=== PATIENT | female | born 1960 | race Caucasian/White ===

== ENCOUNTER 2017-04-07 21:57 | Observation (INO) | payer OTHER ==
[2017-04-07] MEDS ORDERED: Albuterol/Ipratropium 3.0-0.5 MG/3 ML Neb Soln NEB ONE (22:00)
[2017-04-07] MEDS ORDERED: methylPREDNISolone Sodium Succinate 125 MG/2 ML SDV IVPUSH ONE (22:01)
--- NOTE | 2017-04-07 22:03 | EDM.PDOC ---
ED HPI GENERAL MEDICAL PROBLEM - General Stated Complaint: CHEST PAIN/TROUBLE BREATHING Time Seen by Provider: 04/07/17 22:02 Source of Information: Reports: Patient - History of Present Illness INITIAL COMMENTS - FREE TEXT/NARRATIVE: HISTORY AND PHYSICAL: History of present illness: []Patient with history of colon cancer with metastasis presents with chest pain and shortness breath rates pain 5 out of 10 no radiation arm neck or jaw no association of diaphoresis there is a reproducible component over the left chest. She also has secondary complaint of throat swelling and tongue swelling No fever nausea vomiting chills sweats Review of systems: As per history of present illness and below otherwise all systems reviewed and negative. Past medical history: As per history of present illness and as reviewed below otherwise noncontributory. Surgical history: As per history of present illness and as reviewed below otherwise noncontributory. Social history: No reported history of drug or alcohol abuse. Family history: As per history of present illness and as reviewed below otherwise noncontributory. Physical exam: HEENT: Atraumatic, normocephalic, pupils reactive, negative for conjunctival pallor or scleral icterus, mucous membranes moist, throat clear, neck supple, nontender, trachea midline. No 12 tongue swelling lip swelling or oral pharyngeal edema no stridor Lungs: Clear to auscultation, breath sounds equal bilaterally, chest nontender. Heart: S1S2, regular, negative for clicks, rubs, or JVD. Abdomen: Soft, nondistended, nontender. Negative for masses or hepatosplenomegaly. Negative for costovertebral tenderness. Pelvis: Stable nontender. Genitourinary: Deferred. Rectal: Deferred. Extremities: Atraumatic, negative for cords or calf pain. Neurovascular unremarkable. Neuro: Awake, alert, oriented. Cranial nerves II through XII unremarkable. Cerebellum unremarkable. Motor and sensory unremarkable throughout. Exam nonfocal. Diagnostics: []Lab as below EKG Chest [address] chest angiogram no PE Therapeutics: []Solu-Medrol 125 mg IV DuoNeb Dilaudid 1 mg IV Patient admitted observation telemetry recommend consult with Dr. Winters cardiology Impression: Atypical chest pain []Chest tightness Shortness of breath Colon cancer with metastasis Last chemotherapy 1 week prior Definitive disposition and diagnosis as appropriate pending reevaluation and review of above. chest/abdomen Pain Score (Numeric/FACES): 7 - Related Data Allergies Allergy/AdvReac Type Severity Reaction Status Date / Time hydrocodone Allergy Unknown Hives Verified 04/07/17 22:35 ibuprofen Allergy Unknown Hives Verified 04/07/17 22:35 morphine Allergy Unknown Seizure Verified 04/07/17 22:35 nitroglycerin Allergy Unknown Difficulty Verified 04/07/17 22:35 Breathing caffeine Allergy Vomiting Verified 04/07/17 22:35 diphenhydramine HCl Allergy Excitabilit Verified 04/07/17 22:35 [From Benadryl] y Home Meds: Home Meds Diltiazem HCl [Diltiazem ER] 360 mg PO BEDTIME 05/09/14 [History] Hydrochlorothiazide 12.5 mg PO DAILY 05/09/14 [History] Insulin Glarg,Human.Rec.Analog [Lantus] 28 units SUBCUT BEDTIME 05/09/14 [ History] Pantoprazole [Protonix] 40 mg PO BIDAC 05/09/14 [History] atorvaSTATin Calcium [Atorvastatin Calcium] 20 mg PO BEDTIME 05/09/14 [History] metFORMIN [Glucophage] 1,000 mg PO BIDMEALS 05/09/14 [History] Insulin Aspart [NovoLOG] 14 units SQ TIDAC 12/02/14 [History] Dexamethasone 8 mg PO ASDIRECTED 10/27/15 [History] HYDROmorphone [Dilaudid] 2 mg PO Q6H PRN 10/27/15 [History] Loratadine 10 mg PO DAILY 10/27/15 [History] Ondansetron 4 mg PO Q6H PRN 10/27/15 [History] Prochlorperazine [Compazine] 10 mg PO QID PRN 10/27/15 [History] Valsartan 160 mg PO DAILY 10/27/15 [History] LORazepam [Ativan] 1 mg PO QID 12/26/15 [History] Estrogens, Conjugated [Premarin Vaginal Crm] 1 applic VAG ASDIRECTED 04/07/17 [ History] Past Medical History Cardiovascular History: Reports: High Cholesterol, Hypertension Gastrointestinal History: Reports: GERD Other Gastrointestinal History: hernia, colon CA 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: Psychiatric History: Reports: Anxiety, Depression Endocrine/Metabolic History: Reports: Diabetes, Type II Oncologic (Cancer) History: Reports: Colon - Past Surgical History GI Surgical History: Reports: Cholecystectomy, Colon, Hernia Repair/Other Social & Family History - Family History Family Medical History: Noncontributory - Tobacco Use Smoking Status *Q: Never Smoker Second Hand Smoke Exposure: Yes - Alcohol Use Days Per Week of Alcohol Use: 0 - Recreational Drug Use Recreational Drug Use: No ED ROS GENERAL - Review of Systems Review Of Systems: ROS reveals no pertinent complaints other than HPI. ED EXAM, GENERAL - Physical Exam Exam: See Below Course - Vital Signs Last Recorded V/S: Last Vital Signs Temp 36.3 C 04/07/17 22:03 Pulse 91 04/08/17 00:14 Resp 24 H 04/08/17 00:14 BP 188/109 H 04/08/17 00:14 Pulse Ox 99 04/08/17 00:14 - Orders/Labs/Meds Orders: Active Orders 24 hr Category Date Time Status EKG Documentation Completion [RC] STAT Care 04/07/17 22:01 Active RT Aerosol Therapy [RC] ASDIRECTED Care 04/07/17 22:01 Active CTA Chest W WO Contrast [Ang Chest] [CT] Stat Exams 04/07/17 23:33 Taken Chest 1V Frontal [CR] Stat Exams 04/07/17 22:01 Taken UA W/MICROSCOPIC [URIN] Stat Lab 04/08/17 01:00 Received Labs: Laboratory Tests 04/07/17 04/07/17 04/07/17 Range/Units 22:25 22:25 22:25 WBC 3.80 L (4.0-11.0) K/uL RBC 4.04 L (4.30-5.90) M/uL Hgb 12.5 (12.0-16.0) g/dL Hct 35.8 L (36.0-46.0) % MCV 88.6 (80.0-98.0) fL MCH 30.9 (27.0-32.0) pg MCHC 34.9 (31.0-37.0) g/dL RDW Std Deviation 57.1 (28.0-62.0) fl RDW Coeff of Ej 18 H (11.0-15.0) % Plt Count 135 L (150-400) K/uL MPV 9.80 (7.40-12.00) fL Neut % (Auto) 18.6 L (48.0-80.0) % Lymph % (Auto) 77.1 H (16.0-40.0) % [place] % (Auto) 3.2 (0.0-15.0) % Eos % (Auto) 1.1 (0.0-7.0) % Baso % (Auto) 0.0 (0.0-1.5) % Neut # (Auto) 0.7 L (1.4-5.7) K/uL Lymph # (Auto) 2.9 H (0.6-2.4) K/uL [place] # (Auto) 0.1 (0.0-0.8) K/uL Eos # (Auto) 0.0 (0.0-0.7) K/uL Baso # (Auto) 0.0 (0.0-0.1) K/uL Nucleated RBC % 0.0 /100WBC Nucleated RBCs # 0 K/uL D-Dimer, Quantitative (0.0-0.52) mg/LFEU Sodium 136 (136-146) mmol/L Potassium 3.3 L (3.5-5.1) mmol/L Chloride 103 (98-110) mmol/L Carbon Dioxide 18 L (21-31) mmol/L BUN 16 (6.0-23.0) mg/dL Creatinine 0.9 (0.6-1.5) mg/dL Est Cr Clr Drug Dosing TNP Estimated GFR (MDRD) > 60.0 ml/min Glucose 274 H (60-110) mg/dL Calcium 8.7 L (8.8-10.8) mg/dL Total Bilirubin 1.3 (0.1-1.5) mg/dL AST 34 (5-40) IU/L ALT 82 H (8-54) IU/L Alkaline Phosphatase 153 H (40-150) Troponin I < 0.10 (0.0-0.29) NG/ML Total Protein 6.7 (6.0-8.0) g/dL Albumin 3.8 (3.5-5.0) g/dL Globulin 2.9 (2.0-3.5) g/dL Albumin/Globulin Ratio 1.3 (1.3-2.8) // Range/Units 22:25 WBC (4.0-11.0) K/uL RBC (4.30-5.90) M/uL Hgb (12.0-16.0) g/dL Hct (36.0-46.0) % MCV (80.0-98.0) fL MCH (27.0-32.0) pg MCHC (31.0-37.0) g/dL RDW Std Deviation (28.0-62.0) fl RDW Coeff of Ej (11.0-15.0) % Plt Count (150-400) K/uL MPV (7.40-12.00) fL Neut % (Auto) (48.0-80.0) % Lymph % (Auto) (16.0-40.0) % [place] % (Auto) (0.0-15.0) % Eos % (Auto) (0.0-7.0) % Baso % (Auto) (0.0-1.5) % Neut # (Auto) (1.4-5.7) K/uL Lymph # (Auto) (0.6-2.4) K/uL [place] # (Auto) (0.0-0.8) K/uL Eos # (Auto) (0.0-0.7) K/uL Baso # (Auto) (0.0-0.1) K/uL Nucleated RBC % /100WBC Nucleated RBCs # K/uL D-Dimer, Quantitative 1.34 H (0.0-0.52) mg/LFEU Sodium (136-146) mmol/L Potassium (3.5-5.1) mmol/L Chloride (98-110) mmol/L Carbon Dioxide (21-31) mmol/L BUN (6.0-23.0) mg/dL Creatinine (0.6-1.5) mg/dL Est Cr Clr Drug Dosing Estimated GFR (MDRD) ml/min Glucose (60-110) mg/dL Calcium (8.8-10.8) mg/dL Total Bilirubin (0.1-1.5) mg/dL AST (5-40) IU/L ALT (8-54) IU/L Alkaline Phosphatase (40-150) Troponin I (0.0-0.29) NG/ML Total Protein (6.0-8.0) g/dL Albumin (3.5-5.0) g/dL Globulin (2.0-3.5) g/dL Albumin/Globulin Ratio (1.3-2.8) Meds: Medications Discontinued Medications Generic Name Dose Route Start Last Admin Trade Name Marshall PRN Reason Stop Dose Admin Albuterol/Ipratropium 3 ml 04/07/17 22:00 04/07/17 22:06 Duoneb 3.0-0.5 Mg/3 Ml NEB 04/07/17 22:01 3 ml ONETIME ONE Administration Hydromorphone HCl 1 mg 04/07/17 23:42 04/07/17 23:48 Dilaudid IVPUSH 04/07/17 23:43 1 mg ONETIME ONE Administration Iopamidol 50 ml 04/08/17 00:15 04/08/17 00:16 Isovue-370 (76%) IV 04/08/17 00:16 50 ml ONETIME ONE Administration Methylprednisolone Sodium Succinate 125 mg 04/07/17 22:01 04/07/17 22:39 Solu-Medrol IVPUSH 04/07/17 22:02 125 mg ONETIME ONE Administration Morphine Sulfate 2 mg 04/07/17 23:41 04/08/17 00:11 Morphine IV 04/07/17 23:42 Not Given ONETIME ONE Departure - Departure Time of Disposition: 01:14 Disposition: Refer to Observation Condition: Fair Clinical Impression: Atypical chest pain - Discharge Information - My Orders Last 24 Hours: My Active Orders 04/07/17 22:01 EKG Documentation Completion [RC] STAT RT Aerosol Therapy [RC] ASDIRECTED Chest 1V Frontal [CR] Stat 04/07/17 23:33 CTA Chest W WO Contrast [Ang Chest] [CT] Stat 04/08/17 01:00 UA W/MICROSCOPIC [URIN] Stat - Assessment/Plan Last 24 Hours: My Active Orders 04/07/17 22:01 EKG Documentation Completion [RC] STAT RT Aerosol Therapy [RC] ASDIRECTED Chest 1V Frontal [CR] Stat 04/07/17 23:33 CTA Chest W WO Contrast [Ang Chest] [CT] Stat 04/08/17 01:00 UA W/MICROSCOPIC [URIN] Stat
[2017-04-07 23:04] LABS: CHLORIDE,CL 103 mmol/L (98-110); SODIUM,NA 136 mmol/L (136-146)
[2017-04-07] MEDS ORDERED: Morphine 10 MG/ML Syringe IV ONE (23:41)
[2017-04-07] MEDS ORDERED: HYDROmorphone 2 MG/ML Syringe IVPUSH ONE (23:42)
[2017-04-08] MEDS ORDERED: Iopamidol 755 MG/ML 50 ML Bottle IV ONE (00:15)
[2017-04-08] MEDS ORDERED: Potassium Chloride 20 MEQ Tab.ER PO ONE (03:12)
[2017-04-08] MEDS ORDERED: Acetaminophen/oxyCODONE 325-5 MG Tab PO PRN (03:14)
[2017-04-08] MEDS ORDERED: Ondansetron 4 MG Tab.DIS PO PRN (03:14)
[2017-04-08] MEDS ORDERED: LORazepam 1 MG Tab PO PRN (03:14)
[2017-04-08] MEDS: Insulin Glargine,Human Rec. Analog 100 Units/ML 3 ML Pen SUBCUT SCH ×2 (03:26→20:24)
[2017-04-08] MEDS: atorvaSTATin 20 MG Tab PO SCH ×2 (03:26→20:23)
[2017-04-08] MEDS: Diltiazem 180 MG Cap.CD PO SCH ×2 (03:26→20:23)
[2017-04-08] MEDS: Pantoprazole 40 MG Tab.CR PO SCH ×2 (06:40→16:26)
[2017-04-08] MEDS: Insulin Aspart 100 Units/ML 3 ML Pen SUBCUT SCH ×3 (07:00→17:15)
[2017-04-08] MEDS: Loratadine 10 MG Tab PO SCH (08:11)
[2017-04-08] MEDS: Hydrochlorothiazide 25 MG Tab PO SCH (08:11)
[2017-04-08] MEDS ORDERED: Benzocaine/Cetylpyridinium/Menthol Lozenge MUCMEM PRN (08:37)
--- NOTE | 2017-04-08 08:45 | PCM.HP ---
H&P History of Present Illness - General Date of Service: 04/08/17 - History of Present Illness Initial Comments - Free Text/Narative: 57 yo female with metastatic colon cancer admitted for atypical chest pain. She c/o of sorethroat, diffuse pain in chest and abdomen and diarhea. She denies fever, chills, n/v, pain on swallowing, headache, cough, dysuria, frequency or urgency. She is doing her third round of chemo one week ago. She had similar symptoms during chemotherapy but has not experienced sore throat. Her initial troponin is negatvie. No acute EKG changes. Her chest angio negative. Her Dimer was 1.34, UA 30-40 wbc. In the ED, she received solumedrol. Throat Pain Score (Numeric/FACES): 5 chest/abdomen Pain Score (Numeric/FACES): 2 - Related Data Allergies/Adverse Reactions: Allergies Allergy/AdvReac Type Severity Reaction Status Date / Time hydrocodone Allergy Unknown Hives Verified 04/07/17 22:35 ibuprofen Allergy Unknown Hives Verified 04/07/17 22:35 morphine Allergy Unknown Seizure Verified 04/07/17 22:35 nitroglycerin Allergy Unknown Difficulty Verified 04/07/17 22:35 Breathing caffeine Allergy Vomiting Verified 04/07/17 22:35 diphenhydramine HCl Allergy Excitabilit Verified 04/07/17 22:35 [From Benadryl] y Home Medications: Home Meds Diltiazem HCl [Diltiazem ER] 360 mg PO BEDTIME 05/09/14 [History] Hydrochlorothiazide 12.5 mg PO DAILY 05/09/14 [History] Insulin Glarg,Human.Rec.Analog [Lantus] 50 units SUBCUT BEDTIME 05/09/14 [ History] Pantoprazole [Protonix] 40 mg PO BIDAC 05/09/14 [History] atorvaSTATin Calcium [Atorvastatin Calcium] 20 mg PO BEDTIME 05/09/14 [History] metFORMIN [Glucophage] 1,000 mg PO BIDMEALS 05/09/14 [History] Insulin Aspart [NovoLOG] 14 units SQ TIDAC 12/02/14 [History] Dexamethasone 8 mg PO ASDIRECTED 10/27/15 [History] HYDROmorphone [Dilaudid] 2 mg PO Q6H PRN 10/27/15 [History] Loratadine 10 mg PO DAILY 10/27/15 [History] Prochlorperazine [Compazine] 10 mg PO QID PRN 10/27/15 [History] Valsartan 160 mg PO DAILY 10/27/15 [History] LORazepam [Ativan] 1 mg PO QID PRN 12/26/15 [History] Estrogens, Conjugated [Premarin Vaginal Crm] 1 applic VAG ASDIRECTED 04/07/17 [ History] Ondansetron [Zofran ODT] 4 mg PO Q4H PRN 04/08/17 [History] oxyCODONE HCl/Acetaminophen [oxyCODONE-Acetaminophen 5-325] 1 tab PO Q4H PRN 03/20 [History] Past Medical History Cardiovascular History: Reports: High Cholesterol, Hypertension Respiratory History: Reports: None Gastrointestinal History: Reports: GERD Other Gastrointestinal History: hernia, colon [place] Genitourinary History: Reports: None 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 History: Reports: None Neurological History: Reports: None Psychiatric History: Reports: Anxiety, Depression Endocrine/Metabolic History: Reports: Diabetes, Type II Hematologic History: Reports: None Immunologic History: Reports: None Oncologic (Cancer) History: Reports: Colon Dermatologic History: Reports: None - Infectious Disease History Infectious Disease History: Reports: None - Past Surgical History HEENT Surgical History: Reports: Adenoidectomy, Tonsillectomy GI Surgical History: Reports: Cholecystectomy, Colon, Hernia Repair/Other Female Surgical History: Reports: Hysterectomy, Salpingo-Oophorectomy Endocrine Surgical History: Reports: None Musculoskeletal Surgical History: Reports: None Dermatological Surgical History: Reports: None Social & Family History - Family History Family Medical History: Noncontributory GI: Reports: None - Tobacco Use Smoking Status *Q: Never Smoker Second Hand Smoke Exposure: Yes - Caffeine Use Caffeine Use: Reports: None - Alcohol Use Days Per Week of Alcohol Use: 0 - Recreational Drug Use Recreational Drug Use: No H&P Review of Systems - Review of Systems: Review Of Systems: See Below General: Reports: No Symptoms HEENT: Reports: No Symptoms Pulmonary: Reports: No Symptoms. Denies: Shortness of Breath, Cough Cardiovascular: Reports: Chest Pain. Denies: Palpitations Gastrointestinal: Reports: Abdominal Pain, Diarrhea Genitourinary: Reports: No Symptoms Musculoskeletal: Reports: No Symptoms Skin: Reports: No Symptoms Psychiatric: Reports: No Symptoms Neurological: Reports: No Symptoms Exam - Exam Exam: See Below - Vital Signs Vital Signs: Last Vital Signs Temp 97.7 F 04/08/17 07:48 Pulse 98 04/08/17 07:48 Resp 16 04/08/17 07:48 BP 143/86 H 04/08/17 08:10 Pulse Ox 96 04/08/17 07:48 Weight: 72.575 kg - Exam General: Alert, Oriented HEENT: Conjunctiva Clear, EOMI, Other (Throat: no erythema, No exudates. No tonsils visualized.) Neck: Supple, Trachea Midline Lungs: Clear to Auscultation, Normal Respiratory Effort Cardiovascular: Regular Rate, Regular Rhythm Abdomen: Normal Bowel Sounds, Soft. No: Distention, Rigidity, Tenderness Back Exam: Normal Inspection Extremities: Normal Inspection Neurological: Cranial Nerves Intact Neuro Extensive - Mental Status: Alert, Oriented x3 - Patient Data Lab Results Last 24 hrs: Laboratory Results - last 24 hr 04/08/17 04/08/17 04/08/17 Range/Units 02:20 04:00 06:30 POC Glucose 400 H 372 H (60-110) mg/dL Troponin I < 0.10 (0.0-0.29) NG/ML Result Diagrams: 04/08/17 10:45 04/07/17 22:25 *Q Meaningful Use (ADM) - VTE *Q VTE Criteria *Q: - Stroke *Q Stroke Criteria *Q: - AMI *Q AMI Criteria *Q: Problem List Initiated/Reviewed/Updated: Yes Orders Last 24hrs: Active Orders 24 hr Category Date Time Status Blood Glucose Check, Bedside [] [facility] Care 04/08/17 03:13 Active Communication Order [RC] DAILY Care 04/08/17 03:13 Active Telemetry Monitoring [Cardiac Monitoring] [RC] Q8H Care 04/08/17 01:17 Active [place] [employer] Diet [DIET] Diet 04/08/17 Breakfast Active TROPONIN I [CHEM] Q6H Lab 04/08/17 10:25 Ordered Acetaminophen/oxyCODONE [Percocet 325-5 MG] Med 04/08/17 03:14 Active 1 tab PO Q4H PRN Benzocaine/Cetylpyrd/Menthol [Cepacol Sore Throat] Med 04/08/17 08:37 Ordered 1 lozenge MUCMEM Q2HR PRN Diltiazem [Cardizem CD] Med 04/08/17 03:04 Active 360 mg PO BEDTIME Hydrochlorothiazide Med 04/08/17 09:00 Active 12.5 mg PO DAILY Insulin Aspart [NovoLOG] Med 04/08/17 07:30 Active 14 unit SUBCUT TIDAC Insulin Glarg,Human.Rec.Analog [LantUS Solostar] Med 04/08/17 03:15 Active 50 units SUBCUT BEDTIME LORazepam [Ativan] Med 04/08/17 03:14 Active 1 mg PO QID PRN Loratadine [Claritin] Med 04/08/17 09:00 Active 10 mg PO DAILY Ondansetron [Zofran ODT] Med 04/08/17 03:14 Active 4 mg PO Q4H PRN Pantoprazole [ProTONIX] Med 04/08/17 07:30 Active 40 mg PO BIDAC Potassium Chloride Med 04/08/17 09:00 Ordered 40 meq PO DAILY Valsartan [Diovan] Med 04/08/17 09:00 Active 160 mg PO DAILY atorvaSTATin [Lipitor] Med 04/08/17 03:02 Active 20 mg PO BEDTIME Medication Orders Atorvastatin Calcium (Lipitor) 20 mg PO BEDTIME [facility] Last Admin: 04/08/17 03:26 Dose: 20 mg Benzocaine/Menthol (Cepacol Sore Throat) 1 lozenge MUCMEM Q2HR PRN PRN Reason: Shortness of Breath Diltiazem HCl (Cardizem Cd) 360 mg PO BEDTIME [facility] Last Admin: 04/08/17 03:26 Dose: 360 mg Hydrochlorothiazide (Hydrochlorothiazide) 12.5 mg PO DAILY [facility] Last Admin: 04/08/17 08:11 Dose: 12.5 mg Insulin Aspart (Novolog) 14 unit SUBCUT TIDAC [facility] Last Admin: 04/08/17 07:00 Dose: 14 units Insulin Glargine (Lantus Solostar) 50 units SUBCUT BEDTIME [facility] Last Admin: 04/08/17 03:26 Dose: 50 units Loratadine (Claritin) 10 mg PO DAILY [facility] Last Admin: 04/08/17 08:11 Dose: 10 mg Lorazepam (Ativan) 1 mg PO QID PRN PRN Reason: Anxiety Ondansetron HCl (Zofran Odt) 4 mg PO Q4H PRN PRN Reason: Nausea/Vomiting Oxycodone/Acetaminophen (Percocet 325-5 Mg) 1 tab PO Q4H PRN PRN Reason: Pain (moderate 4-6) Last Admin: 04/08/17 06:09 Dose: 1 tab Pantoprazole Sodium (Protonix) 40 mg PO BIDAC MARIA T Last Admin: 04/08/17 06:40 Dose: 40 mg Potassium Chloride (Potassium Chloride) 40 meq PO DAILY MARIA T Valsartan (Diovan) 160 mg PO DAILY [facility] Last Admin: 04/08/17 08:10 Dose: 160 mg Assessment/Plan Comment:: 57 yo female admitted for r/o ACS trend troponin monitor on telemetry UA suggestive UTI start levaquin urine culture pending Diarrhea start IVF NS monitor electrolytes
[2017-04-08] MEDS ORDERED: Potassium Chloride 10% 20 MEQ/15 ML Soln 30 ML UD Cup PO SCH (09:00)
[2017-04-08] MEDS ORDERED: Alum Hydrox/Mag Hydrox/Simeth 15 ML, Metoclopramide 5 MG, Lidocaine 2% 5 ML PO ONE ×6 (09:56→10:15)
[2017-04-08] MEDS: Levofloxacin 500 MG Tab PO SCH (10:07)
[2017-04-08] MEDS: HYDROmorphone 2 MG Tab PO PRN ×3 (10:07→23:34)
[2017-04-08] MEDS: Sodium Chloride 0.9% 1,000 ML IV SCH ×2 (10:11→18:09)
[2017-04-08 11:56] LABS: CHLORIDE,CL 104 mmol/L (98-110); SODIUM,NA 134 mmol/L (136-146)
--- NOTE | 2017-04-08 15:17 | CR ---
EXAM DATE: 04/08/17 PATIENT'S AGE: 57 Patient: JOCELYNN SANTIAGO Facility: [place], [place] Site . Site : 1960 Study: XRay Chest [id number]/5/[id number] 10:46:20 PM Ordering Physician: Doctor Esparza Final Report: INDICATION: Shortness of breath TECHNIQUE: Chest 1 view. COMPARISON: FINDINGS: Cardiovascular and mediastinum: Heart size and vasculature are normal in caliber and appearance. Left-sided subclavian line tip terminates in the distal SVC. Mediastinum is within normal limits. Lungs and pleural space: Lungs are clear. No sign of infiltrate or mass. No sign of pleural effusion. No pneumothorax. Bones and soft tissues: No significant findings. IMPRESSION: Unremarkable chest. Dictated by Boyd Fernando MD @ 04/07/2017 10:52:18 PM Dictated by: Boyd Fernando MD @ 04/07/2017 22:52:21 (Electronic Signature) Report Signed by Proxy. [facility]
--- NOTE | 2017-04-08 16:15 | CT ---
EXAM DATE: 04/08/17 PATIENT'S AGE: 57 Patient: JOCELYNN SANTIAGO Facility: [place], [place] Site . Site : 1960 Study: CT Chest Angio [id number] 12:20:21 AM Ordering Physician: Sury Malik Final Report: INDICATION: Elevated D-dimer TECHNIQUE: CT chest pulmonary angiogram acquired with i.v. 50 mL Isovue 370. Coronal and sagittal reformats were obtained. COMPARISON: 03/10/2008 FINDINGS: Cardiovascular structures: The pulmonary arteries are unremarkable in appearance with no evidence of acute pulmonary embolism. Thickening of the right and left ventricular myocardium is noted. No sign of aneurysm or dissection in the thoracic aorta. Severe coronary artery atherosclerotic calcifications are noted. Mediastinum and diane: Calcified right cardiophrenic lymph node, right hilar, subcarinal and precarinal lymph nodes are present from prior granulomatous infection. Left Port-A-Cath present. Lungs: Unremarkable. Pleura and pericardium: No pleural effusions are seen. No significant pericardial effusion is present. Chest wall and axilla: No mass or adenopathy seen. Bones: No significant findings. Upper abdomen: Innumerable calcified granulomas are seen within the visualized liver and spleen. IMPRESSION: 1. No CT evidence of pulmonary embolism seen. 2. Thickening of the right and left ventricular myocardium is noted. Severe coronary artery atherosclerotic calcifications are noted. Cardiology consultation recommended. Dictated by Jarret Quinteros MD @ 04/08/2017 12:29:18 AM Dictated by: Jarret Quinteros MD @ 04/08/2017 00:30:52 (Electronic Signature) Report Signed by Proxy. [facility]
[2017-04-09] MEDS: Sodium Chloride 0.9% 1,000 ML IV SCH (02:14)
[2017-04-09] MEDS: Pantoprazole 40 MG Tab.CR PO SCH (07:17)
[2017-04-09] MEDS: Insulin Aspart 100 Units/ML 3 ML Pen SUBCUT SCH (07:49)
[2017-04-09] MEDS: Loratadine 10 MG Tab PO SCH (08:29)
[2017-04-09] MEDS: Hydrochlorothiazide 25 MG Tab PO SCH (08:29)
[2017-04-09 08:30] VITALS: BP 129/66
[2017-04-09 08:53] LABS: CHLORIDE,CL 107 mmol/L (98-110); SODIUM,NA 135 mmol/L (136-146)
[2017-04-09] MEDS: Levofloxacin 500 MG Tab PO SCH (10:01)
--- NOTE | 2017-04-10 23:54 | PCM.DCSUM1 ---
Discharge Summary - Hospital Course Free Text/Narrative:: 57-year-old female with history of admitted for rule out ACS. Her initial symptoms were chest pain, shortness of breath, tongue swelling, diffuse abdominal pain and diarrhea. In emergency room she was given Solu-Medrol. D- dimer was 1.34, chest x-ray is negative chest CT was negative for PE. EKG did not reveal any ST or T wave changes. Her UA was positive for UTI. Rapid strep screen was negative. She was hydrated with IVF. She was started on PO Levaquin. Her potassium was 3.3 and was replaced. Her white count improved from 2.4-5.4 also could be from Solu-Medrol she received from the emergency room. Troponin x3 negative She did not have any diarrhea since admission and she improved. She is discharged in stable condition. Discharged with Levaquin for 6 days to resume home medications. follow up with her PCP and oncology. - Discharge Data Discharge Date: 04/09/17 Discharge Disposition: Home, Self-Care 01 Condition: Good - Patient Instructions Diet: Heart Healthy Diet, Diabetic Diet Activity: As Tolerated Driving: Do Not Drive Showering/Bathing: May Shower Notify Provider of: Fever, Increased Pain, Swelling and Redness, Drainage, Nausea and/or Vomiting - Discharge Plan Prescriptions/Med Rec: Levofloxacin [Levaquin] 500 mg PO Q24H #6 tablet Home Medications: Home Meds Diltiazem HCl [Diltiazem 24Hr ER] 360 mg PO BEDTIME 05/09/14 [History] Hydrochlorothiazide 12.5 mg PO DAILY 05/09/14 [History] Insulin Glarg,Human.Rec.Analog [Lantus] 50 units SUBCUT BEDTIME 05/09/14 [ History] Pantoprazole [ProTONIX] 40 mg PO BIDAC 05/09/14 [History] atorvaSTATin Calcium [Atorvastatin Calcium] 20 mg PO BEDTIME 05/09/14 [History] metFORMIN [Glucophage] 1,000 mg PO BIDMEALS 05/09/14 [History] Insulin Aspart [NovoLOG] 14 units SQ TIDAC 12/02/14 [History] Dexamethasone 8 mg PO ASDIRECTED 10/27/15 [History] HYDROmorphone [Dilaudid] 2 mg PO Q6H PRN 10/27/15 [History] Loratadine 10 mg PO DAILY 10/27/15 [History] Prochlorperazine [Compazine] 10 mg PO QID PRN 10/27/15 [History] Valsartan 160 mg PO DAILY 10/27/15 [History] LORazepam [Ativan] 1 mg PO QID PRN 12/26/15 [History] Estrogens, Conjugated [Premarin Vaginal Crm] 1 applic VAG ASDIRECTED 04/07/17 [ History] Ondansetron [Zofran ODT] 4 mg PO Q4H PRN 04/08/17 [History] oxyCODONE HCl/Acetaminophen [oxyCODONE-Acetaminophen 5-325] 1 tab PO Q4H PRN 03/20 [History] Diltiazem [Cardizem CD] 360 mg PO BEDTIME cap.cd 04/09/17 [Rx] Insulin Aspart [NovoLOG] 14 unit SUBCUT TIDAC pen 04/09/17 [Rx] Insulin Glarg,Human.Rec.Analog [LantUS Solostar] 50 units SUBCUT BEDTIME pen [Rx] Levofloxacin [Levaquin] 500 mg PO Q24H #6 tablet 04/09/17 [Rx] Patient Handouts: Urinary Tract Infection, Adult, [id number], Nonspecific Chest Pain, [id number], Levofloxacin tablets Referrals: [facility] [Outside] - 04/22/17 - General Info Date of Service: 04/09/17 Functional Status: Reports: pain controlled, tolerating diet - Review of Systems General: Reports: No Symptoms, Fever, Weakness HEENT: Reports: no symptoms Pulmonary: Reports: no symptoms Cardiovascular: Reports: No Symptoms Gastrointestinal: Reports: No symptoms Genitourinary: Reports: no symptoms Musculoskeletal: Reports: no symptoms Skin: Reports: no symptoms Neurological: Reports: No Symptoms Psychiatric: Reports: no symptoms - Patient Data Vitals - Most Recent: Last Vital Signs Temp 97.0 F 04/09/17 08:00 Pulse 51 L 04/09/17 08:00 Resp 18 04/09/17 08:00 BP 129/66 04/09/17 08:29 Pulse Ox 97 04/09/17 04:32 Weight - Most Recent: 72.575 kg [place] Results - Last 24 hrs: Microbiology 04/08/17 10:50 Quick Strep Confirmation Culture - Final Throat NO GROUP A STREP ISOLATED Group A Streptococcus Rapid Screen - Final NEGATIVE STREP A SCREEN Med Orders - Current: Current Medications Discontinued Medications Albuterol/Ipratropium (Duoneb 3.0-0.5 Mg/3 Ml) 3 ml NEB ONETIME ONE Stop: 04/07/17 22:01 Last Admin: 04/07/17 22:06 Dose: 3 ml Atorvastatin Calcium (Lipitor) 20 mg PO BEDTIME [facility] Last Admin: 04/08/17 20:23 Dose: 20 mg Benzocaine/Menthol (Cepacol Sore Throat) 1 lozenge MUCMEM Q2HR PRN PRN Reason: Shortness of Breath Last Admin: 04/08/17 08:59 Dose: 1 lozenge Al Hydroxide/Mg Hydroxide 15 ml/ Metoclopramide HCl 5 mg/Lidocaine HCl 5 ml 0 ml PO ONETIME ONE Stop: 04/08/17 10:16 Last Admin: 04/08/17 10:41 Dose: 25 each Diltiazem HCl (Cardizem Cd) 360 mg PO BEDTIME [facility] Last Admin: 04/08/17 20:23 Dose: 360 mg Hydrochlorothiazide (Hydrochlorothiazide) 12.5 mg PO DAILY [facility] Last Admin: 04/09/17 08:29 Dose: 12.5 mg Hydromorphone HCl (Dilaudid) 1 mg IVPUSH ONETIME ONE Stop: 04/07/17 23:43 Last Admin: 04/07/17 23:48 Dose: 1 mg Hydromorphone HCl (Dilaudid) 2 mg PO Q6H PRN PRN Reason: moderate pain Last Admin: 04/08/17 23:34 Dose: 2 mg Sodium Chloride (Normal Saline) 1,000 mls @ 125 mls/hr IV ASDIRECTED [facility] Last Admin: 04/09/17 02:14 Dose: 125 mls/hr Insulin Aspart (Novolog) 14 unit SUBCUT TIDAC [facility] Last Admin: 04/09/17 07:49 Dose: Not Given Insulin Glargine (Lantus Solostar) 50 units SUBCUT BEDTIME [facility] Last Admin: 04/08/17 20:24 Dose: 50 units Iopamidol (Isovue-370 (76%)) 50 ml IV ONETIME ONE Stop: 04/08/17 00:16 Last Admin: 04/08/17 00:16 Dose: 50 ml Levofloxacin (Levaquin) 500 mg PO Q24H [facility] Last Admin: 04/09/17 10:01 Dose: 500 mg Loratadine (Claritin) 10 mg PO DAILY [facility] Last Admin: 04/09/17 08:29 Dose: 10 mg Lorazepam (Ativan) 1 mg PO QID PRN PRN Reason: Anxiety Methylprednisolone Sodium Succinate (Solu-Medrol) 125 mg IVPUSH ONETIME ONE Stop: 04/07/17 22:02 Last Admin: 04/07/17 22:39 Dose: 125 mg Morphine Sulfate (Morphine) 2 mg IV ONETIME ONE Stop: 04/07/17 23:42 Last Admin: 04/08/17 00:11 Dose: Not Given Ondansetron HCl (Zofran Odt) 4 mg PO Q4H PRN PRN Reason: Nausea/Vomiting Oxycodone/Acetaminophen (Percocet 325-5 Mg) 1 tab PO Q4H PRN PRN Reason: Pain (moderate 4-6) Last Admin: 04/08/17 06:09 Dose: 1 tab Pantoprazole Sodium (Protonix) 40 mg PO BIDAC [facility] Last Admin: 04/09/17 07:17 Dose: 40 mg Potassium Chloride (Klor-Con M20) 40 meq PO ONETIME ONE Stop: 04/08/17 03:13 Last Admin: 04/08/17 03:26 Dose: 40 meq Potassium Chloride (Potassium Chloride) 40 meq PO DAILY [facility] Valsartan (Diovan) 160 mg PO DAILY [facility] Last Admin: 04/09/17 08:29 Dose: 160 mg - Exam General: Reports: alert HEENT: Reports: Pupils equal, EOMI, Mucous membr. moist/pink Neck: Reports: supple, trachea midline Lungs: Reports: Clear to auscultation, Normal respiratory effort Cardiovascular: Reports: Regular Rate, Regular Rhythm Abdomen: Reports: bowel sounds present, soft, no tenderness, no distension Extremities: Reports: no edema Skin: Reports: warm, dry, intact Neurological: Reports: no new focal deficit Psy/Mental Status: Reports: alert, normal affect, normal mood *Q Meaningful Use (DIS) - VTE *Q VTE Criteria *Q: - Stroke *Q Stroke Criteria *Q: - AMI *Q AMI Criteria *Q:
== END 2017-04-09 11:55 | disposition home or self-care (01) ==
LOC: MW.ED 21:57 → MW.MS 04-08 01:15
PROVIDERS: ADMIT Internal Medicine; ATTEND Internal Medicine
DX: R07.89 Other chest pain (principal); N39.0 Urinary tract infection, site not specified; E78.00 Pure hypercholesterolemia, unspecified; I10 Essential (primary) hypertension; C18.9 Malignant neoplasm of colon, unspecified; F41.9 Anxiety disorder, unspecified; F32.9 Major depressive disorder, single episode, unspecified; E11.9 Type 2 diabetes mellitus without complications; Z88.5 Allergy status to narcotic agent; Z88.6 Allergy status to analgesic agent; Z88.8 Allergy status to other drugs, medicaments and biological substances; Z91.018 Allergy to other foods; Z79.4 Long term (current) use of insulin; Z79.84 Long term (current) use of oral hypoglycemic drugs; Z79.899 Other long term (current) drug therapy; Z90.49 Acquired absence of other specified parts of digestive tract; Z90.710 Acquired absence of both cervix and uterus; Z90.79 Acquired absence of other genital organ(s); Z90.89 Acquired absence of other organs; Z98.890 Other specified postprocedural states
CPT/HCPCS: 36415; 71010; 71275; 80048; 80053; 81001; 82962; 84484; 85025; 85379; 87081; 87880; 93005; 94664; 96361; 96374; 96375; 99285; A9270; G0378; J1170; J1815; J2930; J7040; Q9967; 99283

== ENCOUNTER 2017-05-02 19:43 | Inpatient (IN) | payer OTHER ==
[2017-05-02] MEDS ORDERED: Sodium Chloride 0.9% 10 ML Syringe FLUSH PRN (20:02)
[2017-05-02] MEDS ORDERED: Ondansetron 4 MG/2 ML SDV IVPUSH ONE (20:02)
[2017-05-02] MEDS ORDERED: Sodium Chloride 0.9% 2.5 ML Syringe FLUSH PRN (20:02)
--- NOTE | 2017-05-02 20:08 | EDM.PDOC ---
ED HPI GENERAL MEDICAL PROBLEM - General Chief Complaint: Respiratory Problem Stated Complaint: CHEST PAIN/TROUBLE BREATHING/STOMACH PAIN Time Seen by Provider: 05/02/17 19:46 - History of Present Illness INITIAL COMMENTS - FREE TEXT/NARRATIVE: HISTORY AND PHYSICAL: History of present illness: The patient is a 57-year-old female with a history of diabetes hypertension hypercholesterolemia and metastatic colon cancer for which she has both had surgery and is currently on chemotherapy through [facility]; the patient presents today with onset of chest and abdomen pain shortness of breath nausea and vomiting that all started today. The patient had similar presenting symptoms and was admitted here the beginning of April and had a cardiac rule out as well as a chest CT which was negative and she was diagnosed with UTI and sent home on antibiotics. At that time she also had some tongue swelling and some dysphasia which was not further evaluated and the patient states it improved. The patient also says that today that discomfort his back again and she is able to swallow liquids and food but she feels like there is phlegm there and it feels like it's swollen. She has no oral swelling or tongue swelling. She has no rashes. The patient says that she gets chemotherapy every other week on days through Wednesday which she administers to herself at home--- she says that the hospital accesses her port she connects the chemotherapy and then she flushes the port and does the D access her self. The patient says that she just finished this round of chemotherapy yesterday. She's not had any fevers. She has no discrete chest pain just "discomfort and shortness of breath". She is very vague on her symptoms and says she has been having normal bowel movements but earlier this month it was loose and diarrhea. Her bowel movements are black and bloody. She is trying to eat and drink and she has no head neck or back pain. She has no runny nose or sore throat and actually no fever at home. Patient overall is very vague with her symptoms of the throat discomfort/ododysphasia, chest and abdominal discomfort. The patient was treated completely for her UTI after her last admission is currently on no antibiotics. Review of systems: As per history of present illness and below otherwise all systems reviewed and negative. Past medical history: As per history of present illness and as reviewed below otherwise noncontributory. Surgical history: As per history of present illness and as reviewed below otherwise noncontributory. Social history: No reported history of drug or alcohol abuse. Family history: As per history of present illness and as reviewed below otherwise noncontributory. Physical exam: Gen.: Well-developed well-nourished female who is nontoxic and speaking clearly and easily in the ED without breathlessness. She moves easily in the ED. HEENT: Atraumatic, normocephalic, pupils reactive, negative for conjunctival pallor or scleral icterus, mucous membranes moist, throat clear, neck supple, nontender, trachea midline. Patient has an overall pale appearance. There is no lip tongue or posterior oropharyngeal erythema and no evidence of any thrush and there is no facial swelling Lungs: Clear to auscultation, breath sounds equal bilaterally, chest nontender. There is no work or breathing or sensory muscle use no stridor or wheezing. Port is identified in the left upper chest wall without erythema or tenderness or swelling Heart: S1S2, regular, negative for clicks, rubs, or JVD. Abdomen: Soft, nondistended, nontender. Patient has a well-healed midline abdominal scar without hernia and has no tympany on percussion. Bowel sounds are slightly hypoactive. She has no discrete tenderness in any location and is soft without rebound or guarding. Cannot really elicit much tenderness on palpation. Negative for masses or hepatosplenomegaly. Negative for costovertebral tenderness. Pelvis: Stable nontender. Genitourinary: Deferred. Rectal: Deferred. Extremities: Atraumatic, negative for cords or calf pain. Neurovascular unremarkable. No pedal edema or leg asymmetry Neuro: Awake, alert, oriented. Cranial nerves II through XII unremarkable. Cerebellum unremarkable. Motor and sensory unremarkable throughout. Exam nonfocal. Diagnostics: EKG CBC CMP BNP INR lactic acid amylase and lipase troponin UA urine culture CT scan of the abdomen and pelvis Chest x-ray blood cultures Patient had a CTA of her chest performed on April 07 which was negative for PE and I reviewed those results Therapeutics: IV O2 monitor gentle IV fluids Zofran Zosyn Please note that the patient would not allow us to access the port to get a blood culture. 0004: As the patient will prefer to stay here rather than be transferred the patient's case was discussed with Dr. Baldwin who accepts her for UTI dehydration. Patient is good with this care plan. She's currently looking much improved with her coloring and feels better. Impression: UTI with dehydration, rule out early sepsis, history of colon cancer on chemotherapy stable Definitive disposition and diagnosis as appropriate pending reevaluation and review of above. chest Pain Score (Numeric/FACES): 9 - Related Data Allergies Allergy/AdvReac Type Severity Reaction Status Date / Time hydrocodone Allergy Unknown Hives Verified 04/07/17 22:35 ibuprofen Allergy Unknown Hives Verified 04/07/17 22:35 morphine Allergy Unknown Seizure Verified 04/07/17 22:35 nitroglycerin Allergy Unknown Difficulty Verified 04/07/17 22:35 Breathing caffeine Allergy Vomiting Verified 04/07/17 22:35 diphenhydramine HCl Allergy Excitabilit Verified 04/07/17 22:35 [From Benadryl] y Home Meds: Home Meds Diltiazem HCl [Diltiazem 24Hr ER] 360 mg PO BEDTIME 05/09/14 [History] Hydrochlorothiazide 12.5 mg PO DAILY 05/09/14 [History] Insulin Glarg,Human.Rec.Analog [Lantus] 50 units SUBCUT BEDTIME 05/09/14 [ History] Pantoprazole [ProTONIX] 40 mg PO BIDAC 05/09/14 [History] atorvaSTATin Calcium [Atorvastatin Calcium] 20 mg PO BEDTIME 05/09/14 [History] metFORMIN [Glucophage] 1,000 mg PO BIDMEALS 05/09/14 [History] Insulin Aspart [NovoLOG] 14 units SQ TIDAC 12/02/14 [History] Dexamethasone 8 mg PO ASDIRECTED 10/27/15 [History] HYDROmorphone [Dilaudid] 2 mg PO Q6H PRN 10/27/15 [History] Loratadine 10 mg PO DAILY 10/27/15 [History] Prochlorperazine [Compazine] 10 mg PO QID PRN 10/27/15 [History] Valsartan 160 mg PO DAILY 10/27/15 [History] LORazepam [Ativan] 1 mg PO QID PRN 12/26/15 [History] Estrogens, Conjugated [Premarin Vaginal Crm] 1 applic VAG ASDIRECTED 04/07/17 [ History] Ondansetron [Zofran ODT] 4 mg PO Q4H PRN 04/08/17 [History] oxyCODONE HCl/Acetaminophen [oxyCODONE-Acetaminophen 5-325] 1 tab PO Q4H PRN 03/20 [History] Diltiazem [Cardizem CD] 360 mg PO BEDTIME cap.cd 04/09/17 [Rx] Insulin Aspart [NovoLOG] 14 unit SUBCUT TIDAC pen 04/09/17 [Rx] Insulin Glarg,Human.Rec.Analog [LantUS Solostar] 50 units SUBCUT BEDTIME pen [Rx] Levofloxacin [Levaquin] 500 mg PO Q24H #6 tablet 04/09/17 [Rx] Past Medical History Cardiovascular History: Reports: High Cholesterol, Hypertension Respiratory History: Reports: None Gastrointestinal History: Reports: GERD Other Gastrointestinal History: hernia, colon CA Genitourinary History: Reports: None [employer] History: Reports: Musculoskeletal History: Reports: None Neurological History: Reports: None Psychiatric History: Reports: Anxiety, Depression Endocrine/Metabolic History: Reports: Diabetes, Type II Hematologic History: Reports: None Immunologic History: Reports: None Oncologic (Cancer) History: Reports: Colon Dermatologic History: Reports: None - Infectious Disease History Infectious Disease History: Reports: None - Past Surgical History HEENT Surgical History: Reports: Adenoidectomy, Tonsillectomy GI Surgical History: Reports: Cholecystectomy, Colon, Hernia Repair/Other Female Surgical History: Reports: Hysterectomy, Salpingo-Oophorectomy Endocrine Surgical History: Reports: None Musculoskeletal Surgical History: Reports: None Dermatological Surgical History: Reports: None Social & Family History - Family History Family Medical History: Noncontributory GI: Reports: None - Tobacco Use Smoking Status *Q: Never Smoker Second Hand Smoke Exposure: Yes - Caffeine Use Caffeine Use: Reports: None - Alcohol Use Days Per Week of Alcohol Use: 0 - Recreational Drug Use Recreational Drug Use: No ED ROS GENERAL - Review of Systems Review Of Systems: ROS reveals no pertinent complaints other than HPI. ED EXAM, GENERAL - Physical Exam Exam: See Below (See dictation) Course - Vital Signs Last Recorded V/S: Last Vital Signs Temp 36.6 C 05/02/17 20:00 Pulse 82 05/02/17 20:00 Resp 18 05/02/17 20:00 BP 142/78 H 05/02/17 20:00 Pulse Ox 99 05/02/17 20:00 - Orders/Labs/Meds Orders: Active Orders 24 hr Category Date Time Status Patient Status [ADT] Stat ADT 05/03/17 00:06 Ordered Cardiac Monitoring [RC] . DIRECTED Care 05/02/17 20:00 Active EKG Documentation Completion [RC] STAT Care 05/02/17 20:00 Active Oxygen Therapy, ED [RC] ASDIRECTED Care 05/02/17 20:00 Active Pulse Oximetry [RC] ASDIRECTED Care 05/02/17 20:00 Active Abdomen Pelvis w Cont [CT] Stat Exams 05/02/17 20:01 Taken Chest 2V [CR] Stat Exams 05/02/17 20:08 Taken CULTURE BLOOD [BC] Stat Lab 05/02/17 20:39 Received CULTURE BLOOD [BC] Stat Lab 05/02/17 20:46 Received CULTURE URINE [RM] Stat Lab 05/02/17 21:40 Received Sodium Chloride 0.9% [Normal Saline] 500 ml Med 05/02/17 20:15 Active IV STAT Sodium Chloride 0.9% [Saline Flush] Med 05/02/17 20:02 Active 10 ml FLUSH ASDIRECTED PRN Sodium Chloride 0.9% [Saline Flush] Med 05/02/17 20:02 Active 2.5 ml FLUSH ASDIRECTED PRN Blood Culture x2 Reflex Set [OM.PC] Stat Oth 05/02/17 20:27 Ordered Saline Lock Insert [OM.PC] Stat Oth 05/02/17 20:00 Ordered Medication Orders Sodium Chloride (Normal Saline) 500 mls @ 999 mls/hr IV STAT [facility] Last Admin: 05/02/17 20:18 Dose: 999 mls/hr Sodium Chloride (Saline Flush) 10 ml FLUSH ASDIRECTED PRN PRN Reason: Keep Vein Open Sodium Chloride (Saline Flush) 2.5 ml FLUSH ASDIRECTED PRN PRN Reason: Keep Vein Open Labs: Laboratory Tests 05/02/17 05/02/17 05/02/17 Range/Units 20:20 20:20 20:20 WBC 23.05 H (4.0-11.0) K/uL RBC 3.24 L (4.30-5.90) M/uL Hgb 10.4 L (12.0-16.0) g/dL Hct 30.5 L (36.0-46.0) % MCV 94.1 (80.0-98.0) fL MCH 32.1 H (27.0-32.0) pg MCHC 34.1 (31.0-37.0) g/dL RDW Std Deviation 63.6 H (28.0-62.0) fl RDW Coeff of Ej 19 H (11.0-15.0) % Plt Count 170 (150-400) K/uL MPV 10.50 (7.40-12.00) fL Add Manual Diff YES Neutrophils % (Manual) 90 H (48.0-80.0) % Band Neutrophils % 3 % Lymphocytes % (Manual) 5 L (16.0-40.0) % Monocytes % (Manual) 2 (0.0-15.0) % Nucleated RBC % 0.0 /100WBC Absolute Seg Neuts 20.7 Band Neutrophils # 0.7 Lymphocytes # (Manual) 1.2 Monocytes # (Manual) 0.5 Nucleated RBCs # 0 K/uL INR 0.98 (0.86-1.11) Lactate (0.20-2.00) mmol/L Sodium (136-146) mmol/L Potassium (3.5-5.1) mmol/L Chloride (98-110) mmol/L Carbon Dioxide (21-31) mmol/L BUN (6.0-23.0) mg/dL Creatinine (0.6-1.5) mg/dL Est Cr Clr Drug Dosing mL/min Estimated GFR (MDRD) ml/min Glucose (60-110) mg/dL Calcium (8.8-10.8) mg/dL Total Bilirubin (0.1-1.5) mg/dL AST (5-40) IU/L ALT (8-54) IU/L Alkaline Phosphatase (40-150) Troponin I (0.0-0.29) NG/ML B-Natriuretic Peptide 17 (<100) PG/ML Total Protein (6.0-8.0) g/dL Albumin (3.5-5.0) g/dL Globulin (2.0-3.5) g/dL Albumin/Globulin Ratio (1.3-2.8) Amylase (10-90) U/L Lipase (7-80) U/L Urine Color Urine Appearance Urine pH (5.0-8.0) Ur Specific [place] (1.001-1.035) Urine Protein (NEGATIVE) mg/dL Urine Glucose (UA) (NEGATIVE) mg/dL Urine Ketones (NEGATIVE) mg/dL Urine Occult Blood (NEGATIVE) Urine Nitrite (NEGATIVE) Urine Bilirubin (NEGATIVE) Urine Urobilinogen (<2.0) EU/dL Ur Leukocyte Esterase (NEGATIVE) Urine RBC (0-2/HPF) Urine WBC (0-5/HPF) Ur Epithelial Cells (NONE-FEW) Urine Bacteria (NEGATIVE) 05/02/17 05/02/17 05/02/17 Range/Units 20:20 20:20 20:20 WBC (4.0-11.0) K/uL RBC (4.30-5.90) M/uL Hgb (12.0-16.0) g/dL Hct (36.0-46.0) % MCV (80.0-98.0) fL MCH (27.0-32.0) pg MCHC (31.0-37.0) g/dL RDW Std Deviation (28.0-62.0) fl RDW Coeff of Ej (11.0-15.0) % Plt Count (150-400) K/uL MPV (7.40-12.00) fL Add Manual Diff Neutrophils % (Manual) (48.0-80.0) % Band Neutrophils % % Lymphocytes % (Manual) (16.0-40.0) % Monocytes % (Manual) (0.0-15.0) % Nucleated RBC % /100WBC Absolute Seg Neuts Band Neutrophils # Lymphocytes # (Manual) Monocytes # (Manual) Nucleated RBCs # K/uL INR (0.86-1.11) Lactate 5.1 H (0.20-2.00) mmol/L Sodium 135 L (136-146) mmol/L Potassium 4.7 (3.5-5.1) mmol/L Chloride 103 (98-110) mmol/L Carbon Dioxide 18 L (21-31) mmol/L BUN 38 H (6.0-23.0) mg/dL Creatinine 1.1 (0.6-1.5) mg/dL Est Cr Clr Drug Dosing 45.17 mL/min Estimated GFR (MDRD) 51.4 ml/min Glucose 376 H (60-110) mg/dL Calcium 9.4 (8.8-10.8) mg/dL Total Bilirubin 1.2 (0.1-1.5) mg/dL AST 36 (5-40) IU/L ALT 58 H (8-54) IU/L Alkaline Phosphatase 199 H (40-150) Troponin I < 0.10 (0.0-0.29) NG/ML B-Natriuretic Peptide (<100) PG/ML Total Protein 6.9 (6.0-8.0) g/dL Albumin 3.9 (3.5-5.0) g/dL Globulin 3.0 (2.0-3.5) g/dL Albumin/Globulin Ratio 1.3 (1.3-2.8) Amylase 57 (10-90) U/L Lipase 16 (7-80) U/L Urine Color Urine Appearance Urine pH (5.0-8.0) Ur Specific [place] (1.001-1.035) Urine Protein (NEGATIVE) mg/dL Urine Glucose (UA) (NEGATIVE) mg/dL Urine Ketones (NEGATIVE) mg/dL Urine Occult Blood (NEGATIVE) Urine Nitrite (NEGATIVE) Urine Bilirubin (NEGATIVE) Urine Urobilinogen (<2.0) EU/dL Ur Leukocyte Esterase (NEGATIVE) Urine RBC (0-2/HPF) Urine WBC (0-5/HPF) Ur Epithelial Cells (NONE-FEW) Urine Bacteria (NEGATIVE) 05/02/17 Range/Units 21:43 WBC (4.0-11.0) K/uL RBC (4.30-5.90) M/uL Hgb (12.0-16.0) g/dL Hct (36.0-46.0) % MCV (80.0-98.0) fL MCH (27.0-32.0) pg MCHC (31.0-37.0) g/dL RDW Std Deviation (28.0-62.0) fl RDW Coeff of Ej (11.0-15.0) % Plt Count (150-400) K/uL MPV (7.40-12.00) fL Add Manual Diff Neutrophils % (Manual) (48.0-80.0) % Band Neutrophils % % Lymphocytes % (Manual) (16.0-40.0) % Monocytes % (Manual) (0.0-15.0) % Nucleated RBC % /100WBC Absolute Seg Neuts Band Neutrophils # Lymphocytes # (Manual) Monocytes # (Manual) Nucleated RBCs # K/uL INR (0.86-1.11) Lactate (0.20-2.00) mmol/L Sodium (136-146) mmol/L Potassium (3.5-5.1) mmol/L Chloride (98-110) mmol/L Carbon Dioxide (21-31) mmol/L BUN (6.0-23.0) mg/dL Creatinine (0.6-1.5) mg/dL Est Cr Clr Drug Dosing mL/min Estimated GFR (MDRD) ml/min Glucose (60-110) mg/dL Calcium (8.8-10.8) mg/dL Total Bilirubin (0.1-1.5) mg/dL AST (5-40) IU/L ALT (8-54) IU/L Alkaline Phosphatase (40-150) Troponin I (0.0-0.29) NG/ML B-Natriuretic Peptide (<100) PG/ML Total Protein (6.0-8.0) g/dL Albumin (3.5-5.0) g/dL Globulin (2.0-3.5) g/dL Albumin/Globulin Ratio (1.3-2.8) Amylase (10-90) U/L Lipase (7-80) U/L Urine Color YELLOW Urine Appearance CLEAR Urine pH 7.0 (5.0-8.0) Ur Specific [place] 1.015 (1.001-1.035) Urine Protein TRACE (NEGATIVE) mg/dL Urine Glucose (UA) >=1000 (NEGATIVE) mg/dL Urine Ketones NEGATIVE (NEGATIVE) mg/dL Urine Occult Blood NEGATIVE (NEGATIVE) Urine Nitrite NEGATIVE (NEGATIVE) Urine Bilirubin NEGATIVE (NEGATIVE) Urine Urobilinogen 0.2 (<2.0) EU/dL Ur Leukocyte Esterase TRACE (NEGATIVE) Urine RBC 0-2 (0-2/HPF) Urine WBC 4-12 (0-5/HPF) Ur Epithelial Cells RARE (NONE-FEW) Urine Bacteria FEW (NEGATIVE) Meds: Medications Generic Name Dose Route Start Last Admin Trade Name Freq PRN Reason Stop Dose Admin Sodium Chloride 500 mls @ 999 mls/hr 05/02/17 20:15 05/02/17 20:18 Normal Saline IV 999 mls/hr STAT MARIA T Administration Sodium Chloride 10 ml 05/02/17 20:02 Saline Flush FLUSH ASDIRECTED PRN Keep Vein Open Sodium Chloride 2.5 ml 05/02/17 20:02 Saline Flush FLUSH ASDIRECTED PRN Keep Vein Open Discontinued Medications Generic Name Dose Route Start Last Admin Trade Name Freq PRN Reason Stop Dose Admin Piperacillin Sod/Tazobactam 50 mls @ 100 mls/hr 05/02/17 20:39 05/02/17 20:44 Sod 3.375 gm/ Sodium Chloride IV 05/02/17 21:08 100 mls/hr ONETIME ONE Administration Iopamidol 100 ml 05/02/17 20:47 05/02/17 22:25 Isovue Multipack-370 (76%) IVPUSH 05/02/17 20:48 75 ml ONETIME STA Administration Ondansetron HCl 4 mg 05/02/17 20:02 05/02/17 20:18 Zofran IVPUSH 05/02/17 20:03 4 mg ONETIME ONE Administration Departure - Departure Time of Disposition: 00:10 Disposition: Admitted As Inpatient 67 Condition: Good Clinical Impression: UTI, Urinary tract infectious disease, Dehydration Colon cancer Qualifiers: Colon location: unspecified part of colon Qualified Code(s): C18.9 - Malignant neoplasm of colon, unspecified - Discharge Information Forms: ED Department Discharge - My Orders Last 24 Hours: My Active Orders 05/02/17 20:00 Cardiac Monitoring [RC] . DIRECTED EKG Documentation Completion [RC] STAT Oxygen Therapy, ED [RC] ASDIRECTED Pulse Oximetry [RC] ASDIRECTED Saline Lock Insert [OM.PC] Stat 05/02/17 20:01 Abdomen Pelvis w Cont [CT] Stat 05/02/17 20:02 Sodium Chloride 0.9% [Saline Flush] 10 ml FLUSH ASDIRECTED PRN Sodium Chloride 0.9% [Saline Flush] 2.5 ml FLUSH ASDIRECTED PRN 05/02/17 20:08 Chest 2V [CR] Stat 05/02/17 20:15 Sodium Chloride 0.9% [Normal Saline] 500 ml IV STAT 05/02/17 20:27 Blood Culture x2 Reflex Set [OM.PC] Stat 05/02/17 20:39 CULTURE BLOOD [BC] Stat 05/02/17 20:46 CULTURE BLOOD [BC] Stat 05/02/17 21:40 CULTURE URINE [RM] Stat 05/03/17 00:06 Patient Status [ADT] Stat - Assessment/Plan Last 24 Hours: My Active Orders 05/02/17 20:00 Cardiac Monitoring [RC] . DIRECTED EKG Documentation Completion [RC] STAT Oxygen Therapy, ED [RC] ASDIRECTED Pulse Oximetry [RC] ASDIRECTED Saline Lock Insert [OM.PC] Stat 05/02/17 20:01 Abdomen Pelvis w Cont [CT] Stat 05/02/17 20:02 Sodium Chloride 0.9% [Saline Flush] 10 ml FLUSH ASDIRECTED PRN Sodium Chloride 0.9% [Saline Flush] 2.5 ml FLUSH ASDIRECTED PRN 05/02/17 20:08 Chest 2V [CR] Stat 05/02/17 20:15 Sodium Chloride 0.9% [Normal Saline] 500 ml IV STAT 05/02/17 20:27 Blood Culture x2 Reflex Set [OM.PC] Stat 05/02/17 20:39 CULTURE BLOOD [BC] Stat 05/02/17 20:46 CULTURE BLOOD [BC] Stat 05/02/17 21:40 CULTURE URINE [RM] Stat 05/03/17 00:06 Patient Status [ADT] Stat
[2017-05-02] MEDS ORDERED: Sodium Chloride 0.9% 500 ML IV SCH (20:15)
[2017-05-02] MEDS ORDERED: Piperacillin/Tazobactam 3.375 GM in Sodium Chloride 0.9% 50 ML IV ONE (20:39)
[2017-05-02] MEDS ORDERED: Iopamidol 755 MG/ML 500 ML Multipack Bottle IVPUSH STA (20:47)
[2017-05-03] MEDS: HYDROmorphone 1 MG/ML Syringe IVPUSH PRN ×3 (01:44→08:31)
[2017-05-03] MEDS: Promethazine 25 MG/ML SDV IM PRN (01:49)
[2017-05-03] MEDS: Sodium Chloride 0.9% 1,000 ML IV SCH ×3 (01:52→21:27)
[2017-05-03] MEDS: Piperacillin/Tazobactam 3.375 GM in Sodium Chloride 0.9% 50 ML IV SCH ×4 (02:36→21:29)
[2017-05-03 04:08] LABS: CHLORIDE,CL 107 mmol/L (98-110); SODIUM,NA 138 mmol/L (136-146)
[2017-05-03] MEDS: Diphenhydramine/Lidocaine/Nystatin Suspension 237 ML Bottle PO SCH ×4 (07:30→18:14)
[2017-05-03] MEDS: Insulin Aspart 100 Units/ML 3 ML Pen SUBCUT SCH ×3 (08:26→17:15)
--- NOTE | 2017-05-03 09:14 | PCM.HP ---
H&P History of Present Illness - General Date of Service: 05/03/17 Admit Problem/Dx: Admission Diagnosis/Problem Admission Diagnosis/Problem Urinary tract infection Source of Information: Patient History Limitations: Reports: No Limitations - History of Present Illness Initial Comments - Free Text/Narative: 57-year-old female with history of diabetes, hypertension, hypercholesterolemia and current diagnosis of metastatic colon cancer for which she is currently undergoing chemotherapy that was admitted with a urinary tract infection. Patient presented to the emergency room with chest/abdominal pain, shortness of breath, nausea, vomiting and was found to have a urinary tract infection. she presented with similar symptoms at the beginning of April of this year and again was found to have a urinary tract infection. She was admitted at that time and started on antibiotics and discharged on antibiotics which she completed. A chest CT was also done at that time which was negative. During that admission she also had a cardiac workup which was negative. The patient's most recent round of chemotherapy finished this past Wednesday. She administers her chemotherapy treatments at home on her own and does so every other week, through Wednesday. She was last seen by her oncologist last and was told that everything was fine. She is scheduled followup with her oncologist on May 13 for a chest/abdomen/pelvis CT. In addition to the patient's urinary tract infection, she also endorses a poor appetite, sore throat with swallowing and diffuse abdominal pain. She is voiding appropriately and denies any burning or itching with urination, diarrhea or blood in the stool or urine. Patient has been afebrile denies any rhinorrhea, numbness/ tingling/weakness in the upper and lower extremities bilaterally. ER course: Initial white blood cell count was 23,000, lactate 5.1, BUN 38, creatinine 1.1, random glucose 235, ALT of 199, ALT of 58. Initial troponin was negative. Lipase and amylase were unremarkable. UA showed few bacteria, white blood cell count of 4-12 and negative nitrates. Chest x-ray showed no acute processes but did show left deviation of the trachea secondary to enlargement of the right thyroid lobe which was seen on a prior CT exam. CT abdomen/pelvis showed new hypodense liver lesions and recommendation was made for outpatient liver MRI for further followup given the patient's primary metastatic colon cancer. Patient is also given IV fluids, Zofran and started on Zosyn while in the emergency room. Throat Pain Score (Numeric/FACES): 6 Abdomen Pain Score (Numeric/FACES): 6 chest Pain Score (Numeric/FACES): 6 - Related Data Allergies/Adverse Reactions: Allergies Allergy/AdvReac Type Severity Reaction Status Date / Time hydrocodone Allergy Unknown Hives Verified 04/07/17 22:35 ibuprofen Allergy Unknown Hives Verified 04/07/17 22:35 morphine Allergy Unknown Seizure Verified 04/07/17 22:35 nitroglycerin Allergy Unknown Difficulty Verified 04/07/17 22:35 Breathing caffeine Allergy Vomiting Verified 04/07/17 22:35 diphenhydramine HCl Allergy Excitabilit Verified 04/07/17 22:35 [From Benadryl] y Home Medications: Home Meds Diltiazem HCl [Diltiazem 24Hr ER] 360 mg PO BEDTIME 05/09/14 [History] Hydrochlorothiazide 12.5 mg PO DAILY 05/09/14 [History] atorvaSTATin Calcium [Atorvastatin Calcium] 20 mg PO BEDTIME 05/09/14 [History] metFORMIN [Glucophage] 1,000 mg PO BIDMEALS 05/09/14 [History] HYDROmorphone [Dilaudid] 2 mg PO Q6H PRN 10/27/15 [History] Loratadine 10 mg PO DAILY 10/27/15 [History] Prochlorperazine [Compazine] 10 mg PO QID PRN 10/27/15 [History] Valsartan 160 mg PO DAILY 10/27/15 [History] LORazepam [Ativan] 1 mg PO QID PRN 12/26/15 [History] Estrogens, Conjugated [Premarin Vaginal Crm] 1 applic VAG ASDIRECTED 04/07/17 [ History] Ondansetron [Zofran ODT] 4 mg PO Q4H PRN 04/08/17 [History] oxyCODONE HCl/Acetaminophen [oxyCODONE-Acetaminophen 5-325] 1 tab PO Q4H PRN 03/20 [History] Insulin Aspart [NovoLOG] 14 unit SUBCUT TIDAC pen 04/09/17 [Rx] Insulin Glarg,Human.Rec.Analog [LantUS Solostar] 50 units SUBCUT BEDTIME pen [Rx] Diphenhyd/Lidocaine/Nystatin [Magic Mouthwash] 30 ml PO QID 05/03/17 [History] Loperamide [Imodium] 2 mg PO ASDIRECTED 05/03/17 [History] Past Medical History Cardiovascular History: Reports: High Cholesterol, Hypertension Respiratory History: Reports: None Gastrointestinal History: Reports: GERD Other Gastrointestinal History: hernia, colon CA Genitourinary History: Reports: None CLINICAL ABSTRACTOR History: Reports: Musculoskeletal History: Reports: None Neurological History: Reports: None Psychiatric History: Reports: Anxiety, Depression Endocrine/Metabolic History: Reports: Diabetes, Type II Hematologic History: Reports: None Immunologic History: Reports: None Oncologic (Cancer) History: Reports: Colon, Liver, Metastatic Dermatologic History: Reports: None - Infectious Disease History Infectious Disease History: Reports: None - Past Surgical History HEENT Surgical History: Reports: Adenoidectomy, Tonsillectomy GI Surgical History: Reports: Cholecystectomy, Colon, Hernia Repair/Other Female Surgical History: Reports: Hysterectomy, Salpingo-Oophorectomy Endocrine Surgical History: Reports: None Musculoskeletal Surgical History: Reports: None Oncologic Surgical History: Reports: Other (See Below) Other Oncologic Surgeries/Procedures: presently on chemo treatment Dermatological Surgical History: Reports: None Social & Family History - Family History Family Medical History: Noncontributory GI: Reports: None - Tobacco Use Smoking Status *Q: Never Smoker Second Hand Smoke Exposure: No - Caffeine Use Caffeine Use: Reports: None - Alcohol Use Days Per Week of Alcohol Use: 0 - Recreational Drug Use Recreational Drug Use: No H&P Review of Systems - Review of Systems: Review Of Systems: See Below General: Reports: Weakness, Fatigue, Decreased Appetite HEENT: Reports: Sore Throat Pulmonary: Reports: Shortness of Breath Cardiovascular: Reports: Chest Pain Gastrointestinal: Reports: Abdominal Pain (Diffuse), Decreased Appetite, Difficulty Swallowing Genitourinary: Reports: No Symptoms Musculoskeletal: Reports: No Symptoms Skin: Reports: No Symptoms Psychiatric: Reports: No Symptoms Neurological: Reports: No Symptoms Hematologic/Lymphatic: Reports: No Symptoms Immunologic: Reports: No Symptoms Exam - Exam Exam: See Below - Vital Signs Vital Signs: Last Vital Signs Temp 97.5 F 05/03/17 08:00 Pulse 71 05/03/17 08:00 Resp 16 05/03/17 08:00 BP 163/79 H 05/03/17 08:00 Pulse Ox 99 07/31/17 08:00 Weight: 156 lb 15.506 oz - Exam Quality Assessment: DVT Prophylaxis (Sequential compression devices, Lovenox 40 mg daily) General: Alert, Oriented, Cooperative HEENT: Hearing Intact, Nares Patent, Other (Thrush evident on the palate and posterior oropharynx) Neck: Supple, Trachea Midline, 2 Lungs: Clear to Auscultation, Normal Respiratory Effort Cardiovascular: Regular Rate, Regular Rhythm GI/Abdominal Exam: Normal Bowel Sounds, Soft, No Organomegaly, No Distention, No Mass, Tender (Mild tenderness with palpation diffusely) Extremities: Normal Inspection, Normal Range of Motion, Non-Tender, No Pedal Edema, Normal Capillary Refill Peripheral Pulses: 2+: Radial (L), Radial (R), Posterior Tibial (L), Posterior Tibial (R) Skin: Warm, Dry, Intact Neuro Extensive - Mental Status: Alert, Oriented x3, Normal Mood/Affect, Normal Cognition Psychiatric: Alert, Normal Affect, Normal Mood - Patient Data Lab Results Last 24 hrs: Laboratory Results - last 24 hr 05/03/17 05/03/17 05/03/17 Range/Units 01:07 03:47 03:47 WBC 18.48 H (4.0-11.0) K/uL RBC 3.01 L (4.30-5.90) M/uL Hgb 9.6 L (12.0-16.0) g/dL Hct 28.7 L (36.0-46.0) % MCV 95.3 (80.0-98.0) fL MCH 31.9 (27.0-32.0) pg MCHC 33.4 (31.0-37.0) g/dL RDW Std Deviation 66.0 H (28.0-62.0) fl RDW Coeff of Ej 19 H (11.0-15.0) % Plt Count 119 L (150-400) K/uL MPV 11.20 (7.40-12.00) fL Add Manual Diff YES Neutrophils % (Manual) 78 (48.0-80.0) % Band Neutrophils % 6 % Lymphocytes % (Manual) 11 L (16.0-40.0) % Monocytes % (Manual) 2 (0.0-15.0) % Eosinophils % (Manual) 1 (0.0-7.0) % Metamyelocytes % 2 % Nucleated RBC % 0.0 /100WBC Absolute Seg Neuts 14.4 Band Neutrophils # 1.1 Lymphocytes # (Manual) 2.0 Monocytes # (Manual) 0.4 Eosinophils # (Manual) 0.2 Absolute Metamyelocyte 0.4 Nucleated RBCs # 0 K/uL Lactate (0.20-2.00) mmol/L Sodium 138 (136-146) mmol/L Potassium 4.4 (3.5-5.1) mmol/L Chloride 107 (98-110) mmol/L Carbon Dioxide 20 L (21-31) mmol/L BUN 28 H (6.0-23.0) mg/dL Creatinine 0.8 (0.6-1.5) mg/dL Est Cr Clr Drug Dosing 62.10 mL/min Estimated GFR (MDRD) > 60.0 ml/min Glucose 235 H (60-110) mg/dL POC Glucose 254 H (60-110) mg/dL Calcium 8.2 L (8.8-10.8) mg/dL 05/03/17 05/03/17 Range/Units 03:47 07:46 WBC (4.0-11.0) K/uL RBC (4.30-5.90) M/uL Hgb (12.0-16.0) g/dL Hct (36.0-46.0) % MCV (80.0-98.0) fL MCH (27.0-32.0) pg MCHC (31.0-37.0) g/dL RDW Std Deviation (28.0-62.0) fl RDW Coeff of Ej (11.0-15.0) % Plt Count (150-400) K/uL MPV (7.40-12.00) fL Add Manual Diff Neutrophils % (Manual) (48.0-80.0) % Band Neutrophils % % Lymphocytes % (Manual) (16.0-40.0) % Monocytes % (Manual) (0.0-15.0) % Eosinophils % (Manual) (0.0-7.0) % Metamyelocytes % % Nucleated RBC % /100WBC Absolute Seg Neuts Band Neutrophils # Lymphocytes # (Manual) Monocytes # (Manual) Eosinophils # (Manual) Absolute Metamyelocyte Nucleated RBCs # K/uL Lactate 3.5 H (0.20-2.00) mmol/L Sodium (136-146) mmol/L Potassium (3.5-5.1) mmol/L Chloride (98-110) mmol/L Carbon Dioxide (21-31) mmol/L BUN (6.0-23.0) mg/dL Creatinine (0.6-1.5) mg/dL Est Cr Clr Drug Dosing mL/min Estimated GFR (MDRD) ml/min Glucose (60-110) mg/dL POC Glucose 172 H (60-110) mg/dL Calcium (8.8-10.8) mg/dL Result Diagrams: 05/03/17 03:47 05/03/17 03:47 *Q Meaningful Use (ADM) - VTE *Q VTE Criteria *Q: - Stroke *Q Stroke Criteria *Q: - AMI *Q AMI Criteria *Q: - Problem List (1) Oral thrush SNOMED Code(s): 73263631 ICD Code: B37.0 - CANDIDAL STOMATITIS Status: Acute Current Visit: Yes (2) Colon cancer SNOMED Code(s): 719092870 ICD Code: C18.9 - MALIGNANT NEOPLASM OF COLON, UNSPECIFIED Status: Acute Current Visit: Yes Qualifiers: Colon location: unspecified part of colon Qualified Code(s): C18.9 - Malignant neoplasm of colon, unspecified (3) Dehydration SNOMED Code(s): 93051757 ICD Code: E86.0 - DEHYDRATION Status: Acute Current Visit: Yes (4) UTI, Urinary tract infectious disease SNOMED Code(s): 49628668 ICD Code: N39.0 - URINARY TRACT INFECTION, SITE NOT SPECIFIED Status: Acute Current Visit: Yes Onset Date: 12/02/14 Problem List Initiated/Reviewed/Updated: Yes Orders Last 24hrs: Active Orders 24 hr Category Date Time Status Accu Check [Blood Glucose Check, Bedside] [RC] TIDAC Care 05/03/17 01:22 Active Citizen Of [place] [employer] Diet [DIET] Diet 05/03/17 Breakfast Active LACTIC ACID,WHOLE BLOOD [BG] Q6H Lab 05/03/17 09:06 Received LACTIC ACID,WHOLE BLOOD [BG] Q6H Lab 05/03/17 15:37 Ordered LACTIC ACID,WHOLE BLOOD [BG] Q6H Lab 05/03/17 21:37 Ordered Acetaminophen/oxyCODONE [Percocet 325-5 MG] Med 05/03/17 01:22 Active 1 tab PO Q4H PRN Diphenhyd/Lidocaine/Nystatin [Magic Mouthwash] Med 05/03/17 06:00 Active 30 ml PO QID HYDROmorphone [Dilaudid] Med 05/03/17 01:22 Active 1 mg IVPUSH Q2H PRN Insulin Aspart [NovoLOG] Med 05/03/17 07:30 Active 14 unit SUBCUT TIDAC Insulin Glarg,Human.Rec.Analog [LantUS Solostar] Med 05/03/17 21:00 Active 50 units SUBCUT BEDTIME LORazepam [Ativan] Med 05/03/17 01:22 Active 1 mg PO Q6H PRN Ondansetron [Zofran] Med 05/03/17 01:22 Active 4 mg IVPUSH Q4H PRN Piperacillin/Tazobactam [Piperacil-Tazobact] 3.375 gm Med 05/03/17 03:00 Active Sodium Chloride 0.9% [Normal Saline] 50 ml IV Q6H Promethazine [Phenergan] Med 05/03/17 01:22 Active 25 mg IM Q6H PRN Sodium Chloride 0.9% [Normal Saline] 1,000 ml Med 05/03/17 01:30 Active IV ASDIRECTED atorvaSTATin [Lipitor] Med 05/03/17 21:00 Active 40 mg PO BEDTIME Medication Orders Atorvastatin Calcium (Lipitor) 40 mg PO BEDTIME MARIA T Diphenhydramine/Nystatin/Lidocaine (Magic Mouthwash) 30 ml PO QID MARIA T Last Admin: 05/03/17 07:40 Dose: Hydromorphone HCl (Dilaudid) 1 mg IVPUSH Q2H PRN PRN Reason: Pain Last Admin: 05/03/17 08:31 Dose: 1 mg Admin: 05/03/17 03:46 Dose: 1 mg Admin: 05/03/17 01:44 Dose: 1 mg Sodium Chloride (Normal Saline) 500 mls @ 999 mls/hr IV STAT MARIA T Last Admin: 05/02/17 20:18 Dose: 999 mls/hr Piperacillin Sod/Tazobactam (Sod 3.375 gm/ Sodium Chloride) 50 mls @ 100 mls/ hr IV Q6H MARIA T Last Admin: 05/03/17 08:30 Dose: 100 mls/hr Infusion: 05/03/17 03:06 Dose: 100 mls/hr Admin: 05/03/17 02:36 Dose: 100 mls/hr Sodium Chloride (Normal Saline) 1,000 mls @ 125 mls/hr IV ASDIRECTED [facility] Last Admin: 05/03/17 01:52 Dose: 125 mls/hr Insulin Aspart (Novolog) 14 unit SUBCUT TIDAC [facility] Last Admin: 05/03/17 08:26 Dose: Not Given Insulin Glargine (Lantus Solostar) 50 units SUBCUT BEDTIME [facility] Lorazepam (Ativan) 1 mg PO Q6H PRN PRN Reason: Anxiety Ondansetron HCl (Zofran) 4 mg IVPUSH Q4H PRN PRN Reason: Nausea/Vomiting Oxycodone/Acetaminophen (Percocet 325-5 Mg) 1 tab PO Q4H PRN PRN Reason: Pain Promethazine HCl (Phenergan) 25 mg IM Q6H PRN PRN Reason: Nausea/Vomiting Last Admin: 05/03/17 01:49 Dose: 25 mg Sodium Chloride (Saline Flush) 10 ml FLUSH ASDIRECTED PRN PRN Reason: Keep Vein Open Sodium Chloride (Saline Flush) 2.5 ml FLUSH ASDIRECTED PRN PRN Reason: Keep Vein Open Assessment/Plan Comment:: #1. Urinary tract infection: -UA showed a few bacteria, white blood cell count 4-12 and negative nitrates. -Continue Zosyn 3.375 g IV every 6 hours. -Urine cultures pending. -White blood cell count has improved to 18,500 #2. Oral thrush secondary to chemotherapy treatment: -Continue Magic mouthwash which has nystatin. -Chest discomfort could be secondary to esophageal candidiasis. Patient started on Diflucan 100 mg daily. Repeat troponin ordered. Initial troponin was negative. -Pain being controlled with oral Dilaudid 2 mg every 6 hours when necessary and Blaine one tab by mouth every 4 hours when necessary. Both of these are home medications for the patient. #3. Lactic acidosis: -Initial lactate was 5.1. Repeat is 3.8. Patient received a 1 L bolus and her lactate will continue to be checked every 6 hours until within normal limits. -Continue IV fluids at 125 cc/hour. -Blood and urine cultures are pending. #4. Metastatic colon cancer colon -CT abdomen/pelvis showed new hypodense liver lesions. Given the patient's current metastatic colon cancer, recommendation is made for outpatient liver MRI. ALP elevated at 199 and ALT elevated at 58. -Patient does have a abdomen/pelvis/chest CT scheduled for May [address] Hyde in [place]. Patient is slightly hypertensive but we are holding her antihypertensives at this time given that she was considered septic at the time of admission. She continues to be hypertensive tomorrow we will consider restarting her antihypertensives. Discharge: 2-4 days pending improvement.
[2017-05-03] MEDS ORDERED: Sodium Chloride 0.9% 1,000 ML IV ONE (10:25)
[2017-05-03] MEDS ORDERED: Enoxaparin 40 MG/0.4 ML Syringe SUBCUT SCH (10:45)
[2017-05-03] MEDS: Fluconazole 100 MG Tab PO SCH (10:50)
[2017-05-03] MEDS: HYDROmorphone 2 MG Tab PO PRN ×2 (12:04→21:49)
--- NOTE | 2017-05-03 14:35 | CR ---
EXAM DATE: 05/03/17 PATIENT'S AGE: 57 Patient: JOCELYNN SANTIAGO Facility: [place], [place] Site . Site : 1960 Study: XRay Chest [id number]/30/2017 10:24:36 PM Ordering Physician: Regan Lemon Final Report: INDICATION: Shortness of breath and chest pain TECHNIQUE: Chest radiograph 2 views COMPARISON: 04/07/2017, CT 04/08/2017 FINDINGS: Cardiovascular and mediastinum: The heart silhouette is normal in size and morphology. The mediastinum is normal in appearance. Left Port-A-Cath noted without interval change. Mild leftward deviation of the trachea is noted at the thoracic inlet without change. Lungs and pleural spaces: On the lateral exam, there is an oval nodule in the retrosternal clear space and measures 2.6 cm in diameter. This corresponds to the calcified granuloma seen on prior CT examination. No sign of pleural effusion seen. No pneumothorax is identified. Bones and soft tissues: No significant findings. IMPRESSION: 1. No acute cardiopulmonary disease is seen. 2. Mild leftward deviation of the trachea is noted at the thoracic inlet without change. This may be due to mild enlargement of the right thyroid lobe seen on prior CT. Dictated by Jarret Quinteros MD @ 05/02/2017 10:31:55 PM Dictated by: Jarret Quinteros MD @ 05/02/2017 22:32:18 (Electronic Signature) Report Signed by Proxy. MIRTA
--- NOTE | 2017-05-03 14:36 | CT ---
EXAM DATE: 05/03/17 PATIENT'S AGE: 57 Patient: JOCELYNN SANTIAGO Facility: [place], [place] Site . Site : 1960 Study: CT Abdomen/Pelvis [id number]/30/2017 10:35:23 PM Ordering Physician: Regan Lemon Final Report: INDICATION: Abdominal pain TECHNIQUE: CT abdomen and pelvis acquired with i.v. contrast. Coronal and sagittal reformats were obtained. COMPARISON: 04/08/2017, 03/10/2008 FINDINGS: Lower chest: Moderate coronary artery atherosclerotic calcifications are noted. Liver: Innumerable small calcified granulomas are seen within the liver. There is a hypodense lesion measuring 1.3 cm present within the inferior right lobe of the liver (segment 6). A hypodense lesion is seen in the liver dome measuring 1.2 cm on image 25. A 3rd smaller hypodense lesion is seen in the right anterior lobe of the liver on image 31. These were not visualized on prior examination. Spleen: Innumerable small calcified granulomas are seen within the spleen. Pancreas: Unremarkable. Gallbladder and bile ducts: The patient is status post cholecystectomy. Kidneys: Small cortical renal cysts are present bilaterally. No kidney or ureteral stones and no hydronephrosis seen. Adrenal glands: Unremarkable. GI tract: Unremarkable. The appendix is normal in appearance and size. Vascular: Unremarkable. Lymph nodes: Unremarkable. Miscellaneous: Unremarkable. No pneumoperitoneum is seen. No significant ascites is noted. Pelvic Organs: Unremarkable. The patient is status post hysterectomy. Bones: Unremarkable for age. IMPRESSION: 1. Several new hypodense liver lesions are noted. Assessment outpatient liver MRI is recommended, especially if the patient has a history of prior primary malignancy or chronic liver disease. Dictated by Jarret Quinteros MD @ 05/02/2017 11:03:00 PM Dictated by: Jarret Quinteros MD @ 05/02/2017 23:03:21 (Electronic Signature) Report Signed by Proxy. MIRTA
[2017-05-03] MEDS: atorvaSTATin 40 MG Tab PO SCH (21:29)
[2017-05-03] MEDS: Insulin Glargine,Human Rec. Analog 100 Units/ML 3 ML Pen SUBCUT SCH (21:48)
[2017-05-04] MEDS: Diphenhydramine/Lidocaine/Nystatin Suspension 237 ML Bottle PO SCH ×4 (00:30→18:02)
[2017-05-04] MEDS: Acetaminophen/oxyCODONE 325-5 MG Tab PO PRN (01:00)
[2017-05-04] MEDS: Piperacillin/Tazobactam 3.375 GM in Sodium Chloride 0.9% 50 ML IV SCH ×4 (03:11→21:04)
[2017-05-04 05:37] LABS: CHLORIDE,CL 105 mmol/L (98-110); SODIUM,NA 135 mmol/L (136-146)
[2017-05-04] MEDS: Sodium Chloride 0.9% 1,000 ML IV SCH (06:27)
[2017-05-04] MEDS: Insulin Aspart 100 Units/ML 3 ML Pen SUBCUT SCH ×3 (08:26→17:17)
[2017-05-04] MEDS: Fluconazole 100 MG Tab PO SCH (09:05)
[2017-05-04] MEDS: HYDROmorphone 2 MG Tab PO PRN ×2 (09:20→19:25)
[2017-05-04] MEDS ORDERED: Pantoprazole 40 MG in Sodium Chloride 0.9% 10 ML IVPUSH SCH (09:45)
[2017-05-04] MEDS: Pantoprazole 40 MG in Sodium Chloride 0.9% 10 ML IV SCH (09:53)
[2017-05-04] MEDS ORDERED: Loperamide 2 MG Cap PO PRN (10:30)
[2017-05-04] MEDS: Hydrochlorothiazide 12.5 MG Cap PO SCH (17:08)
--- NOTE | 2017-05-04 20:08 | PCM.PN ---
- General Info Date of Service: 05/04/17 Admission Dx/Problem (Free Text): Patient is still complaining of esophageal tenderness and pain secondary to most likely esophageal candidiasis. Patient is also complaining of fatigue and weakness but does not complaining of any febrile issues at the present moment. Patient is taking appropriate by mouth without any difficulty at the present moment no nausea or vomiting. Patient is not complaining of any constipation however she is reporting 2 episodes of diarrhea non-bloody non-melanosis in nature. Patient denies any headaches or shortness of breath. - Patient Data Vitals - Most Recent: Last Vital Signs Temp 35.6 C 05/04/17 16:00 Pulse 75 05/04/17 16:00 Resp 16 05/04/17 16:00 BP 155/94 H 05/04/17 16:00 Pulse Ox 100 05/04/17 16:00 Weight - Most Recent: 71.2 kg I&O - Last 24 Hours: Intake & Output 05/04/17 05/04/17 05/04/17 06:59 14:59 22:59 Intake Total 1580 460 420 Output Total 2850 1600 Balance -1270 460 -1180 Lab Results Last 24 Hours: Laboratory Results - last 24 hr 05/03/17 05/03/17 05/04/17 Range/Units 21:12 21:14 04:49 WBC 7.08 (4.0-11.0) K/uL RBC 2.68 L (4.30-5.90) M/uL Hgb 8.6 L (12.0-16.0) g/dL Hct 25.6 L (36.0-46.0) % MCV 95.5 (80.0-98.0) fL MCH 32.1 H (27.0-32.0) pg MCHC 33.6 (31.0-37.0) g/dL RDW Std Deviation 62.2 H (28.0-62.0) fl RDW Coeff of Ej 18 H (11.0-15.0) % Plt Count 72 L (150-400) K/uL MPV 10.20 (7.40-12.00) fL Add Manual Diff YES Neutrophils % (Manual) 40 L (48.0-80.0) % Band Neutrophils % 5 % Lymphocytes % (Manual) 49 H (16.0-40.0) % Monocytes % (Manual) 5 (0.0-15.0) % Eosinophils % (Manual) 1 (0.0-7.0) % Nucleated RBC % 0.0 /100WBC Absolute Seg Neuts 2.8 Band Neutrophils # 0.4 Lymphocytes # (Manual) 3.5 Monocytes # (Manual) 0.4 Eosinophils # (Manual) 0.1 Nucleated RBCs # 0 K/uL Lactate 1.8 (0.20-2.00) mmol/L Sodium (136-146) mmol/L Potassium (3.5-5.1) mmol/L Chloride (98-110) mmol/L Carbon Dioxide (21-31) mmol/L BUN (6.0-23.0) mg/dL Creatinine (0.6-1.5) mg/dL Est Cr Clr Drug Dosing mL/min Estimated GFR (MDRD) ml/min Glucose (60-110) mg/dL POC Glucose 140 H (60-110) mg/dL Calcium (8.8-10.8) mg/dL 05/04/17 05/04/17 05/04/17 Range/Units 04:49 06:10 06:39 WBC (4.0-11.0) K/uL RBC (4.30-5.90) M/uL Hgb (12.0-16.0) g/dL Hct (36.0-46.0) % MCV (80.0-98.0) fL MCH (27.0-32.0) pg MCHC (31.0-37.0) g/dL RDW Std Deviation (28.0-62.0) fl RDW Coeff of Ej (11.0-15.0) % Plt Count (150-400) K/uL MPV (7.40-12.00) fL Add Manual Diff Neutrophils % (Manual) (48.0-80.0) % Band Neutrophils % % Lymphocytes % (Manual) (16.0-40.0) % Monocytes % (Manual) (0.0-15.0) % Eosinophils % (Manual) (0.0-7.0) % Nucleated RBC % /100WBC Absolute Seg Neuts Band Neutrophils # Lymphocytes # (Manual) Monocytes # (Manual) Eosinophils # (Manual) Nucleated RBCs # K/uL Lactate (0.20-2.00) mmol/L Sodium 135 L (136-146) mmol/L Potassium 3.6 (3.5-5.1) mmol/L Chloride 105 (98-110) mmol/L Carbon Dioxide 23 (21-31) mmol/L BUN 14 (6.0-23.0) mg/dL Creatinine 0.6 (0.6-1.5) mg/dL Est Cr Clr Drug Dosing 82.80 mL/min Estimated GFR (MDRD) > 60.0 ml/min Glucose 95 (60-110) mg/dL POC Glucose 72 67 (60-110) mg/dL Calcium 7.6 L (8.8-10.8) mg/dL 05/04/17 05/04/17 Range/Units 07:15 11:38 WBC (4.0-11.0) K/uL RBC (4.30-5.90) M/uL Hgb (12.0-16.0) g/dL Hct (36.0-46.0) % MCV (80.0-98.0) fL MCH (27.0-32.0) pg MCHC (31.0-37.0) g/dL RDW Std Deviation (28.0-62.0) fl RDW Coeff of Ej (11.0-15.0) % Plt Count (150-400) K/uL MPV (7.40-12.00) fL Add Manual Diff Neutrophils % (Manual) (48.0-80.0) % Band Neutrophils % % Lymphocytes % (Manual) (16.0-40.0) % Monocytes % (Manual) (0.0-15.0) % Eosinophils % (Manual) (0.0-7.0) % Nucleated RBC % /100WBC Absolute Seg Neuts Band Neutrophils # Lymphocytes # (Manual) Monocytes # (Manual) Eosinophils # (Manual) Nucleated RBCs # K/uL Lactate (0.20-2.00) mmol/L Sodium (136-146) mmol/L Potassium (3.5-5.1) mmol/L Chloride (98-110) mmol/L Carbon Dioxide (21-31) mmol/L BUN (6.0-23.0) mg/dL Creatinine (0.6-1.5) mg/dL Est Cr Clr Drug Dosing mL/min Estimated GFR (MDRD) ml/min Glucose (60-110) mg/dL POC Glucose 114 H 98 (60-110) mg/dL Calcium (8.8-10.8) mg/dL Med Orders - Current: Current Medications Atorvastatin Calcium (Lipitor) 40 mg PO BEDTIME [facility] Last Admin: 05/03/17 21:29 Dose: 40 mg Diphenhydramine/Nystatin/Lidocaine (Magic Mouthwash) 30 ml PO QID [facility] Last Admin: 05/04/17 18:02 Dose: 30 ml Fluconazole (Diflucan) 100 mg PO DAILY [facility] Last Admin: 05/04/17 09:05 Dose: 100 mg Hydrochlorothiazide (Hydrochlorothiazide) 12.5 mg PO DAILY [facility] Last Admin: 05/04/17 17:08 Dose: 12.5 mg Hydromorphone HCl (Dilaudid) 2 mg PO Q6H PRN PRN Reason: Pain Last Admin: 05/04/17 19:25 Dose: 2 mg Sodium Chloride (Normal Saline) 500 mls @ 999 mls/hr IV STAT [facility] Last Admin: 05/02/17 20:18 Dose: 999 mls/hr Piperacillin Sod/Tazobactam (Sod 3.375 gm/ Sodium Chloride) 50 mls @ 100 mls/ hr IV Q6H [facility] Last Admin: 05/04/17 15:24 Dose: 100 mls/hr Pantoprazole Sodium 40 mg/ (Sodium Chloride) 10 mls @ 300 mls/hr IV Q24H [facility] Last Admin: 05/04/17 09:53 Dose: 300 mls/hr Insulin Aspart (Novolog) 14 unit SUBCUT TIDAC [facility] Last Admin: 05/04/17 17:17 Dose: Not Given Insulin Glargine (Lantus Solostar) 50 units SUBCUT BEDTIME [facility] Last Admin: 05/03/17 21:48 Dose: 50 units Loperamide HCl (Imodium) 2 mg PO ASDIRECTED PRN PRN Reason: Diarrhea Last Admin: 05/04/17 10:53 Dose: 2 mg Lorazepam (Ativan) 1 mg PO Q6H PRN PRN Reason: Anxiety Ondansetron HCl (Zofran) 4 mg IVPUSH Q4H PRN PRN Reason: Nausea/Vomiting Oxycodone/Acetaminophen (Percocet 325-5 Mg) 1 tab PO Q4H PRN PRN Reason: Pain Last Admin: 05/04/17 01:00 Dose: 1 tab Promethazine HCl (Phenergan) 25 mg IM Q6H PRN PRN Reason: Nausea/Vomiting Last Admin: 05/03/17 01:49 Dose: 25 mg Sodium Chloride (Saline Flush) 10 ml FLUSH ASDIRECTED PRN PRN Reason: Keep Vein Open Sodium Chloride (Saline Flush) 2.5 ml FLUSH ASDIRECTED PRN PRN Reason: Keep Vein Open Discontinued Medications Enoxaparin Sodium (Lovenox) 40 mg SUBCUT Q24H [facility] Last Admin: 05/03/17 10:51 Dose: 40 mg Hydromorphone HCl (Dilaudid) 1 mg IVPUSH Q2H PRN PRN Reason: Pain Last Admin: 05/03/17 08:31 Dose: 1 mg Piperacillin Sod/Tazobactam (Sod 3.375 gm/ Sodium Chloride) 50 mls @ 100 mls/ hr IV ONETIME ONE Stop: 05/02/17 21:08 Last Admin: 05/02/17 20:44 Dose: 100 mls/hr Sodium Chloride (Normal Saline) 1,000 mls @ 125 mls/hr IV ASDIRECTED [facility] Last Admin: 05/04/17 06:27 Dose: 125 mls/hr Sodium Chloride (Normal Saline) 1,000 mls @ 999 mls/hr IV .Bolus ONE Stop: 05/03/17 11:25 Last Admin: 05/03/17 10:26 Dose: 999 mls/hr Iopamidol (Isovue Multipack-370 (76%)) 100 ml IVPUSH ONETIME STA Stop: 05/02/17 20:48 Last Admin: 05/02/17 22:25 Dose: 75 ml Ondansetron HCl (Zofran) 4 mg IVPUSH ONETIME ONE Stop: 05/02/17 20:03 Last Admin: 05/02/17 20:18 Dose: 4 mg - Exam General: Alert, Oriented, Cooperative HEENT: Pupils Reactive Neck: Supple Lungs: Clear to Auscultation, Normal Respiratory Effort Cardiovascular: Regular Rate, Regular Rhythm GI/Abdominal Exam: Normal Bowel Sounds, Soft Extremities: Normal Inspection Skin: Warm - Problem List Review Problem List Initiated/Reviewed/Updated: Yes - My Orders Last 24 Hours: My Active Orders 05/04/17 16:30 Hydrochlorothiazide 12.5 mg PO DAILY - Assessment Assessment:: 1. Urinary analysis does show few bacteria and mild WBC; with her immunocompromise state due to chemotherapy patient likely does have a underlying UTI. Plan: We'll continue the patient on Zosyn 3.375 g IV every 6 hours cultures presently are pending. Although the UA doesn't necessarily point towards a full- blown UTI infection because of the patient's immunocompromise state we feel that it is important that she is treated for UTI as she does have an elevated lactate acid level along with an elevated WBC count. 2. Oral thrush secondary to immunocompromised state due to chemotherapy Plan: Continue nystatin mouthwash 3. Esophageal discomfort/midsternal discomfort likely secondary to esophageal candidiasis due to chemotherapy Plan: Continue the patient on Diflucan 100 mg #4. Lactic acidosis now resolving #5. Acute anemia and thrombocytopenia likely secondary to multifactorial including sepsis as well as recent chemotherapy Plan: We will get a CBC in the morning if the patient's hemoglobin is below 8 then we will plan to transfuse the patient. Continue to watch her thrombocytopenia we have discontinued the Lovenox although we do not believe that Lovenox has caused her thrombocytopenia however due to her dropping platelet count anticoagulation at this point in time should be stopped. #6. Metastatic colon cancer Plan: Outpatient MRI of liver warranted.
[2017-05-04] MEDS ORDERED: Diltiazem 180 MG Cap.CD PO SCH (21:00)
[2017-05-04] MEDS: atorvaSTATin 40 MG Tab PO SCH (21:01)
[2017-05-04] MEDS: Diltiazem 180 MG Cap.CD PO SCH (21:01)
[2017-05-04] MEDS: Insulin Glargine,Human Rec. Analog 100 Units/ML 3 ML Pen SUBCUT SCH (21:24)
[2017-05-05] MEDS: HYDROmorphone 2 MG Tab PO PRN ×2 (00:46→20:35)
[2017-05-05] MEDS: Diphenhydramine/Lidocaine/Nystatin Suspension 237 ML Bottle PO SCH ×4 (00:48→17:09)
[2017-05-05] MEDS: Ondansetron 4 MG/2 ML SDV IVPUSH PRN ×3 (00:51→12:54)
[2017-05-05] MEDS: Piperacillin/Tazobactam 3.375 GM in Sodium Chloride 0.9% 50 ML IV SCH ×2 (02:50→08:42)
[2017-05-05 06:27] LABS: CHLORIDE,CL 99 mmol/L (98-110); SODIUM,NA 134 mmol/L (136-146)
[2017-05-05] MEDS: Insulin Aspart 100 Units/ML 3 ML Pen SUBCUT SCH ×3 (06:41→16:40)
[2017-05-05] MEDS: Fluconazole 100 MG Tab PO SCH (08:41)
[2017-05-05] MEDS: Hydrochlorothiazide 12.5 MG Cap PO SCH (08:41)
[2017-05-05] MEDS: Pantoprazole 40 MG in Sodium Chloride 0.9% 10 ML IV SCH (09:43)
--- NOTE | 2017-05-05 11:46 | PCM.PN ---
- General Info Date of Service: 05/05/17 Admission Dx/Problem (Free Text): Mrs. Borden did fairly well overnight. She was complaining this morning nausea after breakfast. However after reassessing her during rounds she no longer was nauseous. She has not had any episodes of vomiting. She is not having any shortness of breath any esophageal/sternal pain. She is however still complaining of lower abdominal pain. She still is a little fatigued which is likely secondary to her anemia. No headaches no visual disturbances no dizziness nor any other systemic findings including febrile issues. - Review of Systems General: Reports: No Symptoms, Weakness, Fatigue HEENT: Reports: No Symptoms Pulmonary: Reports: No Symptoms Cardiovascular: Reports: No Symptoms Gastrointestinal: Reports: Abdominal Pain Genitourinary: Reports: No Symptoms Musculoskeletal: Reports: No Symptoms Skin: Reports: No Symptoms Neurological: Reports: No Symptoms Psychiatric: Reports: No Symptoms - Patient Data Vitals - Most Recent: Last Vital Signs Temp 35.7 C 05/05/17 08:00 Pulse 76 05/05/17 08:00 Resp 22 H 05/05/17 08:00 BP 131/79 05/05/17 08:00 Pulse Ox 99 05/05/17 08:00 Weight - Most Recent: 71.2 kg I&O - Last 24 Hours: Intake & Output 05/04/17 05/05/17 05/05/17 22:59 06:59 14:59 Intake Total 470 50 Output Total 1600 Balance -1130 50 Lab Results Last 24 Hours: Laboratory Results - last 24 hr 05/04/17 05/04/17 05/04/17 Range/Units 11:38 16:28 21:13 WBC (4.0-11.0) K/uL RBC (4.30-5.90) M/uL Hgb (12.0-16.0) g/dL Hct (36.0-46.0) % MCV (80.0-98.0) fL MCH (27.0-32.0) pg MCHC (31.0-37.0) g/dL RDW Std Deviation (28.0-62.0) fl RDW Coeff of Ej (11.0-15.0) % Plt Count (150-400) K/uL MPV (7.40-12.00) fL Add Manual Diff Neutrophils % (Manual) (48.0-80.0) % Band Neutrophils % % Lymphocytes % (Manual) (16.0-40.0) % Monocytes % (Manual) (0.0-15.0) % Nucleated RBC % /100WBC Absolute Seg Neuts Band Neutrophils # Lymphocytes # (Manual) Monocytes # (Manual) Nucleated RBCs # K/uL Sodium (136-146) mmol/L Potassium (3.5-5.1) mmol/L Chloride (98-110) mmol/L Carbon Dioxide (21-31) mmol/L BUN (6.0-23.0) mg/dL Creatinine (0.6-1.5) mg/dL Est Cr Clr Drug Dosing mL/min Estimated GFR (MDRD) ml/min Glucose (60-110) mg/dL POC Glucose 98 113 H 104 (60-110) mg/dL Calcium (8.8-10.8) mg/dL 05/05/17 05/05/17 05/05/17 Range/Units 05:42 05:42 06:08 WBC 3.88 L (4.0-11.0) K/uL RBC 2.93 L (4.30-5.90) M/uL Hgb 9.3 L (12.0-16.0) g/dL Hct 27.1 L (36.0-46.0) % MCV 92.5 (80.0-98.0) fL MCH 31.7 (27.0-32.0) pg MCHC 34.3 (31.0-37.0) g/dL RDW Std Deviation 59.2 (28.0-62.0) fl RDW Coeff of Ej 17 H (11.0-15.0) % Plt Count 58 L (150-400) K/uL MPV 9.60 (7.40-12.00) fL Add Manual Diff YES Neutrophils % (Manual) 26 L (48.0-80.0) % Band Neutrophils % 7 % Lymphocytes % (Manual) 66 H (16.0-40.0) % Monocytes % (Manual) 1 (0.0-15.0) % Nucleated RBC % 0.0 /100WBC Absolute Seg Neuts 1.0 Band Neutrophils # 0.3 Lymphocytes # (Manual) 2.6 Monocytes # (Manual) 0 Nucleated RBCs # 0 K/uL Sodium 134 L (136-146) mmol/L Potassium 4.4 (3.5-5.1) mmol/L Chloride 99 (98-110) mmol/L Carbon Dioxide 25 (21-31) mmol/L BUN 13 (6.0-23.0) mg/dL Creatinine 0.7 (0.6-1.5) mg/dL Est Cr Clr Drug Dosing 70.98 mL/min Estimated GFR (MDRD) > 60.0 ml/min Glucose 105 (60-110) mg/dL POC Glucose 106 (60-110) mg/dL Calcium 8.2 L (8.8-10.8) mg/dL Med Orders - Current: Current Medications Atorvastatin Calcium (Lipitor) 40 mg PO BEDTIME [facility] Last Admin: 05/04/17 21:01 Dose: 40 mg Diltiazem HCl (Cardizem Cd) 360 mg PO BEDTIME [facility] Last Admin: 05/04/17 21:01 Dose: 360 mg Diphenhydramine/Nystatin/Lidocaine (Magic Mouthwash) 30 ml PO QID [facility] Last Admin: 05/05/17 06:17 Dose: 30 ml Fluconazole (Diflucan) 100 mg PO DAILY [facility] Last Admin: 05/05/17 08:41 Dose: 100 mg Hydrochlorothiazide (Hydrochlorothiazide) 12.5 mg PO DAILY [facility] Last Admin: 05/05/17 08:41 Dose: 12.5 mg Hydromorphone HCl (Dilaudid) 2 mg PO Q6H PRN PRN Reason: Pain Last Admin: 05/05/17 00:46 Dose: 2 mg Sodium Chloride (Normal Saline) 500 mls @ 999 mls/hr IV STAT [facility] Last Admin: 05/02/17 20:18 Dose: 999 mls/hr Piperacillin Sod/Tazobactam (Sod 3.375 gm/ Sodium Chloride) 50 mls @ 100 mls/ hr IV Q6H [facility] Last Admin: 05/05/17 08:42 Dose: 100 mls/hr Pantoprazole Sodium 40 mg/ (Sodium Chloride) 10 mls @ 300 mls/hr IV Q24H [facility] Last Admin: 05/05/17 09:43 Dose: 300 mls/hr Insulin Aspart (Novolog) 14 unit SUBCUT TIDAC [facility] Last Admin: 05/05/17 06:41 Dose: Not Given Insulin Glargine (Lantus Solostar) 50 units SUBCUT BEDTIME [facility] Last Admin: 05/04/17 21:24 Dose: Not Given Loperamide HCl (Imodium) 2 mg PO ASDIRECTED PRN PRN Reason: Diarrhea Last Admin: 05/04/17 10:53 Dose: 2 mg Lorazepam (Ativan) 1 mg PO Q6H PRN PRN Reason: Anxiety Ondansetron HCl (Zofran) 4 mg IVPUSH Q4H PRN PRN Reason: Nausea/Vomiting Last Admin: 05/05/17 08:12 Dose: 4 mg Oxycodone/Acetaminophen (Percocet 325-5 Mg) 1 tab PO Q4H PRN PRN Reason: Pain Last Admin: 05/04/17 01:00 Dose: 1 tab Promethazine HCl (Phenergan) 25 mg IM Q6H PRN PRN Reason: Nausea/Vomiting Last Admin: 05/03/17 01:49 Dose: 25 mg Sodium Chloride (Saline Flush) 10 ml FLUSH ASDIRECTED PRN PRN Reason: Keep Vein Open Sodium Chloride (Saline Flush) 2.5 ml FLUSH ASDIRECTED PRN PRN Reason: Keep Vein Open Discontinued Medications Diltiazem HCl (Cardizem Cd) 50 mg PO BEDTIME [facility] Enoxaparin Sodium (Lovenox) 40 mg SUBCUT Q24H [facility] Last Admin: 05/03/17 10:51 Dose: 40 mg Hydromorphone HCl (Dilaudid) 1 mg IVPUSH Q2H PRN PRN Reason: Pain Last Admin: 05/03/17 08:31 Dose: 1 mg Piperacillin Sod/Tazobactam (Sod 3.375 gm/ Sodium Chloride) 50 mls @ 100 mls/ hr IV ONETIME ONE Stop: 05/02/17 21:08 Last Admin: 05/02/17 20:44 Dose: 100 mls/hr Sodium Chloride (Normal Saline) 1,000 mls @ 125 mls/hr IV ASDIRECTED [facility] Last Admin: 05/04/17 06:27 Dose: 125 mls/hr Sodium Chloride (Normal Saline) 1,000 mls @ 999 mls/hr IV .Bolus ONE Stop: 05/03/17 11:25 Last Admin: 05/03/17 10:26 Dose: 999 mls/hr Iopamidol (Isovue Multipack-370 (76%)) 100 ml IVPUSH ONETIME STA Stop: 05/02/17 20:48 Last Admin: 05/02/17 22:25 Dose: 75 ml Ondansetron HCl (Zofran) 4 mg IVPUSH ONETIME ONE Stop: 05/02/17 20:03 Last Admin: 05/02/17 20:18 Dose: 4 mg - Exam General: Alert, Oriented, Cooperative HEENT: Pupils Equal Neck: Supple, Trachea Midline Lungs: Clear to Auscultation, Normal Respiratory Effort Cardiovascular: Regular Rate, Regular Rhythm GI/Abdominal Exam: Other (right lower quadrant abdominal tenderness on palpation , no rebound tenderness. Patient does have appropriate bowel sounds all 4 quadrants no other tenderness noted. No hepatomegaly no splenomegaly appreciated.) Extremities: Normal Inspection, Normal Range of Motion, No Pedal Edema Skin: Warm, Dry Psy/Mental Status: Alert, Normal Affect - Problem List Review Problem List Initiated/Reviewed/Updated: Yes - My Orders Last 24 Hours: My Active Orders 05/04/17 16:30 Hydrochlorothiazide 12.5 mg PO DAILY 05/04/17 20:23 Communication Order [RC] DAILY 05/04/17 21:00 Diltiazem [Cardizem CD] 360 mg PO BEDTIME - Assessment Assessment:: 1. Urinary analysis does show few bacteria and mild WBC; with her immunocompromise state due to chemotherapy patient likely does have a underlying UTI. Plan: urine culture came back growing no organisms. However pacer on her immunocompromise state and her initial presentation we still do believe that the source of the infection is her UTI. But due to the patient's thrombocytopenia which Zosyn is known to cause we are going to switch her over to Rocephin. Rocephin does have a common reaction of thrombocytosis already also has a severe possible uncommon reaction of thrombocytopenia. As such we will just continue to monitor the platelet count to ensure that the patient does not have a further drop in her platelet count. If that is the case tomorrow then we will change her antibiotics and also consider other causes of thrombocytopenia. 2. Oral thrush secondary to immunocompromised state due to chemotherapy Plan: Continue nystatin mouthwash 3. Esophageal discomfort/midsternal discomfort likely secondary to esophageal candidiasis due to chemotherapy Plan: Continue the patient on Diflucan 100 mg #4. Lactic acidosis now resolving #5. Acute anemia and thrombocytopenia likely secondary to multifactorial including sepsis as well as recent chemotherapy Plan: due to anemia is now improving with the patient's hemoglobin coming up we will continue to watch the CBC to ensure that patient does not have a further compromise of her hemoglobin level. However her thrombocytopenia is continually dropping crit and platelet counts just below 55,000. At this point in time we are attributing her thrombocytopenia to her initial sepsis picture along with Zosyn which is commonly known to cause thrombocytopenia. We are switching the patient over to Rocephin which is less likely to cause thrombocytopenia however she does continue to have a low platelet count for further drop in her platelet count will switch her antibiotics and possibly IV Levaquin and also consider other causes of thrombocytopenia. #6. Acute abdominal pain right lower quadrant Plan: The acute lower abdominal pain is likely due to her metastatic disease however we will get a lipase and amylase just to ensure that were not missing a pancreatitis. A recent CT that was done did not show any pancreatic or other intra-abdominal related issues. #6. Metastatic colon cancer Plan: Outpatient MRI of liver warranted.
[2017-05-05] MEDS: cefTRIAXone 1 GM in Premix Bag 1 BAG IV SCH (12:51)
[2017-05-05] MEDS: LORazepam 1 MG Tab PO PRN (19:19)
[2017-05-05] MEDS: atorvaSTATin 40 MG Tab PO SCH (20:34)
[2017-05-05] MEDS: Diltiazem 180 MG Cap.CD PO SCH (20:34)
[2017-05-05] MEDS: Insulin Glargine,Human Rec. Analog 100 Units/ML 3 ML Pen SUBCUT SCH (21:52)
[2017-05-05] MEDS ORDERED: Insulin Glargine,Human Rec. Analog 100 Units/ML 3 ML Pen SUBCUT ONE (21:54)
[2017-05-06] MEDS: Diphenhydramine/Lidocaine/Nystatin Suspension 237 ML Bottle PO SCH ×4 (00:24→17:30)
[2017-05-06 06:08] LABS: CHLORIDE,CL 98 mmol/L (98-110); SODIUM,NA 131 mmol/L (136-146)
[2017-05-06] MEDS: Hydrochlorothiazide 12.5 MG Cap PO SCH (08:15)
[2017-05-06] MEDS: Insulin Aspart 100 Units/ML 3 ML Pen SUBCUT SCH ×3 (08:15→17:30)
[2017-05-06] MEDS: Fluconazole 100 MG Tab PO SCH (08:16)
[2017-05-06] MEDS: Ondansetron 4 MG/2 ML SDV IVPUSH PRN ×3 (09:29→20:13)
[2017-05-06] MEDS: Pantoprazole 40 MG in Sodium Chloride 0.9% 10 ML IV SCH (10:52)
[2017-05-06] MEDS ORDERED: Potassium Bicarbonate 25 MEQ Tab.EFF PO SCH (11:00)
[2017-05-06] MEDS: cefTRIAXone 1 GM in Premix Bag 1 BAG IV SCH (12:01)
[2017-05-06] MEDS ORDERED: Magnesium Sulfate/Water 2 GM in Premix Bag 1 BAG IV ONE (12:16)
[2017-05-06] MEDS: Promethazine 25 MG/ML SDV IM PRN (15:29)
--- NOTE | 2017-05-06 18:46 | PCM.PN ---
- General Info Date of Service: 05/06/17 Admission Dx/Problem (Free Text): Subjective: Leanne overall had a pretty decent night. She still is complaining of nausea but has not had any episodes of vomiting. She does have not have any headaches any diarrhea or constipation. Still complaining of mild abdominal pain but overall she is feeling better than previously. No febrile episodes. She still has a low thrombocytopenia count, anemia is improving but still slightly low, as well as an low potassium level. Functional Status: Reports: Pain Controlled - Patient Data Vitals - Most Recent: Last Vital Signs Temp 36.2 C 05/06/17 16:00 Pulse 78 05/06/17 16:00 Resp 16 05/06/17 16:00 BP 129/76 05/06/17 16:00 Pulse Ox 98 05/06/17 16:00 Weight - Most Recent: 71.2 kg I&O - Last 24 Hours: Intake & Output 05/06/17 05/06/17 05/06/17 06:59 14:59 22:59 Intake Total 250 418 Output Total 850 550 Balance -600 -132 Lab Results Last 24 Hours: Laboratory Results - last 24 hr 05/05/17 05/05/17 05/05/17 Range/Units 16:32 19:18 21:35 WBC (4.0-11.0) K/uL RBC (4.30-5.90) M/uL Hgb (12.0-16.0) g/dL Hct (36.0-46.0) % MCV (80.0-98.0) fL MCH (27.0-32.0) pg MCHC (31.0-37.0) g/dL RDW Std Deviation (28.0-62.0) fl RDW Coeff of Ej (11.0-15.0) % Plt Count (150-400) K/uL Add Manual Diff Neutrophils % (Manual) (48.0-80.0) % Band Neutrophils % % Lymphocytes % (Manual) (16.0-40.0) % Nucleated RBC % /100WBC Absolute Seg Neuts Band Neutrophils # Lymphocytes # (Manual) Nucleated RBCs # K/uL Sodium (136-146) mmol/L Potassium (3.5-5.1) mmol/L Chloride (98-110) mmol/L Carbon Dioxide (21-31) mmol/L BUN (6.0-23.0) mg/dL Creatinine (0.6-1.5) mg/dL Est Cr Clr Drug Dosing mL/min Estimated GFR (MDRD) ml/min Glucose (60-110) mg/dL POC Glucose 139 H 202 H 193 H (60-110) mg/dL Calcium (8.8-10.8) mg/dL Phosphorus (2.4-4.7) mg/dL Magnesium (1.5-2.3) mEq/L 05/06/17 05/06/17 05/06/17 Range/Units 05:36 05:36 05:36 WBC 4.02 (4.0-11.0) K/uL RBC 2.82 L (4.30-5.90) M/uL Hgb 9.0 L (12.0-16.0) g/dL Hct 25.6 L (36.0-46.0) % MCV 90.8 (80.0-98.0) fL MCH 31.9 (27.0-32.0) pg MCHC 35.2 (31.0-37.0) g/dL RDW Std Deviation 57.3 (28.0-62.0) fl RDW Coeff of Ej 17 H (11.0-15.0) % Plt Count 50 L (150-400) K/uL Add Manual Diff YES Neutrophils % (Manual) 10 L (48.0-80.0) % Band Neutrophils % 4 % Lymphocytes % (Manual) 86 H (16.0-40.0) % Nucleated RBC % 0.0 /100WBC Absolute Seg Neuts 0.4 Band Neutrophils # 0.2 Lymphocytes # (Manual) 3.5 Nucleated RBCs # 0 K/uL Sodium 131 L (136-146) mmol/L Potassium 3.1 L (3.5-5.1) mmol/L Chloride 98 (98-110) mmol/L Carbon Dioxide 21 (21-31) mmol/L BUN 14 (6.0-23.0) mg/dL Creatinine 0.8 (0.6-1.5) mg/dL Est Cr Clr Drug Dosing 62.10 mL/min Estimated GFR (MDRD) > 60.0 ml/min Glucose 147 H (60-110) mg/dL POC Glucose (60-110) mg/dL Calcium 8.2 L (8.8-10.8) mg/dL Phosphorus 3.8 (2.4-4.7) mg/dL Magnesium 1.4 L (1.5-2.3) mEq/L 05/06/17 05/06/17 05/06/17 Range/Units 06:30 11:05 16:16 WBC (4.0-11.0) K/uL RBC (4.30-5.90) M/uL Hgb (12.0-16.0) g/dL Hct (36.0-46.0) % MCV (80.0-98.0) fL MCH (27.0-32.0) pg MCHC (31.0-37.0) g/dL RDW Std Deviation (28.0-62.0) fl RDW Coeff of Ej (11.0-15.0) % Plt Count (150-400) K/uL Add Manual Diff Neutrophils % (Manual) (48.0-80.0) % Band Neutrophils % % Lymphocytes % (Manual) (16.0-40.0) % Nucleated RBC % /100WBC Absolute Seg Neuts Band Neutrophils # Lymphocytes # (Manual) Nucleated RBCs # K/uL Sodium (136-146) mmol/L Potassium (3.5-5.1) mmol/L Chloride (98-110) mmol/L Carbon Dioxide (21-31) mmol/L BUN (6.0-23.0) mg/dL Creatinine (0.6-1.5) mg/dL Est Cr Clr Drug Dosing mL/min Estimated GFR (MDRD) ml/min Glucose (60-110) mg/dL POC Glucose 156 H 204 H 170 H (60-110) mg/dL Calcium (8.8-10.8) mg/dL Phosphorus (2.4-4.7) mg/dL Magnesium (1.5-2.3) mEq/L Med Orders - Current: Current Medications Atorvastatin Calcium (Lipitor) 40 mg PO BEDTIME [facility] Last Admin: 05/05/17 20:34 Dose: 40 mg Diltiazem HCl (Cardizem Cd) 360 mg PO BEDTIME MARIA T Last Admin: 05/05/17 20:34 Dose: 360 mg Diphenhydramine/Nystatin/Lidocaine (Magic Mouthwash) 30 ml PO QID [facility] Last Admin: 05/06/17 17:30 Dose: 30 ml Fluconazole (Diflucan) 100 mg PO DAILY [facility] Last Admin: 05/06/17 08:16 Dose: 100 mg Hydrochlorothiazide (Hydrochlorothiazide) 12.5 mg PO DAILY [facility] Last Admin: 05/06/17 08:15 Dose: 12.5 mg Hydromorphone HCl (Dilaudid) 2 mg PO Q6H PRN PRN Reason: Pain Last Admin: 05/05/17 20:35 Dose: 2 mg Sodium Chloride (Normal Saline) 500 mls @ 999 mls/hr IV STAT [facility] Last Admin: 05/02/17 20:18 Dose: 999 mls/hr Pantoprazole Sodium 40 mg/ (Sodium Chloride) 10 mls @ 300 mls/hr IV Q24H [facility] Last Admin: 05/06/17 10:52 Dose: 300 mls/hr Ceftriaxone Sodium/Dextrose 1 (gm/ Premix) 50 mls @ 100 mls/hr IV Q24H [facility] Last Admin: 05/06/17 12:01 Dose: 100 mls/hr Insulin Aspart (Novolog) 14 unit SUBCUT TIDAC [facility] Last Admin: 05/06/17 17:30 Dose: 7 units Insulin Glargine (Lantus Solostar) 50 units SUBCUT BEDTIME [facility] Last Admin: 05/05/17 21:52 Dose: Not Given Loperamide HCl (Imodium) 2 mg PO ASDIRECTED PRN PRN Reason: Diarrhea Last Admin: 05/04/17 10:53 Dose: 2 mg Lorazepam (Ativan) 1 mg PO Q6H PRN PRN Reason: Anxiety Last Admin: 05/05/17 19:19 Dose: 1 mg Ondansetron HCl (Zofran) 4 mg IVPUSH Q4H PRN PRN Reason: Nausea/Vomiting Last Admin: 05/06/17 14:30 Dose: 4 mg Oxycodone/Acetaminophen (Percocet 325-5 Mg) 1 tab PO Q4H PRN PRN Reason: Pain Last Admin: 05/04/17 01:00 Dose: 1 tab Potassium Bicarbonate (Klor-Con Ef) 25 meq PO DAILY [facility] Last Admin: 05/06/17 12:00 Dose: 25 meq Promethazine HCl (Phenergan) 25 mg IM Q6H PRN PRN Reason: Nausea/Vomiting Last Admin: 05/06/17 15:29 Dose: 25 mg Sodium Chloride (Saline Flush) 10 ml FLUSH ASDIRECTED PRN PRN Reason: Keep Vein Open Sodium Chloride (Saline Flush) 2.5 ml FLUSH ASDIRECTED PRN PRN Reason: Keep Vein Open Discontinued Medications Diltiazem HCl (Cardizem Cd) 50 mg PO BEDTIME MARIA T Enoxaparin Sodium (Lovenox) 40 mg SUBCUT Q24H MARIA T Last Admin: 05/03/17 10:51 Dose: 40 mg Hydromorphone HCl (Dilaudid) 1 mg IVPUSH Q2H PRN PRN Reason: Pain Last Admin: 05/03/17 08:31 Dose: 1 mg Piperacillin Sod/Tazobactam (Sod 3.375 gm/ Sodium Chloride) 50 mls @ 100 mls/ hr IV ONETIME ONE Stop: 05/02/17 21:08 Last Admin: 05/02/17 20:44 Dose: 100 mls/hr Piperacillin Sod/Tazobactam (Sod 3.375 gm/ Sodium Chloride) 50 mls @ 100 mls/ hr IV Q6H [facility] Last Admin: 05/05/17 08:42 Dose: 100 mls/hr Sodium Chloride (Normal Saline) 1,000 mls @ 125 mls/hr IV ASDIRECTED [facility] Last Admin: 05/04/17 06:27 Dose: 125 mls/hr Sodium Chloride (Normal Saline) 1,000 mls @ 999 mls/hr IV .Bolus ONE Stop: 05/03/17 11:25 Last Admin: 05/03/17 10:26 Dose: 999 mls/hr Magnesium Sulfate 2 gm/ Premix 50 mls @ 25 mls/hr IV ONETIME ONE Stop: 05/06/17 14:15 Last Admin: 05/06/17 13:42 Dose: 25 mls/hr Insulin Glargine (Lantus Solostar) 10 units SUBCUT ONETIME ONE Stop: 05/06/17 21:55 Insulin Glargine (Lantus Solostar) 10 units SUBCUT ONETIME ONE Stop: 05/05/17 21:55 Last Admin: 05/05/17 22:00 Dose: 10 units Iopamidol (Isovue Multipack-370 (76%)) 100 ml IVPUSH ONETIME STA Stop: 05/02/17 20:48 Last Admin: 05/02/17 22:25 Dose: 75 ml Ondansetron HCl (Zofran) 4 mg IVPUSH ONETIME ONE Stop: 05/02/17 20:03 Last Admin: 05/02/17 20:18 Dose: 4 mg - Exam General: Alert, Oriented HEENT: Pupils Equal, Pupils Reactive Neck: Supple Lungs: Clear to Auscultation, Normal Respiratory Effort Cardiovascular: Regular Rate, Regular Rhythm GI/Abdominal Exam: Normal Bowel Sounds, Soft Extremities: Normal Inspection Skin: Warm, Dry - Problem List Review Problem List Initiated/Reviewed/Updated: Yes - My Orders Last 24 Hours: My Active Orders 05/06/17 11:00 Potassium Bicarbonate [Klor-Con EF] 25 meq PO DAILY 05/07/17 05:01 MAGNESIUM [CHEM] Routine - Assessment Assessment:: 1. Urinary analysis does show few bacteria and mild WBC; with her immunocompromise state due to chemotherapy patient likely does have a underlying UTI. Plan: urine culture came back growing no organisms. However, based on her immunocompromise state and her initial presentation we still do believe that the source of the infection is her UTI. But due to the patient's thrombocytopenia which Zosyn is known to cause we are going to switch her over to Rocephin. We have decided to still keep the patient on Rocephin as even though her thrombocytopenia is getting slightly worse we do believe this is just residual from the Zosyn. 2. Oral thrush secondary to immunocompromised state due to chemotherapy Plan: Continue nystatin mouthwash 3. Esophageal discomfort/midsternal discomfort likely secondary to esophageal candidiasis due to chemotherapy Plan: Continue the patient on Diflucan 100 mg #4. Lactic acidosis now resolving #5. Acute anemia and thrombocytopenia likely secondary to multifactorial including sepsis as well as recent chemotherapy Plan: due to anemia is now improving with the patient's hemoglobin coming up we will continue to watch the CBC to ensure that patient does not have a further compromise of her hemoglobin level. However her thrombocytopenia is continually dropping crit and platelet counts just below 55,000. At this point in time we are attributing her thrombocytopenia to her initial sepsis picture along with Zosyn which is commonly known to cause thrombocytopenia. We are switching the patient over to Rocephin which is less likely to cause thrombocytopenia however she does continue to have a low platelet count for further drop in her platelet count will switch her antibiotics and possibly IV Levaquin and also consider other causes of thrombocytopenia. #6. Acute abdominal pain right lower quadrant Plan: The acute lower abdominal pain is likely due to her metastatic disease however we will get a lipase and amylase just to ensure that were not missing a pancreatitis. A recent CT that was done did not show any pancreatic or other intra-abdominal related issues. #6. Metastatic colon cancer Plan: Outpatient MRI of liver warranted. - Plan Plan:: #1. Urinary tract infection: -UA showed a few bacteria, white blood cell count 4-12 and negative nitrates. -Continue Zosyn 3.375 g IV every 6 hours. -Urine cultures pending. -White blood cell count has improved to 18,500 #2. Oral thrush secondary to chemotherapy treatment: -Continue Magic mouthwash which has nystatin. -Chest discomfort could be secondary to esophageal candidiasis. Patient started on Diflucan 100 mg daily. Repeat troponin ordered. Initial troponin was negative. -Pain being controlled with oral Dilaudid 2 mg every 6 hours when necessary and [place] one tab by mouth every 4 hours when necessary. Both of these are home medications for the patient. #3. Lactic acidosis: -Initial lactate was 5.1. Repeat is 3.8. Patient received a 1 L bolus and her lactate will continue to be checked every 6 hours until within normal limits. -Continue IV fluids at 125 cc/hour. -Blood and urine cultures are pending. #4. Metastatic colon cancer colon -CT abdomen/pelvis showed new hypodense liver lesions. Given the patient's current metastatic colon cancer, recommendation is made for outpatient liver MRI. ALP elevated at 199 and ALT elevated at 58. -Patient does have a abdomen/pelvis/chest CT scheduled for May [address] Hyde in [place]. Patient is slightly hypertensive but we are holding her antihypertensives at this time given that she was considered septic at the time of admission. She continues to be hypertensive tomorrow we will consider restarting her antihypertensives. Discharge: 2-4 days pending improvement.
[2017-05-06] MEDS: Acetaminophen/oxyCODONE 325-5 MG Tab PO PRN (20:07)
[2017-05-06] MEDS: LORazepam 1 MG Tab PO PRN (20:08)
[2017-05-06] MEDS: atorvaSTATin 40 MG Tab PO SCH (20:11)
[2017-05-06] MEDS: Diltiazem 180 MG Cap.CD PO SCH (20:11)
[2017-05-06] MEDS ORDERED: Insulin Glargine,Human Rec. Analog 100 Units/ML 3 ML Pen SUBCUT ONE ×2 (21:00→21:54)
[2017-05-06] MEDS: Insulin Glargine,Human Rec. Analog 100 Units/ML 3 ML Pen SUBCUT SCH (21:49)
[2017-05-07] MEDS: Diphenhydramine/Lidocaine/Nystatin Suspension 237 ML Bottle PO SCH ×3 (00:03→12:59)
[2017-05-07] MEDS: Acetaminophen/oxyCODONE 325-5 MG Tab PO PRN (04:22)
[2017-05-07] MEDS: Ondansetron 4 MG/2 ML SDV IVPUSH PRN (04:22)
[2017-05-07] MEDS: LORazepam 1 MG Tab PO PRN (04:22)
[2017-05-07 05:54] LABS: CHLORIDE,CL 101 mmol/L (98-110); SODIUM,NA 134 mmol/L (136-146)
[2017-05-07] MEDS: Insulin Aspart 100 Units/ML 3 ML Pen SUBCUT SCH ×2 (07:25→11:52)
[2017-05-07] MEDS: Fluconazole 100 MG Tab PO SCH (08:19)
[2017-05-07] MEDS: Hydrochlorothiazide 12.5 MG Cap PO SCH (08:20)
[2017-05-07] MEDS ORDERED: Potassium Chloride 20 MEQ Tab.ER PO SCH ×2 (09:00)
[2017-05-07] MEDS: Pantoprazole 40 MG in Sodium Chloride 0.9% 10 ML IV SCH (10:56)
[2017-05-07 11:52] VITALS: BP 135/79
[2017-05-07] MEDS: cefTRIAXone 1 GM in Premix Bag 1 BAG IV SCH (12:59)
--- NOTE | 2017-05-10 23:06 | PCM.DCSUM1 ---
<Chandra Metzger Z - Last Filed: 05/10/17 22:47> Discharge Summary - Hospital Course Free Text/Narrative:: Discharge summary: Date of admission: 05/03/2017 Date of discharge: 05/07/2017 Admitting diagnoses: #1 urinary tract infection #2 oral thrush secondary to chemotherapy due to metastatic carcinoma #3 elevated lactate acid secondary to sepsis #4. Immunocompromised patient with pancytopenia aside from leukocytosis secondary to infection #5. Metastatic colon cancer Discharge diagnoses: #1 urinary tract infection causing sepsis now resolving #2. Oral thrush secondary to chemotherapy due to metastatic carcinoma #3 candidiasis esophagitis secondary to chemotherapy and immunocompromisation #4 anemia and thrombocytopenia secondary to multifactorial including chemotherapy, sepsis, antibiotic in particular Zosyn use for sepsis treatment #5 metastatic colon cancer with possible immune metastases requiring outpatient evaluation Consultations: None Procedures: None Hospitalization course: Patient was admitted on 05/03/2017 to the general floor secondary to elevated lactate acid level of about 5 and a urinary analysis showing possible UTI. Patient had elevated WBC of about 15 along with tachycardia and tachypnea. Patient was hemodynamically unstable patient was determined to be immunocompromised secondary to her metastatic carcinoma diagnosis and chemotherapy patient was admitted and started on IV Zosyn and was monitored. Patient was also noted to have thrush and was started on nystatin inpatient. By date of admission patient was also complaining of upper chest pain which she localized to the sternal and esophageal area it was determined that likely the patient had esophagitis candidiasis secondary to chemotherapy and immunocompromisation and patient was then started on Diflucan 100 mg. The course of the next 2 days the patient's leukocytosis began to improve and the patient's sternal/esophageal chest pain began to resolve. However during this time patient started to develop nausea which typically does not happen to the patient. Also was noted that the patient started to develop thrombocytopenia along with anemia. After speaking with the patient's field sales executive Dr. Hyde in [place]. It was determined that the likelihood of the patient's anemia and thrombocytopenia was multifactorial with chemotherapy but primarily related to his sepsis and slightly related to antibiotic usage of Zosyn which is known to cause pancytopenia. The patient was then switched from Zosyn to Rocephin. Patient's anemia did stabilize her not requiring blood transfusions. Her thrombocytopenia got as low as 50,000. However because of this and does residually stay in the system for 24 hours to 48 hours extremely worried in regards to worsening of her thrombocytopenia and by the day of discharge the patient's thrombus ED had significantly improved. The patient was no longer nauseous. An stable enough to go home on oral Diflucan and nystatin cefdinir for antibiotic coverage of his sepsis and continuation of the rest of her home medications. The patient is to follow-up with her primary care physician and Dr. Hyde her field sales executive in 1 week's time. Disposition on discharge: Home Condition on discharge: Patient was afebrile non-tachycardic not tachypneic with stable blood pressures, patient was able to tolerate by mouth without any vomiting, patient did not have any diarrhea or constipation issues. And was ambulating appropriately. Follow-up instructions: Patient is to follow-up with her primary care physician, as well as her field sales executive Dr. Hyde. Medications on discharge: Patient was continued on her Diflucan 100 mg per presumed candidiasis esophagitis, nystatin for thrush, cefdinir for her infection, and continuation of the rest of her home medications. Discharge instructions: Patient was told that if she had any fevers, chills, excessive nausea and vomiting, worsening Her symptoms she is to either see her primary care physician immediately or come to the ER. - Discharge Data Discharge Date: 05/07/17 Discharge Disposition: Home, Self-Care 01 Condition: Good - Discharge Diagnosis/Problem(s) (1) Thrombocytopenia SNOMED Code(s): 655336164 ICD Code: D69.6 - THROMBOCYTOPENIA, UNSPECIFIED Status: Acute Priority: High (2) Colon cancer SNOMED Code(s): 216316945 ICD Code: C18.9 - MALIGNANT NEOPLASM OF COLON, UNSPECIFIED Status: Acute Priority: High QualifierTitle: Colon location: unspecified part of colon Qualified Code( s): C18.9 - Malignant neoplasm of colon, unspecified (3) Oral thrush SNOMED Code(s): 00501961 ICD Code: B37.0 - CANDIDAL STOMATITIS Status: Acute Priority: High (4) UTI, Urinary tract infectious disease SNOMED Code(s): 40653523 ICD Code: N39.0 - URINARY TRACT INFECTION, SITE NOT SPECIFIED Status: Acute Priority: High Onset Date: 12/02/14 - Patient Instructions Diet: Usual Diet as Tolerated Activity: As Tolerated Driving: Do Not Drive Showering/Bathing: May Shower Notify Provider of: Fever, Increased Pain, Swelling and Redness, Nausea and/or Vomiting - Discharge Plan Prescriptions/Med Rec: Ondansetron [Zofran ODT] 4 mg PO Q4H PRN #14 tab.dis PRN Reason: Nausea/Vomiting Home Medications: Home Meds Diltiazem HCl [Diltiazem 24Hr ER] 360 mg PO BEDTIME 05/09/14 [History] Hydrochlorothiazide 12.5 mg PO DAILY 05/09/14 [History] atorvaSTATin Calcium [Atorvastatin Calcium] 20 mg PO BEDTIME 05/09/14 [History] metFORMIN [Glucophage] 1,000 mg PO BIDMEALS 05/09/14 [History] HYDROmorphone [Dilaudid] 1 - 2 tab PO Q4H PRN 10/27/15 [History] Loratadine 10 mg PO DAILY 10/27/15 [History] Valsartan 160 mg PO DAILY 10/27/15 [History] LORazepam [Ativan] 1 mg PO QID PRN 12/26/15 [History] Insulin Aspart [NovoLOG] 14 unit SUBCUT TIDAC pen 04/09/17 [Rx] Ondansetron [Zofran ODT] 4 mg PO Q4H PRN #14 tab.dis 05/07/17 [Rx] Insulin Glarg,Human.Rec.Analog [LantUS Solostar] 28 units SUBCUT BEDTIME [History] Pantoprazole [ProTONIX] 40 mg PO BID 08/06/17 [History] Phenylephrine HCl/[place] Butter [Preparation H Suppository] 1 supp RC QID PRN # 30 supp.rect 08/09/17 [Rx] Polyethylene Glycol 3350 [MiraLAX] 17 gm PO DAILY PRN #30 packet 08/09/17 [Rx] Patient Handouts: Cefdinir capsules, Ondansetron oral dissolving tablet, Urinary Tract Infection, Adult, [id number], Dehydration, Elderly, Fluconazole tablets, Pantoprazole tablets, Potassium phosphate; Sodium Phosphate oral tablet Referrals: [facility] [Outside] Iesha Dangelo NP [Ordering Only Provider] - 05/11/17 9:30 am - Discharge Summary/Plan Comment DC Time >30 min.: No - Patient Data Vitals - Most Recent: Last Vital Signs Temp 36.0 C 05/07/17 11:52 Pulse 80 05/07/17 11:52 Resp 20 05/07/17 11:52 BP 135/79 05/07/17 11:52 Pulse Ox 98 05/07/17 11:52 Weight - Most Recent: 71.2 kg Med Orders - Current: Current Medications Discontinued Medications Atorvastatin Calcium (Lipitor) 40 mg PO BEDTIME [facility] Last Admin: 05/06/17 20:11 Dose: 40 mg Diltiazem HCl (Cardizem Cd) 50 mg PO BEDTIME [facility] Diltiazem HCl (Cardizem Cd) 360 mg PO BEDTIME [facility] Last Admin: 05/06/17 20:11 Dose: 360 mg Diphenhydramine/Nystatin/Lidocaine (Magic Mouthwash) 30 ml PO QID [facility] Last Admin: 05/07/17 12:59 Dose: Not Given Enoxaparin Sodium (Lovenox) 40 mg SUBCUT Q24H [facility] Last Admin: 05/03/17 10:51 Dose: 40 mg Fluconazole (Diflucan) 100 mg PO DAILY [facility] Last Admin: 05/07/17 08:19 Dose: 100 mg Hydrochlorothiazide (Hydrochlorothiazide) 12.5 mg PO DAILY [facility] Last Admin: 05/07/17 08:20 Dose: 12.5 mg Hydromorphone HCl (Dilaudid) 1 mg IVPUSH Q2H PRN PRN Reason: Pain Last Admin: 05/03/17 08:31 Dose: 1 mg Hydromorphone HCl (Dilaudid) 2 mg PO Q6H PRN PRN Reason: Pain Last Admin: 05/05/17 20:35 Dose: 2 mg Sodium Chloride (Normal Saline) 500 mls @ 999 mls/hr IV STAT [facility] Last Admin: 05/02/17 20:18 Dose: 999 mls/hr Piperacillin Sod/Tazobactam (Sod 3.375 gm/ Sodium Chloride) 50 mls @ 100 mls/ hr IV ONETIME ONE Stop: 05/02/17 21:08 Last Admin: 05/02/17 20:44 Dose: 100 mls/hr Piperacillin Sod/Tazobactam (Sod 3.375 gm/ Sodium Chloride) 50 mls @ 100 mls/ hr IV Q6H [facility] Last Admin: 05/05/17 08:42 Dose: 100 mls/hr Sodium Chloride (Normal Saline) 1,000 mls @ 125 mls/hr IV ASDIRECTED [facility] Last Admin: 05/04/17 06:27 Dose: 125 mls/hr Sodium Chloride (Normal Saline) 1,000 mls @ 999 mls/hr IV .Bolus ONE Stop: 05/03/17 11:25 Last Admin: 05/03/17 10:26 Dose: 999 mls/hr Pantoprazole Sodium 40 mg/ (Sodium Chloride) 10 mls @ 300 mls/hr IV Q24H [facility] Last Admin: 05/07/17 10:56 Dose: 300 mls/hr Ceftriaxone Sodium/Dextrose 1 (gm/ Premix) 50 mls @ 100 mls/hr IV Q24H [facility] Last Admin: 05/07/17 12:59 Dose: Not Given Magnesium Sulfate 2 gm/ Premix 50 mls @ 25 mls/hr IV ONETIME ONE Stop: 05/06/17 14:15 Last Admin: 05/06/17 13:42 Dose: 25 mls/hr Insulin Aspart (Novolog) 14 unit SUBCUT TIDAC [facility] Last Admin: 05/07/17 11:52 Dose: Not Given Insulin Glargine (Lantus Solostar) 50 units SUBCUT BEDTIME [facility] Last Admin: 05/06/17 21:49 Dose: Not Given Insulin Glargine (Lantus Solostar) 10 units SUBCUT ONETIME ONE Stop: 05/06/17 21:55 Insulin Glargine (Lantus Solostar) 10 units SUBCUT ONETIME ONE Stop: 05/05/17 21:55 Last Admin: 05/05/17 22:00 Dose: 10 units Insulin Glargine (Lantus Solostar) 10 units SUBCUT ONETIME ONE Stop: 05/06/17 21:01 Last Admin: 05/06/17 21:45 Dose: 10 units Iopamidol (Isovue Multipack-370 (76%)) 100 ml IVPUSH ONETIME STA Stop: 05/02/17 20:48 Last Admin: 05/02/17 22:25 Dose: 75 ml Loperamide HCl (Imodium) 2 mg PO ASDIRECTED PRN PRN Reason: Diarrhea Last Admin: 05/04/17 10:53 Dose: 2 mg Lorazepam (Ativan) 1 mg PO Q6H PRN PRN Reason: Anxiety Last Admin: 05/07/17 04:22 Dose: 1 mg Ondansetron HCl (Zofran) 4 mg IVPUSH ONETIME ONE Stop: 05/02/17 20:03 Last Admin: 05/02/17 20:18 Dose: 4 mg Ondansetron HCl (Zofran) 4 mg IVPUSH Q4H PRN PRN Reason: Nausea/Vomiting Last Admin: 05/07/17 04:22 Dose: 4 mg Oxycodone/Acetaminophen (Percocet 325-5 Mg) 1 tab PO Q4H PRN PRN Reason: Pain Last Admin: 05/07/17 04:22 Dose: 1 tab Potassium Bicarbonate (Klor-Con Ef) 25 meq PO DAILY [facility] Last Admin: 05/06/17 12:00 Dose: 25 meq Potassium Chloride (Klor-Con M20) 20 meq PO DAILY [facility] Potassium Chloride (Klor-Con M20) 40 meq PO DAILY [facility] Last Admin: 05/07/17 08:20 Dose: 40 meq Promethazine HCl (Phenergan) 25 mg IM Q6H PRN PRN Reason: Nausea/Vomiting Last Admin: 05/06/17 15:29 Dose: 25 mg Sodium Chloride (Saline Flush) 10 ml FLUSH ASDIRECTED PRN PRN Reason: Keep Vein Open Sodium Chloride (Saline Flush) 2.5 ml FLUSH ASDIRECTED PRN PRN Reason: Keep Vein Open <Tyson Silverio - Last Filed: 05/12/17 07:59> - Patient Data Vitals - Most Recent: Last Vital Signs Temp 36.0 C 05/07/17 11:52 Pulse 80 05/07/17 11:52 Resp 20 05/07/17 11:52 BP 135/79 05/07/17 11:52 Pulse Ox 98 05/07/17 11:52 Med Orders - Current: Current Medications Discontinued Medications Atorvastatin Calcium (Lipitor) 40 mg PO BEDTIME [facility] Last Admin: 05/06/17 20:11 Dose: 40 mg Diltiazem HCl (Cardizem Cd) 50 mg PO BEDTIME [facility] Diltiazem HCl (Cardizem Cd) 360 mg PO BEDTIME [facility] Last Admin: 05/06/17 20:11 Dose: 360 mg Diphenhydramine/Nystatin/Lidocaine (Magic Mouthwash) 30 ml PO QID [facility] Last Admin: 05/07/17 12:59 Dose: Not Given Enoxaparin Sodium (Lovenox) 40 mg SUBCUT Q24H [facility] Last Admin: 05/03/17 10:51 Dose: 40 mg Fluconazole (Diflucan) 100 mg PO DAILY [facility] Last Admin: 05/07/17 08:19 Dose: 100 mg Hydrochlorothiazide (Hydrochlorothiazide) 12.5 mg PO DAILY [facility] Last Admin: 05/07/17 08:20 Dose: 12.5 mg Hydromorphone HCl (Dilaudid) 1 mg IVPUSH Q2H PRN PRN Reason: Pain Last Admin: 05/03/17 08:31 Dose: 1 mg Hydromorphone HCl (Dilaudid) 2 mg PO Q6H PRN PRN Reason: Pain Last Admin: 05/05/17 20:35 Dose: 2 mg Sodium Chloride (Normal Saline) 500 mls @ 999 mls/hr IV STAT [facility] Last Admin: 05/02/17 20:18 Dose: 999 mls/hr Piperacillin Sod/Tazobactam (Sod 3.375 gm/ Sodium Chloride) 50 mls @ 100 mls/ hr IV ONETIME ONE Stop: 05/02/17 21:08 Last Admin: 05/02/17 20:44 Dose: 100 mls/hr Piperacillin Sod/Tazobactam (Sod 3.375 gm/ Sodium Chloride) 50 mls @ 100 mls/ hr IV Q6H [facility] Last Admin: 05/05/17 08:42 Dose: 100 mls/hr Sodium Chloride (Normal Saline) 1,000 mls @ 125 mls/hr IV ASDIRECTED [facility] Last Admin: 05/04/17 06:27 Dose: 125 mls/hr Sodium Chloride (Normal Saline) 1,000 mls @ 999 mls/hr IV .Bolus ONE Stop: 05/03/17 11:25 Last Admin: 05/03/17 10:26 Dose: 999 mls/hr Pantoprazole Sodium 40 mg/ (Sodium Chloride) 10 mls @ 300 mls/hr IV Q24H [facility] Last Admin: 05/07/17 10:56 Dose: 300 mls/hr Ceftriaxone Sodium/Dextrose 1 (gm/ Premix) 50 mls @ 100 mls/hr IV Q24H [facility] Last Admin: 05/07/17 12:59 Dose: Not Given Magnesium Sulfate 2 gm/ Premix 50 mls @ 25 mls/hr IV ONETIME ONE Stop: 05/06/17 14:15 Last Admin: 05/06/17 13:42 Dose: 25 mls/hr Insulin Aspart (Novolog) 14 unit SUBCUT TIDAC [facility] Last Admin: 05/07/17 11:52 Dose: Not Given Insulin Glargine (Lantus Solostar) 50 units SUBCUT BEDTIME [facility] Last Admin: 05/06/17 21:49 Dose: Not Given Insulin Glargine (Lantus Solostar) 10 units SUBCUT ONETIME ONE Stop: 05/06/17 21:55 Insulin Glargine (Lantus Solostar) 10 units SUBCUT ONETIME ONE Stop: 05/05/17 21:55 Last Admin: 05/05/17 22:00 Dose: 10 units Insulin Glargine (Lantus Solostar) 10 units SUBCUT ONETIME ONE Stop: 05/06/17 21:01 Last Admin: 05/06/17 21:45 Dose: 10 units Iopamidol (Isovue Multipack-370 (76%)) 100 ml IVPUSH ONETIME STA Stop: 05/02/17 20:48 Last Admin: 05/02/17 22:25 Dose: 75 ml Loperamide HCl (Imodium) 2 mg PO ASDIRECTED PRN PRN Reason: Diarrhea Last Admin: 05/04/17 10:53 Dose: 2 mg Lorazepam (Ativan) 1 mg PO Q6H PRN PRN Reason: Anxiety Last Admin: 05/07/17 04:22 Dose: 1 mg Ondansetron HCl (Zofran) 4 mg IVPUSH ONETIME ONE Stop: 05/02/17 20:03 Last Admin: 05/02/17 20:18 Dose: 4 mg Ondansetron HCl (Zofran) 4 mg IVPUSH Q4H PRN PRN Reason: Nausea/Vomiting Last Admin: 05/07/17 04:22 Dose: 4 mg Oxycodone/Acetaminophen (Percocet 325-5 Mg) 1 tab PO Q4H PRN PRN Reason: Pain Last Admin: 05/07/17 04:22 Dose: 1 tab Potassium Bicarbonate (Klor-Con Ef) 25 meq PO DAILY [facility] Last Admin: 05/06/17 12:00 Dose: 25 meq Potassium Chloride (Klor-Con M20) 20 meq PO DAILY [facility] Potassium Chloride (Klor-Con M20) 40 meq PO DAILY [facility] Last Admin: 05/07/17 08:20 Dose: 40 meq Promethazine HCl (Phenergan) 25 mg IM Q6H PRN PRN Reason: Nausea/Vomiting Last Admin: 05/06/17 15:29 Dose: 25 mg Sodium Chloride (Saline Flush) 10 ml FLUSH ASDIRECTED PRN PRN Reason: Keep Vein Open Sodium Chloride (Saline Flush) 2.5 ml FLUSH ASDIRECTED PRN PRN Reason: Keep Vein Open - Free Text/Narrative Note: Dr. Aurelia Silverio MD notes: Dr. Brendon Baldwin admitted this patient and Dr. Metzger , out of habit of the last 3 days, directed it to me to be countersigned. It will be sent to Dr. Baldwin who is familiar with this patient. <Brendon Baldwin J - Last Filed: 10/06/17 20:13> - Patient Data Vitals - Most Recent: Last Vital Signs Temp 36.0 C 05/07/17 11:52 Pulse 80 05/07/17 11:52 Resp 20 05/07/17 11:52 BP 135/79 05/07/17 11:52 Pulse Ox 98 05/07/17 11:52 Med Orders - Current: Current Medications Discontinued Medications Atorvastatin Calcium (Lipitor) 40 mg PO BEDTIME [facility] Last Admin: 05/06/17 20:11 Dose: 40 mg Diltiazem HCl (Cardizem Cd) 50 mg PO BEDTIME [facility] Diltiazem HCl (Cardizem Cd) 360 mg PO BEDTIME [facility] Last Admin: 05/06/17 20:11 Dose: 360 mg Diphenhydramine/Nystatin/Lidocaine (Magic Mouthwash) 30 ml PO QID [facility] Last Admin: 05/07/17 12:59 Dose: Not Given Enoxaparin Sodium (Lovenox) 40 mg SUBCUT Q24H [facility] Last Admin: 05/03/17 10:51 Dose: 40 mg Fluconazole (Diflucan) 100 mg PO DAILY [facility] Last Admin: 05/07/17 08:19 Dose: 100 mg Hydrochlorothiazide (Hydrochlorothiazide) 12.5 mg PO DAILY [facility] Last Admin: 05/07/17 08:20 Dose: 12.5 mg Hydromorphone HCl (Dilaudid) 1 mg IVPUSH Q2H PRN PRN Reason: Pain Last Admin: 05/03/17 08:31 Dose: 1 mg Hydromorphone HCl (Dilaudid) 2 mg PO Q6H PRN PRN Reason: Pain Last Admin: 05/05/17 20:35 Dose: 2 mg Sodium Chloride (Normal Saline) 500 mls @ 999 mls/hr IV STAT [facility] Last Admin: 05/02/17 20:18 Dose: 999 mls/hr Piperacillin Sod/Tazobactam (Sod 3.375 gm/ Sodium Chloride) 50 mls @ 100 mls/ hr IV ONETIME ONE Stop: 05/02/17 21:08 Last Admin: 05/02/17 20:44 Dose: 100 mls/hr Piperacillin Sod/Tazobactam (Sod 3.375 gm/ Sodium Chloride) 50 mls @ 100 mls/ hr IV Q6H [facility] Last Admin: 05/05/17 08:42 Dose: 100 mls/hr Sodium Chloride (Normal Saline) 1,000 mls @ 125 mls/hr IV ASDIRECTED [facility] Last Admin: 05/04/17 06:27 Dose: 125 mls/hr Sodium Chloride (Normal Saline) 1,000 mls @ 999 mls/hr IV .Bolus ONE Stop: 05/03/17 11:25 Last Admin: 05/03/17 10:26 Dose: 999 mls/hr Pantoprazole Sodium 40 mg/ (Sodium Chloride) 10 mls @ 300 mls/hr IV Q24H [facility] Last Admin: 05/07/17 10:56 Dose: 300 mls/hr Ceftriaxone Sodium/Dextrose 1 (gm/ Premix) 50 mls @ 100 mls/hr IV Q24H [facility] Last Admin: 05/07/17 12:59 Dose: Not Given Magnesium Sulfate 2 gm/ Premix 50 mls @ 25 mls/hr IV ONETIME ONE Stop: 05/06/17 14:15 Last Admin: 05/06/17 13:42 Dose: 25 mls/hr Insulin Aspart (Novolog) 14 unit SUBCUT TIDAC [facility] Last Admin: 05/07/17 11:52 Dose: Not Given Insulin Glargine (Lantus Solostar) 50 units SUBCUT BEDTIME [facility] Last Admin: 05/06/17 21:49 Dose: Not Given Insulin Glargine (Lantus Solostar) 10 units SUBCUT ONETIME ONE Stop: 05/06/17 21:55 Insulin Glargine (Lantus Solostar) 10 units SUBCUT ONETIME ONE Stop: 05/05/17 21:55 Last Admin: 05/05/17 22:00 Dose: 10 units Insulin Glargine (Lantus Solostar) 10 units SUBCUT ONETIME ONE Stop: 05/06/17 21:01 Last Admin: 05/06/17 21:45 Dose: 10 units Iopamidol (Isovue Multipack-370 (76%)) 100 ml IVPUSH ONETIME STA Stop: 05/02/17 20:48 Last Admin: 05/02/17 22:25 Dose: 75 ml Loperamide HCl (Imodium) 2 mg PO ASDIRECTED PRN PRN Reason: Diarrhea Last Admin: 05/04/17 10:53 Dose: 2 mg Lorazepam (Ativan) 1 mg PO Q6H PRN PRN Reason: Anxiety Last Admin: 05/07/17 04:22 Dose: 1 mg Ondansetron HCl (Zofran) 4 mg IVPUSH ONETIME ONE Stop: 05/02/17 20:03 Last Admin: 05/02/17 20:18 Dose: 4 mg Ondansetron HCl (Zofran) 4 mg IVPUSH Q4H PRN PRN Reason: Nausea/Vomiting Last Admin: 05/07/17 04:22 Dose: 4 mg Oxycodone/Acetaminophen (Percocet 325-5 Mg) 1 tab PO Q4H PRN PRN Reason: Pain Last Admin: 05/07/17 04:22 Dose: 1 tab Potassium Bicarbonate (Klor-Con Ef) 25 meq PO DAILY [facility] Last Admin: 05/06/17 12:00 Dose: 25 meq Potassium Chloride (Klor-Con M20) 20 meq PO DAILY [facility] Potassium Chloride (Klor-Con M20) 40 meq PO DAILY [facility] Last Admin: 05/07/17 08:20 Dose: 40 meq Promethazine HCl (Phenergan) 25 mg IM Q6H PRN PRN Reason: Nausea/Vomiting Last Admin: 05/06/17 15:29 Dose: 25 mg Sodium Chloride (Saline Flush) 10 ml FLUSH ASDIRECTED PRN PRN Reason: Keep Vein Open Sodium Chloride (Saline Flush) 2.5 ml FLUSH ASDIRECTED PRN PRN Reason: Keep Vein Open *Q Meaningful Use (DIS) - VTE *Q VTE Criteria *Q: - Stroke *Q Stroke Criteria *Q: - AMI *Q AMI Criteria *Q: - Free Text/Narrative Note: Patient was signed out to Dr. Silverio the night prior to discharge.
== END 2017-05-07 12:30 | disposition home or self-care (01) | DRG 872 ==
LOC: MW.ED 19:43 → MW.ICU 05-03 00:06 → MW.MS 05-03 16:05
PROVIDERS: ADMIT Internal Medicine; ATTEND Internal Medicine
DX: A41.9 Sepsis, unspecified organism (principal); N39.0 Urinary tract infection, site not specified; C18.9 Malignant neoplasm of colon, unspecified; B37.0 Candidal stomatitis; E87.2 Acidosis; E11.9 Type 2 diabetes mellitus without complications; I10 Essential (primary) hypertension; E78.00 Pure hypercholesterolemia, unspecified; F41.8 Other specified anxiety disorders; E86.0 Dehydration; D64.9 Anemia, unspecified; D69.6 Thrombocytopenia, unspecified; R10.31 Right lower quadrant pain; Z79.899 Other long term (current) drug therapy; Z88.8 Allergy status to other drugs, medicaments and biological substances
CPT/HCPCS: 36415; 71020; 71020-26; 74177; 74177-26; 80048; 80053; 81001; 82150; 82962; 83605; 83690; 83735; 83880; 84100; 84484; 85025; 85610; 87040; 87086; 93005; 96365; 96375; 99283; 99285-25; A9270-GY; C9113; J0696; J1170; J1650; J1815-GY; J2405; J2543; J2550; J3475; J7040; J7050; Q9967

== ENCOUNTER 2017-07-24 19:23 | Emergency (ER) | payer SELFPAY ==
--- NOTE | 2017-07-24 20:12 | EDM.PDOC ---
ED HPI GENERAL MEDICAL PROBLEM - General Chief Complaint: Lower Extremity Injury/Pain Stated Complaint: PT HURT LT FOOT Time Seen by Provider: 07/24/17 19:45 Source of Information: Reports: Patient History Limitations: Reports: No Limitations - History of Present Illness INITIAL COMMENTS - FREE TEXT/NARRATIVE: History of present illness: [57 show female comes in complaining of pain to left foot. Patient indicates that she has a sore between her fourth and fifth toe and that now it is inflamed she thinks is infected and she has redness and swelling going up her leg.] Review of systems: As per history of present illness and below otherwise all systems reviewed and negative. Past medical history: As per history of present illness and as reviewed below otherwise noncontributory. Surgical history: As per history of present illness and as reviewed below otherwise noncontributory. Social history: No reported history of drug or alcohol abuse. Family history: As per history of present illness and as reviewed below otherwise noncontributory. Physical exam: HEENT: Atraumatic, normocephalic, pupils reactive, negative for conjunctival pallor or scleral icterus, mucous membranes moist, throat clear, neck supple, nontender, trachea midline. Lungs: Clear to auscultation, breath sounds equal bilaterally, chest nontender. Heart: S1S2, regular, negative for clicks, rubs, or JVD. Abdomen: Soft, nondistended, nontender. Negative for masses or hepatosplenomegaly. Negative for costovertebral tenderness. Pelvis: Stable nontender. Genitourinary: Deferred. Rectal: Deferred. Extremities: Small blister noted between fourth and fifth toe with some small amount of erythema at the site of the blister as well as on the dorsal aspect of the foot with a mild amount of radiation to the ankle. Otherwise neurovascular is noted to be unremarkable. Neuro: Awake, alert, oriented. Cranial nerves II through XII unremarkable. Cerebellum unremarkable. Motor and sensory unremarkable throughout. Exam nonfocal. Diagnostics: [] Therapeutics: [] Impression: [#1 cellulitis to left foot] Plan: [Antibiotics] Definitive disposition and diagnosis as appropriate pending reevaluation and review of above. Left Feet Pain Score (Numeric/FACES): 7 - Related Data Allergies Allergy/AdvReac Type Severity Reaction Status Date / Time hydrocodone Allergy Unknown Hives Verified 07/24/17 19:37 ibuprofen Allergy Unknown Hives Verified 07/24/17 19:37 morphine Allergy Unknown Seizure Verified 07/24/17 19:37 nitroglycerin Allergy Unknown Difficulty Verified 07/24/17 19:37 Breathing caffeine Allergy Vomiting Verified 07/24/17 19:37 diphenhydramine HCl Allergy Excitabilit Verified 07/24/17 19:37 [From Benadryl] y Home Meds: Home Meds Diltiazem HCl [Diltiazem 24Hr ER] 360 mg PO BEDTIME 05/09/14 [History] Hydrochlorothiazide 12.5 mg PO DAILY 05/09/14 [History] atorvaSTATin Calcium [Atorvastatin Calcium] 20 mg PO BEDTIME 05/09/14 [History] metFORMIN [Glucophage] 1,000 mg PO BIDMEALS 05/09/14 [History] HYDROmorphone [Dilaudid] 2 mg PO Q6H PRN 10/27/15 [History] Loratadine 10 mg PO DAILY 10/27/15 [History] Prochlorperazine [Compazine] 10 mg PO QID PRN 10/27/15 [History] Valsartan 160 mg PO DAILY 10/27/15 [History] LORazepam [Ativan] 1 mg PO QID PRN 12/26/15 [History] Estrogens, Conjugated [Premarin Vaginal Crm] 1 applic VAG ASDIRECTED 04/07/17 [ History] oxyCODONE HCl/Acetaminophen [oxyCODONE-Acetaminophen 5-325] 1 tab PO Q4H PRN 03/20 [History] Insulin Aspart [NovoLOG] 14 unit SUBCUT TIDAC pen 04/09/17 [Rx] Insulin Glarg,Human.Rec.Analog [LantUS Solostar] 50 units SUBCUT BEDTIME pen [Rx] Diphenhyd/Lidocaine/Nystatin [Magic Mouthwash] 30 ml PO QID 05/03/17 [History] Loperamide [Imodium] 2 mg PO ASDIRECTED 05/03/17 [History] Cefdinir [Omnicef] 300 mg PO BID #14 cap 05/07/17 [Rx] Diphenhyd/Lidocaine/Nystatin [Magic Mouthwash] 30 ml PO QID #1 bottle 05/07/17 [ Rx] Fluconazole [Diflucan] 100 mg PO DAILY #14 tablet 05/07/17 [Rx] Ondansetron [Zofran ODT] 4 mg PO Q4H PRN #14 tab.dis 05/07/17 [Rx] Pantoprazole [ProTONIX] 40 mg PO BEDTIME #30 tab.cr 05/07/17 [Rx] Potassium Chloride [Klor-Con M20] 40 meq PO DAILY #14 tab.er 05/07/17 [Rx] Past Medical History Cardiovascular History: Reports: High Cholesterol, Hypertension Respiratory History: Reports: None Gastrointestinal History: Reports: GERD Other Gastrointestinal History: hernia, colon CA Genitourinary History: Reports: None 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: Musculoskeletal History: Reports: None Neurological History: Reports: None Psychiatric History: Reports: Anxiety, Depression Endocrine/Metabolic History: Reports: Diabetes, Type II Hematologic History: Reports: None Immunologic History: Reports: None Oncologic (Cancer) History: Reports: Colon, Liver, Metastatic Dermatologic History: Reports: None - Infectious Disease History Infectious Disease History: Reports: None - Past Surgical History HEENT Surgical History: Reports: Adenoidectomy, Tonsillectomy GI Surgical History: Reports: Cholecystectomy, Colon, Hernia Repair/Other Female Surgical History: Reports: Hysterectomy, Salpingo-Oophorectomy Endocrine Surgical History: Reports: None Musculoskeletal Surgical History: Reports: None Oncologic Surgical History: Reports: Other (See Below) Other Oncologic Surgeries/Procedures: presently on chemo treatment Dermatological Surgical History: Reports: None Social & Family History - Family History Family Medical History: Noncontributory GI: Reports: None - Tobacco Use Smoking Status *Q: Never Smoker Second Hand Smoke Exposure: No - Caffeine Use Caffeine Use: Reports: None - Alcohol Use Days Per Week of Alcohol Use: 0 - Recreational Drug Use Recreational Drug Use: No Review of Systems - Review of Systems Review Of Systems: See Below (See history of present illness) ED EXAM, GENERAL - Physical Exam Exam: See Below (See history of present illness) Course - Vital Signs Last Recorded V/S: Last Vital Signs Temp 36.5 C 07/24/17 19:41 Pulse 103 H 07/24/17 19:41 Resp 20 07/24/17 19:41 BP 177/95 H 07/24/17 19:41 Pulse Ox 98 07/24/17 19:41 - Orders/Labs/Meds Labs: Laboratory Tests 07/24/17 Range/Units 19:48 POC Glucose 237 H (60-110) mg/dL Departure - Departure Time of Disposition: 20:10 Disposition: Home, Self-Care 01 Condition: Good Clinical Impression: Cellulitis of left foot - Discharge Information Referrals: PCP,None [Primary Care Provider] - Additional Instructions: The following information is given to patients seen in the emergency department who are being discharged to home. This information is to outline your options for follow-up care. We provide all patients seen in our emergency department with a follow-up referral. The need for follow-up, as well as the timing and circumstances, are variable depending upon the specifics of your emergency department visit. If you don't have a primary care physician on staff, we will provide you with a referral. We always advise you to contact your personal physician following an emergency department visit to inform them of the circumstance of the visit and for follow-up with them and/or the need for any referrals to a consulting specialist. The emergency department will also refer you to a specialist when appropriate. This referral assures that you have the opportunity for follow-up care with a specialist. All of these measure are taken in an effort to provide you with optimal care, which includes your follow-up. Under all circumstances we always encourage you to contact your private physician who remains a resource for coordinating your care. When calling for follow-up care, please make the office aware that this follow-up is from your recent emergency room visit. If for any reason you are refused follow-up, please contact the [facility] Emergency Department at and asked to speak to the emergency department charge nurse. Take medication as directed Follow-up with PCP in 2-3 days Return to ED as needed as discussed
[2017-07-25 04:28] VITALS: BP 160/87
== END 2017-07-24 20:26 | disposition home or self-care (01) ==
LOC: MW.ED 19:23
DX: S90.822A Blister (nonthermal), left foot, initial encounter (principal); L03.116 Cellulitis of left lower limb; E78.00 Pure hypercholesterolemia, unspecified; E11.9 Type 2 diabetes mellitus without complications; I10 Essential (primary) hypertension; Z88.8 Allergy status to other drugs, medicaments and biological substances; Z88.6 Allergy status to analgesic agent; Z79.899 Other long term (current) drug therapy; Z79.84 Long term (current) use of oral hypoglycemic drugs; Z88.5 Allergy status to narcotic agent
CPT/HCPCS: 82962; 99282; 99283

== ENCOUNTER 2017-08-02 02:29 | Emergency (ER) | payer OTHER ==
[2017-08-02] MEDS ORDERED: HYDROmorphone 2 MG Tab PO STA (03:49)
--- NOTE | 2017-08-02 03:56 | EDM.PDOC ---
ED HPI GENERAL MEDICAL PROBLEM - General Chief Complaint: Lower Extremity Injury/Pain Stated Complaint: RIGHT KNEE PAIN Time Seen by Provider: 08/02/17 03:45 Source of Information: Reports: Patient, Family, RN - History of Present Illness INITIAL COMMENTS - FREE TEXT/NARRATIVE: ground level fall about 10 hours ago and suffering right knee, ankle, foot pain no other injury felt her knee twist ROS no head injury no LOC no other complaint PMHistory: currently receiving chemotherapy for metastatic colon cancer; scheduled for this week. Right Leg Pain Score (Numeric/FACES): 10 - Related Data Allergies Allergy/AdvReac Type Severity Reaction Status Date / Time hydrocodone Allergy Unknown Hives Verified 08/02/17 02:43 ibuprofen Allergy Unknown Hives Verified 08/02/17 02:43 morphine Allergy Unknown Seizure Verified 08/02/17 02:43 nitroglycerin Allergy Unknown Difficulty Verified 08/02/17 02:43 Breathing caffeine Allergy Vomiting Verified 08/02/17 02:43 diphenhydramine HCl Allergy Excitabilit Verified 08/02/17 02:43 [From Benadryl] y Home Meds: Home Meds Diltiazem HCl [Diltiazem 24Hr ER] 360 mg PO BEDTIME 05/09/14 [History] Hydrochlorothiazide 12.5 mg PO DAILY 05/09/14 [History] atorvaSTATin Calcium [Atorvastatin Calcium] 40 mg PO BEDTIME 05/09/14 [History] metFORMIN [Glucophage] 1,000 mg PO BIDMEALS 05/09/14 [History] HYDROmorphone [Dilaudid] 2 mg PO Q6H PRN 10/27/15 [History] Loratadine 10 mg PO DAILY 10/27/15 [History] Prochlorperazine [Compazine] 10 mg PO QID PRN 10/27/15 [History] Valsartan 160 mg PO DAILY 10/27/15 [History] LORazepam [Ativan] 1 mg PO QID PRN 12/26/15 [History] Estrogens, Conjugated [Premarin Vaginal Crm] 1 applic VAG ASDIRECTED 04/07/17 [ History] oxyCODONE HCl/Acetaminophen [oxyCODONE-Acetaminophen 5-325] 1 tab PO Q4H PRN 03/20 [History] Insulin Aspart [NovoLOG] 14 unit SUBCUT TIDAC pen 04/09/17 [Rx] Insulin Glarg,Human.Rec.Analog [LantUS Solostar] 50 units SUBCUT BEDTIME pen [Rx] Loperamide [Imodium] 2 mg PO ASDIRECTED 05/03/17 [History] Diphenhyd/Lidocaine/Nystatin [Magic Mouthwash] 30 ml PO QID #1 bottle 05/07/17 [ Rx] Ondansetron [Zofran ODT] 4 mg PO Q4H PRN #14 tab.dis 05/07/17 [Rx] Pantoprazole [ProTONIX] 40 mg PO BEDTIME #30 tab.cr 05/07/17 [Rx] Sulfamethoxazole/Trimethoprim [Bactrim Ds Tablet] 1 each PO BID #20 tablet 07/24 [Rx] Dexamethasone 8 mg PO DAILY 08/02/17 [History] Past Medical History Cardiovascular History: Reports: High Cholesterol, Hypertension Respiratory History: Reports: None Gastrointestinal History: Reports: GERD Other Gastrointestinal History: hernia, colon CA Genitourinary History: Reports: None 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: , Other (See Below) Other OB/BYN History: x2 Musculoskeletal History: Reports: None Neurological History: Reports: None Psychiatric History: Reports: Anxiety, Depression Endocrine/Metabolic History: Reports: Diabetes, Type II Hematologic History: Reports: None Immunologic History: Reports: None Oncologic (Cancer) History: Reports: Colon, Liver, Metastatic Dermatologic History: Reports: None - Infectious Disease History Infectious Disease History: Reports: Measles - Past Surgical History HEENT Surgical History: Reports: Adenoidectomy, Tonsillectomy GI Surgical History: Reports: Cholecystectomy, Colon, Hernia Repair/Other Other GI Surgeries/Procedures: colectomy x2 Female Surgical History: Reports: Hysterectomy, Salpingo-Oophorectomy Endocrine Surgical History: Reports: None Musculoskeletal Surgical History: Reports: None Oncologic Surgical History: Reports: Other (See Below) Other Oncologic Surgeries/Procedures: presently on chemo treatment Dermatological Surgical History: Reports: None Social & Family History - Family History Family Medical History: Noncontributory GI: Reports: None - Tobacco Use Smoking Status *Q: Never Smoker Second Hand Smoke Exposure: Yes - Caffeine Use Caffeine Use: Reports: None - Alcohol Use Days Per Week of Alcohol Use: 0 - Recreational Drug Use Recreational Drug Use: No Review of Systems - Review of Systems Review Of Systems: See Below (as per HPI) ED EXAM, GENERAL - Physical Exam Exam: See Below Free Text/Narrative:: alert right knee with diffuse swelling and tenderness pain with movement; no definite effusion; no deformity mild tenderness and swelling dorsum proximal foot normal distal motor, tendon and vascular function RLE Course - Vital Signs Last Recorded V/S: Last Vital Signs Temp 97.7 F 08/02/17 02:50 Pulse 103 H 08/02/17 02:50 Resp 12 08/02/17 02:50 BP 131/77 08/02/17 02:50 Pulse Ox 98 08/02/17 02:50 - Orders/Labs/Meds Orders: Active Orders 24 hr Category Date Time Status Communication Order [RC] PER UNIT ROUTINE Care 08/02/17 03:50 Ordered Ankle Min 3V Rt [CR] Stat Exams 08/02/17 02:44 Taken Foot 2V Rt [CR] Stat Exams 08/02/17 02:44 Taken Knee 3V Rt [CR] Stat Exams 08/02/17 02:44 Taken Meds: Medications Discontinued Medications Generic Name Dose Route Start Last Admin Trade Name Freq PRN Reason Stop Dose Admin Hydromorphone HCl 2 mg 08/02/17 03:49 Dilaudid PO 08/02/17 03:50 NOW STA Departure - Departure Time of Disposition: 03:54 Disposition: Home, Self-Care 01 Condition: Fair Clinical Impression: Knee injury - Discharge Information Referrals: Iesha Dangelo, OIL TRUCK DRIVER [Primary Care Provider] - Additional Instructions: dilaudid may be habit forming, sedating and constipating. Do not combine it with your oxycodone or with tylenol use crutches and knee immobilizer as needed until follow up with your provider within a week you may bear a little weight if tolerated. - My Orders Last 24 Hours: My Active Orders 08/02/17 02:44 Ankle Min 3V Rt [CR] Stat Foot 2V Rt [CR] Stat Knee 3V Rt [CR] Stat 08/02/17 03:50 Communication Order [RC] PER UNIT ROUTINE - Assessment/Plan Last 24 Hours: My Active Orders 08/02/17 02:44 Ankle Min 3V Rt [CR] Stat Foot 2V Rt [CR] Stat Knee 3V Rt [CR] Stat 08/02/17 03:50 Communication Order [RC] PER UNIT ROUTINE
[2017-08-02 04:06] VITALS: BP 125/82
--- NOTE | 2017-08-02 15:43 | CR ---
EXAM DATE: 08/02/17 PATIENT'S AGE: 57 Patient: JOCELYNN SANTIAGO Facility: [place], [place] Site . Site : 1960 Study: XRay Knee Right [id number]/30/2017 3:25:45 AM Ordering Physician: Doctor Esparza Final Report: INDICATION: Fall TECHNIQUE: Two views right knee COMPARISON: None FINDINGS: Bones: Alignment is normal. No fractures or bone lesions. Joint spaces: Marginal lateral tibial osteophytes. Soft tissues: Unremarkable. IMPRESSION: No evidence of acute trauma. Dictated by Boyd Fernando MD @ 08/02/2017 3:27:39 AM Dictated by: Boyd Fernando MD @ 08/02/2017 03:27:45 (Electronic Signature) Report Signed by Proxy. MIRTA
--- NOTE | 2017-08-02 15:44 | CR ---
EXAM DATE: 08/02/17 PATIENT'S AGE: 57 Patient: JOCELYNN SANTIAGO Facility: [place], [place] Site . Site : 1960 Study: XRay Extremity Right [id number]/30/2017 3:26:54 AM Ordering Physician: Doctor Esparza Final Report: INDICATION: INJURY TECHNIQUE: Right foot 3 views COMPARISON: None. FINDINGS: Bones: Alignment is normal. No fractures or bone lesions. Joint spaces: Unremarkable. Soft tissues: Unremarkable. IMPRESSION: Unremarkable right foot. Dictated by: Boyd Fernando MD @ 08/02/2017 03:31:11 (Electronic Signature) Report Signed by Proxy. MIRTA
--- NOTE | 2017-08-02 15:45 | CR ---
EXAM DATE: 08/02/17 PATIENT'S AGE: 57 Patient: JOCELYNN SANTIAGO Facility: [place], [place] Site . Site : 1960 Study: XRay Extremity Right [id number]/30/2017 3:27:35 AM Ordering Physician: Doctor Esparza Final Report: INDICATION: INJURY TECHNIQUE: Right ankle 3 views. COMPARISON: None. FINDINGS: Bones: Alignment is normal. No fractures or bone lesions. Joint spaces: Unremarkable. Soft tissues: Unremarkable. IMPRESSION: Unremarkable right ankle. Dictated by: Boyd Fernando MD @ 08/02/2017 03:31:46 (Electronic Signature) Report Signed by Proxy. MIRTA
== END 2017-08-02 04:25 | disposition home or self-care (01) ==
LOC: MW.ED 02:29
DX: S89.91XA Unspecified injury of right lower leg, initial encounter (principal); I10 Essential (primary) hypertension; E78.00 Pure hypercholesterolemia, unspecified; K21.9 Gastro-esophageal reflux disease without esophagitis; E11.9 Type 2 diabetes mellitus without complications; F32.9 Major depressive disorder, single episode, unspecified; Z79.4 Long term (current) use of insulin; Z79.899 Other long term (current) drug therapy; Z88.5 Allergy status to narcotic agent; Z88.6 Allergy status to analgesic agent; Z88.8 Allergy status to other drugs, medicaments and biological substances; X50.1XXA Overexertion from prolonged static or awkward postures, initial encounter; W18.30XA Fall on same level, unspecified, initial encounter
CPT/HCPCS: 73562; 73610; 73620; 99283; A9270; 99281

== ENCOUNTER 2017-08-06 13:04 | Observation (INO) | payer OTHER ==
[2017-08-06] MEDS ORDERED: Sodium Chloride 0.9% 1,000 ML IV ONE (13:33)
[2017-08-06] MEDS ORDERED: HYDROmorphone 1 MG/ML Syringe IV ONE (13:33)
[2017-08-06 14:02] LABS: CHLORIDE,CL 100 mmol/L (98-110); SODIUM,NA 135 mmol/L (136-146)
--- NOTE | 2017-08-06 14:16 | CR ---
EXAMINATION: Abdomen HISTORY: Pain COMPARISON: 05/02/2017 TECHNIQUE: AP and upright views FINDINGS: There is no free air under the diaphragm. Multiple hepatic and splenic granulomata are note d. Cholecystectomy clips are present. Partially visualized joint catheter tip in good position. There is a nonobstructive bowel gas pattern is stool within the colon and rectum. No abnormal calcificatio ns project over the kidneys. The visualized osseous structures appear normal. IMPRESSION: 1. No acute findings noted within the abdomen.
--- NOTE | 2017-08-06 14:47 | EDM.PDOC ---
ED HPI GENERAL MEDICAL PROBLEM - General Chief Complaint: Gastrointestinal Problem Stated Complaint: PAIN RT LEG Time Seen by Provider: 08/06/17 13:20 Source of Information: Reports: Patient History Limitations: Reports: No Limitations - History of Present Illness INITIAL COMMENTS - FREE TEXT/NARRATIVE: HISTORY AND PHYSICAL: History of present illness: [Patient comes to the emergency room from the [facility] where she regularly receives medical care. Patient states that she has not had a bowel movement for 6 days and she feels full. Was evaluated at the [facility] this morning. staff there were concerned about hypoactive bowel sounds and question if she had an impaction or obstruction and encouraged her to report to the ER for evaluation. Patient has been undergoing chemotherapy for her third bout of colon cancer which was diagnosed in December 2016. Is now stage 4 with metastases to abdomen, and possibly to her rectum. history of 2 prior colectomies. She has been taking Dilaudid regularly for chronic knee pain and colon cancer. Up until 2 days ago she had been taking 1-2 tablets every 4 hours throughout the day. She stopped Dilaudid 2 days ago. Has tried a suppository and enema without any results. Her oncologist is in [place] at [facility]. History of Insulin dependent diabetes and HTN., ] Review of systems: As per history of present illness and below otherwise all systems reviewed and negative. Past medical history: As per history of present illness and as reviewed below otherwise noncontributory. Surgical history: As per history of present illness and as reviewed below otherwise noncontributory. Social history: No reported history of drug or alcohol abuse. Family history: As per history of present illness and as reviewed below otherwise noncontributory. Physical exam: Gen. well-developed well-nourished elderly appearing female in no acute distress. Vital signs are stable and reviewed by this examiner. HEENT: Atraumatic, normocephalic. Oral mucous membranes are pink and moist. Lungs: Clear to auscultation, breath sounds equal bilaterally. Heart: S1S2, regular, negative for clicks. Abdomen: Bowel sounds are present throughout but are particularly quiet over her right lower quadrant. Her abdomen is soft and nondistended. She is tender with palpation over the suprapubic area. No significant tenderness guarding or rebound over right or left lower abdomen. No CVA tenderness. Pelvis: Stable nontender. Genitourinary: Deferred. Rectal: Hemorrhoids are appreciated to her external rectum. Large amount of hard stool is present in the rectum upon digital rectal exam. Stool for occult blood is negative. Extremities: Atraumatic, negative for cords or calf pain. She is wearing a brace over her right knee. No swelling or cyanosis to her feet. Neurovascular unremarkable. Neuro: Awake, alert, oriented. Motor and sensory unremarkable throughout. Exam nonfocal. Diagnostics: [CBC, CMP, UA, urine culture, abdominal x-ray, blood cultures] Therapeutics: [1 liter NS, 1mg Dilaudid IV] Impression: [hyperglycemia constipation insulin dependent diabetes] Plan: [Case is discussed with Dr. Linares, resident for Dr. Brendon Baldwin who agrees to accept patient for observation. Patient is in agreement w/ plan. ] Definitive disposition and diagnosis as appropriate pending reevaluation and review of above. Bilateral Lower Abdomen Pain Score (Numeric/FACES): 10 Sacral Pain Score (Numeric/FACES): 7 - Related Data Allergies Allergy/AdvReac Type Severity Reaction Status Date / Time hydrocodone Allergy Unknown Hives Verified 08/06/17 13:24 ibuprofen Allergy Unknown Hives Verified 08/06/17 13:24 morphine Allergy Unknown Seizure Verified 08/06/17 13:24 nitroglycerin Allergy Unknown Difficulty Verified 08/06/17 13:24 Breathing caffeine Allergy Vomiting Verified 08/06/17 13:24 diphenhydramine HCl Allergy Excitabilit Verified 08/06/17 13:24 [From Benadryl] y Home Meds: Home Meds Diltiazem HCl [Diltiazem 24Hr ER] 360 mg PO BEDTIME 05/09/14 [History] Hydrochlorothiazide 12.5 mg PO DAILY 05/09/14 [History] atorvaSTATin Calcium [Atorvastatin Calcium] 20 mg PO BEDTIME 05/09/14 [History] metFORMIN [Glucophage] 1,000 mg PO BIDMEALS 05/09/14 [History] HYDROmorphone [Dilaudid] 1 - 2 tab PO Q4H PRN 10/27/15 [History] Loratadine 10 mg PO DAILY 10/27/15 [History] Valsartan 160 mg PO DAILY 10/27/15 [History] LORazepam [Ativan] 1 mg PO QID PRN 12/26/15 [History] Insulin Aspart [NovoLOG] 14 unit SUBCUT TIDAC pen 04/09/17 [Rx] Ondansetron [Zofran ODT] 4 mg PO Q4H PRN #14 tab.dis 05/07/17 [Rx] Insulin Glarg,Human.Rec.Analog [LantUS Solostar] 28 units SUBCUT BEDTIME [History] Pantoprazole [ProTONIX] 40 mg PO BID 08/06/17 [History] Past Medical History HEENT History: Reports: Impaired Vision Cardiovascular History: Reports: High Cholesterol, Hypertension Respiratory History: Reports: None Gastrointestinal History: Reports: GERD Other Gastrointestinal History: hernia, colon CA Genitourinary History: Reports: None 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: , Other (See Below) Other OB/BYN History: x2 Musculoskeletal History: Reports: None Neurological History: Reports: None Psychiatric History: Reports: Anxiety, Depression Endocrine/Metabolic History: Reports: Diabetes, Type II Hematologic History: Reports: None Immunologic History: Reports: None Oncologic (Cancer) History: Reports: Colon, Liver, Metastatic Dermatologic History: Reports: None - Infectious Disease History Infectious Disease History: Reports: Measles - Past Surgical History HEENT Surgical History: Reports: Adenoidectomy, Tonsillectomy GI Surgical History: Reports: Cholecystectomy, Colon, Hernia Repair/Other Other GI Surgeries/Procedures: colectomy x2 Female Surgical History: Reports: Hysterectomy, Salpingo-Oophorectomy Endocrine Surgical History: Reports: None Musculoskeletal Surgical History: Reports: None, Other (See Below) Other Musculoskeletal Surgeries/Procedures:: rigth knee pain Oncologic Surgical History: Reports: Other (See Below) Other Oncologic Surgeries/Procedures: presently on chemo treatment Dermatological Surgical History: Reports: None Social & Family History - Family History Family Medical History: Noncontributory GI: Reports: None - Tobacco Use Smoking Status *Q: Never Smoker Second Hand Smoke Exposure: Yes - Caffeine Use Caffeine Use: Reports: None - Alcohol Use Days Per Week of Alcohol Use: 0 - Recreational Drug Use Recreational Drug Use: No ED ROS GENERAL - Review of Systems Review Of Systems: ROS reveals no pertinent complaints other than HPI. ED EXAM, GI/ABD - Physical Exam Exam: See Below Course - Vital Signs Last Recorded V/S: Last Vital Signs Temp 98.4 F 08/06/17 16:00 Pulse 79 08/06/17 17:00 Resp 18 08/06/17 16:00 BP 162/93 H 08/06/17 17:00 Pulse Ox 100 08/06/17 18:10 - Orders/Labs/Meds Orders: Active Orders 24 hr Category Date Time Status Fecal Occult Blood Collection [RC] ONETIME Care 08/06/17 15:16 Active CULTURE BLOOD [BC] Stat Lab 08/06/17 14:54 Received CULTURE BLOOD [BC] Stat Lab 08/06/17 15:09 Received CULTURE URINE [RM] Stat Lab 08/06/17 15:49 Received Blood Culture x2 Reflex Set [OM.PC] Stat Oth 08/06/17 14:44 Ordered Medication Orders Atorvastatin Calcium (Lipitor) 20 mg PO BEDTIME MARIA T Diltiazem HCl (Cardizem Cd) 360 mg PO BEDTIME MARIA T Enoxaparin Sodium (Lovenox) 40 mg SUBCUT Q24H MARIA T Hydrochlorothiazide (Hydrochlorothiazide) 12.5 mg PO DAILY MARIA T Hydromorphone HCl (Dilaudid) 2 mg PO Q8H PRN PRN Reason: Pain Sodium Chloride (Normal Saline) 1,000 mls @ 125 mls/hr IV ASDIRECTED MARIA T Insulin Aspart (Novolog) 0 unit SUBCUT TIDAC MARIA T PRN Reason: Protocol Loratadine (Claritin) 10 mg PO DAILY MARIA T Lorazepam (Ativan) 1 mg PO QID PRN PRN Reason: Anxiety Metformin HCl (Glucophage) 1,000 mg PO BIDMEALS MARIA T Ondansetron HCl (Zofran) 4 mg IVPUSH Q4H PRN PRN Reason: Nausea Pantoprazole Sodium (Protonix) 40 mg PO BIDAC MARIA T Polyethylene Glycol (Miralax) 17 gm PO DAILY PRN PRN Reason: Constipation Senna/Docusate Sodium (Senokot-S) 1 each PO BID PRN PRN Reason: Constipation Valsartan (Diovan) 160 mg PO DAILY MARIA T Labs: Laboratory Tests 08/06/17 08/06/17 08/06/17 Range/Units 13:30 13:30 14:59 WBC 31.75 H (4.0-11.0) K/uL RBC 4.09 L (4.30-5.90) M/uL Hgb 13.4 (12.0-16.0) g/dL Hct 39.1 (36.0-46.0) % MCV 95.6 (80.0-98.0) fL MCH 32.8 H (27.0-32.0) pg MCHC 34.3 (31.0-37.0) g/dL RDW Std Deviation 59.0 (28.0-62.0) fl RDW Coeff of Ej 17 H (11.0-15.0) % Plt Count 206 (150-400) K/uL MPV 9.40 (7.40-12.00) fL Add Manual Diff YES Neutrophils % (Manual) 94 H (48.0-80.0) % Lymphocytes % (Manual) 5 L (16.0-40.0) % Monocytes % (Manual) 1 (0.0-15.0) % Nucleated RBC % 0.0 /100WBC Absolute Seg Neuts 29.8 H (1.4-5.7) Lymphocytes # (Manual) 1.6 (0.6-2.4) Monocytes # (Manual) 0.3 (0.0-0.8) Nucleated RBCs # 0 K/uL Sodium 135 L (136-146) mmol/L Potassium 4.1 (3.5-5.1) mmol/L Chloride 100 (98-110) mmol/L Carbon Dioxide 19 L (21-31) mmol/L BUN 24 H (6.0-23.0) mg/dL Creatinine 0.9 (0.6-1.5) mg/dL Est Cr Clr Drug Dosing 55.20 mL/min Estimated GFR (MDRD) > 60.0 ml/min Glucose 363 H (60-110) mg/dL Calcium 9.8 (8.8-10.8) mg/dL Total Bilirubin 0.8 (0.1-1.5) mg/dL AST 40 (5-40) IU/L ALT 45 (8-54) IU/L Alkaline Phosphatase 214 H (40-150) Total Protein 8.0 (6.0-8.0) g/dL Albumin 4.6 (3.5-5.0) g/dL Globulin 3.4 (2.0-3.5) g/dL Albumin/Globulin Ratio 1.4 (1.3-2.8) Urine Color YELLOW Urine Appearance CLEAR Urine pH 6.0 (5.0-8.0) Ur Specific [place] 1.015 (1.001-1.035) Urine Protein NEGATIVE (NEGATIVE) mg/dL Urine Glucose (UA) >=1000 (NEGATIVE) mg/dL Urine Ketones NEGATIVE (NEGATIVE) mg/dL Urine Occult Blood NEGATIVE (NEGATIVE) Urine Nitrite NEGATIVE (NEGATIVE) Urine Bilirubin NEGATIVE (NEGATIVE) Urine Urobilinogen 0.2 (<2.0) EU/dL Ur Leukocyte Esterase NEGATIVE (NEGATIVE) Urine RBC 0-1 (0-2/HPF) Urine WBC 0-1 (0-5/HPF) Ur Epithelial Cells RARE (NONE-FEW) Urine Bacteria RARE (NEGATIVE) Meds: Medications Generic Name Dose Route Start Last Admin Trade Name Freq PRN Reason Stop Dose Admin Atorvastatin Calcium 20 mg 08/06/17 21:00 Lipitor PO BEDTIME MARIA T Diltiazem HCl 360 mg 08/06/17 21:00 Cardizem Cd PO BEDTIME [facility] Enoxaparin Sodium 40 mg 08/06/17 17:15 Lovenox SUBCUT Q24H [facility] Hydrochlorothiazide 12.5 mg 08/07/17 09:00 Hydrochlorothiazide PO DAILY [facility] Hydromorphone HCl 2 mg 08/06/17 17:24 Dilaudid PO Q8H PRN Pain Sodium Chloride 1,000 mls @ 125 mls/hr 08/06/17 17:15 Normal Saline IV ASDIRECTED [facility] Insulin Aspart 0 unit 08/06/17 17:30 Novolog SUBCUT TIDAC [facility] Protocol Loratadine 10 mg 08/07/17 09:00 Claritin PO DAILY [facility] Lorazepam 1 mg 08/06/17 17:18 Ativan PO QID PRN Anxiety Metformin HCl 1,000 mg 08/07/17 08:00 Glucophage PO BIDMEALS [facility] Ondansetron HCl 4 mg 08/06/17 17:13 Zofran IVPUSH Q4H PRN Nausea Pantoprazole Sodium 40 mg 08/06/17 17:30 Protonix PO BIDAC MARIA T Polyethylene Glycol 17 gm 08/06/17 17:13 Miralax PO DAILY PRN Constipation Senna/Docusate Sodium 1 each 08/06/17 17:13 Senokot-S PO BID PRN Constipation Valsartan 160 mg 08/07/17 09:00 Diovan PO DAILY [facility] Discontinued Medications Generic Name Dose Route Start Last Admin Trade Name Marshall PRN Reason Stop Dose Admin Hydromorphone HCl 1 mg 08/06/17 13:33 08/06/17 14:36 Dilaudid IV 08/06/17 13:34 1 mg ONETIME ONE Administration Sodium Chloride 1,000 mls @ 500 mls/hr 08/06/17 13:33 08/06/17 14:05 Normal Saline IV 08/06/17 15:32 500 mls/hr STAT ONE Administration Departure - Departure Time of Disposition: 16:14 Disposition: Refer to Observation Condition: Good Clinical Impression: Hyperglycemia, Constipation, Diabetes - Discharge Information - My Orders Last 24 Hours: My Active Orders 08/06/17 14:44 Blood Culture x2 Reflex Set [OM.PC] Stat 08/06/17 14:54 CULTURE BLOOD [BC] Stat 08/06/17 15:09 CULTURE BLOOD [BC] Stat 08/06/17 15:16 Fecal Occult Blood Collection [RC] ONETIME 08/06/17 15:49 CULTURE URINE [RM] Stat - Assessment/Plan Last 24 Hours: My Active Orders 08/06/17 14:44 Blood Culture x2 Reflex Set [OM.PC] Stat 08/06/17 14:54 CULTURE BLOOD [BC] Stat 08/06/17 15:09 CULTURE BLOOD [BC] Stat 08/06/17 15:16 Fecal Occult Blood Collection [RC] ONETIME 08/06/17 15:49 CULTURE URINE [RM] Stat
[2017-08-06] MEDS ORDERED: Ondansetron 4 MG/2 ML SDV IVPUSH PRN (17:13)
[2017-08-06] MEDS ORDERED: Docusate Sodium/Sennosides Tab PO PRN (17:13)
[2017-08-06] MEDS: Insulin Aspart 100 Units/ML 3 ML Pen SUBCUT SCH (18:23)
[2017-08-06] MEDS: Enoxaparin 40 MG/0.4 ML Syringe SUBCUT SCH (18:24)
[2017-08-06] MEDS: Pantoprazole 40 MG Tab.CR PO SCH (18:24)
[2017-08-06] MEDS: Sodium Chloride 0.9% 1,000 ML IV SCH (18:26)
--- NOTE | 2017-08-06 18:28 | PCM.HP ---
H&P History of Present Illness - General Date of Service: 08/06/17 Admit Problem/Dx: Admission Diagnosis/Problem Admission Diagnosis/Problem Hyperglycemia, constipation Source of Information: Patient History Limitations: Reports: No Limitations - History of Present Illness Initial Comments - Free Text/Narative: 57-year-old female with hypertension, hypercholesterolemia, atrial fibrillation and colon cancer requiring chemotherapy that is being admitted with hyperglycemia, and abdominal pain secondary to constipation. Patient finished her most recent round of chemotherapy on Wednesday and notes that usually following chemotherapy she has diarrhea but has had constipation for the past 5 days. Patient believes this is secondary to the opioids that she is currently taking which is Dilaudid. Typically the patient takes Dilaudid 2 mg daily which is prescribed by Dr. Hyde, oncologist, in [place], [place]. She states that with this round of chemotherapy, she had increased pain and started taking 2, 2 mg Dilaudid tabs every 4 hours. Patient has drank prune juice and has tried enemas 2 and also Dulcolax which has not helped relieve her constipation. She believes that if she were able to have a bowel movement, that her abdominal pain would improve. Patient also notes that with this increased constipation, that she has decreased bladder function and has incontinence when standing. This is not typical for her. Patient also notes some rectal bleeding but does note that she has a history of hemorrhoids and again, believes that the constipation is aggravating her hemorrhoids and leading to the bloody stools. She does have an elevated white blood cell count per the CBC done in the ER, but the patient notes that she recently finished Neulasta on Wednesday and that this is increasing her white count. Patient has been afebrile and currently denies any chest pain, palpitations, shortness of breath, wheezing, cough, headache, dizziness, numbness/tingling/weakness in the upper and lower cervical bilaterally. Patient's appetite has been unchanged. ER course: Abdominal x-ray shows a nonobstructive bowel gas pattern with stool within the colon and the rectum. Rectal exam done by the ER physician is positive for hard stool in the rectum. CBC shows a white blood cell count of 32,000 with her hemoglobin, hematocrit and platelets all within normal limits. Her BUN is slightly elevated at 24 but her creatinine is within normal limits. ALP is elevated at 214. Patient has had a cholecystectomy. UA is unremarkable. Patient was given a one-time dose of IV Dilaudid secondary to abdominal pain in the ER and also given a normal saline bolus. Hemoccult is pending. Patient's glucose was 363. Patient notes that her sugars usually go up after chemotherapy. She typically takes NovoLog and Lantus at home. Bilateral Lower Abdomen Pain Score (Numeric/FACES): 10 Sacral Pain Score (Numeric/FACES): 7 - Related Data Allergies/Adverse Reactions: Allergies Allergy/AdvReac Type Severity Reaction Status Date / Time hydrocodone Allergy Unknown Hives Verified 08/06/17 13:24 ibuprofen Allergy Unknown Hives Verified 08/06/17 13:24 morphine Allergy Unknown Seizure Verified 08/06/17 13:24 nitroglycerin Allergy Unknown Difficulty Verified 08/06/17 13:24 Breathing caffeine Allergy Vomiting Verified 08/06/17 13:24 diphenhydramine HCl Allergy Excitabilit Verified 08/06/17 13:24 [From [facility]] y Home Medications: Home Meds Diltiazem HCl [Diltiazem 24Hr ER] 360 mg PO BEDTIME 05/09/14 [History] Hydrochlorothiazide 12.5 mg PO DAILY 05/09/14 [History] atorvaSTATin Calcium [Atorvastatin Calcium] 20 mg PO BEDTIME 05/09/14 [History] metFORMIN [Glucophage] 1,000 mg PO BIDMEALS 05/09/14 [History] HYDROmorphone [Dilaudid] 1 - 2 tab PO Q4H PRN 10/27/15 [History] Loratadine 10 mg PO DAILY 10/27/15 [History] Valsartan 160 mg PO DAILY 10/27/15 [History] LORazepam [Ativan] 1 mg PO QID PRN 12/26/15 [History] Insulin Aspart [NovoLOG] 14 unit SUBCUT TIDAC pen 04/09/17 [Rx] Ondansetron [Zofran ODT] 4 mg PO Q4H PRN #14 tab.dis 05/07/17 [Rx] Insulin Glarg,Human.Rec.Analog [LantUS Solostar] 28 units SUBCUT BEDTIME [History] Pantoprazole [ProTONIX] 40 mg PO BID 08/06/17 [History] Past Medical History HEENT History: Reports: Impaired Vision Cardiovascular History: Reports: High Cholesterol, Hypertension Respiratory History: Reports: None Gastrointestinal History: Reports: GERD Other Gastrointestinal History: hernia, colon CA Genitourinary History: Reports: None [employer] History: Reports: , Other (See Below) Other OB/BYN History: x2 Musculoskeletal History: Reports: None Neurological History: Reports: None Psychiatric History: Reports: Anxiety, Depression Endocrine/Metabolic History: Reports: Diabetes, Type II Hematologic History: Reports: None Immunologic History: Reports: None Oncologic (Cancer) History: Reports: Colon, Liver, Metastatic Dermatologic History: Reports: None - Infectious Disease History Infectious Disease History: Reports: Measles - Past Surgical History HEENT Surgical History: Reports: Adenoidectomy, Tonsillectomy GI Surgical History: Reports: Cholecystectomy, Colon, Hernia Repair/Other Other GI Surgeries/Procedures: colectomy x2 Female Surgical History: Reports: Hysterectomy, Salpingo-Oophorectomy Endocrine Surgical History: Reports: None Musculoskeletal Surgical History: Reports: None, Other (See Below) Other Musculoskeletal Surgeries/Procedures:: rigth knee pain Oncologic Surgical History: Reports: Other (See Below) Other Oncologic Surgeries/Procedures: presently on chemo treatment Dermatological Surgical History: Reports: None Social & Family History - Family History Family Medical History: Noncontributory GI: Reports: None - Tobacco Use Smoking Status *Q: Never Smoker Second Hand Smoke Exposure: Yes - Caffeine Use Caffeine Use: Reports: None - Alcohol Use Days Per Week of Alcohol Use: 0 - Recreational Drug Use Recreational Drug Use: No H&P Review of Systems - Review of Systems: Review Of Systems: See Below General: Reports: Weakness, Fatigue HEENT: Reports: No Symptoms Pulmonary: Reports: No Symptoms Cardiovascular: Reports: No Symptoms Gastrointestinal: Reports: Abdominal Pain (Lower abdomen), Constipation Genitourinary: Reports: Incontinence Musculoskeletal: Reports: No Symptoms Skin: Reports: Other (Notes some pain in the sacral area.) Psychiatric: Reports: No Symptoms Neurological: Reports: No Symptoms Hematologic/Lymphatic: Reports: No Symptoms Immunologic: Reports: No Symptoms Exam - Exam Exam: See Below - Vital Signs Vital Signs: Last Vital Signs Temp 98.4 F 08/06/17 16:00 Pulse 79 08/06/17 17:00 Resp 18 08/06/17 16:00 BP 162/93 H 08/06/17 17:00 Pulse Ox 100 08/06/17 18:10 Weight: 153 lb 14.122 oz - Exam General: Alert, Oriented, Cooperative HEENT: Conjunctiva Clear, Hearing Intact, Mucosa Moist & [place], Nares Patent, Normal Nasal Septum Neck: Supple, Trachea Midline, 2 Lungs: Clear to Auscultation, Normal Respiratory Effort Cardiovascular: Regular Rate, Regular Rhythm GI/Abdominal Exam: Normal Bowel Sounds, Soft, No Organomegaly, No Distention, No Abnormal Bruit, No Mass, Tender (Mild tenderness with palpation in the lower part of the abdomen bilaterally.) Extremities: Normal Inspection, Normal Range of Motion, Non-Tender, No Pedal Edema, Normal Capillary Refill Peripheral Pulses: 2+: Radial (L), Radial (R), Posterior Tibial (L), Posterior Tibial (R) Skin: Warm, Dry, Intact Neuro Extensive - Mental Status: Alert, Oriented x3, Normal Mood/Affect, Normal Cognition Psychiatric: Alert, Normal Affect, Normal Mood - Patient Data Lab Results Last 24 hrs: Laboratory Results - last 24 hr 08/06/17 Range/Units 17:27 POC Glucose 223 H (60-110) mg/dL Result Diagrams: 08/06/17 13:30 08/06/17 13:30 *Q Meaningful Use (ADM) - VTE *Q VTE Criteria *Q: - Stroke *Q Stroke Criteria *Q: - AMI *Q AMI Criteria *Q: - Problem List (1) Constipation SNOMED Code(s): 12241143 ICD Code: K59.00 - CONSTIPATION, UNSPECIFIED Status: Acute Current Visit : Yes (2) Hyperglycemia SNOMED Code(s): 97002853 ICD Code: R73.9 - HYPERGLYCEMIA, UNSPECIFIED Status: Acute Current Visit : Yes (3) Abdominal pain SNOMED Code(s): 00656974 ICD Code: R10.9 - UNSPECIFIED ABDOMINAL PAIN Status: Acute Current Visit : No Onset Date: 12/02/14 Problem List Initiated/Reviewed/Updated: Yes Orders Last 24hrs: Active Orders 24 hr Category Date Time Status Antiembolic Devices [RC] PER UNIT ROUTINE Care 08/06/17 17:15 Active Blood Glucose Check, Bedside [RC] QIDACANDBED Care 08/06/17 17:13 Active Cardiac Monitoring [RC] . DIRECTED Care 08/06/17 17:20 Active Height and Weight [RC] DAILY Care 08/06/17 17:13 Active Intake and Output [RC] Q4H Care 08/06/17 17:14 Active Notify Provider Vital Signs [RC] ASDIRECTED Care 08/06/17 17:14 Active Oxygen Therapy [RC] PRN Care 08/06/17 16:47 Active Oxygen Therapy [RC] PRN Care 08/06/17 17:13 Inactive Pulse Oximetry [RC] PRN Care 08/06/17 17:14 Active Telemetry Monitoring [Cardiac Monitoring] [RC] . Care 08/06/17 17:23 Active DIRECTED Up With Assistance [RC] ASDIRECTED Care 08/06/17 17:13 Active VTE/DVT Education [RC] PER UNIT ROUTINE Care 08/06/17 16:47 Active VTE/DVT Education [RC] PER UNIT ROUTINE Care 08/06/17 17:13 Inactive Vital Signs [RC] Q4H Care 08/06/17 16:47 Active Vital Signs [RC] Q4H Care 08/06/17 17:13 Inactive [employer] Diet [DIET] Diet 08/06/17 Breakfast Active BASIC METABOLIC PANEL,BMP [CHEM] AM Lab 08/07/17 05:11 Ordered BASIC METABOLIC PANEL,BMP [CHEM] AM Lab 08/08/17 05:11 Ordered BASIC METABOLIC PANEL,BMP [CHEM] AM Lab 08/09/17 05:11 Ordered CBC WITH AUTO DIFF [HEME] AM Lab 08/07/17 05:11 Ordered CBC WITH AUTO DIFF [HEME] AM Lab 08/08/17 05:11 Ordered CBC WITH AUTO DIFF [HEME] AM Lab 08/09/17 05:11 Ordered MAGNESIUM [CHEM] AM Lab 08/07/17 05:11 Ordered PHOSPHORUS [CHEM] AM Lab 08/07/17 05:11 Ordered Diltiazem [Cardizem CD] Med 08/06/17 21:00 Active 360 mg PO BEDTIME Docusate Sodium/Sennosides [Senokot-S] Med 08/06/17 17:13 Active 1 each PO BID PRN Enoxaparin [Lovenox] Med 08/06/17 17:15 Active 40 mg SUBCUT Q24H HYDROmorphone [Dilaudid] Med 08/06/17 17:24 Active 2 mg PO Q8H PRN Hydrochlorothiazide Med 08/07/17 09:00 Active 12.5 mg PO DAILY Insulin Aspart [NovoLOG] Med 08/06/17 17:30 Active See Protocol SUBCUT TIDAC LORazepam [Ativan] Med 08/06/17 17:18 Active 1 mg PO QID PRN Loratadine [Claritin] Med 08/07/17 09:00 Active 10 mg PO DAILY Ondansetron [Zofran] Med 08/06/17 17:13 Active 4 mg IVPUSH Q4H PRN Pantoprazole [ProTONIX] Med 08/06/17 17:30 Active 40 mg PO BIDAC Polyethylene Glycol 3350 [MiraLAX] Med 08/06/17 17:13 Active 17 gm PO DAILY PRN Sodium Chloride 0.9% [Normal Saline] 1,000 ml Med 08/06/17 17:15 Active IV ASDIRECTED Valsartan [Diovan] Med 08/07/17 09:00 Active 160 mg PO DAILY atorvaSTATin [Lipitor] Med 08/06/17 21:00 Active 20 mg PO BEDTIME metFORMIN [Glucophage] Med 08/07/17 08:00 Active 1,000 mg PO BIDMEALS Sequential Compression Device [OM.PC] Per Unit Routine Oth 08/06/17 17:14 Ordered Resuscitation Status Routine Resus Stat 08/06/17 16:46 Ordered Medication Orders Atorvastatin Calcium (Lipitor) 20 mg PO BEDTIME MARIA T Diltiazem HCl (Cardizem Cd) 360 mg PO BEDTIME MARIA T Enoxaparin Sodium (Lovenox) 40 mg SUBCUT Q24H MARIA T Hydrochlorothiazide (Hydrochlorothiazide) 12.5 mg PO DAILY MARIA T Hydromorphone HCl (Dilaudid) 2 mg PO Q8H PRN PRN Reason: Pain Sodium Chloride (Normal Saline) 1,000 mls @ 125 mls/hr IV ASDIRECTED MARIA T Insulin Aspart (Novolog) 0 unit SUBCUT TIDAC MARIA T PRN Reason: Protocol Loratadine (Claritin) 10 mg PO DAILY MARIA T Lorazepam (Ativan) 1 mg PO QID PRN PRN Reason: Anxiety Metformin HCl (Glucophage) 1,000 mg PO BIDMEALS MARIA T Ondansetron HCl (Zofran) 4 mg IVPUSH Q4H PRN PRN Reason: Nausea Pantoprazole Sodium (Protonix) 40 mg PO BIDAC MARIA T Polyethylene Glycol (Miralax) 17 gm PO DAILY PRN PRN Reason: Constipation Senna/Docusate Sodium (Senokot-S) 1 each PO BID PRN PRN Reason: Constipation Valsartan (Diovan) 160 mg PO DAILY [facility] Assessment/Plan Comment:: 57 year old female with colon cancer undergoing chemotherapy that is being admitted with abdominal pain secondary to constipation. Patient also has hyperglycemia following chemotherapy treatment. #1. Abdominal pain secondary to constipation. Most likely opioid induced: -Patient will be started on MiraLAX and docusate-Senna S daily. -Abdominal x-ray shows nonobstructive bowel pattern. -Patient does have an elevated white blood cell count but this is most likely secondary to recently finishing Neulasta #2. Hyperglycemia, type 2 diabetes: -Patient will be placed on NovoLog sliding scale. -Patient will resume her home medication of metformin. -Diabetic diet. -Frequent blood sugar checks. All home medications will be restarted for her hypercholesterolemia, hypertension and atrial fibrillation. DVT prophylaxis: SCDs, Lovenox. Disposition: 2-4 days pending improvement.
[2017-08-06] MEDS: Polyethylene Glycol 3350 Powder 17 GM Packet PO PRN (18:32)
[2017-08-06] MEDS ORDERED: Cocoa Butter/Phenylephrine Rectal Supp RECTAL ONE (19:28)
[2017-08-06] MEDS: Diltiazem 180 MG Cap.CD PO SCH (20:54)
[2017-08-06] MEDS: atorvaSTATin 20 MG Tab PO SCH (20:54)
[2017-08-06] MEDS: HYDROmorphone 2 MG Tab PO PRN (21:03)
[2017-08-07] MEDS: Sodium Chloride 0.9% 1,000 ML IV SCH ×3 (02:48→20:11)
[2017-08-07] MEDS: LORazepam 1 MG Tab PO PRN (02:57)
[2017-08-07] MEDS: HYDROmorphone 2 MG Tab PO PRN ×2 (06:35→14:37)
[2017-08-07] MEDS: Pantoprazole 40 MG Tab.CR PO SCH ×2 (06:35→17:22)
[2017-08-07] MEDS: Insulin Aspart 100 Units/ML 3 ML Pen SUBCUT SCH ×3 (06:42→18:17)
[2017-08-07 06:51] LABS: CHLORIDE,CL 106 mmol/L (98-110); SODIUM,NA 134 mmol/L (136-146)
[2017-08-07] MEDS: Loratadine 10 MG Tab PO SCH (08:46)
[2017-08-07] MEDS: Hydrochlorothiazide 12.5 MG Cap PO SCH (08:47)
[2017-08-07] MEDS: metFORMIN 500 MG Tab PO SCH ×3 (08:47→17:23)
[2017-08-07] MEDS ORDERED: Bisacodyl 10 MG Supp RECTAL PRN (09:01)
[2017-08-07] MEDS ORDERED: Docusate Sodium 100 MG Cap PO PRN (09:01)
--- NOTE | 2017-08-07 09:21 | PCM.PN ---
- Review of Systems Systems Review Comment:: reports swollen rectal pain, had small bowel movement yesterday, - Patient Data Vitals - Most Recent: Last Vital Signs Temp 36.1 C 08/07/17 08:00 Pulse 71 08/07/17 08:00 Resp 14 08/07/17 08:00 BP 155/70 H 08/07/17 08:46 Pulse Ox 97 08/07/17 08:00 Weight - Most Recent: 69.8 kg I&O - Last 24 Hours: Intake & Output 08/06/17 08/07/17 08/07/17 22:59 06:59 14:59 Intake Total 50 1290 Output Total 150 550 Balance -100 740 Lab Results Last 24 Hours: Laboratory Results - last 24 hr 08/06/17 08/07/17 08/07/17 Range/Units 17:27 06:05 06:05 WBC 15.20 H (4.0-11.0) K/uL RBC 3.27 L (4.30-5.90) M/uL Hgb 10.5 L (12.0-16.0) g/dL Hct 31.4 L (36.0-46.0) % MCV 96.0 (80.0-98.0) fL MCH 32.1 H (27.0-32.0) pg MCHC 33.4 (31.0-37.0) g/dL RDW Std Deviation 59.2 (28.0-62.0) fl RDW Coeff of Ej 17 H (11.0-15.0) % Plt Count 164 (150-400) K/uL MPV 9.50 (7.40-12.00) fL Add Manual Diff YES Neutrophils % (Manual) 75 (48.0-80.0) % Band Neutrophils % 2 % Lymphocytes % (Manual) 23 (16.0-40.0) % Nucleated RBC % 1.8 /100WBC Absolute Seg Neuts 11.4 H (1.4-5.7) Band Neutrophils # 0.3 Lymphocytes # (Manual) 3.5 H (0.6-2.4) Nucleated RBCs # 0 K/uL Sodium 134 L (136-146) mmol/L Potassium 3.9 (3.5-5.1) mmol/L Chloride 106 (98-110) mmol/L Carbon Dioxide 20 L (21-31) mmol/L BUN 16 (6.0-23.0) mg/dL Creatinine 0.7 (0.6-1.5) mg/dL Est Cr Clr Drug Dosing 70.98 mL/min Estimated GFR (MDRD) > 60.0 ml/min Glucose 278 H (60-110) mg/dL POC Glucose 223 H (60-110) mg/dL Calcium 8.0 L (8.8-10.8) mg/dL Phosphorus 2.7 (2.4-4.7) mg/dL Magnesium 1.4 L (1.5-2.3) mEq/L 08/07/17 Range/Units 06:10 WBC (4.0-11.0) K/uL RBC (4.30-5.90) M/uL Hgb (12.0-16.0) g/dL Hct (36.0-46.0) % MCV (80.0-98.0) fL MCH (27.0-32.0) pg MCHC (31.0-37.0) g/dL RDW Std Deviation (28.0-62.0) fl RDW Coeff of Ej (11.0-15.0) % Plt Count (150-400) K/uL MPV (7.40-12.00) fL Add Manual Diff Neutrophils % (Manual) (48.0-80.0) % Band Neutrophils % % Lymphocytes % (Manual) (16.0-40.0) % Nucleated RBC % /100WBC Absolute Seg Neuts (1.4-5.7) Band Neutrophils # Lymphocytes # (Manual) (0.6-2.4) Nucleated RBCs # K/uL Sodium (136-146) mmol/L Potassium (3.5-5.1) mmol/L Chloride (98-110) mmol/L Carbon Dioxide (21-31) mmol/L BUN (6.0-23.0) mg/dL Creatinine (0.6-1.5) mg/dL Est Cr Clr Drug Dosing mL/min Estimated GFR (MDRD) ml/min Glucose (60-110) mg/dL POC Glucose 231 H (60-110) mg/dL Calcium (8.8-10.8) mg/dL Phosphorus (2.4-4.7) mg/dL Magnesium (1.5-2.3) mEq/L Med Orders - Current: Current Medications Atorvastatin Calcium (Lipitor) 20 mg PO BEDTIME [facility] Last Admin: 08/06/17 20:54 Dose: 20 mg Bisacodyl (Dulcolax) 10 mg RECTAL DAILY PRN PRN Reason: Constipation [place] Butter/Phenylephrine (Preparation H Supp) 1 each RECTAL DAILY PRN PRN Reason: rectal pain Diltiazem HCl (Cardizem Cd) 360 mg PO BEDTIME [facility] Last Admin: 08/06/17 20:54 Dose: 360 mg Docusate Sodium (Colace) 100 mg PO DAILY PRN PRN Reason: Constipation Enoxaparin Sodium (Lovenox) 40 mg SUBCUT Q24H [facility] Last Admin: 08/06/17 18:24 Dose: 40 mg Hydrochlorothiazide (Hydrochlorothiazide) 12.5 mg PO DAILY [facility] Last Admin: 08/07/17 08:47 Dose: 12.5 mg Hydromorphone HCl (Dilaudid) 2 mg PO Q8H PRN PRN Reason: Pain Last Admin: 08/07/17 06:35 Dose: 2 mg Sodium Chloride (Normal Saline) 1,000 mls @ 125 mls/hr IV ASDIRECTED [facility] Last Admin: 08/07/17 02:48 Dose: 125 mls/hr Insulin Aspart (Novolog) 0 unit SUBCUT TIDAC [facility] PRN Reason: Protocol Last Admin: 08/07/17 06:42 Dose: 4 units Loratadine (Claritin) 10 mg PO DAILY [facility] Last Admin: 08/07/17 08:46 Dose: 10 mg Lorazepam (Ativan) 1 mg PO QID PRN PRN Reason: Anxiety Last Admin: 08/07/17 02:57 Dose: 1 mg Metformin HCl (Glucophage) 1,000 mg PO BIDMEALS [facility] Last Admin: 08/07/17 08:55 Dose: Not Given Ondansetron HCl (Zofran) 4 mg IVPUSH Q4H PRN PRN Reason: Nausea Pantoprazole Sodium (Protonix) 40 mg PO BIDAC [facility] Last Admin: 08/07/17 06:35 Dose: 40 mg Polyethylene Glycol (Miralax) 17 gm PO DAILY PRN PRN Reason: Constipation Last Admin: 08/06/17 18:32 Dose: 17 gm Senna/Docusate Sodium (Senokot-S) 1 each PO BID PRN PRN Reason: Constipation Valsartan (Diovan) 160 mg PO DAILY MARIA T Last Admin: 08/07/17 08:46 Dose: 160 mg Discontinued Medications [place] Butter/Phenylephrine (Preparation H Supp) 1 each RECTAL ONETIME ONE Stop: 08/06/17 19:29 Last Admin: 08/06/17 20:53 Dose: 1 each Hydromorphone HCl (Dilaudid) 1 mg IV ONETIME ONE Stop: 08/06/17 13:34 Last Admin: 08/06/17 14:36 Dose: 1 mg Sodium Chloride (Normal Saline) 1,000 mls @ 500 mls/hr IV STAT ONE Stop: 08/06/17 15:32 Last Admin: 08/06/17 14:05 Dose: 500 mls/hr - Exam General: Alert, Oriented Lungs: Clear to Auscultation, Normal Respiratory Effort Cardiovascular: Regular Rate, Regular Rhythm GI/Abdominal Exam: Other (hemarroids) Extremities: No Pedal Edema Skin: Warm, Dry, Intact Neurological: No New Focal Deficit - Problem List Review Problem List Initiated/Reviewed/Updated: Yes - My Orders Last 24 Hours: My Active Orders 08/07/17 09:01 Bisacodyl [Dulcolax] 10 mg RECTAL DAILY PRN [place] Butter/Phenylephrine [Preparation H Supp] 1 each RECTAL DAILY PRN Docusate Sodium [Colace] 100 mg PO DAILY PRN - Plan Plan:: 57 year old female with colon cancer undergoing chemotherapy that is being admitted with abdominal pain secondary to constipation. abdominal pain is improved however pain for hemorrhoids is severe. patient is on hemorrhoid suppository and stool softeners. will try to decrease dilaudid use due to constipating side effects.
[2017-08-07] MEDS: Acetaminophen 325 MG Tab PO PRN ×2 (09:39→18:18)
[2017-08-07] MEDS ORDERED: Magnesium Sulfate/Water 2 GM in Premix Bag 1 BAG IV ONE (10:50)
[2017-08-07] MEDS: Cocoa Butter/Phenylephrine Rectal Supp RECTAL PRN (11:42)
[2017-08-07] MEDS: Enoxaparin 40 MG/0.4 ML Syringe SUBCUT SCH (17:22)
[2017-08-07] MEDS: Polyethylene Glycol 3350 Powder 17 GM Packet PO PRN (18:18)
[2017-08-07] MEDS: atorvaSTATin 20 MG Tab PO SCH (22:04)
[2017-08-07] MEDS: Diltiazem 180 MG Cap.CD PO SCH (22:04)
[2017-08-08] MEDS: LORazepam 1 MG Tab PO PRN (00:03)
[2017-08-08] MEDS: HYDROmorphone 2 MG Tab PO PRN ×2 (02:56→10:37)
[2017-08-08] MEDS: Sodium Chloride 0.9% 1,000 ML IV SCH ×3 (02:57→18:29)
[2017-08-08 06:13] LABS: CHLORIDE,CL 104 mmol/L (98-110); SODIUM,NA 133 mmol/L (136-146)
[2017-08-08] MEDS: Pantoprazole 40 MG Tab.CR PO SCH ×2 (06:38→17:28)
[2017-08-08] MEDS: Acetaminophen 325 MG Tab PO PRN ×2 (06:40→17:16)
[2017-08-08] MEDS: Insulin Aspart 100 Units/ML 3 ML Pen SUBCUT SCH ×3 (07:34→17:33)
[2017-08-08] MEDS: Loratadine 10 MG Tab PO SCH (09:20)
[2017-08-08] MEDS: metFORMIN 500 MG Tab PO SCH ×2 (09:20→17:28)
[2017-08-08] MEDS: Hydrochlorothiazide 12.5 MG Cap PO SCH (09:20)
--- NOTE | 2017-08-08 11:23 | PCM.PN ---
- General Info Date of Service: 08/08/17 Subjective Update: 57-year-old female with a history of colon cancer receiving chemotherapy that's currently on our service secondary to abdominal pain believed to be secondary to constipation as a result of opioid therapy. Patient's last bowel movement was on 06 August. She also complains of rectal pain. Denies any fevers, chills nausea or vomiting. Denies any new symptoms. - Review of Systems General: Reports: Other (History of present illness) - Patient Data Vitals - Most Recent: Last Vital Signs Temp 36.1 C 08/08/17 10:00 Pulse 82 08/08/17 10:00 Resp 16 08/08/17 10:00 BP 122/61 08/08/17 10:00 Pulse Ox 98 08/08/17 10:00 Weight - Most Recent: 71.1 kg I&O - Last 24 Hours: Intake & Output 08/07/17 08/08/17 08/08/17 23:59 06:59 14:59 Intake Total Output Total Balance Lab Results Last 24 Hours: Laboratory Results - last 24 hr 08/07/17 08/07/17 08/08/17 Range/Units 11:26 17:20 05:32 WBC 6.75 (4.0-11.0) K/uL RBC 3.38 L (4.30-5.90) M/uL Hgb 10.7 L (12.0-16.0) g/dL Hct 32.0 L (36.0-46.0) % MCV 94.7 (80.0-98.0) fL MCH 31.7 (27.0-32.0) pg MCHC 33.4 (31.0-37.0) g/dL RDW Std Deviation 56.6 (28.0-62.0) fl RDW Coeff of Ej 16 H (11.0-15.0) % Plt Count 101 L (150-400) K/uL MPV 9.40 (7.40-12.00) fL Add Manual Diff YES Neutrophils % (Manual) 65 (48.0-80.0) % Band Neutrophils % 1 % Lymphocytes % (Manual) 31 (16.0-40.0) % Monocytes % (Manual) 3 (0.0-15.0) % Nucleated RBC % 0.0 /100WBC Absolute Seg Neuts 4.4 (1.4-5.7) Band Neutrophils # 0.1 Lymphocytes # (Manual) 2.1 (0.6-2.4) Monocytes # (Manual) 0.2 (0.0-0.8) Nucleated RBCs # 0 K/uL Sodium (136-146) mmol/L Potassium (3.5-5.1) mmol/L Chloride (98-110) mmol/L Carbon Dioxide (21-31) mmol/L BUN (6.0-23.0) mg/dL Creatinine (0.6-1.5) mg/dL Est Cr Clr Drug Dosing mL/min Estimated GFR (MDRD) ml/min Glucose (60-110) mg/dL POC Glucose 214 H 187 H (60-110) mg/dL Calcium (8.8-10.8) mg/dL 08/08/17 08/08/17 Range/Units 05:32 07:20 WBC (4.0-11.0) K/uL RBC (4.30-5.90) M/uL Hgb (12.0-16.0) g/dL Hct (36.0-46.0) % MCV (80.0-98.0) fL MCH (27.0-32.0) pg MCHC (31.0-37.0) g/dL RDW Std Deviation (28.0-62.0) fl RDW Coeff of Ej (11.0-15.0) % Plt Count (150-400) K/uL MPV (7.40-12.00) fL Add Manual Diff Neutrophils % (Manual) (48.0-80.0) % Band Neutrophils % % Lymphocytes % (Manual) (16.0-40.0) % Monocytes % (Manual) (0.0-15.0) % Nucleated RBC % /100WBC Absolute Seg Neuts (1.4-5.7) Band Neutrophils # Lymphocytes # (Manual) (0.6-2.4) Monocytes # (Manual) (0.0-0.8) Nucleated RBCs # K/uL Sodium 133 L (136-146) mmol/L Potassium 3.8 (3.5-5.1) mmol/L Chloride 104 (98-110) mmol/L Carbon Dioxide 21 (21-31) mmol/L BUN 7 (6.0-23.0) mg/dL Creatinine 0.7 (0.6-1.5) mg/dL Est Cr Clr Drug Dosing 70.98 mL/min Estimated GFR (MDRD) > 60.0 ml/min Glucose 252 H (60-110) mg/dL POC Glucose 213 H (60-110) mg/dL Calcium 8.0 L (8.8-10.8) mg/dL Med Orders - Current: Current Medications Acetaminophen (Tylenol) 325 mg PO Q4H PRN PRN Reason: Pain Last Admin: 08/08/17 06:40 Dose: 325 mg Atorvastatin Calcium (Lipitor) 20 mg PO BEDTIME [facility] Last Admin: 08/07/17 22:04 Dose: 20 mg Bisacodyl (Dulcolax) 10 mg RECTAL DAILY PRN PRN Reason: Constipation Last Admin: 08/08/17 09:18 Dose: 10 mg [place] Butter/Phenylephrine (Preparation H Supp) 1 each RECTAL DAILY PRN PRN Reason: rectal pain Last Admin: 08/07/17 11:42 Dose: 1 each Diltiazem HCl (Cardizem Cd) 360 mg PO BEDTIME [facility] Last Admin: 08/07/17 22:04 Dose: 360 mg Docusate Sodium (Colace) 100 mg PO DAILY PRN PRN Reason: Constipation Last Admin: 08/08/17 06:43 Dose: 100 mg Enoxaparin Sodium (Lovenox) 40 mg SUBCUT Q24H [facility] Last Admin: 08/07/17 17:22 Dose: 40 mg Hydrochlorothiazide (Hydrochlorothiazide) 12.5 mg PO DAILY [facility] Last Admin: 08/08/17 09:20 Dose: 12.5 mg Hydromorphone HCl (Dilaudid) 2 mg PO Q8H PRN PRN Reason: Pain Last Admin: 08/08/17 10:37 Dose: 2 mg Sodium Chloride (Normal Saline) 1,000 mls @ 125 mls/hr IV ASDIRECTED [facility] Last Admin: 08/08/17 10:39 Dose: 125 mls/hr Insulin Aspart (Novolog) 0 unit SUBCUT TIDAC [facility] PRN Reason: Protocol Last Admin: 08/08/17 07:34 Dose: 4 units Loratadine (Claritin) 10 mg PO DAILY [facility] Last Admin: 08/08/17 09:20 Dose: 10 mg Lorazepam (Ativan) 1 mg PO QID PRN PRN Reason: Anxiety Last Admin: 08/08/17 00:03 Dose: 1 mg Metformin HCl (Glucophage) 1,000 mg PO BIDMEALS [facility] Last Admin: 08/08/17 09:20 Dose: 1,000 mg Ondansetron HCl (Zofran) 4 mg IVPUSH Q4H PRN PRN Reason: Nausea Pantoprazole Sodium (Protonix) 40 mg PO BIDAC [facility] Last Admin: 08/08/17 06:38 Dose: 40 mg Polyethylene Glycol (Miralax) 17 gm PO DAILY PRN PRN Reason: Constipation Last Admin: 08/07/17 18:18 Dose: 17 gm Senna/Docusate Sodium (Senokot-S) 1 each PO BID PRN PRN Reason: Constipation Last Admin: 08/07/17 09:39 Dose: 1 each Valsartan (Diovan) 160 mg PO DAILY [facility] Last Admin: 08/08/17 09:20 Dose: 160 mg Discontinued Medications [place] Butter/Phenylephrine (Preparation H Supp) 1 each RECTAL ONETIME ONE Stop: 08/06/17 19:29 Last Admin: 08/06/17 20:53 Dose: 1 each Hydromorphone HCl (Dilaudid) 1 mg IV ONETIME ONE Stop: 08/06/17 13:34 Last Admin: 08/06/17 14:36 Dose: 1 mg Sodium Chloride (Normal Saline) 1,000 mls @ 500 mls/hr IV STAT ONE Stop: 08/06/17 15:32 Last Admin: 08/06/17 14:05 Dose: 500 mls/hr Magnesium Sulfate 2 gm/ Premix 50 mls @ 50 mls/hr IV ONETIME ONE Stop: 08/07/17 11:49 Last Admin: 08/07/17 11:12 Dose: 50 mls/hr - Exam General: Alert, Oriented, Cooperative Lungs: Clear to Auscultation Cardiovascular: Regular Rate, Irregular Rhythm GI/Abdominal Exam: Normal Bowel Sounds, Non-Tender Extremities: Normal Inspection, Non-Tender, Normal Capillary Refill Skin: Warm, Intact - Problem List Review Problem List Initiated/Reviewed/Updated: Yes - Assessment Assessment:: Assessment #1. Abdominal pain secondary to constipation #2. History of colon cancer 3. History of hypertension, A. fib, hyperlipidemia #4. Mild hyponatremia Plan #1. Magnesium citrate 1 bottle #2. Mineral enema #3. Consider repeat abdominal x-rays these don't help her have a bowel movement.
[2017-08-08] MEDS ORDERED: Magnesium Citrate Solution 296 ML Bottle PO ONE (11:24)
[2017-08-08] MEDS: Enoxaparin 40 MG/0.4 ML Syringe SUBCUT SCH (17:26)
[2017-08-08] MEDS: Cocoa Butter/Phenylephrine Rectal Supp RECTAL PRN (18:25)
[2017-08-08] MEDS: Diltiazem 180 MG Cap.CD PO SCH (20:40)
[2017-08-08] MEDS: atorvaSTATin 20 MG Tab PO SCH (20:40)
[2017-08-09] MEDS: HYDROmorphone 2 MG Tab PO PRN ×2 (01:34→11:10)
[2017-08-09] MEDS: LORazepam 1 MG Tab PO PRN (01:35)
[2017-08-09] MEDS: Sodium Chloride 0.9% 1,000 ML IV SCH (02:56)
[2017-08-09 06:08] LABS: CHLORIDE,CL 105 mmol/L (98-110); SODIUM,NA 135 mmol/L (136-146)
[2017-08-09] MEDS: Pantoprazole 40 MG Tab.CR PO SCH (06:36)
[2017-08-09] MEDS: Insulin Aspart 100 Units/ML 3 ML Pen SUBCUT SCH (07:16)
[2017-08-09] MEDS: Loratadine 10 MG Tab PO SCH (08:21)
[2017-08-09] MEDS: Acetaminophen 325 MG Tab PO PRN (08:21)
[2017-08-09] MEDS: metFORMIN 500 MG Tab PO SCH (08:22)
[2017-08-09] MEDS: Hydrochlorothiazide 12.5 MG Cap PO SCH (08:22)
[2017-08-09 08:31] VITALS: BP 148/83
--- NOTE | 2017-08-11 10:36 | PCM.DCSUM1 ---
<Meliton Linares - Last Filed: 08/11/17 10:28> Discharge Summary - Hospital Course Free Text/Narrative:: Admission diagnosis: #1. Abdominal pain secondary to constipation #2. Hyperglycemia #3. Hemorrhoids Discharge diagnosis: #1. Abdominal pain secondary to constipation, improved #2. Hyperglycemia, improved #3. Hemorrhoids 57 year old female with colon cancer that was admitted with abdominal pain secondary to constipation as well as hyperglycemia and hemorrhoids. Patient's white count was elevated on admission at 32,000 but returned within normal limits at the time of discharge. Prior to admission the patient had just finished a course of Neulasta secondary to her colon cancer and this was the suspected reason that her white count was elevated. Patient was afebrile during admission. Abdominal x-ray showed a nonobstructive bowel gas pattern with no acute findings. Urinalysis was unremarkable. Urine culture was negative. Blood culture 4 days was negative. Patient was given multiple medications to help with her constipation and by the time of discharge had had 6 bowel movements. Her abdominal pain improved slightly but she continued to have abdominal pain which is baseline for her. Her hyperglycemia also improved when she was placed on NovoLog sliding scale. She was continued on metformin. She notes that her hyperglycemia likely was secondary to recently finishing chemotherapy which is common for her. Patient is also given Preparation H suppositories for her hemorrhoids. At the time of discharge, the patient was tolerating oral intake and ambulating with assistance and voiding appropriately. - Discharge Data Discharge Date: 08/09/17 Discharge Disposition: Home, Self-Care 01 Condition: Stable - Discharge Diagnosis/Problem(s) (1) Constipation SNOMED Code(s): 00612692 ICD Code: K59.00 - CONSTIPATION, UNSPECIFIED Status: Acute (2) Hyperglycemia SNOMED Code(s): 66777169 ICD Code: R73.9 - HYPERGLYCEMIA, UNSPECIFIED Status: Acute (3) Abdominal pain SNOMED Code(s): 54843851 ICD Code: R10.9 - UNSPECIFIED ABDOMINAL PAIN Status: Acute Onset Date: (4) Hemorrhoids SNOMED Code(s): 85913416 ICD Code: K64.9 - UNSPECIFIED HEMORRHOIDS Status: Acute - Patient Instructions Diet: Diabetic Diet Diet, Other: High fiber diet and lots of fluids to help prevent constipation Activity: As Tolerated Driving: Do Not Drive Showering/Bathing: May Shower Notify Provider of: Fever, Increased Pain, Nausea and/or Vomiting - Discharge Plan Prescriptions/Med Rec: Docusate Sodium [Colace] 100 mg PO DAILY #30 cap Phenylephrine HCl/[place] Butter [Preparation H Suppository] 1 supp RC QID PRN # 30 supp.rect PRN Reason: Hemorrhoids Polyethylene Glycol 3350 [MiraLAX] 17 gm PO DAILY PRN #30 packet PRN Reason: Constipation Home Medications: Home Meds Diltiazem HCl [Diltiazem 24Hr ER] 360 mg PO BEDTIME 05/09/14 [History] Hydrochlorothiazide 12.5 mg PO DAILY 05/09/14 [History] atorvaSTATin Calcium [Atorvastatin Calcium] 20 mg PO BEDTIME 05/09/14 [History] metFORMIN [Glucophage] 1,000 mg PO BIDMEALS 05/09/14 [History] HYDROmorphone [Dilaudid] 1 - 2 tab PO Q4H PRN 10/27/15 [History] Loratadine 10 mg PO DAILY 10/27/15 [History] Valsartan 160 mg PO DAILY 10/27/15 [History] LORazepam [Ativan] 1 mg PO QID PRN 12/26/15 [History] Insulin Aspart [NovoLOG] 14 unit SUBCUT TIDAC pen 04/09/17 [Rx] Ondansetron [Zofran ODT] 4 mg PO Q4H PRN #14 tab.dis 05/07/17 [Rx] Insulin Glarg,Human.Rec.Analog [LantUS Solostar] 28 units SUBCUT BEDTIME [History] Pantoprazole [ProTONIX] 40 mg PO BID 08/06/17 [History] Docusate Sodium [Colace] 100 mg PO DAILY #30 cap 08/09/17 [Rx] Phenylephrine HCl/[place] Butter [Preparation H Suppository] 1 supp RC QID PRN # 30 supp.rect 08/09/17 [Rx] Polyethylene Glycol 3350 [MiraLAX] 17 gm PO DAILY PRN #30 packet 08/09/17 [Rx] Patient Handouts: Constipation, Adult, [id number], Hemorrhoids, [id number] , Hyperglycemia, [id number], Phenylephrine rectal suppository, Docusate capsules, Polyethylene Glycol powder [facility] - Discharge Summary/Plan Comment DC Time >30 min.: No Discharge Summary/Plan Comment: Admission diagnosis: #1. Abdominal pain secondary to constipation #2. Hyperglycemia #3. Hemorrhoids Discharge diagnosis: #1. Abdominal pain secondary to constipation, improved #2. Hyperglycemia, improved #3. Hemorrhoids 57 year old female with colon cancer that was admitted with abdominal pain secondary to constipation as well as hyperglycemia and hemorrhoids. Patient's white count was elevated on admission at 32,000 but returned within normal limits at the time of discharge. Prior to admission the patient had just finished a course of Neulasta secondary to her colon cancer and this was the suspected reason that her white count was elevated. Patient was afebrile during admission. Abdominal x-ray showed a nonobstructive bowel gas pattern with no acute findings. Urinalysis was unremarkable. Urine culture was negative. Blood culture 4 days was negative. Patient was given multiple medications to help with her constipation and by the time of discharge had had 6 bowel movements. Her abdominal pain improved slightly but she continued to have abdominal pain which is baseline for her. Her hyperglycemia also improved when she was placed on NovoLog sliding scale. She was continued on metformin. She notes that her hyperglycemia likely was secondary to recently finishing chemotherapy which is common for her. Patient is also given Preparation H suppositories for her hemorrhoids. At the time of discharge, the patient was tolerating oral intake and ambulating with assistance and voiding appropriately. Discharge plan: #1. Prescriptions given for MiraLAX, docusate and Preparation H suppositories. #2. Patient will follow-up with the [facility] as soon as possible following discharge. #3. Prescription given for a bedside commode secondary to the patient's decreased mobility and need for sitz bath secondary to her hemorrhoids. #4. Encouraged high-fiber diet, lots of fluids and reduction in the frequency of taking Dilaudid in order to prevent opioid-induced constipation. - Patient Data Vitals - Most Recent: Last Vital Signs Temp 98.1 F 08/09/17 09:00 Pulse 83 08/09/17 09:00 Resp 18 08/09/17 09:00 BP 148/83 H 08/09/17 09:00 Pulse Ox 99 08/09/17 09:00 Weight - Most Recent: 72.1 kg Med Orders - Current: Current Medications Discontinued Medications Acetaminophen (Tylenol) 325 mg PO Q4H PRN PRN Reason: Pain Last Admin: 08/09/17 08:21 Dose: 325 mg Atorvastatin Calcium (Lipitor) 20 mg PO BEDTIME [facility] Last Admin: 08/08/17 20:40 Dose: 20 mg Bisacodyl (Dulcolax) 10 mg RECTAL DAILY PRN PRN Reason: Constipation Last Admin: 08/08/17 09:18 Dose: 10 mg [place] Butter/Phenylephrine (Preparation H Supp) 1 each RECTAL ONETIME ONE Stop: 08/06/17 19:29 Last Admin: 08/06/17 20:53 Dose: 1 each [place] Butter/Phenylephrine (Preparation H Supp) 1 each RECTAL DAILY PRN PRN Reason: rectal pain Last Admin: 08/08/17 18:25 Dose: 1 each Diltiazem HCl (Cardizem Cd) 360 mg PO BEDTIME [facility] Last Admin: 08/08/17 20:40 Dose: 360 mg Docusate Sodium (Colace) 100 mg PO DAILY PRN PRN Reason: Constipation Last Admin: 08/08/17 06:43 Dose: 100 mg Enoxaparin Sodium (Lovenox) 40 mg SUBCUT Q24H [facility] Last Admin: 08/08/17 17:26 Dose: 40 mg Hydrochlorothiazide (Hydrochlorothiazide) 12.5 mg PO DAILY [facility] Last Admin: 08/09/17 08:22 Dose: 12.5 mg Hydromorphone HCl (Dilaudid) 1 mg IV ONETIME ONE Stop: 08/06/17 13:34 Last Admin: 08/06/17 14:36 Dose: 1 mg Hydromorphone HCl (Dilaudid) 2 mg PO Q8H PRN PRN Reason: Pain Last Admin: 08/09/17 11:10 Dose: 2 mg Sodium Chloride (Normal Saline) 1,000 mls @ 500 mls/hr IV STAT ONE Stop: 08/06/17 15:32 Last Admin: 08/06/17 14:05 Dose: 500 mls/hr Sodium Chloride (Normal Saline) 1,000 mls @ 125 mls/hr IV ASDIRECTED [facility] Last Admin: 08/09/17 02:56 Dose: 125 mls/hr Magnesium Sulfate 2 gm/ Premix 50 mls @ 50 mls/hr IV ONETIME ONE Stop: 08/07/17 11:49 Last Admin: 08/07/17 11:12 Dose: 50 mls/hr Insulin Aspart (Novolog) 0 unit SUBCUT TIDAC [facility] PRN Reason: Protocol Last Admin: 08/09/17 07:16 Dose: 2 units Loratadine (Claritin) 10 mg PO DAILY [facility] Last Admin: 08/09/17 08:21 Dose: 10 mg Lorazepam (Ativan) 1 mg PO QID PRN PRN Reason: Anxiety Last Admin: 08/09/17 01:35 Dose: 1 mg Magnesium Citrate (Citrate Of Magnesia) 0 ml PO ONETIME ONE Stop: 08/08/17 11:25 Last Admin: 08/08/17 12:21 Dose: 296 ml Metformin HCl (Glucophage) 1,000 mg PO BIDMEALS [facility] Last Admin: 08/09/17 08:22 Dose: 1,000 mg Ondansetron HCl (Zofran) 4 mg IVPUSH Q4H PRN PRN Reason: Nausea Pantoprazole Sodium (Protonix) 40 mg PO BIDAC [facility] Last Admin: 08/09/17 06:36 Dose: 40 mg Polyethylene Glycol (Miralax) 17 gm PO DAILY PRN PRN Reason: Constipation Last Admin: 08/07/17 18:18 Dose: 17 gm Senna/Docusate Sodium (Senokot-S) 1 each PO BID PRN PRN Reason: Constipation Last Admin: 08/07/17 09:39 Dose: 1 each Valsartan (Diovan) 160 mg PO DAILY [facility] Last Admin: 08/09/17 08:31 Dose: 160 mg *Q Meaningful Use (DIS) - VTE *Q VTE Criteria *Q: - Stroke *Q Stroke Criteria *Q: - AMI *Q AMI Criteria *Q: <Brendon Baldwin - Last Filed: 08/19/17 19:57> - Patient Data Vitals - Most Recent: Last Vital Signs Temp 36.7 C 08/09/17 09:00 Pulse 83 08/09/17 09:00 Resp 18 08/09/17 09:00 BP 148/83 H 08/09/17 09:00 Pulse Ox 99 08/09/17 09:00 Med Orders - Current: Current Medications Discontinued Medications Acetaminophen (Tylenol) 325 mg PO Q4H PRN PRN Reason: Pain Last Admin: 08/09/17 08:21 Dose: 325 mg Atorvastatin Calcium (Lipitor) 20 mg PO BEDTIME [facility] Last Admin: 08/08/17 20:40 Dose: 20 mg Bisacodyl (Dulcolax) 10 mg RECTAL DAILY PRN PRN Reason: Constipation Last Admin: 08/08/17 09:18 Dose: 10 mg [place] Butter/Phenylephrine (Preparation H Supp) 1 each RECTAL ONETIME ONE Stop: 08/06/17 19:29 Last Admin: 08/06/17 20:53 Dose: 1 each [place] Butter/Phenylephrine (Preparation H Supp) 1 each RECTAL DAILY PRN PRN Reason: rectal pain Last Admin: 08/08/17 18:25 Dose: 1 each Diltiazem HCl (Cardizem Cd) 360 mg PO BEDTIME [facility] Last Admin: 08/08/17 20:40 Dose: 360 mg Docusate Sodium (Colace) 100 mg PO DAILY PRN PRN Reason: Constipation Last Admin: 08/08/17 06:43 Dose: 100 mg Enoxaparin Sodium (Lovenox) 40 mg SUBCUT Q24H [facility] Last Admin: 08/08/17 17:26 Dose: 40 mg Hydrochlorothiazide (Hydrochlorothiazide) 12.5 mg PO DAILY [facility] Last Admin: 08/09/17 08:22 Dose: 12.5 mg Hydromorphone HCl (Dilaudid) 1 mg IV ONETIME ONE Stop: 08/06/17 13:34 Last Admin: 08/06/17 14:36 Dose: 1 mg Hydromorphone HCl (Dilaudid) 2 mg PO Q8H PRN PRN Reason: Pain Last Admin: 08/09/17 11:10 Dose: 2 mg Sodium Chloride (Normal Saline) 1,000 mls @ 500 mls/hr IV STAT ONE Stop: 08/06/17 15:32 Last Admin: 08/06/17 14:05 Dose: 500 mls/hr Sodium Chloride (Normal Saline) 1,000 mls @ 125 mls/hr IV ASDIRECTED [facility] Last Admin: 08/09/17 02:56 Dose: 125 mls/hr Magnesium Sulfate 2 gm/ Premix 50 mls @ 50 mls/hr IV ONETIME ONE Stop: 08/07/17 11:49 Last Admin: 08/07/17 11:12 Dose: 50 mls/hr Insulin Aspart (Novolog) 0 unit SUBCUT TIDAC [facility] PRN Reason: Protocol Last Admin: 08/09/17 07:16 Dose: 2 units Loratadine (Claritin) 10 mg PO DAILY [facility] Last Admin: 08/09/17 08:21 Dose: 10 mg Lorazepam (Ativan) 1 mg PO QID PRN PRN Reason: Anxiety Last Admin: 08/09/17 01:35 Dose: 1 mg Magnesium Citrate (Citrate Of Magnesia) 0 ml PO ONETIME ONE Stop: 08/08/17 11:25 Last Admin: 08/08/17 12:21 Dose: 296 ml Metformin HCl (Glucophage) 1,000 mg PO BIDMEALS [facility] Last Admin: 08/09/17 08:22 Dose: 1,000 mg Ondansetron HCl (Zofran) 4 mg IVPUSH Q4H PRN PRN Reason: Nausea Pantoprazole Sodium (Protonix) 40 mg PO BIDAC [facility] Last Admin: 08/09/17 06:36 Dose: 40 mg Polyethylene Glycol (Miralax) 17 gm PO DAILY PRN PRN Reason: Constipation Last Admin: 08/07/17 18:18 Dose: 17 gm Senna/Docusate Sodium (Senokot-S) 1 each PO BID PRN PRN Reason: Constipation Last Admin: 08/07/17 09:39 Dose: 1 each Valsartan (Diovan) 160 mg PO DAILY [facility] Last Admin: 08/09/17 08:31 Dose: 160 mg *Q Meaningful Use (DIS) - VTE *Q VTE Criteria *Q: - Stroke *Q Stroke Criteria *Q: - AMI *Q AMI Criteria *Q: - Free Text/Narrative Note: I have examined the patient. I have discussed findings and treatment plan with resident. I agree with the assessment and plan outlined in the following resident's note.
== END 2017-08-09 11:40 | disposition home or self-care (01) ==
LOC: MW.ED 13:04 → MW.MS 16:14
PROVIDERS: ADMIT Internal Medicine; ATTEND Internal Medicine
DX: K59.00 Constipation, unspecified (principal); K64.9 Unspecified hemorrhoids; E11.65 Type 2 diabetes mellitus with hyperglycemia; E87.1 Hypo-osmolality and hyponatremia; E78.00 Pure hypercholesterolemia, unspecified; I10 Essential (primary) hypertension; K21.9 Gastro-esophageal reflux disease without esophagitis; F41.9 Anxiety disorder, unspecified; F32.9 Major depressive disorder, single episode, unspecified; Z85.038 Personal history of other malignant neoplasm of large intestine; Z92.21 Personal history of antineoplastic chemotherapy; Z79.4 Long term (current) use of insulin; Z79.899 Other long term (current) drug therapy; Z88.5 Allergy status to narcotic agent; Z88.6 Allergy status to analgesic agent; Z88.8 Allergy status to other drugs, medicaments and biological substances; Z90.49 Acquired absence of other specified parts of digestive tract; Z90.710 Acquired absence of both cervix and uterus; Z90.79 Acquired absence of other genital organ(s); Z90.89 Acquired absence of other organs; Z98.890 Other specified postprocedural states
CPT/HCPCS: 36415; 74020; 80048; 80053; 81001; 82962; 83735; 84100; 85025; 87040; 87086; 96361; 96365; 96372; 96375; 99285; A9270; G0378; J1170; J1650; J1815; J3475; J7040; 96374; 99283

== ENCOUNTER 2017-08-27 14:00 | Emergency (ER) | payer OTHER ==
[2017-08-27 14:18] VITALS: BP 151/78
[2017-08-27] MEDS ORDERED: Sodium Chloride 0.9% 2.5 ML Syringe FLUSH PRN (15:17)
[2017-08-27] MEDS ORDERED: Sodium Chloride 0.9% 10 ML Syringe FLUSH PRN (15:17)
--- NOTE | 2017-08-27 15:25 | EDM.PDOC ---
ED HPI GENERAL MEDICAL PROBLEM - General Chief Complaint: ENT Problem Stated Complaint: SORE THROAT Time Seen by Provider: 08/27/17 15:21 Source of Information: Reports: Patient, Old Records History Limitations: Reports: No Limitations - History of Present Illness INITIAL COMMENTS - FREE TEXT/NARRATIVE: HISTORY AND PHYSICAL: []57-year-old female presenting with some sore mist throat that has been going on for a few days History of Present Illness: []Patient has history of hypertension hypercholesterolemia atrial fibrillation and colon cancer that is requiring chemotherapy she is stating her last chemotherapy was 2 days ago and since then she's had this sore throat. Last hospitalization was 08/06/17 for hyperglycemia and abdominal pain secondary to constipation Review of Systems: As per history of present illness and below otherwise all systems reviewed and negative. Past medical history: As per history of present illness and as reviewed below otherwise noncontributory. Surgical history: As per history of present illness and as reviewed below otherwise noncontributory. Social history: No reported history of drug or alcohol abuse. Family history: As per history of present illness and as reviewed below otherwise noncontributory. Physical exam: Alert and oriented female who is "breathy" with speaking, very anxious. HEENT: Atraumatic, normocehpalic, pupils reactive, negative for conjunctival pallor or scleral icterus, mucous membranes moist, throat clear, neck supple, nontender, trachea midline. Alopecia, tympanic membranes without erythema, no cervical adenopathy, throat is clear Lungs: Clear to auscultation, breath sounds equal bilaterally, chest non tender. Heart: S1S2, regular, negative for clicks, rubs, or JVD. Abdomen: Soft, nondistended, nontender. Negative for masses or hepatossplenmegaly. Negative for costovertebral tenderness. Pelvis: Stable nontender. Genitourinary: Deferred. Rectal: Deferred Extremities: Atraumatic, negative for cords or calf pain. Neurovascular unremarkable. Neuro: Awake, alert, oriented. Cranial nerves II through XII unremarkable. Cerebellum unremarkable. Motor and sensory unremarkable throughout. Exam nonfocal. Patient continues to complain that her throat hurts. Dilaudid 0.5mg im, chest x-ray clear elevated white count likely due to the chemotherapy she had 2 days ago Diagnostics: [CBC CMP EKG chest x-ray bedside glucose] Therapeutics: [Normal saline 1 L] Prednisolone syrup Tylenol 3 syrup Impression: [Pharyngitis] Plan: []Discharge to home Follow up with your PCP Wednesday Definitive disposition and diagnosis as appropriate pending reevaluation and review of above. Onset: Gradual Duration: Day(s): (2) Location: Reports: Neck Severity: Mild Throat Pain Score (Numeric/FACES): 9 - Related Data Allergies Allergy/AdvReac Type Severity Reaction Status Date / Time hydrocodone Allergy Unknown Hives Verified 08/27/17 14:20 ibuprofen Allergy Unknown Hives Verified 08/27/17 14:20 morphine Allergy Unknown Seizure Verified 08/27/17 14:20 nitroglycerin Allergy Unknown Difficulty Verified 08/27/17 14:20 Breathing caffeine Allergy Vomiting Verified 08/27/17 14:20 diphenhydramine HCl Allergy Excitabilit Verified 08/27/17 14:20 [From Benadryl] y Home Meds: Home Meds Diltiazem HCl [Diltiazem 24Hr ER] 360 mg PO BEDTIME 05/09/14 [History] Hydrochlorothiazide 12.5 mg PO DAILY 05/09/14 [History] atorvaSTATin Calcium [Atorvastatin Calcium] 20 mg PO BEDTIME 05/09/14 [History] metFORMIN [Glucophage] 1,000 mg PO BIDMEALS 05/09/14 [History] HYDROmorphone [Dilaudid] 1 - 2 tab PO Q4H PRN 10/27/15 [History] Loratadine 10 mg PO DAILY 10/27/15 [History] Valsartan 160 mg PO DAILY 10/27/15 [History] LORazepam [Ativan] 1 mg PO QID PRN 12/26/15 [History] Insulin Aspart [NovoLOG] 14 unit SUBCUT TIDAC pen 04/09/17 [Rx] Ondansetron [Zofran ODT] 4 mg PO Q4H PRN #14 tab.dis 05/07/17 [Rx] Insulin Glarg,Human.Rec.Analog [LantUS Solostar] 28 units SUBCUT BEDTIME [History] Pantoprazole [ProTONIX] 40 mg PO BID 08/06/17 [History] Phenylephrine HCl/[place] Butter [Preparation H Suppository] 1 supp RC QID PRN # 30 supp.rect 08/09/17 [Rx] Polyethylene Glycol 3350 [MiraLAX] 17 gm PO DAILY PRN #30 packet 08/09/17 [Rx] Past Medical History HEENT History: Reports: Impaired Vision Cardiovascular History: Reports: High Cholesterol, Hypertension Respiratory History: Reports: None Gastrointestinal History: Reports: GERD Other Gastrointestinal History: hernia, colon CA Genitourinary History: Reports: None 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: , Other (See Below) Other OB/BYN History: x2 Musculoskeletal History: Reports: None Neurological History: Reports: None Psychiatric History: Reports: Anxiety, Depression Endocrine/Metabolic History: Reports: Diabetes, Type II Hematologic History: Reports: None Immunologic History: Reports: None Oncologic (Cancer) History: Reports: Colon, Liver, Metastatic Dermatologic History: Reports: None - Infectious Disease History Infectious Disease History: Reports: Measles - Past Surgical History HEENT Surgical History: Reports: Adenoidectomy, Tonsillectomy GI Surgical History: Reports: Cholecystectomy, Colon, Hernia Repair/Other Other GI Surgeries/Procedures: colectomy x2 Female Surgical History: Reports: Hysterectomy, Salpingo-Oophorectomy Endocrine Surgical History: Reports: None Musculoskeletal Surgical History: Reports: None, Other (See Below) Other Musculoskeletal Surgeries/Procedures:: rigth knee pain Oncologic Surgical History: Reports: Other (See Below) Other Oncologic Surgeries/Procedures: presently on chemo treatment Dermatological Surgical History: Reports: None Social & Family History - Family History Family Medical History: Noncontributory GI: Reports: None - Tobacco Use Smoking Status *Q: Never Smoker Second Hand Smoke Exposure: No - Caffeine Use Caffeine Use: Reports: None - Alcohol Use Days Per Week of Alcohol Use: 0 - Recreational Drug Use Recreational Drug Use: No ED ROS ENT - Review of Systems Review Of Systems: ROS reveals no pertinent complaints other than HPI. ED EXAM, ENT - Physical Exam Exam: See Below Course - Vital Signs Last Recorded V/S: Last Vital Signs Temp 36.4 C 08/27/17 14:17 Pulse 77 08/27/17 14:17 Resp 20 08/27/17 14:17 BP 151/78 H 08/27/17 14:17 Pulse Ox 97 08/27/17 14:17 - Orders/Labs/Meds Orders: Active Orders 24 hr Category Date Time Status Blood Glucose Check, Bedside [RC] ONETIME Care 08/27/17 15:24 Active EKG Documentation Completion [RC] STAT Care 08/27/17 15:17 Active Oxygen Therapy, ED [RC] ASDIRECTED Care 08/27/17 15:17 Active Chest 1V Frontal [CR] Stat Exams 08/27/17 15:18 Taken CULTURE STREP A CONFIRMATION [] Stat Lab 08/27/17 17:10 Results STREP SCRN A RAPID W CULT CONF [] Stat Lab 08/27/17 17:10 Results Sodium Chloride 0.9% [Saline Flush] Med 08/27/17 15:17 Active 10 ml FLUSH ASDIRECTED PRN Sodium Chloride 0.9% [Saline Flush] Med 08/27/17 15:17 Active 2.5 ml FLUSH ASDIRECTED PRN Saline Lock Insert [OM.PC] Stat Oth 08/27/17 15:17 Ordered Medication Orders Sodium Chloride (Saline Flush) 10 ml FLUSH ASDIRECTED PRN PRN Reason: Keep Vein Open Last Admin: 08/27/17 16:14 Dose: 10 ml Sodium Chloride (Saline Flush) 2.5 ml FLUSH ASDIRECTED PRN PRN Reason: Keep Vein Open Last Admin: 08/27/17 16:15 Dose: 2.5 ml Labs: Laboratory Tests 08/27/17 08/27/17 08/27/17 Range/Units 15:27 15:30 15:30 WBC 32.07 H (4.0-11.0) K/uL RBC 3.75 L (4.30-5.90) M/uL Hgb 12.0 (12.0-16.0) g/dL Hct 35.9 L (36.0-46.0) % MCV 95.7 (80.0-98.0) fL MCH 32.0 (27.0-32.0) pg MCHC 33.4 (31.0-37.0) g/dL RDW Std Deviation 59.4 (28.0-62.0) fl RDW Coeff of Ej 17 H (11.0-15.0) % Plt Count 108 L (150-400) K/uL MPV 9.80 (7.40-12.00) fL Add Manual Diff YES Neutrophils % (Manual) 84 H (48.0-80.0) % Band Neutrophils % 7 % Lymphocytes % (Manual) 8 L (16.0-40.0) % Monocytes % (Manual) 1 (0.0-15.0) % Nucleated RBC % 0.0 /100WBC Absolute Seg Neuts 26.9 H (1.4-5.7) Band Neutrophils # 2.2 Lymphocytes # (Manual) 2.6 H (0.6-2.4) Monocytes # (Manual) 0.3 (0.0-0.8) Nucleated RBCs # 0 K/uL Sodium 141 (136-146) mmol/L Potassium 4.2 (3.5-5.1) mmol/L Chloride 102 (98-110) mmol/L Carbon Dioxide 27 (21-31) mmol/L BUN 25 H (6.0-23.0) mg/dL Creatinine 0.8 (0.6-1.5) mg/dL Est Cr Clr Drug Dosing 62.10 mL/min Estimated GFR (MDRD) > 60.0 ml/min Glucose 180 H (60-110) mg/dL POC Glucose 272 H (60-110) mg/dL Calcium 9.3 (8.8-10.8) mg/dL Total Bilirubin 1.1 (0.1-1.5) mg/dL AST 33 (5-40) IU/L ALT 41 (8-54) IU/L Alkaline Phosphatase 202 H (40-150) Troponin I < 0.10 (0.0-0.29) NG/ML Total Protein 6.6 (6.0-8.0) g/dL Albumin 4.0 (3.5-5.0) g/dL Globulin 2.6 (2.0-3.5) g/dL Albumin/Globulin Ratio 1.5 (1.3-2.8) 08/27/17 Range/Units 16:58 WBC (4.0-11.0) K/uL RBC (4.30-5.90) M/uL Hgb (12.0-16.0) g/dL Hct (36.0-46.0) % MCV (80.0-98.0) fL MCH (27.0-32.0) pg MCHC (31.0-37.0) g/dL RDW Std Deviation (28.0-62.0) fl RDW Coeff of Ej (11.0-15.0) % Plt Count (150-400) K/uL MPV (7.40-12.00) fL Add Manual Diff Neutrophils % (Manual) (48.0-80.0) % Band Neutrophils % % Lymphocytes % (Manual) (16.0-40.0) % Monocytes % (Manual) (0.0-15.0) % Nucleated RBC % /100WBC Absolute Seg Neuts (1.4-5.7) Band Neutrophils # Lymphocytes # (Manual) (0.6-2.4) Monocytes # (Manual) (0.0-0.8) Nucleated RBCs # K/uL Sodium (136-146) mmol/L Potassium (3.5-5.1) mmol/L Chloride (98-110) mmol/L Carbon Dioxide (21-31) mmol/L BUN (6.0-23.0) mg/dL Creatinine (0.6-1.5) mg/dL Est Cr Clr Drug Dosing mL/min Estimated GFR (MDRD) ml/min Glucose (60-110) mg/dL POC Glucose 134 H (60-110) mg/dL Calcium (8.8-10.8) mg/dL Total Bilirubin (0.1-1.5) mg/dL AST (5-40) IU/L ALT (8-54) IU/L Alkaline Phosphatase (40-150) Troponin I (0.0-0.29) NG/ML Total Protein (6.0-8.0) g/dL Albumin (3.5-5.0) g/dL Globulin (2.0-3.5) g/dL Albumin/Globulin Ratio (1.3-2.8) Meds: Medications Generic Name Dose Route Start Last Admin Trade Name Freq PRN Reason Stop Dose Admin Sodium Chloride 10 ml 08/27/17 15:17 08/27/17 16:14 Saline Flush FLUSH 10 ml ASDIRECTED PRN Administration Keep Vein Open Sodium Chloride 2.5 ml 08/27/17 15:17 08/27/17 16:15 Saline Flush FLUSH 2.5 ml ASDIRECTED PRN Administration Keep Vein Open Discontinued Medications Generic Name Dose Route Start Last Admin Trade Name Freq PRN Reason Stop Dose Admin Acetaminophen/Codeine Phosphate 15 ml 08/27/17 15:54 11/24/17 16:14 Tylenol/Codeine 120-12 Mg/5 Ml PO 08/27/17 15:55 15 ml ONETIME ONE Administration Hydromorphone HCl 0.5 mg 08/27/17 17:01 08/27/17 17:07 Dilaudid IM 08/27/17 17:02 0.5 mg ONETIME ONE Administration Sodium Chloride 1,000 mls @ 999 mls/hr 08/27/17 15:53 08/27/17 16:14 Normal Saline IV 08/27/17 16:53 999 mls/hr STAT ONE Administration Insulin Human Regular 3 unit 08/27/17 15:47 08/27/17 16:23 Novolin R SUBCUT 08/27/17 15:48 3 units ONETIME ONE Administration Protocol Prednisolone 15 mg 08/27/17 15:54 08/27/17 16:14 Orapred 15 Mg/5ml Soln PO 08/27/17 15:55 15 mg ONETIME ONE Administration Departure - Departure Time of Disposition: 17:37 Disposition: Home, Self-Care 01 Condition: Good Clinical Impression: Pharyngitis Qualifiers: Pharyngitis/tonsillitis etiology: unspecified etiology Qualified Code(s): J02.9 - Acute pharyngitis, unspecified - Discharge Information Referrals: Iesha Dangelo, [employer] SUPERVISOR [Primary Care Provider] - Forms: ED Department Discharge Additional Instructions: The following information is given to patients seen in the emergency department who are being discharged to home. This information is to outline your options for follow-up care. We provide all patients seen in our emergency department with a follow-up referral. The need for follow-up, as well as the timing and circumstances, are variable depending upon the specifics of your emergency department visit. If you don't have a primary care physician on staff, we will provide you with a referral. We always advise you to contact your personal physician following an emergency department visit to inform them of the circumstance of the visit and for follow-up with them and/or the need for any referrals to a consulting specialist. The emergency department will also refer you to a specialist when appropriate. This referral assures that you have the opportunity for followup care with a specialist. All of these measure are taken in an effort to provide you with optimal care, which includes your followup. Under all circumstances we always encourage you to contact your private physician who remains a resource for coordinating your care. When calling for followup care, please make the office aware that this follow-up is from your recent emergency room visit. If for any reason you are refused follow-up, please contact the [facility] emergency department at and asked to speak to the emergency department charge nurse. Prescription has been written for Catherine's miracle mouthwash Swish and spit every 2 hours as needed for throat and mouth pain - My Orders Last 24 Hours: My Active Orders 08/27/17 15:17 EKG Documentation Completion [RC] STAT Oxygen Therapy, ED [RC] ASDIRECTED Sodium Chloride 0.9% [Saline Flush] 10 ml FLUSH ASDIRECTED PRN Sodium Chloride 0.9% [Saline Flush] 2.5 ml FLUSH ASDIRECTED PRN Saline Lock Insert [OM.PC] Stat 08/27/17 15:18 Chest 1V Frontal [CR] Stat 08/27/17 15:24 Blood Glucose Check, Bedside [RC] ONETIME 08/27/17 17:10 CULTURE STREP A CONFIRMATION [RM] Stat STREP SCRN A RAPID W CULT CONF [RM] Stat - Assessment/Plan Last 24 Hours: My Active Orders 08/27/17 15:17 EKG Documentation Completion [RC] STAT Oxygen Therapy, ED [RC] ASDIRECTED Sodium Chloride 0.9% [Saline Flush] 10 ml FLUSH ASDIRECTED PRN Sodium Chloride 0.9% [Saline Flush] 2.5 ml FLUSH ASDIRECTED PRN Saline Lock Insert [OM.PC] Stat 08/27/17 15:18 Chest 1V Frontal [CR] Stat 08/27/17 15:24 Blood Glucose Check, Bedside [RC] ONETIME 08/27/17 17:10 CULTURE STREP A CONFIRMATION [RM] Stat STREP SCRN A RAPID W CULT CONF [RM] Stat
[2017-08-27] MEDS ORDERED: Insulin Regular, Human 100 Units/ML 10 ML Vial SUBCUT ONE (15:47)
[2017-08-27] MEDS ORDERED: Sodium Chloride 0.9% 1,000 ML IV ONE (15:53)
[2017-08-27] MEDS ORDERED: prednisoLONE Soln 15 MG/5 ML UD Cup PO ONE (15:54)
[2017-08-27] MEDS ORDERED: Acetaminophen/Codeine 120-12 MG/5 ML Soln 5 ML UD Cup PO ONE (15:54)
[2017-08-27 16:06] LABS: CHLORIDE,CL 102 mmol/L (98-110); SODIUM,NA 141 mmol/L (136-146)
[2017-08-27] MEDS ORDERED: HYDROmorphone 1 MG/ML Syringe IM ONE (17:01)
--- NOTE | 2017-08-29 05:55 | CR ---
EXAM DATE: 08/27/17 PATIENT'S AGE: 57 Patient: JOCELYNN SANTIAGO Facility: [place], [place] Site . Site : [id number] Study: XRay Chest [id number] 3:56:44 PM Ordering Physician: Doctor Esparza Final Report: INDICATION: soreness/tightness of throat after chemo on Wed TECHNIQUE: AP portable upright chest film submitted. COMPARISON: Chest x-ray 05/02/2017. FINDINGS: Heart size and pulmonary vasculature within normal limits. Lung badillo are negative for infiltrates. Left subclavian port with the catheter tip at the SVC- RA junction. There is a stable rounded density projected over the right hilum which on the previous chest x-ray and chest CT exam corresponded to a calcified granuloma. IMPRESSION: No active disease. Dictated by Chico Delgado MD @ 08/27/2017 4:09:10 PM Dictated by: Chico Delgado MD @ 08/27/2017 16:09:20 (Electronic Signature) Report Signed by Proxy. [facility]
== END 2017-08-27 17:48 | disposition home or self-care (01) ==
LOC: MW.ED 14:00
DX: J02.9 Acute pharyngitis, unspecified (principal); I10 Essential (primary) hypertension; E78.00 Pure hypercholesterolemia, unspecified; E11.9 Type 2 diabetes mellitus without complications; F32.9 Major depressive disorder, single episode, unspecified; K21.9 Gastro-esophageal reflux disease without esophagitis; Z79.4 Long term (current) use of insulin; Z79.899 Other long term (current) drug therapy; Z88.5 Allergy status to narcotic agent; Z88.6 Allergy status to analgesic agent; Z88.8 Allergy status to other drugs, medicaments and biological substances; Z91.018 Allergy to other foods
CPT/HCPCS: 36415; 71010; 80053; 82962; 84484; 85025; 87081; 87880; 93005; 96360; 96372; 99284; A9270; J1170; J7040; 99283; J1815-GY

== ENCOUNTER 2018-02-04 04:52 | Inpatient (IN) | payer OTHER ==
[2018-02-04 06:05] LABS: CHLORIDE,CL 97 mmol/L (98-107); SODIUM,NA 133 mmol/L (136-145)
--- NOTE | 2018-02-04 06:46 | EDM.PDOC ---
ED HPI GENERAL MEDICAL PROBLEM - General Chief Complaint: Chest Pain Stated Complaint: HARD TIME BREATHING Time Seen by Provider: 02/04/18 06:16 - History of Present Illness INITIAL COMMENTS - FREE TEXT/NARRATIVE: HISTORY AND PHYSICAL: History of present illness: Patient's 57 year old female history hypertension hypercholesterolemia atrial fibrillation colon cancer with chemotherapy who presents today with concern of chest pain and abdominal pain after taking trazodone she states her throat also felt tight she equivocates regarding any shortness of breath she has had a similar episode and was admitted in August for similar symptomatology. On the prior visit her white count was 32,000 with same stable hemoglobin hematocrit and platelets. She has had no vomiting or reported diarrhea with this episode today. Review of systems: As per history of present illness and below otherwise all systems reviewed and negative. Past medical history: As per history of present illness and as reviewed below otherwise noncontributory. Surgical history: As per history of present illness and as reviewed below otherwise noncontributory. Social history: No reported history of drug or alcohol abuse. Family history: As per history of present illness and as reviewed below otherwise noncontributory. Physical exam: HEENT: Atraumatic, normocephalic, pupils reactive, negative for conjunctival pallor or scleral icterus, mucous membranes moist, throat clear, neck supple, nontender, trachea midline. Lungs: Clear to auscultation, breath sounds equal bilaterally, chest nontender. Heart: S1S2, regular, negative for clicks, rubs, or JVD. Abdomen: Soft, nondistended, no localized tenderness. Negative for masses or hepatosplenomegaly. Negative for costovertebral tenderness. Pelvis: Stable nontender. Genitourinary: Deferred. Rectal: Deferred. Extremities: Atraumatic, negative for cords or calf pain. Neurovascular unremarkable. Neuro: Awake, alert, oriented. Cranial nerves II through XII unremarkable. Cerebellum unremarkable. Motor and sensory unremarkable throughout. Exam nonfocal. Diagnostics: CBC CMP troponin PT/INR blood cultures 2 lactic acid chest x-ray CT abdomen and pelvis Therapeutics: Saline at 125 mL an hour Impression: #1 history of colon cancer #2 chest pain #3 abdominal pain #4 history of diabetes Definitive disposition and diagnosis as appropriate pending reevaluation and review of above. chest Pain Score (Numeric/FACES): 6 - Related Data Allergies Allergy/AdvReac Type Severity Reaction Status Date / Time hydrocodone Allergy Unknown Hives Verified 02/04/18 05:07 ibuprofen Allergy Unknown Hives Verified 02/04/18 05:07 morphine Allergy Unknown Seizure Verified 02/04/18 05:07 nitroglycerin Allergy Unknown Difficulty Verified 02/04/18 05:07 Breathing caffeine Allergy Vomiting Verified 02/04/18 05:07 diphenhydramine HCl Allergy Excitabilit Verified 02/04/18 05:07 [From Benadryl] y Home Meds: Home Meds Diltiazem HCl [Diltiazem 24Hr ER] 360 mg PO BEDTIME 05/09/14 [History] Hydrochlorothiazide 12.5 mg PO DAILY 05/09/14 [History] atorvaSTATin Calcium [Atorvastatin Calcium] 20 mg PO BEDTIME 05/09/14 [History] metFORMIN [Glucophage] 1,000 mg PO BIDMEALS 05/09/14 [History] HYDROmorphone [Dilaudid] 1 - 2 tab PO Q4H PRN 10/27/15 [History] Loratadine 10 mg PO DAILY 10/27/15 [History] Valsartan 160 mg PO DAILY 10/27/15 [History] LORazepam [Ativan] 1 mg PO QID PRN 12/26/15 [History] Ondansetron [Zofran ODT] 4 mg PO Q4H PRN #14 tab.dis 05/07/17 [Rx] Insulin Glarg,Human.Rec.Analog [LantUS Solostar] 50 units SUBCUT BEDTIME [History] Pantoprazole [ProTONIX] 40 mg PO BID 08/06/17 [History] Estrogens, Conjugated [Premarin] 1 supp IV ASDIRECTED 02/04/18 [History] Insulin Aspart [NovoLOG] 14 unit SUBCUT TID 02/04/18 [History] traZODone HCl [Trazodone HCl] 1 tab PO BEDTIME 02/04/18 [History] Past Medical History HEENT History: Reports: Impaired Vision Cardiovascular History: Reports: High Cholesterol, Hypertension Respiratory History: Reports: None Gastrointestinal History: Reports: GERD Other Gastrointestinal History: hernia, colon CA Genitourinary History: Reports: None 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: , Other (See Below) Other OB/BYN History: x2 Musculoskeletal History: Reports: None Neurological History: Reports: None Psychiatric History: Reports: Anxiety, Depression Endocrine/Metabolic History: Reports: Diabetes, Type II Hematologic History: Reports: None Immunologic History: Reports: None Oncologic (Cancer) History: Reports: Colon, Liver, Metastatic Dermatologic History: Reports: None - Infectious Disease History Infectious Disease History: Reports: Measles - Past Surgical History HEENT Surgical History: Reports: Adenoidectomy, Tonsillectomy GI Surgical History: Reports: Cholecystectomy, Colon, Hernia Repair/Other Other GI Surgeries/Procedures: colectomy x2 Female Surgical History: Reports: Section, Hysterectomy, Salpingo- Oophorectomy Endocrine Surgical History: Reports: None Musculoskeletal Surgical History: Reports: None, Other (See Below) Other Musculoskeletal Surgeries/Procedures:: rigth knee pain Oncologic Surgical History: Reports: Other (See Below) Other Oncologic Surgeries/Procedures: presently on chemo treatment Dermatological Surgical History: Reports: None Social & Family History - Family History Family Medical History: Noncontributory GI: Reports: None - Tobacco Use Smoking Status *Q: Never Smoker Second Hand Smoke Exposure: No - Caffeine Use Caffeine Use: Reports: None - Alcohol Use Days Per Week of Alcohol Use: 0 - Recreational Drug Use Recreational Drug Use: No ED ROS GENERAL - Review of Systems Review Of Systems: ROS reveals no pertinent complaints other than HPI. ED EXAM, GENERAL - Physical Exam Exam: See Below (See dictation) Course - Vital Signs Last Recorded V/S: Last Vital Signs Temp 36.3 C 02/04/18 07:55 Pulse 58 L 02/04/18 07:55 Resp 20 02/04/18 07:55 BP 120/64 02/04/18 07:55 Pulse Ox 99 02/04/18 07:55 - Orders/Labs/Meds Orders: Active Orders 24 hr Category Date Time Status EKG 12 Lead [EKG Documentation Completion] [RC] STAT Care 02/04/18 05:03 Active Abdomen Pelvis wo Cont [CT] Stat Exams 02/04/18 06:24 Ordered Chest 1V Frontal [CR] Stat Exams 02/04/18 05:03 Taken CULTURE BLOOD [BC] Stat Lab 02/04/18 06:50 Received CULTURE BLOOD [BC] Stat Lab 02/04/18 06:56 Received Sodium Chloride 0.9% [Normal Saline] 1,000 ml Med 02/04/18 07:15 Active IV ASDIRECTED Blood Culture x2 Reflex Set [OM.PC] Stat Oth 02/04/18 06:43 Ordered Medication Orders Sodium Chloride (Normal Saline) 1,000 mls @ 125 mls/hr IV ASDIRECTED MARIA T Last Admin: 02/04/18 08:02 Dose: 125 mls/hr Labs: Laboratory Tests 02/04/18 02/04/18 02/04/18 Range/Units 05:20 05:20 05:20 WBC 40.91 H (4.0-11.0) K/uL RBC 3.80 L (4.30-5.90) M/uL Hgb 12.7 (12.0-16.0) g/dL Hct 36.4 (36.0-46.0) % MCV 95.8 (80.0-98.0) fL MCH 33.4 H (27.0-32.0) pg MCHC 34.9 (31.0-37.0) g/dL RDW Std Deviation 57.7 (28.0-62.0) fl RDW Coeff of Ej 17 H (11.0-15.0) % Plt Count 188 (150-400) K/uL MPV 9.10 (7.40-12.00) fL Add Manual Diff YES Neutrophils % (Manual) 90 H (48.0-80.0) % Band Neutrophils % 10 % Nucleated RBC % 0.0 /100WBC Absolute Seg Neuts 36.8 H (1.4-5.7) Band Neutrophils # 4.1 Nucleated RBCs # 0 K/uL Lactate 4.2 H (0.20-2.00) mmol/L Sodium 133 L (136-145) mmol/L Potassium 4.3 (3.5-5.1) mmol/L Chloride 97 L (98-107) mmol/L Carbon Dioxide 23.6 (21.0-32.0) mmol/L BUN 25 H (7.0-18.0) mg/dL Creatinine 1.0 (0.6-1.0) mg/dL Est Cr Clr Drug Dosing TNP Estimated GFR (MDRD) 57.4 ml/min Glucose 230 H (74-106) mg/dL Calcium 9.5 (8.5-10.1) mg/dL Total Bilirubin 0.9 (0.2-1.0) mg/dL AST 26 (15-37) IU/L ALT 40 (14-63) IU/L Alkaline Phosphatase 204 H (46-116) U/L CK-MB (CK-2) 0.7 (0-3.6) ng/mL Troponin I < 0.050 (0.000-0.056) ng/mL Total Protein 7.3 (6.4-8.2) g/dL Albumin 3.5 (3.4-5.0) g/dL Globulin 3.8 H (2.0-3.5) g/dL Albumin/Globulin Ratio 0.9 L (1.3-2.8) Meds: Medications Generic Name Dose Route Start Last Admin Trade Name Freq PRN Reason Stop Dose Admin Sodium Chloride 1,000 mls @ 125 mls/hr 02/04/18 07:15 02/04/18 08:02 Normal Saline IV 125 mls/hr ASDIRECTED MARIA T Administration Departure - Departure Time of Disposition: 09:06 Disposition: Refer to Observation Condition: Good Clinical Impression: Abdominal pain, Atypical chest pain, Leukocytosis Colon cancer Qualifiers: Colon location: unspecified part of colon Qualified Code(s): C18.9 - Malignant neoplasm of colon, unspecified - Discharge Information Referrals: PCP,None [Primary Care Provider] - Forms: ED Department Discharge - My Orders Last 24 Hours: My Active Orders 02/04/18 05:03 EKG 12 Lead [EKG Documentation Completion] [RC] STAT Chest 1V Frontal [CR] Stat 02/04/18 06:24 Abdomen Pelvis wo Cont [CT] Stat 02/04/18 06:43 Blood Culture x2 Reflex Set [OM.PC] Stat 02/04/18 06:50 CULTURE BLOOD [BC] Stat 02/04/18 06:56 CULTURE BLOOD [BC] Stat 02/04/18 07:15 Sodium Chloride 0.9% [Normal Saline] 1,000 ml IV ASDIRECTED - Assessment/Plan Last 24 Hours: My Active Orders 02/04/18 05:03 EKG 12 Lead [EKG Documentation Completion] [RC] STAT Chest 1V Frontal [CR] Stat 02/04/18 06:24 Abdomen Pelvis wo Cont [CT] Stat 02/04/18 06:43 Blood Culture x2 Reflex Set [OM.PC] Stat 02/04/18 06:50 CULTURE BLOOD [BC] Stat 02/04/18 06:56 CULTURE BLOOD [BC] Stat 02/04/18 07:15 Sodium Chloride 0.9% [Normal Saline] 1,000 ml IV ASDIRECTED
[2018-02-04] MEDS: Sodium Chloride 0.9% 1,000 ML IV SCH ×3 (08:02→20:24)
--- NOTE | 2018-02-04 11:39 | CT ---
CT of the abdomen and pelvis without contrast. HISTORY: Pain TECHNIQUE: Axial CT images were obtained of the abdomen and pelvis without contrast. Coronal and sagi ttal reconstructions obtained. FINDINGS: The lung bases are clear, no pleural effusion. Hepatic and splenic granulomata noted. Cholecystectomy. The Adrenal glands, and pancreas appear unrem arkable for noncontrast examination. The gallbladder appears normal. There is no bulky retroperitone al lymphadenopathy. No abdominal ascites. There are no calcifications noted within the kidneys or along the courses of the ureters bilaterally. The large and small bowel are normal in caliber without evidence of obstruction. The appendix appears normal. Minimal nonspecific stranding along the left paracolic gutter with underlying postsurgical c hanges. There is no bulky pelvic lymphadenopathy. No free fluid. No free air. The urinary bladder ange ears normal. The visualized osseous structures appear normal. IMPRESSION: 1. Minimal nonspecific stranding within the left pericolic cutter, correlate clinically colitis. 2. Hepatic and splenic granulomata. 3. Otherwise no acute findings noted within the abdomen or pelvis.
[2018-02-04] MEDS ORDERED: Albuterol/Ipratropium 3.0-0.5 MG/3 ML Neb Soln NEB PRN (11:53)
[2018-02-04] MEDS ORDERED: Acetaminophen 325 MG Tab PO PRN (11:53)
[2018-02-04] MEDS ORDERED: Diphenhydramine/Lidocaine/Nystatin Suspension 237 ML Bottle PO PRN (11:58)
[2018-02-04] MEDS ORDERED: HYDROmorphone 2 MG Tab PO PRN (11:58)
[2018-02-04] MEDS ORDERED: LORazepam 1 MG Tab PO PRN (11:58)
[2018-02-04] MEDS ORDERED: ESTROGENS VAG SCH (12:00)
--- NOTE | 2018-02-04 12:08 | PCM.HP ---
H&P History of Present Illness - General Date of Service: 02/04/18 Admit Problem/Dx: Admission Diagnosis/Problem Admission Diagnosis/Problem Abdominal pain Source of Information: Patient History Limitations: Reports: No Limitations - History of Present Illness Initial Comments - Free Text/Narative: 57-year-old female with colon cancer that is currently receiving chemotherapy and also medical history of hypertension, dyslipidemia, atrial fibrillation, type 2 diabetes and GERD, that is being admitted with chest and abdominal pain. Patient notes that she has started a new medication, trazodone, which was prescribed to her by her oncologist, Dr. Cho for insomnia. She typically takes half a tablet notes that this has not been helping her sleep so at approximately 2 AM last night she took a full tab and began to feel chest pain and abdominal pain. She also had feelings of nauseousness but did not have any vomiting. She also states that she finished her most recent chemotherapy treatment 2 days ago and does feel like this at times after chemotherapy. She is unsure if her symptoms are due to the trazodone or to the chemotherapy treatment. She gets chemotherapy every 3 weeks. She also gets Neulasta following her chemotherapy treatments to keep her white blood cell count high. She received the Neulasta a few days ago following her chemotherapy treatment. Patient also notes that last week she had constipation which is abnormal for her. Normally she has diarrhea and she has resumed her normal bowel movements. There is been no blood in the stool or dark stools. She has had a decreased appetite but this is not different for her. She tries to eat and drink as much she can but notes that often she does not have enough intake. Patient also believes that her chest pain is secondary to her reflux. She has no cardiac history including stroke or heart attack. She has not had any peripheral edema. Her chest pain is located in the substernal area and does not radiate. She does not have any diaphoresis. ER course: CBC shows a white blood cell count of 40.9 which is likely secondary to her Neulasta. Hemoglobin is normal. Chest x-ray is unremarkable. CMP shows an elevated ALP of 204 and a BUN of 25. Her lactate is 4.2. Vital signs are stable. Patient was started on IV fluids in the ER. CT abdomen/pelvis shows some stranding in the left pericolic gutter suggesting colitis. chest Pain Score (Numeric/FACES): 6 - Related Data Allergies/Adverse Reactions: Allergies Allergy/AdvReac Type Severity Reaction Status Date / Time hydrocodone Allergy Unknown Hives Verified 02/04/18 05:07 ibuprofen Allergy Unknown Hives Verified 02/04/18 05:07 morphine Allergy Unknown Seizure Verified 02/04/18 05:07 nitroglycerin Allergy Unknown Difficulty Verified 02/04/18 05:07 Breathing caffeine Allergy Vomiting Verified 02/04/18 05:07 diphenhydramine HCl Allergy Excitabilit Verified 02/04/18 05:07 [From Bendonisryl] y Home Medications: Home Meds Diltiazem HCl [Diltiazem 24Hr ER] 360 mg PO BEDTIME 05/09/14 [History] Hydrochlorothiazide 12.5 mg PO DAILY 05/09/14 [History] atorvaSTATin Calcium [Atorvastatin Calcium] 20 mg PO BEDTIME 05/09/14 [History] metFORMIN [Glucophage] 1,000 mg PO BIDMEALS 05/09/14 [History] HYDROmorphone [Dilaudid] 1 - 2 tab PO Q4H PRN 10/27/15 [History] Loratadine 10 mg PO DAILY 10/27/15 [History] Valsartan 160 mg PO QAM 10/27/15 [History] LORazepam [Ativan] 1 mg PO QID PRN 12/26/15 [History] Ondansetron [Zofran ODT] 4 mg PO Q4H PRN #14 tab.dis 05/07/17 [Rx] Insulin Glarg,Human.Rec.Analog [LantUS Solostar] 60 units SUBCUT BEDTIME [History] Pantoprazole [ProTONIX] 40 mg PO QPM 08/06/17 [History] Diphenhyd/Lidocaine/Nystatin [Magic Mouthwash] 30 ml PO QID PRN 02/04/18 [ History] Estrogens, Conjugated [Premarin] 1 supp IV ASDIRECTED 02/04/18 [History] Insulin Aspart [NovoLOG] 14 unit SUBCUT TID 02/04/18 [History] Loperamide [Imodium] 2 mg PO PRN 02/04/18 [History] traZODone HCl [Trazodone HCl] 100 mg PO BEDTIME 02/04/18 [History] Past Medical History HEENT History: Reports: Impaired Vision Cardiovascular History: Reports: High Cholesterol, Hypertension Respiratory History: Reports: None Gastrointestinal History: Reports: GERD Other Gastrointestinal History: hernia, colon CA Genitourinary History: Reports: UTI, Recurrent [employer]ER History: Reports: , Other (See Below) Other OB/BYN History: x2 Musculoskeletal History: Reports: None Neurological History: Reports: None Psychiatric History: Reports: Anxiety, Depression Endocrine/Metabolic History: Reports: Diabetes, Type II Hematologic History: Reports: None Immunologic History: Reports: None Oncologic (Cancer) History: Reports: Colon, Liver, Metastatic Dermatologic History: Reports: None - Infectious Disease History Infectious Disease History: Reports: Measles - Past Surgical History HEENT Surgical History: Reports: Adenoidectomy, Tonsillectomy GI Surgical History: Reports: Cholecystectomy, Colon, Hernia Repair/Other Other GI Surgeries/Procedures: colectomy x2 Female Surgical History: Reports: Section, Hysterectomy, Salpingo- Oophorectomy Endocrine Surgical History: Reports: None Musculoskeletal Surgical History: Reports: None, Other (See Below) Other Musculoskeletal Surgeries/Procedures:: rigth knee pain Oncologic Surgical History: Reports: Other (See Below) Other Oncologic Surgeries/Procedures: presently on chemo treatment last done on February 02, 2018. Dermatological Surgical History: Reports: None Social & Family History - Family History Family Medical History: Noncontributory GI: Reports: None - Tobacco Use Smoking Status *Q: Never Smoker Second Hand Smoke Exposure: No - Caffeine Use Caffeine Use: Reports: None - Alcohol Use Days Per Week of Alcohol Use: 0 - Recreational Drug Use Recreational Drug Use: No H&P Review of Systems - Review of Systems: Review Of Systems: See Below General: Reports: No Symptoms HEENT: Reports: No Symptoms Pulmonary: Reports: No Symptoms Cardiovascular: Reports: Chest Pain Gastrointestinal: Reports: Abdominal Pain, Diarrhea, Decreased Appetite Genitourinary: Reports: No Symptoms Musculoskeletal: Reports: No Symptoms Skin: Reports: No Symptoms Psychiatric: Reports: No Symptoms Neurological: Reports: No Symptoms Hematologic/Lymphatic: Reports: No Symptoms Immunologic: Reports: No Symptoms Exam - Exam Exam: See Below - Vital Signs Vital Signs: Last Vital Signs Temp 97.6 F 02/04/18 10:42 Pulse 60 02/04/18 10:42 Resp 16 02/04/18 10:42 BP 162/85 H 02/04/18 10:42 Pulse Ox 100 02/04/18 10:42 Weight: 156 lb 1.6 oz - Exam General: Alert, Oriented, Cooperative HEENT: Conjunctiva Clear, EOMI, Hearing Intact, Mucosa Moist & [place] Neck: Supple, Trachea Midline, 2 Lungs: Clear to Auscultation, Normal Respiratory Effort Cardiovascular: Regular Rate, Regular Rhythm GI/Abdominal Exam: Normal Bowel Sounds, Soft, No Organomegaly, No Distention, No Abnormal Bruit, No Mass, Pelvis Stable, Other (There is not a lot of tenderness with palpation.) Extremities: Normal Inspection, Normal Range of Motion, Non-Tender, No Pedal Edema, Normal Capillary Refill Peripheral Pulses: 2+: Radial (L), Radial (R), Posterior Tibial (L), Posterior Tibial (R) Skin: Warm, Dry, Intact Neuro Extensive - Mental Status: Alert, Oriented x3, Normal Mood/Affect, Normal Cognition Psychiatric: Alert, Normal Affect, Normal Mood - Patient Data Lab Results Last 24 hrs: Laboratory Results - last 24 hr 02/04/18 02/04/18 02/04/18 Range/Units 05:20 05:20 05:20 WBC 40.91 H (4.0-11.0) K/uL RBC 3.80 L (4.30-5.90) M/uL Hgb 12.7 (12.0-16.0) g/dL Hct 36.4 (36.0-46.0) % MCV 95.8 (80.0-98.0) fL MCH 33.4 H (27.0-32.0) pg MCHC 34.9 (31.0-37.0) g/dL RDW Std Deviation 57.7 (28.0-62.0) fl RDW Coeff of Ej 17 H (11.0-15.0) % Plt Count 188 (150-400) K/uL MPV 9.10 (7.40-12.00) fL Add Manual Diff YES Neutrophils % (Manual) 90 H (48.0-80.0) % Band Neutrophils % 10 % Nucleated RBC % 0.0 /100WBC Absolute Seg Neuts 36.8 H (1.4-5.7) Band Neutrophils # 4.1 Nucleated RBCs # 0 K/uL Lactate 4.2 H (0.20-2.00) mmol/L Sodium 133 L (136-145) mmol/L Potassium 4.3 (3.5-5.1) mmol/L Chloride 97 L (98-107) mmol/L Carbon Dioxide 23.6 (21.0-32.0) mmol/L BUN 25 H (7.0-18.0) mg/dL Creatinine 1.0 (0.6-1.0) mg/dL Est Cr Clr Drug Dosing TNP Estimated GFR (MDRD) 57.4 ml/min Glucose 230 H (74-106) mg/dL Calcium 9.5 (8.5-10.1) mg/dL Total Bilirubin 0.9 (0.2-1.0) mg/dL AST 26 (15-37) IU/L ALT 40 (14-63) IU/L Alkaline Phosphatase 204 H (46-116) U/L CK-MB (CK-2) 0.7 (0-3.6) ng/mL Troponin I < 0.050 (0.000-0.056) ng/mL Total Protein 7.3 (6.4-8.2) g/dL Albumin 3.5 (3.4-5.0) g/dL Globulin 3.8 H (2.0-3.5) g/dL Albumin/Globulin Ratio 0.9 L (1.3-2.8) Urine Color Urine Appearance Urine pH (5.0-8.0) Ur Specific [place] (1.001-1.035) Urine Protein (NEGATIVE) mg/dL Urine Glucose (UA) (NEGATIVE) mg/dL Urine Ketones (NEGATIVE) mg/dL Urine Occult Blood (NEGATIVE) Urine Nitrite (NEGATIVE) Urine Bilirubin (NEGATIVE) Urine Urobilinogen (<2.0) EU/dL Ur Leukocyte Esterase (NEGATIVE) Urine RBC (0-2/HPF) Urine WBC (0-5/HPF) Ur Epithelial Cells (NONE-FEW) Amorphous Sediment (NEGATIVE) Urine Bacteria (NEGATIVE) Urine Yeast 02/04/18 02/04/18 Range/Units 10:41 11:42 WBC (4.0-11.0) K/uL RBC (4.30-5.90) M/uL Hgb (12.0-16.0) g/dL Hct (36.0-46.0) % MCV (80.0-98.0) fL MCH (27.0-32.0) pg MCHC (31.0-37.0) g/dL RDW Std Deviation (28.0-62.0) fl RDW Coeff of Ej (11.0-15.0) % Plt Count (150-400) K/uL MPV (7.40-12.00) fL Add Manual Diff Neutrophils % (Manual) (48.0-80.0) % Band Neutrophils % % Nucleated RBC % /100WBC Absolute Seg Neuts (1.4-5.7) Band Neutrophils # Nucleated RBCs # K/uL Lactate 3.5 H (0.20-2.00) mmol/L Sodium (136-145) mmol/L Potassium (3.5-5.1) mmol/L Chloride (98-107) mmol/L Carbon Dioxide (21.0-32.0) mmol/L BUN (7.0-18.0) mg/dL Creatinine (0.6-1.0) mg/dL Est Cr Clr Drug Dosing Estimated GFR (MDRD) ml/min Glucose (74-106) mg/dL Calcium (8.5-10.1) mg/dL Total Bilirubin (0.2-1.0) mg/dL AST (15-37) IU/L ALT (14-63) IU/L Alkaline Phosphatase (46-116) U/L CK-MB (CK-2) (0-3.6) ng/mL Troponin I (0.000-0.056) ng/mL Total Protein (6.4-8.2) g/dL Albumin (3.4-5.0) g/dL Globulin (2.0-3.5) g/dL Albumin/Globulin Ratio (1.3-2.8) Urine Color DARK YELLOW Urine Appearance CLEAR Urine pH 7.5 (5.0-8.0) Ur Specific [place] 1.020 (1.001-1.035) Urine Protein TRACE (NEGATIVE) mg/dL Urine Glucose (UA) 500 H (NEGATIVE) mg/dL Urine Ketones NEGATIVE (NEGATIVE) mg/dL Urine Occult Blood NEGATIVE (NEGATIVE) Urine Nitrite NEGATIVE (NEGATIVE) Urine Bilirubin NEGATIVE (NEGATIVE) Urine Urobilinogen 0.2 (<2.0) EU/dL Ur Leukocyte Esterase NEGATIVE (NEGATIVE) Urine RBC 0-2 (0-2/HPF) Urine WBC 2-4 (0-5/HPF) Ur Epithelial Cells FEW (NONE-FEW) Amorphous Sediment FEW (NEGATIVE) Urine Bacteria FEW (NEGATIVE) Urine Yeast RARE Result Diagrams: 02/04/18 05:20 02/04/18 05:20 - Problem List (1) Colitis SNOMED Code(s): 24019629 ICD Code: K52.9 - NONINFECTIVE GASTROENTERITIS AND COLITIS, UNSPECIFIED Status: Acute Current Visit: Yes (2) Atypical chest pain SNOMED Code(s): 742938866 ICD Code: R07.89 - OTHER CHEST PAIN Status: Acute Current Visit: Yes (3) Colon cancer SNOMED Code(s): 342255302 ICD Code: C18.9 - MALIGNANT NEOPLASM OF COLON, UNSPECIFIED Status: Acute Priority: High Current Visit: Yes Qualifiers: Colon location: unspecified part of colon Qualified Code(s): C18.9 - Malignant neoplasm of colon, unspecified Problem List Initiated/Reviewed/Updated: Yes Orders Last 24hrs: Active Orders 24 hr Category Date Time Status Patient Status [ADT] Stat ADT 02/04/18 09:29 Active Blood Glucose Check, Bedside [RC] TIDMEALS Care 02/04/18 11:53 Active Cardiac Monitoring [RC] CONTINUOUS Care 02/04/18 11:54 Active EKG 12 Lead [EKG Documentation Completion] [RC] STAT Care 02/04/18 05:03 Active Height and Weight [RC] DAILY Care 02/04/18 11:53 Active Intake and Output [RC] QSHIFT Care 02/04/18 11:54 Active Notify Provider Vital Signs [RC] ASDIRECTED Care 02/04/18 11:54 Active Oxygen Therapy [RC] PRN Care 02/04/18 11:53 Active Pulse Oximetry [RC] PRN Care 02/04/18 11:54 Active RT Aerosol Therapy [RC] ASDIRECTED Care 02/04/18 11:56 Active Up With Assistance [RC] ASDIRECTED Care 02/04/18 11:53 Active VTE/DVT Education [RC] PER UNIT ROUTINE Care 02/04/18 11:53 Active Vital Signs [RC] Q4H Care 02/04/18 11:53 Active [place] [employer] Diet [DIET] Diet 02/04/18 Breakfast Active Chest 1V Frontal [CR] Stat Exams 02/04/18 05:03 Taken BASIC METABOLIC PANEL,BMP [CHEM] AM Lab 02/05/18 05:11 Ordered BASIC METABOLIC PANEL,BMP [CHEM] AM Lab 02/06/18 05:11 Ordered BASIC METABOLIC PANEL,BMP [CHEM] AM Lab 02/07/18 05:11 Ordered CBC WITH AUTO DIFF [HEME] AM Lab 02/05/18 05:11 Ordered CBC WITH AUTO DIFF [HEME] AM Lab 02/06/18 05:11 Ordered CBC WITH AUTO DIFF [HEME] AM Lab 02/07/18 05:11 Ordered CULTURE BLOOD [BC] Stat Lab 02/04/18 06:50 Received CULTURE BLOOD [BC] Stat Lab 02/04/18 06:56 Received LACTIC ACID,WHOLE BLOOD [BG] Q6H Lab 02/04/18 17:25 Ordered LACTIC ACID,WHOLE BLOOD [BG] Q6H Lab 02/04/18 23:25 Ordered MAGNESIUM [CHEM] Routine Lab 02/04/18 11:53 Ordered UA W/MICROSCOPIC [URIN] Routine Lab 02/04/18 10:41 Ordered Acetaminophen [Tylenol] Med 02/04/18 11:53 Active 650 mg PO Q4H PRN Albuterol/Ipratropium [DuoNeb 3.0-0.5 MG/3 ML] Med 02/04/18 11:53 Active 3 ml NEB Q4HRRT PRN Ciprofloxacin in D5W [Cipro in D5W 400 MG/200 ML] 400 Med 02/04/18 12:00 Active mg Premix Bag 1 bag IV Q12H Diltiazem HCl [Diltiazem 24Hr ER] Med 02/04/18 21:00 Ordered 360 mg PO BEDTIME Diphenhyd/Lidocaine/Nystatin [Magic Mouthwash] Med 02/04/18 11:58 Ordered 30 ml PO QID PRN Estrogens, Conjugated [Premarin] Med 02/04/18 12:00 Ordered DOSE mg .XX ASDIRECTED HYDROmorphone [Dilaudid] Med 02/04/18 11:58 Ordered DOSE mg PO Q4H PRN Heparin Sodium Med 02/04/18 12:00 Active 5,000 units SUBCUT Q12H Hydrochlorothiazide Med 02/04/18 12:00 Ordered 12.5 mg PO DAILY Insulin Glarg,Human.Rec.Analog [LantUS Solostar] Med 02/04/18 21:00 Ordered 60 units SUBCUT BEDTIME LORazepam [Ativan] Med 02/04/18 11:58 Ordered 1 mg PO QID PRN Loperamide [Imodium] Med 02/04/18 11:58 Unverified DOSE UNIT RTE FREQ PRN Loratadine [Claritin] Med 02/04/18 12:00 Ordered 10 mg PO DAILY Ondansetron [Zofran ODT] Med 02/04/18 11:58 Ordered 4 mg PO Q4H PRN Pantoprazole [ProTONIX] Med 02/04/18 18:00 Ordered 40 mg PO QPM Sodium Chloride 0.9% [Normal Saline] 1,000 ml Med 02/04/18 07:15 Active IV ASDIRECTED Sodium Chloride 0.9% [Normal Saline] 1,000 ml Med 02/04/18 09:30 Active IV ASDIRECTED Valsartan [Valsartan] Med 02/05/18 09:00 Ordered 160 mg PO QAM atorvaSTATin [Lipitor] Med 02/04/18 21:00 Ordered 20 mg PO BEDTIME metFORMIN [Glucophage] Med 02/04/18 17:00 Ordered 1,000 mg PO BIDMEALS metroNIDAZOLE/Normal Saline [Flagyl 500 MG in NS 100 ML Med 02/04/18 12:00 Active ] 500 mg Premix Bag 1 bag IV QID Blood Culture x2 Reflex Set [OM.PC] Stat Oth 02/04/18 06:43 Ordered Sequential Compression Device [OM.PC] Per Unit Routine Oth 02/04/18 11:54 Ordered Resuscitation Status Routine Resus Stat 02/04/18 11:53 Ordered Medication Orders Acetaminophen (Tylenol) 650 mg PO Q4H PRN PRN Reason: Pain (Mild 1-3)/fever Albuterol/Ipratropium (Duoneb 3.0-0.5 Mg/3 Ml) 3 ml NEB Q4HRRT PRN PRN Reason: Shortness Of Breath/wheezing Atorvastatin Calcium (Lipitor) 20 mg PO BEDTIME MARIA T Diphenhydramine/Nystatin/Lidocaine (Magic Mouthwash) 30 ml PO QID PRN PRN Reason: Pain Estrogens Conjugated (Premarin) mg .XX ASDIRECTED MARIA T Heparin Sodium (Porcine) (Heparin Sodium) 5,000 units SUBCUT Q12H MARIA T Hydrochlorothiazide (Hydrochlorothiazide) 12.5 mg PO DAILY [facility] Hydromorphone HCl (Dilaudid) mg PO Q4H PRN PRN Reason: Pain Sodium Chloride (Normal Saline) 1,000 mls @ 125 mls/hr IV ASDIRECTED [facility] Last Infusion: 02/04/18 08:40 Dose: 999 mls/hr Admin: 02/04/18 08:02 Dose: 125 mls/hr Sodium Chloride (Normal Saline) 1,000 mls @ 125 mls/hr IV ASDIRECTED [facility] Last Admin: 02/04/18 09:28 Dose: 125 mls/hr Ciprofloxacin/Dextrose 400 mg/ (Premix) 200 mls @ 200 mls/hr IV Q12H [facility] Metronidazole 500 mg/ Premix 100 mls @ 100 mls/hr IV QID [facility] Insulin Glargine (Lantus Solostar) 60 units SUBCUT BEDTIME [facility] Loratadine (Claritin) 10 mg PO DAILY [facility] Lorazepam (Ativan) 1 mg PO QID PRN PRN Reason: Anxiety Non-Formulary Medication (Diltiazem Hcl [Diltiazem 24hr Er]) 360 mg PO BEDTIME MARIA T Non-Formulary Medication (Metformin [Glucophage]) 1,000 mg PO BIDMEALS [facility] Non-Formulary Medication (Valsartan [Valsartan]) 160 mg PO QAM [facility] Ondansetron HCl (Zofran Odt) 4 mg PO Q4H PRN PRN Reason: Nausea/Vomiting Pantoprazole Sodium (Protonix) 40 mg PO QPM [facility] Assessment/Plan Comment:: 57-year-old female that is being admitted with abdominal pain secondary to colitis. #1. Colitis: -Abdomen/pelvis CT shows stranding in the left pericolic gutter consistent with colitis. -Patient will be started on IV ciprofloxacin 400 mg twice a day and IV Flagyl 500 mg 4 times a day. -Difficult to assess her white count is she recently received Neulasta following chemotherapy treatment. -Blood cultures are pending. #2. Chest pain: -Initial troponin was negative. Will trend troponins. -Patient will be placed on telemetry. #3. Lactic acidosis: -Initial lactate was 4.2. Repeat lactate 6 hours later was 3.5. Will trend until <2. -Continue with IV fluids and antibiotics for her colitis. -Blood cultures are pending. #4. Leukocytosis: -Patient received Neulasta 2 days ago following her chemotherapy treatment. DVT prophylaxis: SCDs and heparin. Disposition: 2-4 days pending improvement.
[2018-02-04] MEDS: Heparin Sodium 5,000 Units/ML Vial SUBCUT SCH ×2 (12:55→23:42)
[2018-02-04] MEDS: metroNIDAZOLE/Normal Saline 500 MG in Premix Bag 1 BAG IV SCH ×3 (13:00→23:40)
[2018-02-04] MEDS: Ciprofloxacin in D5W 400 MG in Premix Bag 1 BAG IV SCH ×2 (13:02)
[2018-02-04] MEDS: Hydrochlorothiazide 12.5 MG Cap PO SCH (13:03)
[2018-02-04] MEDS: Loratadine 10 MG Tab PO SCH (13:03)
[2018-02-04] MEDS: Insulin Aspart 100 Units/ML 3 ML Pen SUBCUT SCH ×2 (13:15→17:49)
[2018-02-04] MEDS: metFORMIN 500 MG Tab PO SCH ×2 (13:25→17:49)
[2018-02-04] MEDS: Ondansetron 4 MG Tab.DIS PO PRN ×2 (14:24→21:17)
--- NOTE | 2018-02-04 15:33 | CR ---
EXAM DATE: 02/04/18 PATIENT'S AGE: 57 Patient: JOCELYNN SANTIAGO Facility: [place], [place] Site . Site : [id number] Study: XRay Chest [id number]/4/2018 5:40:41 AM Ordering Physician: Doctor Esparza Final Report: Indication: Chest pain Technique: Chest 1 view Comparison: August 27, 2017. Findings/Impression: Left-sided Port-A-Cath tip projects at the level of the cavoatrial junction. The lungs and pleural spaces are clear. Cardiomediastinal silhouette is stable. Osseous structures are intact. Dictated by Ailin Steven MD @ Feb 04 2018 5:44AM (Electronic Signature) Report Signed by Proxy. MIRTA
[2018-02-04] MEDS: Pantoprazole 40 MG Tab.CR PO SCH (18:03)
[2018-02-04] MEDS ORDERED: Sodium Chloride 0.9% 500 ML IV ONE (19:15)
[2018-02-04] MEDS: Insulin Glargine,Human Rec. Analog 100 Units/ML 3 ML Pen SUBCUT SCH (21:50)
[2018-02-04] MEDS: atorvaSTATin 20 MG Tab PO SCH (21:54)
[2018-02-04] MEDS: Diltiazem 120 MG Cap.CD PO SCH (21:54)
[2018-02-05] MEDS: Ciprofloxacin in D5W 400 MG in Premix Bag 1 BAG IV SCH ×4 (00:40→11:50)
[2018-02-05] MEDS: Ondansetron 4 MG Tab.DIS PO PRN ×2 (01:56→13:09)
[2018-02-05] MEDS: Sodium Chloride 0.9% 1,000 ML IV SCH ×3 (04:19→17:36)
[2018-02-05] MEDS ORDERED: Sodium Chloride 0.9% 1,000 ML IV ONE (05:51)
[2018-02-05] MEDS: metroNIDAZOLE/Normal Saline 500 MG in Premix Bag 1 BAG IV SCH ×4 (06:27→23:09)
[2018-02-05 06:31] LABS: CHLORIDE,CL 102 mmol/L (98-107); SODIUM,NA 137 mmol/L (136-145)
[2018-02-05] MEDS: Insulin Aspart 100 Units/ML 3 ML Pen SUBCUT SCH ×3 (07:05→17:28)
[2018-02-05] MEDS: Loratadine 10 MG Tab PO SCH (08:23)
[2018-02-05] MEDS: Hydrochlorothiazide 12.5 MG Cap PO SCH (08:24)
[2018-02-05] MEDS: metFORMIN 500 MG Tab PO SCH ×2 (11:51→17:36)
[2018-02-05] MEDS: Heparin Sodium 5,000 Units/ML Vial SUBCUT SCH ×2 (11:51→23:10)
--- NOTE | 2018-02-05 14:01 | PCM.PN ---
- Review of Systems Systems Review Comment:: feeling better, abdominal pain improving - Patient Data Vitals - Most Recent: Last Vital Signs Temp 36.1 C 02/05/18 12:00 Pulse 65 02/05/18 12:00 Resp 14 02/05/18 12:00 BP 153/77 H 02/05/18 12:00 Pulse Ox 99 02/05/18 12:00 Weight - Most Recent: 71.441 kg I&O - Last 24 Hours: Intake & Output 02/04/18 02/05/18 02/05/18 22:59 06:59 14:59 Intake Total 1057 2007 100 Output Total 900 1900 Balance 157 107 100 Lab Results Last 24 Hours: Laboratory Results - last 24 hr 02/04/18 02/04/18 02/04/18 Range/Units 11:43 17:17 17:17 WBC (4.0-11.0) K/uL RBC (4.30-5.90) M/uL Hgb (12.0-16.0) g/dL Hct (36.0-46.0) % MCV (80.0-98.0) fL MCH (27.0-32.0) pg MCHC (31.0-37.0) g/dL RDW Std Deviation (28.0-62.0) fl RDW Coeff of Ej (11.0-15.0) % Plt Count (150-400) K/uL MPV (7.40-12.00) fL Add Manual Diff Neutrophils % (Manual) (48.0-80.0) % Band Neutrophils % % Lymphocytes % (Manual) (16.0-40.0) % Nucleated RBC % /100WBC Absolute Seg Neuts (1.4-5.7) Band Neutrophils # Lymphocytes # (Manual) (0.6-2.4) Nucleated RBCs # K/uL Lactate 3.9 H (0.20-2.00) mmol/L Sodium (136-145) mmol/L Potassium (3.5-5.1) mmol/L Chloride (98-107) mmol/L Carbon Dioxide (21.0-32.0) mmol/L BUN (7.0-18.0) mg/dL Creatinine (0.6-1.0) mg/dL Est Cr Clr Drug Dosing mL/min Estimated GFR (MDRD) ml/min Glucose (74-106) mg/dL POC Glucose 274 H (60-110) mg/dL Calcium (8.5-10.1) mg/dL Troponin I < 0.050 (0.000-0.056) ng/mL 02/04/18 02/04/18 02/04/18 Range/Units 17:47 21:41 23:28 WBC (4.0-11.0) K/uL RBC (4.30-5.90) M/uL Hgb (12.0-16.0) g/dL Hct (36.0-46.0) % MCV (80.0-98.0) fL MCH (27.0-32.0) pg MCHC (31.0-37.0) g/dL RDW Std Deviation (28.0-62.0) fl RDW Coeff of Ej (11.0-15.0) % Plt Count (150-400) K/uL MPV (7.40-12.00) fL Add Manual Diff Neutrophils % (Manual) (48.0-80.0) % Band Neutrophils % % Lymphocytes % (Manual) (16.0-40.0) % Nucleated RBC % /100WBC Absolute Seg Neuts (1.4-5.7) Band Neutrophils # Lymphocytes # (Manual) (0.6-2.4) Nucleated RBCs # K/uL Lactate 4.9 H (0.20-2.00) mmol/L Sodium (136-145) mmol/L Potassium (3.5-5.1) mmol/L Chloride (98-107) mmol/L Carbon Dioxide (21.0-32.0) mmol/L BUN (7.0-18.0) mg/dL Creatinine (0.6-1.0) mg/dL Est Cr Clr Drug Dosing mL/min Estimated GFR (MDRD) ml/min Glucose (74-106) mg/dL POC Glucose 193 H 188 H (60-110) mg/dL Calcium (8.5-10.1) mg/dL Troponin I (0.000-0.056) ng/mL 02/05/18 02/05/18 02/05/18 Range/Units 06:05 06:05 06:05 WBC 38.95 H (4.0-11.0) K/uL RBC 3.70 L (4.30-5.90) M/uL Hgb 12.0 (12.0-16.0) g/dL Hct 35.7 L (36.0-46.0) % MCV 96.5 (80.0-98.0) fL MCH 32.4 H (27.0-32.0) pg MCHC 33.6 (31.0-37.0) g/dL RDW Std Deviation 58.1 (28.0-62.0) fl RDW Coeff of Ej 17 H (11.0-15.0) % Plt Count 141 L (150-400) K/uL MPV 9.00 (7.40-12.00) fL Add Manual Diff YES Neutrophils % (Manual) 88 H (48.0-80.0) % Band Neutrophils % 4 % Lymphocytes % (Manual) 8 L (16.0-40.0) % Nucleated RBC % 0.0 /100WBC Absolute Seg Neuts 34.3 H (1.4-5.7) Band Neutrophils # 1.6 Lymphocytes # (Manual) 3.1 H (0.6-2.4) Nucleated RBCs # 0 K/uL Lactate 2.2 H (0.20-2.00) mmol/L Sodium 137 (136-145) mmol/L Potassium 4.1 (3.5-5.1) mmol/L Chloride 102 (98-107) mmol/L Carbon Dioxide 27.1 (21.0-32.0) mmol/L BUN 14 (7.0-18.0) mg/dL Creatinine 0.9 (0.6-1.0) mg/dL Est Cr Clr Drug Dosing 55.20 mL/min Estimated GFR (MDRD) > 60.0 ml/min Glucose 168 H (74-106) mg/dL POC Glucose (60-110) mg/dL Calcium 8.3 L (8.5-10.1) mg/dL Troponin I (0.000-0.056) ng/mL 02/05/18 02/05/18 Range/Units 06:22 11:49 WBC (4.0-11.0) K/uL RBC (4.30-5.90) M/uL Hgb (12.0-16.0) g/dL Hct (36.0-46.0) % MCV (80.0-98.0) fL MCH (27.0-32.0) pg MCHC (31.0-37.0) g/dL RDW Std Deviation (28.0-62.0) fl RDW Coeff of Ej (11.0-15.0) % Plt Count (150-400) K/uL MPV (7.40-12.00) fL Add Manual Diff Neutrophils % (Manual) (48.0-80.0) % Band Neutrophils % % Lymphocytes % (Manual) (16.0-40.0) % Nucleated RBC % /100WBC Absolute Seg Neuts (1.4-5.7) Band Neutrophils # Lymphocytes # (Manual) (0.6-2.4) Nucleated RBCs # K/uL Lactate (0.20-2.00) mmol/L Sodium (136-145) mmol/L Potassium (3.5-5.1) mmol/L Chloride (98-107) mmol/L Carbon Dioxide (21.0-32.0) mmol/L BUN (7.0-18.0) mg/dL Creatinine (0.6-1.0) mg/dL Est Cr Clr Drug Dosing mL/min Estimated GFR (MDRD) ml/min Glucose (74-106) mg/dL POC Glucose 149 H 167 H (60-110) mg/dL Calcium (8.5-10.1) mg/dL Troponin I (0.000-0.056) ng/mL Guru Results Last 24 Hours: Microbiology 02/04/18 06:56 Aerobic Blood Culture - Preliminary Blood - Venous - Lab Draw NO GROWTH AFTER 1 DAY Anaerobic Blood Culture - Preliminary NO GROWTH AFTER 1 DAY 02/04/18 06:50 Aerobic Blood Culture - Preliminary Blood - Venous NO GROWTH AFTER 1 DAY Anaerobic Blood Culture - Preliminary NO GROWTH AFTER 1 DAY Med Orders - Current: Current Medications Acetaminophen (Tylenol) 650 mg PO Q4H PRN PRN Reason: Pain (Mild 1-3)/fever Albuterol/Ipratropium (Duoneb 3.0-0.5 Mg/3 Ml) 3 ml NEB Q4HRRT PRN PRN Reason: Shortness Of Breath/wheezing Atorvastatin Calcium (Lipitor) 20 mg PO BEDTIME MARIA T Last Admin: 02/04/18 21:54 Dose: 20 mg Diltiazem HCl (Cardizem Cd) 360 mg PO BEDTIME [facility] Last Admin: 02/04/18 21:54 Dose: 360 mg Diphenhydramine/Nystatin/Lidocaine (Magic Mouthwash) 30 ml PO QID PRN PRN Reason: Pain Heparin Sodium (Porcine) (Heparin Sodium) 5,000 units SUBCUT Q12H [facility] Last Admin: 02/05/18 11:51 Dose: 5,000 units Hydrochlorothiazide (Hydrochlorothiazide) 12.5 mg PO DAILY [facility] Last Admin: 02/05/18 08:24 Dose: 12.5 mg Hydromorphone HCl (Dilaudid) 2 mg PO Q4H PRN PRN Reason: Pain Last Admin: 02/05/18 07:34 Dose: 2 mg Sodium Chloride (Normal Saline) 1,000 mls @ 125 mls/hr IV ASDIRECTED [facility] Last Infusion: 02/04/18 08:40 Dose: 999 mls/hr Sodium Chloride (Normal Saline) 1,000 mls @ 125 mls/hr IV ASDIRECTED [facility] Last Admin: 02/05/18 08:30 Dose: 125 mls/hr Ciprofloxacin/Dextrose 400 mg/ (Premix) 200 mls @ 200 mls/hr IV Q12H [facility] Last Admin: 02/05/18 11:50 Dose: 200 mls/hr Metronidazole 500 mg/ Premix 100 mls @ 100 mls/hr IV QID [facility] Last Admin: 02/05/18 11:50 Dose: 100 mls/hr Insulin Aspart (Novolog) 0 unit SUBCUT TIDAC [facility]; Protocol Last Admin: 02/05/18 12:31 Dose: 2 units Insulin Glargine (Lantus Solostar) 60 units SUBCUT BEDTIME [facility] Last Admin: 02/04/18 21:50 Dose: 30 units Loratadine (Claritin) 10 mg PO DAILY [facility] Last Admin: 02/05/18 08:23 Dose: 10 mg Lorazepam (Ativan) 1 mg PO QID PRN PRN Reason: Anxiety Metformin HCl (Glucophage) 1,000 mg PO BIDMEALS@1200,1700 [facility] Last Admin: 02/05/18 11:51 Dose: 1,000 mg Ondansetron HCl (Zofran Odt) 4 mg PO Q4H PRN PRN Reason: Nausea/Vomiting Last Admin: 02/05/18 13:09 Dose: 4 mg Pantoprazole Sodium (Protonix) 40 mg PO QPM [facility] Last Admin: 02/04/18 18:03 Dose: 40 mg Estrogens 1 each VAG Q48H [facility] Last Admin: 02/04/18 15:16 Dose: Not Given Valsartan (Diovan) 160 mg PO QAM [facility] Last Admin: 02/05/18 08:24 Dose: 160 mg Discontinued Medications Sodium Chloride (Normal Saline) 500 mls @ 999 mls/hr IV STAT ONE Stop: 02/04/18 19:45 Last Admin: 02/04/18 19:49 Dose: 999 mls/hr Sodium Chloride (Normal Saline) 1,000 mls @ 999 mls/hr IV .Bolus ONE Stop: 02/05/18 06:51 Last Admin: 02/05/18 06:05 Dose: 999 mls/hr - Exam General: Alert, Oriented Lungs: Clear to Auscultation, Normal Respiratory Effort Cardiovascular: Regular Rate, Regular Rhythm GI/Abdominal Exam: Soft, Non-Tender Extremities: Non-Tender, No Pedal Edema Skin: Warm, Dry, Intact Neurological: No New Focal Deficit - Problem List Review Problem List Initiated/Reviewed/Updated: Yes - Plan Plan:: 57-year-old female that is being admitted with abdominal pain secondary to colitis. Colitis: continue ciprofloxacin and flagyl, lactic acidosis resolving
[2018-02-05] MEDS: Pantoprazole 40 MG Tab.CR PO SCH (17:36)
[2018-02-05] MEDS ORDERED: Loperamide 2 MG Cap PO PRN (18:15)
[2018-02-05] MEDS: atorvaSTATin 20 MG Tab PO SCH (20:40)
[2018-02-05] MEDS: Diltiazem 120 MG Cap.CD PO SCH (20:41)
[2018-02-05] MEDS: Insulin Glargine,Human Rec. Analog 100 Units/ML 3 ML Pen SUBCUT SCH (21:01)
[2018-02-06] MEDS: Ciprofloxacin in D5W 400 MG in Premix Bag 1 BAG IV SCH ×2 (00:20)
[2018-02-06] MEDS: Sodium Chloride 0.9% 1,000 ML IV SCH (04:55)
[2018-02-06] MEDS: metroNIDAZOLE/Normal Saline 500 MG in Premix Bag 1 BAG IV SCH (05:00)
[2018-02-06 05:25] LABS: CHLORIDE,CL 102 mmol/L (98-107); SODIUM,NA 137 mmol/L (136-145)
[2018-02-06] MEDS: Insulin Aspart 100 Units/ML 3 ML Pen SUBCUT SCH (07:49)
[2018-02-06 07:50] VITALS: BP 142/78
[2018-02-06] MEDS: Loratadine 10 MG Tab PO SCH (09:08)
[2018-02-06] MEDS: Hydrochlorothiazide 12.5 MG Cap PO SCH (09:08)
--- NOTE | 2018-02-06 09:09 | PCM.DCSUM1 ---
Discharge Summary - Discharge Data Discharge Date: 02/06/18 Discharge Disposition: Home, Self-Care 01 Condition: Good - Patient Summary/Data Hospital Course: 57-year-old female with colon cancer who was admitted for colitis. She presented with abdominal pain and nausea. She finished her last round of chemotherapy 2 days prior to admission and had received a Neulasta injection. She was found to have a white blood cell count of 40,900, CMP shows an elevated ALP of 204 and a BUN of 25. Her lactate was 4.2. CT abdomen/pelvis showed some stranding in the left pericolic gutter suggesting colitis. She was treated with Ciprofloxacin and Flagyl. With IV fluids her lactic acid levels normalized. Today her symptoms have resolved and patient is requesting discharge home. She was discharged home with ten more days of Ciprofloxacin and Flagyl. [facility] - Patient Instructions Diet: Usual Diet as Tolerated - Discharge Plan Prescriptions/Med Rec: Ciprofloxacin HCl [Cipro] 500 mg PO BID #20 tablet metroNIDAZOLE [Flagyl] 500 mg PO Q8H #30 tab Home Medications: Home Meds Diltiazem HCl [Diltiazem 24Hr ER] 360 mg PO BEDTIME 05/09/14 [History] Hydrochlorothiazide 12.5 mg PO DAILY 05/09/14 [History] atorvaSTATin Calcium [Atorvastatin Calcium] 20 mg PO BEDTIME 05/09/14 [History] metFORMIN [Glucophage] 1,000 mg PO BIDMEALS 05/09/14 [History] HYDROmorphone [Dilaudid] 1 - 2 tab PO Q4H PRN 10/27/15 [History] Loratadine 10 mg PO DAILY 10/27/15 [History] Valsartan 160 mg PO QAM 10/27/15 [History] LORazepam [Ativan] 1 mg PO QID PRN 12/26/15 [History] Ondansetron [Zofran ODT] 4 mg PO Q4H PRN #14 tab.dis 05/07/17 [Rx] Insulin Glarg,Human.Rec.Analog [LantUS Solostar] 60 units SUBCUT BEDTIME [History] Pantoprazole [ProTONIX] 40 mg PO QPM 08/06/17 [History] Diphenhyd/Lidocaine/Nystatin [Magic Mouthwash] 30 ml PO QID PRN 02/04/18 [ History] Estrogens, Conjugated [Premarin] 1 applic VAG ASDIRECTED 02/04/18 [History] Insulin Aspart [NovoLOG] 14 unit SUBCUT TID 02/04/18 [History] Loperamide [Imodium] 2 mg PO Q4H PRN 02/04/18 [History] traZODone HCl [Trazodone HCl] 100 mg PO BEDTIME 02/04/18 [History] Ciprofloxacin HCl [Cipro] 500 mg PO BID #20 tablet 02/06/18 [Rx] metroNIDAZOLE [Flagyl] 500 mg PO Q8H #30 tab 02/06/18 [Rx] Forms: ED Department Discharge Referrals: PCP,None [Primary Care Provider] - - Patient Data Vitals - Most Recent: Last Vital Signs Temp 36.4 C 02/06/18 07:49 Pulse 69 02/06/18 07:49 Resp 18 02/06/18 07:49 BP 142/78 H 02/06/18 07:49 Pulse Ox 99 02/06/18 07:49 Weight - Most Recent: 156.9 kg I&O - Last 24 hours: Intake & Output 02/05/18 02/06/18 02/06/18 22:59 06:59 14:59 Intake Total 400 550 Output Total 1800 2000 Balance -1400 -1450 Lab Results - Last 24 hrs: Laboratory Results - last 24 hr 02/05/18 02/05/18 02/05/18 Range/Units 11:49 16:06 22:43 WBC (4.0-11.0) K/uL RBC (4.30-5.90) M/uL Hgb (12.0-16.0) g/dL Hct (36.0-46.0) % MCV (80.0-98.0) fL MCH (27.0-32.0) pg MCHC (31.0-37.0) g/dL RDW Std Deviation (28.0-62.0) fl RDW Coeff of Ej (11.0-15.0) % Plt Count (150-400) K/uL MPV (7.40-12.00) fL Add Manual Diff Neutrophils % (Manual) (48.0-80.0) % Band Neutrophils % % Lymphocytes % (Manual) (16.0-40.0) % Absolute Seg Neuts (1.4-5.7) Band Neutrophils # Lymphocytes # (Manual) (0.6-2.4) Lactate 2.3 H 2.9 H (0.20-2.00) mmol/L Sodium (136-145) mmol/L Potassium (3.5-5.1) mmol/L Chloride (98-107) mmol/L Carbon Dioxide (21.0-32.0) mmol/L BUN (7.0-18.0) mg/dL Creatinine (0.6-1.0) mg/dL Est Cr Clr Drug Dosing mL/min Estimated GFR (MDRD) ml/min Glucose (74-106) mg/dL POC Glucose 167 H (60-110) mg/dL Calcium (8.5-10.1) mg/dL 02/06/18 02/06/18 02/06/18 Range/Units 05:00 05:00 05:00 WBC 17.24 H (4.0-11.0) K/uL RBC 3.57 L (4.30-5.90) M/uL Hgb 11.7 L (12.0-16.0) g/dL Hct 34.8 L (36.0-46.0) % MCV 97.5 (80.0-98.0) fL MCH 32.8 H (27.0-32.0) pg MCHC 33.6 (31.0-37.0) g/dL RDW Std Deviation 54.9 (28.0-62.0) fl RDW Coeff of Ej 16 H (11.0-15.0) % Plt Count 113 L (150-400) K/uL MPV 8.80 (7.40-12.00) fL Add Manual Diff YES Neutrophils % (Manual) 64 (48.0-80.0) % Band Neutrophils % 3 % Lymphocytes % (Manual) 33 (16.0-40.0) % Absolute Seg Neuts 11.0 H (1.4-5.7) Band Neutrophils # 0.5 Lymphocytes # (Manual) 5.7 H (0.6-2.4) Lactate 1.7 (0.20-2.00) mmol/L Sodium 137 (136-145) mmol/L Potassium 3.3 L (3.5-5.1) mmol/L Chloride 102 (98-107) mmol/L Carbon Dioxide 26.5 (21.0-32.0) mmol/L BUN 7 (7.0-18.0) mg/dL Creatinine 0.9 (0.6-1.0) mg/dL Est Cr Clr Drug Dosing 54.72 mL/min Estimated GFR (MDRD) > 60.0 ml/min Glucose 168 H (74-106) mg/dL POC Glucose (60-110) mg/dL Calcium 8.0 L (8.5-10.1) mg/dL [place] Results - Last 24 hrs: Microbiology 02/04/18 06:56 Aerobic Blood Culture - Preliminary Blood - Venous - Lab Draw NO GROWTH AFTER 2 DAYS Anaerobic Blood Culture - Preliminary NO GROWTH AFTER 2 DAYS 02/04/18 06:50 Aerobic Blood Culture - Preliminary Blood - Venous NO GROWTH AFTER 2 DAYS Anaerobic Blood Culture - Preliminary NO GROWTH AFTER 2 DAYS Med Orders - Current: Current Medications Acetaminophen (Tylenol) 650 mg PO Q4H PRN PRN Reason: Pain (Mild 1-3)/fever Albuterol/Ipratropium (Duoneb 3.0-0.5 Mg/3 Ml) 3 ml NEB Q4HRRT PRN PRN Reason: Shortness Of Breath/wheezing Atorvastatin Calcium (Lipitor) 20 mg PO BEDTIME [facility] Last Admin: 02/05/18 20:40 Dose: 20 mg Diltiazem HCl (Cardizem Cd) 360 mg PO BEDTIME [facility] Last Admin: 02/05/18 20:41 Dose: 360 mg Diphenhydramine/Nystatin/Lidocaine (Magic Mouthwash) 30 ml PO QID PRN PRN Reason: Pain Heparin Sodium (Porcine) (Heparin Sodium) 5,000 units SUBCUT Q12H [facility] Last Admin: 02/05/18 23:10 Dose: 5,000 units Hydrochlorothiazide (Hydrochlorothiazide) 12.5 mg PO DAILY [facility] Last Admin: 02/05/18 08:24 Dose: 12.5 mg Hydromorphone HCl (Dilaudid) 2 mg PO Q4H PRN PRN Reason: Pain Last Admin: 02/05/18 07:34 Dose: 2 mg Sodium Chloride (Normal Saline) 1,000 mls @ 125 mls/hr IV ASDIRECTED [facility] Last Admin: 02/06/18 04:55 Dose: 999 mls/hr Sodium Chloride (Normal Saline) 1,000 mls @ 125 mls/hr IV ASDIRECTED [facility] Last Admin: 02/05/18 17:36 Dose: 125 mls/hr Ciprofloxacin/Dextrose 400 mg/ (Premix) 200 mls @ 200 mls/hr IV Q12H [facility] Last Admin: 02/06/18 00:20 Dose: 200 mls/hr Metronidazole 500 mg/ Premix 100 mls @ 100 mls/hr IV QID [facility] Last Admin: 02/06/18 05:00 Dose: 100 mls/hr Insulin Aspart (Novolog) 0 unit SUBCUT TIDAC [facility]; Protocol Last Admin: 02/06/18 07:49 Dose: Not Given Insulin Glargine (Lantus Solostar) 60 units SUBCUT BEDTIME [facility] Last Admin: 02/05/18 21:01 Dose: Not Given Loperamide HCl (Imodium) 2 mg PO Q4H PRN PRN Reason: Diarrhea Loratadine (Claritin) 10 mg PO DAILY [facility] Last Admin: 02/05/18 08:23 Dose: 10 mg Lorazepam (Ativan) 1 mg PO QID PRN PRN Reason: Anxiety Metformin HCl (Glucophage) 1,000 mg PO BIDMEALS@1200,1700 [facility] Last Admin: 02/05/18 17:36 Dose: 1,000 mg Ondansetron HCl (Zofran Odt) 4 mg PO Q4H PRN PRN Reason: Nausea/Vomiting Last Admin: 02/05/18 13:09 Dose: 4 mg Pantoprazole Sodium (Protonix) 40 mg PO QPM [facility] Last Admin: 02/05/18 17:36 Dose: 40 mg Estrogens 1 each VAG Q48H [facility] Last Admin: 02/04/18 15:16 Dose: Not Given Valsartan (Diovan) 160 mg PO QAM [facility] Last Admin: 02/05/18 08:24 Dose: 160 mg Discontinued Medications Sodium Chloride (Normal Saline) 500 mls @ 999 mls/hr IV STAT ONE Stop: 02/04/18 19:45 Last Admin: 02/04/18 19:49 Dose: 999 mls/hr Sodium Chloride (Normal Saline) 1,000 mls @ 999 mls/hr IV .Bolus ONE Stop: 02/05/18 06:51 Last Admin: 02/05/18 06:05 Dose: 999 mls/hr
== END 2018-02-06 10:20 | disposition home or self-care (01) | DRG 392 ==
LOC: MW.ED 04:52 → MW.MS 09:32
PROVIDERS: ADMIT Internal Medicine; ATTEND Internal Medicine
DX: K52.9 Noninfective gastroenteritis and colitis, unspecified (principal); C18.9 Malignant neoplasm of colon, unspecified; C78.7 Secondary malignant neoplasm of liver and intrahepatic bile duct; E87.2 Acidosis; I10 Essential (primary) hypertension; E78.5 Hyperlipidemia, unspecified; I48.91 Unspecified atrial fibrillation; D72.829 Elevated white blood cell count, unspecified; E11.9 Type 2 diabetes mellitus without complications; K21.9 Gastro-esophageal reflux disease without esophagitis; R07.9 Chest pain, unspecified; F41.8 Other specified anxiety disorders; Z88.8 Allergy status to other drugs, medicaments and biological substances; Z79.899 Other long term (current) drug therapy; Z79.4 Long term (current) use of insulin
CPT/HCPCS: 36415; 71045; 71045-26; 74176; 74176-26; 80048; 80053; 81001; 82553; 82962; 83605; 83735; 84484; 85025; 87040; 93005; 96360; 96361; 99285-25; A9270-GY; J0744; J1644; J1815-GY; J7040

== ENCOUNTER 2018-12-30 18:46 | Emergency (ER) | payer OTHER ==
--- NOTE | 2018-12-30 18:51 | EDM.PDOC ---
ED HPI GENERAL MEDICAL PROBLEM - General Chief Complaint: Chest Pain Stated Complaint: PT NAUSEA Time Seen by Provider: 12/30/18 18:49 - History of Present Illness INITIAL COMMENTS - FREE TEXT/NARRATIVE: HISTORY AND PHYSICAL: History of present illness: Patient 58-year-old white female history of advanced metastatic colon cancer who presents with a concern of chest pain and generalized weakness after chemotherapy today she denies shortness of breath, no fever chills or other complaints she did make her caretakers aware of this at chemotherapy. Review of systems: As per history of present illness and below otherwise all systems reviewed and negative. Past medical history: As per history of present illness and as reviewed below otherwise noncontributory. Surgical history: As per history of present illness and as reviewed below otherwise noncontributory. Social history: No reported history of drug or alcohol abuse. Family history: As per history of present illness and as reviewed below otherwise noncontributory. Physical exam: HEENT: Atraumatic, normocephalic, pupils reactive, negative for conjunctival pallor or scleral icterus, mucous membranes moist, throat clear, neck supple, nontender, trachea midline. Lungs: Clear to auscultation, breath sounds equal bilaterally, chest nontender. Heart: S1S2, regular, negative for clicks, rubs, or JVD. Abdomen: Soft, nondistended, nontender. Negative for masses or hepatosplenomegaly. Negative for costovertebral tenderness. Pelvis: Stable nontender. Genitourinary: Deferred. Rectal: Deferred. Extremities: Atraumatic, negative for cords or calf pain. Neurovascular unremarkable. Neuro: Awake, alert, oriented. Cranial nerves II through XII unremarkable. Cerebellum unremarkable. Motor and sensory unremarkable throughout. Exam nonfocal. Diagnostics CBC CMP troponin PT/INR chest x-ray EKG Therapeutics: IV O2 monitor Impression: #1 history of metastatic colon cancer #2 atypical chest pain Definitive disposition and diagnosis as appropriate pending reevaluation and review of above. chest and back Pain Score (Numeric/FACES): 7 - Related Data Allergies Allergy/AdvReac Type Severity Reaction Status Date / Time hydrocodone Allergy Unknown Hives Verified 05/12/18 01:00 ibuprofen Allergy Unknown Hives Verified 05/12/18 01:00 morphine Allergy Unknown Seizure Verified 05/12/18 01:00 nitroglycerin Allergy Unknown Difficulty Verified 05/12/18 01:00 Breathing caffeine Allergy Vomiting Verified 05/12/18 01:00 diphenhydramine HCl Allergy Excitabilit Verified 05/12/18 01:00 [From Beatriz] y Home Meds: Home Meds Diltiazem HCl [Diltiazem 24Hr ER] 360 mg PO BEDTIME 05/09/14 [History] atorvaSTATin Calcium [Atorvastatin Calcium] 20 mg PO BEDTIME 05/09/14 [History] hydroCHLOROthiazide [Hydrochlorothiazide] 12.5 mg PO DAILY 05/09/14 [History] metFORMIN [Glucophage] 1,000 mg PO BIDMEALS 05/09/14 [History] HYDROmorphone [Dilaudid] 1 - 2 tab PO Q4H PRN 10/27/15 [History] Loratadine 10 mg PO DAILY 10/27/15 [History] Valsartan 160 mg PO QAM 10/27/15 [History] LORazepam [Ativan] 1 mg PO Q6H PRN 12/26/15 [History] Ondansetron [Zofran ODT] 4 mg PO Q4H PRN #14 tab.dis 05/07/17 [Rx] Insulin Glarg,Human.Rec.Analog [LantUS Solostar] 50 units SUBCUT BEDTIME [History] Pantoprazole [ProTONIX] 40 mg PO BIDAC 08/06/17 [History] Estrogens, Conjugated [Premarin] 2 gram VAG Q48H 02/04/18 [History] Insulin Aspart [NovoLOG] 14 unit SUBCUT TID 02/04/18 [History] Dexamethasone 8 mg PO DAILY 05/12/18 [History] Capecitabine 500 mg PO BID 07/20/18 [History] Diphenhyd/Lidocaine/Nystatin [Magic Mouthwash] 30 ml PO Q6H PRN MDD Mouth/ Throat pain 07/20/18 [History] Loperamide [Imodium] 2 mg PO Q6H PRN MDD loose stool 07/20/18 [History] Megestrol Acetate 200 mg PO DAILY 07/20/18 [History] Prochlorperazine Maleate [Compazine] 10 mg PO Q6H PRN 07/20/18 [History] Calcium Carbonate/Vitamin D3 [Caltrate 600+D 1500 MG-400 Units] 1 tab PO DAILY 30 Days #30 tablet 07/22/18 [Rx] Furosemide [Lasix] 40 mg PO DAILY 30 Days #30 tab 07/22/18 [Rx] Potassium Chloride 20 meq PO DAILY 30 Days #30 tablet.er 07/22/18 [Rx] Vancomycin [First-Vancomycin 25 Compounding Kit] 125 mg PO QID 8 Days #1 bottle 07/22/18 [Rx] Past Medical History HEENT History: Reports: Impaired Vision Other HEENT History: wears glasses Cardiovascular History: Reports: High Cholesterol, Hypertension Respiratory History: Reports: None Gastrointestinal History: Reports: GERD Other Gastrointestinal History: hernia, colon CA Genitourinary History: Reports: UTI, Recurrent VP TALENT MANAGEMENT History: Reports: , Other (See Below) Other VP TALENT MANAGEMENT History: x2 Musculoskeletal History: Reports: None Neurological History: Reports: None Psychiatric History: Reports: Anxiety, Depression Endocrine/Metabolic History: Reports: Diabetes, Type II Hematologic History: Reports: None Immunologic History: Reports: None Oncologic (Cancer) History: Reports: Colon, Liver, Metastatic Dermatologic History: Reports: None - Infectious Disease History Infectious Disease History: Reports: Measles - Past Surgical History HEENT Surgical History: Reports: Adenoidectomy, Tonsillectomy GI Surgical History: Reports: Cholecystectomy, Colon, Hernia Repair/Other Other GI Surgeries/Procedures: colectomy x2 Female Surgical History: Reports: Section, Hysterectomy, Salpingo- Oophorectomy Other Female Surgeries/Procedures: X2 Endocrine Surgical History: Reports: None Musculoskeletal Surgical History: Reports: None, Other (See Below) Other Musculoskeletal Surgeries/Procedures:: rigth knee pain Oncologic Surgical History: Reports: Other (See Below) Other Oncologic Surgeries/Procedures: presently on chemo treatment last done on February 02, 2018. Dermatological Surgical History: Reports: None Social & Family History - Family History Family Medical History: Noncontributory GI: Reports: None - Caffeine Use Caffeine Use: Reports: Soda ED ROS GENERAL - Review of Systems Review Of Systems: ROS reveals no pertinent complaints other than HPI. ED EXAM, GENERAL - Physical Exam Exam: See Below (See dictation) Course - Vital Signs Last Recorded V/S: Last Vital Signs Temp 36.8 C 12/30/18 21:05 Pulse 78 12/30/18 21:05 Resp 18 12/30/18 21:05 BP 167/93 H 12/30/18 21:05 Pulse Ox 97 12/30/18 21:05 - Orders/Labs/Meds Orders: Active Orders 24 hr Category Date Time Status Cardiac Monitoring [RC] . DIRECTED Care 12/30/18 18:54 Active EKG Documentation Completion [RC] STAT Care 12/30/18 18:54 Active CULTURE URINE [RM] Stat Lab 12/30/18 19:25 Received Labs: Laboratory Tests 12/30/18 12/30/18 12/30/18 Range/Units 18:52 18:52 19:25 WBC 6.77 (4.0-11.0) K/uL RBC 4.33 (4.30-5.90) M/uL Hgb 13.8 (12.0-16.0) g/dL Hct 38.7 (36.0-46.0) % MCV 89.4 (80.0-98.0) fL MCH 31.9 (27.0-32.0) pg MCHC 35.7 (31.0-37.0) g/dL RDW Std Deviation 48.5 (28.0-62.0) fl RDW Coeff of Ej 15 (11.0-15.0) % Plt Count 134 L (150-400) K/uL MPV 9.00 (7.40-12.00) fL Neut % (Auto) 73.6 (48.0-80.0) % Lymph % (Auto) 20.4 (16.0-40.0) % [place] % (Auto) 5.8 (0.0-15.0) % Eos % (Auto) 0.1 (0.0-7.0) % Baso % (Auto) 0.1 (0.0-1.5) % Neut # (Auto) 5.0 (1.4-5.7) K/uL Lymph # (Auto) 1.4 (0.6-2.4) K/uL [place] # (Auto) 0.4 (0.0-0.8) K/uL Eos # (Auto) 0.0 (0.0-0.7) K/uL Baso # (Auto) 0.0 (0.0-0.1) K/uL Nucleated RBC % 0.0 /100WBC Nucleated RBCs # 0 K/uL Sodium 135 L (136-145) mmol/L Potassium 3.5 (3.5-5.1) mmol/L Chloride 99 (98-107) mmol/L Carbon Dioxide 24.1 (21.0-32.0) mmol/L BUN 15 (7.0-18.0) mg/dL Creatinine 0.8 (0.6-1.0) mg/dL Est Cr Clr Drug Dosing 61.36 mL/min Estimated GFR (MDRD) > 60.0 ml/min Glucose 196 H (74-106) mg/dL Calcium 8.3 L (8.5-10.1) mg/dL Total Bilirubin 1.0 (0.2-1.0) mg/dL AST 86 H (15-37) IU/L ALT 126 H (14-63) IU/L Alkaline Phosphatase 269 H (46-116) U/L Creatine Kinase 26 (26-308) U/L Troponin I < 0.050 (0.000-0.056) ng/mL Total Protein 7.2 (6.4-8.2) g/dL Albumin 3.5 (3.4-5.0) g/dL Globulin 3.7 (2.6-4.0) g/dL Albumin/Globulin Ratio 0.9 (0.9-1.6) Amylase 73 (25-115) U/L Lipase 104 (73-393) U/L Urine Color YELLOW Urine Appearance HAZY Urine pH 7.5 (5.0-8.0) Ur Specific [place] 1.015 (1.001-1.035) Urine Protein TRACE H (NEGATIVE) mg/dL Urine Glucose (UA) NEGATIVE (NEGATIVE) mg/dL Urine Ketones NEGATIVE (NEGATIVE) mg/dL Urine Occult Blood NEGATIVE (NEGATIVE) Urine Nitrite NEGATIVE (NEGATIVE) Urine Bilirubin NEGATIVE (NEGATIVE) Urine Urobilinogen 0.2 (<2.0) EU/dL Ur Leukocyte Esterase SMALL H (NEGATIVE) Urine RBC 1-2 (0-2/HPF) Urine WBC 3-5 (0-5/HPF) Ur Epithelial Cells FEW (NONE-FEW) Urine Bacteria FEW (NEGATIVE) Meds: Medications Discontinued Medications Generic Name Dose Route Start Last Admin Trade Name Freq PRN Reason Stop Dose Admin Sodium Chloride 1,000 mls @ 999 mls/hr 12/30/18 18:55 12/30/18 19:00 Normal Saline IV 12/30/18 19:55 999 mls/hr .Bolus ONE Administration Ondansetron HCl 4 mg 12/30/18 21:12 12/30/18 21:19 Zofran IVPUSH 12/30/18 21:13 4 mg ONETIME ONE Administration Departure - Departure Time of Disposition: 21:59 Disposition: Home, Self-Care 01 Condition: Good Clinical Impression: Metastatic cancer, Atypical chest pain - Discharge Information Forms: ED Department Discharge Additional Instructions: The following information is given to patients seen in the emergency department who are being discharged to home. This information is to outline your options for follow-up care. We provide all patients seen in our emergency department with a follow-up referral. The need for follow-up, as well as the timing and circumstances, are variable depending upon the specifics of your emergency department visit. If you don't have a primary care physician on staff, we will provide you with a referral. We always advise you to contact your personal physician following an emergency department visit to inform them of the circumstance of the visit and for follow-up with them and/or the need for any referrals to a consulting specialist. The emergency department will also refer you to a specialist when appropriate. This referral assures that you have the opportunity for followup care with a specialist. All of these measure are taken in an effort to provide you with optimal care, which includes your followup. Under all circumstances we always encourage you to contact your private physician who remains a resource for coordinating your care. When calling for followup care, please make the office aware that this follow-up is from your recent emergency room visit. If for any reason you are refused follow-up, please contact the [facility] emergency department at and asked to speak to the emergency department charge nurse. Follow-up primary medical doctor/oncology as discussed return as needed as discussed - My Orders Last 24 Hours: My Active Orders 12/30/18 18:54 Cardiac Monitoring [RC] . DIRECTED EKG Documentation Completion [RC] STAT 12/30/18 19:25 CULTURE URINE [RM] Stat - Assessment/Plan Last 24 Hours: My Active Orders 12/30/18 18:54 Cardiac Monitoring [RC] . DIRECTED EKG Documentation Completion [RC] STAT 12/30/18 19:25 CULTURE URINE [RM] Stat
[2018-12-30] MEDS ORDERED: Sodium Chloride 0.9% 1,000 ML IV ONE (18:55)
[2018-12-30 19:25] LABS: CHLORIDE,CL 99 mmol/L (98-107); SODIUM,NA 135 mmol/L (136-145)
--- NOTE | 2018-12-30 19:28 | CR ---
Indication: Chest pain Technique: Chest 1 view Comparison: 07/20/2018. Findings/Impression: Cardiovascular and mediastinum: Stable cardiomediastinal silhouette. Lungs and pleural space: Lungs are clear. No sign of infiltrate or mass. No sign of pleural effusion. No pneumothorax. Bones and soft tissues: A left chest Port-A-Cath again seen. Stable osseous structures. Dictated by Mich Rodriguez MD @ 12/30/2018 7:27:10 PM Dictated by: Mich Rodriguez MD @ 12/30/2018 19:27:24 (Electronically Signed)
[2018-12-30] MEDS ORDERED: Ondansetron 4 MG/2 ML SDV IVPUSH ONE (21:12)
[2018-12-30 22:27] VITALS: BP 160/89
== END 2018-12-30 22:20 | disposition home or self-care (01) ==
LOC: MW.ED 18:46
DX: R07.89 Other chest pain (principal); C18.9 Malignant neoplasm of colon, unspecified; I10 Essential (primary) hypertension; E11.9 Type 2 diabetes mellitus without complications; Z88.8 Allergy status to other drugs, medicaments and biological substances; Z88.5 Allergy status to narcotic agent; Z79.899 Other long term (current) drug therapy; Z79.4 Long term (current) use of insulin
CPT/HCPCS: 36415; 71045; 80053; 81001; 82150; 82550; 83690; 84484; 85025; 87086; 93005; 96361; 96374; 99285; J1642; J2405; J7040

== ENCOUNTER 2019-01-22 21:51 | Emergency (ER) | payer OTHER ==
[2019-01-22] MEDS ORDERED: Ondansetron 4 MG/2 ML SDV IVPUSH ONE (21:54)
[2019-01-22] MEDS ORDERED: Sodium Chloride 0.9% 1,000 ML IV ONE (21:54)
--- NOTE | 2019-01-22 22:32 | EDM.PDOC ---
ED HPI GENERAL MEDICAL PROBLEM - General Chief Complaint: Abdominal Pain Stated Complaint: PT HAS STOMACH PAIN Time Seen by Provider: 01/22/19 21:53 - History of Present Illness INITIAL COMMENTS - FREE TEXT/NARRATIVE: HISTORY AND PHYSICAL: History of present illness: Patient 58-year-old white female history of metastatic colon cancer presents with concern of vomiting diarrhea and shortness of breath she states she finished a recent round of chemotherapy last week. She denies chest pain shortness of breath is somewhat chronic intermittent problem. She has some mild abdominal discomfort this is nonlocalized she denies fever chills or other complaints Review of systems: As per history of present illness and below otherwise all systems reviewed and negative. Past medical history: As per history of present illness and as reviewed below otherwise noncontributory. Surgical history: As per history of present illness and as reviewed below otherwise noncontributory. Social history: No reported history of drug or alcohol abuse. Family history: As per history of present illness and as reviewed below otherwise noncontributory. Physical exam: HEENT: Atraumatic, normocephalic, pupils reactive, negative for conjunctival pallor or scleral icterus, mucous membranes dry throat clear, neck supple, nontender, trachea midline. Lungs: Clear to auscultation, breath sounds equal bilaterally, chest nontender. Heart: S1S2, regular, negative for clicks, rubs, or JVD. Abdomen: Soft, nondistended, nonlocalized. Negative for masses or hepatosplenomegaly. Negative for costovertebral tenderness. Pelvis: Stable nontender. Genitourinary: Deferred. Rectal: Deferred. Extremities: Atraumatic, negative for cords or calf pain. Neurovascular unremarkable. Neuro: Awake, alert, oriented. Cranial nerves II through XII unremarkable. Cerebellum unremarkable. Motor and sensory unremarkable throughout. Exam nonfocal. Diagnostics: CBC CMP troponin PT/INR chest x-ray EKG CT abdomen and pelvis UA blood culture 2 Therapeutics: Saline 1 L bolus Zofran 4 mg IV Impression: #1 history of metastatic colon cancer #2 gastroenteritis with dehydration #3 dyspnea Definitive disposition and diagnosis as appropriate pending reevaluation and review of above. Middle Abdomen Pain Score (Numeric/FACES): 7 - Related Data Allergies Allergy/AdvReac Type Severity Reaction Status Date / Time hydrocodone Allergy Unknown Hives Verified 04/21/19 21:56 ibuprofen Allergy Unknown Hives Verified 01/22/19 21:56 morphine Allergy Unknown Seizure Verified 01/22/19 21:56 nitroglycerin Allergy Unknown Difficulty Verified 01/22/19 21:56 Breathing caffeine Allergy Vomiting Verified 01/22/19 21:56 diphenhydramine HCl Allergy Excitabilit Verified 01/22/19 21:56 [From Benadryl] y Home Meds: Home Meds atorvaSTATin Calcium [Atorvastatin Calcium] 20 mg PO BEDTIME 05/09/14 [History] dilTIAZem HCl [Diltiazem 24Hr ER (LA)] 360 mg PO BEDTIME 05/09/14 [History] metFORMIN [Glucophage] 1,000 mg PO BIDMEALS 05/09/14 [History] HYDROmorphone [Dilaudid] 1 - 2 tab PO Q4H PRN 10/27/15 [History] LORazepam [Ativan] 1 mg PO Q6H PRN 12/26/15 [History] Ondansetron [Zofran ODT] 4 mg PO Q4H PRN #14 tab.dis 05/07/17 [Rx] Insulin Glarg,Human.Rec.Analog [LantUS Solostar] 32 units SUBCUT BID 08/06/17 [ History] Pantoprazole [ProTONIX] 40 mg PO BIDAC 08/06/17 [History] Estrogens, Conjugated [Premarin] 2 gram VAG Q48H 02/04/18 [History] Insulin Aspart [NovoLOG] 16 unit SUBCUT TID 02/04/18 [History] Diphenhyd/Lidocaine/Nystatin [Magic Mouthwash] 30 ml PO Q6H PRN MDD Mouth/ Throat pain 07/20/18 [History] Loperamide [Imodium] 2 mg PO Q6H PRN MDD loose stool 07/20/18 [History] Loratadine 10 mg PO ASDIRECTED 01/22/19 [History] Past Medical History HEENT History: Reports: Impaired Vision Other HEENT History: wears glasses Cardiovascular History: Reports: High Cholesterol, Hypertension Respiratory History: Reports: None Gastrointestinal History: Reports: GERD Other Gastrointestinal History: hernia, colon CA Genitourinary History: Reports: UTI, Recurrent 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 ACCOUNT MANAGER History: Reports: , Other (See Below) Other CUSTOMER ACCOUNT MANAGER History: x2 Musculoskeletal History: Reports: None Neurological History: Reports: None Psychiatric History: Reports: Anxiety, Depression Endocrine/Metabolic History: Reports: Diabetes, Type II Hematologic History: Reports: None Immunologic History: Reports: None Oncologic (Cancer) History: Reports: Colon, Liver, Metastatic Dermatologic History: Reports: None - Infectious Disease History Infectious Disease History: Reports: Measles - Past Surgical History HEENT Surgical History: Reports: Adenoidectomy, Tonsillectomy GI Surgical History: Reports: Cholecystectomy, Colon, Hernia Repair/Other Other GI Surgeries/Procedures: colectomy x2 Female Surgical History: Reports: Section, Hysterectomy, Salpingo- Oophorectomy Other Female Surgeries/Procedures: X2 Endocrine Surgical History: Reports: None Musculoskeletal Surgical History: Reports: None, Other (See Below) Other Musculoskeletal Surgeries/Procedures:: rigth knee pain Oncologic Surgical History: Reports: Other (See Below) Other Oncologic Surgeries/Procedures: presently on chemo treatment last done on February 02, 2018. Dermatological Surgical History: Reports: None Social & Family History - Family History Family Medical History: Noncontributory GI: Reports: None - Tobacco Use Smoking Status *Q: Never Smoker Second Hand Smoke Exposure: No - Caffeine Use Caffeine Use: Reports: None - Recreational Drug Use Recreational Drug Use: No ED ROS GENERAL - Review of Systems Review Of Systems: ROS reveals no pertinent complaints other than HPI. ED EXAM, GENERAL - Physical Exam Exam: See Below (See dictation) Course - Vital Signs Last Recorded V/S: Last Vital Signs Temp 36.5 C 01/22/19 21:56 Pulse 77 01/22/19 22:31 Resp 20 01/22/19 22:31 BP 159/103 H 01/22/19 22:31 Pulse Ox 98 01/22/19 22:31 - Orders/Labs/Meds Orders: Active Orders 24 hr Category Date Time Status EKG Documentation Completion [RC] STAT Care 01/22/19 21:53 Active CULTURE BLOOD [BC] Stat Lab 01/22/19 22:30 Received CULTURE BLOOD [BC] Stat Lab 01/22/19 22:40 Received UA RFX HOLLAND AND CULT IF INDIC [URIN] Stat Lab 01/22/19 21:54 Ordered Blood Culture x2 Reflex Set [OM.PC] Stat Oth 01/22/19 21:54 Ordered Labs: Laboratory Tests 01/22/19 01/22/1901/22/19 Range/Units 22:30 22:30 22:30 WBC 5.72 (4.0-11.0) K/uL RBC 4.49 (4.30-5.90) M/uL Hgb 14.2 (12.0-16.0) g/dL Hct 39.7 (36.0-46.0) % MCV 88.4 (80.0-98.0) fL MCH 31.6 (27.0-32.0) pg MCHC 35.8 (31.0-37.0) g/dL RDW Std Deviation 47.1 (28.0-62.0) fl RDW Coeff of Ej 15 (11.0-15.0) % Plt Count 108 L (150-400) K/uL MPV 9.50 (7.40-12.00) fL Neut % (Auto) 73.1 (48.0-80.0) % Lymph % (Auto) 22.9 (16.0-40.0) % [place] % (Auto) 2.8 (0.0-15.0) % Eos % (Auto) 1.0 (0.0-7.0) % Baso % (Auto) 0.2 (0.0-1.5) % Neut # (Auto) 4.2 (1.4-5.7) K/uL Lymph # (Auto) 1.3 (0.6-2.4) K/uL [place] # (Auto) 0.2 (0.0-0.8) K/uL Eos # (Auto) 0.1 (0.0-0.7) K/uL Baso # (Auto) 0.0 (0.0-0.1) K/uL Nucleated RBC % 0.0 /100WBC Nucleated RBCs # 0 K/uL INR 0.94 Lactate (0.20-2.00) mmol/L Sodium 133 L (136-145) mmol/L Potassium 3.2 L (3.5-5.1) mmol/L Chloride 98 (98-107) mmol/L Carbon Dioxide 24.1 (21.0-32.0) mmol/L BUN 15 (7.0-18.0) mg/dL Creatinine 0.8 (0.6-1.0) mg/dL Est Cr Clr Drug Dosing TNP Estimated GFR (MDRD) > 60.0 ml/min Glucose 229 H (74-106) mg/dL Calcium 8.0 L (8.5-10.1) mg/dL Total Bilirubin 1.3 H (0.2-1.0) mg/dL AST 57 H (15-37) IU/L ALT 86 H (14-63) IU/L Alkaline Phosphatase 234 H (46-116) U/L Troponin I < 0.050 (0.000-0.056) ng/mL B-Natriuretic Peptide (<100) PG/ML Total Protein 6.5 (6.4-8.2) g/dL Albumin 3.2 L (3.4-5.0) g/dL Globulin 3.3 (2.6-4.0) g/dL Albumin/Globulin Ratio 1.0 (0.9-1.6) 01/22/19 01/22/19 Range/Units 22:30 22:30 WBC (4.0-11.0) K/uL RBC (4.30-5.90) M/uL Hgb (12.0-16.0) g/dL Hct (36.0-46.0) % MCV (80.0-98.0) fL MCH (27.0-32.0) pg MCHC (31.0-37.0) g/dL RDW Std Deviation (28.0-62.0) fl RDW Coeff of Ej (11.0-15.0) % Plt Count (150-400) K/uL MPV (7.40-12.00) fL Neut % (Auto) (48.0-80.0) % Lymph % (Auto) (16.0-40.0) % [place] % (Auto) (0.0-15.0) % Eos % (Auto) (0.0-7.0) % Baso % (Auto) (0.0-1.5) % Neut # (Auto) (1.4-5.7) K/uL Lymph # (Auto) (0.6-2.4) K/uL [place] # (Auto) (0.0-0.8) K/uL Eos # (Auto) (0.0-0.7) K/uL Baso # (Auto) (0.0-0.1) K/uL Nucleated RBC % /100WBC Nucleated RBCs # K/uL INR Lactate 1.6 (0.20-2.00) mmol/L Sodium (136-145) mmol/L Potassium (3.5-5.1) mmol/L Chloride (98-107) mmol/L Carbon Dioxide (21.0-32.0) mmol/L BUN (7.0-18.0) mg/dL Creatinine (0.6-1.0) mg/dL Est Cr Clr Drug Dosing Estimated GFR (MDRD) ml/min Glucose (74-106) mg/dL Calcium (8.5-10.1) mg/dL Total Bilirubin (0.2-1.0) mg/dL AST (15-37) IU/L ALT (14-63) IU/L Alkaline Phosphatase (46-116) U/L Troponin I (0.000-0.056) ng/mL B-Natriuretic Peptide 7 (<100) PG/ML Total Protein (6.4-8.2) g/dL Albumin (3.4-5.0) g/dL Globulin (2.6-4.0) g/dL Albumin/Globulin Ratio (0.9-1.6) Meds: Medications Discontinued Medications Generic Name Dose Route Start Last Admin Trade Name Freq PRN Reason Stop Dose Admin Hydromorphone HCl 1 mg 01/22/19 23:00 01/22/19 23:07 Dilaudid IVPUSH 01/22/19 23:01 1 mg ONETIME ONE Administration Sodium Chloride 1,000 mls @ 999 mls/hr 01/22/19 21:54 01/22/19 22:29 Normal Saline IV 01/22/19 22:54 999 mls/hr STAT ONE Administration Ondansetron HCl 4 mg 01/22/19 21:54 01/22/19 22:29 Zofran IVPUSH 01/22/19 21:55 4 mg ONETIME ONE Administration Departure - Departure Time of Disposition: 23:35 Disposition: Home, Self-Care 01 Condition: Good Clinical Impression: Gastroenteritis, History of malignant neoplasm metastatic to liver - Discharge Information Forms: ED Department Discharge Additional Instructions: The following information is given to patients seen in the emergency department who are being discharged to home. This information is to outline your options for follow-up care. We provide all patients seen in our emergency department with a follow-up referral. The need for follow-up, as well as the timing and circumstances, are variable depending upon the specifics of your emergency department visit. If you don't have a primary care physician on staff, we will provide you with a referral. We always advise you to contact your personal physician following an emergency department visit to inform them of the circumstance of the visit and for follow-up with them and/or the need for any referrals to a consulting specialist. The emergency department will also refer you to a specialist when appropriate. This referral assures that you have the opportunity for followup care with a specialist. All of these measure are taken in an effort to provide you with optimal care, which includes your followup. Under all circumstances we always encourage you to contact your private physician who remains a resource for coordinating your care. When calling for followup care, please make the office aware that this follow-up is from your recent emergency room visit. If for any reason you are refused follow-up, please contact the [facility] emergency department at and asked to speak to the emergency department charge nurse. Follow-up primary medical doctor/oncology as discussed return as needed as discussed push fluids clear liquids avoid dairy products return as needed as discussed - My Orders Last 24 Hours: My Active Orders 01/22/19 21:53 EKG Documentation Completion [RC] STAT 01/22/19 21:54 UA RFX [place] AND CULT IF INDIC [URIN] Stat Blood Culture x2 Reflex Set [OM.PC] Stat 01/22/19 22:30 CULTURE BLOOD [BC] Stat 01/22/19 22:40 CULTURE BLOOD [BC] Stat - Assessment/Plan Last 24 Hours: My Active Orders 01/22/19 21:53 EKG Documentation Completion [RC] STAT 01/22/19 21:54 UA RFX [place] AND CULT IF INDIC [URIN] Stat Blood Culture x2 Reflex Set [OM.PC] Stat 01/22/19 22:30 CULTURE BLOOD [BC] Stat 01/22/19 22:40 CULTURE BLOOD [BC] Stat
--- NOTE | 2019-01-22 22:56 | CT ---
INDICATION: Abdominal pain TECHNIQUE: CT Abdomen and pelvis without i.v. contrast. Coronal and sagittal reformats were obtained. COMPARISON: None FINDINGS: Lower chest: Unremarkable. Liver: Innumerable punctate calcified granulomata present in the liver, not significantly changed from prior exam. There is a mildly hypodense subcapsular lesion in the left lateral segment of the liver measuring 1.6 cm and a 0.8 cm hypodense lesion is seen in the right posterior segment of the liver on image 29. Two smaller hypodense lesion is seen in the liver dome on image 19 measuring up to 1 cm. Spleen: Numerous calcified granulomata are present within the spleen without interval change. Pancreas: Unremarkable. Gallbladder: Previous cholecystectomy noted without significant intra- or extrahepatic biliary ductal dilatation seen. Kidney: Unremarkable. No kidney or ureteral stones or obstruction seen. Adrenal: Unremarkable. Bowel: Moderate submucosal fat deposition is present within the colon. An anastomotic staple line is seen near the junction of the descending sigmoid colon where there is also mild tethering to the adjacent peritoneum. The appendix is normal in appearance and size. Vascular: Unremarkable. Lymph: Unremarkable. Peritoneum: Unremarkable. No pneumoperitoneum is seen. No significant ascites is noted. Pelvis: Unremarkable. Soft tissue: Unremarkable. Bone: Unremarkable for age. IMPRESSION: 1. There are several ill-defined hypodense lesions present within the liver, not significantly changed from prior exam. Further characterization with liver MRI is recommended especially if the patient has a history of primary malignancy or chronic liver disease. Dictated by Jarret Quinteros MD @ 01/22/2019 10:55:45 PM Please note that all CT scans at this facility use dose modulation, iterative reconstruction, and/or weight-based dosing when appropriate to reduce radiation dose to as low as reasonably achievable. Dictated by: Jarret Quinteros MD @ 01/22/2019 22:55:49 (Electronically Signed)
[2019-01-22] MEDS ORDERED: HYDROmorphone 2 MG/ML Syringe IVPUSH ONE (23:00)
[2019-01-22 23:21] LABS: CHLORIDE,CL 98 mmol/L (98-107); SODIUM,NA 133 mmol/L (136-145)
--- NOTE | 2019-01-22 23:32 | CR ---
INDICATION: Chest pain, shortness of breath TECHNIQUE: Chest radiograph 1 view COMPARISON: 12/30/2018 FINDINGS: Moderate degradation of image quality noted due to body habitus. Mediastinum: There is a stable density in the right paratracheal region at the thoracic inlet causing mild leftward deviation of the trachea. The heart silhouette is normal in size and morphology. Left Port-A-Cath is noted without interval change. Lung: Both lungs are unremarkable in appearance. No sign of pleural effusion seen. No pneumothorax is identified. Musculoskeletal: Unremarkable for age. IMPRESSION: 1. There is a stable density in the right paratracheal region at the thoracic inlet causing mild leftward deviation of the trachea. This may represent a thyroid goiter and correlation with physical exam is recommended. Dictated by Jarret Quinteros MD @ 01/22/2019 11:30:06 PM Dictated by: Jarret Quinteros MD @ 01/22/2019 23:30:12 (Electronically Signed)
[2019-01-23 00:39] VITALS: BP 160/100
== END 2019-01-22 23:45 | disposition home or self-care (01) ==
LOC: MW.ED 21:51
DX: K52.9 Noninfective gastroenteritis and colitis, unspecified (principal); R06.00 Dyspnea, unspecified; I10 Essential (primary) hypertension; E78.00 Pure hypercholesterolemia, unspecified; E11.9 Type 2 diabetes mellitus without complications; K21.9 Gastro-esophageal reflux disease without esophagitis; Z85.038 Personal history of other malignant neoplasm of large intestine; Z79.4 Long term (current) use of insulin; Z79.899 Other long term (current) drug therapy; Z85.05 Personal history of malignant neoplasm of liver
CPT/HCPCS: 36415; 71045; 74176; 80053; 81001; 83605; 83880; 84484; 85025; 85610; 87040; 87086; 96361; 96374; 96375; 99285; J1170; J2405; J7040; 93005; 99284

== ENCOUNTER 2019-01-23 13:34 | Inpatient (IN) | payer OTHER ==
--- NOTE | 2019-01-23 13:51 | EDM.PDOC ---
ED HPI GENERAL MEDICAL PROBLEM - General Stated Complaint: ABDOMINAL PAIN Time Seen by Provider: 01/23/19 13:50 Source of Information: Reports: Patient History Limitations: Reports: No Limitations - History of Present Illness INITIAL COMMENTS - FREE TEXT/NARRATIVE: HISTORY AND PHYSICAL: History of present illness: Patient is a 58-year-old female who presents to the emergency room with complaints of abdominal pain, nausea, vomiting and diarrhea 2 days. Patient does have a history of metastatic colon cancer and currently receives chemotherapy, last treatment being on 01/20/19. She reports that she has been taking her Zofran and Dilaudid at home with minimal relief. She was evaluated in our emergency room last evening and had a full workup which was normal. She was discharged to home with supportive care measures. Today she followed up in the clinic who sent her to oncology for IV fluids. She states she was referred back to the emergency room for reevaluation as she continues to feel unwell. Patient is frustrated and states that she wants to "get to the bottom of this". Patient denies any fever, chills, headache, change in vision, syncope or near syncope. Denies any chest pain, back pain, shortness of breath or cough. Denies any constipation or dysuria. Has not noted any blood in urine or stool. Patient has a past medical history of hypertension, high cholesterol, metastatic colon cancer, type 2 diabetes, anxiety and depression. Review of systems: As per history of present illness and below otherwise all systems reviewed and negative. Past medical history: As per history of present illness and as reviewed below otherwise noncontributory. Surgical history: As per history of present illness and as reviewed below otherwise noncontributory. Social history: See social history for further information Family history: As per history of present illness and as reviewed below otherwise noncontributory. Physical exam: General: Well-developed and well-nourished 58-year-old female. Alert and oriented. Nontoxic appearing and in no acute distress. HEENT: Atraumatic, normocephalic, pupils equal and reactive bilaterally, negative for conjunctival pallor or scleral icterus, mucous membranes moist, TMs normal bilaterally, throat clear, neck supple, nontender, trachea midline. No drooling or trismus noted. No meningeal signs. No hot potato voice noted. Lungs: Clear to auscultation, breath sounds equal bilaterally, chest nontender. Port noted to left upper chest wall. Heart: S1S2, regular rate and rhythm without overt murmur Abdomen: Soft, nondistended, generalized tenderness in all 4 quadrants ( nonspecific). Negative for masses or hepatosplenomegaly. Negative for costovertebral tenderness. Pelvis: Stable nontender. Genitourinary: Deferred. Rectal: Deferred. Skin: Intact, warm, dry. No lesions or rashes noted. Extremities: Atraumatic, moves all extremities per self with difficulty or deficits, negative for cords or calf pain. Neurovascular unremarkable. Neuro: Awake, alert, oriented. Cranial nerves II through XII unremarkable. Cerebellum unremarkable. Motor and sensory unremarkable throughout. Exam nonfocal. Notes: 01/22/2019: CBC, CMP, troponin, PT/INR, chest x-ray, EKG, CT abdomen and pelvis, UA, blood cultures 2. These results were relatively unremarkable. It did appear that she has WBCs in her urine from last night's results, antibiotics were given at that time she was given a follow-up with her primary care provider and the culture was pending. I will give her some Rocephin today. Blood work is unremarkable. Patient has not been able to give a urine or stool sample while here. Patient is requesting admission she states she does not feel well. Patient's oncologist had called the emergency room stating that they had evaluated her and also would like her to the possibly admitted for her dehydration. Dr Walsh was consulted on this case. He is agreeable to keeping this patient for observation. He has come down and evaluated the patient himself. Diagnostics: CBC, CMP, UA, Therapeutics: IV fluids Impression: Dehydration Gastroenteritis UTI Metastatic colon cancer Plan: Observation admission to [facility] Definitive disposition and diagnosis as appropriate pending reevaluation and review of above. Abdominal Pain Pain Score (Numeric/FACES): 7 - Related Data Allergies Allergy/AdvReac Type Severity Reaction Status Date / Time hydrocodone Allergy Unknown Hives Verified 01/23/19 13:45 ibuprofen Allergy Unknown Hives Verified 01/23/19 13:45 morphine Allergy Unknown Seizure Verified 01/23/19 13:45 nitroglycerin Allergy Unknown Difficulty Verified 01/23/19 13:45 Breathing caffeine Allergy Vomiting Verified 01/23/19 13:45 diphenhydramine HCl Allergy Excitabilit Verified 01/23/19 13:45 [From Benadryl] y Home Meds: Home Meds atorvaSTATin Calcium [Atorvastatin Calcium] 20 mg PO BEDTIME 05/09/14 [History] dilTIAZem HCl [Diltiazem 24Hr ER (LA)] 360 mg PO BEDTIME 05/09/14 [History] metFORMIN [Glucophage] 1,000 mg PO BIDMEALS 05/09/14 [History] HYDROmorphone [Dilaudid] 1 - 2 tab PO Q4H PRN 10/27/15 [History] LORazepam [Ativan] 1 mg PO Q6H PRN 12/26/15 [History] Ondansetron [Zofran ODT] 4 mg PO Q4H PRN #14 tab.dis 05/07/17 [Rx] Insulin Glarg,Human.Rec.Analog [LantUS Solostar] 32 units SUBCUT BID 08/06/17 [ History] Pantoprazole [ProTONIX] 40 mg PO BIDAC 08/06/17 [History] Estrogens, Conjugated [Premarin] 2 gram VAG Q48H 02/04/18 [History] Insulin Aspart [NovoLOG] 16 unit SUBCUT TID 02/04/18 [History] Diphenhyd/Lidocaine/Nystatin [Magic Mouthwash] 30 ml PO Q6H PRN MDD Mouth/ Throat pain 07/20/18 [History] Loperamide [Imodium] 2 mg PO Q6H PRN MDD loose stool 07/20/18 [History] Loratadine 10 mg PO ASDIRECTED 01/22/19 [History] Past Medical History HEENT History: Reports: Impaired Vision Other HEENT History: wears glasses Cardiovascular History: Reports: High Cholesterol, Hypertension Respiratory History: Reports: None Gastrointestinal History: Reports: GERD Other Gastrointestinal History: hernia, colon CA Genitourinary History: Reports: UTI, Recurrent TRADE SPECIALIST History: Reports: , Other (See Below) Other TRADE SPECIALIST History: x2 Musculoskeletal History: Reports: None Neurological History: Reports: None Psychiatric History: Reports: Anxiety, Depression Endocrine/Metabolic History: Reports: Diabetes, Type II Hematologic History: Reports: None Immunologic History: Reports: None Oncologic (Cancer) History: Reports: Colon, Liver, Metastatic Dermatologic History: Reports: None - Infectious Disease History Infectious Disease History: Reports: C-Difficile - Past Surgical History HEENT Surgical History: Reports: Adenoidectomy, Tonsillectomy GI Surgical History: Reports: Cholecystectomy, Colon, Hernia Repair/Other Other GI Surgeries/Procedures: colectomy x2 Female Surgical History: Reports: Section, Hysterectomy, Salpingo- Oophorectomy Other Female Surgeries/Procedures: X2 Endocrine Surgical History: Reports: None Musculoskeletal Surgical History: Reports: None, Other (See Below) Other Musculoskeletal Surgeries/Procedures:: rigth knee pain Oncologic Surgical History: Reports: Other (See Below) Other Oncologic Surgeries/Procedures: presently on chemo treatment last done on February 02, 2018. Dermatological Surgical History: Reports: None Social & Family History - Family History Family Medical History: Noncontributory GI: Reports: None - Tobacco Use Smoking Status *Q: Never Smoker - Caffeine Use Caffeine Use: Reports: None - Recreational Drug Use Recreational Drug Use: No ED ROS GENERAL - Review of Systems Review Of Systems: ROS reveals no pertinent complaints other than HPI. ED EXAM, GENERAL - Physical Exam Exam: See Below (See dictation) Course - Vital Signs Last Recorded V/S: Last Vital Signs Temp 95.9 F 01/23/19 14:48 Pulse 93 01/23/19 14:48 Resp 18 01/23/19 14:48 BP 178/95 H 01/23/19 14:48 Pulse Ox 94 L 01/23/19 14:48 - Orders/Labs/Meds Orders: Active Orders 24 hr Category Date Time Status Admission Status [Patient Status] [ADT] Stat ADT 01/23/19 14:56 Active CDIFF TOX A+B [OP] Stat Lab 01/23/19 14:00 Ordered CULTURE STOOL + CAMPY+SHIGATOX [RM] Stat Lab 01/23/19 14:00 Ordered OVA & PARASITES BY IMMUNOASSAY [MREF] Stat Lab 01/23/19 14:00 Ordered UA RFX HOLLAND AND CULT IF INDIC [URIN] Stat Lab 01/23/19 14:00 Ordered cefTRIAXone [Rocephin in Dextrose,Iso-Osm 1 GM/50 ML] 1 Med 01/23/19 14:52 Active gm Premix Bag 1 bag IV ONETIME Isolation [COMM] Stat Oth 01/23/19 14:00 Ordered Medication Orders Ceftriaxone Sodium/Dextrose 1 (gm/ Premix) 50 mls @ 100 mls/hr IV ONETIME ONE Stop: 01/23/19 15:21 Last Admin: 01/23/19 14:56 Dose: 100 mls/hr Labs: Laboratory Tests 01/23/19 01/23/19 Range/Units 13:51 13:51 WBC 4.94 (4.0-11.0) K/uL RBC 4.46 (4.30-5.90) M/uL Hgb 13.9 (12.0-16.0) g/dL Hct 39.6 (36.0-46.0) % MCV 88.8 (80.0-98.0) fL MCH 31.2 (27.0-32.0) pg MCHC 35.1 (31.0-37.0) g/dL RDW Std Deviation 47.4 (28.0-62.0) fl RDW Coeff of Ej 15 (11.0-15.0) % Plt Count 103 L (150-400) K/uL MPV 9.30 (7.40-12.00) fL Neut % (Auto) 59.7 (48.0-80.0) % Lymph % (Auto) 33.8 (16.0-40.0) % Kerr % (Auto) 4.3 (0.0-15.0) % Eos % (Auto) 2.0 (0.0-7.0) % Baso % (Auto) 0.2 (0.0-1.5) % Neut # (Auto) 3.0 (1.4-5.7) K/uL Lymph # (Auto) 1.7 (0.6-2.4) K/uL Kerr # (Auto) 0.2 (0.0-0.8) K/uL Eos # (Auto) 0.1 (0.0-0.7) K/uL Baso # (Auto) 0.0 (0.0-0.1) K/uL Nucleated RBC % 0.0 /100WBC Nucleated RBCs # 0 K/uL Sodium 133 L (136-145) mmol/L Potassium 3.3 L (3.5-5.1) mmol/L Chloride 98 (98-107) mmol/L Carbon Dioxide 26.7 (21.0-32.0) mmol/L BUN 13 (7.0-18.0) mg/dL Creatinine 0.8 (0.6-1.0) mg/dL Est Cr Clr Drug Dosing 64.18 mL/min Estimated GFR (MDRD) > 60.0 ml/min Glucose 214 H (74-106) mg/dL Calcium 8.4 L (8.5-10.1) mg/dL Total Bilirubin 1.4 H (0.2-1.0) mg/dL AST 53 H (15-37) IU/L ALT 80 H (14-63) IU/L Alkaline Phosphatase 241 H (46-116) U/L Total Protein 6.8 (6.4-8.2) g/dL Albumin 3.4 (3.4-5.0) g/dL Globulin 3.4 (2.6-4.0) g/dL Albumin/Globulin Ratio 1.0 (0.9-1.6) Meds: Medications Generic Name Dose Route Start Last Admin Trade Name Freq PRN Reason Stop Dose Admin Ceftriaxone Sodium/Dextrose 1 50 mls @ 100 mls/hr 01/23/19 14:52 01/23/19 14: 56 gm/ Premix IV 01/23/19 15:21 100 mls/hr ONETIME ONE Administration Discontinued Medications Generic Name Dose Route Start Last Admin Trade Name Freq PRN Reason Stop Dose Admin Sodium Chloride 1,000 mls @ 999 mls/hr 01/23/19 14:00 01/23/19 14:09 Normal Saline IV 01/23/19 15:00 999 mls/hr STAT ONE Administration Departure - Departure Time of Disposition: 15:08 Disposition: Refer to Observation Clinical Impression: Dehydration, Metastatic colon cancer in female, UTI, Urinary tract infectious disease, Gastroenteritis - Discharge Information Referrals: PCP,None [Primary Care Provider] - - My Orders Last 24 Hours: My Active Orders 01/23/19 14:00 CDIFF TOX A+B [OP] Stat CULTURE STOOL + CAMPY+SHIGATOX [RM] Stat OVA & PARASITES BY IMMUNOASSAY [MREF] Stat UA RFX HOLLAND AND CULT IF INDIC [URIN] Stat Isolation [COMM] Stat 01/23/19 14:52 cefTRIAXone [Rocephin in Dextrose,Iso-Osm 1 GM/50 ML] 1 gm Premix Bag 1 bag IV ONETIME 01/23/19 14:56 Admission Status [Patient Status] [ADT] Stat - Assessment/Plan Last 24 Hours: My Active Orders 01/23/19 14:00 CDIFF TOX A+B [OP] Stat CULTURE STOOL + CAMPY+SHIGATOX [RM] Stat OVA & PARASITES BY IMMUNOASSAY [MREF] Stat UA RFX HOLLAND AND CULT IF INDIC [URIN] Stat Isolation [COMM] Stat 01/23/19 14:52 cefTRIAXone [Rocephin in Dextrose,Iso-Osm 1 GM/50 ML] 1 gm Premix Bag 1 bag IV ONETIME 01/23/19 14:56 Admission Status [Patient Status] [ADT] Stat
[2019-01-23] MEDS ORDERED: Sodium Chloride 0.9% 1,000 ML IV ONE (14:00)
[2019-01-23 14:27] LABS: CHLORIDE,CL 98 mmol/L (98-107); SODIUM,NA 133 mmol/L (136-145)
[2019-01-23] MEDS ORDERED: cefTRIAXone 1 GM in Premix Bag 1 BAG IV ONE (14:52)
--- NOTE | 2019-01-23 15:12 | PCM.HP ---
H&P History of Present Illness - General Date of Service: 01/23/19 Admit Problem/Dx: Admission Diagnosis/Problem Admission Diagnosis/Problem Dehydration Source of Information: Patient, Old Records History Limitations: Reports: No Limitations - History of Present Illness Initial Comments - Free Text/Narative: The patient is a 58-year-old lady who has presented to the emergency room with 4 day history of acute on chronic abdominal pain. The patient is also had severe nausea, vomiting and diarrhea. The patient also has metastatic colon cancer and she has been started recently on chemotherapy for liver metastases. The patient says that she feels very dehydrated. The patient also had presented to her oncologist, Dr. Heart, and it was suggested that the patient be admitted with her symptoms controlled and aggressively hydrated. The patient also has a history of C. difficile. She has denied any fever or chills. No shortness of breath. Onset of Symptoms: Reports: Gradual Duration of Symptoms: Reports: Day(s): Location: Reports: Abdomen Quality: Reports: Ache, Same as Previous Episode, Stabbing, Throbbing Severity: Moderate Improves with: Reports: Medication, Rest Worsens with: Reports: Eating, Movement Context: Reports: Other (Metastatic colon cancer) Associated Symptoms: Reports: Loss of Appetite, Nausea/Vomiting, Other ( Dehydration) Abdominal Pain Pain Score (Numeric/FACES): 7 - Related Data Allergies/Adverse Reactions: Allergies Allergy/AdvReac Type Severity Reaction Status Date / Time hydrocodone Allergy Unknown Hives Verified 01/23/19 13:45 ibuprofen Allergy Unknown Hives Verified 01/23/19 13:45 morphine Allergy Unknown Seizure Verified 01/23/19 13:45 nitroglycerin Allergy Unknown Difficulty Verified 01/23/19 13:45 Breathing caffeine Allergy Vomiting Verified 01/23/19 13:45 diphenhydramine HCl Allergy Excitabilit Verified 01/23/19 13:45 [From Benadryl] y Home Medications: Home Meds atorvaSTATin Calcium [Atorvastatin Calcium] 20 mg PO BEDTIME 05/09/14 [History] dilTIAZem HCl [Diltiazem 24Hr ER ([place])] 360 mg PO BEDTIME 05/09/14 [History] metFORMIN [Glucophage] 1,000 mg PO BIDMEALS 05/09/14 [History] HYDROmorphone [Dilaudid] 1 - 2 tab PO Q4H PRN 10/27/15 [History] LORazepam [Ativan] 1 mg PO Q6H PRN 12/26/15 [History] Ondansetron [Zofran ODT] 4 mg PO Q4H PRN #14 tab.dis 05/07/17 [Rx] Insulin Glarg,Human.Rec.Analog [LantUS Solostar] 32 units SUBCUT BID 08/06/17 [ History] Pantoprazole [ProTONIX] 40 mg PO BIDAC 08/06/17 [History] Estrogens, Conjugated [Premarin] 2 gram VAG Q48H 02/04/18 [History] Insulin Aspart [NovoLOG] 16 unit SUBCUT TID 02/04/18 [History] Diphenhyd/Lidocaine/Nystatin [Magic Mouthwash] 30 ml PO Q6H PRN MDD Mouth/ Throat pain 07/20/18 [History] Loperamide [Imodium] 2 mg PO Q6H PRN MDD loose stool 07/20/18 [History] Loratadine 10 mg PO ASDIRECTED 01/22/19 [History] Past Medical History HEENT History: Reports: Impaired Vision Other HEENT History: wears glasses Cardiovascular History: Reports: High Cholesterol, Hypertension Respiratory History: Reports: None Gastrointestinal History: Reports: GERD Other Gastrointestinal History: hernia, colon CA Genitourinary History: Reports: UTI, Recurrent 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: , Other (See Below) Other OB/BYN History: x2 Musculoskeletal History: Reports: None Neurological History: Reports: None Psychiatric History: Reports: Anxiety, Depression Endocrine/Metabolic History: Reports: Diabetes, Type II Hematologic History: Reports: None Immunologic History: Reports: None Oncologic (Cancer) History: Reports: Colon, Liver, Metastatic Dermatologic History: Reports: None - Infectious Disease History Infectious Disease History: Reports: C-Difficile - Past Surgical History HEENT Surgical History: Reports: Adenoidectomy, Tonsillectomy GI Surgical History: Reports: Cholecystectomy, Colon, Hernia Repair/Other Other GI Surgeries/Procedures: colectomy x2 Female Surgical History: Reports: Section, Hysterectomy, Salpingo- Oophorectomy Other Female Surgeries/Procedures: X2 Endocrine Surgical History: Reports: None Musculoskeletal Surgical History: Reports: None, Other (See Below) Other Musculoskeletal Surgeries/Procedures:: rigth knee pain Oncologic Surgical History: Reports: Other (See Below) Other Oncologic Surgeries/Procedures: presently on chemo treatment last done on February 02, 2018. Dermatological Surgical History: Reports: None Social & Family History - Family History Family Medical History: Noncontributory GI: Reports: None - Tobacco Use Smoking Status *Q: Never Smoker - Caffeine Use Caffeine Use: Reports: None - Recreational Drug Use Recreational Drug Use: No H&P Review of Systems - Review of Systems: Review Of Systems: See Below General: Reports: Weakness, Fatigue, Decreased Appetite HEENT: Reports: No Symptoms Pulmonary: Reports: No Symptoms Cardiovascular: Reports: No Symptoms Gastrointestinal: Reports: Abdominal Pain, Anorexia, Diarrhea, Nausea, Vomiting Genitourinary: Reports: No Symptoms Musculoskeletal: Reports: No Symptoms Skin: Reports: No Symptoms Psychiatric: Reports: No Symptoms Neurological: Reports: No Symptoms Hematologic/Lymphatic: Reports: No Symptoms Immunologic: Reports: No Symptoms Exam - Exam Exam: See Below - Vital Signs Vital Signs: Last Vital Signs Temp 35.5 C 01/23/19 14:48 Pulse 93 01/23/19 14:48 Resp 18 01/23/19 14:48 BP 178/95 H 01/23/19 14:48 Pulse Ox 94 L 01/23/19 14:48 Weight: 86.183 kg - Exam Quality Assessment: Other (Chemotherapy report left upper chest wall). No: Supplemental Oxygen General: Alert, Oriented, Cooperative, Mild Distress HEENT: Conjunctiva Clear, EACs Clear, EOMI, Hearing Intact, Nares Patent, PERRLA. No: Mucosa Moist & [place] (Extremely dry) Neck: Supple, Trachea Midline. No: JVD, Thyromegaly Lungs: Clear to Auscultation, Normal Respiratory Effort Cardiovascular: Regular Rate, Regular Rhythm GI/Abdominal Exam: Soft, No Distention, Tender (Generalized). No: Normal Bowel Sounds (Hyperactive), Guarding, Rigid, Rebound (Female) Exam: Deferred Rectal (Female) Exam: Deferred Back Exam: Normal Inspection, Full Range of Motion, NT Extremities: Normal Inspection, Normal Range of Motion, No Pedal Edema Skin: Warm, Dry, Intact Neurological: Cranial Nerves Intact, Reflexes Equal Bilateral Neuro Extensive - Motor, Sensory, Reflexes: CN II-XII Intact, Normal Gait, Normal Reflexes Psychiatric: Alert, Normal Affect, Normal Mood - Patient Data Lab Results Last 24 hrs: Laboratory Results - last 24 hr 01/23/19 01/23/19 Range/Units 13:51 13:51 WBC 4.94 (4.0-11.0) K/uL RBC 4.46 (4.30-5.90) M/uL Hgb 13.9 (12.0-16.0) g/dL Hct 39.6 (36.0-46.0) % MCV 88.8 (80.0-98.0) fL MCH 31.2 (27.0-32.0) pg MCHC 35.1 (31.0-37.0) g/dL RDW Std Deviation 47.4 (28.0-62.0) fl RDW Coeff of Je 15 (11.0-15.0) % Plt Count 103 L (150-400) K/uL MPV 9.30 (7.40-12.00) fL Neut % (Auto) 59.7 (48.0-80.0) % Lymph % (Auto) 33.8 (16.0-40.0) % [place] % (Auto) 4.3 (0.0-15.0) % Eos % (Auto) 2.0 (0.0-7.0) % Baso % (Auto) 0.2 (0.0-1.5) % Neut # (Auto) 3.0 (1.4-5.7) K/uL Lymph # (Auto) 1.7 (0.6-2.4) K/uL [place] # (Auto) 0.2 (0.0-0.8) K/uL Eos # (Auto) 0.1 (0.0-0.7) K/uL Baso # (Auto) 0.0 (0.0-0.1) K/uL Nucleated RBC % 0.0 /100WBC Nucleated RBCs # 0 K/uL Sodium 133 L (136-145) mmol/L Potassium 3.3 L (3.5-5.1) mmol/L Chloride 98 (98-107) mmol/L Carbon Dioxide 26.7 (21.0-32.0) mmol/L BUN 13 (7.0-18.0) mg/dL Creatinine 0.8 (0.6-1.0) mg/dL Est Cr Clr Drug Dosing 64.18 mL/min Estimated GFR (MDRD) > 60.0 ml/min Glucose 214 H (74-106) mg/dL Calcium 8.4 L (8.5-10.1) mg/dL Total Bilirubin 1.4 H (0.2-1.0) mg/dL AST 53 H (15-37) IU/L ALT 80 H (14-63) IU/L Alkaline Phosphatase 241 H (46-116) U/L Total Protein 6.8 (6.4-8.2) g/dL Albumin 3.4 (3.4-5.0) g/dL Globulin 3.4 (2.6-4.0) g/dL Albumin/Globulin Ratio 1.0 (0.9-1.6) Result Diagrams: 01/23/19 13:51 01/23/19 13:51 - Problem List (1) Dehydration SNOMED Code(s): 74194593 ICD Code: E86.0 - DEHYDRATION Status: Acute Priority: High Current Visit: Yes (2) Gastroenteritis SNOMED Code(s): 22211450 ICD Code: K52.9 - NONINFECTIVE GASTROENTERITIS AND COLITIS, UNSPECIFIED Status: Acute Current Visit: Yes (3) Diabetes type 2, controlled SNOMED Code(s): 26494779, 238573261 ICD Code: E11.9 - TYPE 2 DIABETES MELLITUS WITHOUT COMPLICATIONS Status: Chronic Priority: High Current Visit: Yes Qualifiers: Diabetes mellitus mcfp insulin use: without intermission coordinator use Diabetes mellitus complication status: without complication Qualified Code(s): E11.9 - Type 2 diabetes mellitus without complications (4) Metastatic colon cancer in female SNOMED Code(s): 583446004, 058878694 ICD Code: C18.9 - MALIGNANT NEOPLASM OF COLON, UNSPECIFIED Status: Acute Priority: High Current Visit: Yes (5) UTI, Urinary tract infectious disease SNOMED Code(s): 11398056 ICD Code: N39.0 - URINARY TRACT INFECTION, SITE NOT SPECIFIED Status: Acute Priority: High Current Visit: Yes Onset Date: 12/02/14 (6) Abdominal pain SNOMED Code(s): 29288258 ICD Code: R10.9 - UNSPECIFIED ABDOMINAL PAIN Status: Chronic Priority: High Current Visit: Yes Onset Date: 12/02/14 (7) History of malignant neoplasm metastatic to liver SNOMED Code(s): 0222389896349671 ICD Code: Z85.05 - PERSONAL HISTORY OF MALIGNANT NEOPLASM OF LIVER Status: Chronic Priority: High Current Visit: Yes Problem List Initiated/Reviewed/Updated: Yes Orders Last 24hrs: Active Orders 24 hr Category Date Time Status Admission Status [Patient Status] [ADT] Stat ADT 01/23/19 14:56 Active CDIFF TOX A+B [OP] Stat Lab 01/23/19 14:00 Ordered CULTURE STOOL + CAMPY+SHIGATOX [RM] Stat Lab 01/23/19 14:00 Ordered OVA & PARASITES BY IMMUNOASSAY [MREF] Stat Lab 01/23/19 14:00 Ordered UA RFX [place] AND CULT IF INDIC [URIN] Stat Lab 01/23/19 14:00 Ordered cefTRIAXone [Rocephin in Dextrose,Iso-Osm 1 GM/50 ML] 1 Med 01/23/19 14:52 Active gm Premix Bag 1 bag IV ONETIME Isolation [COMM] Stat Oth 01/23/19 14:00 Ordered Medication Orders Ceftriaxone Sodium/Dextrose 1 (gm/ Premix) 50 mls @ 100 mls/hr IV ONETIME ONE Stop: 01/23/19 15:21 Last Admin: 01/23/19 14:56 Dose: 100 mls/hr Assessment/Plan Comment:: The patient is a 58-year-old lady with a history of metastatic colon cancer and has been undergoing chemotherapy. The patient will be admitted to observation. She is also in a full code resuscitation status. She is very dehydrated at this time and she will be aggressively hydrated with normal saline at 125 mL per hour. She also be kept on a clear liquid diet for now. The patient is also mildly thrombocytopenic and because of this pharmacological DVT prophylaxis will not be ordered. SCDs and been ordered for DVT prophylaxis. The patient is also diabetic and she will be kept on Accu-Cheks before meals and at bedtime as well as sliding scale insulin as needed for hyperglycemia. The patient also has been encouraged to ambulate. Her vital signs will be monitored every 4 hours and her medications will be adjusted as indicated. With hydration, symptom control the patient should be appropriate for discharge home in 1-2 days. The patient's home medication for her pain will also be continued.
[2019-01-23] MEDS ORDERED: Acetaminophen 325 MG Tab PO PRN (15:17)
[2019-01-23] MEDS ORDERED: Diphenhydramine/Lidocaine/Nystatin Suspension 237 ML Bottle PO PRN (15:20)
[2019-01-23] MEDS: Sodium Chloride 0.9% 1,000 ML IV SCH (16:21)
[2019-01-23] MEDS: Ondansetron 4 MG/2 ML SDV IVPUSH SCH ×2 (16:25→21:20)
[2019-01-23] MEDS: Pantoprazole 40 MG Tab.CR PO SCH (16:27)
[2019-01-23] MEDS: HYDROmorphone 2 MG Tab PO PRN ×2 (16:36→21:20)
[2019-01-23] MEDS: Insulin Aspart 100 Units/ML 3 ML Pen SUBCUT SCH ×2 (17:22→20:52)
[2019-01-23] MEDS ORDERED: Azithromycin 500 MG in Sodium Chloride 0.9% 250 ML IV SCH (17:30)
[2019-01-23] MEDS: Vancomycin 25 MG/ML Compounding Kit PO SCH ×2 (18:16→23:11)
[2019-01-23] MEDS: Diltiazem 180 MG Cap.CD PO SCH (20:50)
[2019-01-23] MEDS ORDERED: Insulin Aspart 100 Units/ML 3 ML Pen SUBCUT SCH (21:00)
[2019-01-24] MEDS: Levofloxacin/Dextrose 5%-Water 750 MG in Premix Bag 1 BAG IV SCH ×2 (00:34→23:39)
[2019-01-24] MEDS: Sodium Chloride 0.9% 1,000 ML IV SCH ×3 (00:36→23:34)
[2019-01-24] MEDS: Ondansetron 4 MG/2 ML SDV IVPUSH SCH ×4 (02:38→21:46)
[2019-01-24] MEDS ORDERED: Vancomycin 1,750 GM in Sodium Chloride 0.9% 500 ML IV ONE (03:00)
[2019-01-24] MEDS: LORazepam 1 MG Tab PO PRN (03:21)
[2019-01-24 05:46] LABS: CHLORIDE,CL 100 mmol/L (98-107); SODIUM,NA 135 mmol/L (136-145)
[2019-01-24] MEDS: Vancomycin 25 MG/ML Compounding Kit PO SCH ×4 (06:37→23:40)
[2019-01-24] MEDS: Pantoprazole 40 MG Tab.CR PO SCH ×2 (06:37→17:41)
[2019-01-24] MEDS ORDERED: Potassium Chloride 40 MEQ in Sodium Chloride 0.9% 480 ML IV ONE (08:30)
[2019-01-24] MEDS ORDERED: Magnesium Sulfate/Water 2 GM in Premix Bag 1 BAG IV ONE (09:00)
[2019-01-24] MEDS ORDERED: cefTRIAXone 1 GM in Premix Bag 1 BAG IV SCH (09:00)
[2019-01-24] MEDS: Insulin Aspart 100 Units/ML 3 ML Pen SUBCUT SCH ×4 (09:27→21:51)
[2019-01-24] MEDS: HYDROmorphone 2 MG Tab PO PRN ×2 (14:20→21:44)
--- NOTE | 2019-01-24 14:31 | PCM.PN ---
- General Info Date of Service: 01/24/19 - Review of Systems Systems Review Comment:: feeling better - Patient Data Vitals - Most Recent: Last Vital Signs Temp 36.4 C 01/24/19 11:18 Pulse 67 01/24/19 11:18 Resp 16 01/24/19 11:18 BP 139/67 01/24/19 11:18 Pulse Ox 98 01/24/19 11:18 Weight - Most Recent: 70.902 kg I&O - Last 24 Hours: Intake & Output 01/23/19 01/24/19 01/24/19 22:59 06:59 14:59 Intake Total 1987 594 Output Total 2200 Balance -213 594 Lab Results Last 24 Hours: Laboratory Results - last 24 hr 01/23/19 01/23/19 01/23/19 Range/Units 13:51 15:20 16:18 WBC (4.0-11.0) K/uL RBC (4.30-5.90) M/uL Hgb (12.0-16.0) g/dL Hct (36.0-46.0) % MCV (80.0-98.0) fL MCH (27.0-32.0) pg MCHC (31.0-37.0) g/dL RDW Std Deviation (28.0-62.0) fl RDW Coeff of Ej (11.0-15.0) % Plt Count (150-400) K/uL MPV (7.40-12.00) fL Neut % (Auto) (48.0-80.0) % Lymph % (Auto) (16.0-40.0) % [place] % (Auto) (0.0-15.0) % Eos % (Auto) (0.0-7.0) % Baso % (Auto) (0.0-1.5) % Neut # (Auto) (1.4-5.7) K/uL Lymph # (Auto) (0.6-2.4) K/uL [place] # (Auto) (0.0-0.8) K/uL Eos # (Auto) (0.0-0.7) K/uL Baso # (Auto) (0.0-0.1) K/uL Nucleated RBC % /100WBC Nucleated RBCs # K/uL Sodium 133 L (136-145) mmol/L Potassium 3.3 L (3.5-5.1) mmol/L Chloride 98 (98-107) mmol/L Carbon Dioxide 26.7 (21.0-32.0) mmol/L BUN 13 (7.0-18.0) mg/dL Creatinine 0.8 (0.6-1.0) mg/dL Est Cr Clr Drug Dosing 64.18 mL/min Estimated GFR (MDRD) > 60.0 ml/min Glucose 214 H (74-106) mg/dL POC Glucose 172 H (60-110) mg/dL Calcium 8.4 L (8.5-10.1) mg/dL Magnesium (1.8-2.4) mg/dL Total Bilirubin 1.4 H (0.2-1.0) mg/dL AST 53 H (15-37) IU/L ALT 80 H (14-63) IU/L Alkaline Phosphatase 241 H (46-116) U/L Total Protein 6.8 (6.4-8.2) g/dL Albumin 3.4 (3.4-5.0) g/dL Globulin 3.4 (2.6-4.0) g/dL Albumin/Globulin Ratio 1.0 (0.9-1.6) Urine Color YELLOW Urine Appearance CLEAR Urine pH 7.0 (5.0-8.0) Ur Specific [place] 1.015 (1.001-1.035) Urine Protein TRACE H (NEGATIVE) mg/dL Urine Glucose (UA) 100 H (NEGATIVE) mg/dL Urine Ketones TRACE H (NEGATIVE) mg/dL Urine Occult Blood NEGATIVE (NEGATIVE) Urine Nitrite NEGATIVE (NEGATIVE) Urine Bilirubin NEGATIVE (NEGATIVE) Urine Urobilinogen 0.2 (<2.0) EU/dL Ur Leukocyte Esterase SMALL H (NEGATIVE) Urine RBC 0-2 (0-2/HPF) Urine WBC 6-8 (0-5/HPF) Ur Epithelial Cells FEW (NONE-FEW) Urine Bacteria RARE (NEGATIVE) 01/23/19 01/23/19 01/24/19 Range/Units 19:39 20:47 03:08 WBC (4.0-11.0) K/uL RBC (4.30-5.90) M/uL Hgb (12.0-16.0) g/dL Hct (36.0-46.0) % MCV (80.0-98.0) fL MCH (27.0-32.0) pg MCHC (31.0-37.0) g/dL RDW Std Deviation (28.0-62.0) fl RDW Coeff of Ej (11.0-15.0) % Plt Count (150-400) K/uL MPV (7.40-12.00) fL Neut % (Auto) (48.0-80.0) % Lymph % (Auto) (16.0-40.0) % [place] % (Auto) (0.0-15.0) % Eos % (Auto) (0.0-7.0) % Baso % (Auto) (0.0-1.5) % Neut # (Auto) (1.4-5.7) K/uL Lymph # (Auto) (0.6-2.4) K/uL [place] # (Auto) (0.0-0.8) K/uL Eos # (Auto) (0.0-0.7) K/uL Baso # (Auto) (0.0-0.1) K/uL Nucleated RBC % /100WBC Nucleated RBCs # K/uL Sodium (136-145) mmol/L Potassium (3.5-5.1) mmol/L Chloride (98-107) mmol/L Carbon Dioxide (21.0-32.0) mmol/L BUN (7.0-18.0) mg/dL Creatinine (0.6-1.0) mg/dL Est Cr Clr Drug Dosing mL/min Estimated GFR (MDRD) ml/min Glucose (74-106) mg/dL POC Glucose 148 H 158 H 169 H (60-110) mg/dL Calcium (8.5-10.1) mg/dL Magnesium (1.8-2.4) mg/dL Total Bilirubin (0.2-1.0) mg/dL AST (15-37) IU/L ALT (14-63) IU/L Alkaline Phosphatase (46-116) U/L Total Protein (6.4-8.2) g/dL Albumin (3.4-5.0) g/dL Globulin (2.6-4.0) g/dL Albumin/Globulin Ratio (0.9-1.6) Urine Color Urine Appearance Urine pH (5.0-8.0) Ur Specific [place] (1.001-1.035) Urine Protein (NEGATIVE) mg/dL Urine Glucose (UA) (NEGATIVE) mg/dL Urine Ketones (NEGATIVE) mg/dL Urine Occult Blood (NEGATIVE) Urine Nitrite (NEGATIVE) Urine Bilirubin (NEGATIVE) Urine Urobilinogen (<2.0) EU/dL Ur Leukocyte Esterase (NEGATIVE) Urine RBC (0-2/HPF) Urine WBC (0-5/HPF) Ur Epithelial Cells (NONE-FEW) Urine Bacteria (NEGATIVE) 01/24/19 01/24/19 01/24/19 Range/Units 04:55 04:55 04:55 WBC 4.70 (4.0-11.0) K/uL RBC 4.08 L (4.30-5.90) M/uL Hgb 12.7 (12.0-16.0) g/dL Hct 36.2 (36.0-46.0) % MCV 88.7 (80.0-98.0) fL MCH 31.1 (27.0-32.0) pg MCHC 35.1 (31.0-37.0) g/dL RDW Std Deviation 46.7 (28.0-62.0) fl RDW Coeff of Ej 14 (11.0-15.0) % Plt Count 87 L (150-400) K/uL MPV 9.10 (7.40-12.00) fL Neut % (Auto) 64.3 (48.0-80.0) % Lymph % (Auto) 27.4 (16.0-40.0) % [place] % (Auto) 4.9 (0.0-15.0) % Eos % (Auto) 3.2 (0.0-7.0) % Baso % (Auto) 0.2 (0.0-1.5) % Neut # (Auto) 3.0 (1.4-5.7) K/uL Lymph # (Auto) 1.3 (0.6-2.4) K/uL [place] # (Auto) 0.2 (0.0-0.8) K/uL Eos # (Auto) 0.2 (0.0-0.7) K/uL Baso # (Auto) 0.0 (0.0-0.1) K/uL Nucleated RBC % 0.0 /100WBC Nucleated RBCs # 0 K/uL Sodium 135 L (136-145) mmol/L Potassium 2.9 L (3.5-5.1) mmol/L Chloride 100 (98-107) mmol/L Carbon Dioxide 22.0 (21.0-32.0) mmol/L BUN 8 (7.0-18.0) mg/dL Creatinine 0.8 (0.6-1.0) mg/dL Est Cr Clr Drug Dosing 61.36 mL/min Estimated GFR (MDRD) > 60.0 ml/min Glucose 186 H (74-106) mg/dL POC Glucose (60-110) mg/dL Calcium 7.7 L (8.5-10.1) mg/dL Magnesium 1.6 L (1.8-2.4) mg/dL Total Bilirubin 1.2 H (0.2-1.0) mg/dL AST 39 H (15-37) IU/L ALT 67 H (14-63) IU/L Alkaline Phosphatase 218 H (46-116) U/L Total Protein 6.3 L (6.4-8.2) g/dL Albumin 3.1 L (3.4-5.0) g/dL Globulin 3.2 (2.6-4.0) g/dL Albumin/Globulin Ratio 1.0 (0.9-1.6) Urine Color Urine Appearance Urine pH (5.0-8.0) Ur Specific [place] (1.001-1.035) Urine Protein (NEGATIVE) mg/dL Urine Glucose (UA) (NEGATIVE) mg/dL Urine Ketones (NEGATIVE) mg/dL Urine Occult Blood (NEGATIVE) Urine Nitrite (NEGATIVE) Urine Bilirubin (NEGATIVE) Urine Urobilinogen (<2.0) EU/dL Ur Leukocyte Esterase (NEGATIVE) Urine RBC (0-2/HPF) Urine WBC (0-5/HPF) Ur Epithelial Cells (NONE-FEW) Urine Bacteria (NEGATIVE) 01/24/19 01/24/19 Range/Units 07:31 12:21 WBC (4.0-11.0) K/uL RBC (4.30-5.90) M/uL Hgb (12.0-16.0) g/dL Hct (36.0-46.0) % MCV (80.0-98.0) fL MCH (27.0-32.0) pg MCHC (31.0-37.0) g/dL RDW Std Deviation (28.0-62.0) fl RDW Coeff of Ej (11.0-15.0) % Plt Count (150-400) K/uL MPV (7.40-12.00) fL Neut % (Auto) (48.0-80.0) % Lymph % (Auto) (16.0-40.0) % [place] % (Auto) (0.0-15.0) % Eos % (Auto) (0.0-7.0) % Baso % (Auto) (0.0-1.5) % Neut # (Auto) (1.4-5.7) K/uL Lymph # (Auto) (0.6-2.4) K/uL [place] # (Auto) (0.0-0.8) K/uL Eos # (Auto) (0.0-0.7) K/uL Baso # (Auto) (0.0-0.1) K/uL Nucleated RBC % /100WBC Nucleated RBCs # K/uL Sodium (136-145) mmol/L Potassium (3.5-5.1) mmol/L Chloride (98-107) mmol/L Carbon Dioxide (21.0-32.0) mmol/L BUN (7.0-18.0) mg/dL Creatinine (0.6-1.0) mg/dL Est Cr Clr Drug Dosing mL/min Estimated GFR (MDRD) ml/min Glucose (74-106) mg/dL POC Glucose 173 H 176 H (60-110) mg/dL Calcium (8.5-10.1) mg/dL Magnesium (1.8-2.4) mg/dL Total Bilirubin (0.2-1.0) mg/dL AST (15-37) IU/L ALT (14-63) IU/L Alkaline Phosphatase (46-116) U/L Total Protein (6.4-8.2) g/dL Albumin (3.4-5.0) g/dL Globulin (2.6-4.0) g/dL Albumin/Globulin Ratio (0.9-1.6) Urine Color Urine Appearance Urine pH (5.0-8.0) Ur Specific [place] (1.001-1.035) Urine Protein (NEGATIVE) mg/dL Urine Glucose (UA) (NEGATIVE) mg/dL Urine Ketones (NEGATIVE) mg/dL Urine Occult Blood (NEGATIVE) Urine Nitrite (NEGATIVE) Urine Bilirubin (NEGATIVE) Urine Urobilinogen (<2.0) EU/dL Ur Leukocyte Esterase (NEGATIVE) Urine RBC (0-2/HPF) Urine WBC (0-5/HPF) Ur Epithelial Cells (NONE-FEW) Urine Bacteria (NEGATIVE) Guru Results Last 24 Hours: Microbiology 01/23/19 15:20 Campylobacter Antigen Assay - Final Stool / Feces Positive Campylobacter Ag Shiga Toxin I - Final NEGATIVE FOR SHIGA TOXIN 1 Shiga Toxin II - Final NEGATIVE FOR SHIGA TOXIN 2 01/23/19 15:20 Clostridium difficile Toxin A & B - Final Stool / Feces Positive C. Diff Antigen 01/23/19 15:20 Stool for WBCs - Final Stool / Feces POSITIVE FOR WBC'S Med Orders - Current: Current Medications Acetaminophen (Tylenol) 650 mg PO Q4H PRN PRN Reason: Pain (Mild 1-3)/fever Diltiazem HCl (Cardizem Cd) 360 mg PO BEDTIME MARIA T Last Admin: 01/23/19 20:50 Dose: 360 mg Diphenhydramine/Nystatin/Lidocaine (Magic Mouthwash) 30 ml PO Q6H PRN PRN Reason: Other Hydromorphone HCl (Dilaudid) 4 mg PO Q4H PRN PRN Reason: moderate pain Last Admin: 01/23/19 21:20 Dose: 4 mg Levofloxacin/Dextrose 750 mg/ (Premix) 150 mls @ 100 mls/hr IV Q24H [facility] [place] Last Admin: 01/24/19 00:34 Dose: 100 mls/hr Vancomycin HCl 1 gm/ Sodium (Chloride) 250 mls @ 166 mls/hr IV Q12H [facility] [place] Sodium Chloride (Normal Saline) 1,000 mls @ 125 mls/hr IV ASDIRECTED [facility] [place] Insulin Aspart (Novolog) 0 unit SUBCUT QIDACANDBED [facility] [place]; Protocol Last Admin: 01/24/19 12:53 Dose: Not Given Lorazepam (Ativan) 1 mg PO Q6H PRN PRN Reason: Anxiety Last Admin: 01/24/19 03:21 Dose: 1 mg Ondansetron HCl (Zofran) 4 mg IVPUSH Q6H [facility] [place] Last Admin: 01/24/19 09:04 Dose: 4 mg Pantoprazole Sodium (Protonix) 40 mg PO BIDAC [facility] [place] Last Admin: 01/24/19 06:37 Dose: 40 mg Vancomycin HCl (First-Vancomycin 25 Compounding Kit) 125 mg PO QID [facility] [place] Last Admin: 01/24/19 11:10 Dose: 5 ml Vancomycin HCl (Pharmacy To Dose - Vancomycin) 1 dose .XX ASDIRECTED [facility] [place] Discontinued Medications Sodium Chloride (Normal Saline) 1,000 mls @ 999 mls/hr IV STAT ONE Stop: 01/23/19 15:00 Last Admin: 01/23/19 14:09 Dose: 999 mls/hr Ceftriaxone Sodium/Dextrose 1 (gm/ Premix) 50 mls @ 100 mls/hr IV ONETIME ONE Stop: 01/23/19 15:21 Last Admin: 01/23/19 14:56 Dose: 100 mls/hr Sodium Chloride (Normal Saline) 1,000 mls @ 125 mls/hr IV ASDIRECTED [facility] [place] Last Admin: 01/24/19 00:36 Dose: 125 mls/hr Ceftriaxone Sodium/Dextrose 1 (gm/ Premix) 50 mls @ 100 mls/hr IV Q24H [facility] [place] Last Admin: 01/24/19 09:35 Dose: Not Given Azithromycin 500 mg/ Sodium (Chloride) 250 mls @ 250 mls/hr IV Q24H [facility] [place] Last Admin: 01/23/19 18:46 Dose: 250 mls/hr Vancomycin HCl 1,750 gm/ (Sodium Chloride) 500 mls @ 333.333 mls/hr IV NOW ONE Stop: 01/24/19 04:29 Last Admin: 01/24/19 02:59 Dose: 333.333 mls/hr Azithromycin 500 mg/ Sodium (Chloride) 250 mls @ 250 mls/hr IV Q24H [facility] [place] Potassium Chloride 40 meq/ (Sodium Chloride) 500 mls @ 125 mls/hr IV ONETIME ONE Stop: 01/24/19 12:29 Last Admin: 01/24/19 10:45 Dose: 125 mls/hr Magnesium Sulfate 2 gm/ Premix 50 mls @ 50 mls/hr IV ONETIME ONE Stop: 01/24/19 09:59 Last Admin: 01/24/19 09:24 Dose: 50 mls/hr Insulin Aspart (Novolog) 0 unit SUBCUT ACBREAKFASTANDBED MARIA T; Protocol - Exam General: Alert, Oriented Lungs: Clear to Auscultation, Normal Respiratory Effort Cardiovascular: Regular Rate, Regular Rhythm GI/Abdominal Exam: Normal Bowel Sounds, Soft, Non-Tender Extremities: Non-Tender, No Pedal Edema Skin: Warm, Dry, Intact - Problem List Review Problem List Initiated/Reviewed/Updated: Yes - My Orders Last 24 Hours: My Active Orders 01/23/19 23:15 Levofloxacin/Dextrose 5%-Water [Levaquin in D5W 750 MG/150 ML] 750 mg Premix Bag 1 bag IV Q24H 01/24/19 02:30 Pharmacy to Dose - Vancomycin 1 dose .XX ASDIRECTED 01/24/19 14:24 Admission Status [Patient Status] [ADT] Routine 01/24/19 15:00 Vancomycin [Vancocin] 1 gm Sodium Chloride 0.9% [Normal Saline] 250 ml IV Q12H 01/25/19 05:11 BASIC METABOLIC PANEL,BMP [CHEM] AM CBC WITH AUTO DIFF [HEME] AM 01/26/19 05:11 BASIC METABOLIC PANEL,BMP [CHEM] AM CBC WITH AUTO DIFF [HEME] AM - Plan Plan:: 58 yo female with pmh of metastatic colon cancer currently undergoing chemotherapy who presents with nausea and vomting. Admitted for gastroenteritis and dehydration and found to be C.diff and campylobacter positive. 1/4 blood cultures are growing gram positive cocci. We are treating with IV fluids and advancing diet as tolerated. Patient is on Levaquin for campylobacter. She had an adverse reaction to the azithromycin last night. She will be on IV and PO vancomycin for her C.diff and positive blood cultures. We will repeat blood cultures today.
[2019-01-24] MEDS ORDERED: Azithromycin 500 MG in Sodium Chloride 0.9% 250 ML IV SCH (17:30)
[2019-01-24] MEDS: Diltiazem 180 MG Cap.CD PO SCH (21:47)
[2019-01-25] MEDS: Ondansetron 4 MG/2 ML SDV IVPUSH SCH ×2 (02:35→08:40)
[2019-01-25] MEDS: HYDROmorphone 2 MG Tab PO PRN ×5 (02:35→21:22)
[2019-01-25] MEDS: LORazepam 1 MG Tab PO PRN (02:42)
[2019-01-25 05:37] LABS: CHLORIDE,CL 103 mmol/L (98-107); SODIUM,NA 136 mmol/L (136-145)
[2019-01-25] MEDS: Vancomycin 25 MG/ML Compounding Kit PO SCH ×3 (06:29→17:43)
[2019-01-25] MEDS: Pantoprazole 40 MG Tab.CR PO SCH ×2 (06:32→17:43)
[2019-01-25] MEDS: Insulin Aspart 100 Units/ML 3 ML Pen SUBCUT SCH ×4 (07:47→21:23)
--- NOTE | 2019-01-25 10:35 | PCM.PN ---
- General Info Date of Service: 01/25/19 - Review of Systems Systems Review Comment:: feeling better, eating toast and jello - Patient Data Vitals - Most Recent: Last Vital Signs Temp 36.7 C 01/25/19 08:00 Pulse 82 01/25/19 08:00 Resp 16 01/25/19 08:00 BP 176/93 H 01/25/19 08:00 Pulse Ox 93 L 01/25/19 04:00 Weight - Most Recent: 70.902 kg I&O - Last 24 Hours: Intake & Output 01/24/19 01/25/19 01/25/19 22:59 06:59 14:59 Intake Total 440 1811 Output Total 950 1850 Balance -510 -39 Lab Results Last 24 Hours: Laboratory Results - last 24 hr 01/24/19 01/24/19 01/24/19 Range/Units 07:31 12:21 16:11 WBC (4.0-11.0) K/uL RBC (4.30-5.90) M/uL Hgb (12.0-16.0) g/dL Hct (36.0-46.0) % MCV (80.0-98.0) fL MCH (27.0-32.0) pg MCHC (31.0-37.0) g/dL RDW Std Deviation (28.0-62.0) fl RDW Coeff of Ej (11.0-15.0) % Plt Count (150-400) K/uL MPV (7.40-12.00) fL Neut % (Auto) (48.0-80.0) % Lymph % (Auto) (16.0-40.0) % [place] % (Auto) (0.0-15.0) % Eos % (Auto) (0.0-7.0) % Baso % (Auto) (0.0-1.5) % Neut # (Auto) (1.4-5.7) K/uL Lymph # (Auto) (0.6-2.4) K/uL [place] # (Auto) (0.0-0.8) K/uL Eos # (Auto) (0.0-0.7) K/uL Baso # (Auto) (0.0-0.1) K/uL Nucleated RBC % /100WBC Nucleated RBCs # K/uL Sodium (136-145) mmol/L Potassium (3.5-5.1) mmol/L Chloride (98-107) mmol/L Carbon Dioxide (21.0-32.0) mmol/L BUN (7.0-18.0) mg/dL Creatinine (0.6-1.0) mg/dL Est Cr Clr Drug Dosing mL/min Estimated GFR (MDRD) ml/min Glucose (74-106) mg/dL POC Glucose 173 H 176 H 161 H (60-110) mg/dL Calcium (8.5-10.1) mg/dL Magnesium (1.8-2.4) mg/dL 01/24/19 01/25/19 01/25/19 Range/Units 21:07 05:10 05:10 WBC 4.16 (4.0-11.0) K/uL RBC 3.68 L (4.30-5.90) M/uL Hgb 11.4 L (12.0-16.0) g/dL Hct 32.6 L (36.0-46.0) % MCV 88.6 (80.0-98.0) fL MCH 31.0 (27.0-32.0) pg MCHC 35.0 (31.0-37.0) g/dL RDW Std Deviation 46.5 (28.0-62.0) fl RDW Coeff of Ej 14 (11.0-15.0) % Plt Count 78 L (150-400) K/uL MPV 9.40 (7.40-12.00) fL Neut % (Auto) 46.7 L (48.0-80.0) % Lymph % (Auto) 40.4 H (16.0-40.0) % [place] % (Auto) 6.7 (0.0-15.0) % Eos % (Auto) 6.0 (0.0-7.0) % Baso % (Auto) 0.2 (0.0-1.5) % Neut # (Auto) 1.9 (1.4-5.7) K/uL Lymph # (Auto) 1.7 (0.6-2.4) K/uL [place] # (Auto) 0.3 (0.0-0.8) K/uL Eos # (Auto) 0.3 (0.0-0.7) K/uL Baso # (Auto) 0.0 (0.0-0.1) K/uL Nucleated RBC % 0.0 /100WBC Nucleated RBCs # 0 K/uL Sodium 136 (136-145) mmol/L Potassium 3.1 L (3.5-5.1) mmol/L Chloride 103 (98-107) mmol/L Carbon Dioxide 22.9 (21.0-32.0) mmol/L BUN 5 L (7.0-18.0) mg/dL Creatinine 0.7 (0.6-1.0) mg/dL Est Cr Clr Drug Dosing 70.13 mL/min Estimated GFR (MDRD) > 60.0 ml/min Glucose 155 H (74-106) mg/dL POC Glucose 128 H (60-110) mg/dL Calcium 7.6 L (8.5-10.1) mg/dL Magnesium (1.8-2.4) mg/dL 01/25/19 01/25/19 Range/Units 05:10 05:11 WBC (4.0-11.0) K/uL RBC (4.30-5.90) M/uL Hgb (12.0-16.0) g/dL Hct (36.0-46.0) % MCV (80.0-98.0) fL MCH (27.0-32.0) pg MCHC (31.0-37.0) g/dL RDW Std Deviation (28.0-62.0) fl RDW Coeff of Ej (11.0-15.0) % Plt Count (150-400) K/uL MPV (7.40-12.00) fL Neut % (Auto) (48.0-80.0) % Lymph % (Auto) (16.0-40.0) % [place] % (Auto) (0.0-15.0) % Eos % (Auto) (0.0-7.0) % Baso % (Auto) (0.0-1.5) % Neut # (Auto) (1.4-5.7) K/uL Lymph # (Auto) (0.6-2.4) K/uL [place] # (Auto) (0.0-0.8) K/uL Eos # (Auto) (0.0-0.7) K/uL Baso # (Auto) (0.0-0.1) K/uL Nucleated RBC % /100WBC Nucleated RBCs # K/uL Sodium (136-145) mmol/L Potassium (3.5-5.1) mmol/L Chloride (98-107) mmol/L Carbon Dioxide (21.0-32.0) mmol/L BUN (7.0-18.0) mg/dL Creatinine (0.6-1.0) mg/dL Est Cr Clr Drug Dosing mL/min Estimated GFR (MDRD) ml/min Glucose (74-106) mg/dL POC Glucose 148 H (60-110) mg/dL Calcium (8.5-10.1) mg/dL Magnesium 1.7 L (1.8-2.4) mg/dL Guru Results Last 24 Hours: Microbiology 01/23/19 15:20 Cryptosporidium/Giardia - Final Stool / Feces 01/24/19 09:33 Aerobic Blood Culture - Preliminary Blood NO GROWTH AFTER 1 DAY Anaerobic Blood Culture - Preliminary NO GROWTH AFTER 1 DAY 01/23/19 15:20 Stool Culture - Final Stool / Feces NO SALMONELLA, SHIGELLA,OR E.COLI O157 ISOLATED Campylobacter Antigen Assay - Final Positive Campylobacter Ag Shiga Toxin I - Final NEGATIVE FOR SHIGA TOXIN 1 Shiga Toxin II - Final NEGATIVE FOR SHIGA TOXIN 2 01/23/19 15:20 Helicobacter pylori Antigen - Final Stool / Feces Med Orders - Current: Current Medications Acetaminophen (Tylenol) 650 mg PO Q4H PRN PRN Reason: Pain (Mild 1-3)/fever Diltiazem HCl (Cardizem Cd) 360 mg PO BEDTIME [facility] Last Admin: 01/24/19 21:47 Dose: 360 mg Diphenhydramine/Nystatin/Lidocaine (Magic Mouthwash) 30 ml PO Q6H PRN PRN Reason: Other Hydromorphone HCl (Dilaudid) 4 mg PO Q4H PRN PRN Reason: moderate pain Last Admin: 01/25/19 06:29 Dose: 4 mg Levofloxacin/Dextrose 750 mg/ (Premix) 150 mls @ 100 mls/hr IV Q24H [facility] Last Admin: 01/24/19 23:39 Dose: 100 mls/hr Vancomycin HCl 1 gm/ Sodium (Chloride) 250 mls @ 166 mls/hr IV Q12H [facility] Last Admin: 01/25/19 02:43 Dose: 166 mls/hr Potassium Chloride/Sodium Chloride (Normal Saline With 20 Meq Kcl) 1,000 mls @ 125 mls/hr IV ASDIRECTED [facility] Insulin Aspart (Novolog) 0 unit SUBCUT QIDACANDBED [facility]; Protocol Last Admin: 01/25/19 07:47 Dose: Not Given Lorazepam (Ativan) 1 mg PO Q6H PRN PRN Reason: Anxiety Last Admin: 01/25/19 02:42 Dose: 1 mg Ondansetron HCl (Zofran) 4 mg IVPUSH Q6H [facility] Last Admin: 01/25/19 08:40 Dose: 4 mg Pantoprazole Sodium (Protonix) 40 mg PO BIDAC [facility] Last Admin: 01/25/19 06:32 Dose: 40 mg Vancomycin HCl (First-Vancomycin 25 Compounding Kit) 125 mg PO QID [facility] Last Admin: 01/25/19 06:29 Dose: 5 ml Vancomycin HCl (Pharmacy To Dose - Vancomycin) 1 dose .XX ASDIRECTED [facility] Discontinued Medications Sodium Chloride (Normal Saline) 1,000 mls @ 999 mls/hr IV STAT ONE Stop: 01/23/19 15:00 Last Admin: 01/23/19 14:09 Dose: 999 mls/hr Ceftriaxone Sodium/Dextrose 1 (gm/ Premix) 50 mls @ 100 mls/hr IV ONETIME ONE Stop: 01/23/19 15:21 Last Admin: 01/23/19 14:56 Dose: 100 mls/hr Sodium Chloride (Normal Saline) 1,000 mls @ 125 mls/hr IV ASDIRECTED [facility] Last Admin: 01/24/19 00:36 Dose: 125 mls/hr Ceftriaxone Sodium/Dextrose 1 (gm/ Premix) 50 mls @ 100 mls/hr IV Q24H [facility] Last Admin: 01/24/19 09:35 Dose: Not Given Azithromycin 500 mg/ Sodium (Chloride) 250 mls @ 250 mls/hr IV Q24H [facility] Last Admin: 01/23/19 18:46 Dose: 250 mls/hr Vancomycin HCl 1,750 gm/ (Sodium Chloride) 500 mls @ 333.333 mls/hr IV NOW ONE Stop: 01/24/19 04:29 Last Admin: 01/24/19 02:59 Dose: 333.333 mls/hr Azithromycin 500 mg/ Sodium (Chloride) 250 mls @ 250 mls/hr IV Q24H [facility] Potassium Chloride 40 meq/ (Sodium Chloride) 500 mls @ 125 mls/hr IV ONETIME ONE Stop: 01/24/19 12:29 Last Admin: 01/24/19 10:45 Dose: 125 mls/hr Magnesium Sulfate 2 gm/ Premix 50 mls @ 50 mls/hr IV ONETIME ONE Stop: 01/24/19 09:59 Last Admin: 01/24/19 09:24 Dose: 50 mls/hr Sodium Chloride (Normal Saline) 1,000 mls @ 125 mls/hr IV ASDIRECTED [facility] Last Admin: 01/24/19 23:34 Dose: 125 mls/hr Insulin Aspart (Novolog) 0 unit SUBCUT ACBREAKFASTANDBED [facility]; Protocol - Exam General: Alert, Oriented Lungs: Clear to Auscultation, Normal Respiratory Effort Cardiovascular: Regular Rate, Regular Rhythm GI/Abdominal Exam: Normal Bowel Sounds, Soft, Non-Tender Skin: Warm, Dry, Intact - Problem List Review Problem List Initiated/Reviewed/Updated: Yes - My Orders Last 24 Hours: My Active Orders 01/24/19 14:24 Admission Status [Patient Status] [ADT] Routine 01/24/19 15:00 Vancomycin [Vancocin] 1 gm Sodium Chloride 0.9% [Normal Saline] 250 ml IV Q12H 01/26/19 05:11 BASIC METABOLIC PANEL,BMP [CHEM] AM CBC WITH AUTO DIFF [HEME] AM - Plan Plan:: 58 yo female with pmh of metastatic colon cancer currently undergoing chemotherapy who presents with nausea and vomiting. Admitted for gastroenteritis and dehydration. C.diff and cmpylobacter colitis: on PO vancomycin and Levaquin 1/4 blood cultures growing coag negative staff: continue IV vancomycin repeat cultures pending. Hypokalemia: replacing
[2019-01-25] MEDS: Ondansetron 4 MG/2 ML SDV IVPUSH PRN ×3 (11:14→21:21)
[2019-01-25] MEDS: NS + KCl 20mEq/L 1,000 ML IV SCH ×2 (11:40→21:22)
[2019-01-25] MEDS: Diltiazem 180 MG Cap.CD PO SCH (21:21)
[2019-01-26] MEDS: Vancomycin 25 MG/ML Compounding Kit PO SCH ×5 (00:01→23:00)
[2019-01-26] MEDS: Levofloxacin/Dextrose 5%-Water 750 MG in Premix Bag 1 BAG IV SCH ×2 (01:37→22:38)
[2019-01-26] MEDS: Ondansetron 4 MG/2 ML SDV IVPUSH PRN ×3 (04:08→22:08)
[2019-01-26] MEDS: LORazepam 1 MG Tab PO PRN ×2 (05:42→22:35)
[2019-01-26 06:20] LABS: CHLORIDE,CL 106 mmol/L (98-107); SODIUM,NA 139 mmol/L (136-145)
[2019-01-26] MEDS: Pantoprazole 40 MG Tab.CR PO SCH ×2 (06:51→17:17)
[2019-01-26] MEDS: Insulin Aspart 100 Units/ML 3 ML Pen SUBCUT SCH ×4 (09:44→22:35)
[2019-01-26] MEDS: NS + KCl 20mEq/L 1,000 ML IV SCH ×2 (09:46→19:38)
--- NOTE | 2019-01-26 10:08 | PCM.PN ---
- General Info Date of Service: 01/26/19 - Review of Systems Systems Review Comment:: eating more today. feels like she might be able to go home tomorrow. - Patient Data Vitals - Most Recent: Last Vital Signs Temp 36.4 C 01/26/19 07:45 Pulse 70 01/26/19 07:45 Resp 16 01/26/19 07:45 BP 175/85 H 01/26/19 07:45 Pulse Ox 98 01/26/19 07:45 Weight - Most Recent: 70.902 kg I&O - Last 24 Hours: Intake & Output 01/25/19 01/26/19 01/26/19 22:59 06:59 14:59 Intake Total 1939 1824 Output Total 2049 1899 Balance -110 -75 Lab Results Last 24 Hours: Laboratory Results - last 24 hr 01/25/19 01/25/19 01/25/19 Range/Units 12:00 14:06 17:29 WBC (4.0-11.0) K/uL RBC (4.30-5.90) M/uL Hgb (12.0-16.0) g/dL Hct (36.0-46.0) % MCV (80.0-98.0) fL MCH (27.0-32.0) pg MCHC (31.0-37.0) g/dL RDW Std Deviation (28.0-62.0) fl RDW Coeff of Ej (11.0-15.0) % Plt Count (150-400) K/uL MPV (7.40-12.00) fL Neut % (Auto) (48.0-80.0) % Lymph % (Auto) (16.0-40.0) % [place] % (Auto) (0.0-15.0) % Eos % (Auto) (0.0-7.0) % Baso % (Auto) (0.0-1.5) % Neut # (Auto) (1.4-5.7) K/uL Lymph # (Auto) (0.6-2.4) K/uL [place] # (Auto) (0.0-0.8) K/uL Eos # (Auto) (0.0-0.7) K/uL Baso # (Auto) (0.0-0.1) K/uL Nucleated RBC % /100WBC Nucleated RBCs # K/uL Sodium (136-145) mmol/L Potassium (3.5-5.1) mmol/L Chloride (98-107) mmol/L Carbon Dioxide (21.0-32.0) mmol/L BUN (7.0-18.0) mg/dL Creatinine (0.6-1.0) mg/dL Est Cr Clr Drug Dosing mL/min Estimated GFR (MDRD) ml/min Glucose (74-106) mg/dL POC Glucose 184 H 187 H (60-110) mg/dL Calcium (8.5-10.1) mg/dL Vancomycin Trough 10.8 H (5.0-10.0) ug/mL 01/25/19 01/26/19 01/26/19 Range/Units 21:03 05:40 05:40 WBC 4.71 (4.0-11.0) K/uL RBC 3.72 L (4.30-5.90) M/uL Hgb 11.5 L (12.0-16.0) g/dL Hct 33.0 L (36.0-46.0) % MCV 88.7 (80.0-98.0) fL MCH 30.9 (27.0-32.0) pg MCHC 34.8 (31.0-37.0) g/dL RDW Std Deviation 46.9 (28.0-62.0) fl RDW Coeff of Ej 14 (11.0-15.0) % Plt Count 98 L (150-400) K/uL MPV 9.60 (7.40-12.00) fL Neut % (Auto) 53.8 (48.0-80.0) % Lymph % (Auto) 34.4 (16.0-40.0) % [place] % (Auto) 5.7 (0.0-15.0) % Eos % (Auto) 5.9 (0.0-7.0) % Baso % (Auto) 0.2 (0.0-1.5) % Neut # (Auto) 2.5 (1.4-5.7) K/uL Lymph # (Auto) 1.6 (0.6-2.4) K/uL [place] # (Auto) 0.3 (0.0-0.8) K/uL Eos # (Auto) 0.3 (0.0-0.7) K/uL Baso # (Auto) 0.0 (0.0-0.1) K/uL Nucleated RBC % 0.0 /100WBC Nucleated RBCs # 0 K/uL Sodium 139 (136-145) mmol/L Potassium 3.4 L (3.5-5.1) mmol/L Chloride 106 (98-107) mmol/L Carbon Dioxide 24.2 (21.0-32.0) mmol/L BUN 3 L (7.0-18.0) mg/dL Creatinine 0.7 (0.6-1.0) mg/dL Est Cr Clr Drug Dosing 70.13 mL/min Estimated GFR (MDRD) > 60.0 ml/min Glucose 179 H (74-106) mg/dL POC Glucose 261 H (60-110) mg/dL Calcium 7.9 L (8.5-10.1) mg/dL Vancomycin Trough (5.0-10.0) ug/mL 01/26/19 Range/Units 05:41 WBC (4.0-11.0) K/uL RBC (4.30-5.90) M/uL Hgb (12.0-16.0) g/dL Hct (36.0-46.0) % MCV (80.0-98.0) fL MCH (27.0-32.0) pg MCHC (31.0-37.0) g/dL RDW Std Deviation (28.0-62.0) fl RDW Coeff of Ej (11.0-15.0) % Plt Count (150-400) K/uL MPV (7.40-12.00) fL Neut % (Auto) (48.0-80.0) % Lymph % (Auto) (16.0-40.0) % [place] % (Auto) (0.0-15.0) % Eos % (Auto) (0.0-7.0) % Baso % (Auto) (0.0-1.5) % Neut # (Auto) (1.4-5.7) K/uL Lymph # (Auto) (0.6-2.4) K/uL [place] # (Auto) (0.0-0.8) K/uL Eos # (Auto) (0.0-0.7) K/uL Baso # (Auto) (0.0-0.1) K/uL Nucleated RBC % /100WBC Nucleated RBCs # K/uL Sodium (136-145) mmol/L Potassium (3.5-5.1) mmol/L Chloride (98-107) mmol/L Carbon Dioxide (21.0-32.0) mmol/L BUN (7.0-18.0) mg/dL Creatinine (0.6-1.0) mg/dL Est Cr Clr Drug Dosing mL/min Estimated GFR (MDRD) ml/min Glucose (74-106) mg/dL POC Glucose 167 H (60-110) mg/dL Calcium (8.5-10.1) mg/dL Vancomycin Trough (5.0-10.0) ug/mL Guru Results Last 24 Hours: Microbiology 01/24/19 09:33 Aerobic Blood Culture - Preliminary Blood NO GROWTH AFTER 2 DAYS Anaerobic Blood Culture - Preliminary NO GROWTH AFTER 2 DAYS 01/23/19 15:20 Cryptosporidium/Giardia - Final Stool / Feces 01/23/19 15:20 Stool Culture - Final Stool / Feces NO SALMONELLA, SHIGELLA,OR E.COLI O157 ISOLATED Campylobacter Antigen Assay - Final Positive Campylobacter Ag Shiga Toxin I - Final NEGATIVE FOR SHIGA TOXIN 1 Shiga Toxin II - Final NEGATIVE FOR SHIGA TOXIN 2 01/23/19 15:20 Helicobacter pylori Antigen - Final Stool / Feces Med Orders - Current: Current Medications Acetaminophen (Tylenol) 650 mg PO Q4H PRN PRN Reason: Pain (Mild 1-3)/fever Diltiazem HCl (Cardizem Cd) 360 mg PO BEDTIME [facility] Last Admin: 01/25/19 21:21 Dose: 360 mg Diphenhydramine/Nystatin/Lidocaine (Magic Mouthwash) 30 ml PO Q6H PRN PRN Reason: Other Hydromorphone HCl (Dilaudid) 4 mg PO Q4H PRN PRN Reason: moderate pain Last Admin: 01/25/19 21:22 Dose: 4 mg Levofloxacin/Dextrose 750 mg/ (Premix) 150 mls @ 100 mls/hr IV Q24H [facility] Last Admin: 01/26/19 01:37 Dose: 100 mls/hr Potassium Chloride/Sodium Chloride (Normal Saline With 20 Meq Kcl) 1,000 mls @ 125 mls/hr IV ASDIRECTED [facility] Last Admin: 01/26/19 09:46 Dose: 125 mls/hr Insulin Aspart (Novolog) 0 unit SUBCUT QIDACANDBED [facility]; Protocol Last Admin: 01/26/19 09:44 Dose: 2 units Lorazepam (Ativan) 1 mg PO Q6H PRN PRN Reason: Anxiety Last Admin: 01/26/19 05:42 Dose: 1 mg Ondansetron HCl (Zofran) 4 mg IVPUSH Q4H PRN PRN Reason: Nausea Last Admin: 01/26/19 04:08 Dose: 4 mg Pantoprazole Sodium (Protonix) 40 mg PO BIDAC [facility] Last Admin: 01/26/19 06:51 Dose: 40 mg Vancomycin HCl (First-Vancomycin 25 Compounding Kit) 125 mg PO QID [facility] Last Admin: 01/26/19 05:42 Dose: 5 ml Discontinued Medications Sodium Chloride (Normal Saline) 1,000 mls @ 999 mls/hr IV STAT ONE Stop: 01/23/19 15:00 Last Admin: 01/23/19 14:09 Dose: 999 mls/hr Ceftriaxone Sodium/Dextrose 1 (gm/ Premix) 50 mls @ 100 mls/hr IV ONETIME ONE Stop: 01/23/19 15:21 Last Admin: 01/23/19 14:56 Dose: 100 mls/hr Sodium Chloride (Normal Saline) 1,000 mls @ 125 mls/hr IV ASDIRECTED [facility] Last Admin: 01/24/19 00:36 Dose: 125 mls/hr Ceftriaxone Sodium/Dextrose 1 (gm/ Premix) 50 mls @ 100 mls/hr IV Q24H [facility] Last Admin: 01/24/19 09:35 Dose: Not Given Azithromycin 500 mg/ Sodium (Chloride) 250 mls @ 250 mls/hr IV Q24H [facility] Last Admin: 01/23/19 18:46 Dose: 250 mls/hr Vancomycin HCl 1,750 gm/ (Sodium Chloride) 500 mls @ 333.333 mls/hr IV NOW ONE Stop: 01/24/19 04:29 Last Admin: 01/24/19 02:59 Dose: 333.333 mls/hr Vancomycin HCl 1 gm/ Sodium (Chloride) 250 mls @ 166 mls/hr IV Q12H [facility] Stop: 01/25/19 18:00 Last Admin: 01/25/19 15:44 Dose: 166 mls/hr Azithromycin 500 mg/ Sodium (Chloride) 250 mls @ 250 mls/hr IV Q24H [facility] Potassium Chloride 40 meq/ (Sodium Chloride) 500 mls @ 125 mls/hr IV ONETIME ONE Stop: 01/24/19 12:29 Last Admin: 01/24/19 10:45 Dose: 125 mls/hr Magnesium Sulfate 2 gm/ Premix 50 mls @ 50 mls/hr IV ONETIME ONE Stop: 01/24/19 09:59 Last Admin: 01/24/19 09:24 Dose: 50 mls/hr Sodium Chloride (Normal Saline) 1,000 mls @ 125 mls/hr IV ASDIRECTED [facility] Last Admin: 01/24/19 23:34 Dose: 125 mls/hr Vancomycin HCl 1 gm/ Sodium (Chloride) 250 mls @ 166 mls/hr IV Q8H [facility] Last Admin: 01/26/19 06:50 Dose: 166 mls/hr Insulin Aspart (Novolog) 0 unit SUBCUT ACBREAKFASTANDBED [facility]; Protocol Ondansetron HCl (Zofran) 4 mg IVPUSH Q6H [facility] Last Admin: 01/25/19 08:40 Dose: 4 mg Vancomycin HCl (Pharmacy To Dose - Vancomycin) 1 dose .XX ASDIRECTED [facility] - Exam General: Alert, Oriented Lungs: Clear to Auscultation, Normal Respiratory Effort Cardiovascular: Regular Rate, Regular Rhythm GI/Abdominal Exam: Normal Bowel Sounds, Soft, Non-Tender Extremities: Non-Tender, No Pedal Edema Skin: Warm, Dry, Intact - Problem List Review Problem List Initiated/Reviewed/Updated: Yes - My Orders Last 24 Hours: My Active Orders 01/26/19 Lunch ADA Diabetic [[place] [employer] Diet] [DIET] - Plan Plan:: 58 yo female with pmh of metastatic colon cancer currently undergoing chemotherapy who presents with nausea and vomiting. Admitted for gastroenteritis and dehydration. C.diff and campylobacter colitis: on PO vancomycin and Levaquin 10/11 blood cultures growing coag negative staff: likely a contaminate, will d/c IV vancomycin dispo: likely home tomorrow.
[2019-01-26] MEDS: HYDROmorphone 2 MG Tab PO PRN ×2 (10:38→22:36)
[2019-01-26] MEDS ORDERED: Magnesium Sulfate/Water 4 GM in Premix Bag 1 BAG IV ONE (12:56)
[2019-01-26] MEDS: Diltiazem 180 MG Cap.CD PO SCH (22:37)
[2019-01-26] MEDS ORDERED: cloNIDine 0.1 MG Tab PO ONE (23:15)
[2019-01-27] MEDS: Ondansetron 4 MG/2 ML SDV IVPUSH PRN (04:20)
[2019-01-27] MEDS: Vancomycin 25 MG/ML Compounding Kit PO SCH ×2 (05:20→11:13)
[2019-01-27] MEDS: NS + KCl 20mEq/L 1,000 ML IV SCH (05:21)
[2019-01-27] MEDS: HYDROmorphone 2 MG Tab PO PRN (05:36)
[2019-01-27 06:00] LABS: CHLORIDE,CL 106 mmol/L (98-107); SODIUM,NA 139 mmol/L (136-145)
[2019-01-27] MEDS: Pantoprazole 40 MG Tab.CR PO SCH (06:37)
[2019-01-27] MEDS: Insulin Aspart 100 Units/ML 3 ML Pen SUBCUT SCH ×2 (08:03→11:16)
[2019-01-27 09:28] VITALS: BP 138/76
--- NOTE | 2019-01-27 10:14 | PCM.DCSUM1 ---
Discharge Summary - Hospital Course Brief History: The patient is a 58-year-old lady who has presented to the emergency room with 4 day history of acute on chronic abdominal pain. The patient is also had severe nausea, vomiting and diarrhea. The patient also has metastatic colon cancer and she has been started recently on chemotherapy for liver metastases. The patient says that she feels very dehydrated. The patient also had presented to her oncologist, Dr. Heart, and it was suggested that the patient be admitted with her symptoms controlled and aggressively hydrated. The patient also has a history of C. difficile. She has denied any fever or chills. No shortness of breath. Diagnosis: Stroke: No - Discharge Data Discharge Date: 01/27/19 Discharge Disposition: Home, Self-Care 01 Condition: Good - Patient Instructions Diet: GI Soft/Low Residue/Low Fiber Activity: As Tolerated Showering/Bathing: May Shower Notify Provider of: Fever, Increased Pain, Swelling and Redness, Drainage, Nausea and/or Vomiting - Discharge Plan *PRESCRIPTION DRUG MONITORING PROGRAM REVIEWED*: Not Applicable *COPY OF PRESCRIPTION DRUG MONITORING REPORT IN PATIENT THELMA: Not Applicable Home Medications: Home Meds atorvaSTATin Calcium [Atorvastatin Calcium] 20 mg PO BEDTIME 05/09/14 [History] dilTIAZem HCl [Diltiazem 24Hr ER (LA)] 360 mg PO BEDTIME 05/09/14 [History] metFORMIN [Glucophage] 1,000 mg PO BIDMEALS 05/09/14 [History] HYDROmorphone [Dilaudid] 1 - 2 tab PO Q4H PRN 10/27/15 [History] LORazepam [Ativan] 1 mg PO Q6H PRN 12/26/15 [History] Ondansetron [Zofran ODT] 4 mg PO Q4H PRN #14 tab.dis 05/07/17 [Rx] Insulin Glarg,Human.Rec.Analog [LantUS Solostar] 32 units SUBCUT BID 08/06/17 [ History] Pantoprazole [ProTONIX] 40 mg PO BIDAC 08/06/17 [History] Estrogens, Conjugated [Premarin] 2 gram VAG PRN 02/04/18 [History] Insulin Aspart [NovoLOG] 16 unit SUBCUT TID 02/04/18 [History] Diphenhyd/Lidocaine/Nystatin [Magic Mouthwash] 30 ml PO Q6H PRN MDD Mouth/ Throat pain 07/20/18 [History] Loperamide [Imodium] 2 mg PO Q6H PRN MDD loose stool 07/20/18 [History] Loratadine 10 mg PO ASDIRECTED 01/22/19 [History] Vancomycin [First-Vancomycin 25 Compounding Kit] 125 mg PO QID #1 bottle [Rx] Oxygen Therapy Mode: Room Air Patient Handouts: Dehydration, Adult, [id number], Vancomycin oral solution Referrals: [facility] [Outside] Boyd Knutson MD [Ordering Only Provider] - 02/03/19 9:00 am - Discharge Summary/Plan Comment DC Time >30 min.: No Discharge Summary/Plan Comment: Admitting Diagnoses: Dehydration Abdominal pain Gastroenteritis Discharge Diagnoses: Cdiff colitis Campylobacter other PMH Metastatic colon cancer with mets to liver Leanne was admitted and treated with IVFs for dehydration. She was kept with CL diet due to nausea and abdominal pain. Stool studies obtained which revealed positive Cdiff and campylobacter. She was started on Levaquin for Campylobacter x 3 days. She was also started on Vancomycin 125 mg PO QID for C diff. She steadily improved and is ready for discharge today. She is no longer nauseated and is eager to go home. She finished Levaquin course for Campylobacter and UTI. She will be continued on 8 more days of Vancomycin PO. She is to return to ED or clinic if concerns should arise. - General Info Date of Service: 01/27/19 Admission Dx/Problem (Free Text: Admission Diagnosis/Problem Admission Diagnosis/Problem Dehydration Subjective Update: Doing well this morning, no other concerns. No further nausea or abdominal pain. Functional Status: Reports: Pain Controlled, Tolerating Diet, Ambulating, Urinating - Review of Systems General: Reports: No Symptoms. Denies: Fever, Weakness, Fatigue Pulmonary: Reports: No Symptoms. Denies: Shortness of Breath Cardiovascular: Reports: No Symptoms. Denies: Chest Pain Gastrointestinal: Reports: No Symptoms. Denies: Abdominal Pain, Nausea, Vomiting Genitourinary: Reports: No Symptoms. Denies: Dysuria, Frequency, Burning Musculoskeletal: Reports: No Symptoms Skin: Reports: No Symptoms Neurological: Reports: No Symptoms. Denies: Confusion Psychiatric: Reports: No Symptoms. Denies: Confusion - Patient Data Vitals - Most Recent: Last Vital Signs Temp 97.6 F 01/27/19 08:00 Pulse 56 L 01/27/19 08:00 Resp 16 01/27/19 08:00 BP 138/76 01/27/19 08:00 Pulse Ox 96 01/27/19 08:00 Weight - Most Recent: 70.902 kg I&O - Last 24 hours: Intake & Output 01/26/19 01/27/19 01/27/19 22:59 06:59 14:59 Intake Total 3525 1000 Output Total 1500 Balance 2024 1000 Lab Results - Last 24 hrs: Laboratory Results - last 24 hr 01/26/19 01/26/19 01/26/19 Range/Units 12:03 16:29 22:33 Sodium (136-145) mmol/L Potassium (3.5-5.1) mmol/L Chloride (98-107) mmol/L Carbon Dioxide (21.0-32.0) mmol/L BUN (7.0-18.0) mg/dL Creatinine (0.6-1.0) mg/dL Est Cr Clr Drug Dosing mL/min Estimated GFR (MDRD) ml/min Glucose (74-106) mg/dL POC Glucose 285 H 237 H 244 H (60-110) mg/dL Calcium (8.5-10.1) mg/dL Magnesium (1.8-2.4) mg/dL 01/27/19 01/27/19 Range/Units 05:26 06:32 Sodium 139 (136-145) mmol/L Potassium 3.4 L (3.5-5.1) mmol/L Chloride 106 (98-107) mmol/L Carbon Dioxide 23.3 (21.0-32.0) mmol/L BUN 3 L (7.0-18.0) mg/dL Creatinine 0.7 (0.6-1.0) mg/dL Est Cr Clr Drug Dosing 70.13 mL/min Estimated GFR (MDRD) > 60.0 ml/min Glucose 173 H (74-106) mg/dL POC Glucose 176 H (60-110) mg/dL Calcium 8.2 L (8.5-10.1) mg/dL Magnesium 1.9 (1.8-2.4) mg/dL [place] Results - Last 24 hrs: Microbiology 01/24/19 09:33 Aerobic Blood Culture - Preliminary Blood NO GROWTH AFTER 3 DAYS Anaerobic Blood Culture - Preliminary NO GROWTH AFTER 3 DAYS Med Orders - Current: Current Medications Acetaminophen (Tylenol) 650 mg PO Q4H PRN PRN Reason: Pain (Mild 1-3)/fever Diltiazem HCl (Cardizem Cd) 360 mg PO BEDTIME [facility] Last Admin: 01/26/19 22:37 Dose: 360 mg Diphenhydramine/Nystatin/Lidocaine (Magic Mouthwash) 30 ml PO Q6H PRN PRN Reason: Other Hydromorphone HCl (Dilaudid) 4 mg PO Q4H PRN PRN Reason: moderate pain Last Admin: 01/27/19 05:36 Dose: 4 mg Levofloxacin/Dextrose 750 mg/ (Premix) 150 mls @ 100 mls/hr IV Q24H [facility] Last Admin: 01/26/19 22:38 Dose: 100 mls/hr Potassium Chloride/Sodium Chloride (Normal Saline With 20 Meq Kcl) 1,000 mls @ 125 mls/hr IV ASDIRECTED [facility] Last Admin: 01/27/19 05:21 Dose: 125 mls/hr Insulin Aspart (Novolog) 0 unit SUBCUT QIDACANDBED [facility]; Protocol Last Admin: 01/27/19 08:03 Dose: 2 units Lorazepam (Ativan) 1 mg PO Q6H PRN PRN Reason: Anxiety Last Admin: 01/26/19 22:35 Dose: 1 mg Ondansetron HCl (Zofran) 4 mg IVPUSH Q4H PRN PRN Reason: Nausea Last Admin: 01/27/19 04:20 Dose: 4 mg Pantoprazole Sodium (Protonix) 40 mg PO BIDAC [facility] Last Admin: 01/27/19 06:37 Dose: 40 mg Vancomycin HCl (First-Vancomycin 25 Compounding Kit) 125 mg PO QID [facility] Last Admin: 01/27/19 05:20 Dose: 5 ml Discontinued Medications Clonidine HCl (Catapres) 0.1 mg PO ONETIME ONE Stop: 01/26/19 23:16 Last Admin: 01/26/19 23:39 Dose: 0.1 mg Sodium Chloride (Normal Saline) 1,000 mls @ 999 mls/hr IV STAT ONE Stop: 01/23/19 15:00 Last Admin: 01/23/19 14:09 Dose: 999 mls/hr Ceftriaxone Sodium/Dextrose 1 (gm/ Premix) 50 mls @ 100 mls/hr IV ONETIME ONE Stop: 01/23/19 15:21 Last Admin: 01/23/19 14:56 Dose: 100 mls/hr Sodium Chloride (Normal Saline) 1,000 mls @ 125 mls/hr IV ASDIRECTED [facility] Last Admin: 01/24/19 00:36 Dose: 125 mls/hr Ceftriaxone Sodium/Dextrose 1 (gm/ Premix) 50 mls @ 100 mls/hr IV Q24H [facility] Last Admin: 01/24/19 09:35 Dose: Not Given Azithromycin 500 mg/ Sodium (Chloride) 250 mls @ 250 mls/hr IV Q24H [facility] Last Admin: 01/23/19 18:46 Dose: 250 mls/hr Vancomycin HCl 1,750 gm/ (Sodium Chloride) 500 mls @ 333.333 mls/hr IV NOW ONE Stop: 01/24/19 04:29 Last Admin: 01/24/19 02:59 Dose: 333.333 mls/hr Vancomycin HCl 1 gm/ Sodium (Chloride) 250 mls @ 166 mls/hr IV Q12H [facility] Stop: 01/25/19 18:00 Last Admin: 01/25/19 15:44 Dose: 166 mls/hr Azithromycin 500 mg/ Sodium (Chloride) 250 mls @ 250 mls/hr IV Q24H [facility] Potassium Chloride 40 meq/ (Sodium Chloride) 500 mls @ 125 mls/hr IV ONETIME ONE Stop: 01/24/19 12:29 Last Admin: 01/24/19 10:45 Dose: 125 mls/hr Magnesium Sulfate 2 gm/ Premix 50 mls @ 50 mls/hr IV ONETIME ONE Stop: 01/24/19 09:59 Last Admin: 01/24/19 09:24 Dose: 50 mls/hr Sodium Chloride (Normal Saline) 1,000 mls @ 125 mls/hr IV ASDIRECTED [facility] Last Admin: 01/24/19 23:34 Dose: 125 mls/hr Vancomycin HCl 1 gm/ Sodium (Chloride) 250 mls @ 166 mls/hr IV Q8H [facility] Last Admin: 01/26/19 06:50 Dose: 166 mls/hr Magnesium Sulfate 4 gm/ Premix 100 mls @ 50 mls/hr IV ONETIME ONE Stop: 01/26/19 14:55 Last Admin: 01/26/19 13:15 Dose: 50 mls/hr Insulin Aspart (Novolog) 0 unit SUBCUT ACBREAKFASTANDBED [facility]; Protocol Ondansetron HCl (Zofran) 4 mg IVPUSH Q6H [facility] Last Admin: 01/25/19 08:40 Dose: 4 mg Vancomycin HCl (Pharmacy To Dose - Vancomycin) 1 dose .XX ASDIRECTED [facility] - Exam General: Reports: Alert, Oriented, Cooperative Lungs: Reports: Clear to Auscultation, Normal Respiratory Effort Cardiovascular: Reports: Regular Rate, Regular Rhythm GI/Abdominal Exam: Normal Bowel Sounds, Soft, Non-Tender Back Exam: Reports: Normal Inspection Neurological: Reports: No New Focal Deficit Psy/Mental Status: Reports: Alert, Normal Affect, Normal Mood *Q Meaningful Use (DIS) - VTE *Q VTE Pharmacological Contraindications *Q: Risk of Bleeding
== END 2019-01-27 11:45 | disposition home or self-care (01) | DRG 372 ==
LOC: MW.ED 13:34 → MW.MS 15:31 → OBSVTOIN 01-24 12:24
PROVIDERS: ADMIT Internal Medicine; ATTEND Internal Medicine
DX: A04.72 Enterocolitis due to Clostridium difficile, not specified as recurrent (principal); N39.0 Urinary tract infection, site not specified; C18.9 Malignant neoplasm of colon, unspecified; C78.7 Secondary malignant neoplasm of liver and intrahepatic bile duct; A04.5 Campylobacter enteritis; E86.0 Dehydration; H54.7 Unspecified visual loss; E78.00 Pure hypercholesterolemia, unspecified; I10 Essential (primary) hypertension; K21.9 Gastro-esophageal reflux disease without esophagitis; F41.9 Anxiety disorder, unspecified; D69.6 Thrombocytopenia, unspecified; T36.3X5A Adverse effect of macrolides, initial encounter; F32.9 Major depressive disorder, single episode, unspecified; E11.9 Type 2 diabetes mellitus without complications; Z90.49 Acquired absence of other specified parts of digestive tract; Z90.710 Acquired absence of both cervix and uterus; Z92.21 Personal history of antineoplastic chemotherapy; Z88.5 Allergy status to narcotic agent; Z88.8 Allergy status to other drugs, medicaments and biological substances; Z79.4 Long term (current) use of insulin; Z79.899 Other long term (current) drug therapy
CPT/HCPCS: 36415; 80048; 80053; 80202; 81001; 82962; 83630; 83735; 85025; 87040; 87046; 87324; 87328; 87329; 87338; 87899; 93005; 96361; 96365; 96366; 96367; 96375; 96376; 99284; 99284-25; A9270-GY; G0378; J0456; J0696; J1642; J1815-GY; J1956; J2405; J3370; J3475; J3480; J7040; J7050

== ENCOUNTER 2019-03-01 16:10 | Observation (INO) | payer OTHER ==
[2019-03-01] MEDS ORDERED: Sodium Chloride 0.9% 2.5 ML Syringe FLUSH PRN (16:17)
[2019-03-01] MEDS ORDERED: Sodium Chloride 0.9% 10 ML Syringe FLUSH PRN (16:17)
--- NOTE | 2019-03-01 16:28 | EDM.PDOC ---
ED HPI GENERAL MEDICAL PROBLEM - General Chief Complaint: Cardiovascular Problem Stated Complaint: ABD PAIN/NAUSEA Time Seen by Provider: 03/01/19 16:11 Source of Information: Reports: Patient History Limitations: Reports: No Limitations - History of Present Illness INITIAL COMMENTS - FREE TEXT/NARRATIVE: HISTORY AND PHYSICAL: History of present illness: Patient is a 58-year-old female who presents to the emergency room with complaints of palpitations, chest pain, abdominal pain and generally feeling unwell. She was in oncology/infusion center receiving Leucovorin when chcf through her administration she started to develop nausea, and abdominal pain and shortness of breath. The oncology staff administered Decadron, Benadryl, Pepcid, Vistaril and Reglan. Patient states she is concerned as she has an allergy to Benadryl. Shortly after she started to develop chest pain, flushed feeling, and palpitations. An EKG was done which appeared to show atrial fibrillation. Patient has no previous history of A. fib. They encouraged her to come down to the emergency room for evaluation. Patient reports that prior to presenting to oncology she had felt well. Patient denies any fever, chills, change in vision, syncope or near syncope. Denies any back pain or cough. Denies any vomiting, diarrhea, constipation or dysuria. Has not noted any blood in urine or stool. Patient has been eating and drinking appropriately. Past medical history of metastatic colon cancer into the liver, hypertension, elevated cholesterol, type 2 diabetes Review of systems: As per history of present illness and below otherwise all systems reviewed and negative. Past medical history: As per history of present illness and as reviewed below otherwise noncontributory. Surgical history: As per history of present illness and as reviewed below otherwise noncontributory. Social history: See social history for further information Family history: As per history of present illness and as reviewed below otherwise noncontributory. Physical exam: General: Well-developed and well-nourished 58-year-old female. Alert and oriented. Nontoxic appearing and in no acute distress. HEENT: Atraumatic, normocephalic, pupils equal and reactive bilaterally, negative for conjunctival pallor or scleral icterus, mucous membranes moist, trachea midline. No drooling or trismus noted. No meningeal signs. No hot potato voice noted. Lungs: Clear to auscultation, breath sounds equal bilaterally, chest nontender. Heart: S1S2, regular rate and rhythm without overt murmur Abdomen: Soft, nondistended, diffuse nonspecific tenderness throughout. Negative for masses. Negative for costovertebral tenderness. Pelvis: Stable nontender. Skin: Intact, warm, dry. No lesions or rashes noted. Extremities: Atraumatic, moves all extremities per self without difficulty or deficits, negative for cords or calf pain. Neurovascular unremarkable. Neuro: Awake, alert, oriented. Cranial nerves II through XII unremarkable. Cerebellum unremarkable. Motor and sensory unremarkable throughout. Exam nonfocal. Notes: Patient had a CT of the chest, abdomen and pelvis on 02/02/2019: Stable pulmonary nodules. Grossly stable hepatic nodules. Mildly decreasing soft tissue along the left aspect of the bladder extending into the adjacent colon. Grossly stable mesenteric nodularity. Hepatic, splenic and pulmonary granulomata. EKG today shows sinus tachycardia with a right bundle branch block. EKG that was done on 01/23/19 showed normal sinus rhythm. Diagnostics: CBC, CMP, UA, EKG, one view chest, troponin Therapeutics: IV fluid at 125 Impression: Metastatic colon cancer Elevated transaminases Chest pain, r/o IL Hypertension Plan: Observation admission to Med/Surg Definitive disposition and diagnosis as appropriate pending reevaluation and review of above. abdomen, chest Pain Score (Numeric/FACES): 7 - Related Data Allergies Allergy/AdvReac Type Severity Reaction Status Date / Time hydrocodone Allergy Unknown Hives Verified 03/01/19 16:28 ibuprofen Allergy Unknown Hives Verified 03/01/19 16:28 morphine Allergy Unknown Seizure Verified 03/01/19 16:28 nitroglycerin Allergy Unknown Difficulty Verified 03/01/19 16:28 Breathing caffeine Allergy Vomiting Verified 03/01/19 16:28 diphenhydramine HCl Allergy Excitabilit Verified 03/01/19 16:28 [From Benadryl] y Home Meds: Home Meds metFORMIN [Glucophage] 1,000 mg PO BIDMEALS 05/09/14 [History] HYDROmorphone [Dilaudid] 4 mg PO Q4H PRN 10/27/15 [History] LORazepam [Ativan] 1 mg PO BEDTIME PRN 12/26/15 [History] Insulin Glarg,Human.Rec.Analog [LantUS Solostar] 34 units SUBCUT BID 08/06/17 [ History] Pantoprazole [ProTONIX] 40 mg PO DAILY 08/06/17 [History] Insulin Aspart [NovoLOG] 16 unit SUBCUT TIDAC 02/04/18 [History] Loperamide [Imodium] 2 mg PO Q4H PRN MDD loose stool 07/20/18 [History] Calcium Carbonate [Calcium] 1,250 mg PO DAILY 03/01/19 [History] Diltiazem HCl [Tiazac] 360 mg PO DAILY 03/01/19 [History] Diphenhyd/Lidocaine/Nystatin [Magic Mouthwash] 5 ml PO Q4H PRN 03/01/19 [History ] Estrogens, Conjugated [Premarin Vaginal Crm] 0.5 gram VAG BEDTIME 03/01/19 [ History] Furosemide 40 mg PO DAILY 03/01/19 [History] Loratadine [Claritin] 10 mg PO DAILY PRN 03/01/19 [History] Ondansetron [Zofran ODT] 4 mg PO TID PRN 03/01/19 [History] Potassium Chloride 20 meq PO BID 03/01/19 [History] Valsartan 160 mg PO DAILY 03/01/19 [History] Vitamin B6-pyridOXINE 100 mg PO TID 03/01/19 [History] atorvaSTATin Calcium [Lipitor] 40 mg PO DAILY 03/01/19 [History] hydroCHLOROthiazide [Hydrochlorothiazide] 25 mg PO DAILY 03/01/19 [History] Past Medical History HEENT History: Reports: Impaired Vision Other HEENT History: wears glasses Cardiovascular History: Reports: High Cholesterol, Hypertension Respiratory History: Reports: None Gastrointestinal History: Reports: GERD Other Gastrointestinal History: hernia, colon CA Genitourinary History: Reports: UTI, Recurrent YARD ATTENDANT History: Reports: , Other (See Below) Other YARD ATTENDANT History: x2 Musculoskeletal History: Reports: None Neurological History: Reports: None Psychiatric History: Reports: Anxiety, Depression Endocrine/Metabolic History: Reports: Diabetes, Type II Hematologic History: Reports: None Immunologic History: Reports: None Oncologic (Cancer) History: Reports: Colon, Liver, Metastatic Dermatologic History: Reports: None - Infectious Disease History Infectious Disease History: Reports: C-Difficile - Past Surgical History HEENT Surgical History: Reports: Adenoidectomy, Tonsillectomy GI Surgical History: Reports: Cholecystectomy, Colon, Hernia Repair/Other Other GI Surgeries/Procedures: colectomy x2 Female Surgical History: Reports: Section, Hysterectomy, Salpingo- Oophorectomy Other Female Surgeries/Procedures: X2 Endocrine Surgical History: Reports: None Musculoskeletal Surgical History: Reports: None, Other (See Below) Other Musculoskeletal Surgeries/Procedures:: rigth knee pain Oncologic Surgical History: Reports: Other (See Below) Other Oncologic Surgeries/Procedures: presently on chemo treatment last done on 01/20/19 Dermatological Surgical History: Reports: None Social & Family History - Family History Family Medical History: Noncontributory GI: Reports: None - Caffeine Use Caffeine Use: Reports: None Caffeine Use Comment: allergic to caffeine ED ROS GENERAL - Review of Systems Review Of Systems: ROS reveals no pertinent complaints other than HPI. ED EXAM, GENERAL - Physical Exam Exam: See Below (See dictation) Course - Vital Signs Last Recorded V/S: Last Vital Signs Temp 96.4 F 03/01/19 16:16 Pulse 91 03/01/19 16:16 Resp 19 03/01/19 16:16 BP 178/105 H 03/01/19 16:16 Pulse Ox 95 03/01/19 16:16 - Orders/Labs/Meds Orders: Active Orders 24 hr Category Date Time Status Admission Status [Patient Status] [ADT] Stat ADT 03/01/19 17:21 Active EKG Documentation Completion [RC] STAT Care 03/01/19 16:14 Active Sodium Chloride 0.9% [Normal Saline] 1,000 ml Med 03/01/19 16:30 Active IV ASDIRECTED Sodium Chloride 0.9% [Saline Flush] Med 03/01/19 16:17 Active 10 ml FLUSH ASDIRECTED PRN Sodium Chloride 0.9% [Saline Flush] Med 03/01/19 16:17 Active 2.5 ml FLUSH ASDIRECTED PRN Saline Lock Insert [OM.PC] Stat Oth 03/01/19 16:17 Ordered Medication Orders Sodium Chloride (Normal Saline) 1,000 mls @ 125 mls/hr IV ASDIRECTED MARIA T Last Admin: 03/01/19 16:27 Dose: 125 mls/hr Sodium Chloride (Saline Flush) 10 ml FLUSH ASDIRECTED PRN PRN Reason: Keep Vein Open Sodium Chloride (Saline Flush) 2.5 ml FLUSH ASDIRECTED PRN PRN Reason: Keep Vein Open Labs: Laboratory Tests 03/01/19 03/01/19 03/01/19 Range/Units 16:20 16:20 16:20 WBC 6.39 (4.0-11.0) K/uL RBC 4.39 (4.30-5.90) M/uL Hgb 14.0 (12.0-16.0) g/dL Hct 39.9 (36.0-46.0) % MCV 90.9 (80.0-98.0) fL MCH 31.9 (27.0-32.0) pg MCHC 35.1 (31.0-37.0) g/dL RDW Std Deviation 53.3 (28.0-62.0) fl RDW Coeff of Ej 16 H (11.0-15.0) % Plt Count 116 L (150-400) K/uL MPV 9.60 (7.40-12.00) fL Neut % (Auto) 89.2 H (48.0-80.0) % Lymph % (Auto) 5.6 L (16.0-40.0) % Ware % (Auto) 5.2 (0.0-15.0) % Eos % (Auto) 0.0 (0.0-7.0) % Baso % (Auto) 0.0 (0.0-1.5) % Neut # (Auto) 5.7 (1.4-5.7) K/uL Lymph # (Auto) 0.4 L (0.6-2.4) K/uL Ware # (Auto) 0.3 (0.0-0.8) K/uL Eos # (Auto) 0.0 (0.0-0.7) K/uL Baso # (Auto) 0.0 (0.0-0.1) K/uL Nucleated RBC % 0.0 /100WBC Nucleated RBCs # 0 K/uL Sodium 136 (136-145) mmol/L Potassium 3.4 L (3.5-5.1) mmol/L Chloride 98 (98-107) mmol/L Carbon Dioxide 24.2 (21.0-32.0) mmol/L BUN 10 (7.0-18.0) mg/dL Creatinine 0.8 (0.6-1.0) mg/dL Est Cr Clr Drug Dosing 61.36 mL/min Estimated GFR (MDRD) > 60.0 ml/min Glucose 384 H (74-106) mg/dL Calcium 9.0 (8.5-10.1) mg/dL Magnesium (1.8-2.4) mg/dL Total Bilirubin 1.2 H (0.2-1.0) mg/dL AST 77 H (15-37) IU/L ALT 67 H (14-63) IU/L Alkaline Phosphatase 324 H (46-116) U/L Troponin I < 0.050 (0.000-0.056) ng/mL Total Protein 7.6 (6.4-8.2) g/dL Albumin 3.8 (3.4-5.0) g/dL Globulin 3.8 (2.6-4.0) g/dL Albumin/Globulin Ratio 1.0 (0.9-1.6) TSH 3rd Generation 1.16 (0.36-3.74) uIU/mL Urine Color Urine Appearance Urine pH (5.0-8.0) Ur Specific Cardale (1.001-1.035) Urine Protein (NEGATIVE) mg/dL Urine Glucose (UA) (NEGATIVE) mg/dL Urine Ketones (NEGATIVE) mg/dL Urine Occult Blood (NEGATIVE) Urine Nitrite (NEGATIVE) Urine Bilirubin (NEGATIVE) Urine Urobilinogen (<2.0) EU/dL Ur Leukocyte Esterase (NEGATIVE) Urine RBC (0-2/HPF) Urine WBC (0-5/HPF) Ur Epithelial Cells (NONE-FEW) Urine Bacteria (NEGATIVE) 03/01/19 03/01/19 Range/Units 16:20 16:57 WBC (4.0-11.0) K/uL RBC (4.30-5.90) M/uL Hgb (12.0-16.0) g/dL Hct (36.0-46.0) % MCV (80.0-98.0) fL MCH (27.0-32.0) pg MCHC (31.0-37.0) g/dL RDW Std Deviation (28.0-62.0) fl RDW Coeff of Ej (11.0-15.0) % Plt Count (150-400) K/uL MPV (7.40-12.00) fL Neut % (Auto) (48.0-80.0) % Lymph % (Auto) (16.0-40.0) % Ware % (Auto) (0.0-15.0) % Eos % (Auto) (0.0-7.0) % Baso % (Auto) (0.0-1.5) % Neut # (Auto) (1.4-5.7) K/uL Lymph # (Auto) (0.6-2.4) K/uL Ware # (Auto) (0.0-0.8) K/uL Eos # (Auto) (0.0-0.7) K/uL Baso # (Auto) (0.0-0.1) K/uL Nucleated RBC % /100WBC Nucleated RBCs # K/uL Sodium (136-145) mmol/L Potassium (3.5-5.1) mmol/L Chloride (98-107) mmol/L Carbon Dioxide (21.0-32.0) mmol/L BUN (7.0-18.0) mg/dL Creatinine (0.6-1.0) mg/dL Est Cr Clr Drug Dosing mL/min Estimated GFR (MDRD) ml/min Glucose (74-106) mg/dL Calcium (8.5-10.1) mg/dL Magnesium 1.6 L (1.8-2.4) mg/dL Total Bilirubin (0.2-1.0) mg/dL AST (15-37) IU/L ALT (14-63) IU/L Alkaline Phosphatase (46-116) U/L Troponin I (0.000-0.056) ng/mL Total Protein (6.4-8.2) g/dL Albumin (3.4-5.0) g/dL Globulin (2.6-4.0) g/dL Albumin/Globulin Ratio (0.9-1.6) TSH 3rd Generation (0.36-3.74) uIU/mL Urine Color YELLOW Urine Appearance CLEAR Urine pH 7.0 (5.0-8.0) Ur Specific Cardale 1.015 (1.001-1.035) Urine Protein 100 H (NEGATIVE) mg/dL Urine Glucose (UA) >=1000 (NEGATIVE) mg/dL Urine Ketones 15 H (NEGATIVE) mg/dL Urine Occult Blood NEGATIVE (NEGATIVE) Urine Nitrite NEGATIVE (NEGATIVE) Urine Bilirubin NEGATIVE (NEGATIVE) Urine Urobilinogen 0.2 (<2.0) EU/dL Ur Leukocyte Esterase NEGATIVE (NEGATIVE) Urine RBC 0-1 (0-2/HPF) Urine WBC 0-2 (0-5/HPF) Ur Epithelial Cells RARE (NONE-FEW) Urine Bacteria RARE (NEGATIVE) Meds: Medications Generic Name Dose Route Start Last Admin Trade Name Freq PRN Reason Stop Dose Admin Sodium Chloride 1,000 mls @ 125 mls/hr 03/01/19 16:30 03/01/19 16:27 Normal Saline IV 125 mls/hr ASDIRECTED MARIA T Administration Sodium Chloride 10 ml 03/01/19 16:17 Saline Flush FLUSH ASDIRECTED PRN Keep Vein Open Sodium Chloride 2.5 ml 03/01/19 16:17 Saline Flush FLUSH ASDIRECTED PRN Keep Vein Open Departure - Departure Time of Disposition: 17:43 Disposition: Refer to Observation Clinical Impression: Metastatic colon cancer in female, Elevated transaminase level Hypertension Qualifiers: Hypertension type: unspecified Qualified Code(s): I10 - Essential (primary) hypertension Referrals: Boyd Knutson MD [Primary Care Provider] - Forms: ED Department Discharge - My Orders Last 24 Hours: My Active Orders 03/01/19 16:14 EKG Documentation Completion [RC] STAT 03/01/19 16:17 Sodium Chloride 0.9% [Saline Flush] 10 ml FLUSH ASDIRECTED PRN Sodium Chloride 0.9% [Saline Flush] 2.5 ml FLUSH ASDIRECTED PRN Saline Lock Insert [OM.PC] Stat 03/01/19 16:30 Sodium Chloride 0.9% [Normal Saline] 1,000 ml IV ASDIRECTED 03/01/19 17:21 Admission Status [Patient Status] [ADT] Stat - Assessment/Plan Last 24 Hours: My Active Orders 03/01/19 16:14 EKG Documentation Completion [RC] STAT 03/01/19 16:17 Sodium Chloride 0.9% [Saline Flush] 10 ml FLUSH ASDIRECTED PRN Sodium Chloride 0.9% [Saline Flush] 2.5 ml FLUSH ASDIRECTED PRN Saline Lock Insert [OM.PC] Stat 03/01/19 16:30 Sodium Chloride 0.9% [Normal Saline] 1,000 ml IV ASDIRECTED 03/01/19 17:21 Admission Status [Patient Status] [ADT] Stat
[2019-03-01] MEDS ORDERED: Sodium Chloride 0.9% 1,000 ML IV SCH (16:30)
[2019-03-01 16:58] LABS: CHLORIDE,CL 98 mmol/L (98-107); SODIUM,NA 136 mmol/L (136-145)
--- NOTE | 2019-03-01 17:01 | CR ---
HISTORY: Palpitations. TECHNIQUE: Portable frontal view the chest. COMPARISON: Chest x-ray 01/22/2019. FINDINGS: Left-sided port with catheter terminating near the cavoatrial junction, unchanged. No airspace consolidation. No pleural effusion or pneumothorax. Pulmonary vasculature and cardiomediastinal silhouette are within normal limits. Right paratracheal soft tissue density at the thoracic inlet is less conspicuous on today`s study possibly due to positioning. IMPRESSION: No acute cardiopulmonary abnormality. Dictated by King Zendejas MD @ Mar 01 2019 4:58PM Signed by Dr. King Zendejas @ Mar 01 2019 5:00PM
[2019-03-01] MEDS ORDERED: Magnesium Sulfate/Water 2 GM in Premix Bag 1 BAG IV ONE (17:52)
[2019-03-01] MEDS ORDERED: Sodium Chloride 0.9% with KCl 1,000 ML IV SCH (18:00)
[2019-03-01] MEDS ORDERED: Ondansetron 4 MG/2 ML SDV IVPUSH ONE (18:10)
[2019-03-01] MEDS ORDERED: Loratadine 10 MG Tab PO PRN (18:19)
[2019-03-01] MEDS ORDERED: LORazepam 1 MG Tab PO PRN (18:19)
[2019-03-01] MEDS ORDERED: Diphenhydramine/Lidocaine/Nystatin Suspension 237 ML Bottle PO PRN (18:19)
--- NOTE | 2019-03-01 18:19 | PCM.HP ---
H&P History of Present Illness - General Date of Service: 03/01/19 Admit Problem/Dx: Admission Diagnosis/Problem Admission Diagnosis/Problem Chest pain, rule out acute myocardial infarction Source of Information: Patient History Limitations: Reports: No Limitations - History of Present Illness Initial Comments - Free Text/Narative: 58F hx of metastatic colon cancer to the liver, HTN, CAD presented to the ER complaining of palpitations, nausea, vomiting that began today. She denies chest pain. This began while at her infusion center appointment. She did not receive the chemotherapy agent today. This symptom of palpitations is new to her. EKG findings show a type 2 second degree heart block. She is awake, alert, and oriented. She declines transfer to a facility at this time and would prefer observation. abdomen, chest Pain Score (Numeric/FACES): 7 - Related Data Allergies/Adverse Reactions: Allergies Allergy/AdvReac Type Severity Reaction Status Date / Time hydrocodone Allergy Unknown Hives Verified 03/01/19 16:28 ibuprofen Allergy Unknown Hives Verified 03/01/19 16:28 morphine Allergy Unknown Seizure Verified 03/01/19 16:28 nitroglycerin Allergy Unknown Difficulty Verified 03/01/19 16:28 Breathing caffeine Allergy Vomiting Verified 03/01/19 16:28 diphenhydramine HCl Allergy Excitabilit Verified 03/01/19 16:28 [From Benadryl] y Home Medications: Home Meds metFORMIN [Glucophage] 1,000 mg PO BIDMEALS 05/09/14 [History] HYDROmorphone [Dilaudid] 4 mg PO Q4H PRN 10/27/15 [History] LORazepam [Ativan] 1 mg PO BEDTIME PRN 12/26/15 [History] Insulin Glarg,Human.Rec.Analog [LantUS Solostar] 34 units SUBCUT BID 08/06/17 [ History] Pantoprazole [ProTONIX] 40 mg PO DAILY 08/06/17 [History] Insulin Aspart [NovoLOG] 16 unit SUBCUT TIDAC 02/04/18 [History] Loperamide [Imodium] 2 mg PO Q4H PRN MDD loose stool 07/20/18 [History] Calcium Carbonate [Calcium] 1,250 mg PO DAILY 03/01/19 [History] Diltiazem HCl [Tiazac] 360 mg PO DAILY 03/01/19 [History] Diphenhyd/Lidocaine/Nystatin [Magic Mouthwash] 5 ml PO Q4H PRN 03/01/19 [History ] Estrogens, Conjugated [Premarin Vaginal Crm] 0.5 gram VAG BEDTIME 03/01/19 [ History] Furosemide 40 mg PO DAILY 03/01/19 [History] Loratadine [Claritin] 10 mg PO DAILY PRN 03/01/19 [History] Ondansetron [Zofran ODT] 4 mg PO TID PRN 03/01/19 [History] Potassium Chloride 20 meq PO BID 03/01/19 [History] Valsartan 160 mg PO DAILY 03/01/19 [History] Vitamin B6-pyridOXINE 100 mg PO TID 03/01/19 [History] atorvaSTATin Calcium [Lipitor] 40 mg PO DAILY 03/01/19 [History] hydroCHLOROthiazide [Hydrochlorothiazide] 25 mg PO DAILY 03/01/19 [History] Past Medical History HEENT History: Reports: Impaired Vision Other HEENT History: wears glasses Cardiovascular History: Reports: High Cholesterol, Hypertension Respiratory History: Reports: None Gastrointestinal History: Reports: GERD Other Gastrointestinal History: hernia, colon CA Genitourinary History: Reports: UTI, Recurrent [employer] History: Reports: , Other (See Below) Other OB/BYN History: x2 Musculoskeletal History: Reports: None Neurological History: Reports: None Psychiatric History: Reports: Anxiety, Depression Endocrine/Metabolic History: Reports: Diabetes, Type II Hematologic History: Reports: None Immunologic History: Reports: None Oncologic (Cancer) History: Reports: Colon, Liver, Metastatic Dermatologic History: Reports: None - Infectious Disease History Infectious Disease History: Reports: C-Difficile - Past Surgical History HEENT Surgical History: Reports: Adenoidectomy, Tonsillectomy GI Surgical History: Reports: Cholecystectomy, Colon, Hernia Repair/Other Other GI Surgeries/Procedures: colectomy x2 Female Surgical History: Reports: Section, Hysterectomy, Salpingo- Oophorectomy Other Female Surgeries/Procedures: X2 Endocrine Surgical History: Reports: None Musculoskeletal Surgical History: Reports: None, Other (See Below) Other Musculoskeletal Surgeries/Procedures:: rigth knee pain Oncologic Surgical History: Reports: Other (See Below) Other Oncologic Surgeries/Procedures: presently on chemo treatment last done on 01/20/19 Dermatological Surgical History: Reports: None Social & Family History - Family History Family Medical History: Noncontributory GI: Reports: None - Tobacco Use Smoking Status *Q: Never Smoker - Caffeine Use Caffeine Use: Reports: None Caffeine Use Comment: allergic to caffeine - Recreational Drug Use Recreational Drug Use: No H&P Review of Systems - Review of Systems: Review Of Systems: ROS reveals no pertinent complaints other than HPI. Exam - Exam Exam: See Below - Vital Signs Vital Signs: Last Vital Signs Temp 35.8 C 03/01/19 16:16 Pulse 91 03/01/19 16:16 Resp 19 03/01/19 16:16 BP 178/105 H 03/01/19 16:16 Pulse Ox 95 03/01/19 16:16 Weight: 72.121 kg - Exam General: Alert, Oriented, 4 HEENT: PERRLA, Hearing Intact, Mucosa Moist & [place], Nares Patent, Normal Nasal Septum, Posterior Pharynx Clear, Conjunctiva Clear, EOMI, EACs Clear, TMs Clear Neck: Supple, Trachea Midline, 2 Lungs: Clear to Auscultation, Normal Respiratory Effort Cardiovascular: Regular Rate, Regular Rhythm GI/Abdominal Exam: Normal Bowel Sounds, Soft, Non-Tender, No Organomegaly, No Distention, No Abnormal Bruit, No Mass, Pelvis Stable Back Exam: Normal Inspection, Full Range of Motion, NT Extremities: Normal Inspection, Normal Range of Motion, Non-Tender, No Pedal Edema, Normal Capillary Refill Peripheral Pulses: 2+: Dorsalis Pedis (L), Dorsalis Pedis (R) Skin: Warm, Dry, Intact Neurological: Cranial Nerves Intact, Reflexes Equal Bilateral DTR: 2+: Achilles (L), Achilles (R) Psychiatric: Alert, Normal Affect, Normal Mood - Patient Data Lab Results Last 24 hrs: Laboratory Results - last 24 hr 03/01/19 03/01/19 03/01/19 Range/Units 16:20 16:20 16:20 WBC 6.39 (4.0-11.0) K/uL RBC 4.39 (4.30-5.90) M/uL Hgb 14.0 (12.0-16.0) g/dL Hct 39.9 (36.0-46.0) % MCV 90.9 (80.0-98.0) fL MCH 31.9 (27.0-32.0) pg MCHC 35.1 (31.0-37.0) g/dL RDW Std Deviation 53.3 (28.0-62.0) fl RDW Coeff of Ej 16 H (11.0-15.0) % Plt Count 116 L (150-400) K/uL MPV 9.60 (7.40-12.00) fL Neut % (Auto) 89.2 H (48.0-80.0) % Lymph % (Auto) 5.6 L (16.0-40.0) % [facility] % (Auto) 5.2 (0.0-15.0) % Eos % (Auto) 0.0 (0.0-7.0) % Baso % (Auto) 0.0 (0.0-1.5) % Neut # (Auto) 5.7 (1.4-5.7) K/uL Lymph # (Auto) 0.4 L (0.6-2.4) K/uL [facility] # (Auto) 0.3 (0.0-0.8) K/uL Eos # (Auto) 0.0 (0.0-0.7) K/uL Baso # (Auto) 0.0 (0.0-0.1) K/uL Nucleated RBC % 0.0 /100WBC Nucleated RBCs # 0 K/uL Sodium 136 (136-145) mmol/L Potassium 3.4 L (3.5-5.1) mmol/L Chloride 98 (98-107) mmol/L Carbon Dioxide 24.2 (21.0-32.0) mmol/L BUN 10 (7.0-18.0) mg/dL Creatinine 0.8 (0.6-1.0) mg/dL Est Cr Clr Drug Dosing 61.36 mL/min Estimated GFR (MDRD) > 60.0 ml/min Glucose 384 H (74-106) mg/dL Calcium 9.0 (8.5-10.1) mg/dL Magnesium (1.8-2.4) mg/dL Total Bilirubin 1.2 H (0.2-1.0) mg/dL AST 77 H (15-37) IU/L ALT 67 H (14-63) IU/L Alkaline Phosphatase 324 H (46-116) U/L Troponin I < 0.050 (0.000-0.056) ng/mL Total Protein 7.6 (6.4-8.2) g/dL Albumin 3.8 (3.4-5.0) g/dL Globulin 3.8 (2.6-4.0) g/dL Albumin/Globulin Ratio 1.0 (0.9-1.6) TSH 3rd Generation 1.16 (0.36-3.74) uIU/mL Urine Color Urine Appearance Urine pH (5.0-8.0) Ur Specific [place] (1.001-1.035) Urine Protein (NEGATIVE) mg/dL Urine Glucose (UA) (NEGATIVE) mg/dL Urine Ketones (NEGATIVE) mg/dL Urine Occult Blood (NEGATIVE) Urine Nitrite (NEGATIVE) Urine Bilirubin (NEGATIVE) Urine Urobilinogen (<2.0) EU/dL Ur Leukocyte Esterase (NEGATIVE) Urine RBC (0-2/HPF) Urine WBC (0-5/HPF) Ur Epithelial Cells (NONE-FEW) Urine Bacteria (NEGATIVE) 03/01/19 03/01/19 Range/Units 16:20 16:57 WBC (4.0-11.0) K/uL RBC (4.30-5.90) M/uL Hgb (12.0-16.0) g/dL Hct (36.0-46.0) % MCV (80.0-98.0) fL MCH (27.0-32.0) pg MCHC (31.0-37.0) g/dL RDW Std Deviation (28.0-62.0) fl RDW Coeff of Ej (11.0-15.0) % Plt Count (150-400) K/uL MPV (7.40-12.00) fL Neut % (Auto) (48.0-80.0) % Lymph % (Auto) (16.0-40.0) % [facility] % (Auto) (0.0-15.0) % Eos % (Auto) (0.0-7.0) % Baso % (Auto) (0.0-1.5) % Neut # (Auto) (1.4-5.7) K/uL Lymph # (Auto) (0.6-2.4) K/uL [facility] # (Auto) (0.0-0.8) K/uL Eos # (Auto) (0.0-0.7) K/uL Baso # (Auto) (0.0-0.1) K/uL Nucleated RBC % /100WBC Nucleated RBCs # K/uL Sodium (136-145) mmol/L Potassium (3.5-5.1) mmol/L Chloride (98-107) mmol/L Carbon Dioxide (21.0-32.0) mmol/L BUN (7.0-18.0) mg/dL Creatinine (0.6-1.0) mg/dL Est Cr Clr Drug Dosing mL/min Estimated GFR (MDRD) ml/min Glucose (74-106) mg/dL Calcium (8.5-10.1) mg/dL Magnesium 1.6 L (1.8-2.4) mg/dL Total Bilirubin (0.2-1.0) mg/dL AST (15-37) IU/L ALT (14-63) IU/L Alkaline Phosphatase (46-116) U/L Troponin I (0.000-0.056) ng/mL Total Protein (6.4-8.2) g/dL Albumin (3.4-5.0) g/dL Globulin (2.6-4.0) g/dL Albumin/Globulin Ratio (0.9-1.6) TSH 3rd Generation (0.36-3.74) uIU/mL Urine Color YELLOW Urine Appearance CLEAR Urine pH 7.0 (5.0-8.0) Ur Specific [place] 1.015 (1.001-1.035) Urine Protein 100 H (NEGATIVE) mg/dL Urine Glucose (UA) >=1000 (NEGATIVE) mg/dL Urine Ketones 15 H (NEGATIVE) mg/dL Urine Occult Blood NEGATIVE (NEGATIVE) Urine Nitrite NEGATIVE (NEGATIVE) Urine Bilirubin NEGATIVE (NEGATIVE) Urine Urobilinogen 0.2 (<2.0) EU/dL Ur Leukocyte Esterase NEGATIVE (NEGATIVE) Urine RBC 0-1 (0-2/HPF) Urine WBC 0-2 (0-5/HPF) Ur Epithelial Cells RARE (NONE-FEW) Urine Bacteria RARE (NEGATIVE) Result Diagrams: 03/01/19 16:20 03/01/19 16:20 Problem List Initiated/Reviewed/Updated: Yes Orders Last 24hrs: Active Orders 24 hr Category Date Time Status Admission Status [Patient Status] [ADT] Stat ADT 03/01/19 17:21 Active EKG 12 Lead [EKG Documentation Completion] [RC] STAT Care 03/01/19 17:48 Active EKG Documentation Completion [RC] STAT Care 03/01/19 16:14 Active Magnesium Sulfate/Water [Magnesium Sulfate in Water Med 03/01/19 17:52 Ordered Premix] 2 gm Premix Bag 1 bag IV ONETIME Sodium Chloride 0.9% [Normal Saline] 1,000 ml Med 03/01/19 16:30 Active IV ASDIRECTED Sodium Chloride 0.9% [Saline Flush] Med 03/01/19 16:17 Active 10 ml FLUSH ASDIRECTED PRN Sodium Chloride 0.9% [Saline Flush] Med 03/01/19 16:17 Active 2.5 ml FLUSH ASDIRECTED PRN Sodium Chloride 0.9% with KCl [Normal Saline with 40 Med 03/01/19 18:00 Ordered mEq KCl] 1,000 ml IV ASDIRECTED Saline Lock Insert [OM.PC] Stat Oth 03/01/19 16:17 Ordered Medication Orders Sodium Chloride (Normal Saline) 1,000 mls @ 125 mls/hr IV ASDIRECTED MARIA T Last Admin: 03/01/19 16:27 Dose: 125 mls/hr Magnesium Sulfate 2 gm/ Premix 50 mls @ 25 mls/hr IV ONETIME ONE Stop: 03/01/19 19:51 Potassium Chloride/Sodium Chloride (Normal Saline With 40 Meq Kcl) 1,000 mls @ 150 mls/hr IV ASDIRECTED MARIA T Sodium Chloride (Saline Flush) 10 ml FLUSH ASDIRECTED PRN PRN Reason: Keep Vein Open Sodium Chloride (Saline Flush) 2.5 ml FLUSH ASDIRECTED PRN PRN Reason: Keep Vein Open Assessment/Plan Comment:: Assessment: #1. Type 2 second degree heart block #2. Dehydration #3. Hypokalemia #4. Hypomagnesemia #5. History of HTN, metastatic colon cancer Plan: #1. Refer to observation. Cardiac tele. Pacers at the bedside. If the patient becomes symptomatic/bradycardic, the provider needs to be notified. Diabetic diet #2. Zofran 4mg IV q4h PRN #3. Restart home meds, holding meds that would decrease HR. #4. ISS, lantus half her home dose #5. IVNS + 20meq KCl at 150ml/h #6. CBC, BMP tomorrow AM
[2019-03-01] MEDS ORDERED: Ondansetron 4 MG/2 ML SDV IVPUSH PRN (18:22)
[2019-03-01] MEDS: NS + KCl 20mEq/L 1,000 ML IV SCH (19:57)
[2019-03-01] MEDS ORDERED: Insulin Regular, Human 100 Units/ML 10 ML Vial SUBCUT STA ×2 (20:45→22:43)
[2019-03-01] MEDS: Insulin Glargine,Human Rec. Analog 100 Units/ML 3 ML Pen SUBCUT SCH (21:02)
[2019-03-01] MEDS: VITAMIN B6 PYRIDOXINE 100 MG PO SCH (21:04)
[2019-03-02] MEDS: NS + KCl 20mEq/L 1,000 ML IV SCH ×2 (02:36→10:07)
[2019-03-02] MEDS: VITAMIN B6 PYRIDOXINE 100 MG PO SCH (06:25)
[2019-03-02 07:33] LABS: CHLORIDE,CL 104 mmol/L (98-107); SODIUM,NA 138 mmol/L (136-145)
[2019-03-02] MEDS: Insulin Aspart 100 Units/ML 3 ML Pen SUBCUT SCH ×2 (08:33→12:27)
[2019-03-02] MEDS: Insulin Glargine,Human Rec. Analog 100 Units/ML 3 ML Pen SUBCUT SCH (08:34)
[2019-03-02] MEDS ORDERED: atorvaSTATin 40 MG Tab PO SCH (09:00)
[2019-03-02] MEDS ORDERED: Pantoprazole 40 MG Tab.CR PO SCH (09:00)
[2019-03-02] MEDS ORDERED: Non-Formulary Medication 1 Each (Valsartan [Valsartan] 160 MG) PO SCH (09:00)
[2019-03-02] MEDS ORDERED: Insulin Glargine,Human Rec. Analog 100 Units/ML 3 ML Pen SUBCUT SCH ×2 (09:00)
[2019-03-02] MEDS ORDERED: Insulin Glargine,Human Rec. Analog 100 Units/ML 3 ML Pen SUBCUT ONE (10:00)
[2019-03-02] MEDS: Vitamin B6-pyridOXINE 50 MG Tab PO SCH ×2 (11:06→14:04)
[2019-03-02] MEDS ORDERED: Hydrochlorothiazide 25 MG Tab PO ONE (12:44)
[2019-03-02 14:14] VITALS: BP 183/101
[2019-03-02] MEDS ORDERED: Acetaminophen 325 MG Tab PO ONE (14:43)
--- NOTE | 2019-03-02 17:13 | PCM.DCSUM1 ---
Discharge Summary - Hospital Course Free Text/Narrative:: Admission date: 03/01/2019 Discharge date: 03/02/2019 Admission diagnosis: #1. Type 2 second degree heart block #2. Dehydration #3. Hypokalemia #4. Hypomagnesemia #5. History of HTN, metastatic colon cancer Discharge diagnosis: #1. History of HTN, metastatic colon cancer, T2DM Hospital course: 58F presented to the ER complaining of palpitations after going to her infusion center appointment for chemotherapy which she gets Leucovorin. Patient says that after getting her pre-medication, she began to feel palpitations. EKG obtained in the ER showed Type 2 second degree heart block. Patient was not dizzy nor did she have a near syncope episode. She was given IV fluids with potassium during her hospital stay and she felt better the next day. The EKG was discussed and showed to our public transportation inspector, who stated that she should be stopped on her Diltiazem. After discussing medications with the patient, it appears that she has been taking this medication but has been noncompliant with valsartan/hctz due to being confused on which medications she needs to take. Thus, I will DC diltiazem and continue the other 2 agents. The importance of this was discussed at length. She will f/u with her PCP and cardiology. This EKG finding may be secondary to a side effect from a pre-medication prior to her chemotherapy. - Discharge Data Discharge Date: 03/02/19 Discharge Disposition: Home, Self-Care 01 Condition: Fair - Patient Instructions Diet: Heart Healthy Diet Activity: As Tolerated Notify Provider of: Fever, Increased Pain, Nausea and/or Vomiting - Discharge Plan Prescriptions/Med Rec: hydroCHLOROthiazide [Hydrochlorothiazide] 25 mg PO DAILY 30 Days #30 tablet Ondansetron [Zofran ODT] 4 mg PO Q6H PRN #20 tab.dis PRN Reason: Nausea Valsartan 160 mg PO DAILY 30 Days #30 tablet Home Medications: Home Meds metFORMIN [Glucophage] 1,000 mg PO BIDMEALS 05/09/14 [History] LORazepam [Ativan] 1 mg PO BEDTIME PRN 12/26/15 [History] Insulin Glarg,Human.Rec.Analog [LantUS Solostar] 34 units SUBCUT BID 08/06/17 [ History] Pantoprazole [ProTONIX] 40 mg PO DAILY 08/06/17 [History] Insulin Aspart [NovoLOG] 16 unit SUBCUT TIDAC 02/04/18 [History] Loperamide [Imodium] 2 mg PO Q4H PRN MDD loose stool 07/20/18 [History] Calcium Carbonate [Calcium] 1,250 mg PO DAILY 03/01/19 [History] Diphenhyd/Lidocaine/Nystatin [Magic Mouthwash] 5 ml PO Q4H PRN 03/01/19 [History ] Estrogens, Conjugated [Premarin Vaginal Crm] 0.5 gram VAG BEDTIME 03/01/19 [ History] Furosemide 40 mg PO DAILY 03/01/19 [History] Loratadine [Claritin] 10 mg PO DAILY PRN 03/01/19 [History] Ondansetron [Zofran ODT] 4 mg PO TID PRN 03/01/19 [History] Vitamin B6-pyridOXINE 100 mg PO TID 03/01/19 [History] atorvaSTATin Calcium [Lipitor] 40 mg PO DAILY 03/01/19 [History] Ondansetron [Zofran ODT] 4 mg PO Q6H PRN #20 tab.dis 03/02/19 [Rx] Valsartan 160 mg PO DAILY 30 Days #30 tablet 03/02/19 [Rx] hydroCHLOROthiazide [Hydrochlorothiazide] 25 mg PO DAILY 30 Days #30 tablet [Rx] Patient Handouts: Hydrochlorothiazide, HCTZ; Losartan tablets, Valsartan tablets, Ondansetron tablets Referrals: Boyd Knutson MD [Primary Care Provider] - 03/08/19 1:00 pm (An appointment was made at the [facility]. ) - Discharge Summary/Plan Comment DC Time >30 min.: No - Patient Data Vitals - Most Recent: Last Vital Signs Temp 36.1 C 03/02/19 12:00 Pulse 95 03/02/19 14:13 Resp 16 03/02/19 12:00 BP 183/101 H 03/02/19 14:13 Pulse Ox 100 03/02/19 12:00 Weight - Most Recent: 72.121 kg I&O - Last 24 hours: Intake & Output 03/02/19 03/02/19 03/02/19 06:59 14:59 22:59 Intake Total 2285 1000 1271 Output Total 1500 1800 Balance 785 1000 -529 Lab Results - Last 24 hrs: Laboratory Results - last 24 hr 03/01/19 03/01/19 03/01/19 Range/Units 16:20 16:20 16:20 WBC (4.0-11.0) K/uL RBC (4.30-5.90) M/uL Hgb (12.0-16.0) g/dL Hct (36.0-46.0) % MCV (80.0-98.0) fL MCH (27.0-32.0) pg MCHC (31.0-37.0) g/dL RDW Std Deviation (28.0-62.0) fl RDW Coeff of Ej (11.0-15.0) % Plt Count (150-400) K/uL MPV (7.40-12.00) fL Neut % (Auto) (48.0-80.0) % Lymph % (Auto) (16.0-40.0) % [place] % (Auto) (0.0-15.0) % Eos % (Auto) (0.0-7.0) % Baso % (Auto) (0.0-1.5) % Neut # (Auto) (1.4-5.7) K/uL Lymph # (Auto) (0.6-2.4) K/uL [place] # (Auto) (0.0-0.8) K/uL Eos # (Auto) (0.0-0.7) K/uL Baso # (Auto) (0.0-0.1) K/uL Nucleated RBC % /100WBC Nucleated RBCs # K/uL Sodium 136 (136-145) mmol/L Potassium 3.4 L (3.5-5.1) mmol/L Chloride 98 (98-107) mmol/L Carbon Dioxide 24.2 (21.0-32.0) mmol/L BUN 10 (7.0-18.0) mg/dL Creatinine 0.8 (0.6-1.0) mg/dL Est Cr Clr Drug Dosing 61.36 mL/min Estimated GFR (MDRD) > 60.0 ml/min Glucose 384 H (74-106) mg/dL POC Glucose (60-110) mg/dL Calcium 9.0 (8.5-10.1) mg/dL Magnesium 1.6 L (1.8-2.4) mg/dL Total Bilirubin 1.2 H (0.2-1.0) mg/dL AST 77 H (15-37) IU/L ALT 67 H (14-63) IU/L Alkaline Phosphatase 324 H (46-116) U/L Troponin I < 0.050 (0.000-0.056) ng/mL Total Protein 7.6 (6.4-8.2) g/dL Albumin 3.8 (3.4-5.0) g/dL Globulin 3.8 (2.6-4.0) g/dL Albumin/Globulin Ratio 1.0 (0.9-1.6) TSH 3rd Generation 1.16 (0.36-3.74) uIU/mL Urine Color Urine Appearance Urine pH (5.0-8.0) Ur Specific [place] (1.001-1.035) Urine Protein (NEGATIVE) mg/dL Urine Glucose (UA) (NEGATIVE) mg/dL Urine Ketones (NEGATIVE) mg/dL Urine Occult Blood (NEGATIVE) Urine Nitrite (NEGATIVE) Urine Bilirubin (NEGATIVE) Urine Urobilinogen (<2.0) EU/dL Ur Leukocyte Esterase (NEGATIVE) Urine RBC (0-2/HPF) Urine WBC (0-5/HPF) Ur Epithelial Cells (NONE-FEW) Urine Bacteria (NEGATIVE) 03/01/19 03/01/19 03/01/19 Range/Units 16:57 20:19 22:07 WBC (4.0-11.0) K/uL RBC (4.30-5.90) M/uL Hgb (12.0-16.0) g/dL Hct (36.0-46.0) % MCV (80.0-98.0) fL MCH (27.0-32.0) pg MCHC (31.0-37.0) g/dL RDW Std Deviation (28.0-62.0) fl RDW Coeff of Ej (11.0-15.0) % Plt Count (150-400) K/uL MPV (7.40-12.00) fL Neut % (Auto) (48.0-80.0) % Lymph % (Auto) (16.0-40.0) % [place] % (Auto) (0.0-15.0) % Eos % (Auto) (0.0-7.0) % Baso % (Auto) (0.0-1.5) % Neut # (Auto) (1.4-5.7) K/uL Lymph # (Auto) (0.6-2.4) K/uL [place] # (Auto) (0.0-0.8) K/uL Eos # (Auto) (0.0-0.7) K/uL Baso # (Auto) (0.0-0.1) K/uL Nucleated RBC % /100WBC Nucleated RBCs # K/uL Sodium (136-145) mmol/L Potassium (3.5-5.1) mmol/L Chloride (98-107) mmol/L Carbon Dioxide (21.0-32.0) mmol/L BUN (7.0-18.0) mg/dL Creatinine (0.6-1.0) mg/dL Est Cr Clr Drug Dosing mL/min Estimated GFR (MDRD) ml/min Glucose (74-106) mg/dL POC Glucose 416 H 465 H (60-110) mg/dL Calcium (8.5-10.1) mg/dL Magnesium (1.8-2.4) mg/dL Total Bilirubin (0.2-1.0) mg/dL AST (15-37) IU/L ALT (14-63) IU/L Alkaline Phosphatase (46-116) U/L Troponin I (0.000-0.056) ng/mL Total Protein (6.4-8.2) g/dL Albumin (3.4-5.0) g/dL Globulin (2.6-4.0) g/dL Albumin/Globulin Ratio (0.9-1.6) TSH 3rd Generation (0.36-3.74) uIU/mL Urine Color YELLOW Urine Appearance CLEAR Urine pH 7.0 (5.0-8.0) Ur Specific [place] 1.015 (1.001-1.035) Urine Protein 100 H (NEGATIVE) mg/dL Urine Glucose (UA) >=1000 (NEGATIVE) mg/dL Urine Ketones 15 H (NEGATIVE) mg/dL Urine Occult Blood NEGATIVE (NEGATIVE) Urine Nitrite NEGATIVE (NEGATIVE) Urine Bilirubin NEGATIVE (NEGATIVE) Urine Urobilinogen 0.2 (<2.0) EU/dL Ur Leukocyte Esterase NEGATIVE (NEGATIVE) Urine RBC 0-1 (0-2/HPF) Urine WBC 0-2 (0-5/HPF) Ur Epithelial Cells RARE (NONE-FEW) Urine Bacteria RARE (NEGATIVE) 03/01/19 03/02/19 03/02/19 Range/Units 23:50 01:02 06:08 WBC 3.65 L (4.0-11.0) K/uL RBC 4.21 L (4.30-5.90) M/uL Hgb 13.0 (12.0-16.0) g/dL Hct 38.2 (36.0-46.0) % MCV 90.7 (80.0-98.0) fL MCH 30.9 (27.0-32.0) pg MCHC 34.0 (31.0-37.0) g/dL RDW Std Deviation 52.4 (28.0-62.0) fl RDW Coeff of Ej 16 H (11.0-15.0) % Plt Count 120 L (150-400) K/uL MPV 9.40 (7.40-12.00) fL Neut % (Auto) 82.7 H (48.0-80.0) % Lymph % (Auto) 11.0 L (16.0-40.0) % [place] % (Auto) 6.3 (0.0-15.0) % Eos % (Auto) 0.0 (0.0-7.0) % Baso % (Auto) 0.0 (0.0-1.5) % Neut # (Auto) 3.0 (1.4-5.7) K/uL Lymph # (Auto) 0.4 L (0.6-2.4) K/uL [place] # (Auto) 0.2 (0.0-0.8) K/uL Eos # (Auto) 0.0 (0.0-0.7) K/uL Baso # (Auto) 0.0 (0.0-0.1) K/uL Nucleated RBC % 0.0 /100WBC Nucleated RBCs # 0 K/uL Sodium (136-145) mmol/L Potassium (3.5-5.1) mmol/L Chloride (98-107) mmol/L Carbon Dioxide (21.0-32.0) mmol/L BUN (7.0-18.0) mg/dL Creatinine (0.6-1.0) mg/dL Est Cr Clr Drug Dosing mL/min Estimated GFR (MDRD) ml/min Glucose (74-106) mg/dL POC Glucose 350 H (60-110) mg/dL Calcium (8.5-10.1) mg/dL Magnesium (1.8-2.4) mg/dL Total Bilirubin (0.2-1.0) mg/dL AST (15-37) IU/L ALT (14-63) IU/L Alkaline Phosphatase (46-116) U/L Troponin I < 0.050 (0.000-0.056) ng/mL Total Protein (6.4-8.2) g/dL Albumin (3.4-5.0) g/dL Globulin (2.6-4.0) g/dL Albumin/Globulin Ratio (0.9-1.6) TSH 3rd Generation (0.36-3.74) uIU/mL Urine Color Urine Appearance Urine pH (5.0-8.0) Ur Specific [place] (1.001-1.035) Urine Protein (NEGATIVE) mg/dL Urine Glucose (UA) (NEGATIVE) mg/dL Urine Ketones (NEGATIVE) mg/dL Urine Occult Blood (NEGATIVE) Urine Nitrite (NEGATIVE) Urine Bilirubin (NEGATIVE) Urine Urobilinogen (<2.0) EU/dL Ur Leukocyte Esterase (NEGATIVE) Urine RBC (0-2/HPF) Urine WBC (0-5/HPF) Ur Epithelial Cells (NONE-FEW) Urine Bacteria (NEGATIVE) 03/02/19 03/02/19 03/02/19 Range/Units 06:08 06:08 06:09 WBC (4.0-11.0) K/uL RBC (4.30-5.90) M/uL Hgb (12.0-16.0) g/dL Hct (36.0-46.0) % MCV (80.0-98.0) fL MCH (27.0-32.0) pg MCHC (31.0-37.0) g/dL RDW Std Deviation (28.0-62.0) fl RDW Coeff of Ej (11.0-15.0) % Plt Count (150-400) K/uL MPV (7.40-12.00) fL Neut % (Auto) (48.0-80.0) % Lymph % (Auto) (16.0-40.0) % [place] % (Auto) (0.0-15.0) % Eos % (Auto) (0.0-7.0) % Baso % (Auto) (0.0-1.5) % Neut # (Auto) (1.4-5.7) K/uL Lymph # (Auto) (0.6-2.4) K/uL [place] # (Auto) (0.0-0.8) K/uL Eos # (Auto) (0.0-0.7) K/uL Baso # (Auto) (0.0-0.1) K/uL Nucleated RBC % /100WBC Nucleated RBCs # K/uL Sodium 138 (136-145) mmol/L Potassium 4.1 (3.5-5.1) mmol/L Chloride 104 (98-107) mmol/L Carbon Dioxide 21.9 (21.0-32.0) mmol/L BUN 14 (7.0-18.0) mg/dL Creatinine 0.7 (0.6-1.0) mg/dL Est Cr Clr Drug Dosing 70.13 mL/min Estimated GFR (MDRD) > 60.0 ml/min Glucose 271 H (74-106) mg/dL POC Glucose 270 H (60-110) mg/dL Calcium 9.0 (8.5-10.1) mg/dL Magnesium (1.8-2.4) mg/dL Total Bilirubin (0.2-1.0) mg/dL AST (15-37) IU/L ALT (14-63) IU/L Alkaline Phosphatase (46-116) U/L Troponin I < 0.050 (0.000-0.056) ng/mL Total Protein (6.4-8.2) g/dL Albumin (3.4-5.0) g/dL Globulin (2.6-4.0) g/dL Albumin/Globulin Ratio (0.9-1.6) TSH 3rd Generation (0.36-3.74) uIU/mL Urine Color Urine Appearance Urine pH (5.0-8.0) Ur Specific [place] (1.001-1.035) Urine Protein (NEGATIVE) mg/dL Urine Glucose (UA) (NEGATIVE) mg/dL Urine Ketones (NEGATIVE) mg/dL Urine Occult Blood (NEGATIVE) Urine Nitrite (NEGATIVE) Urine Bilirubin (NEGATIVE) Urine Urobilinogen (<2.0) EU/dL Ur Leukocyte Esterase (NEGATIVE) Urine RBC (0-2/HPF) Urine WBC (0-5/HPF) Ur Epithelial Cells (NONE-FEW) Urine Bacteria (NEGATIVE) 03/02/19 Range/Units 11:55 WBC (4.0-11.0) K/uL RBC (4.30-5.90) M/uL Hgb (12.0-16.0) g/dL Hct (36.0-46.0) % MCV (80.0-98.0) fL MCH (27.0-32.0) pg MCHC (31.0-37.0) g/dL RDW Std Deviation (28.0-62.0) fl RDW Coeff of Ej (11.0-15.0) % Plt Count (150-400) K/uL MPV (7.40-12.00) fL Neut % (Auto) (48.0-80.0) % Lymph % (Auto) (16.0-40.0) % [place] % (Auto) (0.0-15.0) % Eos % (Auto) (0.0-7.0) % Baso % (Auto) (0.0-1.5) % Neut # (Auto) (1.4-5.7) K/uL Lymph # (Auto) (0.6-2.4) K/uL [place] # (Auto) (0.0-0.8) K/uL Eos # (Auto) (0.0-0.7) K/uL Baso # (Auto) (0.0-0.1) K/uL Nucleated RBC % /100WBC Nucleated RBCs # K/uL Sodium (136-145) mmol/L Potassium (3.5-5.1) mmol/L Chloride (98-107) mmol/L Carbon Dioxide (21.0-32.0) mmol/L BUN (7.0-18.0) mg/dL Creatinine (0.6-1.0) mg/dL Est Cr Clr Drug Dosing mL/min Estimated GFR (MDRD) ml/min Glucose (74-106) mg/dL POC Glucose 341 H (60-110) mg/dL Calcium (8.5-10.1) mg/dL Magnesium (1.8-2.4) mg/dL Total Bilirubin (0.2-1.0) mg/dL AST (15-37) IU/L ALT (14-63) IU/L Alkaline Phosphatase (46-116) U/L Troponin I (0.000-0.056) ng/mL Total Protein (6.4-8.2) g/dL Albumin (3.4-5.0) g/dL Globulin (2.6-4.0) g/dL Albumin/Globulin Ratio (0.9-1.6) TSH 3rd Generation (0.36-3.74) uIU/mL Urine Color Urine Appearance Urine pH (5.0-8.0) Ur Specific [place] (1.001-1.035) Urine Protein (NEGATIVE) mg/dL Urine Glucose (UA) (NEGATIVE) mg/dL Urine Ketones (NEGATIVE) mg/dL Urine Occult Blood (NEGATIVE) Urine Nitrite (NEGATIVE) Urine Bilirubin (NEGATIVE) Urine Urobilinogen (<2.0) EU/dL Ur Leukocyte Esterase (NEGATIVE) Urine RBC (0-2/HPF) Urine WBC (0-5/HPF) Ur Epithelial Cells (NONE-FEW) Urine Bacteria (NEGATIVE) Med Orders - Current: Current Medications Discontinued Medications Acetaminophen (Tylenol) 650 mg PO NOW ONE Stop: 03/02/19 14:44 Last Admin: 03/02/19 14:57 Dose: 650 mg Atorvastatin Calcium (Lipitor) 40 mg PO DAILY [facility] Last Admin: 03/02/19 08:35 Dose: 40 mg Diphenhydramine/Nystatin/Lidocaine (Magic Mouthwash) 5 ml PO Q4H PRN PRN Reason: mouth pain Heparin Sodium (Porcine) (Heparin Lock Flush 100 Units/Ml) 500 units FLUSH ONETIME ONE Stop: 03/02/19 15:53 Last Admin: 03/02/19 15:55 Dose: 500 units Hydrochlorothiazide (Hydrochlorothiazide) 25 mg PO ONETIME ONE Stop: 03/02/19 12:45 Last Admin: 03/02/19 13:02 Dose: 25 mg Sodium Chloride (Normal Saline) 1,000 mls @ 125 mls/hr IV ASDIRECTED MARIA T Last Admin: 03/01/19 16:27 Dose: 125 mls/hr Magnesium Sulfate 2 gm/ Premix 50 mls @ 25 mls/hr IV ONETIME ONE Stop: 03/01/19 19:51 Last Admin: 03/01/19 17:59 Dose: 25 mls/hr Potassium Chloride/Sodium Chloride (Normal Saline With 40 Meq Kcl) 1,000 mls @ 150 mls/hr IV ASDIRECTED MARIA T Potassium Chloride/Sodium Chloride (Normal Saline With 20 Meq Kcl) 1,000 mls @ 150 mls/hr IV ASDIRECTED MARIA T Last Admin: 03/02/19 10:07 Dose: 150 mls/hr Insulin Aspart (Novolog) 0 unit SUBCUT TIDAC [facility]; Protocol Last Admin: 03/02/19 12:27 Dose: 4 units Insulin Glargine (Lantus Solostar) 17 units SUBCUT BID [facility] Last Admin: 03/02/19 08:34 Dose: 17 units Insulin Glargine (Lantus Solostar) 34 units SUBCUT BID [facility] Insulin Glargine (Lantus Solostar) 34 units SUBCUT BID [facility] Last Admin: 03/02/19 10:09 Dose: Not Given Insulin Glargine (Lantus Solostar) 17 units SUBCUT ONETIME ONE Stop: 03/02/19 10:01 Last Admin: 03/02/19 10:06 Dose: 17 units Insulin Human Regular (Novolin R) 10 unit SUBCUT NOW [facility]; Protocol Stop: 03/01/19 20:46 Last Admin: 03/01/19 21:03 Dose: 10 units Insulin Human Regular (Novolin R) 10 unit SUBCUT NOW [facility]; Protocol Stop: 03/01/19 22:44 Last Admin: 03/01/19 23:00 Dose: 10 units Loratadine (Claritin) 10 mg PO DAILY PRN PRN Reason: Allergies Lorazepam (Ativan) 1 mg PO BEDTIME PRN PRN Reason: Anxiety Last Admin: 03/01/19 21:05 Dose: 1 mg Non-Formulary Medication (Valsartan [Valsartan]) 160 mg PO DAILY [facility] Non-Formulary Medication (Vitamin B6-Pyridoxine) 100 mg PO TID [facility] Last Admin: 03/02/19 06:25 Dose: Not Given Ondansetron HCl (Zofran) 4 mg IVPUSH ONETIME ONE Stop: 03/01/19 18:11 Last Admin: 03/01/19 18:17 Dose: 4 mg Ondansetron HCl (Zofran) 4 mg IVPUSH Q4H PRN PRN Reason: Nausea Pantoprazole Sodium (Protonix) 40 mg PO DAILY [facility] Last Admin: 03/02/19 08:35 Dose: 40 mg Pyridoxine HCl (Vitamin B6-Pyridoxine) 100 mg PO TID [facility] Last Admin: 03/02/19 14:04 Dose: 100 mg Sodium Chloride (Saline Flush) 10 ml FLUSH ASDIRECTED PRN PRN Reason: Keep Vein Open Sodium Chloride (Saline Flush) 2.5 ml FLUSH ASDIRECTED PRN PRN Reason: Keep Vein Open Valsartan (Diovan) 160 mg PO DAILY [facility] Last Admin: 03/02/19 08:47 Dose: 160 mg
== END 2019-03-02 16:28 | disposition home or self-care (01) ==
LOC: MW.ED 16:10 → MW.MS 17:21 → UNDOADMOB 17:45 → MW.MS 19:12
PROVIDERS: ADMIT Internal Medicine; ATTEND Internal Medicine
DX: I44.1 Atrioventricular block, second degree (principal); I10 Essential (primary) hypertension; E87.6 Hypokalemia; E83.42 Hypomagnesemia; E78.00 Pure hypercholesterolemia, unspecified; K21.9 Gastro-esophageal reflux disease without esophagitis; Z79.4 Long term (current) use of insulin; Z79.899 Other long term (current) drug therapy; Z79.890 Hormone replacement therapy; Z88.6 Allergy status to analgesic agent; Z88.5 Allergy status to narcotic agent; Z88.8 Allergy status to other drugs, medicaments and biological substances; Z91.018 Allergy to other foods; Z85.038 Personal history of other malignant neoplasm of large intestine
CPT/HCPCS: 36415; 71045; 80048; 80053; 81001; 82962; 83735; 84443; 84484; 85025; 93005; 96361; 96365; 96366; 96367; 96375; 99285; A4217; A9270; G0378; J1642; J1815; J2405; J3475; J3480; J7040; 99284

== ENCOUNTER 2019-03-24 00:11 | Emergency (ER) | payer OTHER ==
--- NOTE | 2019-03-24 00:22 | EDM.PDOC ---
ED HPI GENERAL MEDICAL PROBLEM - General Chief Complaint: Cardiovascular Problem Stated Complaint: DIZZINESS, RAPID HEART BEAT Time Seen by Provider: 03/24/19 00:14 - History of Present Illness INITIAL COMMENTS - FREE TEXT/NARRATIVE: HISTORY AND PHYSICAL: History of present illness: Patient is a 58-year-old female with history of metastatic colon cancer to the liver hypertension coronary artery disease presents a concern of dizziness and palpitations had similar episodes in the past and has been admitted for observation on a prior visit she was noted to have a Mobitz type II heart block admitted for observation did not want transfers refused pacemaker. Review of systems: As per history of present illness and below otherwise all systems reviewed and negative. Past medical history: As per history of present illness and as reviewed below otherwise noncontributory. Surgical history: As per history of present illness and as reviewed below otherwise noncontributory. Social history: No reported history of drug or alcohol abuse. Family history: As per history of present illness and as reviewed below otherwise noncontributory. Physical exam: HEENT: Atraumatic, normocephalic, pupils reactive, negative for conjunctival pallor or scleral icterus, mucous membranes moist, throat clear, neck supple, nontender, trachea midline. Lungs: Clear to auscultation, breath sounds equal bilaterally, chest nontender. Heart: S1S2, regular, negative for clicks, rubs, or JVD. Abdomen: Soft, nondistended, nontender. Negative for masses or hepatosplenomegaly. Negative for costovertebral tenderness. Pelvis: Stable nontender. Genitourinary: Deferred. Rectal: Deferred. Extremities: Atraumatic, negative for cords or calf pain. Neurovascular unremarkable. Neuro: Awake, alert, oriented. Cranial nerves II through XII unremarkable. Cerebellum unremarkable. Motor and sensory unremarkable throughout. Exam nonfocal. Diagnostics: CBC CMP troponin PT/INR chest x-ray EKG CT brain Therapeutics: IV O2 monitor Impression: #1 history of metastatic colon cancer or 2 history of hypertension #3 coronary artery disease #4 history of heart block with mobitz type II Definitive disposition and diagnosis as appropriate pending reevaluation and review of above. head Pain Score (Numeric/FACES): 6 - Related Data Allergies Allergy/AdvReac Type Severity Reaction Status Date / Time hydrocodone Allergy Unknown Hives Verified 03/24/19 00:17 ibuprofen Allergy Unknown Hives Verified 03/24/19 00:17 morphine Allergy Unknown Seizure Verified 03/24/19 00:17 nitroglycerin Allergy Unknown Difficulty Verified 03/24/19 00:17 Breathing caffeine Allergy Vomiting Verified 03/24/19 00:17 diphenhydramine HCl Allergy Excitabilit Verified 03/24/19 00:17 [From Benadryl] y Home Meds: Home Meds metFORMIN [Glucophage] 1,000 mg PO BIDMEALS 05/09/14 [History] LORazepam [Ativan] 1 mg PO BEDTIME PRN 12/26/15 [History] Insulin Glarg,Human.Rec.Analog [LantUS Solostar] 34 units SUBCUT BID 08/06/17 [ History] Pantoprazole [ProTONIX] 40 mg PO DAILY 08/06/17 [History] Insulin Aspart [NovoLOG] 16 unit SUBCUT TIDAC 02/04/18 [History] Loperamide [Imodium] 2 mg PO Q4H PRN MDD loose stool 07/20/18 [History] Calcium Carbonate [Calcium] 1,250 mg PO DAILY 03/01/19 [History] Diphenhyd/Lidocaine/Nystatin [Magic Mouthwash] 5 ml PO Q4H PRN 03/01/19 [History ] Estrogens, Conjugated [Premarin Vaginal Crm] 0.5 gram VAG BEDTIME 03/01/19 [ History] Furosemide 40 mg PO DAILY 03/01/19 [History] Loratadine [Claritin] 10 mg PO DAILY PRN 03/01/19 [History] Ondansetron [Zofran ODT] 4 mg PO TID PRN 03/01/19 [History] Vitamin B6-pyridOXINE 100 mg PO TID 03/01/19 [History] atorvaSTATin Calcium [Lipitor] 40 mg PO DAILY 03/01/19 [History] Ondansetron [Zofran ODT] 4 mg PO Q6H PRN #20 tab.dis 03/02/19 [Rx] Valsartan 160 mg PO DAILY 30 Days #30 tablet 03/02/19 [Rx] hydroCHLOROthiazide [Hydrochlorothiazide] 25 mg PO DAILY 30 Days #30 tablet [Rx] Past Medical History HEENT History: Reports: Impaired Vision Other HEENT History: wears glasses Cardiovascular History: Reports: High Cholesterol, Hypertension Respiratory History: Reports: None Gastrointestinal History: Reports: GERD Other Gastrointestinal History: hernia, colon CA Genitourinary History: Reports: UTI, Recurrent 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: , Other (See Below) Other FINISHED GOODS PLANNER History: x2 Musculoskeletal History: Reports: None Neurological History: Reports: None Psychiatric History: Reports: Anxiety, Depression Endocrine/Metabolic History: Reports: Diabetes, Type II Hematologic History: Reports: None Immunologic History: Reports: None Oncologic (Cancer) History: Reports: Colon, Liver, Metastatic Dermatologic History: Reports: None - Infectious Disease History Infectious Disease History: Reports: C-Difficile - Past Surgical History HEENT Surgical History: Reports: Adenoidectomy, Tonsillectomy Cardiovascular Surgical History: Reports: None Respiratory Surgical History: Reports: None GI Surgical History: Reports: Cholecystectomy, Colon, Hernia Repair/Other Other GI Surgeries/Procedures: colectomy x2 Female Surgical History: Reports: Section, Hysterectomy, Salpingo- Oophorectomy Other Female Surgeries/Procedures: X2 Endocrine Surgical History: Reports: None Neurological Surgical History: Reports: None Musculoskeletal Surgical History: Reports: None, Other (See Below) Other Musculoskeletal Surgeries/Procedures:: rigth knee pain Oncologic Surgical History: Reports: Other (See Below) Other Oncologic Surgeries/Procedures: presently on chemo treatment last done on 01/20/19 Dermatological Surgical History: Reports: None Social & Family History - Family History Family Medical History: Noncontributory GI: Reports: None - Tobacco Use Smoking Status *Q: Never Smoker Second Hand Smoke Exposure: No - Caffeine Use Caffeine Use: Reports: None Caffeine Use Comment: allergic to caffeine - Recreational Drug Use Recreational Drug Use: No ED ROS GENERAL - Review of Systems Review Of Systems: ROS reveals no pertinent complaints other than HPI. ED EXAM, GENERAL - Physical Exam Exam: See Below (See dictation) Course - Vital Signs Last Recorded V/S: Last Vital Signs Temp 36.9 C 03/24/19 00:14 Pulse 103 H 03/24/19 00:14 Resp 18 03/24/19 00:14 BP 164/97 H 03/24/19 00:14 Pulse Ox 97 03/24/19 00:14 - Orders/Labs/Meds Orders: Active Orders 24 hr Category Date Time Status EKG Documentation Completion [RC] STAT Care 03/24/19 00:20 Active Labs: Laboratory Tests 03/24/19 03/24/19 03/24/19 Range/Units 00:28 00:28 00:28 WBC 7.13 (4.0-11.0) K/uL RBC 4.11 L (4.30-5.90) M/uL Hgb 12.8 (12.0-16.0) g/dL Hct 38.3 (36.0-46.0) % MCV 93.2 (80.0-98.0) fL MCH 31.1 (27.0-32.0) pg MCHC 33.4 (31.0-37.0) g/dL RDW Std Deviation 51.2 (28.0-62.0) fl RDW Coeff of Ej 15 (11.0-15.0) % Plt Count 184 (150-400) K/uL MPV 9.90 (7.40-12.00) fL Neut % (Auto) 58.0 (48.0-80.0) % Lymph % (Auto) 30.9 (16.0-40.0) % [place] % (Auto) 8.7 (0.0-15.0) % Eos % (Auto) 2.1 (0.0-7.0) % Baso % (Auto) 0.3 (0.0-1.5) % Neut # (Auto) 4.1 (1.4-5.7) K/uL Lymph # (Auto) 2.2 (0.6-2.4) K/uL [place] # (Auto) 0.6 (0.0-0.8) K/uL Eos # (Auto) 0.2 (0.0-0.7) K/uL Baso # (Auto) 0.0 (0.0-0.1) K/uL Nucleated RBC % 0.0 /100WBC Nucleated RBCs # 0 K/uL INR 0.98 Sodium 134 L (136-145) mmol/L Potassium 3.7 (3.5-5.1) mmol/L Chloride 99 (98-107) mmol/L Carbon Dioxide 28.2 (21.0-32.0) mmol/L BUN 17 (7.0-18.0) mg/dL Creatinine 1.0 (0.6-1.0) mg/dL Est Cr Clr Drug Dosing 48.50 mL/min Estimated GFR (MDRD) 56.9 ml/min Glucose 210 H (74-106) mg/dL Calcium 8.8 (8.5-10.1) mg/dL Total Bilirubin 1.1 H (0.2-1.0) mg/dL AST 42 H (15-37) IU/L ALT 48 (14-63) IU/L Alkaline Phosphatase 256 H (46-116) U/L Troponin I < 0.050 (0.000-0.056) ng/mL Total Protein 7.6 (6.4-8.2) g/dL Albumin 3.6 (3.4-5.0) g/dL Globulin 4.0 (2.6-4.0) g/dL Albumin/Globulin Ratio 0.9 (0.9-1.6) Departure - Departure Time of Disposition: 01:38 Disposition: Home, Self-Care 01 Condition: Good Clinical Impression: Dizziness, Metastatic cancer Referrals: PCP,None [Primary Care Provider] - Forms: ED Department Discharge Additional Instructions: The following information is given to patients seen in the emergency department who are being discharged to home. This information is to outline your options for follow-up care. We provide all patients seen in our emergency department with a follow-up referral. The need for follow-up, as well as the timing and circumstances, are variable depending upon the specifics of your emergency department visit. If you don't have a primary care physician on staff, we will provide you with a referral. We always advise you to contact your personal physician following an emergency department visit to inform them of the circumstance of the visit and for follow-up with them and/or the need for any referrals to a consulting specialist. The emergency department will also refer you to a specialist when appropriate. This referral assures that you have the opportunity for followup care with a specialist. All of these measure are taken in an effort to provide you with optimal care, which includes your followup. Under all circumstances we always encourage you to contact your private physician who remains a resource for coordinating your care. When calling for followup care, please make the office aware that this follow-up is from your recent emergency room visit. If for any reason you are refused follow-up, please contact the [facility] emergency department at and asked to speak to the emergency department charge nurse. Follow-up primary medical doctor as discussed return as needed as discussed - My Orders Last 24 Hours: My Active Orders 03/24/19 00:20 EKG Documentation Completion [RC] STAT - Assessment/Plan Last 24 Hours: My Active Orders 03/24/19 00:20 EKG Documentation Completion [RC] STAT
[2019-03-24 00:58] LABS: CHLORIDE,CL 99 mmol/L (98-107); SODIUM,NA 134 mmol/L (136-145)
--- NOTE | 2019-03-24 01:00 | CT ---
INDICATION: Dizziness and chest pain. TECHNIQUE: CT head without contrast. COMPARISON: None. FINDINGS: CSF spaces: Within normal limits for age. Brain parenchyma: The wahl-white differentiation is normal. No sign of mass, hemorrhage, or midline shift. Skull base and calvarium: The visualized paranasal sinuses and mastoid air cells demonstrate no acute or significant findings. The visualized orbits are grossly unremarkable. No skull fractures. Atherosclerosis. IMPRESSION: Unremarkable noncontrast head CT. Please note that all CT scans at this facility use dose modulation, iterative reconstruction, and/or weight-based dosing when appropriate to reduce radiation dose to as low as reasonably achievable. Dictated by Jermain Dao MD @ Mar 24 2019 12:58AM Signed by Dr. Jermain Dao @ Mar 24 2019 1:00AM
--- NOTE | 2019-03-24 01:21 | CR ---
INDICATION: Chest pain TECHNIQUE: Chest 1 views COMPARISON: Chest x-ray 03/01/2019 FINDINGS: Cardiovascular and mediastinum: Normal heart size with atherosclerotic calcification. Catheter artery demonstrated at the proximal right atrium. Lungs and pleural spaces: Lungs are clear. No sign of infiltrate or mass. No sign of pleural effusion. No pneumothorax. Bones and soft tissues: No significant findings. IMPRESSION: No acute findings and no significant changes from the prior exam. Dictated by Jermain Dao MD @ Mar 24 2019 1:18AM Signed by Dr. Jermain Dao @ Mar 24 2019 1:19AM
[2019-03-24 02:14] VITALS: BP 148/93
== END 2019-03-24 01:55 | disposition home or self-care (01) ==
LOC: MW.ED 00:11
DX: R42 Dizziness and giddiness (principal); C18.9 Malignant neoplasm of colon, unspecified; C78.7 Secondary malignant neoplasm of liver and intrahepatic bile duct; I25.10 Atherosclerotic heart disease of native coronary artery without angina pectoris; I10 Essential (primary) hypertension; E11.9 Type 2 diabetes mellitus without complications; K21.9 Gastro-esophageal reflux disease without esophagitis; E78.00 Pure hypercholesterolemia, unspecified; Z79.4 Long term (current) use of insulin; Z86.79 Personal history of other diseases of the circulatory system; Z88.6 Allergy status to analgesic agent; Z91.018 Allergy to other foods; Z88.8 Allergy status to other drugs, medicaments and biological substances; Z79.899 Other long term (current) drug therapy
CPT/HCPCS: 36415; 70450; 70450-26; 71045; 71045-26; 80053; 84484; 85025; 85610; 93005; 99284; 99284-25

== ENCOUNTER 2019-05-21 19:00 | Emergency (ER) | payer OTHER ==
[2019-05-21] MEDS ORDERED: Sodium Chloride 0.9% 2.5 ML Syringe FLUSH PRN (19:01)
[2019-05-21] MEDS ORDERED: Sodium Chloride 0.9% 10 ML Syringe FLUSH PRN (19:01)
[2019-05-21] MEDS ORDERED: Sodium Chloride 0.9% 1,000 ML IV ONE (19:01)
--- NOTE | 2019-05-21 19:14 | EDM.PDOC ---
ED HPI GENERAL MEDICAL PROBLEM - General Chief Complaint: Chest Pain Stated Complaint: SHORTNESS OF BREATH, CHEST PAIN Time Seen by Provider: 05/21/19 19:14 Source of Information: Reports: Patient History Limitations: Reports: No Limitations - History of Present Illness INITIAL COMMENTS - FREE TEXT/NARRATIVE: HISTORY AND PHYSICAL: History of present illness: Patient is a 59-year-old female presents to the ED with complaint of chest pain , dizziness, nausea, and shortness of breath that began 1 hour prior to arrival to the ED. Patient has history of colon cancer on chemotherapy, diabetes, anxiety. She recently had a pacemaker placed 6 days ago secondary to an AV node block at [facility]. She states she has some abdominal pain that comes and goes, denies vomiting or diarrhea, fevers, or chills. Review of systems: As per history of present illness and below otherwise all systems reviewed and negative. Past medical history: As per history of present illness and as reviewed below otherwise noncontributory. Surgical history: As per history of present illness and as reviewed below otherwise noncontributory. Social history: No reported history of drug or alcohol abuse. Family history: As per history of present illness and as reviewed below otherwise noncontributory. Physical exam: General: Patient sitting comfortably in no acute distress and nontoxic appearing HEENT: Atraumatic, normocephalic, pupils reactive, negative for conjunctival pallor or scleral icterus, mucous membranes moist, throat clear, neck supple, nontender, trachea midline. No meningeal signs. Lungs: Absent breath sounds right upper lobe, chest nontender. Heart: S1S2, regular, negative for clicks, rubs, or overt murmur. Abdomen: Soft, nondistended, nontender. Negative for masses or hepatosplenomegaly. Negative for costovertebral tenderness. No rigidity, rebound , guarding. Pelvis: Stable nontender. Genitourinary: Deferred. Rectal: Deferred. Extremities: Atraumatic, negative for cords or calf pain. Neurovascular unremarkable. Neuro: Awake, alert, oriented. Cranial nerves II through XII unremarkable. Cerebellum unremarkable. Motor and sensory unremarkable throughout. Exam nonfocal. Notes: 2014 - Dr. Izquierdo consulted for patients right pneumothorax 2099 - Dr. Izquierdo in ED to place chest tube Dr. Izquierdo would like transfer to a facility with ICU bed availability and patient's comorbidities. 2199 - Patient reports improvement of SOB after chest tube. BP still elevated, will give labetalol. Diagnostics: CBC, CMP, troponin, EKG, CXR, CTA Therapeutics: Aspirin 324mg chewed 1mg Ativan IV 1L NS IV 20mg Labetalol IV Prescriptions: Impression: Pneumothorax s/p chest tube Plan: Discussed with Dr. Puri, hospitalist at [facility], patient accepted for transfer via flight. Definitive disposition and diagnosis as appropriate pending reevaluation and review of above. chest Pain Score (Numeric/FACES): 5 - Related Data Allergies Allergy/AdvReac Type Severity Reaction Status Date / Time hydrocodone Allergy Unknown Hives Verified 05/21/19 20:51 ibuprofen Allergy Unknown Hives Verified 05/21/19 20:51 morphine Allergy Unknown Seizure Verified 05/21/19 20:51 nitroglycerin Allergy Unknown Difficulty Verified 05/21/19 20:51 Breathing caffeine Allergy Vomiting Verified 05/21/19 20:51 diphenhydramine HCl Allergy Excitabilit Verified 05/21/19 20:51 [From Benadryl] y Home Meds: Home Meds metFORMIN [Glucophage] 1,000 mg PO BIDMEALS 05/09/14 [History] LORazepam [Ativan] 1 mg PO BEDTIME PRN 12/26/15 [History] Insulin Glarg,Human.Rec.Analog [LantUS Solostar] 34 units SUBCUT BID 08/06/17 [ History] Pantoprazole [ProTONIX] 40 mg PO DAILY 08/06/17 [History] Insulin Aspart [NovoLOG] 16 unit SUBCUT TIDAC 02/04/18 [History] Loperamide [Imodium] 2 mg PO Q4H PRN MDD loose stool 07/20/18 [History] Calcium Carbonate [Calcium] 1,250 mg PO DAILY 03/01/19 [History] Diphenhyd/Lidocaine/Nystatin [Magic Mouthwash] 5 ml PO Q4H PRN 03/01/19 [History ] Estrogens, Conjugated [Premarin Vaginal Crm] 0.5 gram VAG BEDTIME 03/01/19 [ History] Furosemide 40 mg PO DAILY 03/01/19 [History] Loratadine [Claritin] 10 mg PO DAILY PRN 03/01/19 [History] Ondansetron [Zofran ODT] 4 mg PO TID PRN 03/01/19 [History] Vitamin B6-pyridOXINE 100 mg PO TID 03/01/19 [History] atorvaSTATin Calcium [Lipitor] 40 mg PO DAILY 03/01/19 [History] Ondansetron [Zofran ODT] 4 mg PO Q6H PRN #20 tab.dis 03/02/19 [Rx] Valsartan 160 mg PO DAILY 30 Days #30 tablet 03/02/19 [Rx] hydroCHLOROthiazide [Hydrochlorothiazide] 25 mg PO DAILY 30 Days #30 tablet [Rx] Past Medical History HEENT History: Reports: Impaired Vision Other HEENT History: wears glasses Cardiovascular History: Reports: High Cholesterol, Hypertension Respiratory History: Reports: None Gastrointestinal History: Reports: GERD Other Gastrointestinal History: hernia, colon CA Genitourinary History: Reports: UTI, Recurrent 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: , Other (See Below) Other INSTRUCTIONAL DESIGN TECHNOLOGIST History: x2 Musculoskeletal History: Reports: None Neurological History: Reports: None Psychiatric History: Reports: Anxiety, Depression Endocrine/Metabolic History: Reports: Diabetes, Type II Hematologic History: Reports: None Immunologic History: Reports: None Oncologic (Cancer) History: Reports: Colon, Liver, Metastatic Dermatologic History: Reports: None - Infectious Disease History Infectious Disease History: Reports: C-Difficile - Past Surgical History HEENT Surgical History: Reports: Adenoidectomy, Tonsillectomy Cardiovascular Surgical History: Reports: None Respiratory Surgical History: Reports: None GI Surgical History: Reports: Cholecystectomy, Colon, Hernia Repair/Other Other GI Surgeries/Procedures: colectomy x2 Female Surgical History: Reports: Section, Hysterectomy, Salpingo- Oophorectomy Other Female Surgeries/Procedures: X2 Endocrine Surgical History: Reports: None Neurological Surgical History: Reports: None Musculoskeletal Surgical History: Reports: None, Other (See Below) Other Musculoskeletal Surgeries/Procedures:: rigth knee pain Oncologic Surgical History: Reports: Other (See Below) Other Oncologic Surgeries/Procedures: presently on chemo treatment last done on 01/20/19 Dermatological Surgical History: Reports: None Social & Family History - Family History Family Medical History: Noncontributory GI: Reports: None - Caffeine Use Caffeine Use: Reports: None Caffeine Use Comment: allergic to caffeine ED ROS GENERAL - Review of Systems Review Of Systems: ROS reveals no pertinent complaints other than HPI. ED EXAM, GENERAL - Physical Exam Exam: See Below (see dictation) Course - Vital Signs Last Recorded V/S: Last Vital Signs Temp 96.3 F 05/21/19 19:26 Pulse 103 H 05/21/19 19:26 Resp 16 05/21/19 19:26 BP 196/110 H 05/21/19 19:26 Pulse Ox 96 05/21/19 19:26 - Orders/Labs/Meds Orders: Active Orders 24 hr Category Date Time Status Cardiac Monitoring [RC] . DIRECTED Care 05/21/19 19:01 Active EKG Documentation Completion [RC] STAT Care 05/21/19 19:01 Active Chest 1V Frontal [CR] Stat Exams 05/21/19 21:27 Taken Sodium Chloride 0.9% [Saline Flush] Med 05/21/19 19:01 Active 10 ml FLUSH ASDIRECTED PRN Sodium Chloride 0.9% [Saline Flush] Med 05/21/19 19:01 Active 2.5 ml FLUSH ASDIRECTED PRN Saline Lock Insert [OM.PC] Stat Oth 05/21/19 19:01 Ordered Medication Orders Sodium Chloride (Saline Flush) 10 ml FLUSH ASDIRECTED PRN PRN Reason: Keep Vein Open Sodium Chloride (Saline Flush) 2.5 ml FLUSH ASDIRECTED PRN PRN Reason: Keep Vein Open Labs: Laboratory Tests 05/21/19 05/21/19 05/21/19 Range/Units 19:05 19:05 19:05 WBC 5.14 (4.0-11.0) K/uL RBC 4.54 (4.30-5.90) M/uL Hgb 13.9 (12.0-16.0) g/dL Hct 41.1 (36.0-46.0) % MCV 90.5 (80.0-98.0) fL MCH 30.6 (27.0-32.0) pg MCHC 33.8 (31.0-37.0) g/dL RDW Std Deviation 51.9 (28.0-62.0) fl RDW Coeff of Ej 16 H (11.0-15.0) % Plt Count 122 L (150-400) K/uL MPV 9.80 (7.40-12.00) fL Neut % (Auto) 38.9 L (48.0-80.0) % Lymph % (Auto) 44.0 H (16.0-40.0) % [place] % (Auto) 14.4 (0.0-15.0) % Eos % (Auto) 2.1 (0.0-7.0) % Baso % (Auto) 0.6 (0.0-1.5) % Neut # (Auto) 2.0 (1.4-5.7) K/uL Lymph # (Auto) 2.3 (0.6-2.4) K/uL [place] # (Auto) 0.7 (0.0-0.8) K/uL Eos # (Auto) 0.1 (0.0-0.7) K/uL Baso # (Auto) 0.0 (0.0-0.1) K/uL Nucleated RBC % 0.0 /100WBC Nucleated RBCs # 0 K/uL INR 0.94 Sodium 136 (136-145) mmol/L Potassium 3.1 L (3.5-5.1) mmol/L Chloride 97 L (98-107) mmol/L Carbon Dioxide 29.6 (21.0-32.0) mmol/L BUN 12 (7.0-18.0) mg/dL Creatinine 1.0 (0.6-1.0) mg/dL Est Cr Clr Drug Dosing 48.50 mL/min Estimated GFR (MDRD) 56.9 ml/min Glucose 297 H (74-106) mg/dL Calcium 9.3 (8.5-10.1) mg/dL Total Bilirubin 1.6 H (0.2-1.0) mg/dL AST 40 H (15-37) IU/L ALT 32 (14-63) IU/L Alkaline Phosphatase 315 H (46-116) U/L Troponin I < 0.050 (0.000-0.056) ng/mL Total Protein 7.2 (6.4-8.2) g/dL Albumin 3.3 L (3.4-5.0) g/dL Globulin 3.9 (2.6-4.0) g/dL Albumin/Globulin Ratio 0.9 (0.9-1.6) Meds: Medications Generic Name Dose Route Start Last Admin Trade Name Freq PRN Reason Stop Dose Admin Sodium Chloride 10 ml 05/21/19 19:01 Saline Flush FLUSH ASDIRECTED PRN Keep Vein Open Sodium Chloride 2.5 ml 05/21/19 19:01 Saline Flush FLUSH ASDIRECTED PRN Keep Vein Open Discontinued Medications Generic Name Dose Route Start Last Admin Trade Name Marshall PRN Reason Stop Dose Admin Aspirin 324 mg 05/21/19 19:15 05/21/19 19:17 Aspirin PO 05/21/19 19:16 324 mg ONETIME ONE Administration Aspirin Confirm 05/21/19 19:16 05/21/19 19:22 Aspirin Administered 05/21/19 19:17 Not Given Dose 324 mg .ROUTE .STK-MED ONE Hydromorphone HCl 1 mg 05/21/19 20:55 05/21/19 21:00 Dilaudid IVPUSH 05/21/19 20:56 1 mg ONETIME ONE Administration Hydromorphone HCl Confirm 05/21/19 20:58 05/21/19 22:26 Dilaudid Administered 05/21/19 20:59 Not Given Dose 1 mg .ROUTE .STK-MED ONE Sodium Chloride 1,000 mls @ 999 mls/hr 05/21/19 19:01 05/21/19 19:12 Normal Saline IV 05/21/19 20:01 999 mls/hr BOLUS ONE Administration Cefazolin Sodium/Dextrose 2 gm 50 mls @ 100 mls/hr 05/21/19 21:19 05/21/19 21 :50 / Premix IV 05/21/19 21:48 100 mls/hr ONETIME ONE Administration Iopamidol 80 ml 05/21/19 20:16 05/21/19 20:16 Isovue Multipack-370 (76%) IVPUSH 05/21/19 20:17 80 ml ONETIME ONE Administration Labetalol HCl 20 mg 05/21/19 21:56 05/21/19 22:05 Normodyne IVPUSH 05/21/19 21:57 20 mg ONETIME ONE Administration Protocol Labetalol HCl Confirm 05/21/19 21:57 05/21/19 22:26 Normodyne Administered 05/21/19 21:58 Not Given Dose 100 mg .ROUTE .STK-MED ONE Labetalol HCl 10 mg 05/21/19 22:15 05/21/19 22:25 Normodyne IVPUSH 05/21/19 22:16 Not Given ONETIME ONE Protocol Lidocaine HCl Confirm 05/21/19 20:27 05/21/19 21:20 Xylocaine 1% Administered 05/21/19 20:28 50 ml Dose Administration 50 ml .ROUTE .STK-MED ONE Lorazepam Confirm 05/21/19 19:16 05/21/19 19:22 Ativan Administered 05/21/19 19:17 Not Given Dose 2 mg .ROUTE .STK-MED ONE Lorazepam 1 mg 05/21/19 19:18 05/21/19 19:19 Ativan IVPUSH 05/21/19 19:19 1 mg ONETIME ONE Administration Departure - Departure Time of Disposition: 22:43 Disposition: Home, Self-Care 01 Condition: Good Clinical Impression: Pneumothorax Referrals: PCP,Unknown [Primary Care Provider] - Forms: ED Department Discharge - My Orders Last 24 Hours: My Active Orders 05/21/19 19:01 Cardiac Monitoring [RC] . DIRECTED EKG Documentation Completion [RC] STAT Sodium Chloride 0.9% [Saline Flush] 10 ml FLUSH ASDIRECTED PRN Sodium Chloride 0.9% [Saline Flush] 2.5 ml FLUSH ASDIRECTED PRN Saline Lock Insert [OM.PC] Stat - Assessment/Plan Last 24 Hours: My Active Orders 05/21/19 19:01 Cardiac Monitoring [RC] . DIRECTED EKG Documentation Completion [RC] STAT Sodium Chloride 0.9% [Saline Flush] 10 ml FLUSH ASDIRECTED PRN Sodium Chloride 0.9% [Saline Flush] 2.5 ml FLUSH ASDIRECTED PRN Saline Lock Insert [OM.PC] Stat
[2019-05-21] MEDS ORDERED: Aspirin 81 MG Tab.Chew PO ONE (19:15)
[2019-05-21] MEDS ORDERED: Aspirin 81 MG Tab.Chew ONE (19:16)
[2019-05-21] MEDS ORDERED: LORazepam 2 MG/ML SDV ONE (19:16)
[2019-05-21] MEDS ORDERED: LORazepam 2 MG/ML SDV IVPUSH ONE (19:18)
[2019-05-21 19:31] VITALS: BP 196/110
[2019-05-21 19:42] LABS: CHLORIDE,CL 97 mmol/L (98-107); SODIUM,NA 136 mmol/L (136-145)
--- NOTE | 2019-05-21 20:14 | CR ---
HISTORY: Chest pain. COMPARISON: 03/24/2019 FINDINGS: A portable erect AP view of the chest was obtained at 1913 hours. During the interval, a right-sided pacemaker has been placed with leads entering the right subclavian vein and terminating in the right atrium and right ventricle. There is a new large right pneumothorax with prominent collapse of the right upper and middle lobes centrally into the hilum. The right lower lobe remains moderately inflated. There is no sign of midline shift to suggest tension pneumothorax physiology. The left lung remains clear. Again seen is a left subclavian infusion port with its tip in satisfactory position in the superior vena cava at the cavoatrial junction. There is no sign of pneumothorax on the left. The heart remains normal in size. The mediastinum is normal in appearance. The osseous structures are normal in appearance for the patient`s age. IMPRESSION: New large right pneumothorax following placement of a right sided pacemaker generator and leads. No sign of mediastinal shift to suggest tension pneumothorax physiology. Left lung remains clear. Dictated by Serg Cuevas MD @ May 21 2019 8:10PM Signed by Dr. Serg Cuevas @ May 21 2019 8:13PM
[2019-05-21] MEDS ORDERED: Iopamidol 755 MG/ML 500 ML Multipack Bottle IVPUSH ONE (20:16)
[2019-05-21] MEDS ORDERED: Lidocaine 1% 50 ML MDV ONE (20:27)
[2019-05-21] MEDS ORDERED: HYDROmorphone 1 MG/ML Syringe IVPUSH ONE (20:55)
[2019-05-21] MEDS ORDERED: HYDROmorphone 1 MG/ML Syringe ONE (20:58)
--- NOTE | 2019-05-21 21:01 | CT ---
INDICATION: Chest pain and dyspnea. Rule out pulmonary embolism. TECHNIQUE: Volumetric helical scanning of the thorax was performed during infusion of 80 cc of Isovue 370 contrast material IV, timing optimized for pulmonary arterial opacification. Coronal and sagittal reconstructions were obtained. COMPARISON: Today`s chest x-ray and CT of 03/31/2019. FINDINGS: A large right pneumothorax is again demonstrated. No pulmonary arterial filling defect is identified. The heart size is normal. Calcified coronary arterial plaque is demonstrated. A cardiac pacer is noted. Due to the large right pneumothorax, there is passive atelectasis in the right lung. A large calcified granuloma in the anterior right upper lobe is noted. A noncalcified 11 x 10 x 8 mm nodule is demonstrated in the left upper lobe. This appears unchanged from the previous exam. The left lung is otherwise unremarkable. Small amount of fluid is present in the right pleural space. No airway abnormality is evident. No mediastinal or hilar lymphadenopathy is demonstrated. Images of the upper abdomen demonstrate multiple subtle low-attenuation liver lesions which appear larger than on the previous chest CT and suggest enlarging metastases. Numerous calcified granulomas in the liver and spleen are also noted. IMPRESSION: 1. Negative for pulmonary embolism. 2. Large right hydropneumothorax with tiny fluid component. The hydropneumothorax was evident on today`s chest x-ray. 3. Subtle low-attenuation liver lesions which appear increased from the previous chest CT, suggesting enlarging metastasis. 4. Stable 11 x 10 x 8 mm left upper lobe nodule. 5. Passive atelectasis in the right lung due to the pneumothorax. Please note that all CT scans at this facility use dose modulation, iterative reconstruction, and/or weight-based dosing when appropriate to reduce radiation dose to as low as reasonably achievable. Dictated by Diaz Anton MD @ May 21 2019 8:46PM Signed by Dr. Diaz Anton @ May 21 2019 8:58PM
[2019-05-21] MEDS ORDERED: ceFAZolin 2 GM in Premix Bag 1 BAG IV ONE (21:19)
[2019-05-21] MEDS ORDERED: Labetalol 100 MG/20 ML MDV IVPUSH ONE ×2 (21:56→22:15)
[2019-05-21] MEDS ORDERED: Labetalol 100 MG/20 ML MDV ONE (21:57)
--- NOTE | 2019-05-21 22:01 | PCM.CONS ---
H&P History of Present Illness - General Date of Service: 05/21/19 Source of Information: Patient History Limitations: Reports: No Limitations - History of Present Illness Initial Comments - Free Text/Narative: Patient is a 59 year old female who presents with a sudden onset of chest pain. She had a pacemaker placed Wednesday in [place]. Today she developed a sudden chest pain. She presented to the ER. She was hypertensive on arrival but admits to not taking any of her hypertensive medications today. She had a CTA to rule out a PE but was found to have a pneumothroax. chest Pain Score (Numeric/FACES): 5 - Related Data Allergies/Adverse Reactions: Allergies Allergy/AdvReac Type Severity Reaction Status Date / Time hydrocodone Allergy Unknown Hives Verified 05/21/19 20:51 ibuprofen Allergy Unknown Hives Verified 05/21/19 20:51 morphine Allergy Unknown Seizure Verified 05/21/19 20:51 nitroglycerin Allergy Unknown Difficulty Verified 05/21/19 20:51 Breathing caffeine Allergy Vomiting Verified 05/21/19 20:51 diphenhydramine HCl Allergy Excitabilit Verified 05/21/19 20:51 [From Benadryl] y Home Medications: Home Meds metFORMIN [Glucophage] 1,000 mg PO BIDMEALS 05/09/14 [History] LORazepam [Ativan] 1 mg PO BEDTIME PRN 12/26/15 [History] Insulin Glarg,Human.Rec.Analog [LantUS Solostar] 34 units SUBCUT BID 08/06/17 [ History] Pantoprazole [ProTONIX] 40 mg PO DAILY 08/06/17 [History] Insulin Aspart [NovoLOG] 16 unit SUBCUT TIDAC 02/04/18 [History] Loperamide [Imodium] 2 mg PO Q4H PRN MDD loose stool 07/20/18 [History] Calcium Carbonate [Calcium] 1,250 mg PO DAILY 03/01/19 [History] Diphenhyd/Lidocaine/Nystatin [Magic Mouthwash] 5 ml PO Q4H PRN 03/01/19 [History ] Estrogens, Conjugated [Premarin Vaginal Crm] 0.5 gram VAG BEDTIME 03/01/19 [ History] Furosemide 40 mg PO DAILY 03/01/19 [History] Loratadine [Claritin] 10 mg PO DAILY PRN 03/01/19 [History] Ondansetron [Zofran ODT] 4 mg PO TID PRN 03/01/19 [History] Vitamin B6-pyridOXINE 100 mg PO TID 03/01/19 [History] atorvaSTATin Calcium [Lipitor] 40 mg PO DAILY 03/01/19 [History] Ondansetron [Zofran ODT] 4 mg PO Q6H PRN #20 tab.dis 03/02/19 [Rx] Valsartan 160 mg PO DAILY 30 Days #30 tablet 03/02/19 [Rx] hydroCHLOROthiazide [Hydrochlorothiazide] 25 mg PO DAILY 30 Days #30 tablet [Rx] Past Medical History HEENT History: Reports: Impaired Vision Other HEENT History: wears glasses Cardiovascular History: Reports: High Cholesterol, Hypertension Respiratory History: Reports: None Gastrointestinal History: Reports: GERD Other Gastrointestinal History: hernia, colon CA Genitourinary History: Reports: UTI, Recurrent 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: , Other (See Below) Other OB/BYN History: x2 Musculoskeletal History: Reports: None Neurological History: Reports: None Psychiatric History: Reports: Anxiety, Depression Endocrine/Metabolic History: Reports: Diabetes, Type II Hematologic History: Reports: None Immunologic History: Reports: None Oncologic (Cancer) History: Reports: Colon, Liver, Metastatic Dermatologic History: Reports: None - Infectious Disease History Infectious Disease History: Reports: C-Difficile - Past Surgical History HEENT Surgical History: Reports: Adenoidectomy, Tonsillectomy Cardiovascular Surgical History: Reports: None Respiratory Surgical History: Reports: None GI Surgical History: Reports: Cholecystectomy, Colon, Hernia Repair/Other Other GI Surgeries/Procedures: colectomy x2 Female Surgical History: Reports: Section, Hysterectomy, Salpingo- Oophorectomy Other Female Surgeries/Procedures: X2 Endocrine Surgical History: Reports: None Neurological Surgical History: Reports: None Musculoskeletal Surgical History: Reports: None, Other (See Below) Other Musculoskeletal Surgeries/Procedures:: rigth knee pain Oncologic Surgical History: Reports: Other (See Below) Other Oncologic Surgeries/Procedures: presently on chemo treatment last done on 01/20/19 Dermatological Surgical History: Reports: None Social & Family History - Family History Family Medical History: Noncontributory GI: Reports: None - Tobacco Use Smoking Status *Q: Unknown Ever Smoked - Caffeine Use Caffeine Use: Reports: None Caffeine Use Comment: allergic to caffeine - Recreational Drug Use Recreational Drug Use: No H&P Review of Systems - Review of Systems: Review Of Systems: ROS reveals no pertinent complaints other than HPI. Exam - Exam Exam: See Below - Vital Signs Vital Signs: Last Vital Signs Temp 35.7 C 05/21/19 19:26 Pulse 103 H 05/21/19 19:26 Resp 16 05/21/19 19:26 BP 196/110 H 05/21/19 19:26 Pulse Ox 96 05/21/19 19:26 Weight: 68.492 kg - Exam Quality Assessment: Supplemental Oxygen General: Alert, Oriented, Cooperative, Mild Distress HEENT: Conjunctiva Clear, Mucosa Moist & [place], Posterior Pharynx Clear Neck: Supple Lungs: Normal Respiratory Effort, Other (No breath sounds on the right side of the chest. No subcutaneous emphysema. ) Cardiovascular: Regular Rate GI/Abdominal Exam: Soft, Non-Tender, No Distention, No Mass - Patient Data Lab Results Last 24 hrs: Laboratory Results - last 24 hr 05/21/19 05/21/19 05/21/19 Range/Units 19:05 19:05 19:05 WBC 5.14 (4.0-11.0) K/uL RBC 4.54 (4.30-5.90) M/uL Hgb 13.9 (12.0-16.0) g/dL Hct 41.1 (36.0-46.0) % MCV 90.5 (80.0-98.0) fL MCH 30.6 (27.0-32.0) pg MCHC 33.8 (31.0-37.0) g/dL RDW Std Deviation 51.9 (28.0-62.0) fl RDW Coeff of Ej 16 H (11.0-15.0) % Plt Count 122 L (150-400) K/uL MPV 9.80 (7.40-12.00) fL Neut % (Auto) 38.9 L (48.0-80.0) % Lymph % (Auto) 44.0 H (16.0-40.0) % Lee % (Auto) 14.4 (0.0-15.0) % Eos % (Auto) 2.1 (0.0-7.0) % Baso % (Auto) 0.6 (0.0-1.5) % Neut # (Auto) 2.0 (1.4-5.7) K/uL Lymph # (Auto) 2.3 (0.6-2.4) K/uL Lee # (Auto) 0.7 (0.0-0.8) K/uL Eos # (Auto) 0.1 (0.0-0.7) K/uL Baso # (Auto) 0.0 (0.0-0.1) K/uL Nucleated RBC % 0.0 /100WBC Nucleated RBCs # 0 K/uL INR 0.94 Sodium 136 (136-145) mmol/L Potassium 3.1 L (3.5-5.1) mmol/L Chloride 97 L (98-107) mmol/L Carbon Dioxide 29.6 (21.0-32.0) mmol/L BUN 12 (7.0-18.0) mg/dL Creatinine 1.0 (0.6-1.0) mg/dL Est Cr Clr Drug Dosing 48.50 mL/min Estimated GFR (MDRD) 56.9 ml/min Glucose 297 H (74-106) mg/dL Calcium 9.3 (8.5-10.1) mg/dL Total Bilirubin 1.6 H (0.2-1.0) mg/dL AST 40 H (15-37) IU/L ALT 32 (14-63) IU/L Alkaline Phosphatase 315 H (46-116) U/L Troponin I < 0.050 (0.000-0.056) ng/mL Total Protein 7.2 (6.4-8.2) g/dL Albumin 3.3 L (3.4-5.0) g/dL Globulin 3.9 (2.6-4.0) g/dL Albumin/Globulin Ratio 0.9 (0.9-1.6) Result Diagrams: 05/21/19 19:05 05/21/19 19:05 Consult PN Assessment/Plan Procedures: Procedures AGENT NOS ASSAY W/OPTIC (07/20/18) ASSAY OF AMYLASE (12/30/18) ASSAY OF CK (CPK) (12/30/18) ASSAY OF LACTIC ACID (01/22/19) ASSAY OF LIPASE (12/30/18) ASSAY OF MAGNESIUM (03/01/19) ASSAY OF NATRIURETIC PEPTIDE (01/22/19) ASSAY OF PARATHORMONE (07/20/18) ASSAY OF PHOSPHORUS (07/20/18) ASSAY OF PROTEIN URINE (04/05/18) ASSAY OF TROPONIN QUANT (03/24/19) ASSAY THYROID STIM HORMONE (03/01/19) BLOOD CULTURE FOR BACTERIA (01/22/19) CARCINOEMBRYONIC ANTIGEN (04/04/19) CHEMILUMINESCENT ASSAY (07/20/18) CHEMO IV INFUS EACH ADDL SEQ (04/04/19) CHEMO IV INFUSION 1 HR (04/04/19) CHEMO IV INFUSION ADDL HR (04/04/19) CHEMO IV PUSH ADDL DRUG (04/04/19) CHEMO PROLONG INFUSE W/PUMP (04/04/19) CHEST X-RAY 1 VIEW FRONTAL (08/27/17) CLOSTRIDIUM AG IA (07/20/18) COMPLETE CBC W/AUTO DIFF WBC (04/04/19) COMPREHEN METABOLIC PANEL (04/04/19) CT ABD & PELV 1/> REGNS (07/20/18) CT ABD & PELV W/CONTRAST (03/31/19) CT ABD & PELVIS W/O CONTRAST (01/22/19) CT ANGIOGRAPHY CHEST (04/08/17) CT HEAD/BRAIN W/O DYE (03/24/19) CT THORAX W/DYE (03/31/19) CULTURE SCREEN ONLY (08/27/17) DRAW BLOOD OFF VENOUS DEVICE (04/04/19) ECHO EXAM OF ABDOMEN (07/20/18) ELECTROCARDIOGRAM TRACING (03/24/19) EMERGENCY DEPT VISIT (03/24/19) EMERGENCY DEPT VISIT (03/01/19) EMERGENCY DEPT VISIT (08/27/17) EMERGENCY DEPT VISIT (08/06/17) EMERGENCY DEPT VISIT (08/02/17) EMERGENCY DEPT VISIT (04/08/17) EMERGENCY DEPT VISIT (02/02/16) EMERGENCY DEPT VISIT (12/26/15) EMERGENCY DEPT VISIT (12/26/14) EMERGENCY DEPT VISIT (12/02/14) EMERGENCY DEPT VISIT (09/15/14) EMERGENCY DEPT VISIT (05/12/14) EMERGENCY DEPT VISIT (05/12/14) EMERGENCY DEPT VISIT (05/09/14) EMERGENCY DEPT VISIT (05/09/14) EVALUATE PT USE OF INHALER (04/08/17) EXTREMITY STUDY (07/20/18) FIBRIN DEGRADATION QUANT (04/08/17) GLUCOSE BLOOD TEST (03/01/19) GLYCOSYLATED HEMOGLOBIN TEST (01/01/15) HYDRATE IV INFUSION ADD-ON (04/04/19) HYDRATION IV INFUSION INIT (08/27/17) IMMUNIZATION ADMIN (02/02/16) IRRIG DRUG DELIVERY DEVICE (04/04/19) LIPID PANEL (01/01/15) METABOLIC PANEL TOTAL CA (03/01/19) PROTHROMBIN TIME (03/24/19) ROUTINE VENIPUNCTURE (04/04/19) STOOL CULTR AEROBIC BACT EA (07/20/18) STREP A ASSAY W/OPTIC (08/27/17) TDAP VACCINE 7 YRS/> IM (02/02/16) THER/DIAG CONCURRENT INF (01/17/19) THER/PROPH/DIAG INJ IV PUSH (01/22/19) THER/PROPH/DIAG INJ SC/IM (04/05/18) THER/PROPH/DIAG IV INF ADDON (03/01/19) THER/PROPH/DIAG IV INF INIT (04/04/19) TTE W/DOPPLER COMPLETE (04/10/19) TX/PRO/DX INJ NEW DRUG ADDON (04/04/19) 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/20/18) TX/PROPH/DG ADDL SEQ IV INF (03/01/19) UR ALBUMIN SEMIQUANTITATIVE (01/01/15) URINALYSIS AUTO W/O SCOPE (04/04/19) URINALYSIS AUTO W/SCOPE (03/01/19) URINALYSIS NONAUTO W/SCOPE (07/03/14) URINE BACTERIA CULTURE (12/02/14) URINE CULTURE/COLONY COUNT (01/22/19) US EXAM ABDOM COMPLETE (03/11/18) VITAMIN D 25 HYDROXY (07/20/18) X-RAY EXAM CHEST 1 VIEW (03/24/19) X-RAY EXAM OF ABDOMEN (08/06/17) X-RAY EXAM OF ANKLE (08/02/17) X-RAY EXAM OF FOOT (08/02/17) X-RAY EXAM OF FOOT (12/26/14) X-RAY EXAM OF KNEE 3 (08/02/17) X-RAY EXAM OF LOWER LEG (02/02/16) (1) Pneumothorax SNOMED Code(s): 56739336 Code(s): J93.9 - PNEUMOTHORAX, UNSPECIFIED Current Visit: Yes Problem List Initiated/Reviewed/Updated: Yes My Orders Last 24 Hours: My Active Orders 05/21/19 21:27 Chest 1V Frontal [CR] Stat Plan: I explained the situation to the patient and the need for a chest tube. We discussed the procedure, expected perioperative course and the risks. She verbalized understanding. A right sided chest tube was placed. It angled downward, but she now has resolution of the pneumothorax. She is now complaining of pain just at the chest tube insertion site. She was given labetalol and her BP improved. Our facility has no inpatient beds and given her multiple medical problems will need to be monitored closely with telemetry. I anticipate a longer than 3 day stay. Given this, will transfer to [place] where her pacemaker was placed for higher level of care.
--- NOTE | 2019-05-21 22:42 | OR ---
SURGEON: SANDY IZQUIERDO MD DATE OF PROCEDURE: 05/21/2019 PREOPERATIVE DIAGNOSIS: Right pneumothorax. POSTOPERATIVE DIAGNOSIS: Right pneumothorax. PROCEDURE PERFORMED: Right chest tube placement. PRIMARY SURGEON: Dr. Sandy Izquierdo. ANESTHESIA: Local. ESTIMATED BLOOD LOSS: 5 mL. FINDINGS: Right chest tube placement 11.5 cm at the skin with good resolution of pneumothorax. COMPLICATIONS: None. INDICATIONS: The patient is a 59-year-old female who recently had a right-sided pacemaker placed earlier this week. Today, she developed a sudden onset of chest pain. She was brought to the emergency room and found to have a large pneumothorax on the right side of her chest. I reviewed the imaging and visited with the patient. I explained to her the need for a chest tube. The patient and I discussed the procedure, expected perioperative course, and risks including bleeding, infection, or damage to surrounding structures. The patient verbalized understanding and wishes to proceed. PROCEDURE IN DETAIL: The patient was met in the OR and placed on the OR cart in supine position with her right arm at 90 degrees above her head. A time-out was completed verifying the patient's name, age, date of , allergies, and procedure to be performed. 2 g of Ancef were given to the patient during the procedure. The right chest wall was prepped and draped in usual sterile fashion. I chose a chest tube insertion site. I was just lateral to the nipple and along the anterior axillary line. I anesthetized the skin and subcutaneous fat down to the chest wall using 1% lidocaine plain. 25 mL of this was used. A 10 blade was used to make a horizontal incision along the skin. A Jennie clamp was then used to dissect down to the level of the chest wall. I palpated the rib space and chosen an area just above the nearest rib. Using a hemostat, I then entered the chest wall over this rib. A large alvarenga of air was encountered. A 20-Wolof chest tube was then directed superiorly into the chest. It was secured at 16 cm on the skin. 2-0 silk sutures were used to secure the chest tube. There was good tidaling and a small air leak with inspiration. A chest x-ray was taken that showed the chest tube deep within the right chest and in the medial sulcus of the diaphragm. I pulled the chest tube back to 11.5 cm. The chest tube was still angled inferiorly, but the pneumothorax was resolved and the chest tube was no longer pushing against the medial diaphragmatic sulcus. Sterile occlusive dressings were applied. The patient tolerated the procedure well. There were no immediate complications. SKYE HANNA /[id number] MTDD
--- NOTE | 2019-05-21 22:50 | CR ---
Indication: Chest tube placement Technique: Chest 1 view Comparison: N same dated 7:13 p.m. one Findings/Impression: Interval placement of right-sided chest tube with tip projecting over the right cardiophrenic angle. There is a small residual right apical pneumothorax. No mediastinal shift. Linear atelectasis in the right upper lung field. Left-sided Port-A-Cath tip terminates at the level of the cavoatrial junction. Right-sided dual lead pacemaker appears stable in position. Stable cardiac size. No effusion. Dictated by Ailin Steven MD @ May 21 2019 10:48PM Signed by Dr. Ailin Steven @ May 21 2019 10:49PM
== END 2019-05-21 22:30 | disposition home or self-care (01) ==
LOC: MW.ED 19:00
DX: J93.9 Pneumothorax, unspecified (principal); E11.9 Type 2 diabetes mellitus without complications; I10 Essential (primary) hypertension; E78.00 Pure hypercholesterolemia, unspecified; F41.9 Anxiety disorder, unspecified; F32.9 Major depressive disorder, single episode, unspecified; Z88.6 Allergy status to analgesic agent; Z88.5 Allergy status to narcotic agent; Z91.018 Allergy to other foods; Z79.899 Other long term (current) drug therapy; Z79.4 Long term (current) use of insulin
CPT/HCPCS: 32551; 71045; 71275; 80053; 84484; 85025; 85610; 93005; 96361; 96365; 96375; 99291; 99292; A9270; J0690; J1170; J2001; J2060; J3490; J7040; Q9967; 99284

== ENCOUNTER 2019-05-29 15:01 | Emergency (ER) | payer OTHER ==
[2019-05-29] MEDS ORDERED: Sodium Chloride 0.9% 2.5 ML Syringe FLUSH PRN (15:17)
[2019-05-29] MEDS ORDERED: Sodium Chloride 0.9% 1,000 ML IV ONE (15:17)
[2019-05-29] MEDS ORDERED: Sodium Chloride 0.9% 10 ML Syringe FLUSH PRN (15:17)
--- NOTE | 2019-05-29 15:18 | EDM.PDOC ---
ED HPI GENERAL MEDICAL PROBLEM - General Chief Complaint: Gastrointestinal Problem Stated Complaint: AMB Time Seen by Provider: 05/29/19 15:17 Source of Information: Reports: Patient History Limitations: Reports: No Limitations - History of Present Illness INITIAL COMMENTS - FREE TEXT/NARRATIVE: HISTORY AND PHYSICAL: History of present illness: Patient is a 59-year-old female presents to the ED with complaint of constipation and abdominal pain. Patient was recently in the ED for a right pneumothorax following placement of a pacemaker. She was transferred to [place] after receiving a chest tube in the ED. Patient states that she has been on pain medications and she is currently taking Dilaudid at home. She has not had a bowel movement in 4 days. She states she is passing gas but she is starting to have abdominal pain and nauseous. Denies vomiting, fevers, chills, chest pain, shortness of breath, dysuria, hematuria. She states that she mostly has pain in her rectum. Review of systems: As per history of present illness and below otherwise all systems reviewed and negative. Past medical history: As per history of present illness and as reviewed below otherwise noncontributory. Surgical history: As per history of present illness and as reviewed below otherwise noncontributory. Social history: No reported history of drug or alcohol abuse. Family history: As per history of present illness and as reviewed below otherwise noncontributory. Physical exam: General: Patient sitting comfortably in no acute distress and nontoxic appearing HEENT: Atraumatic, normocephalic, pupils reactive, negative for conjunctival pallor or scleral icterus, mucous membranes moist, throat clear, neck supple, nontender, trachea midline. No meningeal signs. Lungs: Clear to auscultation, breath sounds equal bilaterally, chest nontender. Heart: S1S2, regular, negative for clicks, rubs, or overt murmur. Abdomen: Mild diffuse abdominal tenderness to palpation Soft, nondistended. Negative for masses or hepatosplenomegaly. Negative for costovertebral tenderness. No rigidity, rebound, guarding. Pelvis: Stable nontender. Genitourinary: Deferred. Rectal: Deferred. Extremities: Atraumatic, negative for cords or calf pain. Neurovascular unremarkable. Neuro: Awake, alert, oriented. Cranial nerves II through XII unremarkable. Cerebellum unremarkable. Motor and sensory unremarkable throughout. Exam nonfocal. Notes: Diagnostics: CBC, CMP, [employer]: 1 L normal saline IV 4 mg Zofran IV Enema Prescriptions: Impression: Constipation Plan: Take miralax as instructed and drink plenty of fluids Follow up with primary care provider Return to ED as needed as discussed Definitive disposition and diagnosis as appropriate pending reevaluation and review of above. Rectum Pain Score (Numeric/FACES): 10 - Related Data Allergies Allergy/AdvReac Type Severity Reaction Status Date / Time hydrocodone Allergy Unknown Hives Verified 05/29/19 15:10 ibuprofen Allergy Unknown Hives Verified 05/29/19 15:10 morphine Allergy Unknown Seizure Verified 05/29/19 15:10 nitroglycerin Allergy Unknown Difficulty Verified 05/29/19 15:10 Breathing caffeine Allergy Vomiting Verified 05/29/19 15:10 diphenhydramine HCl Allergy Excitabilit Verified 05/29/19 15:10 [From Benadryl] y Home Meds: Home Meds metFORMIN [Glucophage] 1,000 mg PO BIDMEALS 05/09/14 [History] LORazepam [Ativan] 1 mg PO BEDTIME PRN 12/26/15 [History] Insulin Glarg,Human.Rec.Analog [LantUS Solostar] 34 units SUBCUT BID 08/06/17 [ History] Pantoprazole [ProTONIX] 40 mg PO DAILY 08/06/17 [History] Insulin Aspart [NovoLOG] 16 unit SUBCUT TIDAC 02/04/18 [History] Loperamide [Imodium] 2 mg PO Q4H PRN MDD loose stool 07/20/18 [History] Calcium Carbonate [Calcium] 1,250 mg PO DAILY 03/01/19 [History] Diphenhyd/Lidocaine/Nystatin [Magic Mouthwash] 5 ml PO Q4H PRN 03/01/19 [History ] Estrogens, Conjugated [Premarin Vaginal Crm] 0.5 gram VAG BEDTIME 03/01/19 [ History] Furosemide 40 mg PO DAILY 03/01/19 [History] Loratadine [Claritin] 10 mg PO DAILY PRN 03/01/19 [History] Ondansetron [Zofran ODT] 4 mg PO TID PRN 03/01/19 [History] Vitamin B6-pyridOXINE 100 mg PO TID 03/01/19 [History] atorvaSTATin Calcium [Lipitor] 40 mg PO DAILY 03/01/19 [History] Ondansetron [Zofran ODT] 4 mg PO Q6H PRN #20 tab.dis 03/02/19 [Rx] Valsartan 160 mg PO DAILY 30 Days #30 tablet 03/02/19 [Rx] hydroCHLOROthiazide [Hydrochlorothiazide] 25 mg PO DAILY 30 Days #30 tablet [Rx] Past Medical History HEENT History: Reports: Impaired Vision Other HEENT History: wears glasses Cardiovascular History: Reports: High Cholesterol, Hypertension, Pacemaker Respiratory History: Reports: Pneumothorax Gastrointestinal History: Reports: GERD Other Gastrointestinal History: hernia, colon CA Genitourinary History: Reports: UTI, Recurrent [employer]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 [employer]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: , Other (See Below) 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 Musculoskeletal History: Reports: None Neurological History: Reports: None Psychiatric History: Reports: Anxiety, Depression Endocrine/Metabolic History: Reports: Diabetes, Type II Hematologic History: Reports: None Immunologic History: Reports: None Oncologic (Cancer) History: Reports: Colon, Liver, Metastatic Dermatologic History: Reports: None - Infectious Disease History Infectious Disease History: Reports: Measles, Other (See Below) Other Infectious Disease History: childhood - Past Surgical History HEENT Surgical History: Reports: Adenoidectomy, Tonsillectomy Cardiovascular Surgical History: Reports: None Respiratory Surgical History: Reports: Other (See Below) Other Respiratory Surgeries/Procedures: chest tube placements GI Surgical History: Reports: Cholecystectomy, Colon, Hernia Repair/Other Other GI Surgeries/Procedures: colectomy x2 Female Surgical History: Reports: Section, Hysterectomy, Salpingo- Oophorectomy Other Female Surgeries/Procedures: X2 Endocrine Surgical History: Reports: None Neurological Surgical History: Reports: None Musculoskeletal Surgical History: Reports: None, Other (See Below) Other Musculoskeletal Surgeries/Procedures:: rigth knee pain Oncologic Surgical History: Reports: Other (See Below) Other Oncologic Surgeries/Procedures: presently on chemo treatment last done on 01/20/19 Dermatological Surgical History: Reports: None Social & Family History - Family History Family Medical History: Noncontributory GI: Reports: None - Tobacco Use Smoking Status *Q: Never Smoker - Caffeine Use Caffeine Use: Reports: None Caffeine Use Comment: allergic to caffeine - Recreational Drug Use Recreational Drug Use: No ED ROS GENERAL - Review of Systems Review Of Systems: ROS reveals no pertinent complaints other than HPI. ED EXAM, GI/ABD - Physical Exam Exam: See Below (See dictation) Course - Vital Signs Last Recorded V/S: Last Vital Signs Temp 96.8 F 05/29/19 15:06 Pulse 95 05/29/19 15:06 Resp 20 05/29/19 15:06 BP 144/88 H 05/29/19 15:06 Pulse Ox 98 05/29/19 15:06 - Orders/Labs/Meds Orders: Active Orders 24 hr Category Date Time Status Heparin Sodium [Heparin Lock Flush 100 Units/ML] Med 05/29/19 18:19 Active 500 units FLUSH ASDIRECTED PRN Sodium Chloride 0.9% [Saline Flush] Med 05/29/19 15:17 Active 10 ml FLUSH ASDIRECTED PRN Sodium Chloride 0.9% [Saline Flush] Med 05/29/19 15:17 Active 2.5 ml FLUSH ASDIRECTED PRN Saline Lock Insert [OM.PC] Stat Oth 05/29/19 15:16 Ordered Medication Orders Heparin Sodium (Porcine) (Heparin Lock Flush 100 Units/Ml) 500 units FLUSH ASDIRECTED PRN PRN Reason: Other Last Admin: 05/29/19 18:23 Dose: 500 units Sodium Chloride (Saline Flush) 10 ml FLUSH ASDIRECTED PRN PRN Reason: Keep Vein Open Sodium Chloride (Saline Flush) 2.5 ml FLUSH ASDIRECTED PRN PRN Reason: Keep Vein Open Labs: Laboratory Tests 05/29/19 05/29/19 Range/Units 15:29 15:29 WBC 9.45 (4.0-11.0) K/uL RBC 4.31 (4.30-5.90) M/uL Hgb 13.3 (12.0-16.0) g/dL Hct 39.2 (36.0-46.0) % MCV 91.0 (80.0-98.0) fL MCH 30.9 (27.0-32.0) pg MCHC 33.9 (31.0-37.0) g/dL RDW Std Deviation 54.7 (28.0-62.0) fl RDW Coeff of Ej 16 H (11.0-15.0) % Plt Count 185 (150-400) K/uL MPV 10.00 (7.40-12.00) fL Neut % (Auto) 73.5 (48.0-80.0) % Lymph % (Auto) 18.4 (16.0-40.0) % Ness % (Auto) 7.1 (0.0-15.0) % Eos % (Auto) 0.8 (0.0-7.0) % Baso % (Auto) 0.2 (0.0-1.5) % Neut # (Auto) 6.9 H (1.4-5.7) K/uL Lymph # (Auto) 1.7 (0.6-2.4) K/uL Ness # (Auto) 0.7 (0.0-0.8) K/uL Eos # (Auto) 0.1 (0.0-0.7) K/uL Baso # (Auto) 0.0 (0.0-0.1) K/uL Nucleated RBC % 0.0 /100WBC Nucleated RBCs # 0 K/uL Sodium 134 L (136-145) mmol/L Potassium 3.6 (3.5-5.1) mmol/L Chloride 98 (98-107) mmol/L Carbon Dioxide 25.2 (21.0-32.0) mmol/L BUN 13 (7.0-18.0) mg/dL Creatinine 0.8 (0.6-1.0) mg/dL Est Cr Clr Drug Dosing 60.62 mL/min Estimated GFR (MDRD) > 60.0 ml/min Glucose 164 H (74-106) mg/dL Calcium 9.8 (8.5-10.1) mg/dL Total Bilirubin 1.5 H (0.2-1.0) mg/dL AST 33 (15-37) IU/L ALT 29 (14-63) IU/L Alkaline Phosphatase 251 H (46-116) U/L Total Protein 7.0 (6.4-8.2) g/dL Albumin 3.2 L (3.4-5.0) g/dL Globulin 3.8 (2.6-4.0) g/dL Albumin/Globulin Ratio 0.8 L (0.9-1.6) Meds: Medications Generic Name Dose Route Start Last Admin Trade Name Freq PRN Reason Stop Dose Admin Heparin Sodium (Porcine) 500 units 05/29/19 18:19 05/29/19 18:23 Heparin Lock Flush 100 Units/Ml FLUSH 500 units ASDIRECTED PRN Administration Other Sodium Chloride 10 ml 05/29/19 15:17 Saline Flush FLUSH ASDIRECTED PRN Keep Vein Open Sodium Chloride 2.5 ml 05/29/19 15:17 Saline Flush FLUSH ASDIRECTED PRN Keep Vein Open Discontinued Medications Generic Name Dose Route Start Last Admin Trade Name Marshall PRN Reason Stop Dose Admin Heparin Sodium (Porcine) Confirm 05/29/19 18:21 Heparin Lock Flush 100 Units/Ml Administered 05/29/19 18:22 Dose 500 units .ROUTE .STK-MED ONE Sodium Chloride 1,000 mls @ 999 mls/hr 05/29/19 15:17 05/29/19 15:39 Normal Saline IV 05/29/19 16:17 999 mls/hr STAT ONE Administration Ondansetron HCl 4 mg 05/29/19 15:33 05/29/19 15:39 Zofran IVPUSH 05/29/19 15:34 4 mg ONETIME ONE Administration Departure - Departure Time of Disposition: 18:34 Disposition: Home, Self-Care 01 Condition: Good Clinical Impression: Constipation - Discharge Information Instructions: Constipation, Adult Referrals: PCP,Unknown [Primary Care Provider] - Forms: ED Department Discharge Additional Instructions: The following information is given to patients seen in the emergency department who are being discharged to home. This information is to outline your options for follow-up care. We provide all patients seen in our emergency department with a follow-up referral. The need for follow-up, as well as the timing and circumstances, are variable depending upon the specifics of your emergency department visit. If you don't have a primary care physician on staff, we will provide you with a referral. We always advise you to contact your personal physician following an emergency department visit to inform them of the circumstance of the visit and for follow-up with them and/or the need for any referrals to a consulting specialist. The emergency department will also refer you to a specialist when appropriate. This referral assures that you have the opportunity for follow-up care with a specialist. All of these measure are taken in an effort to provide you with optimal care, which includes your follow-up. Under all circumstances we always encourage you to contact your private physician who remains a resource for coordinating your care. When calling for follow-up care, please make the office aware that this follow-up is from your recent emergency room visit. If for any reason you are refused follow-up, please contact the [facility] Emergency Department at and asked to speak to the emergency department charge nurse. [facility] [address] [place] [id number] [facility] [address] [place] [id number] Take miralax as instructed and drink plenty of fluids Follow up with primary care provider Return to ED as needed as discussed - My Orders Last 24 Hours: My Active Orders 05/29/19 15:16 Saline Lock Insert [OM.PC] Stat 05/29/19 15:17 Sodium Chloride 0.9% [Saline Flush] 10 ml FLUSH ASDIRECTED PRN Sodium Chloride 0.9% [Saline Flush] 2.5 ml FLUSH ASDIRECTED PRN 05/29/19 18:19 Heparin Sodium [Heparin Lock Flush 100 Units/ML] 500 units FLUSH ASDIRECTED PRN - Assessment/Plan Last 24 Hours: My Active Orders 05/29/19 15:16 Saline Lock Insert [OM.PC] Stat 05/29/19 15:17 Sodium Chloride 0.9% [Saline Flush] 10 ml FLUSH ASDIRECTED PRN Sodium Chloride 0.9% [Saline Flush] 2.5 ml FLUSH ASDIRECTED PRN 05/29/19 18:19 Heparin Sodium [Heparin Lock Flush 100 Units/ML] 500 units FLUSH ASDIRECTED PRN
[2019-05-29] MEDS ORDERED: Ondansetron 4 MG/2 ML SDV IVPUSH ONE (15:33)
[2019-05-29 16:04] LABS: CHLORIDE,CL 98 mmol/L (98-107); SODIUM,NA 134 mmol/L (136-145)
--- NOTE | 2019-05-29 17:07 | CR ---
INDICATION: abdominal pain, no bowel movement since 6 days ago. TECHNIQUE: Abdominal radiograph 2 views COMPARISON: None FINDINGS: Moderate degradation of image quality noted due to body habitus. Bowel: The bowel gas pattern is normal without evidence of bowel obstruction. Soft tissue: No evidence of pneumoperitoneum present. No suspicious calcifications noted. Left pelvic phleboliths are noted. Surgical clips are noted in the right upper quadrant from prior cholecystectomy. Bone: Unremarkable for age. IMPRESSION: 1. Unremarkable appearance of the visualized abdomen. Dictated by: Jarret Quinteros MD @ 05/29/2019 17:06:25 (Electronically Signed)
[2019-05-29 18:55] VITALS: BP 149/91
== END 2019-05-29 18:23 | disposition home or self-care (01) ==
LOC: MW.ED 15:01
DX: K59.00 Constipation, unspecified (principal); E78.00 Pure hypercholesterolemia, unspecified; I10 Essential (primary) hypertension; K21.9 Gastro-esophageal reflux disease without esophagitis; E11.9 Type 2 diabetes mellitus without complications; Z98.890 Other specified postprocedural states; Z79.899 Other long term (current) drug therapy; Z88.1 Allergy status to other antibiotic agents; Z79.4 Long term (current) use of insulin; Z88.8 Allergy status to other drugs, medicaments and biological substances; Z91.018 Allergy to other foods; Z90.49 Acquired absence of other specified parts of digestive tract; Z88.5 Allergy status to narcotic agent; Z90.710 Acquired absence of both cervix and uterus; Z90.722 Acquired absence of ovaries, bilateral
CPT/HCPCS: 36415; 74018; 80053; 85025; 96361; 96374; 99284; J1642; J2405; J7040

== ENCOUNTER 2019-11-01 04:07 | Emergency (ER) | payer OTHER ==
--- NOTE | 2019-11-01 04:15 | EDM.PDOC ---
ED HPI GENERAL MEDICAL PROBLEM - General Chief Complaint: Abdominal Pain Stated Complaint: AMB Time Seen by Provider: 11/01/19 04:12 - History of Present Illness INITIAL COMMENTS - FREE TEXT/NARRATIVE: HISTORY AND PHYSICAL: History of present illness: The patient is a 59-year-old female with a history of type 2 diabetes hypertension pacemaker and colon cancer stage IV for which she was just started on a new oral chemo about 1 week ago and who presents via EMS for abdominal pain. Patient is followed in our oncology clinic. She says that the oncology doctor is managing her pain and she does have oral Dilaudid that she takes for pain but says that only she tends to take it when the pain is really bad. She has not had vomiting but did have nausea and received Zofran from EMS in route and that nausea has now gone. She says the pain is all over her abdomen more in the center but she is having bowel movements which are loose but not watery and not black or bloody. She has no flank pain or urinary complaints. She has no chest pain or shortness of breath no fevers no chills or upper respiratory symptoms. During the course of her colon cancer history she has had bowel resections and IV chemo and according to her this oral chemo that she started 1 week ago is a last ditch effort. She says that when she started the oral chemo the pain started soon thereafter although she always has some low-grade pain and it seems to have gotten worse in the last 1 week with the new chemotherapy. She has not discussed this pain or the increasing pain or her lack of adequate pain management with her provider in the clinic. The patient did have CT scan of the chest abdomen and pelvis here on September 20 and I have reviewed those results. The CT of the chest showed only nodules 1 of which seems slightly larger and the abdomen and pelvis showed cholecystectomy changes and several liver masses 2 of which were increasing in size a left renal cyst and abdominal wall masses which were several in quantity 2 of which seem to be increasing in size. Review of systems: As per history of present illness and below otherwise all systems reviewed and negative. Past medical history: As per history of present illness and as reviewed below otherwise noncontributory. Surgical history: As per history of present illness and as reviewed below otherwise noncontributory. Social history: No reported history of drug or alcohol abuse. Family history: As per history of present illness and as reviewed below otherwise noncontributory. Physical exam: General: Well-developed well-nourished female who moves easily in the ED without distress and is somewhat sad and tearful telling me that she does not want to . She is nontoxic and vital signs are noted by me HEENT: Atraumatic, normocephalic, pupils reactive, negative for conjunctival pallor or scleral icterus, mucous membranes moist, throat clear, neck supple, nontender, trachea midline. Lungs: Clear to auscultation, breath sounds equal bilaterally, chest nontender. The patient has a port in her left upper chest wall Heart: S1S2, regular, negative for clicks, rubs, or JVD. Abdomen: Soft, nondistended, bowel sounds are very hypoactive but there is no tympany on percussion and there is a midline well-healed abdominal scar. There is diffuse abdominal tenderness which is mild in character but in the periumbilical area near the scar there is more tenderness and fullness appreciated with some firmness but there is no rebound or guarding.. Negative for masses or hepatosplenomegaly. Negative for costovertebral tenderness. Pelvis: Stable nontender. Genitourinary: Deferred. Rectal: Deferred. Extremities: Atraumatic, negative for cords or calf pain. Neurovascular unremarkable. Neuro: Awake, alert, oriented. Cranial nerves II through XII unremarkable. Cerebellum unremarkable. Motor and sensory unremarkable throughout. Exam nonfocal. Diagnostics: CBC CMP amylase lipase lactic acid UA with reflex CT scan of the abdomen and pelvis Therapeutics: IV fluids, Dilaudid, patient received Zofran from EMS Ativan Today's labs were compared to prior and the patient's BUN and creatinine have bumped as today they were 38/1.6 and the patient normally is 10-11/0.9-1.0. The patient's bilirubin is also up today at 1.8 but the remainder of her LFTs are improved and her highest bili in the past was 1.3. I discussed today's lab and CT scan findings with the patient and at bedside. The patient does get improvement with the Dilaudid but is saying that the pain is coming back. I discussed with her that her home pain management needs to be readdressed by her clinic provider because this is a chronic pain management issue that is not being well controlled in light of her increased size of her abdominal wall lesions. I stressed the need to connect with the clinic provider today who is in the office and to discuss her pain management options and choices and possible changes to the dosing regimen or to the agents that she has. This is going to be a long-term problem that is not appropriate for the ED to adjust or manage. She and state understanding Impression: Acute on chronic abdominal pain with history of stage IV colon cancer with liver and abdominal wall metastasis Definitive disposition and diagnosis as appropriate pending reevaluation and review of above. abdomen Pain Score (Numeric/FACES): 10 - Related Data Allergies Allergy/AdvReac Type Severity Reaction Status Date / Time hydrocodone Allergy Unknown Hives Verified 11/01/19 04:08 ibuprofen Allergy Unknown Hives Verified 11/01/19 04:08 morphine Allergy Unknown Seizure Verified 11/01/19 04:08 nitroglycerin Allergy Unknown Difficulty Verified 11/01/19 04:08 Breathing caffeine Allergy Vomiting Verified 11/01/19 04:08 diphenhydramine HCl Allergy Excitabilit Verified 11/01/19 04:08 [From Benadryl] y Home Meds: Home Meds metFORMIN [Glucophage] 1,000 mg PO BIDMEALS 05/09/14 [History] LORazepam [Ativan] 1 mg PO BEDTIME PRN 12/26/15 [History] Insulin Glarg,Human.Rec.Analog [LantUS Solostar] 34 units SUBCUT BID 08/06/17 [ History] Pantoprazole [ProTONIX] 40 mg PO DAILY 08/06/17 [History] Insulin Aspart [NovoLOG] 14 unit SUBCUT TIDAC 02/04/18 [History] Loperamide [Imodium] 2 mg PO ASDIRECTED PRN MDD loose stool 07/20/18 [History] Estrogens, Conjugated [Premarin Vaginal Crm] 0.5 gram VAG ASDIRECTED 03/01/19 [ History] Loratadine [Claritin] 10 mg PO ASDIRECTED PRN 03/01/19 [History] atorvaSTATin Calcium [Lipitor] 80 mg PO DAILY 03/01/19 [History] Valsartan 160 mg PO DAILY 30 Days #30 tablet 03/02/19 [Rx] hydroCHLOROthiazide [Hydrochlorothiazide] 25 mg PO DAILY 30 Days #30 tablet [Rx] HYDROmorphone [Dilaudid] 2 mg PO Q4H PRN 11/01/19 [History] Ondansetron [Zofran ODT] 4 mg PO Q4HR PRN 11/01/19 [History] Trifluridine/Tipiracil HCl [Lonsurf 20 mg-8.19 mg Tablet] 1 each PO ASDIRECTED 11/01/19 [History] Past Medical History HEENT History: Reports: Impaired Vision Other HEENT History: wears glasses Cardiovascular History: Reports: High Cholesterol, Hypertension, Pacemaker Respiratory History: Reports: Pneumothorax Gastrointestinal History: Reports: GERD Other Gastrointestinal History: hernia, colon CA Genitourinary History: Reports: UTI, Recurrent [employer] 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: Reports: , Other (See Below) Other AC[employer] 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: x2 Musculoskeletal History: Reports: None Neurological History: Reports: None Psychiatric History: Reports: Anxiety, Depression Endocrine/Metabolic History: Reports: Diabetes, Type II Hematologic History: Reports: None Immunologic History: Reports: None Oncologic (Cancer) History: Reports: Colon, Liver, Metastatic Dermatologic History: Reports: None - Infectious Disease History Infectious Disease History: Reports: Measles, Other (See Below) Other Infectious Disease History: childhood - Past Surgical History HEENT Surgical History: Reports: Adenoidectomy, Tonsillectomy Cardiovascular Surgical History: Reports: None Respiratory Surgical History: Reports: Other (See Below) Other Respiratory Surgeries/Procedures: chest tube placements GI Surgical History: Reports: Cholecystectomy, Colon, Hernia Repair/Other Other GI Surgeries/Procedures: colectomy x2 Female Surgical History: Reports: Section, Hysterectomy, Salpingo- Oophorectomy Other Female Surgeries/Procedures: X2 Endocrine Surgical History: Reports: None Neurological Surgical History: Reports: None Musculoskeletal Surgical History: Reports: None, Other (See Below) Other Musculoskeletal Surgeries/Procedures:: rigth knee pain Oncologic Surgical History: Reports: Other (See Below) Other Oncologic Surgeries/Procedures: presently on chemo treatment last done on 01/20/19 Dermatological Surgical History: Reports: None Social & Family History - Family History Family Medical History: Noncontributory GI: Reports: None - Caffeine Use Caffeine Use: Reports: None Caffeine Use Comment: allergic to caffeine ED ROS GENERAL - Review of Systems Review Of Systems: Comprehensive ROS is negative, except as noted in HPI. ED EXAM, GENERAL - Physical Exam Exam: See Below (See dictation) Course - Vital Signs Last Recorded V/S: Last Vital Signs Temp 36.5 C 11/01/19 07:05 Pulse 82 11/01/19 07:05 Resp 18 11/01/19 07:05 BP 132/67 11/01/19 07:05 Pulse Ox 98 11/01/19 07:05 - Orders/Labs/Meds Orders: Active Orders 24 hr Category Date Time Status CULTURE URINE [RM] Stat Lab 11/01/19 06:38 Received Sodium Chloride 0.9% [Normal Saline] 1,000 ml Med 11/01/19 04:30 Active IV ASDIRECTED Sodium Chloride 0.9% [Saline Flush] Med 11/01/19 04:27 Active 10 ml FLUSH ASDIRECTED PRN Sodium Chloride 0.9% [Saline Flush] Med 11/01/19 04:27 Active 2.5 ml FLUSH ASDIRECTED PRN Saline Lock Insert [OM.PC] Stat Oth 11/01/19 04:26 Ordered Medication Orders Sodium Chloride (Normal Saline) 1,000 mls @ 125 mls/hr IV ASDIRECTED MARIA T Last Admin: 11/01/19 04:39 Dose: 999 mls/hr Sodium Chloride (Saline Flush) 10 ml FLUSH ASDIRECTED PRN PRN Reason: Keep Vein Open Sodium Chloride (Saline Flush) 2.5 ml FLUSH ASDIRECTED PRN PRN Reason: Keep Vein Open Labs: Laboratory Tests 11/01/19 11/01/19 11/01/19 Range/Units 04:30 04:30 04:30 WBC 7.56 (4.0-11.0) K/uL RBC 4.43 (4.30-5.90) M/uL Hgb 14.2 (12.0-16.0) g/dL Hct 39.9 (36.0-46.0) % MCV 90.1 (80.0-98.0) fL MCH 32.1 H (27.0-32.0) pg MCHC 35.6 (31.0-37.0) g/dL RDW Std Deviation 47.2 (28.0-62.0) fl RDW Coeff of Ej 14 (11.0-15.0) % Plt Count 151 (150-400) K/uL MPV 9.40 (7.40-12.00) fL Neut % (Auto) 79.7 (48.0-80.0) % Lymph % (Auto) 16.1 (16.0-40.0) % Atlantic % (Auto) 3.7 (0.0-15.0) % Eos % (Auto) 0.4 (0.0-7.0) % Baso % (Auto) 0.1 (0.0-1.5) % Neut # (Auto) 6.0 H (1.4-5.7) K/uL Lymph # (Auto) 1.2 (0.6-2.4) K/uL Atlantic # (Auto) 0.3 (0.0-0.8) K/uL Eos # (Auto) 0.0 (0.0-0.7) K/uL Baso # (Auto) 0.0 (0.0-0.1) K/uL Nucleated RBC % 0.0 /100WBC Nucleated RBCs # 0 K/uL Lactate 1.7 (0.20-2.00) mmol/L Sodium 133 L (136-145) mmol/L Potassium 3.7 (3.5-5.1) mmol/L Chloride 94 L (98-107) mmol/L Carbon Dioxide 28.5 (21.0-32.0) mmol/L BUN 38 H (7.0-18.0) mg/dL Creatinine 1.6 H (0.6-1.0) mg/dL Est Cr Clr Drug Dosing 30.31 mL/min Estimated GFR (MDRD) 33.1 ml/min Glucose 285 H (74-106) mg/dL Calcium 9.0 (8.5-10.1) mg/dL Total Bilirubin 1.8 H (0.2-1.0) mg/dL AST 39 H (15-37) IU/L ALT 40 (14-63) IU/L Alkaline Phosphatase 290 H (46-116) U/L Total Protein 8.0 (6.4-8.2) g/dL Albumin 3.7 (3.4-5.0) g/dL Globulin 4.3 H (2.6-4.0) g/dL Albumin/Globulin Ratio 0.9 (0.9-1.6) Amylase 67 (25-115) U/L Lipase 85 (73-393) U/L Urine Color Urine Appearance Urine pH (5.0-8.0) Ur Specific Stevenson (1.001-1.035) Urine Protein (NEGATIVE) mg/dL Urine Glucose (UA) (NEGATIVE) mg/dL Urine Ketones (NEGATIVE) mg/dL Urine Occult Blood (NEGATIVE) Urine Nitrite (NEGATIVE) Urine Bilirubin (NEGATIVE) Urine Urobilinogen (<2.0) EU/dL Ur Leukocyte Esterase (NEGATIVE) Urine RBC (0-2/HPF) Urine WBC (0-5/HPF) Ur Epithelial Cells (NONE-FEW) Ur Renal Epithelial Cell Urine Bacteria (NEGATIVE) 11/01/19 Range/Units 06:38 WBC (4.0-11.0) K/uL RBC (4.30-5.90) M/uL Hgb (12.0-16.0) g/dL Hct (36.0-46.0) % MCV (80.0-98.0) fL MCH (27.0-32.0) pg MCHC (31.0-37.0) g/dL RDW Std Deviation (28.0-62.0) fl RDW Coeff of Ej (11.0-15.0) % Plt Count (150-400) K/uL MPV (7.40-12.00) fL Neut % (Auto) (48.0-80.0) % Lymph % (Auto) (16.0-40.0) % Atlantic % (Auto) (0.0-15.0) % Eos % (Auto) (0.0-7.0) % Baso % (Auto) (0.0-1.5) % Neut # (Auto) (1.4-5.7) K/uL Lymph # (Auto) (0.6-2.4) K/uL Atlantic # (Auto) (0.0-0.8) K/uL Eos # (Auto) (0.0-0.7) K/uL Baso # (Auto) (0.0-0.1) K/uL Nucleated RBC % /100WBC Nucleated RBCs # K/uL Lactate (0.20-2.00) mmol/L Sodium (136-145) mmol/L Potassium (3.5-5.1) mmol/L Chloride (98-107) mmol/L Carbon Dioxide (21.0-32.0) mmol/L BUN (7.0-18.0) mg/dL Creatinine (0.6-1.0) mg/dL Est Cr Clr Drug Dosing mL/min Estimated GFR (MDRD) ml/min Glucose (74-106) mg/dL Calcium (8.5-10.1) mg/dL Total Bilirubin (0.2-1.0) mg/dL AST (15-37) IU/L ALT (14-63) IU/L Alkaline Phosphatase (46-116) U/L Total Protein (6.4-8.2) g/dL Albumin (3.4-5.0) g/dL Globulin (2.6-4.0) g/dL Albumin/Globulin Ratio (0.9-1.6) Amylase (25-115) U/L Lipase (73-393) U/L Urine Color YELLOW Urine Appearance CLEAR Urine pH 7.0 (5.0-8.0) Ur Specific Stevenson 1.020 (1.001-1.035) Urine Protein NEGATIVE (NEGATIVE) mg/dL Urine Glucose (UA) NEGATIVE (NEGATIVE) mg/dL Urine Ketones NEGATIVE (NEGATIVE) mg/dL Urine Occult Blood NEGATIVE (NEGATIVE) Urine Nitrite NEGATIVE (NEGATIVE) Urine Bilirubin NEGATIVE (NEGATIVE) Urine Urobilinogen 1.0 (<2.0) EU/dL Ur Leukocyte Esterase TRACE H (NEGATIVE) Urine RBC 0-2 (0-2/HPF) Urine WBC 1-4 (0-5/HPF) Ur Epithelial Cells FEW (NONE-FEW) Ur Renal Epithelial Cell RARE Urine Bacteria FEW (NEGATIVE) Meds: Medications Generic Name Dose Route Start Last Admin Trade Name Freq PRN Reason Stop Dose Admin Sodium Chloride 1,000 mls @ 125 mls/hr 11/01/19 04:30 11/01/19 04:39 Normal Saline IV 999 mls/hr ASDIRECTED MARIA T Administration Sodium Chloride 10 ml 11/01/19 04:27 Saline Flush FLUSH ASDIRECTED PRN Keep Vein Open Sodium Chloride 2.5 ml 11/01/19 04:27 Saline Flush FLUSH ASDIRECTED PRN Keep Vein Open Discontinued Medications Generic Name Dose Route Start Last Admin Trade Name Freq PRN Reason Stop Dose Admin Hydromorphone HCl 1 mg 11/01/19 04:27 11/01/19 04:39 Dilaudid IVPUSH 11/01/19 04:28 1 mg ONETIME ONE Administration Hydromorphone HCl 1 mg 11/01/19 05:54 11/01/19 06:08 Dilaudid IVPUSH 11/01/19 05:55 1 mg ONETIME ONE Administration Hydromorphone HCl Confirm 11/01/19 05:56 11/01/19 06:22 Dilaudid Administered 11/01/19 05:57 Not Given Dose 1 mg .ROUTE .STK-MED ONE Lorazepam 0.5 mg 11/01/19 06:18 11/01/19 06:27 Ativan IVPUSH 11/01/19 06:19 0.5 mg ONETIME ONE Administration Departure - Departure Time of Disposition: 07:09 Disposition: Home, Self-Care 01 Condition: Good Clinical Impression: Abdominal pain, Metastatic cancer - Discharge Information Instructions: Abdominal Pain, Adult, [id number] Referrals: PCP,None [Primary Care Provider] - Forms: ED Department Discharge Additional Instructions: The following information is given to patients seen in the emergency department who are being discharged to home. This information is to outline your options for follow-up care. We provide all patients seen in our emergency department with a follow-up referral. The need for follow-up, as well as the timing and circumstances, are variable depending upon the specifics of your emergency department visit. If you don't have a primary care physician on staff, we will provide you with a referral. We always advise you to contact your personal physician following an emergency department visit to inform them of the circumstance of the visit and for follow-up with them and/or the need for any referrals to a consulting specialist. The emergency department will also refer you to a specialist when appropriate. This referral assures that you have the opportunity for followup care with a specialist. All of these measure are taken in an effort to provide you with optimal care, which includes your followup. Under all circumstances we always encourage you to contact your private physician who remains a resource for coordinating your care. When calling for followup care, please make the office aware that this follow-up is from your recent emergency room visit. If for any reason you are refused follow-up, please contact the [facility] emergency department at and ask to speak to the emergency department charge nurse. RANDALL [facility] Primary care- Internal Medicine and Family [place] [id number] [place] [id number] Please call and connect with your provider in the oncology clinic to discuss your pain regimen and management as this needs adjustment to help better control this increasing pain as this will continue to be an ongoing problem. Push hydration and use all of your other home medications as previously. Return to ER as needed and as discussed Sepsis Event Note - Evaluation Sepsis Screening Result: No Definite Risk - Focused Exam Vital Signs: Vital Signs Temp Pulse Resp BP Pulse Ox 11/01/19 07:05 36.5 C 82 18 132/67 98 11/01/19 06:00 74 18 140/78 98 11/01/19 04:08 36.4 C 78 20 142/81 H 100 Date Exam was Performed: 11/01/19 Time Exam was Performed: 07:09 - My Orders Last 24 Hours: My Active Orders 11/01/19 04:26 Saline Lock Insert [OM.PC] Stat 11/01/19 04:27 Sodium Chloride 0.9% [Saline Flush] 10 ml FLUSH ASDIRECTED PRN Sodium Chloride 0.9% [Saline Flush] 2.5 ml FLUSH ASDIRECTED PRN 11/01/19 04:30 Sodium Chloride 0.9% [Normal Saline] 1,000 ml IV ASDIRECTED 11/01/19 06:38 CULTURE URINE [RM] Stat - Assessment/Plan Last 24 Hours: My Active Orders 11/01/19 04:26 Saline Lock Insert [OM.PC] Stat 11/01/19 04:27 Sodium Chloride 0.9% [Saline Flush] 10 ml FLUSH ASDIRECTED PRN Sodium Chloride 0.9% [Saline Flush] 2.5 ml FLUSH ASDIRECTED PRN 11/01/19 04:30 Sodium Chloride 0.9% [Normal Saline] 1,000 ml IV ASDIRECTED 11/01/19 06:38 CULTURE URINE [RM] Stat
[2019-11-01] MEDS ORDERED: HYDROmorphone 1 MG/ML Syringe IVPUSH ONE ×2 (04:27→05:54)
[2019-11-01] MEDS ORDERED: Sodium Chloride 0.9% 10 ML Syringe FLUSH PRN (04:27)
[2019-11-01] MEDS ORDERED: Sodium Chloride 0.9% 2.5 ML Syringe FLUSH PRN (04:27)
[2019-11-01] MEDS ORDERED: Sodium Chloride 0.9% 1,000 ML IV SCH ×2 (04:30→07:30)
[2019-11-01 04:57] LABS: CARBON DIOXIDE,CO2 28.5 mmol/L (21.0-32.0); POTASSIUM,K 3.7 mmol/L (3.5-5.1)
[2019-11-01] MEDS ORDERED: HYDROmorphone 1 MG/ML Syringe ONE (05:56)
--- NOTE | 2019-11-01 05:58 | CT ---
INDICATION: Abdominal pain, metastatic colon cancer TECHNIQUE: CT abdomen and pelvis without contrast. COMPARISON: September 20, 2019 FINDINGS: Lower chest: The lung bases are clear. Pacemaker device noted. Liver: Multiple hypodense hepatic lesions again noted. The largest of these measures 2.0 cm, previously 1.6 cm. Punctate calcified granulomata. Spleen: Punctate calcified granulomata. Pancreas: Unremarkable. Gallbladder and bile ducts: S/p cholecystectomy. Adrenal glands: Unremarkable. Kidneys: Unremarkable. No kidney or ureteral stones and no hydronephrosis. GI tract: Anastomotic suture in the distal descending colon. Appendix is normal. Vascular structures: Moderate atherosclerotic disease. Lymph nodes: Unremarkable. Miscellaneous: Soft tissue masses along the anterior abdominal wall are minimally increased in size. For example, 2.3 cm soft tissue mass posterior to the left rectus muscle on image 89 series 201 previously measured 2.0 cm. There is some ill-defined soft tissue density to the left side of the superior aspect of the urinary bladder measuring approximately 4.7 x 3.0 cm, stable. Spiculated mesenteric soft tissue densities are stable compared to the prior study, best seen on image 69 series 201. Pelvic Organs: Unremarkable. Bones: Unremarkable for age. IMPRESSION: Slight interval increase in size of a few of the hepatic lesions and soft tissue masses along the anterior abdominal wall consistent with worsening metastatic disease. No acute intra-abdominal inflammatory process identified. Anastomotic suture in the distal descending colon. Status post cholecystectomy. Please note that all CT scans at this facility use dose modulation, iterative reconstruction, and/or weight-based dosing when appropriate to reduce radiation dose to as low as reasonably achievable. Dictated by Ailin Steven MD @ Nov 01 2019 5:51AM Signed by Dr. Ailin Steven @ Nov 01 2019 5:57AM
[2019-11-01] MEDS ORDERED: LORazepam 2 MG/ML SDV IVPUSH ONE (06:18)
[2019-11-01 07:39] VITALS: BP 119/94; PULSE 85
== END 2019-11-01 07:39 | disposition home or self-care (01) ==
LOC: MW.ED 04:07
DX: G89.3 Neoplasm related pain (acute) (chronic) (principal); C18.9 Malignant neoplasm of colon, unspecified; C78.7 Secondary malignant neoplasm of liver and intrahepatic bile duct; I10 Essential (primary) hypertension; E78.00 Pure hypercholesterolemia, unspecified; K21.9 Gastro-esophageal reflux disease without esophagitis; F41.9 Anxiety disorder, unspecified; F32.9 Major depressive disorder, single episode, unspecified; Z88.8 Allergy status to other drugs, medicaments and biological substances; Z88.5 Allergy status to narcotic agent; Z79.4 Long term (current) use of insulin; Z79.899 Other long term (current) drug therapy; Z90.49 Acquired absence of other specified parts of digestive tract
CPT/HCPCS: 36415; 74176; 80053; 81001; 82150; 83605; 83690; 85025; 87086; 96361; 96374; 96375; 96376; 99285; J1170; J2060; J7030; 99284

== ENCOUNTER 2019-11-01 15:22 | Inpatient (IN) | payer OTHER ==
[2019-11-01] MEDS ORDERED: Docusate Sodium 100 MG Cap PO PRN (15:48)
[2019-11-01] MEDS ORDERED: Sodium Chloride 0.9% 500 ML IV SCH (16:00)
[2019-11-01] MEDS: HYDROmorphone 2 MG/ML Syringe IVPUSH PRN ×3 (16:18→22:40)
[2019-11-01] MEDS: Sodium Chloride 0.9% 1,000 ML IV SCH (16:20)
--- NOTE | 2019-11-01 16:23 | PCM.HP.2 ---
H&P History of Present Illness - General Date of Service: 11/01/19 Admit Problem/Dx: Admission Diagnosis/Problem Admission Diagnosis/Problem Nausea and vomiting Source of Information: Patient, Old Records History Limitations: Reports: No Limitations - History of Present Illness Initial Comments - Free Text/Narative: This 59 year old female with pmh of stage IV metastatic colon can, mets to liver , peritonem, and abdominal wall, HTN, CAD, DM Type 2, and pacemaker presented today to Oncology Telemedicine clinic. She was seen in the ED early this morning due to worsening abdominal pain and N/V. She was given pain medication IV, IVFs and zofran. She was discharged home to follow up with Oncology regarding pain control. She reports she has continued to not be able to keep pain medications down along with not keeping fluids down. Dr Cho called for direct admission for dehydration, LUCI and worsening abdominal pain, in durga of worsening metastatic disease on CT this morning. SHe denies fevers or chills, no chest pain or SOB. she reports it is hard to take a deep breath due to abdominal pain. No diarrhea or constipation. No urinary concerns. She recently started a PO chemotherapy 1 week ago and pain has since increased after this. She take Dilaudid PO at home, which normally takes care of cancer related pain. In the ED this morning, CBC WNL. Lactic acid 1.7. Na 133, K+ 3.7, Cl 94, BUN 38 and Cr 1.6, which is elevated from baseline or 10/0.8 respectively. Bilirubin 1.8, AST 39, ALT 40 alk phos 290. She will be admitted for intractable pain, N/V, dehydration and LUCI. - Related Data Allergies/Adverse Reactions: Allergies Allergy/AdvReac Type Severity Reaction Status Date / Time hydrocodone Allergy Unknown Hives Verified 11/01/19 04:08 ibuprofen Allergy Unknown Hives Verified 11/01/19 04:08 morphine Allergy Unknown Seizure Verified 11/01/19 04:08 nitroglycerin Allergy Unknown Difficulty Verified 11/01/19 04:08 Breathing caffeine Allergy Vomiting Verified 11/01/19 04:08 diphenhydramine HCl Allergy Excitabilit Verified 11/01/19 04:08 [From Benadryl] y Home Medications: Home Meds metFORMIN [Glucophage] 1,000 mg PO BIDMEALS 05/09/14 [History] LORazepam [Ativan] 1 mg PO BEDTIME PRN 12/26/15 [History] Insulin Glarg,Human.Rec.Analog [LantUS Solostar] 34 units SUBCUT BID 08/06/17 [ History] Pantoprazole [ProTONIX] 40 mg PO DAILY 08/06/17 [History] Insulin Aspart [NovoLOG] 14 unit SUBCUT TIDAC 02/04/18 [History] Loperamide [Imodium] 2 mg PO ASDIRECTED PRN MDD loose stool 07/20/18 [History] Estrogens, Conjugated [Premarin Vaginal Crm] 0.5 gram VAG ASDIRECTED 03/01/19 [ History] Loratadine [Claritin] 10 mg PO ASDIRECTED PRN 03/01/19 [History] atorvaSTATin Calcium [Lipitor] 80 mg PO DAILY 03/01/19 [History] Valsartan 160 mg PO DAILY 30 Days #30 tablet 03/02/19 [Rx] hydroCHLOROthiazide [Hydrochlorothiazide] 25 mg PO DAILY 30 Days #30 tablet [Rx] HYDROmorphone [Dilaudid] 2 mg PO Q4H PRN 11/01/19 [History] Ondansetron [Zofran ODT] 4 mg PO Q4HR PRN 11/01/19 [History] Trifluridine/Tipiracil HCl [Lonsurf 20 mg-8.19 mg Tablet] 1 each PO ASDIRECTED 11/01/19 [History] Past Medical History HEENT History: Reports: Impaired Vision Other HEENT History: wears glasses Cardiovascular History: Reports: High Cholesterol, Hypertension, Pacemaker Respiratory History: Reports: Pneumothorax Gastrointestinal History: Reports: GERD Other Gastrointestinal History: hernia, colon CA Genitourinary History: Reports: UTI, Recurrent ATOMIC SPECTROSCOPIST History: Reports: , Other (See Below) Other OB/BYN History: x2 Musculoskeletal History: Reports: None Neurological History: Reports: None Psychiatric History: Reports: Anxiety, Depression Endocrine/Metabolic History: Reports: Diabetes, Type II Hematologic History: Reports: None Immunologic History: Reports: None Oncologic (Cancer) History: Reports: Colon, Liver, Metastatic (liver, peritonem , and abdominal wall) Dermatologic History: Reports: None - Infectious Disease History Infectious Disease History: Reports: Measles, Other (See Below) Other Infectious Disease History: childhood - Past Surgical History HEENT Surgical History: Reports: Adenoidectomy, Tonsillectomy Cardiovascular Surgical History: Reports: None Respiratory Surgical History: Reports: Other (See Below) Other Respiratory Surgeries/Procedures: chest tube placements GI Surgical History: Reports: Cholecystectomy, Colon, Hernia Repair/Other Other GI Surgeries/Procedures: colectomy x2 Female Surgical History: Reports: Section, Hysterectomy, Salpingo- Oophorectomy Other Female Surgeries/Procedures: X2 Endocrine Surgical History: Reports: None Neurological Surgical History: Reports: None Musculoskeletal Surgical History: Reports: None, Other (See Below) Other Musculoskeletal Surgeries/Procedures:: rigth knee pain Oncologic Surgical History: Reports: Other (See Below) Other Oncologic Surgeries/Procedures: presently on chemo treatment last done on 01/20/19 Dermatological Surgical History: Reports: None Social & Family History - Family History Family Medical History: Noncontributory GI: Reports: None - Caffeine Use Caffeine Use: Reports: None Caffeine Use Comment: allergic to caffeine - Living Situation & Occupation Living situation: Reports: H&P Review of Systems - Review of Systems: Review Of Systems: See Below General: Reports: Malaise, Weakness. Denies: Fever, Chills HEENT: Reports: No Symptoms. Denies: Headaches, Sinus Congestion, Visual Changes Pulmonary: Reports: No Symptoms. Denies: Shortness of Breath, Cough Cardiovascular: Reports: No Symptoms. Denies: Chest Pain, Edema Gastrointestinal: Reports: Abdominal Pain (diffuse and in back), Decreased Appetite, Nausea, Vomiting. Denies: Black Stool, Bloody Stool, Constipation, Diarrhea Genitourinary: Reports: No Symptoms. Denies: Dysuria, Frequency, Burning Musculoskeletal: Reports: Back Pain. Denies: Neck Pain Skin: Reports: No Symptoms Psychiatric: Reports: No Symptoms Neurological: Reports: No Symptoms Hematologic/Lymphatic: Reports: No Symptoms Immunologic: Reports: No Symptoms Exam - Exam Exam: See Below - Exam General: Alert, Oriented, Cooperative HEENT: Conjunctiva Clear. No: Mucosa Moist & [place] (dry) Lungs: Clear to Auscultation, Normal Respiratory Effort Cardiovascular: Regular Rate, Regular Rhythm, Normal S1, Normal S2 GI/Abdominal Exam: Normal Bowel Sounds, Soft, Non-Tender Back Exam: Normal Inspection, Full Range of Motion Extremities: Normal Inspection, Normal Range of Motion, Non-Tender, No Pedal Edema Neuro Extensive - Mental Status: Alert, Oriented x3 Neuro Extensive - Motor, Sensory, Reflexes: CN II-XII Intact Psychiatric: Alert, Anxious - Problem List (1) Abdominal pain SNOMED Code(s): 73476580 ICD Code: R10.9 - UNSPECIFIED ABDOMINAL PAIN Status: Acute Current Visit : No (2) LUCI (acute kidney injury) SNOMED Code(s): 59515137, 17020420 ICD Code: N17.9 - ACUTE KIDNEY FAILURE, UNSPECIFIED Status: Acute Current Visit: Yes (3) Dehydration SNOMED Code(s): 59538284 ICD Code: E86.0 - DEHYDRATION Status: Acute Priority: High Current Visit: No (4) Pacemaker SNOMED Code(s): 909901105 ICD Code: Z95.0 - PRESENCE OF CARDIAC PACEMAKER Status: Chronic Current Visit: Yes (5) GERD (gastroesophageal reflux disease) SNOMED Code(s): 037281885 ICD Code: K21.9 - GASTRO-ESOPHAGEAL REFLUX DISEASE WITHOUT ESOPHAGITIS Status: Chronic Current Visit: No (6) Hypertension SNOMED Code(s): 84282148 ICD Code: I10 - ESSENTIAL (PRIMARY) HYPERTENSION Status: Chronic Current Visit: No Qualifiers: Hypertension type: unspecified Qualified Code(s): I10 - Essential (primary ) hypertension (7) Metastatic cancer SNOMED Code(s): 556696909 ICD Code: C79.9 - SECONDARY MALIGNANT NEOPLASM OF UNSPECIFIED SITE Status: Chronic Current Visit: No (8) Diabetes type 2, controlled SNOMED Code(s): 55620320, 712046554 ICD Code: E11.9 - TYPE 2 DIABETES MELLITUS WITHOUT COMPLICATIONS Status: Chronic Priority: High Current Visit: No Qualifiers: Diabetes mellitus penitentiary insulin use: without intermission coordinator use Diabetes mellitus complication status: without complication Qualified Code(s): E11.9 - Type 2 diabetes mellitus without complications Problem List Initiated/Reviewed/Updated: Yes Orders Last 24hrs: Active Orders 24 hr Category Date Time Status Patient Status [ADT] Routine ADT 11/01/19 15:48 Active Communication Order [RC] ROUTINE Care 11/01/19 15:52 Active Height and Weight [RC] DAILY Care 11/01/19 15:48 Active Intake and Output [RC] QSHIFT Care 11/01/19 15:49 Active Oxygen Therapy [RC] PRN Care 11/01/19 15:48 Active Up With Assistance [RC] ASDIRECTED Care 11/01/19 15:48 Active VTE/DVT Education [RC] PER UNIT ROUTINE Care 11/01/19 15:48 Active Vital Signs [RC] Q4H Care 11/01/19 15:48 Active Clear Liquid Diet [DIET] Diet 11/01/19 Dinner Active CBC WITH AUTO DIFF [HEME] AM Lab 11/02/19 05:11 Ordered COMPREHENSIVE METABOLIC PN,CMP [CHEM] AM Lab 11/02/19 05:11 Ordered MAGNESIUM [CHEM] AM Lab 11/02/19 05:11 Ordered Docusate Sodium [Colace] Med 11/01/19 15:48 Active 100 mg PO BID PRN HYDROmorphone [Dilaudid] Med 11/01/19 15:48 Active 1 mg IVPUSH Q3H PRN Ondansetron [Zofran] Med 11/01/19 15:48 Active 4 mg IVPUSH Q4H PRN Prochlorperazine [Compazine] Med 11/01/19 15:54 Active 10 mg IVPUSH Q6H PRN Sodium Chloride 0.9% [Normal Saline] 1,000 ml Med 11/01/19 16:00 Active IV ASDIRECTED Sodium Chloride 0.9% [Normal Saline] 500 ml Med 11/01/19 16:00 Active IV .BOLUS Resuscitation Status Routine Resus Stat 11/01/19 16:16 Ordered Medication Orders Docusate Sodium (Colace) 100 mg PO BID PRN PRN Reason: Constipation Hydromorphone HCl (Dilaudid) 1 mg IVPUSH Q3H PRN PRN Reason: Pain (severe 7-10) Sodium Chloride (Normal Saline) 1,000 mls @ 125 mls/hr IV ASDIRECTED MARIA T Sodium Chloride (Normal Saline) 500 mls @ 999 mls/hr IV .BOLUS MARIA T Ondansetron HCl (Zofran) 4 mg IVPUSH Q4H PRN PRN Reason: Nausea Prochlorperazine Edisylate (Compazine) 10 mg IVPUSH Q6H PRN PRN Reason: Nausea/Vomiting Assessment/Plan Comment:: This 59 year old female admitted with intractable pain, N/V and LUCI 1. Intractable pain: Worsening abdominal pain after no oral chemotherapy added, CT reveals increasing metastatic disease. Will give Dilaudid 1 mg IV every 3 hrs PRN pain. 2. N/V: Unable to keep meds down. no obstruction noted on CT this morning. CL diet for now with Zofran and Compazine for nausea PRN. Monitor electrolytes. Protonix daily. 3. LUCI/dehydration: 500 ml bolus now. NS 125 ml/hr overnight. Hold ARB. Monitor labwork in am. Hold nephrotoxic medications. 4. DM Type 2: Hold Po meds. Novolog SSI. Monitor TID AC 5. HTN: Stable. Will monitor with dehydration. Holding ARB. 6. Metastatic colon ca: Hold PO chemo per Dr Cho instruction. Discussed at length poor overall prognosis with patient in regards to worsening metastatic disease. Dr Cho relayed this PO chemo is the last option for treatment they have. We discussed code status. She become tearful, reporting she feels ready to , but she wants to be here for graduation of her daughter in February. As of now she is not ready to change code status to DNR. She will remain FULL CODE now. VTE prophylaxis: Heparin. Dispo: 2-3 days - Mortality Measure Prognosis:: Good
[2019-11-01] MEDS: Heparin Sodium 5,000 Units/ML Vial SUBCUT SCH (17:12)
[2019-11-01] MEDS: Pantoprazole 40 MG in Sodium Chloride 0.9% 10 ML IV SCH (17:12)
[2019-11-01] MEDS: Insulin Aspart 100 Units/ML 3 ML Pen SUBCUT SCH (18:05)
[2019-11-01] MEDS ORDERED: Insulin Detemir 100 Units/ML 3 ML Pen SUBCUT SCH (21:00)
[2019-11-01] MEDS: Insulin Glargine,Human Rec. Analog 100 Units/ML 3 ML Pen SUBCUT SCH (22:23)
[2019-11-02] MEDS: Sodium Chloride 0.9% 1,000 ML IV SCH ×3 (01:13→18:17)
[2019-11-02] MEDS: HYDROmorphone 2 MG/ML Syringe IVPUSH PRN ×7 (01:35→22:47)
[2019-11-02] MEDS: Ondansetron 4 MG/2 ML SDV IVPUSH PRN ×3 (01:46→12:32)
[2019-11-02] MEDS: Heparin Sodium 5,000 Units/ML Vial SUBCUT SCH ×2 (04:25→15:53)
[2019-11-02 06:42] LABS: CARBON DIOXIDE,CO2 24.8 mmol/L (21.0-32.0); POTASSIUM,K 3.1 mmol/L (3.5-5.1)
[2019-11-02] MEDS: Insulin Aspart 100 Units/ML 3 ML Pen SUBCUT SCH ×3 (07:06→17:24)
[2019-11-02] MEDS ORDERED: Sodium Chloride 0.9% with KCl 1,000 ML IV ONE (08:07)
[2019-11-02] MEDS ORDERED: Magnesium Sulfate/Water 4 GM in Premix Bag 1 BAG IV ONE (08:08)
--- NOTE | 2019-11-02 09:49 | PCM.PN ---
- General Info Date of Service: 11/02/19 Admission Dx/Problem (Free Text): Admission Diagnosis/Problem Admission Diagnosis/Problem Nausea and vomiting Subjective Update: still having pain today. Reports night was rough. Nausea a little better. No chest pain or SOB. Functional Status: Reports: Tolerating Diet (tolerating CL). Denies: Pain Controlled - Review of Systems General: Reports: No Symptoms. Denies: Fever, Weakness Pulmonary: Reports: No Symptoms. Denies: Shortness of Breath Cardiovascular: Reports: No Symptoms. Denies: Chest Pain Gastrointestinal: Reports: Abdominal Pain (diffuse), Nausea. Denies: Constipation, Diarrhea, Vomiting Genitourinary: Reports: No Symptoms. Denies: Dysuria, Frequency, Burning Skin: Reports: No Symptoms Neurological: Reports: No Symptoms Psychiatric: Reports: No Symptoms - Patient Data Vitals - Most Recent: Last Vital Signs Temp 97.5 F 11/02/19 08:00 Pulse 70 11/02/19 08:00 Resp 18 11/02/19 08:00 BP 116/75 11/02/19 08:00 Pulse Ox 98 11/02/19 08:00 Weight - Most Recent: 64.864 kg I&O - Last 24 Hours: Intake & Output 11/01/19 11/02/19 11/02/19 22:59 06:59 14:59 Intake Total 1900 Output Total 400 Balance 1500 Lab Results Last 24 Hours: Laboratory Results - last 24 hr 11/01/19 11/01/19 11/02/19 Range/Units 17:02 21:10 05:10 WBC 3.82 L (4.0-11.0) K/uL RBC 3.59 L (4.30-5.90) M/uL Hgb 11.5 L (12.0-16.0) g/dL Hct 32.6 L (36.0-46.0) % MCV 90.8 (80.0-98.0) fL MCH 32.0 (27.0-32.0) pg MCHC 35.3 (31.0-37.0) g/dL RDW Std Deviation 47.8 (28.0-62.0) fl RDW Coeff of Ej 14 (11.0-15.0) % Plt Count 109 L (150-400) K/uL MPV 9.20 (7.40-12.00) fL Neut % (Auto) 67.0 (48.0-80.0) % Lymph % (Auto) 27.2 (16.0-40.0) % Taylor % (Auto) 4.2 (0.0-15.0) % Eos % (Auto) 1.3 (0.0-7.0) % Baso % (Auto) 0.3 (0.0-1.5) % Neut # (Auto) 2.6 (1.4-5.7) K/uL Lymph # (Auto) 1.0 (0.6-2.4) K/uL Taylor # (Auto) 0.2 (0.0-0.8) K/uL Eos # (Auto) 0.1 (0.0-0.7) K/uL Baso # (Auto) 0.0 (0.0-0.1) K/uL Nucleated RBC % 0.0 /100WBC Nucleated RBCs # 0 K/uL Sodium (136-145) mmol/L Potassium (3.5-5.1) mmol/L Chloride (98-107) mmol/L Carbon Dioxide (21.0-32.0) mmol/L BUN (7.0-18.0) mg/dL Creatinine (0.6-1.0) mg/dL Est Cr Clr Drug Dosing mL/min Estimated GFR (MDRD) ml/min Glucose (74-106) mg/dL POC Glucose 209 H 211 H (60-110) mg/dL Calcium (8.5-10.1) mg/dL Magnesium (1.8-2.4) mg/dL Total Bilirubin (0.2-1.0) mg/dL AST (15-37) IU/L ALT (14-63) IU/L Alkaline Phosphatase (46-116) U/L Total Protein (6.4-8.2) g/dL Albumin (3.4-5.0) g/dL Globulin (2.6-4.0) g/dL Albumin/Globulin Ratio (0.9-1.6) 11/02/19 11/02/19 Range/Units 05:10 06:05 WBC (4.0-11.0) K/uL RBC (4.30-5.90) M/uL Hgb (12.0-16.0) g/dL Hct (36.0-46.0) % MCV (80.0-98.0) fL MCH (27.0-32.0) pg MCHC (31.0-37.0) g/dL RDW Std Deviation (28.0-62.0) fl RDW Coeff of Ej (11.0-15.0) % Plt Count (150-400) K/uL MPV (7.40-12.00) fL Neut % (Auto) (48.0-80.0) % Lymph % (Auto) (16.0-40.0) % Taylor % (Auto) (0.0-15.0) % Eos % (Auto) (0.0-7.0) % Baso % (Auto) (0.0-1.5) % Neut # (Auto) (1.4-5.7) K/uL Lymph # (Auto) (0.6-2.4) K/uL Taylor # (Auto) (0.0-0.8) K/uL Eos # (Auto) (0.0-0.7) K/uL Baso # (Auto) (0.0-0.1) K/uL Nucleated RBC % /100WBC Nucleated RBCs # K/uL Sodium 138 (136-145) mmol/L Potassium 3.1 L (3.5-5.1) mmol/L Chloride 103 (98-107) mmol/L Carbon Dioxide 24.8 (21.0-32.0) mmol/L BUN 21 H (7.0-18.0) mg/dL Creatinine 1.0 (0.6-1.0) mg/dL Est Cr Clr Drug Dosing 48.50 mL/min Estimated GFR (MDRD) 56.9 ml/min Glucose 147 H (74-106) mg/dL POC Glucose 143 H (60-110) mg/dL Calcium 8.0 L (8.5-10.1) mg/dL Magnesium 1.4 L (1.8-2.4) mg/dL Total Bilirubin 1.6 H (0.2-1.0) mg/dL AST 34 (15-37) IU/L ALT 32 (14-63) IU/L Alkaline Phosphatase 221 H (46-116) U/L Total Protein 6.0 L (6.4-8.2) g/dL Albumin 2.7 L (3.4-5.0) g/dL Globulin 3.3 (2.6-4.0) g/dL Albumin/Globulin Ratio 0.8 L (0.9-1.6) Med Orders - Current: Current Medications Docusate Sodium (Colace) 100 mg PO BID PRN PRN Reason: Constipation Last Admin: 11/01/19 17:11 Dose: 100 mg Heparin Sodium (Porcine) (Heparin Sodium) 5,000 units SUBCUT Q12H [facility] Last Admin: 11/02/19 04:25 Dose: 5,000 units Hydromorphone HCl (Dilaudid) 1 mg IVPUSH Q3H PRN PRN Reason: Pain (severe 7-10) Last Admin: 11/02/19 07:55 Dose: 1 mg Sodium Chloride (Normal Saline) 1,000 mls @ 125 mls/hr IV ASDIRECTED [facility] Last Admin: 11/02/19 08:06 Dose: 125 mls/hr Pantoprazole Sodium 40 mg/ (Sodium Chloride) 10 mls @ 300 mls/hr IV Q24H [facility] Last Admin: 11/01/19 17:12 Dose: 300 mls/hr Potassium Chloride/Sodium Chloride (Normal Saline With 40 Meq Kcl) 1,000 mls @ 150 mls/hr IV ONETIME ONE Stop: 11/02/19 14:46 Last Admin: 11/02/19 08:41 Dose: 150 mls/hr Magnesium Sulfate 4 gm/ Premix 100 mls @ 33.333 mls/hr IV ONETIME ONE Stop: 11/02/19 11:07 Last Admin: 11/02/19 08:41 Dose: 33.333 mls/hr Insulin Aspart (Novolog) 0 unit SUBCUT TIDAC [facility]; Protocol Last Admin: 11/02/19 07:06 Dose: Not Given Insulin Glargine (Lantus Solostar) 15 units SUBCUT BEDTIME [facility] Last Admin: 11/01/19 22:23 Dose: 15 units Ondansetron HCl (Zofran) 4 mg IVPUSH Q4H PRN PRN Reason: Nausea Last Admin: 11/02/19 07:56 Dose: 4 mg Prochlorperazine Edisylate (Compazine) 10 mg IVPUSH Q6H PRN PRN Reason: Nausea/Vomiting Discontinued Medications Sodium Chloride (Normal Saline) 500 mls @ 999 mls/hr IV .BOLUS [facility] Last Admin: 11/01/19 16:27 Dose: 999 mls/hr Insulin Detemir (Levemir) 15 unit SUBCUT BEDTIME [facility] Last Admin: 11/01/19 22:22 Dose: Not Given - Exam General: Alert, Oriented, Cooperative, No Acute Distress Lungs: Clear to Auscultation, Normal Respiratory Effort Cardiovascular: Regular Rate, Regular Rhythm GI/Abdominal Exam: Normal Bowel Sounds, Soft, Tender (diffusely), Hepatomegaly Extremities: Normal Inspection, Normal Range of Motion, Non-Tender Neurological: No New Focal Deficit Psy/Mental Status: Alert, Normal Affect, Normal Mood Sepsis Event Note - Evaluation Sepsis Screening Result: No Definite Risk - Focused Exam Vital Signs: Vital Signs Temp Pulse Resp BP Pulse Ox 11/02/19 08:00 97.5 F 70 18 116/75 98 11/02/19 03:45 97.1 F 73 19 136/73 100 11/02/19 00:00 97 F 70 16 115/68 97 Date Exam was Performed: 11/02/19 Time Exam was Performed: 12:57 - Problem List & Annotations (1) Abdominal pain SNOMED Code(s): 94901802 Code(s): R10.9 - UNSPECIFIED ABDOMINAL PAIN Status: Acute Current Visit: No (2) LUCI (acute kidney injury) SNOMED Code(s): 57482248, 26303470 Code(s): N17.9 - ACUTE KIDNEY FAILURE, UNSPECIFIED Status: Acute Current Visit: Yes (3) Dehydration SNOMED Code(s): 40336496 Code(s): E86.0 - DEHYDRATION Status: Acute Priority: High Current Visit : No (4) Pacemaker SNOMED Code(s): 576670960 Code(s): Z95.0 - PRESENCE OF CARDIAC PACEMAKER Status: Chronic Current Visit: Yes (5) GERD (gastroesophageal reflux disease) SNOMED Code(s): 681129799 Code(s): K21.9 - GASTRO-ESOPHAGEAL REFLUX DISEASE WITHOUT ESOPHAGITIS Status: Chronic Current Visit: No (6) Hypertension SNOMED Code(s): 82291210 Code(s): I10 - ESSENTIAL (PRIMARY) HYPERTENSION Status: Chronic Current Visit: No Qualifiers: Hypertension type: unspecified Qualified Code(s): I10 - Essential (primary ) hypertension (7) Metastatic cancer SNOMED Code(s): 206550285 Code(s): C79.9 - SECONDARY MALIGNANT NEOPLASM OF UNSPECIFIED SITE Status: Chronic Current Visit: No (8) Diabetes type 2, controlled SNOMED Code(s): 75348761, 584848886 Code(s): E11.9 - TYPE 2 DIABETES MELLITUS WITHOUT COMPLICATIONS Status: Chronic Priority: High Current Visit: No Qualifiers: Diabetes mellitus manager intermediate insulin use: without manager intermediate use Diabetes mellitus complication status: without complication Qualified Code(s): E11.9 - Type 2 diabetes mellitus without complications - Problem List Review Problem List Initiated/Reviewed/Updated: Yes - My Orders Last 24 Hours: My Active Orders 11/01/19 15:48 Patient Status [ADT] Routine Height and Weight [RC] DAILY Oxygen Therapy [RC] PRN Up With Assistance [RC] ASDIRECTED VTE/DVT Education [RC] PER UNIT ROUTINE Vital Signs [RC] Q4H Docusate Sodium [Colace] 100 mg PO BID PRN HYDROmorphone [Dilaudid] 1 mg IVPUSH Q3H PRN Ondansetron [Zofran] 4 mg IVPUSH Q4H PRN 11/01/19 15:49 Intake and Output [RC] Q12H 11/01/19 15:52 Communication Order [RC] ROUTINE 11/01/19 15:54 Prochlorperazine [Compazine] 10 mg IVPUSH Q6H PRN 11/01/19 16:00 Sodium Chloride 0.9% [Normal Saline] 1,000 ml IV ASDIRECTED 11/01/19 16:16 Resuscitation Status Routine 11/01/19 16:29 Blood Glucose Check, Bedside [RC] TIDAC 11/01/19 16:30 Pantoprazole [ProTONIX IV] 40 mg Sodium Chloride 0.9% [Normal Saline] 10 ml IV Q24H 11/01/19 16:45 Heparin Sodium 5,000 units SUBCUT Q12H 11/01/19 17:00 Insulin Aspart [NovoLOG] See Protocol SUBCUT TIDAC 11/01/19 Dinner Clear Liquid Diet [DIET] 11/02/19 08:07 Sodium Chloride 0.9% with KCl [Normal Saline with 40 mEq KCl] 1,000 ml IV ONETIME 11/02/19 08:08 Magnesium Sulfate/Water [Magnesium Sulfate in Water Premix] 4 gm Premix Bag 1 bag IV ONETIME - Plan Plan:: This 59 year old female admitted with intractable pain, N/V and LUCI 1. Intractable pain: CT reveals increasing metastatic disease. Continue Dilaudid 1 mg IV every 3 hrs PRN pain. 2. N/V: keeping fluids down, still nauseated. Having BMs no obstruction noted on CT this morning. CL diet for now with Zofran and Compazine for nausea PRN. Monitor electrolytes. Protonix daily. 3. LUCI/dehydration: IVFs improved LUCI. NS 125 ml/hr Hold ARB. Monitor labwork in am. Hold nephrotoxic medications. 4. DM Type 2: Hold Po meds. Novolog SSI. Monitor TID AC 5. HTN: Stable. 6. Metastatic colon ca: Hold PO chemo per Dr Coh instruction. Discussed at length poor overall prognosis with patient in regards to worsening metastatic disease. Dr Cho relayed this PO chemo is the last option for treatment they have. We discussed code status. She become tearful, reporting she feels ready to , but she wants to be here for graduation of her daughter in February. As of now she is not ready to change code status to DNR. She will remain FULL CODE now. VTE prophylaxis: Heparin. Dispo: 2-3 days
[2019-11-02] MEDS ORDERED: HYDROmorphone 2 MG Tab PO PRN (10:05)
[2019-11-02] MEDS: Pantoprazole 40 MG in Sodium Chloride 0.9% 10 ML IV SCH (15:51)
[2019-11-02] MEDS: Prochlorperazine 10 MG/2 ML SDV IVPUSH PRN (16:08)
[2019-11-02] MEDS ORDERED: Sodium Chloride 0.9% 1,000 ML IV ONE (17:04)
[2019-11-02] MEDS: Insulin Glargine,Human Rec. Analog 100 Units/ML 3 ML Pen SUBCUT SCH (21:57)
[2019-11-03] MEDS: Sodium Chloride 0.9% 1,000 ML IV SCH ×4 (00:37→20:15)
[2019-11-03] MEDS: Prochlorperazine 10 MG/2 ML SDV IVPUSH PRN (01:21)
[2019-11-03] MEDS: HYDROmorphone 2 MG/ML Syringe IVPUSH PRN ×7 (02:42→21:46)
[2019-11-03] MEDS: Heparin Sodium 5,000 Units/ML Vial SUBCUT SCH ×2 (04:34→18:05)
[2019-11-03 06:16] LABS: BLOOD UREA NITROGEN,BUN 10 mg/dL (7.0-18.0); CARBON DIOXIDE,CO2 21.8 mmol/L (21.0-32.0); CHLORIDE,CL 107 mmol/L (98-107); GLUCOSE RANDOM 110 mg/dL (74-106); POTASSIUM,K 3.4 mmol/L (3.5-5.1); SODIUM,NA 139 mmol/L (136-145)
[2019-11-03] MEDS: Insulin Aspart 100 Units/ML 3 ML Pen SUBCUT SCH ×4 (07:51→21:12)
--- NOTE | 2019-11-03 08:59 | PCM.PN ---
- General Info Date of Service: 11/03/19 Admission Dx/Problem (Free Text): Admission Diagnosis/Problem Admission Diagnosis/Problem Nausea and vomiting Subjective Update: Reports pain, no change but dilaudid only helps for a short time. Reports N/V Zofran and Compazine help. passing gas and peeing. No chest pain or SOB. Functional Status: Reports: Ambulating, Urinating. Denies: Pain Controlled, Tolerating Diet - Review of Systems HEENT: Reports: No Symptoms. Denies: Headaches, Sore Throat Pulmonary: Reports: No Symptoms. Denies: Shortness of Breath Cardiovascular: Reports: No Symptoms. Denies: Chest Pain Gastrointestinal: Reports: Abdominal Pain, Decreased Appetite, Flatus, Nausea, Vomiting Genitourinary: Reports: No Symptoms. Denies: Dysuria, Frequency, Burning Musculoskeletal: Reports: No Symptoms Skin: Reports: No Symptoms Neurological: Reports: No Symptoms Psychiatric: Reports: No Symptoms - Patient Data Vitals - Most Recent: Last Vital Signs Temp 97.6 F 11/03/19 07:10 Pulse 90 11/03/19 07:10 Resp 16 11/03/19 07:10 BP 136/68 11/03/19 07:10 Pulse Ox 92 L 11/03/19 07:10 Weight - Most Recent: 69.626 kg I&O - Last 24 Hours: Intake & Output 11/02/19 11/03/19 11/03/19 22:59 06:59 14:59 Intake Total 100 4546 Output Total 550 500 Balance -450 4046 Lab Results Last 24 Hours: Laboratory Results - last 24 hr 11/02/19 11/02/19 11/02/19 Range/Units 10:45 12:43 16:07 WBC (4.0-11.0) K/uL RBC (4.30-5.90) M/uL Hgb (12.0-16.0) g/dL Hct (36.0-46.0) % MCV (80.0-98.0) fL MCH (27.0-32.0) pg MCHC (31.0-37.0) g/dL RDW Std Deviation (28.0-62.0) fl RDW Coeff of Ej (11.0-15.0) % Plt Count (150-400) K/uL MPV (7.40-12.00) fL Neut % (Auto) (48.0-80.0) % Lymph % (Auto) (16.0-40.0) % Mcdowell % (Auto) (0.0-15.0) % Eos % (Auto) (0.0-7.0) % Baso % (Auto) (0.0-1.5) % Neut # (Auto) (1.4-5.7) K/uL Lymph # (Auto) (0.6-2.4) K/uL Mcdowell # (Auto) (0.0-0.8) K/uL Eos # (Auto) (0.0-0.7) K/uL Baso # (Auto) (0.0-0.1) K/uL Nucleated RBC % /100WBC Nucleated RBCs # K/uL Sodium (136-145) mmol/L Potassium (3.5-5.1) mmol/L Chloride (98-107) mmol/L Carbon Dioxide (21.0-32.0) mmol/L BUN (7.0-18.0) mg/dL Creatinine (0.6-1.0) mg/dL Est Cr Clr Drug Dosing mL/min Estimated GFR (MDRD) ml/min Glucose (74-106) mg/dL POC Glucose 130 H 136 H 129 H (60-110) mg/dL Calcium (8.5-10.1) mg/dL Magnesium (1.8-2.4) mg/dL 11/02/19 11/03/19 11/03/19 Range/Units 21:56 05:25 05:25 WBC 3.47 L (4.0-11.0) K/uL RBC 3.52 L (4.30-5.90) M/uL Hgb 11.2 L (12.0-16.0) g/dL Hct 32.3 L (36.0-46.0) % MCV 91.8 (80.0-98.0) fL MCH 31.8 (27.0-32.0) pg MCHC 34.7 (31.0-37.0) g/dL RDW Std Deviation 47.5 (28.0-62.0) fl RDW Coeff of Ej 14 (11.0-15.0) % Plt Count 96 L (150-400) K/uL MPV 9.30 (7.40-12.00) fL Neut % (Auto) 65.4 (48.0-80.0) % Lymph % (Auto) 28.5 (16.0-40.0) % Mcdowell % (Auto) 5.2 (0.0-15.0) % Eos % (Auto) 0.6 (0.0-7.0) % Baso % (Auto) 0.3 (0.0-1.5) % Neut # (Auto) 2.3 (1.4-5.7) K/uL Lymph # (Auto) 1.0 (0.6-2.4) K/uL Mcdowell # (Auto) 0.2 (0.0-0.8) K/uL Eos # (Auto) 0.0 (0.0-0.7) K/uL Baso # (Auto) 0.0 (0.0-0.1) K/uL Nucleated RBC % 0.0 /100WBC Nucleated RBCs # 0 K/uL Sodium 139 (136-145) mmol/L Potassium 3.4 L (3.5-5.1) mmol/L Chloride 107 (98-107) mmol/L Carbon Dioxide 21.8 (21.0-32.0) mmol/L BUN 10 (7.0-18.0) mg/dL Creatinine 0.8 (0.6-1.0) mg/dL Est Cr Clr Drug Dosing 60.62 mL/min Estimated GFR (MDRD) > 60.0 ml/min Glucose 110 H (74-106) mg/dL POC Glucose 119 H (60-110) mg/dL Calcium 7.7 L (8.5-10.1) mg/dL Magnesium (1.8-2.4) mg/dL 11/03/19 11/03/19 Range/Units 05:25 05:58 WBC (4.0-11.0) K/uL RBC (4.30-5.90) M/uL Hgb (12.0-16.0) g/dL Hct (36.0-46.0) % MCV (80.0-98.0) fL MCH (27.0-32.0) pg MCHC (31.0-37.0) g/dL RDW Std Deviation (28.0-62.0) fl RDW Coeff of Ej (11.0-15.0) % Plt Count (150-400) K/uL MPV (7.40-12.00) fL Neut % (Auto) (48.0-80.0) % Lymph % (Auto) (16.0-40.0) % Mcdowell % (Auto) (0.0-15.0) % Eos % (Auto) (0.0-7.0) % Baso % (Auto) (0.0-1.5) % Neut # (Auto) (1.4-5.7) K/uL Lymph # (Auto) (0.6-2.4) K/uL Mcdowell # (Auto) (0.0-0.8) K/uL Eos # (Auto) (0.0-0.7) K/uL Baso # (Auto) (0.0-0.1) K/uL Nucleated RBC % /100WBC Nucleated RBCs # K/uL Sodium (136-145) mmol/L Potassium (3.5-5.1) mmol/L Chloride (98-107) mmol/L Carbon Dioxide (21.0-32.0) mmol/L BUN (7.0-18.0) mg/dL Creatinine (0.6-1.0) mg/dL Est Cr Clr Drug Dosing mL/min Estimated GFR (MDRD) ml/min Glucose (74-106) mg/dL POC Glucose 108 (60-110) mg/dL Calcium (8.5-10.1) mg/dL Magnesium 1.9 (1.8-2.4) mg/dL Med Orders - Current: Current Medications Docusate Sodium (Colace) 100 mg PO BID PRN PRN Reason: Constipation Last Admin: 11/01/19 17:11 Dose: 100 mg Heparin Sodium (Porcine) (Heparin Sodium) 5,000 units SUBCUT Q12H [facility] T Last Admin: 11/03/19 04:34 Dose: 5,000 units Hydromorphone HCl (Dilaudid) 1 mg IVPUSH Q3H PRN PRN Reason: Pain (severe 7-10) Last Admin: 11/03/19 06:04 Dose: 1 mg Pantoprazole Sodium 40 mg/ (Sodium Chloride) 10 mls @ 300 mls/hr IV Q24H [facility]IA T Last Admin: 11/02/19 15:51 Dose: 300 mls/hr Sodium Chloride (Normal Saline) 1,000 mls @ 150 mls/hr IV Q6H [facility] Last Admin: 11/03/19 06:47 Dose: 150 mls/hr Insulin Aspart (Novolog) 0 unit SUBCUT TIDAC [facility]; Protocol Last Admin: 11/03/19 07:51 Dose: Not Given Insulin Glargine (Lantus Solostar) 15 units SUBCUT BEDTIME [facility] Last Admin: 11/02/19 21:57 Dose: Not Given Ondansetron HCl (Zofran) 4 mg IVPUSH Q4H PRN PRN Reason: Nausea Last Admin: 11/02/19 12:32 Dose: 4 mg Prochlorperazine Edisylate (Compazine) 10 mg IVPUSH Q6H PRN PRN Reason: Nausea/Vomiting Last Admin: 11/03/19 01:21 Dose: 10 mg Discontinued Medications Hydromorphone HCl (Dilaudid) 2 mg PO BID PRN PRN Reason: Pain Last Admin: 11/02/19 10:45 Dose: 2 mg Sodium Chloride (Normal Saline) 1,000 mls @ 125 mls/hr IV ASDIRECTED [facility] Last Admin: 11/02/19 08:06 Dose: 125 mls/hr Sodium Chloride (Normal Saline) 500 mls @ 999 mls/hr IV .BOLUS [facility] Last Admin: 11/01/19 16:27 Dose: 999 mls/hr Potassium Chloride/Sodium Chloride (Normal Saline With 40 Meq Kcl) 1,000 mls @ 150 mls/hr IV ONETIME ONE Stop: 11/02/19 14:46 Last Admin: 11/02/19 08:41 Dose: 150 mls/hr Magnesium Sulfate 4 gm/ Premix 100 mls @ 33.333 mls/hr IV ONETIME ONE Stop: 11/02/19 11:07 Last Admin: 11/02/19 08:41 Dose: 33.333 mls/hr Sodium Chloride (Normal Saline) 1,000 mls @ 999 mls/hr IV ONETIME ONE Stop: 11/02/19 18:04 Last Admin: 11/02/19 17:20 Dose: 999 mls/hr Insulin Detemir (Levemir) 15 unit SUBCUT BEDTIME [facility] Last Admin: 11/01/19 22:22 Dose: Not Given - Exam General: Alert, Oriented, Cooperative, No Acute Distress Lungs: Clear to Auscultation, Normal Respiratory Effort Cardiovascular: Regular Rate, Regular Rhythm GI/Abdominal Exam: Distended, Tender (diffusely, no change), Hepatomegaly. No: Normal Bowel Sounds (hypoactive) Back Exam: Normal Inspection, Full Range of Motion Extremities: Normal Inspection, Normal Range of Motion, Non-Tender, No Pedal Edema Neurological: No New Focal Deficit Psy/Mental Status: Alert, Normal Affect, Normal Mood Sepsis Event Note - Evaluation Sepsis Screening Result: No Definite Risk - Focused Exam Vital Signs: Vital Signs Temp Pulse Resp BP Pulse Ox 11/03/19 07:10 97.6 F 90 16 136/68 92 L 11/03/19 04:00 97.1 F 89 16 124/73 93 L 11/03/19 00:00 97.7 F 82 16 146/65 H 94 L Date Exam was Performed: 11/03/19 Time Exam was Performed: 11:39 - Problem List & Annotations (1) Abdominal pain SNOMED Code(s): 64710519 Code(s): R10.9 - UNSPECIFIED ABDOMINAL PAIN Status: Acute Current Visit: No (2) LUCI (acute kidney injury) SNOMED Code(s): 94660598, 11841599 Code(s): N17.9 - ACUTE KIDNEY FAILURE, UNSPECIFIED Status: Acute Current Visit: Yes (3) Dehydration SNOMED Code(s): 97652688 Code(s): E86.0 - DEHYDRATION Status: Acute Priority: High Current Visit : No (4) Pacemaker SNOMED Code(s): 391000719 Code(s): Z95.0 - PRESENCE OF CARDIAC PACEMAKER Status: Chronic Current Visit: Yes (5) GERD (gastroesophageal reflux disease) SNOMED Code(s): 692955239 Code(s): K21.9 - GASTRO-ESOPHAGEAL REFLUX DISEASE WITHOUT ESOPHAGITIS Status: Chronic Current Visit: No (6) Hypertension SNOMED Code(s): 79658167 Code(s): I10 - ESSENTIAL (PRIMARY) HYPERTENSION Status: Chronic Current Visit: No Qualifiers: Hypertension type: unspecified Qualified Code(s): I10 - Essential (primary ) hypertension (7) Metastatic cancer SNOMED Code(s): 432610304 Code(s): C79.9 - SECONDARY MALIGNANT NEOPLASM OF UNSPECIFIED SITE Status: Chronic Current Visit: No (8) Diabetes type 2, controlled SNOMED Code(s): 27070573, 267989535 Code(s): E11.9 - TYPE 2 DIABETES MELLITUS WITHOUT COMPLICATIONS Status: Chronic Priority: High Current Visit: No Qualifiers: 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 Intractable pain: Continues with intermittent relief with Dilaudid. More distended today. Passing gas, will obtain abd Xray, rule out obstruction. Continue Dilaudid 1 mg IV every 3 hrs PRN pain. 2. SOB: Noted on Xray, keep NPO. nauseated Not keeping fluids down. last BMs was this morning. Zofran and Compazine for nausea PRN. Monitor electrolytes. Protonix daily. 3. LUCI/dehydration:LUCI resolved. Continue IVFs since she is not eating. 4. DM Type 2: Hold Po meds. Novolog SSI. Monitor Q6 5. HTN: Stable. 6. Metastatic colon ca: Hold PO chemo per Dr Cho instruction. Discussed at length poor overall prognosis with patient in regards to worsening metastatic disease. Dr Cho relayed this PO chemo is the last option for treatment they have. We discussed code status. She become tearful, reporting she feels ready to , but she wants to be here for graduation of her daughter in February. As of now she is not ready to change code status to DNR. She will remain FULL CODE now. VTE prophylaxis: Heparin. Dispo: 2-3 days
[2019-11-03] MEDS: Ondansetron 4 MG/2 ML SDV IVPUSH PRN ×2 (09:25→15:24)
[2019-11-03] MEDS ORDERED: Haloperidol 1 MG Tab PO ONE (09:33)
[2019-11-03] MEDS ORDERED: Dexamethasone 10 MG/ML SDV IVPUSH ONE (09:42)
--- NOTE | 2019-11-03 09:56 | CR ---
CT abdomen and pelvis Technique: Multiple axial sections were obtained from above the dome of the diaphragm inferiorly through the pubic symphysis. Intravenous and oral contrast not utilized. Comparison: Previous CT abdomen and pelvis exam of 09/20/19. Findings: Multiple calcified granulomas are seen within the liver and within the spleen. Liver shows multiple ill-defined low density abnormalities, some of these appear to have increased in size from previous exam. Overall number is felt to be stable. Findings likely represent worsening liver metastatic disease. Spleen shows no focal abnormality. Visualized lung bases show nothing acute. Adrenal glands show no nodule. Pancreas is within normal limits. Kidneys show no hydronephrosis. No abnormal calcifications are seen within the kidneys. Surgical clips are seen from prior cholecystectomy. Atherosclerotic calcification is noted within the aorta and iliac vessels. No aneurysm is seen. Several abdominal wall masses are noted anteriorly which appeared to be stable from previous CT study. No pelvic mass or adenopathy is seen. Appendix is identified and appears normal. Mildly prominent fluid-filled loops of small bowel are seen. Findings are suspicious for a mild mid small bowel obstruction. Etiology is not seen on the study and findings may relate to an adhesion. Bone window settings were reviewed appear within normal limits for the patient's age. Impression: 1. Slightly increased size of some liver lesions from previous exam most likely representing worsening liver metastasis. 2. Several abdominal wall masses which appear stable from previous exam. 3. Mildly dilated proximal small bowel suspicious for mild mid small bowel obstruction. 4. Other findings believed to be incidental as noted above. Diagnostic code #9 This report was dictated in [place] Standard Time
[2019-11-03] MEDS ORDERED: Haloperidol 1 MG Tab PO PRN (13:33)
[2019-11-03] MEDS: Pantoprazole 40 MG in Sodium Chloride 0.9% 10 ML IV SCH (18:04)
[2019-11-03] MEDS: Insulin Glargine,Human Rec. Analog 100 Units/ML 3 ML Pen SUBCUT SCH (21:12)
[2019-11-04] MEDS: HYDROmorphone 2 MG/ML Syringe IVPUSH PRN ×7 (00:54→22:06)
[2019-11-04] MEDS: Sodium Chloride 0.9% 1,000 ML IV SCH ×2 (03:01→09:57)
[2019-11-04] MEDS: Prochlorperazine 10 MG/2 ML SDV IVPUSH PRN (03:21)
[2019-11-04] MEDS: Insulin Aspart 100 Units/ML 3 ML Pen SUBCUT SCH ×4 (04:12→20:38)
[2019-11-04] MEDS: Heparin Sodium 5,000 Units/ML Vial SUBCUT SCH ×2 (06:55→17:03)
[2019-11-04 07:00] LABS: BLOOD UREA NITROGEN,BUN 10 mg/dL (7.0-18.0); CARBON DIOXIDE,CO2 18.5 mmol/L (21.0-32.0); CHLORIDE,CL 110 mmol/L (98-107); GLUCOSE RANDOM 116 mg/dL (74-106); POTASSIUM,K 3.6 mmol/L (3.5-5.1); SODIUM,NA 141 mmol/L (136-145)
--- NOTE | 2019-11-04 08:18 | PCM.PN ---
- General Info Date of Service: 11/04/19 Subjective Update: The patient reports she is still having nausea and abdominal pain. Reports several loose stools overnight. Reports swelling in her foot and dry throat. - Review of Systems General: Reports: No Symptoms HEENT: Reports: No Symptoms, Other (dry throat) Pulmonary: Reports: No Symptoms Cardiovascular: Reports: No Symptoms Gastrointestinal: Reports: Abdominal Pain, Diarrhea, Nausea Genitourinary: Reports: No Symptoms Musculoskeletal: Reports: No Symptoms Skin: Reports: No Symptoms Neurological: Reports: No Symptoms Psychiatric: Reports: No Symptoms - Patient Data Vitals - Most Recent: Last Vital Signs Temp 97.2 F 11/04/19 03:58 Pulse 101 H 11/04/19 03:58 Resp 18 11/04/19 03:58 BP 136/69 11/04/19 03:58 Pulse Ox 95 11/04/19 03:58 Weight - Most Recent: 70.67 kg I&O - Last 24 Hours: Intake & Output 11/03/19 11/04/19 11/04/19 22:59 06:59 14:59 Intake Total 1910 1200 Output Total 500 600 Balance 1410 600 Lab Results Last 24 Hours: Laboratory Results - last 24 hr 11/03/19 11/03/19 11/03/19 Range/Units 05:25 09:37 11:30 WBC (4.0-11.0) K/uL RBC (4.30-5.90) M/uL Hgb (12.0-16.0) g/dL Hct (36.0-46.0) % MCV (80.0-98.0) fL MCH (27.0-32.0) pg MCHC (31.0-37.0) g/dL RDW Std Deviation (28.0-62.0) fl RDW Coeff of Ej (11.0-15.0) % Plt Count (150-400) K/uL MPV (7.40-12.00) fL Neut % (Auto) (48.0-80.0) % Lymph % (Auto) (16.0-40.0) % Vigo % (Auto) (0.0-15.0) % Eos % (Auto) (0.0-7.0) % Baso % (Auto) (0.0-1.5) % Neut # (Auto) (1.4-5.7) K/uL Lymph # (Auto) (0.6-2.4) K/uL Vigo # (Auto) (0.0-0.8) K/uL Eos # (Auto) (0.0-0.7) K/uL Baso # (Auto) (0.0-0.1) K/uL Nucleated RBC % /100WBC Nucleated RBCs # K/uL Sodium (136-145) mmol/L Potassium (3.5-5.1) mmol/L Chloride (98-107) mmol/L Carbon Dioxide (21.0-32.0) mmol/L BUN (7.0-18.0) mg/dL Creatinine (0.6-1.0) mg/dL Est Cr Clr Drug Dosing mL/min Estimated GFR (MDRD) ml/min Glucose (74-106) mg/dL POC Glucose 118 H 105 (60-110) mg/dL Calcium (8.5-10.1) mg/dL Magnesium 1.9 (1.8-2.4) mg/dL Total Bilirubin (0.2-1.0) mg/dL AST (15-37) IU/L ALT (14-63) IU/L Alkaline Phosphatase (46-116) U/L Total Protein (6.4-8.2) g/dL Albumin (3.4-5.0) g/dL Globulin (2.6-4.0) g/dL Albumin/Globulin Ratio (0.9-1.6) 11/03/19 11/03/19 11/04/19 Range/Units 15:33 21:05 03:07 WBC (4.0-11.0) K/uL RBC (4.30-5.90) M/uL Hgb (12.0-16.0) g/dL Hct (36.0-46.0) % MCV (80.0-98.0) fL MCH (27.0-32.0) pg MCHC (31.0-37.0) g/dL RDW Std Deviation (28.0-62.0) fl RDW Coeff of Ej (11.0-15.0) % Plt Count (150-400) K/uL MPV (7.40-12.00) fL Neut % (Auto) (48.0-80.0) % Lymph % (Auto) (16.0-40.0) % Vigo % (Auto) (0.0-15.0) % Eos % (Auto) (0.0-7.0) % Baso % (Auto) (0.0-1.5) % Neut # (Auto) (1.4-5.7) K/uL Lymph # (Auto) (0.6-2.4) K/uL [place]igo # (Auto) (0.0-0.8) K/uL Eos # (Auto) (0.0-0.7) K/uL Baso # (Auto) (0.0-0.1) K/uL Nucleated RBC % /100WBC Nucleated RBCs # K/uL Sodium (136-145) mmol/L Potassium (3.5-5.1) mmol/L Chloride (98-107) mmol/L Carbon Dioxide (21.0-32.0) mmol/L BUN (7.0-18.0) mg/dL Creatinine (0.6-1.0) mg/dL Est Cr Clr Drug Dosing mL/min Estimated GFR (MDRD) ml/min Glucose (74-106) mg/dL POC Glucose 128 H 151 H 110 (60-110) mg/dL Calcium (8.5-10.1) mg/dL Magnesium (1.8-2.4) mg/dL Total Bilirubin (0.2-1.0) mg/dL AST (15-37) IU/L ALT (14-63) IU/L Alkaline Phosphatase (46-116) U/L Total Protein (6.4-8.2) g/dL Albumin (3.4-5.0) g/dL Globulin (2.6-4.0) g/dL Albumin/Globulin Ratio (0.9-1.6) 11/04/19 11/04/19 Range/Units 05:50 05:50 WBC 3.60 L (4.0-11.0) K/uL RBC 3.27 L (4.30-5.90) M/uL Hgb 10.4 L (12.0-16.0) g/dL Hct 30.1 L (36.0-46.0) % MCV 92.0 (80.0-98.0) fL MCH 31.8 (27.0-32.0) pg MCHC 34.6 (31.0-37.0) g/dL RDW Std Deviation 47.3 (28.0-62.0) fl RDW Coeff of Ej 14 (11.0-15.0) % Plt Count 90 L (150-400) K/uL MPV 9.30 (7.40-12.00) fL Neut % (Auto) 68.0 (48.0-80.0) % Lymph % (Auto) 26.7 (16.0-40.0) % Vigo % (Auto) 5.0 (0.0-15.0) % Eos % (Auto) 0.3 (0.0-7.0) % Baso % (Auto) 0.0 (0.0-1.5) % Neut # (Auto) 2.5 (1.4-5.7) K/uL Lymph # (Auto) 1.0 (0.6-2.4) K/uL Vigo # (Auto) 0.2 (0.0-0.8) K/uL Eos # (Auto) 0.0 (0.0-0.7) K/uL Baso # (Auto) 0.0 (0.0-0.1) K/uL Nucleated RBC % 0.0 /100WBC Nucleated RBCs # 0 K/uL Sodium 141 (136-145) mmol/L Potassium 3.6 (3.5-5.1) mmol/L Chloride 110 H (98-107) mmol/L Carbon Dioxide 18.5 L (21.0-32.0) mmol/L BUN 10 (7.0-18.0) mg/dL Creatinine 0.8 (0.6-1.0) mg/dL Est Cr Clr Drug Dosing 60.62 mL/min Estimated GFR (MDRD) > 60.0 ml/min Glucose 116 H (74-106) mg/dL POC Glucose (60-110) mg/dL Calcium 7.6 L (8.5-10.1) mg/dL Magnesium 1.5 L (1.8-2.4) mg/dL Total Bilirubin 1.1 H (0.2-1.0) mg/dL AST 28 (15-37) IU/L ALT 26 (14-63) IU/L Alkaline Phosphatase 229 H (46-116) U/L Total Protein 5.4 L (6.4-8.2) g/dL Albumin 2.4 L (3.4-5.0) g/dL Globulin 3.0 (2.6-4.0) g/dL Albumin/Globulin Ratio 0.8 L (0.9-1.6) Med Orders - Current: Current Medications Docusate Sodium (Colace) 100 mg PO BID PRN PRN Reason: Constipation Last Admin: 11/01/19 17:11 Dose: 100 mg Haloperidol (Haldol) 0.5 mg PO Q8HR PRN PRN Reason: Nausea Heparin Sodium (Porcine) (Heparin Sodium) 5,000 units SUBCUT Q12H [facility] Last Admin: 11/04/19 06:55 Dose: Not Given Hydromorphone HCl (Dilaudid) 1 mg IVPUSH Q3H PRN PRN Reason: Pain (severe 7-10) Last Admin: 11/04/19 07:47 Dose: 1 mg Pantoprazole Sodium 40 mg/ (Sodium Chloride) 10 mls @ 300 mls/hr IV Q24H [facility] T Last Admin: 11/03/19 18:04 Dose: 300 mls/hr Sodium Chloride (Normal Saline) 1,000 mls @ 150 mls/hr IV Q6H [facility] T Last Admin: 11/04/19 03:01 Dose: 150 mls/hr Insulin Aspart (Novolog) 0 unit SUBCUT Q6H [facility]; Protocol Last Admin: 11/04/19 04:12 Dose: Not Given Insulin Glargine (Lantus Solostar) 15 units SUBCUT BEDTIME [facility] Last Admin: 11/03/19 21:12 Dose: Not Given Ondansetron HCl (Zofran) 4 mg IVPUSH Q4H PRN PRN Reason: Nausea Last Admin: 11/03/19 15:24 Dose: 4 mg Prochlorperazine Edisylate (Compazine) 10 mg IVPUSH Q6H PRN PRN Reason: Nausea/Vomiting Last Admin: 11/04/19 03:21 Dose: 10 mg Discontinued Medications Dexamethasone (Dexamethasone) 4 mg IVPUSH ONETIME ONE Stop: 11/03/19 09:43 Last Admin: 01/31/20 10:48 Dose: 4 mg Haloperidol (Haldol) 0.5 mg PO ONETIME ONE Stop: 11/03/19 09:34 Last Admin: 11/03/19 10:49 Dose: 0.5 mg Hydromorphone HCl (Dilaudid) 2 mg PO BID PRN PRN Reason: Pain Last Admin: 11/02/19 10:45 Dose: 2 mg Sodium Chloride (Normal Saline) 1,000 mls @ 125 mls/hr IV ASDIRECTED [facility] Last Admin: 11/02/19 08:06 Dose: 125 mls/hr Sodium Chloride (Normal Saline) 500 mls @ 999 mls/hr IV .BOLUS [facility] Last Admin: 11/01/19 16:27 Dose: 999 mls/hr Potassium Chloride/Sodium Chloride (Normal Saline With 40 Meq Kcl) 1,000 mls @ 150 mls/hr IV ONETIME ONE Stop: 11/02/19 14:46 Last Admin: 11/02/19 08:41 Dose: 150 mls/hr Magnesium Sulfate 4 gm/ Premix 100 mls @ 33.333 mls/hr IV ONETIME ONE Stop: 11/02/19 11:07 Last Admin: 11/02/19 08:41 Dose: 33.333 mls/hr Sodium Chloride (Normal Saline) 1,000 mls @ 999 mls/hr IV ONETIME ONE Stop: 11/02/19 18:04 Last Admin: 11/02/19 17:20 Dose: 999 mls/hr Insulin Aspart (Novolog) 0 unit SUBCUT TIDAC [facility]; Protocol Last Admin: 11/03/19 07:51 Dose: Not Given Insulin Detemir (Levemir) 15 unit SUBCUT BEDTIME [facility] Last Admin: 11/01/19 22:22 Dose: Not Given - Exam General: Alert, Oriented, Cooperative Lungs: Clear to Auscultation, Normal Respiratory Effort Cardiovascular: Regular Rate, Regular Rhythm GI/Abdominal Exam: Soft, Non-Tender, Abnormal Bowel Sounds Extremities: Other (minimal pedal edema) Skin: Warm, Dry Neurological: No New Focal Deficit Psy/Mental Status: Alert, Normal Affect, Normal Mood Sepsis Event Note - Evaluation Sepsis Screening Result: No Definite Risk - Focused Exam Vital Signs: Vital Signs Temp Pulse Resp BP Pulse Ox 11/04/19 03:58 97.2 F 101 H 18 136/69 95 11/04/19 00:05 97.2 F 94 18 135/71 96 Date Exam was Performed: 11/04/19 Time Exam was Performed: 11:38 - Problem List Review Problem List Initiated/Reviewed/Updated: Yes - Plan Plan:: This 59 year old female admitted with intractable pain, N/V and LUCI 1. Intractable pain: Continues with intermittent relief with Dilaudid. Continue Dilaudid 1 mg IV every 3 hrs PRN pain. 2. SOB: Noted on Xray, passing stool, advance to clear liquid diet. Zofran, Haldol, and Compazine for nausea PRN. Monitor electrolytes. Protonix daily. Decreased IVF since she feels edematous. 3. LUCI/dehydration:LUCI resolved. 4. DM Type 2: Holding PO meds. Novolog SSI. Monitor Q6 5. HTN: Stable. Holding PO meds 6. Metastatic colon ca: Hold PO chemo per Dr Cho instruction. Patient still wants to be full code because she is trying to make it to daughter's graduation in February. 7. Hypomagnesemia- replace and recheck in AM
[2019-11-04] MEDS ORDERED: Magnesium Sulfate/Water 4 GM in Premix Bag 1 BAG IV ONE (11:36)
[2019-11-04] MEDS: Ondansetron 4 MG/2 ML SDV IVPUSH PRN (15:45)
[2019-11-04] MEDS: Pantoprazole 40 MG in Sodium Chloride 0.9% 10 ML IV SCH (16:59)
[2019-11-04] MEDS: Insulin Glargine,Human Rec. Analog 100 Units/ML 3 ML Pen SUBCUT SCH (20:38)
[2019-11-05] MEDS: HYDROmorphone 2 MG/ML Syringe IVPUSH PRN ×7 (01:34→22:05)
[2019-11-05] MEDS: Sodium Chloride 0.9% 1,000 ML IV SCH ×2 (03:17→22:10)
[2019-11-05] MEDS: Insulin Aspart 100 Units/ML 3 ML Pen SUBCUT SCH ×4 (03:40→21:13)
[2019-11-05] MEDS: Heparin Sodium 5,000 Units/ML Vial SUBCUT SCH ×2 (04:14→17:25)
[2019-11-05 06:49] LABS: BLOOD UREA NITROGEN,BUN 8 mg/dL (7.0-18.0); CARBON DIOXIDE,CO2 21.7 mmol/L (21.0-32.0); CHLORIDE,CL 106 mmol/L (98-107); GLUCOSE RANDOM 115 mg/dL (74-106); POTASSIUM,K 3.2 mmol/L (3.5-5.1); SODIUM,NA 140 mmol/L (136-145)
[2019-11-05] MEDS ORDERED: Magnesium Sulfate/Water 2 GM in Premix Bag 1 BAG IV ONE (08:28)
[2019-11-05] MEDS ORDERED: Sodium Chloride 0.9% 1,000 ML IV ONE (08:30)
[2019-11-05] MEDS ORDERED: Sodium Chloride 0.9% with KCl 1,000 ML IV SCH (10:30)
--- NOTE | 2019-11-05 14:34 | PCM.PN ---
- General Info Date of Service: 11/05/19 - Review of Systems Systems Review Comment:: reports abdominal pain, but has no nausea, passing stool - Patient Data Vitals - Most Recent: Last Vital Signs Temp 36.2 C 11/05/19 08:00 Pulse 79 11/05/19 08:00 Resp 18 11/05/19 08:00 BP 141/81 H 11/05/19 08:00 Pulse Ox 98 11/05/19 08:00 Weight - Most Recent: 71.713 kg I&O - Last 24 Hours: Intake & Output 11/04/19 11/05/19 11/05/19 22:59 06:59 14:59 Intake Total 210 1364 629 Output Total 100 600 Balance 2005 764 629 Lab Results Last 24 Hours: Laboratory Results - last 24 hr 11/04/19 11/04/19 11/05/19 Range/Units 14:58 20:37 03:36 WBC (4.0-11.0) K/uL RBC (4.30-5.90) M/uL Hgb (12.0-16.0) g/dL Hct (36.0-46.0) % MCV (80.0-98.0) fL MCH (27.0-32.0) pg MCHC (31.0-37.0) g/dL RDW Std Deviation (28.0-62.0) fl RDW Coeff of Ej (11.0-15.0) % Plt Count (150-400) K/uL MPV (7.40-12.00) fL Neut % (Auto) (48.0-80.0) % Lymph % (Auto) (16.0-40.0) % [place] % (Auto) (0.0-15.0) % Eos % (Auto) (0.0-7.0) % Baso % (Auto) (0.0-1.5) % Neut # (Auto) (1.4-5.7) K/uL Lymph # (Auto) (0.6-2.4) K/uL [place] # (Auto) (0.0-0.8) K/uL Eos # (Auto) (0.0-0.7) K/uL Baso # (Auto) (0.0-0.1) K/uL Nucleated RBC % /100WBC Nucleated RBCs # K/uL Sodium (136-145) mmol/L Potassium (3.5-5.1) mmol/L Chloride (98-107) mmol/L Carbon Dioxide (21.0-32.0) mmol/L BUN (7.0-18.0) mg/dL Creatinine (0.6-1.0) mg/dL Est Cr Clr Drug Dosing mL/min Estimated GFR (MDRD) ml/min Glucose (74-106) mg/dL POC Glucose 78 122 H 104 (60-110) mg/dL Calcium (8.5-10.1) mg/dL Magnesium (1.8-2.4) mg/dL Total Bilirubin (0.2-1.0) mg/dL AST (15-37) IU/L ALT (14-63) IU/L Alkaline Phosphatase (46-116) U/L Total Protein (6.4-8.2) g/dL Albumin (3.4-5.0) g/dL Globulin (2.6-4.0) g/dL Albumin/Globulin Ratio (0.9-1.6) 11/05/19 11/05/19 11/05/19 Range/Units 05:55 05:55 08:26 WBC 4.01 (4.0-11.0) K/uL RBC 3.55 L (4.30-5.90) M/uL Hgb 11.2 L (12.0-16.0) g/dL Hct 32.3 L (36.0-46.0) % MCV 91.0 (80.0-98.0) fL MCH 31.5 (27.0-32.0) pg MCHC 34.7 (31.0-37.0) g/dL RDW Std Deviation 47.9 (28.0-62.0) fl RDW Coeff of Ej 14 (11.0-15.0) % Plt Count 94 L (150-400) K/uL MPV 9.20 (7.40-12.00) fL Neut % (Auto) 58.4 (48.0-80.0) % Lymph % (Auto) 36.2 (16.0-40.0) % [place] % (Auto) 3.5 (0.0-15.0) % Eos % (Auto) 1.7 (0.0-7.0) % Baso % (Auto) 0.2 (0.0-1.5) % Neut # (Auto) 2.3 (1.4-5.7) K/uL Lymph # (Auto) 1.5 (0.6-2.4) K/uL [place] # (Auto) 0.1 (0.0-0.8) K/uL Eos # (Auto) 0.1 (0.0-0.7) K/uL Baso # (Auto) 0.0 (0.0-0.1) K/uL Nucleated RBC % 0.0 /100WBC Nucleated RBCs # 0 K/uL Sodium 140 (136-145) mmol/L Potassium 3.2 L (3.5-5.1) mmol/L Chloride 106 (98-107) mmol/L Carbon Dioxide 21.7 (21.0-32.0) mmol/L BUN 8 (7.0-18.0) mg/dL Creatinine 0.8 (0.6-1.0) mg/dL Est Cr Clr Drug Dosing 60.62 mL/min Estimated GFR (MDRD) > 60.0 ml/min Glucose 115 H (74-106) mg/dL POC Glucose 88 (60-110) mg/dL Calcium 7.6 L (8.5-10.1) mg/dL Magnesium 1.6 L (1.8-2.4) mg/dL Total Bilirubin 1.2 H (0.2-1.0) mg/dL AST 29 (15-37) IU/L ALT 30 (14-63) IU/L Alkaline Phosphatase 221 H (46-116) U/L Total Protein 5.6 L (6.4-8.2) g/dL Albumin 2.6 L (3.4-5.0) g/dL Globulin 3.0 (2.6-4.0) g/dL Albumin/Globulin Ratio 0.9 (0.9-1.6) Med Orders - Current: Current Medications Docusate Sodium (Colace) 100 mg PO BID PRN PRN Reason: Constipation Last Admin: 11/01/19 17:11 Dose: 100 mg Haloperidol (Haldol) 0.5 mg PO Q8HR PRN PRN Reason: Nausea Heparin Sodium (Porcine) (Heparin Sodium) 5,000 units SUBCUT Q12H [facility] Last Admin: 11/05/19 04:14 Dose: Not Given Hydromorphone HCl (Dilaudid) 1 mg IVPUSH Q3H PRN PRN Reason: Pain (severe 7-10) Last Admin: 11/05/19 12:00 Dose: 1 mg Pantoprazole Sodium 40 mg/ (Sodium Chloride) 10 mls @ 300 mls/hr IV Q24H [facility] Last Admin: 11/04/19 16:59 Dose: 300 mls/hr Sodium Chloride (Normal Saline) 1,000 mls @ 75 mls/hr IV ASDIRECTED [facility] Last Admin: 11/05/19 03:17 Dose: 75 mls/hr Potassium Chloride/Sodium Chloride (Normal Saline With 40 Meq Kcl) 1,000 mls @ 150 mls/hr IV ASDIRECTED [facility] Stop: 11/05/19 17:09 Last Admin: 11/05/19 12:04 Dose: 150 mls/hr Insulin Aspart (Novolog) 0 unit SUBCUT Q6H [facility]; Protocol Last Admin: 11/05/19 09:03 Dose: Not Given Insulin Glargine (Lantus Solostar) 15 units SUBCUT BEDTIME [facility] Last Admin: 11/04/19 20:38 Dose: Not Given Ondansetron HCl (Zofran) 4 mg IVPUSH Q4H PRN PRN Reason: Nausea Last Admin: 11/04/19 15:45 Dose: 4 mg Prochlorperazine Edisylate (Compazine) 10 mg IVPUSH Q6H PRN PRN Reason: Nausea/Vomiting Last Admin: 11/04/19 03:21 Dose: 10 mg Discontinued Medications Dexamethasone (Dexamethasone) 4 mg IVPUSH ONETIME ONE Stop: 11/03/19 09:43 Last Admin: 11/03/19 10:48 Dose: 4 mg Haloperidol (Haldol) 0.5 mg PO ONETIME ONE Stop: 11/03/19 09:34 Last Admin: 11/03/19 10:49 Dose: 0.5 mg Hydromorphone HCl (Dilaudid) 2 mg PO BID PRN PRN Reason: Pain Last Admin: 11/02/19 10:45 Dose: 2 mg Sodium Chloride (Normal Saline) 1,000 mls @ 125 mls/hr IV ASDIRECTED [facility] Last Admin: 11/02/19 08:06 Dose: 125 mls/hr Sodium Chloride (Normal Saline) 500 mls @ 999 mls/hr IV .BOLUS [facility] Last Admin: 11/01/19 16:27 Dose: 999 mls/hr Potassium Chloride/Sodium Chloride (Normal Saline With 40 Meq Kcl) 1,000 mls @ 150 mls/hr IV ONETIME ONE Stop: 11/02/19 14:46 Last Admin: 11/02/19 08:41 Dose: 150 mls/hr Magnesium Sulfate 4 gm/ Premix 100 mls @ 33.333 mls/hr IV ONETIME ONE Stop: 11/02/19 11:07 Last Admin: 11/02/19 08:41 Dose: 33.333 mls/hr Sodium Chloride (Normal Saline) 1,000 mls @ 999 mls/hr IV ONETIME ONE Stop: 11/02/19 18:04 Last Admin: 11/02/19 17:20 Dose: 999 mls/hr Sodium Chloride (Normal Saline) 1,000 mls @ 150 mls/hr IV Q6H [facility] Last Admin: 11/04/19 09:57 Dose: 150 mls/hr Magnesium Sulfate 4 gm/ Premix 100 mls @ 25 mls/hr IV ONETIME ONE Stop: 11/04/19 15:35 Last Admin: 11/04/19 11:54 Dose: 25 mls/hr Magnesium Sulfate 2 gm/ Premix 50 mls @ 50 mls/hr IV ONETIME ONE Stop: 11/05/19 09:27 Last Admin: 11/05/19 09:04 Dose: 50 mls/hr Insulin Aspart (Novolog) 0 unit SUBCUT TIDAC [facility]; Protocol Last Admin: 11/03/19 07:51 Dose: Not Given Insulin Detemir (Levemir) 15 unit SUBCUT BEDTIME [facility] Last Admin: 11/01/19 22:22 Dose: Not Given - Exam General: Alert, Oriented HEENT: Mucous Membr. Moist/[place] Neck: Supple Lungs: Clear to Auscultation, Normal Respiratory Effort Cardiovascular: Regular Rate, Regular Rhythm GI/Abdominal Exam: Soft, Non-Tender, No Distention Extremities: Non-Tender, No Pedal Edema Skin: Warm, Dry, Intact Sepsis Event Note - Evaluation Sepsis Screening Result: No Definite Risk - Focused Exam Vital Signs: Vital Signs Temp Pulse Resp BP Pulse Ox 11/05/19 08:00 36.2 C 79 18 141/81 H 98 11/05/19 03:19 36.6 C 83 18 159/83 H 99 Date Exam was Performed: 11/05/19 Time Exam was Performed: 14:32 - Problem List Review Problem List Initiated/Reviewed/Updated: Yes - My Orders Last 24 Hours: My Active Orders 11/05/19 10:30 Sodium Chloride 0.9% with KCl [Normal Saline with 40 mEq KCl] 1,000 ml IV ASDIRECTED 11/05/19 Lunch Advance Diet Instructions [DIET] 11/06/19 05:11 BASIC METABOLIC PANEL,BMP [CHEM] AM CBC WITH AUTO DIFF [HEME] AM MAGNESIUM [CHEM] AM - Plan Plan:: 59 yo female with pmh of colon cancer admitted with LUCI, bowel obstruction and dehydration. She is clinically improving, will advance diet as tolerated today and if continues to improved discharge home tomorrow.
[2019-11-05] MEDS: Pantoprazole 40 MG in Sodium Chloride 0.9% 10 ML IV SCH (16:19)
[2019-11-05] MEDS: Insulin Glargine,Human Rec. Analog 100 Units/ML 3 ML Pen SUBCUT SCH (21:13)
[2019-11-06] MEDS: HYDROmorphone 2 MG/ML Syringe IVPUSH PRN ×3 (01:06→07:45)
[2019-11-06] MEDS: Insulin Aspart 100 Units/ML 3 ML Pen SUBCUT SCH ×2 (03:55→08:16)
[2019-11-06] MEDS: Heparin Sodium 5,000 Units/ML Vial SUBCUT SCH (04:11)
[2019-11-06 06:24] LABS: BLOOD UREA NITROGEN,BUN 4 mg/dL (7.0-18.0); CARBON DIOXIDE,CO2 22.3 mmol/L (21.0-32.0); CHLORIDE,CL 107 mmol/L (98-107); GLUCOSE RANDOM 111 mg/dL (74-106); POTASSIUM,K 3.3 mmol/L (3.5-5.1); SODIUM,NA 140 mmol/L (136-145)
[2019-11-06] MEDS ORDERED: Magnesium Sulfate/Water 4 GM in Premix Bag 1 BAG IV ONE (07:51)
[2019-11-06] MEDS ORDERED: Potassium Chloride 20 MEQ Tab.ER PO ONE (07:51)
[2019-11-06] MEDS ORDERED: HYDROmorphone 2 MG Tab PO PRN (08:53)
[2019-11-06] MEDS ORDERED: Loratadine 10 MG Tab PO PRN (08:54)
[2019-11-06] MEDS ORDERED: Hydrochlorothiazide 25 MG Tab PO SCH (09:00)
[2019-11-06] MEDS ORDERED: Pantoprazole 40 MG Tab.CR PO SCH (09:00)
--- NOTE | 2019-11-06 11:25 | PCM.DCSUM1 ---
Discharge Summary - Hospital Course Brief History: This 59 year old female with pmh of stage IV metastatic colon can , mets to liver, peritonem, and abdominal wall, HTN, CAD, DM Type 2, and pacemaker presented today to Oncology Telemedicine clinic. She was seen in the ED early this morning due to worsening abdominal pain and N/V. She was given pain medication IV, IVFs and zofran. She was discharged home to follow up with Oncology regarding pain control. She reports she has continued to not be able to keep pain medications down along with not keeping fluids down. Dr Cho called for direct admission for dehydration, LUCI and worsening abdominal pain, in durga of worsening metastatic disease on CT this morning. SHe denies fevers or chills , no chest pain or SOB. she reports it is hard to take a deep breath due to abdominal pain. No diarrhea or constipation. No urinary concerns. She recently started a PO chemotherapy 1 week ago and pain has since increased after this. She take Dilaudid PO at home, which normally takes care of cancer related pain. In the ED this morning, CBC WNL. Lactic acid 1.7. Na 133, K+ 3.7, Cl 94, BUN 38 and Cr 1.6, which is elevated from baseline or 10/0.8 respectively. Bilirubin 1.8, AST 39, ALT 40 alk phos 290. She will be admitted for intractable pain, N/V, dehydration and LUCI. Diagnosis: Stroke: No - Discharge Data Discharge Date: 11/06/19 Discharge Disposition: Home, Self-Care 01 Condition: Good - Referral to Home Health Primary Care Physician: Raman Cho MD - Discharge Diagnosis/Problem(s) (1) Abdominal pain SNOMED Code(s): 70662680 ICD Code: R10.9 - UNSPECIFIED ABDOMINAL PAIN Status: Acute Current Visit : No (2) LUCI (acute kidney injury) SNOMED Code(s): 01917395, 18822210 ICD Code: N17.9 - ACUTE KIDNEY FAILURE, UNSPECIFIED Status: Acute Current Visit: Yes (3) Dehydration SNOMED Code(s): 01026762 ICD Code: E86.0 - DEHYDRATION Status: Acute Priority: High Current Visit: No (4) Pacemaker SNOMED Code(s): 139672331 ICD Code: Z95.0 - PRESENCE OF CARDIAC PACEMAKER Status: Chronic Current Visit: Yes (5) GERD (gastroesophageal reflux disease) SNOMED Code(s): 739526334 ICD Code: K21.9 - GASTRO-ESOPHAGEAL REFLUX DISEASE WITHOUT ESOPHAGITIS Status: Chronic Current Visit: No (6) Hypertension SNOMED Code(s): 70987427 ICD Code: I10 - ESSENTIAL (PRIMARY) HYPERTENSION Status: Chronic Current Visit: No Qualifiers: Hypertension type: unspecified Qualified Code(s): I10 - Essential (primary ) hypertension (7) Metastatic cancer SNOMED Code(s): 517886455 ICD Code: C79.9 - SECONDARY MALIGNANT NEOPLASM OF UNSPECIFIED SITE Status: Chronic Current Visit: No (8) Diabetes type 2, controlled SNOMED Code(s): 16930178, 647414970 ICD Code: E11.9 - TYPE 2 DIABETES MELLITUS WITHOUT COMPLICATIONS Status: Chronic Priority: High Current Visit: No Qualifiers: Diabetes mellitus watermaster insulin use: without watermaster use Diabetes mellitus complication status: without complication Qualified Code(s): E11.9 - Type 2 diabetes mellitus without complications - Patient Instructions Diet: GI Soft/Low Residue/Low Fiber Activity: As Tolerated, Rest and Relax Today Showering/Bathing: May Shower Notify Provider of: Fever, Increased Pain, Swelling and Redness, Drainage, Nausea and/or Vomiting Other/Special Instructions: Keep appointment with Dr Cho to discuss further pain management - Discharge Plan *PRESCRIPTION DRUG MONITORING PROGRAM REVIEWED*: Not Applicable *COPY OF PRESCRIPTION DRUG MONITORING REPORT IN PATIENT THELMA: Not Applicable Prescriptions/Med Rec: HYDROmorphone [Dilaudid] 2 mg PO Q6H PRN #10 tablet PRN Reason: Pain polyethylene glycoL 3350 [MiraLAX] 17 gm PO Q72H PRN #1 packet PRN Reason: Constipation Home Medications: Home Meds metFORMIN [Glucophage] 1,000 mg PO BIDMEALS 05/09/14 [History] LORazepam [Ativan] 1 mg PO BEDTIME PRN 12/26/15 [History] Insulin Glarg,Human.Rec.Analog [LantUS Solostar] 34 units SUBCUT BID 08/06/17 [ History] Pantoprazole [ProTONIX] 40 mg PO DAILY 08/06/17 [History] Insulin Aspart [NovoLOG] 14 unit SUBCUT TIDAC 02/04/18 [History] Loperamide [Imodium] 2 mg PO Q4H PRN MDD loose stool 07/20/18 [History] Estrogens, Conjugated [Premarin Vaginal Crm] 0.5 gram VAG ASDIRECTED 03/01/19 [ History] Loratadine [Claritin] 10 mg PO DAILY PRN 03/01/19 [History] atorvaSTATin Calcium [Lipitor] 80 mg PO DAILY 03/01/19 [History] Valsartan 160 mg PO DAILY 30 Days #30 tablet 03/02/19 [Rx] hydroCHLOROthiazide [Hydrochlorothiazide] 25 mg PO DAILY 30 Days #30 tablet [Rx] Diphenhyd/Lidocaine/Nystatin [Magic Mouthwash] 5 ml PO Q4H PRN MDD Oral Ulcers 11/01/19 [History] Magnesium Oxide 400 mg PO BID 11/01/19 [History] Ondansetron [Zofran ODT] 4 mg PO TID PRN 11/01/19 [History] Trifluridine/Tipiracil HCl [Lonsurf 20 mg-8.19 mg Tablet] 1 each PO ASDIRECTED 11/01/19 [History] Docusate Sodium [Colace] 100 mg PO BID PRN cap 11/06/19 [Rx] HYDROmorphone [Dilaudid] 2 mg PO Q6H PRN #10 tablet 11/06/19 [Rx] polyethylene glycoL 3350 [MiraLAX] 17 gm PO Q72H PRN #1 packet 11/06/19 [Rx] Oxygen Therapy Mode: Room Air Patient Handouts: Hydromorphone tablets, Polyethylene Glycol powder Referrals: Raman Cho MD [Primary Care Provider] - 11/08/19 4:00 pm - Discharge Summary/Plan Comment DC Time >30 min.: No Discharge Summary/Plan Comment: Admitting Diagnoses: Intractable Pain N/V Dehydration LUCI Worsening mets from colon ca Discharge Diagnoses: Intractable Pain N/V Dehydration LUCI Other PMH: Stage IV colon cancer with mets to liver and peritoneum Leanne was admitted and treated with IV pain medications and antiemetics. Antiemetics weren't working well, she was given Haldol x1 po dose, which helped nausea tremendously. She was continued on IVFs for dehydration. We discussed at length poor prognosis including new CT findings of worsening metastatic disease. Currently she would like to remain full code. She will be discharged home today as she is tolerating diet well and pain is moderately controlled with Dilaudid po PRN every 6 hours. She is to follow up with Dr Cho for further Dilaudid pills as he is the main provider for pain control. She is to follow up with Dr Cho Wednesday. She is to return to ED or clinic if concerns should arise. - Patient Data Vitals - Most Recent: Last Vital Signs Temp 97.6 F 11/06/19 07:45 Pulse 81 11/06/19 09:38 Resp 18 11/06/19 07:45 BP 154/79 H 11/06/19 09:42 Pulse Ox 96 11/06/19 07:45 Weight - Most Recent: 71.668 kg I&O - Last 24 hours: Intake & Output 11/05/19 11/06/19 11/06/19 22:59 06:59 14:59 Intake Total 1089 1079 Output Total 880 1250 Balance 209 -171 Lab Results - Last 24 hrs: Laboratory Results - last 24 hr 11/05/19 11/05/19 11/06/19 Range/Units 16:16 20:48 03:25 WBC (4.0-11.0) K/uL RBC (4.30-5.90) M/uL Hgb (12.0-16.0) g/dL Hct (36.0-46.0) % MCV (80.0-98.0) fL MCH (27.0-32.0) pg MCHC (31.0-37.0) g/dL RDW Std Deviation (28.0-62.0) fl RDW Coeff of Ej (11.0-15.0) % Plt Count (150-400) K/uL MPV (7.40-12.00) fL Neut % (Auto) (48.0-80.0) % Lymph % (Auto) (16.0-40.0) % [place] % (Auto) (0.0-15.0) % Eos % (Auto) (0.0-7.0) % Baso % (Auto) (0.0-1.5) % Neut # (Auto) (1.4-5.7) K/uL Lymph # (Auto) (0.6-2.4) K/uL [place] # (Auto) (0.0-0.8) K/uL Eos # (Auto) (0.0-0.7) K/uL Baso # (Auto) (0.0-0.1) K/uL Nucleated RBC % /100WBC Nucleated RBCs # K/uL Sodium (136-145) mmol/L Potassium (3.5-5.1) mmol/L Chloride (98-107) mmol/L Carbon Dioxide (21.0-32.0) mmol/L BUN (7.0-18.0) mg/dL Creatinine (0.6-1.0) mg/dL Est Cr Clr Drug Dosing mL/min Estimated GFR (MDRD) ml/min Glucose (74-106) mg/dL POC Glucose 142 H 155 H 116 H (60-110) mg/dL Calcium (8.5-10.1) mg/dL Magnesium (1.8-2.4) mg/dL 11/06/19 11/06/19 Range/Units 06:00 06:00 WBC 3.66 L (4.0-11.0) K/uL RBC 3.51 L (4.30-5.90) M/uL Hgb 11.1 L (12.0-16.0) g/dL Hct 31.9 L (36.0-46.0) % MCV 90.9 (80.0-98.0) fL MCH 31.6 (27.0-32.0) pg MCHC 34.8 (31.0-37.0) g/dL RDW Std Deviation 47.0 (28.0-62.0) fl RDW Coeff of Ej 14 (11.0-15.0) % Plt Count 84 L (150-400) K/uL MPV 8.90 (7.40-12.00) fL Neut % (Auto) 55.4 (48.0-80.0) % Lymph % (Auto) 36.9 (16.0-40.0) % [place] % (Auto) 5.5 (0.0-15.0) % Eos % (Auto) 1.9 (0.0-7.0) % Baso % (Auto) 0.3 (0.0-1.5) % Neut # (Auto) 2.0 (1.4-5.7) K/uL Lymph # (Auto) 1.4 (0.6-2.4) K/uL [place] # (Auto) 0.2 (0.0-0.8) K/uL Eos # (Auto) 0.1 (0.0-0.7) K/uL Baso # (Auto) 0.0 (0.0-0.1) K/uL Nucleated RBC % 0.0 /100WBC Nucleated RBCs # 0 K/uL Sodium 140 (136-145) mmol/L Potassium 3.3 L (3.5-5.1) mmol/L Chloride 107 (98-107) mmol/L Carbon Dioxide 22.3 (21.0-32.0) mmol/L BUN 4 L (7.0-18.0) mg/dL Creatinine 0.7 (0.6-1.0) mg/dL Est Cr Clr Drug Dosing 69.28 mL/min Estimated GFR (MDRD) > 60.0 ml/min Glucose 111 H (74-106) mg/dL POC Glucose (60-110) mg/dL Calcium 7.6 L (8.5-10.1) mg/dL Magnesium 1.4 L (1.8-2.4) mg/dL Med Orders - Current: Current Medications Docusate Sodium (Colace) 100 mg PO BID PRN PRN Reason: Constipation Last Admin: 11/01/19 17:11 Dose: 100 mg Haloperidol (Haldol) 0.5 mg PO Q8HR PRN PRN Reason: Nausea Heparin Sodium (Porcine) (Heparin Sodium) 5,000 units SUBCUT Q12H [facility] Last Admin: 11/06/19 04:11 Dose: Not Given Hydrochlorothiazide (Hydrochlorothiazide) 25 mg PO DAILY [facility] Last Admin: 11/06/19 09:41 Dose: 25 mg Hydromorphone HCl (Dilaudid) 2 mg PO Q4H PRN PRN Reason: Pain Pantoprazole Sodium 40 mg/ (Sodium Chloride) 10 mls @ 300 mls/hr IV Q24H [facility] Last Admin: 11/05/19 16:19 Dose: 300 mls/hr Insulin Aspart (Novolog) 0 unit SUBCUT TIDAC [facility]; Protocol Insulin Glargine (Lantus Solostar) 15 units SUBCUT BEDTIME [facility] Last Admin: 11/05/19 21:13 Dose: Not Given Loratadine (Claritin) 10 mg PO DAILY PRN PRN Reason: Allergies Ondansetron HCl (Zofran) 4 mg IVPUSH Q4H PRN PRN Reason: Nausea Last Admin: 11/04/19 15:45 Dose: 4 mg Pantoprazole Sodium (Protonix) 40 mg PO DAILY [facility] Last Admin: 11/06/19 09:41 Dose: 40 mg Prochlorperazine Edisylate (Compazine) 10 mg IVPUSH Q6H PRN PRN Reason: Nausea/Vomiting Last Admin: 11/04/19 03:21 Dose: 10 mg Valsartan (Diovan) 160 mg PO DAILY [facility] Last Admin: 11/06/19 09:42 Dose: 160 mg Discontinued Medications Dexamethasone (Dexamethasone) 4 mg IVPUSH ONETIME ONE Stop: 11/03/19 09:43 Last Admin: 11/03/19 10:48 Dose: 4 mg Haloperidol (Haldol) 0.5 mg PO ONETIME ONE Stop: 11/03/19 09:34 Last Admin: 11/03/19 10:49 Dose: 0.5 mg Hydromorphone HCl (Dilaudid) 1 mg IVPUSH Q3H PRN PRN Reason: Pain (severe 7-10) Last Admin: 11/06/19 07:45 Dose: 1 mg Hydromorphone HCl (Dilaudid) 2 mg PO BID PRN PRN Reason: Pain Last Admin: 11/02/19 10:45 Dose: 2 mg Sodium Chloride (Normal Saline) 1,000 mls @ 125 mls/hr IV ASDIRECTED [facility] Last Admin: 11/02/19 08:06 Dose: 125 mls/hr Sodium Chloride (Normal Saline) 500 mls @ 999 mls/hr IV .BOLUS [facility] Last Admin: 11/01/19 16:27 Dose: 999 mls/hr Potassium Chloride/Sodium Chloride (Normal Saline With 40 Meq Kcl) 1,000 mls @ 150 mls/hr IV ONETIME ONE Stop: 11/02/19 14:46 Last Admin: 11/02/19 08:41 Dose: 150 mls/hr Magnesium Sulfate 4 gm/ Premix 100 mls @ 33.333 mls/hr IV ONETIME ONE Stop: 11/02/19 11:07 Last Admin: 11/02/19 08:41 Dose: 33.333 mls/hr Sodium Chloride (Normal Saline) 1,000 mls @ 999 mls/hr IV ONETIME ONE Stop: 11/02/19 18:04 Last Admin: 11/02/19 17:20 Dose: 999 mls/hr Sodium Chloride (Normal Saline) 1,000 mls @ 150 mls/hr IV Q6H [facility] Last Admin: 11/04/19 09:57 Dose: 150 mls/hr Sodium Chloride (Normal Saline) 1,000 mls @ 75 mls/hr IV ASDIRECTED [facility] Last Admin: 11/05/19 22:10 Dose: 75 mls/hr Magnesium Sulfate 4 gm/ Premix 100 mls @ 25 mls/hr IV ONETIME ONE Stop: 11/04/19 15:35 Last Admin: 11/04/19 11:54 Dose: 25 mls/hr Magnesium Sulfate 2 gm/ Premix 50 mls @ 50 mls/hr IV ONETIME ONE Stop: 11/05/19 09:27 Last Admin: 11/05/19 09:04 Dose: 50 mls/hr Potassium Chloride/Sodium Chloride (Normal Saline With 40 Meq Kcl) 1,000 mls @ 150 mls/hr IV ASDIRECTED [facility] Stop: 11/05/19 17:09 Last Admin: 11/05/19 12:04 Dose: 150 mls/hr Magnesium Sulfate 4 gm/ Premix 100 mls @ 50 mls/hr IV ONETIME ONE Stop: 11/06/19 09:50 Last Admin: 11/06/19 08:18 Dose: 50 mls/hr Insulin Aspart (Novolog) 0 unit SUBCUT TIDAC [facility]; Protocol Last Admin: 11/03/19 07:51 Dose: Not Given Insulin Aspart (Novolog) 0 unit SUBCUT Q6H [facility]; Protocol Last Admin: 11/06/19 08:16 Dose: Not Given Insulin Detemir (Levemir) 15 unit SUBCUT BEDTIME [facility] Last Admin: 11/01/19 22:22 Dose: Not Given Potassium Chloride (Klor-Con M20) 40 meq PO ONETIME ONE Stop: 11/06/19 07:52 Last Admin: 11/06/19 08:12 Dose: 40 meq
[2019-11-06] MEDS ORDERED: Insulin Aspart 100 Units/ML 3 ML Pen SUBCUT SCH (11:30)
[2019-11-06 12:54] VITALS: BP 149/82; PULSE 76
== END 2019-11-06 13:00 | disposition home or self-care (01) | DRG 948 ==
LOC: MW.MS 15:22
PROVIDERS: ADMIT Student in an Organized Health Care Education/Training Program; ATTEND Student in an Organized Health Care Education/Training Program
DX: G89.3 Neoplasm related pain (acute) (chronic) (principal); C18.9 Malignant neoplasm of colon, unspecified; N17.9 Acute kidney failure, unspecified; E86.0 Dehydration; I25.10 Atherosclerotic heart disease of native coronary artery without angina pectoris; I10 Essential (primary) hypertension; E11.9 Type 2 diabetes mellitus without complications; H54.7 Unspecified visual loss; E78.00 Pure hypercholesterolemia, unspecified; K21.9 Gastro-esophageal reflux disease without esophagitis; F41.9 Anxiety disorder, unspecified; F32.9 Major depressive disorder, single episode, unspecified; E83.42 Hypomagnesemia; Z90.49 Acquired absence of other specified parts of digestive tract; Z90.89 Acquired absence of other organs; Z90.710 Acquired absence of both cervix and uterus; Z90.79 Acquired absence of other genital organ(s); Z90.721 Acquired absence of ovaries, unilateral; Z95.0 Presence of cardiac pacemaker; Z85.038 Personal history of other malignant neoplasm of large intestine; Z85.05 Personal history of malignant neoplasm of liver; Z88.5 Allergy status to narcotic agent; Z88.8 Allergy status to other drugs, medicaments and biological substances; Z79.4 Long term (current) use of insulin; Z79.899 Other long term (current) drug therapy
CPT/HCPCS: 36415; 74019; 74019-26; 80048; 80053; 82962; 83735; 85025; A9270-GY; C9113; J0780; J1100; J1170; J1642; J1644; J1815-GY; J2405; J3475; J3480; J7030; J7040; J7050

== ENCOUNTER 2019-11-20 18:43 | Emergency (ER) | payer OTHER ==
[2019-11-20] MEDS ORDERED: Sodium Chloride 0.9% 2.5 ML Syringe FLUSH PRN (19:21)
[2019-11-20] MEDS ORDERED: Sodium Chloride 0.9% 10 ML Syringe FLUSH PRN (19:21)
[2019-11-20] MEDS ORDERED: HYDROmorphone 1 MG/ML Syringe IVPUSH ONE ×2 (19:22→23:10)
--- NOTE | 2019-11-20 19:30 | EDM.PDOC ---
ED HPI GENERAL MEDICAL PROBLEM - General Chief Complaint: Cardiovascular Problem Stated Complaint: CHEST PAIN,ABDOMONIAL PAIN,HARD TIME BREATHING Time Seen by Provider: 11/20/19 19:15 Source of Information: Reports: Patient - History of Present Illness INITIAL COMMENTS - FREE TEXT/NARRATIVE: The patient is a 59-year-old female with stage IV metastatic colon cancer who presents to the ER complaining of chest pain, abdominal pain and nausea and vomiting. She just restarted her cancer drug today and then she started having some burning in her chest which moved into her abdomen she started developing abdominal pain, nausea and vomiting and she is concerned that she is having an allergic reaction to her medication. She states that she had this in the past and she had a bowel obstruction but it was relieved with fluids and no surgery. She denies any fevers or chills, she denies any dysuria, urinary frequency, back pain, shortness of breath, dyspnea exertion or any other acute complaints. Chest Pain Pain Score (Numeric/FACES): 7 - Related Data Allergies Allergy/AdvReac Type Severity Reaction Status Date / Time hydrocodone Allergy Unknown Hives Verified 11/20/19 18:54 ibuprofen Allergy Unknown Hives Verified 11/20/19 18:54 morphine Allergy Unknown Seizure Verified 11/20/19 18:54 nitroglycerin Allergy Unknown Difficulty Verified 11/20/19 18:54 Breathing caffeine Allergy Vomiting Verified 11/20/19 18:54 cyanocobalamin (vitamin B12) Allergy Nausea and Verified 11/20/19 18:54 Vomiting diphenhydramine HCl Allergy Excitabilit Verified 11/20/19 18:54 [From Benadryl] y pyridoxine Allergy Nausea and Verified 11/20/19 18:54 Vomiting Home Meds: Home Meds metFORMIN [Glucophage] 1,000 mg PO BIDMEALS 05/09/14 [History] LORazepam [Ativan] 1 mg PO BEDTIME PRN 12/26/15 [History] Insulin Glarg,Human.Rec.Analog [LantUS Solostar] 34 units SUBCUT BID 08/06/17 [ History] Pantoprazole [ProTONIX] 40 mg PO DAILY 08/06/17 [History] Insulin Aspart [NovoLOG] 14 unit SUBCUT TIDAC 02/04/18 [History] Loperamide [Imodium] 2 mg PO Q4H PRN MDD loose stool 07/20/18 [History] Estrogens, Conjugated [Premarin Vaginal Crm] 0.5 gram VAG ASDIRECTED 03/01/19 [ History] Loratadine [Claritin] 10 mg PO DAILY PRN 03/01/19 [History] atorvaSTATin Calcium [Lipitor] 80 mg PO DAILY 03/01/19 [History] Valsartan 160 mg PO DAILY 30 Days #30 tablet 03/02/19 [Rx] hydroCHLOROthiazide [Hydrochlorothiazide] 25 mg PO DAILY 30 Days #30 tablet [Rx] Diphenhyd/Lidocaine/Nystatin [Magic Mouthwash] 5 ml PO Q4H PRN MDD Oral Ulcers 11/01/19 [History] Magnesium Oxide 400 mg PO BID 11/01/19 [History] Ondansetron [Zofran ODT] 4 mg PO TID PRN 11/01/19 [History] Trifluridine/Tipiracil HCl [Lonsurf 20 mg-8.19 mg Tablet] 1 each PO ASDIRECTED 11/01/19 [History] Docusate Sodium [Colace] 100 mg PO BID PRN cap 11/06/19 [Rx] HYDROmorphone [Dilaudid] 2 mg PO Q6H PRN #10 tablet 11/06/19 [Rx] polyethylene glycoL 3350 [MiraLAX] 17 gm PO Q72H PRN #1 packet 11/06/19 [Rx] Past Medical History HEENT History: Reports: Impaired Vision Other HEENT History: wears glasses Cardiovascular History: Reports: High Cholesterol, Hypertension, Pacemaker Respiratory History: Reports: Pneumothorax Gastrointestinal History: Reports: GERD Other Gastrointestinal History: hernia, colon CA Genitourinary History: Reports: UTI, Recurrent 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: , Other (See Below) 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 History: x2 Musculoskeletal History: Reports: None Neurological History: Reports: None Psychiatric History: Reports: Anxiety, Depression Endocrine/Metabolic History: Reports: Diabetes, Type II Hematologic History: Reports: None Immunologic History: Reports: None Oncologic (Cancer) History: Reports: Colon, Liver, Metastatic Dermatologic History: Reports: None - Infectious Disease History Infectious Disease History: Reports: Measles, Other (See Below) Other Infectious Disease History: childhood - Past Surgical History HEENT Surgical History: Reports: Adenoidectomy, Tonsillectomy Cardiovascular Surgical History: Reports: None Respiratory Surgical History: Reports: Other (See Below) Other Respiratory Surgeries/Procedures: chest tube placements GI Surgical History: Reports: Cholecystectomy, Colon, Hernia Repair/Other Other GI Surgeries/Procedures: colectomy x2 Female Surgical History: Reports: Section, Hysterectomy, Salpingo- Oophorectomy Other Female Surgeries/Procedures: X2 Endocrine Surgical History: Reports: None Neurological Surgical History: Reports: None Musculoskeletal Surgical History: Reports: None, Other (See Below) Other Musculoskeletal Surgeries/Procedures:: rigth knee pain Oncologic Surgical History: Reports: Other (See Below) Other Oncologic Surgeries/Procedures: presently on chemo treatment last done on 01/20/19 Dermatological Surgical History: Reports: None Social & Family History - Family History Family Medical History: Noncontributory GI: Reports: None - Tobacco Use Smoking Status *Q: Never Smoker - Caffeine Use Caffeine Use: Reports: None Caffeine Use Comment: allergic to caffeine - Recreational Drug Use Recreational Drug Use: No - Living Situation & Occupation Living situation: Reports: ED ROS GENERAL - Review of Systems Review Of Systems: See Below (Positive for abdominal pain, nausea and vomiting, negative for shortness of breath, negative for dyspnea exertion, negative for fevers, all other Positives and pertinent negatives as per HPI. All other pertinent systems were reviewed and are negative) ED EXAM, GENERAL - Physical Exam Exam: See Below Free Text/Narrative:: Constitutional: Nontoxic, looks like she does not feel well HEENT.: Normocephalic, Atraumatic, PERRL, EOMI, External ears are atraumatic, nares are patent without epistaxis Neck: Normal range of motion, Trachea Midline, No stridor Respiratory.: No respiratory distress, No tachypnea, Lungs Clear to Auscultation bilaterally without wheezes, rales, or rhonchi Cardiovascular.: Regular rate and Rhythm without murmurs, rubs, or gallops, good peripheral perfusion GI: Abdomen soft, nondistended, there is nonspecific, not consistently reproducible generalized tenderness without rebound, rigidity or guarding Genital Urinary: Deferred Musculoskeletal: Good range of motion. All 4 extremities present and atraumatic , no edema Back: Full Range of Motion Skin: Warm, Dry, Color is ethnicity appropriate, No acute rash. Lymphatic: No lymphadenopathy noted Neurological: Alert, Awake and oriented x 3, No focal deficits noted appreciate , GCS 15 Psych: Affect, Judgement, mood normal Course - Vital Signs Text/Narrative:: The patient's abdominal exam was unremarkable, but given the patient's history of metastatic colon cancer a CT scan of the abdomen pelvis was performed. When I first went into see the patient after receiving Dilaudid 1 mg IV (she told me she did not take anything for pain at home ) was initially more concerned but then it was discovered that the patient takes Dilaudid 2 mg tablets orally. I talked to the patient in detail about this after the CT scan had been performed, and the more she talks this sounds like acute on chronic pain. CT scan results returned with no obvious signs of a small bowel obstruction -no free air, no colitis. There were numerous abnormalities found secondary to her recurrent disease but given that the patient has not vomited one time in the ER , her abdomen is soft, it is not distended, and there are definitely no peritoneal signs, I believe that this is simply an acute on chronic exacerbation of her malignancy. The patient is opioid tolerant as she does take Dilaudid orally as discussed above so she was given Dilaudid 2 mg IV to supplement the first milligram she received and her pain was sufficiently relieved. Given everything discussed above, at the time of this dictation I believe the patient is stable without any obvious medical or surgical emergencies and the patient is stable for discharge with close outpatient follow-up. Last Recorded V/S: Last Vital Signs Temp 36.3 C 11/21/19 00:35 Pulse 99 11/21/19 00:35 Resp 18 11/20/19 23:21 BP 155/79 H 11/21/19 00:35 Pulse Ox 100 11/21/19 00:35 - Orders/Labs/Meds Orders: Active Orders 24 hr Category Date Time Status Saline Lock Insert [OM.PC] Stat Oth 11/20/19 19:21 Ordered Labs: Laboratory Tests 11/20/19 11/20/19 11/20/19 Range/Units 20:00 20:00 21:50 WBC 4.77 (4.0-11.0) K/uL RBC 3.65 L (4.30-5.90) M/uL Hgb 11.8 L (12.0-16.0) g/dL Hct 34.1 L (36.0-46.0) % MCV 93.4 (80.0-98.0) fL MCH 32.3 H (27.0-32.0) pg MCHC 34.6 (31.0-37.0) g/dL RDW Std Deviation 56.5 (28.0-62.0) fl RDW Coeff of Ej 17 H (11.0-15.0) % Plt Count 130 L (150-400) K/uL MPV 9.40 (7.40-12.00) fL Neut % (Auto) 62.3 (48.0-80.0) % Lymph % (Auto) 25.4 (16.0-40.0) % [place] % (Auto) 11.7 (0.0-15.0) % Eos % (Auto) 0.4 (0.0-7.0) % Baso % (Auto) 0.2 (0.0-1.5) % Neut # (Auto) 3.0 (1.4-5.7) K/uL Lymph # (Auto) 1.2 (0.6-2.4) K/uL [place] # (Auto) 0.6 (0.0-0.8) K/uL Eos # (Auto) 0.0 (0.0-0.7) K/uL Baso # (Auto) 0.0 (0.0-0.1) K/uL Nucleated RBC % 0.0 /100WBC Nucleated RBCs # 0 K/uL Sodium 139 (136-145) mmol/L Potassium 3.4 L (3.5-5.1) mmol/L Chloride 103 (98-107) mmol/L Carbon Dioxide 25.1 (21.0-32.0) mmol/L BUN 25 H (7.0-18.0) mg/dL Creatinine 0.9 (0.6-1.0) mg/dL Est Cr Clr Drug Dosing 53.89 mL/min Estimated GFR (MDRD) > 60.0 ml/min Glucose 215 H (74-106) mg/dL Calcium 9.0 (8.5-10.1) mg/dL Total Bilirubin 0.9 (0.2-1.0) mg/dL AST 49 H (15-37) IU/L ALT 48 (14-63) IU/L Alkaline Phosphatase 299 H (46-116) U/L Total Protein 7.0 (6.4-8.2) g/dL Albumin 3.3 L (3.4-5.0) g/dL Globulin 3.7 (2.6-4.0) g/dL Albumin/Globulin Ratio 0.9 (0.9-1.6) Lipase 174 (73-393) U/L Urine Color YELLOW Urine Appearance CLEAR Urine pH 8.5 H (5.0-8.0) Ur Specific [place] 1.015 (1.001-1.035) Urine Protein NEGATIVE (NEGATIVE) mg/dL Urine Glucose (UA) NEGATIVE (NEGATIVE) mg/dL Urine Ketones NEGATIVE (NEGATIVE) mg/dL Urine Occult Blood NEGATIVE (NEGATIVE) Urine Nitrite NEGATIVE (NEGATIVE) Urine Bilirubin NEGATIVE (NEGATIVE) Urine Urobilinogen 1.0 (<2.0) EU/dL Ur Leukocyte Esterase NEGATIVE (NEGATIVE) Urine RBC 0-1 (0-2/HPF) Urine WBC 0-1 (0-5/HPF) Ur Epithelial Cells RARE (NONE-FEW) Urine Bacteria RARE (NEGATIVE) Meds: Medications Discontinued Medications Generic Name Dose Route Start Last Admin Trade Name Freq PRN Reason Stop Dose Admin Heparin Sodium (Porcine) 500 units 11/20/19 23:22 11/21/19 00:51 Heparin Lock Flush 100 Units/Ml FLUSH 11/20/19 23:23 500 units NOW STA Administration Hydromorphone HCl 1 mg 11/20/19 19:22 11/20/19 20:54 Dilaudid IVPUSH 11/20/19 19:23 1 mg ONETIME ONE Administration Hydromorphone HCl 2 mg 11/20/19 23:10 11/20/19 23:19 Dilaudid IVPUSH 11/20/19 23:11 2 mg ONETIME ONE Administration Sodium Chloride 1,000 mls @ 999 mls/hr 11/20/19 19:21 11/20/19 20:52 Normal Saline IV 11/20/19 20:21 999 mls/hr BOLUS ONE Administration Iopamidol 100 ml 11/20/19 21:17 11/20/19 21:55 Isovue Multipack-370 (76%) IVPUSH 11/20/19 21:18 100 ml ONETIME STA Administration Ondansetron HCl 4 mg 11/20/19 19:21 11/20/19 20:52 Zofran IVPUSH 11/20/19 19:22 4 mg ONETIME ONE Administration Sodium Chloride 10 ml 11/20/19 19:21 Saline Flush FLUSH ASDIRECTED PRN Keep Vein Open Sodium Chloride 2.5 ml 11/20/19 19:21 Saline Flush FLUSH ASDIRECTED PRN Keep Vein Open Departure - Departure Time of Disposition: 00:42 Disposition: Home, Self-Care 01 Clinical Impression: Abdominal pain Instructions: Abdominal Pain, Adult, [id number] Referrals: PCP,None [Primary Care Provider] - Forms: ED Department Discharge Additional Instructions: Continue your normal home medications Follow-up closely with your doctors -call tomorrow for further instructions For any concerns Sepsis Event Note - Evaluation Sepsis Screening Result: No Definite Risk - Focused Exam Vital Signs: Vital Signs Temp Pulse Resp BP Pulse Ox 11/21/19 00:35 36.3 C 99 155/79 H 100 11/20/19 23:21 36.7 C 86 18 150/85 H 100 11/20/19 20:55 36.6 C 86 16 156/78 H 100 11/20/19 18:54 36.9 C 88 16 142/83 H 100 Date Exam was Performed: 11/21/19 Time Exam was Performed: 02:59 - My Orders Last 24 Hours: My Active Orders 11/20/19 19:21 Saline Lock Insert [OM.PC] Stat - Assessment/Plan Last 24 Hours: My Active Orders 11/20/19 19:21 Saline Lock Insert [OM.PC] Stat
[2019-11-20] MEDS: Ondansetron 4 MG/2 ML SDV IVPUSH ONE ×2 (20:17→20:52)
[2019-11-20] MEDS: Sodium Chloride 0.9% 1,000 ML IV ONE ×2 (20:17→20:52)
[2019-11-20 20:35] LABS: BLOOD UREA NITROGEN,BUN 25 mg/dL (7.0-18.0); CARBON DIOXIDE,CO2 25.1 mmol/L (21.0-32.0); CHLORIDE,CL 103 mmol/L (98-107); GLUCOSE RANDOM 215 mg/dL (74-106); LIPASE 174 U/L (73-393); POTASSIUM,K 3.4 mmol/L (3.5-5.1); SODIUM,NA 139 mmol/L (136-145)
[2019-11-20] MEDS ORDERED: Iopamidol 755 MG/ML 200 ML Multipack Bottle IVPUSH STA (21:17)
--- NOTE | 2019-11-20 22:47 | CT ---
INDICATION: Abdominal pain. Metastatic colon cancer. TECHNIQUE: CT abdomen and pelvis acquired with IV contrast. 100 mL of Isovue 370 administered. COMPARISON: 11/01/2019 FINDINGS: Lower chest: Unremarkable. A cardiac pacer lead. Liver: Multiple hepatic metastases again seen. Multiple calcified hepatic granulomas. Spleen: Multiple splenic granulomas again seen. Pancreas: Unremarkable. Gallbladder and bile ducts: Cholecystectomy. Apparent mild enhancement along the wall of the proximal extrahepatic bile duct, better seen on the coronal images, without significant biliary dilatation. Adrenal glands: Unremarkable. Kidneys: Mild renal pelviectasis without ureteral dilatation. Subcentimeter left renal low density lesions which could represent cysts. GI tract: Mild gastric antral wall thickening, more pronounced posteriorly, versus underdistention. No high-grade mechanical bowel obstruction. A focally dilated short small bowel segment in the anterior pelvis, with decreased caliber of the adjacent small bowel segment at the midline, in the region of a small lower mesenteric metastatic deposit seen on images 100-103 of series 201, however more proximal small bowel segments are not abnormally dilated. A normal appendix. A descending colon anastomotic suture again seen. Vascular structures: Atherosclerotic changes. Likely contrast mixing in central mesenteric veins. A small luminal hypodensity in the central left portal vein on image 38 could be related to contrast mixing as well. Lymph nodes: No abnormally enlarged lymph nodes. [place] subcentimeter central mesenteric lymph nodes again seen. Miscellaneous: Metastatic deposits again seen within and underlying the anterior abdominal wall musculature, with mildly increased size of a dominant lesion underlying the left lower abdominal wall on image 201, measuring 2.8 x 1.9 cm compared to 2.4 x 1.6 cm on the prior. Foci of internal necrosis in many of the metastatic deposits. Irregular and spiculated metastatic deposits again seen in the central mesentery, mildly increased in size, including metastatic deposits involving the serosal surface of small bowel segment on image 85 of series 201 in the central abdomen, and image 79 of series 201 in the left abdomen. Small metastatic deposits in the lateral left omental fat and involving the overlying lateral left abdominal wall musculature. Tiny posterior right perihepatic free fluid. No free air. Pelvic Organs: Hysterectomy. A complex, bilobed mixed solid and cystic mass again seen in the left pelvis, indenting versus invading the superior left bladder wall, measuring up to 5.8 x 4.9 x 4.3 cm, increased in size. Bones: Unremarkable for age. IMPRESSION: Mild interval progression of metastatic disease as described above. A complex bilobed cystic and solid left pelvic mass, indenting versus invading the urinary bladder. The appearance of this lesion is more suggestive of a primary ovarian malignant neoplasm, although ovarian/adnexal metastasis is not excluded. Follow-up, as clinically indicated. A focally dilated short small bowel segment in the anterior pelvis. Early partial obstruction related to regional mesentery metastatic deposit is not excluded, however, otherwise, there is no abnormal small bowel dilatation. Correlate clinically. Apparent mild enhancement along the extrahepatic bile duct wall. Correlate with hepatic enzymes to exclude cholangitis. Mild asymmetrical thickening of the gastric antral wall which could be related to underdistention, however correlate clinically for PUD or regional gastritis, and consider follow-up evaluation given the asymmetric appearance, to exclude a lesion. Dictated by Mich Rodriguez MD @ 11/20/2019 10:45:50 PM Please note that all CT scans at this facility use dose modulation, iterative reconstruction, and/or weight-based dosing when appropriate to reduce radiation dose to as low as reasonably achievable. Dictated by: Mich Rodriguez MD @ 11/20/2019 22:46:06 (Electronically Signed)
[2019-11-21 00:36] VITALS: BP 155/79; PULSE 99
== END 2019-11-21 01:00 | disposition home or self-care (01) ==
LOC: MW.ED 18:43
DX: R10.9 Unspecified abdominal pain (principal); R11.2 Nausea with vomiting, unspecified; I10 Essential (primary) hypertension; E78.00 Pure hypercholesterolemia, unspecified; F41.9 Anxiety disorder, unspecified; F32.9 Major depressive disorder, single episode, unspecified; E11.9 Type 2 diabetes mellitus without complications; Z79.4 Long term (current) use of insulin; Z79.899 Other long term (current) drug therapy; Z88.6 Allergy status to analgesic agent; Z88.5 Allergy status to narcotic agent; Z88.8 Allergy status to other drugs, medicaments and biological substances; Z85.038 Personal history of other malignant neoplasm of large intestine
CPT/HCPCS: 74177; 80053; 81001; 83690; 85025; 93005; 96361; 96374; 96375; 96376; 99285; J1170; J1642; J2405; J7030; Q9967; 99284

== ENCOUNTER 2019-12-13 14:22 | Inpatient (IN) | payer OTHER ==
--- NOTE | 2019-12-13 14:50 | PCM.HP.2 ---
H&P History of Present Illness - General Date of Service: 12/13/19 Admit Problem/Dx: Admission Diagnosis/Problem Admission Diagnosis/Problem Abdominal pain Source of Information: Patient History Limitations: Reports: No Limitations - History of Present Illness Initial Comments - Free Text/Narative: This 59 year old female with pmh of stage IV metastatic colon cancer, mets to liver, peritoneum, and abdominal wall, HTN, CAD, DM TYpe 2, and pacemaker presents to Oncology today for scheduled appointment with worsening abdominal pain, constipation x [address] Cho recommended admission for further care and pain management. She reports she has had no BM in 4 days, normally this is daily. She reports nausea and decrease appetite as well. She is unable to keep meds down at home. She reports feeling generalized malaise and some chills intermittently at home. No chest pain or palpitations. No dysuria. No neurological deficits. - Related Data Allergies/Adverse Reactions: Allergies Allergy/AdvReac Type Severity Reaction Status Date / Time hydrocodone Allergy Unknown Hives Verified 12/13/19 14:53 ibuprofen Allergy Unknown Hives Verified 12/13/19 14:53 morphine Allergy Unknown Seizure Verified 12/13/19 14:53 nitroglycerin Allergy Unknown Difficulty Verified 12/13/19 14:53 Breathing caffeine Allergy Vomiting Verified 12/13/19 14:53 cyanocobalamin (vitamin B12) Allergy Nausea and Verified 12/13/19 14:53 Vomiting diphenhydramine HCl Allergy Excitabilit Verified 12/13/19 14:53 [From Benadryl] y pyridoxine Allergy Nausea and Verified 12/13/19 14:53 Vomiting Home Medications: Home Meds metFORMIN [Glucophage] 1,000 mg PO BIDMEALS 05/09/14 [History] LORazepam [Ativan] 1 mg PO BEDTIME PRN 12/26/15 [History] Insulin Glarg,Human.Rec.Analog [LantUS Solostar] 34 units SUBCUT BID 08/06/17 [ History] Pantoprazole [ProTONIX] 40 mg PO DAILY 08/06/17 [History] Insulin Aspart [NovoLOG] 14 unit SUBCUT TIDAC 02/04/18 [History] Loperamide [Imodium] 2 mg PO Q4H PRN MDD loose stool 07/20/18 [History] Estrogens, Conjugated [Premarin Vaginal Crm] 0.5 gram VAG ASDIRECTED 03/01/19 [ History] Loratadine [Claritin] 10 mg PO DAILY PRN 03/01/19 [History] atorvaSTATin Calcium [Lipitor] 80 mg PO DAILY 03/01/19 [History] Valsartan 160 mg PO DAILY 30 Days #30 tablet 03/02/19 [Rx] hydroCHLOROthiazide [Hydrochlorothiazide] 25 mg PO DAILY 30 Days #30 tablet [Rx] Diphenhyd/Lidocaine/Nystatin [Magic Mouthwash] 5 ml PO Q4H PRN MDD Oral Ulcers 11/01/19 [History] Magnesium Oxide 400 mg PO BID 11/01/19 [History] Ondansetron [Zofran ODT] 4 mg PO TID PRN 11/01/19 [History] Trifluridine/Tipiracil HCl [Lonsurf 20 mg-8.19 mg Tablet] 1 each PO ASDIRECTED 11/01/19 [History] Docusate Sodium [Colace] 100 mg PO BID PRN cap 11/06/19 [Rx] HYDROmorphone [Dilaudid] 2 mg PO Q6H PRN #10 tablet 11/06/19 [Rx] polyethylene glycoL 3350 [MiraLAX] 17 gm PO Q72H PRN #1 packet 11/06/19 [Rx] Past Medical History HEENT History: Reports: Impaired Vision Other HEENT History: wears glasses Cardiovascular History: Reports: CAD, High Cholesterol, Hypertension, Pacemaker Respiratory History: Reports: Pneumothorax Gastrointestinal History: Reports: GERD Other Gastrointestinal History: hernia, colon CA Genitourinary History: Reports: UTI, Recurrent 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: Reports: , Other (See Below) Other OB/BYN History: x2 Musculoskeletal History: Reports: None Neurological History: Reports: None Psychiatric History: Reports: Anxiety, Depression Endocrine/Metabolic History: Reports: Diabetes, Type II Hematologic History: Reports: None Immunologic History: Reports: None Oncologic (Cancer) History: Reports: Colon, Liver, Metastatic Dermatologic History: Reports: None - Infectious Disease History Infectious Disease History: Reports: Measles, Other (See Below) Other Infectious Disease History: childhood - Past Surgical History HEENT Surgical History: Reports: Adenoidectomy, Tonsillectomy Cardiovascular Surgical History: Reports: None Respiratory Surgical History: Reports: Other (See Below) Other Respiratory Surgeries/Procedures: chest tube placements GI Surgical History: Reports: Cholecystectomy, Colon, Hernia Repair/Other Other GI Surgeries/Procedures: colectomy x2 Female Surgical History: Reports: Section, Hysterectomy, Salpingo- Oophorectomy Other Female Surgeries/Procedures: X2 Endocrine Surgical History: Reports: None Neurological Surgical History: Reports: None Musculoskeletal Surgical History: Reports: None, Other (See Below) Other Musculoskeletal Surgeries/Procedures:: rigth knee pain Oncologic Surgical History: Reports: Other (See Below) Other Oncologic Surgeries/Procedures: presently on chemo treatment last done on 01/20/19 Dermatological Surgical History: Reports: None Social & Family History - Family History Family Medical History: Noncontributory GI: Reports: None - Caffeine Use Caffeine Use: Reports: None Caffeine Use Comment: allergic to caffeine - Living Situation & Occupation Living situation: Reports: H&P Review of Systems - Review of Systems: Review Of Systems: See Below General: Reports: Chills, Malaise, Weakness, Fatigue, Decreased Appetite HEENT: Reports: Headaches (mild intermittent.). Denies: Sinus Congestion, Sore Throat Pulmonary: Reports: No Symptoms. Denies: Shortness of Breath, Cough, Sputum Cardiovascular: Denies: Chest Pain, Palpitations, Edema Gastrointestinal: Reports: Abdominal Pain, Constipation, Decreased Appetite, Nausea, Vomiting. Denies: Black Stool, Bloody Stool, Hematemesis Genitourinary: Reports: No Symptoms. Denies: Dysuria, Frequency, Burning Skin: Reports: No Symptoms Psychiatric: Reports: No Symptoms Immunologic: Reports: No Symptoms Exam - Exam Exam: See Below - Vital Signs Vital Signs: Last Vital Signs Temp 98 F 12/13/19 14:32 Pulse 81 12/13/19 14:32 Resp 20 12/13/19 14:32 BP 124/82 12/13/19 14:32 Pulse Ox 99 12/13/19 14:32 Weight: 57.6 kg - Exam General: Alert, Oriented, Cooperative HEENT: Conjunctiva Clear, Pupils Equal. No: Mucosa Moist & [place] (dry) Lungs: Clear to Auscultation, Normal Respiratory Effort Cardiovascular: Regular Rate, Regular Rhythm GI/Abdominal Exam: Normal Bowel Sounds, Soft, Tender, Mass (R abdomen) Back Exam: Normal Inspection, Full Range of Motion Extremities: Normal Inspection, Normal Range of Motion, Non-Tender, No Pedal Edema Skin: Other (erythema with scant purulent drainage to 3rd toe on R foot. She recently got new shoes and this started. ) Neuro Extensive - Mental Status: Alert, Oriented x3, Normal Mood/Affect - Patient Data Result Diagrams: 12/13/19 15:03 12/13/19 15:03 Sepsis Event Note - Focused Exam Vital Signs: Vital Signs Temp Pulse Resp BP Pulse Ox 12/13/19 14:32 98 F 81 20 124/82 99 Date Exam was Performed: 12/13/19 Time Exam was Performed: 16:29 - Problem List (1) Abdominal pain SNOMED Code(s): 44220824 ICD Code: R10.9 - UNSPECIFIED ABDOMINAL PAIN Status: Acute Current Visit : No (2) Metastatic colon cancer in female SNOMED Code(s): 814001190, 921892822 ICD Code: C18.9 - MALIGNANT NEOPLASM OF COLON, UNSPECIFIED Status: Acute Priority: High Current Visit: No (3) Diabetes type 2, controlled SNOMED Code(s): 00429500, 480799348 ICD Code: E11.9 - TYPE 2 DIABETES MELLITUS WITHOUT COMPLICATIONS Status: Chronic Priority: High Current Visit: No Qualifiers: Diabetes mellitus salvage determiner insulin use: without alf use Diabetes mellitus complication status: without complication Qualified Code(s): E11.9 - Type 2 diabetes mellitus without complications (4) GERD (gastroesophageal reflux disease) SNOMED Code(s): 993712302 ICD Code: K21.9 - GASTRO-ESOPHAGEAL REFLUX DISEASE WITHOUT ESOPHAGITIS Status: Chronic Current Visit: No (5) Hypertension SNOMED Code(s): 83627496 ICD Code: I10 - ESSENTIAL (PRIMARY) HYPERTENSION Status: Chronic Current Visit: No Qualifiers: Hypertension type: unspecified Qualified Code(s): I10 - Essential (primary ) hypertension (6) Pacemaker SNOMED Code(s): 455185017 ICD Code: Z95.0 - PRESENCE OF CARDIAC PACEMAKER Status: Chronic Current Visit: No Problem List Initiated/Reviewed/Updated: Yes Orders Last 24hrs: Active Orders 24 hr Category Date Time Status Patient Status [ADT] Routine ADT 12/13/19 14:39 Ordered Intake and Output [RC] QSHIFT Care 12/13/19 14:41 Ordered May Shower [RC] ASDIRECTED Care 12/13/19 14:39 Ordered Oxygen Therapy [RC] PRN Care 12/13/19 14:39 Ordered Up With Assistance [RC] ASDIRECTED Care 12/13/19 14:39 Ordered VTE/DVT Education [RC] PER UNIT ROUTINE Care 12/13/19 14:39 Ordered Vital Signs [RC] Q4H Care 12/13/19 14:39 Ordered Nothing Per Oral Diet [DIET] Diet 12/13/19 Dinner Ordered Abdomen Pelvis wo Cont [CT] Urgent Exams 12/13/19 14:43 Ordered CBC WITH AUTO DIFF [HEME] Routine Lab 12/13/19 14:39 Ordered COMPREHENSIVE METABOLIC PN,CMP [CHEM] Routine Lab 12/13/19 14:39 Ordered MAGNESIUM [CHEM] Routine Lab 12/13/19 14:39 Ordered PHOSPHORUS [CHEM] Routine Lab 12/13/19 14:39 Ordered HYDROmorphone [Dilaudid] Med 12/13/19 14:39 Ordered 1 mg IVPUSH Q3H PRN LORazepam [Ativan] Med 12/13/19 14:43 Ordered 1 mg IVPUSH Q6H PRN Ondansetron [Zofran] Med 12/13/19 14:39 Ordered 4 mg IVPUSH Q4H PRN Sodium Chloride 0.9% [Normal Saline] 1,000 ml Med 12/13/19 14:45 Ordered IV Q8H Resuscitation Status Routine Resus Stat 12/13/19 14:39 Ordered Medication Orders Hydromorphone HCl (Dilaudid) 1 mg IVPUSH Q3H PRN PRN Reason: Pain (severe 7-10) Sodium Chloride (Normal Saline) 1,000 mls @ 125 mls/hr IV Q8H MARIA T Lorazepam (Ativan) 1 mg IVPUSH Q6H PRN PRN Reason: Anxiety Ondansetron HCl (Zofran) 4 mg IVPUSH Q4H PRN PRN Reason: Nausea Assessment/Plan Comment:: This 59 year old female admitted with worsening abdominal pain, likely secondary to colon ca. 1. Abdominal pain: - No leukocytosis noted, elevated bilirubin from baseline - Obtain CT abdomen/pelvis rule out obstruction - NPO for now - Dilaudid for pain PRN - Zofran prn nausea - NS 125 ml/ hr - Likely related to metastatic colon ca, ruling out obstruction 2. Cellulitis to L distal 3rd phalanx - Rocephin IV - Monitor. 3. Metastatic colon cancer: - Goals of care addressed by my self as well as Dr Baldwin. - Currently continues to want to live as long as possible, and would like to remain FULL CODE. 4. Dm Type 2: - Glucose checks every 6 hours with Novolog SSI 5. HTN - Stable, monitor for now. restart meds when nausea improves VTE prophylaxis: heparin GI prophylaxis: Protonix Dispo: 2-3 days pending improvement. - Mortality Measure Prognosis:: Poor
[2019-12-13] MEDS: Sodium Chloride 0.9% 1,000 ML IV SCH ×2 (15:11→23:49)
[2019-12-13] MEDS: Ondansetron 4 MG/2 ML SDV IVPUSH PRN ×2 (15:16→20:49)
[2019-12-13] MEDS: HYDROmorphone 2 MG/ML Syringe IVPUSH PRN ×3 (15:18→22:02)
[2019-12-13 15:40] LABS: BLOOD UREA NITROGEN,BUN 16 mg/dL (7.0-18.0); CARBON DIOXIDE,CO2 22.1 mmol/L (21.0-32.0); CHLORIDE,CL 97 mmol/L (98-107); GLUCOSE RANDOM 178 mg/dL (74-106); POTASSIUM,K 3.6 mmol/L (3.5-5.1); SODIUM,NA 133 mmol/L (136-145)
[2019-12-13] MEDS ORDERED: Potassium Phosphates 15 MMOLE in Sodium Chloride 0.9% 250 ML IV ONE ×2 (16:38→17:00)
[2019-12-13] MEDS: cefTRIAXone 1 GM in Premix Bag 1 BAG IV SCH (17:07)
[2019-12-13] MEDS: Pantoprazole 40 MG in Sodium Chloride 0.9% 10 ML IV SCH (17:10)
--- NOTE | 2019-12-13 17:13 | CT ---
CT abdomen and pelvis Technique: Multiple axial sections were obtained from above the dome of the diaphragm inferiorly through the pubic symphysis. Intravenous and oral contrast was not utilized. Comparison: Prior CT abdomen and pelvis study of 1818. Findings: Numerous calcifications are seen within the liver and spleen which appears stable. Multiple low density lesions are seen within the right and left lobes of the liver which appear to be increasing in size from prior study presumably due to worsening liver metastasis. Visualized lung bases show nothing acute. Adrenal glands show no nodule. Pancreas is within normal limits. Kidneys show us no hydronephrosis or discrete mass. Aorta shows atherosclerotic change without aneurysm. Abdominal wall masses are noted which have slightly increased in size. Larger finding measures about 4.3 cm comparing to 3.5 cm in similar measurement plane. Enlarging pelvic mass is noted which indents the bladder and difficult to exclude bladder invasion. This finding measures about 6.2 cm in oblique transverse measurement which measured about 4.9 cm on prior study. No bowel dilatation is appreciated. Appendix not visualized with certainty. Bone window settings were obtained which shows degenerative change primarily within the apophyseal joints at L5-S1. No osteolytic or osteoblastic change is seen. Impression: 1. Worsening metastatic disease as described above. 2. Increased stool within the colon. 3. Stable calcifications within the liver and spleen. Diagnostic code #9 This report was dictated in MDT
[2019-12-13] MEDS: Insulin Aspart 100 Units/ML 3 ML Pen SUBCUT SCH ×2 (17:22→23:48)
[2019-12-14] MEDS: HYDROmorphone 2 MG/ML Syringe IVPUSH PRN ×7 (01:29→21:27)
[2019-12-14] MEDS: Insulin Aspart 100 Units/ML 3 ML Pen SUBCUT SCH ×4 (04:50→21:57)
[2019-12-14 06:01] LABS: BLOOD UREA NITROGEN,BUN 12 mg/dL (7.0-18.0); CARBON DIOXIDE,CO2 23.8 mmol/L (21.0-32.0); CHLORIDE,CL 100 mmol/L (98-107); GLUCOSE RANDOM 128 mg/dL (74-106); POTASSIUM,K 3.7 mmol/L (3.5-5.1); SODIUM,NA 134 mmol/L (136-145)
[2019-12-14] MEDS: Ondansetron 4 MG/2 ML SDV IVPUSH PRN ×3 (08:05→21:41)
[2019-12-14] MEDS: Sodium Chloride 0.9% 1,000 ML IV SCH ×2 (08:20→16:24)
[2019-12-14] MEDS: Bisacodyl 10 MG Supp RECTAL SCH (09:15)
[2019-12-14] MEDS ORDERED: Magnesium Citrate Solution 296 ML Bottle PO ONE (10:18)
--- NOTE | 2019-12-14 10:31 | PCM.PN ---
- General Info Date of Service: 12/14/19 Admission Dx/Problem (Free Text): Admission Diagnosis/Problem Admission Diagnosis/Problem Abdominal pain Subjective Update: pain continues this morning, nausea a little better. definitely feels constipated. No chest pain or SOB. Functional Status: Reports: Ambulating, Urinating. Denies: Tolerating Diet - Review of Systems General: Reports: No Symptoms Pulmonary: Reports: No Symptoms. Denies: Shortness of Breath Cardiovascular: Reports: No Symptoms. Denies: Chest Pain Gastrointestinal: Reports: Abdominal Pain, Constipation, Nausea. Denies: Vomiting Genitourinary: Reports: No Symptoms. Denies: Dysuria, Frequency, Burning Musculoskeletal: Reports: No Symptoms Skin: Reports: No Symptoms Neurological: Reports: No Symptoms Psychiatric: Reports: No Symptoms - Patient Data Vitals - Most Recent: Last Vital Signs Temp 98.0 F 12/14/19 08:00 Pulse 78 12/14/19 08:00 Resp 18 12/14/19 08:00 BP 127/65 12/14/19 08:00 Pulse Ox 99 12/14/19 08:00 Weight - Most Recent: 57.6 kg I&O - Last 24 Hours: Intake & Output 12/13/19 12/14/19 12/14/19 22:59 06:59 14:59 Intake Total 0 1657 Output Total 0 400 Balance 0 1257 Lab Results Last 24 Hours: Laboratory Results - last 24 hr 12/13/19 12/13/19 12/13/19 Range/Units 15:03 15:03 17:10 WBC 10.44 (4.0-11.0) K/uL RBC 3.67 L (4.30-5.90) M/uL Hgb 11.7 L (12.0-16.0) g/dL Hct 34.1 L (36.0-46.0) % MCV 92.9 (80.0-98.0) fL MCH 31.9 (27.0-32.0) pg MCHC 34.3 (31.0-37.0) g/dL RDW Std Deviation 52.4 (28.0-62.0) fl RDW Coeff of Ej 15 (11.0-15.0) % Plt Count 196 (150-400) K/uL MPV 8.90 (7.40-12.00) fL Neut % (Auto) 74.9 (48.0-80.0) % Lymph % (Auto) 15.8 L (16.0-40.0) % Cloud % (Auto) 7.9 (0.0-15.0) % Eos % (Auto) 1.1 (0.0-7.0) % Baso % (Auto) 0.3 (0.0-1.5) % Neut # (Auto) 7.8 H (1.4-5.7) K/uL Lymph # (Auto) 1.7 (0.6-2.4) K/uL Cloud # (Auto) 0.8 (0.0-0.8) K/uL Eos # (Auto) 0.1 (0.0-0.7) K/uL Baso # (Auto) 0.0 (0.0-0.1) K/uL Nucleated RBC % 0.0 /100WBC Nucleated RBCs # 0 K/uL Sodium 133 L (136-145) mmol/L Potassium 3.6 (3.5-5.1) mmol/L Chloride 97 L (98-107) mmol/L Carbon Dioxide 22.1 (21.0-32.0) mmol/L BUN 16 (7.0-18.0) mg/dL Creatinine 0.9 (0.6-1.0) mg/dL Est Cr Clr Drug Dosing 53.89 mL/min Estimated GFR (MDRD) > 60.0 ml/min Glucose 178 H (74-106) mg/dL POC Glucose 141 H (60-110) mg/dL Calcium 8.6 (8.5-10.1) mg/dL Phosphorus 2.2 L (2.6-4.7) mg/dL Magnesium 1.8 (1.8-2.4) mg/dL Total Bilirubin 2.8 H (0.2-1.0) mg/dL AST 35 (15-37) IU/L ALT 26 (14-63) IU/L Alkaline Phosphatase 356 H (46-116) U/L Total Protein 7.5 (6.4-8.2) g/dL Albumin 3.2 L (3.4-5.0) g/dL Globulin 4.3 H (2.6-4.0) g/dL Albumin/Globulin Ratio 0.7 L (0.9-1.6) 12/13/19 12/14/19 12/14/19 Range/Units 22:47 04:46 05:30 WBC 8.77 (4.0-11.0) K/uL RBC 3.43 L (4.30-5.90) M/uL Hgb 10.8 L (12.0-16.0) g/dL Hct 32.0 L (36.0-46.0) % MCV 93.3 (80.0-98.0) fL MCH 31.5 (27.0-32.0) pg MCHC 33.8 (31.0-37.0) g/dL RDW Std Deviation 52.1 (28.0-62.0) fl RDW Coeff of Ej 15 (11.0-15.0) % Plt Count 158 (150-400) K/uL MPV 8.80 (7.40-12.00) fL Neut % (Auto) 69.3 (48.0-80.0) % Lymph % (Auto) 19.4 (16.0-40.0) % Cloud % (Auto) 9.1 (0.0-15.0) % Eos % (Auto) 1.9 (0.0-7.0) % Baso % (Auto) 0.3 (0.0-1.5) % Neut # (Auto) 6.1 H (1.4-5.7) K/uL Lymph # (Auto) 1.7 (0.6-2.4) K/uL Cloud # (Auto) 0.8 (0.0-0.8) K/uL Eos # (Auto) 0.2 (0.0-0.7) K/uL Baso # (Auto) 0.0 (0.0-0.1) K/uL Nucleated RBC % 0.0 /100WBC Nucleated RBCs # 0 K/uL Sodium (136-145) mmol/L Potassium (3.5-5.1) mmol/L Chloride (98-107) mmol/L Carbon Dioxide (21.0-32.0) mmol/L BUN (7.0-18.0) mg/dL Creatinine (0.6-1.0) mg/dL Est Cr Clr Drug Dosing mL/min Estimated GFR (MDRD) ml/min Glucose (74-106) mg/dL POC Glucose 141 H 120 H (60-110) mg/dL Calcium (8.5-10.1) mg/dL Phosphorus (2.6-4.7) mg/dL Magnesium (1.8-2.4) mg/dL Total Bilirubin (0.2-1.0) mg/dL AST (15-37) IU/L ALT (14-63) IU/L Alkaline Phosphatase (46-116) U/L Total Protein (6.4-8.2) g/dL Albumin (3.4-5.0) g/dL Globulin (2.6-4.0) g/dL Albumin/Globulin Ratio (0.9-1.6) 12/14/19 12/14/19 Range/Units 05:30 10:01 WBC (4.0-11.0) K/uL RBC (4.30-5.90) M/uL Hgb (12.0-16.0) g/dL Hct (36.0-46.0) % MCV (80.0-98.0) fL MCH (27.0-32.0) pg MCHC (31.0-37.0) g/dL RDW Std Deviation (28.0-62.0) fl RDW Coeff of Ej (11.0-15.0) % Plt Count (150-400) K/uL MPV (7.40-12.00) fL Neut % (Auto) (48.0-80.0) % Lymph % (Auto) (16.0-40.0) % Cloud % (Auto) (0.0-15.0) % Eos % (Auto) (0.0-7.0) % Baso % (Auto) (0.0-1.5) % Neut # (Auto) (1.4-5.7) K/uL Lymph # (Auto) (0.6-2.4) K/uL Cloud # (Auto) (0.0-0.8) K/uL Eos # (Auto) (0.0-0.7) K/uL Baso # (Auto) (0.0-0.1) K/uL Nucleated RBC % /100WBC Nucleated RBCs # K/uL Sodium 134 L (136-145) mmol/L Potassium 3.7 (3.5-5.1) mmol/L Chloride 100 (98-107) mmol/L Carbon Dioxide 23.8 (21.0-32.0) mmol/L BUN 12 (7.0-18.0) mg/dL Creatinine 0.9 (0.6-1.0) mg/dL Est Cr Clr Drug Dosing 53.89 mL/min Estimated GFR (MDRD) > 60.0 ml/min Glucose 128 H (74-106) mg/dL POC Glucose 127 H (60-110) mg/dL Calcium 7.8 L (8.5-10.1) mg/dL Phosphorus (2.6-4.7) mg/dL Magnesium (1.8-2.4) mg/dL Total Bilirubin 2.3 H (0.2-1.0) mg/dL AST 34 (15-37) IU/L ALT 22 (14-63) IU/L Alkaline Phosphatase 309 H (46-116) U/L Total Protein 6.6 (6.4-8.2) g/dL Albumin 2.8 L (3.4-5.0) g/dL Globulin 3.8 (2.6-4.0) g/dL Albumin/Globulin Ratio 0.7 L (0.9-1.6) Med Orders - Current: Current Medications Bisacodyl (Dulcolax) 10 mg RECTAL DAILY [facility] Last Admin: 12/14/19 09:15 Dose: 10 mg Docusate Sodium (Colace) 200 mg PO DAILY [facility] Hydromorphone HCl (Dilaudid) 1 mg IVPUSH Q3H PRN PRN Reason: Pain (severe 7-10) Last Admin: 12/14/19 07:57 Dose: 1 mg Sodium Chloride (Normal Saline) 1,000 mls @ 125 mls/hr IV Q8H [facility] Last Admin: 12/14/19 08:20 Dose: 125 mls/hr Ceftriaxone Sodium/Dextrose 1 (gm/ Premix) 50 mls @ 100 mls/hr IV Q24H [facility] Last Admin: 12/13/19 17:07 Dose: 100 mls/hr Pantoprazole Sodium 40 mg/ (Sodium Chloride) 10 mls @ 300 mls/hr IV Q24H [facility] Last Admin: 03/11/20 17:10 Dose: 300 mls/hr Insulin Aspart (Novolog) 0 unit SUBCUT Q6H MARIA T; Protocol Last Admin: 12/14/19 10:13 Dose: Not Given Lorazepam (Ativan) 1 mg IVPUSH Q6H PRN PRN Reason: Anxiety Ondansetron HCl (Zofran) 4 mg IVPUSH Q4H PRN PRN Reason: Nausea Last Admin: 12/14/19 08:05 Dose: 4 mg Discontinued Medications Potassium Phosphate 15 mmole/ (Sodium Chloride) 255 mls @ 63.75 mls/hr IV NOW ONE Stop: 12/13/19 20:59 Last Admin: 12/13/19 18:14 Dose: 63.75 mls/hr Magnesium Citrate (Citrate Of Magnesia) 0 ml PO ONETIME ONE Stop: 12/14/19 10:19 - Exam General: Alert, Oriented, Cooperative Lungs: Clear to Auscultation, Normal Respiratory Effort Cardiovascular: Regular Rate, Regular Rhythm GI/Abdominal Exam: Normal Bowel Sounds, Soft, No Distention, Tender, Mass. No: Guarding Extremities: Normal Inspection, Normal Range of Motion, Non-Tender Wound/Incisions: Erythema Improving (R 3rd distal phalanx. ) Neurological: No New Focal Deficit Psy/Mental Status: Alert, Normal Affect, Normal Mood Sepsis Event Note - Evaluation Sepsis Screening Result: No Definite Risk - Focused Exam Vital Signs: Vital Signs Temp Pulse Resp BP Pulse Ox 12/14/19 08:00 98.0 F 78 18 127/65 99 12/14/19 04:00 98 F 70 18 141/70 H 98 12/13/19 23:50 98.6 F 76 18 124/68 96 Date Exam was Performed: 12/14/19 Time Exam was Performed: 13:00 - Problem List & Annotations (1) Abdominal pain SNOMED Code(s): 37542789 Code(s): R10.9 - UNSPECIFIED ABDOMINAL PAIN Status: Acute Current Visit: No (2) Metastatic colon cancer in female SNOMED Code(s): 758753771, 528949256 Code(s): C18.9 - MALIGNANT NEOPLASM OF COLON, UNSPECIFIED Status: Acute Priority: High Current Visit: No (3) Diabetes type 2, controlled SNOMED Code(s): 49992814, 484768303 Code(s): E11.9 - TYPE 2 DIABETES MELLITUS WITHOUT COMPLICATIONS Status: Chronic Priority: High Current Visit: No Qualifiers: Diabetes mellitus fpc insulin use: without fpc use Diabetes mellitus complication status: without complication Qualified Code(s): E11.9 - Type 2 diabetes mellitus without complications (4) GERD (gastroesophageal reflux disease) SNOMED Code(s): 070875818 Code(s): K21.9 - GASTRO-ESOPHAGEAL REFLUX DISEASE WITHOUT ESOPHAGITIS Status: Chronic Current Visit: No (5) Hypertension SNOMED Code(s): 65832775 Code(s): I10 - ESSENTIAL (PRIMARY) HYPERTENSION Status: Chronic Current Visit: No Qualifiers: Hypertension type: unspecified Qualified Code(s): I10 - Essential (primary ) hypertension (6) Pacemaker SNOMED Code(s): 864976161 Code(s): Z95.0 - PRESENCE OF CARDIAC PACEMAKER Status: Chronic Current Visit: No - Problem List Review Problem List Initiated/Reviewed/Updated: Yes - My Orders Last 24 Hours: My Active Orders 12/13/19 14:39 Patient Status [ADT] Routine May Shower [RC] ASDIRECTED Oxygen Therapy [RC] PRN Up With Assistance [RC] ASDIRECTED VTE/DVT Education [RC] PER UNIT ROUTINE Vital Signs [RC] Q4H HYDROmorphone [Dilaudid] 1 mg IVPUSH Q3H PRN Ondansetron [Zofran] 4 mg IVPUSH Q4H PRN Resuscitation Status Routine 12/13/19 14:41 Intake and Output [RC] Q12H 12/13/19 14:43 LORazepam [Ativan] 1 mg IVPUSH Q6H PRN 12/13/19 14:45 Sodium Chloride 0.9% [Normal Saline] 1,000 ml IV Q8H 12/13/19 16:15 cefTRIAXone [Rocephin in Dextrose,Iso-Osm 1 GM/50 ML] 1 gm Premix Bag 1 bag IV Q24H 12/13/19 16:28 Blood Glucose Check, Bedside [RC] Q6H 12/13/19 16:30 Insulin Aspart [NovoLOG] See Protocol SUBCUT Q6H 12/13/19 16:45 Pantoprazole [ProTONIX IV] 40 mg Sodium Chloride 0.9% [Normal Saline] 10 ml IV Q24H 12/13/19 Dinner Nothing Per Oral Diet [DIET] 12/14/19 08:14 Enema [RC] ASDIRECTED 12/14/19 09:00 bisacodyL [Dulcolax] 10 mg RECTAL DAILY 12/14/19 10:30 Docusate Sodium [Colace] 200 mg PO DAILY 12/14/19 Lunch Clear Liquid Diet [DIET] 12/15/19 05:11 CBC WITH AUTO DIFF [HEME] AM COMPREHENSIVE METABOLIC PN,CMP [CHEM] AM 12/16/19 05:11 CBC WITH AUTO DIFF [HEME] AM COMPREHENSIVE METABOLIC PN,CMP [CHEM] AM - Plan Plan:: This 59 year old female admitted with worsening abdominal pain, likely secondary to colon ca. 1. Abdominal pain: -CT shows worsening metastatic disease, discussed this with her. She is understanding. She knows things are terminal. No obstruction noted, constipation noted. - CL diet and adv as tolerated. - Dilaudid for pain PRN - Zofran prn nausea - NS 125 ml/ hr - Mag citrate and Dulcolax supp today. If no stool enema. - Discussed needing to establish bowel regimen at home to keep constipation away. 2. Cellulitis to L distal 3rd phalanx - Rocephin IV - Improving. Continue. 3. Metastatic colon cancer: - Goals of care addressed by my self as well as Dr Baldwin. - Currently continues to want to live as long as possible, and would like to remain FULL CODE. 4. Dm Type 2: - Glucose checks every 6 hours with Novolog SSI 5. HTN - Stable, monitor for now. restart meds when nausea improves VTE prophylaxis: heparin GI prophylaxis: Protonix Dispo: 2-3 days pending improvement.
[2019-12-14] MEDS: Docusate Sodium 100 MG Cap PO SCH (10:48)
[2019-12-14] MEDS: LORazepam 2 MG/ML SDV IVPUSH PRN ×2 (13:05→21:26)
[2019-12-14] MEDS: Pantoprazole 40 MG in Sodium Chloride 0.9% 10 ML IV SCH (16:25)
[2019-12-14] MEDS: cefTRIAXone 1 GM in Premix Bag 1 BAG IV SCH (16:31)
[2019-12-15] MEDS: HYDROmorphone 2 MG/ML Syringe IVPUSH PRN ×4 (01:26→13:13)
[2019-12-15] MEDS: Sodium Chloride 0.9% 1,000 ML IV SCH ×2 (01:28→06:45)
[2019-12-15] MEDS: Insulin Aspart 100 Units/ML 3 ML Pen SUBCUT SCH (04:30)
[2019-12-15] MEDS: LORazepam 2 MG/ML SDV IVPUSH PRN (06:28)
[2019-12-15 06:40] LABS: BLOOD UREA NITROGEN,BUN 10 mg/dL (7.0-18.0); CARBON DIOXIDE,CO2 21.6 mmol/L (21.0-32.0); CHLORIDE,CL 102 mmol/L (98-107); GLUCOSE RANDOM 102 mg/dL (74-106); POTASSIUM,K 3.6 mmol/L (3.5-5.1); SODIUM,NA 137 mmol/L (136-145)
[2019-12-15] MEDS ORDERED: Bisacodyl 10 MG Supp RECTAL PRN (09:47)
--- NOTE | 2019-12-15 09:47 | PCM.PN ---
- General Info Date of Service: 12/15/19 Admission Dx/Problem (Free Text): Admission Diagnosis/Problem Admission Diagnosis/Problem Abdominal pain Subjective Update: Feeling improved today. Had BMs overnight, feels improved from constipation stand point. Nausea is intermittent. No chest pain or SOB. Abdominal pain continues. Functional Status: Reports: Pain Controlled, Ambulating, Urinating - Review of Systems General: Reports: Weakness HEENT: Reports: No Symptoms Pulmonary: Reports: No Symptoms. Denies: Shortness of Breath Cardiovascular: Reports: No Symptoms. Denies: Chest Pain Gastrointestinal: Reports: Abdominal Pain, Nausea. Denies: Constipation, Vomiting Genitourinary: Reports: No Symptoms. Denies: Dysuria, Frequency, Burning Skin: Reports: No Symptoms Neurological: Reports: No Symptoms Psychiatric: Reports: No Symptoms - Patient Data Vitals - Most Recent: Last Vital Signs Temp 97.9 F 12/15/19 07:00 Pulse 85 12/15/19 07:00 Resp 14 12/15/19 07:00 BP 133/65 12/15/19 07:00 Pulse Ox 95 12/15/19 07:00 Weight - Most Recent: 57.6 kg I&O - Last 24 Hours: Intake & Output 12/14/19 12/15/19 12/15/19 22:59 06:59 14:59 Intake Total 1492 Balance 1492 Lab Results Last 24 Hours: Laboratory Results - last 24 hr 12/14/19 12/14/19 12/14/19 Range/Units 10:01 17:06 18:19 WBC (4.0-11.0) K/uL RBC (4.30-5.90) M/uL Hgb (12.0-16.0) g/dL Hct (36.0-46.0) % MCV (80.0-98.0) fL MCH (27.0-32.0) pg MCHC (31.0-37.0) g/dL RDW Std Deviation (28.0-62.0) fl RDW Coeff of Ej (11.0-15.0) % Plt Count (150-400) K/uL MPV (7.40-12.00) fL Neut % (Auto) (48.0-80.0) % Lymph % (Auto) (16.0-40.0) % [place] % (Auto) (0.0-15.0) % Eos % (Auto) (0.0-7.0) % Baso % (Auto) (0.0-1.5) % Neut # (Auto) (1.4-5.7) K/uL Lymph # (Auto) (0.6-2.4) K/uL [place] # (Auto) (0.0-0.8) K/uL Eos # (Auto) (0.0-0.7) K/uL Baso # (Auto) (0.0-0.1) K/uL Nucleated RBC % /100WBC Nucleated RBCs # K/uL Sodium (136-145) mmol/L Potassium (3.5-5.1) mmol/L Chloride (98-107) mmol/L Carbon Dioxide (21.0-32.0) mmol/L BUN (7.0-18.0) mg/dL Creatinine (0.6-1.0) mg/dL Est Cr Clr Drug Dosing mL/min Estimated GFR (MDRD) ml/min Glucose (74-106) mg/dL POC Glucose 127 H 167 H (60-110) mg/dL Calcium (8.5-10.1) mg/dL Total Bilirubin (0.2-1.0) mg/dL AST (15-37) IU/L ALT (14-63) IU/L Alkaline Phosphatase (46-116) U/L Total Protein (6.4-8.2) g/dL Albumin (3.4-5.0) g/dL Globulin (2.6-4.0) g/dL Albumin/Globulin Ratio (0.9-1.6) Urine Color YELLOW Urine Appearance HAZY Urine pH 6.5 (5.0-8.0) Ur Specific [place] 1.025 (1.001-1.035) Urine Protein NEGATIVE (NEGATIVE) mg/dL Urine Glucose (UA) NEGATIVE (NEGATIVE) mg/dL Urine Ketones 40 H (NEGATIVE) mg/dL Urine Occult Blood NEGATIVE (NEGATIVE) Urine Nitrite NEGATIVE (NEGATIVE) Urine Bilirubin SMALL H (NEGATIVE) Urine Ictotest NEGATIVE Urine Urobilinogen 2.0 H (<2.0) EU/dL Ur Leukocyte Esterase NEGATIVE (NEGATIVE) 12/14/19 12/15/19 12/15/19 Range/Units 21:57 06:12 06:12 WBC 7.02 (4.0-11.0) K/uL RBC 3.34 L (4.30-5.90) M/uL Hgb 10.5 L (12.0-16.0) g/dL Hct 31.1 L (36.0-46.0) % MCV 93.1 (80.0-98.0) fL MCH 31.4 (27.0-32.0) pg MCHC 33.8 (31.0-37.0) g/dL RDW Std Deviation 52.1 (28.0-62.0) fl RDW Coeff of Ej 15 (11.0-15.0) % Plt Count 148 L (150-400) K/uL MPV 8.60 (7.40-12.00) fL Neut % (Auto) 69.5 (48.0-80.0) % Lymph % (Auto) 20.8 (16.0-40.0) % [place] % (Auto) 8.0 (0.0-15.0) % Eos % (Auto) 1.4 (0.0-7.0) % Baso % (Auto) 0.3 (0.0-1.5) % Neut # (Auto) 4.9 (1.4-5.7) K/uL Lymph # (Auto) 1.5 (0.6-2.4) K/uL [place] # (Auto) 0.6 (0.0-0.8) K/uL Eos # (Auto) 0.1 (0.0-0.7) K/uL Baso # (Auto) 0.0 (0.0-0.1) K/uL Nucleated RBC % 0.0 /100WBC Nucleated RBCs # 0 K/uL Sodium 137 (136-145) mmol/L Potassium 3.6 (3.5-5.1) mmol/L Chloride 102 (98-107) mmol/L Carbon Dioxide 21.6 (21.0-32.0) mmol/L BUN 10 (7.0-18.0) mg/dL Creatinine 0.8 (0.6-1.0) mg/dL Est Cr Clr Drug Dosing 60.62 mL/min Estimated GFR (MDRD) > 60.0 ml/min Glucose 102 (74-106) mg/dL POC Glucose 115 H (60-110) mg/dL Calcium 7.7 L (8.5-10.1) mg/dL Total Bilirubin 1.8 H (0.2-1.0) mg/dL AST 37 (15-37) IU/L ALT 20 (14-63) IU/L Alkaline Phosphatase 292 H (46-116) U/L Total Protein 6.1 L (6.4-8.2) g/dL Albumin 2.5 L (3.4-5.0) g/dL Globulin 3.6 (2.6-4.0) g/dL Albumin/Globulin Ratio 0.7 L (0.9-1.6) Urine Color Urine Appearance Urine pH (5.0-8.0) Ur Specific [place] (1.001-1.035) Urine Protein (NEGATIVE) mg/dL Urine Glucose (UA) (NEGATIVE) mg/dL Urine Ketones (NEGATIVE) mg/dL Urine Occult Blood (NEGATIVE) Urine Nitrite (NEGATIVE) Urine Bilirubin (NEGATIVE) Urine Ictotest Urine Urobilinogen (<2.0) EU/dL Ur Leukocyte Esterase (NEGATIVE) 12/15/19 Range/Units 06:26 WBC (4.0-11.0) K/uL RBC (4.30-5.90) M/uL Hgb (12.0-16.0) g/dL Hct (36.0-46.0) % MCV (80.0-98.0) fL MCH (27.0-32.0) pg MCHC (31.0-37.0) g/dL RDW Std Deviation (28.0-62.0) fl RDW Coeff of Ej (11.0-15.0) % Plt Count (150-400) K/uL MPV (7.40-12.00) fL Neut % (Auto) (48.0-80.0) % Lymph % (Auto) (16.0-40.0) % [place] % (Auto) (0.0-15.0) % Eos % (Auto) (0.0-7.0) % Baso % (Auto) (0.0-1.5) % Neut # (Auto) (1.4-5.7) K/uL Lymph # (Auto) (0.6-2.4) K/uL [place] # (Auto) (0.0-0.8) K/uL Eos # (Auto) (0.0-0.7) K/uL Baso # (Auto) (0.0-0.1) K/uL Nucleated RBC % /100WBC Nucleated RBCs # K/uL Sodium (136-145) mmol/L Potassium (3.5-5.1) mmol/L Chloride (98-107) mmol/L Carbon Dioxide (21.0-32.0) mmol/L BUN (7.0-18.0) mg/dL Creatinine (0.6-1.0) mg/dL Est Cr Clr Drug Dosing mL/min Estimated GFR (MDRD) ml/min Glucose (74-106) mg/dL POC Glucose 95 (60-110) mg/dL Calcium (8.5-10.1) mg/dL Total Bilirubin (0.2-1.0) mg/dL AST (15-37) IU/L ALT (14-63) IU/L Alkaline Phosphatase (46-116) U/L Total Protein (6.4-8.2) g/dL Albumin (3.4-5.0) g/dL Globulin (2.6-4.0) g/dL Albumin/Globulin Ratio (0.9-1.6) Urine Color Urine Appearance Urine pH (5.0-8.0) Ur Specific [place] (1.001-1.035) Urine Protein (NEGATIVE) mg/dL Urine Glucose (UA) (NEGATIVE) mg/dL Urine Ketones (NEGATIVE) mg/dL Urine Occult Blood (NEGATIVE) Urine Nitrite (NEGATIVE) Urine Bilirubin (NEGATIVE) Urine Ictotest Urine Urobilinogen (<2.0) EU/dL Ur Leukocyte Esterase (NEGATIVE) Med Orders - Current: Current Medications Bisacodyl (Dulcolax) 10 mg RECTAL DAILY PRN PRN Reason: Constipation Docusate Sodium (Colace) 200 mg PO DAILY [facility] Last Admin: 12/14/19 10:48 Dose: 200 mg Hydromorphone HCl (Dilaudid) 1 mg IVPUSH Q3H PRN PRN Reason: Pain (severe 7-10) Last Admin: 12/15/19 06:29 Dose: 1 mg Ceftriaxone Sodium/Dextrose 1 (gm/ Premix) 50 mls @ 100 mls/hr IV Q24H MARIA T Last Admin: 12/14/19 16:31 Dose: 100 mls/hr Pantoprazole Sodium 40 mg/ (Sodium Chloride) 10 mls @ 300 mls/hr IV Q24H MARIA T Last Admin: 12/14/19 16:25 Dose: 300 mls/hr Insulin Aspart (Novolog) 0 unit SUBCUT TIDAC [facility]; Protocol Lorazepam (Ativan) 1 mg IVPUSH Q6H PRN PRN Reason: Anxiety Last Admin: 12/15/19 06:28 Dose: 1 mg Ondansetron HCl (Zofran) 4 mg IVPUSH Q4H PRN PRN Reason: Nausea Last Admin: 12/14/19 21:41 Dose: 4 mg Discontinued Medications Bisacodyl (Dulcolax) 10 mg RECTAL DAILY [facility] Last Admin: 12/14/19 09:15 Dose: 10 mg Sodium Chloride (Normal Saline) 1,000 mls @ 125 mls/hr IV Q8H [facility] Last Admin: 12/15/19 06:45 Dose: 125 mls/hr Potassium Phosphate 15 mmole/ (Sodium Chloride) 255 mls @ 63.75 mls/hr IV NOW ONE Stop: 12/13/19 20:59 Last Admin: 12/13/19 18:14 Dose: 63.75 mls/hr Insulin Aspart (Novolog) 0 unit SUBCUT Q6H [facility]; Protocol Last Admin: 12/15/19 04:30 Dose: Not Given Magnesium Citrate (Citrate Of Magnesia) 0 ml PO ONETIME ONE Stop: 12/14/19 10:19 Last Admin: 12/14/19 10:51 Dose: 148 ml - Exam General: Alert, Oriented, Cooperative, No Acute Distress Lungs: Clear to Auscultation, Normal Respiratory Effort Cardiovascular: Regular Rate, Regular Rhythm GI/Abdominal Exam: Normal Bowel Sounds, Soft, Tender, Mass Extremities: Normal Inspection, Normal Range of Motion, Non-Tender, No Pedal Edema Wound/Incisions: Healing Well, Erythema Improving Neurological: No New Focal Deficit Psy/Mental Status: Alert, Normal Affect, Normal Mood Sepsis Event Note - Evaluation Sepsis Screening Result: No Definite Risk - Focused Exam Vital Signs: Vital Signs Temp Pulse Resp BP Pulse Ox 12/15/19 07:00 97.9 F 85 14 133/65 95 12/15/19 00:00 99.7 F 82 14 128/62 97 Date Exam was Performed: 12/15/19 Time Exam was Performed: 09:52 - Problem List & Annotations (1) Abdominal pain SNOMED Code(s): 66118834 Code(s): R10.9 - UNSPECIFIED ABDOMINAL PAIN Status: Acute Current Visit: No (2) Metastatic colon cancer in female SNOMED Code(s): 514397562, 522590032 Code(s): C18.9 - MALIGNANT NEOPLASM OF COLON, UNSPECIFIED Status: Acute Priority: High Current Visit: No (3) Diabetes type 2, controlled SNOMED Code(s): 43986133, 265997817 Code(s): E11.9 - TYPE 2 DIABETES MELLITUS WITHOUT COMPLICATIONS Status: Chronic Priority: High Current Visit: No Qualifiers: Diabetes mellitus chcf insulin use: without sterile technician use Diabetes mellitus complication status: without complication Qualified Code(s): E11.9 - Type 2 diabetes mellitus without complications (4) GERD (gastroesophageal reflux disease) SNOMED Code(s): 359440207 Code(s): K21.9 - GASTRO-ESOPHAGEAL REFLUX DISEASE WITHOUT ESOPHAGITIS Status: Chronic Current Visit: No (5) Hypertension SNOMED Code(s): 36046594 Code(s): I10 - ESSENTIAL (PRIMARY) HYPERTENSION Status: Chronic Current Visit: No Qualifiers: Hypertension type: unspecified Qualified Code(s): I10 - Essential (primary ) hypertension (6) Pacemaker SNOMED Code(s): 093553630 Code(s): Z95.0 - PRESENCE OF CARDIAC PACEMAKER Status: Chronic Current Visit: No - Problem List Review Problem List Initiated/Reviewed/Updated: Yes - My Orders Last 24 Hours: My Active Orders 12/14/19 10:30 Docusate Sodium [Colace] 200 mg PO DAILY 12/15/19 09:47 bisacodyL [Dulcolax] 10 mg RECTAL DAILY PRN 12/15/19 11:30 Insulin Aspart [NovoLOG] See Protocol SUBCUT TIDAC 12/15/19 Lunch ADA Diabetic [[place] [employer] Diet] [DIET] 12/16/19 05:11 CBC WITH AUTO DIFF [HEME] AM COMPREHENSIVE METABOLIC PN,CMP [CHEM] AM - Plan Plan:: This 59 year old female admitted with worsening abdominal pain, likely secondary to colon ca. 1. Abdominal pain: - Pain improving - CT shows worsening metastatic disease, discussed this with her. - Advance diet to ADA today. - Dilaudid for pain PRN - Zofran prn nausea - Constipation resolved. Establish bowel regimen now. 2. Cellulitis to L distal 3rd phalanx - Rocephin IV - Improving. Continue. 3. Metastatic colon cancer: - Goals of care addressed by my self as well as Dr Baldwin. - Currently continues to want to live as long as possible, and would like to remain FULL CODE. 4. Dm Type 2: - Glucose checks TIDAC with Novolog SSI 5. HTN - Stable, monitor for now. restart meds when nausea improves VTE prophylaxis: heparin GI prophylaxis: Protonix Dispo: 2-3 days pending improvement.
[2019-12-15] MEDS: Ondansetron 4 MG/2 ML SDV IVPUSH PRN (10:04)
[2019-12-15] MEDS: Docusate Sodium 100 MG Cap PO SCH (10:10)
[2019-12-15 11:12] VITALS: BP 151/76; PULSE 87
[2019-12-15] MEDS: Bisacodyl 10 MG Supp RECTAL SCH (11:15)
[2019-12-15] MEDS ORDERED: Insulin Aspart 100 Units/ML 3 ML Pen SUBCUT SCH (11:30)
--- NOTE | 2019-12-15 12:34 | PCM.DCSUM1 ---
Discharge Summary - Hospital Course Brief History: This 59 year old female with pmh of stage IV metastatic colon cancer, mets to liver, peritoneum, and abdominal wall, HTN, CAD, DM TYpe 2, and pacemaker presents to Oncology today for scheduled appointment with worsening abdominal pain, constipation x [address] Cho recommended admission for further care and pain management. She reports she has had no BM in 4 days, normally this is daily. She reports nausea and decrease appetite as well. She is unable to keep meds down at home. She reports feeling generalized malaise and some chills intermittently at home. No chest pain or palpitations. No dysuria. No neurological deficits. Diagnosis: Stroke: No - Discharge Data Discharge Date: 12/15/19 Discharge Disposition: Home, Self-Care 01 Condition: Good - Referral to Home Health Primary Care Physician: PCP Unknown - Discharge Diagnosis/Problem(s) (1) Abdominal pain SNOMED Code(s): 71769394 ICD Code: R10.9 - UNSPECIFIED ABDOMINAL PAIN Status: Acute Current Visit : No (2) Metastatic colon cancer in female SNOMED Code(s): 545966631, 171499935 ICD Code: C18.9 - MALIGNANT NEOPLASM OF COLON, UNSPECIFIED Status: Acute Priority: High Current Visit: No (3) Diabetes type 2, controlled SNOMED Code(s): 76691607, 287616499 ICD Code: E11.9 - TYPE 2 DIABETES MELLITUS WITHOUT COMPLICATIONS Status: Chronic Priority: High Current Visit: No Qualifiers: Diabetes mellitus terminologist insulin use: without longterm use Diabetes mellitus complication status: without complication Qualified Code(s): E11.9 - Type 2 diabetes mellitus without complications (4) GERD (gastroesophageal reflux disease) SNOMED Code(s): 093860229 ICD Code: K21.9 - GASTRO-ESOPHAGEAL REFLUX DISEASE WITHOUT ESOPHAGITIS Status: Chronic Current Visit: No (5) Hypertension SNOMED Code(s): 02628386 ICD Code: I10 - ESSENTIAL (PRIMARY) HYPERTENSION Status: Chronic Current Visit: No Qualifiers: Hypertension type: unspecified Qualified Code(s): I10 - Essential (primary ) hypertension (6) Pacemaker SNOMED Code(s): 239610125 ICD Code: Z95.0 - PRESENCE OF CARDIAC PACEMAKER Status: Chronic Current Visit: No - Patient Instructions Diet: Usual Diet as Tolerated, Drink 8-10+ Glasses/Day Activity: As Tolerated, No Strenuous Activities Driving: Do Not Drive Showering/Bathing: May Shower Notify Provider of: Fever, Increased Pain, Swelling and Redness, Drainage, Nausea and/or Vomiting Other/Special Instructions: Keep well hydrated. If using more pain medications, be sure to monitor stools closely. If stools become loose hold Miralax for a day or two as well a colace. - Discharge Plan *PRESCRIPTION DRUG MONITORING PROGRAM REVIEWED*: Not Applicable *COPY OF PRESCRIPTION DRUG MONITORING REPORT IN PATIENT THELMA: Not Applicable Prescriptions/Med Rec: bisacodyL [Dulcolax] 10 mg RECTAL DAILY PRN #30 supp PRN Reason: Constipation cephALEXin [Keflex] 500 mg PO Q8H #15 cap Docusate Sodium [Colace] 100 mg PO BID #60 cap polyethylene glycoL 3350 [MiraLAX] 17 gm PO Q24H #1 packet Home Medications: Home Meds metFORMIN [Glucophage] 1,000 mg PO BIDMEALS 05/09/14 [History] LORazepam [Ativan] 1 mg PO BEDTIME PRN 12/26/15 [History] Insulin Glarg,Human.Rec.Analog [LantUS Solostar] 34 units SUBCUT BID 08/06/17 [ History] Pantoprazole [ProTONIX] 40 mg PO DAILY 08/06/17 [History] Insulin Aspart [NovoLOG] 14 unit SUBCUT TIDAC 02/04/18 [History] Loperamide [Imodium] 2 mg PO Q4H PRN MDD loose stool 07/20/18 [History] Estrogens, Conjugated [Premarin Vaginal Crm] 0.5 gram VAG ASDIRECTED 03/01/19 [ History] Loratadine [Claritin] 10 mg PO DAILY PRN 03/01/19 [History] atorvaSTATin Calcium [Lipitor] 80 mg PO DAILY 03/01/19 [History] Valsartan 160 mg PO DAILY 30 Days #30 tablet 03/02/19 [Rx] hydroCHLOROthiazide [Hydrochlorothiazide] 25 mg PO DAILY 30 Days #30 tablet [Rx] Diphenhyd/Lidocaine/Nystatin [Magic Mouthwash] 5 ml PO Q4H PRN MDD Oral Ulcers 11/01/19 [History] Magnesium Oxide 400 mg PO BID 11/01/19 [History] Ondansetron [Zofran ODT] 4 mg PO TID PRN 11/01/19 [History] Trifluridine/Tipiracil HCl [Lonsurf 20 mg-8.19 mg Tablet] 1 each PO ASDIRECTED 11/01/19 [History] HYDROmorphone [Dilaudid] 2 mg PO Q6H PRN #10 tablet 11/06/19 [Rx] Docusate Sodium [Colace] 100 mg PO BID #60 cap 12/15/19 [Rx] bisacodyL [Dulcolax] 10 mg RECTAL DAILY PRN #30 supp 12/15/19 [Rx] cephALEXin [Keflex] 500 mg PO Q8H #15 cap 12/15/19 [Rx] polyethylene glycoL 3350 [MiraLAX] 17 gm PO Q24H #1 packet 12/15/19 [Rx] Oxygen Therapy Mode: Room Air Patient Handouts: Bisacodyl suppositories, Abdominal Pain, Adult, [id number] , Cephalexin tablets or capsules, Docusate capsules, Polyethylene Glycol powder - Discharge Summary/Plan Comment DC Time >30 min.: Yes (counseling on bowel regimen and follow up) Discharge Summary/Plan Comment: Admitting Diagnoses: Abdominal pain N/V 3rd distal phalanx cellulitis Discharge Diagnoses: Constipation 3rd distal phalanx cellulitis Other PMH: DM Metastatic colon ca [place] was admitted secondary to increased abdominal pain and N/V. CT of abdomen was obtained to insure to obstruction was noted. CT revealed again, worsening metastatic disease with possible invasion into bladder or indentation of bladder. It also noted constipation, no overt obstruction noted. SHe was treated aggressively with mag citrate, Dulcolax suppository and colace. She was able to have very hard stools, which eventually became soft. She was counseled extensively on bowel regimen, including colace Miralax and Dulcolax. She verbalized understanding. She will be discharged home today, she is tolerating oral diet. Pain is controlled with Dilaudid which she has at home along with Zofran. Follow up with Dr Cho, Oncology. Return to ED or clinic if concerns should arise. Cellulitis to R 3rd phalanx much improved. Will send home on Keflex for 5 more days. - Patient Data Vitals - Most Recent: Last Vital Signs Temp 98.1 F 12/15/19 11:00 Pulse 87 12/15/19 11:00 Resp 16 12/15/19 11:00 BP 151/76 H 12/15/19 11:00 Pulse Ox 98 12/15/19 11:00 Weight - Most Recent: 57.6 kg I&O - Last 24 hours: Intake & Output 12/14/19 12/15/19 12/15/19 22:59 06:59 14:59 Intake Total 1492 2046 Balance 1492 2046 Lab Results - Last 24 hrs: Laboratory Results - last 24 hr 12/14/19 12/14/19 12/14/19 Range/Units 17:06 18:19 21:57 WBC (4.0-11.0) K/uL RBC (4.30-5.90) M/uL Hgb (12.0-16.0) g/dL Hct (36.0-46.0) % MCV (80.0-98.0) fL MCH (27.0-32.0) pg MCHC (31.0-37.0) g/dL RDW Std Deviation (28.0-62.0) fl RDW Coeff of Ej (11.0-15.0) % Plt Count (150-400) K/uL MPV (7.40-12.00) fL Neut % (Auto) (48.0-80.0) % Lymph % (Auto) (16.0-40.0) % White % (Auto) (0.0-15.0) % Eos % (Auto) (0.0-7.0) % Baso % (Auto) (0.0-1.5) % Neut # (Auto) (1.4-5.7) K/uL Lymph # (Auto) (0.6-2.4) K/uL White # (Auto) (0.0-0.8) K/uL Eos # (Auto) (0.0-0.7) K/uL Baso # (Auto) (0.0-0.1) K/uL Nucleated RBC % /100WBC Nucleated RBCs # K/uL Sodium (136-145) mmol/L Potassium (3.5-5.1) mmol/L Chloride (98-107) mmol/L Carbon Dioxide (21.0-32.0) mmol/L BUN (7.0-18.0) mg/dL Creatinine (0.6-1.0) mg/dL Est Cr Clr Drug Dosing mL/min Estimated GFR (MDRD) ml/min Glucose (74-106) mg/dL POC Glucose 167 H 115 H (60-110) mg/dL Calcium (8.5-10.1) mg/dL Total Bilirubin (0.2-1.0) mg/dL AST (15-37) IU/L ALT (14-63) IU/L Alkaline Phosphatase (46-116) U/L Total Protein (6.4-8.2) g/dL Albumin (3.4-5.0) g/dL Globulin (2.6-4.0) g/dL Albumin/Globulin Ratio (0.9-1.6) Urine Color YELLOW Urine Appearance HAZY Urine pH 6.5 (5.0-8.0) Ur Specific [place] 1.025 (1.001-1.035) Urine Protein NEGATIVE (NEGATIVE) mg/dL Urine Glucose (UA) NEGATIVE (NEGATIVE) mg/dL Urine Ketones 40 H (NEGATIVE) mg/dL Urine Occult Blood NEGATIVE (NEGATIVE) Urine Nitrite NEGATIVE (NEGATIVE) Urine Bilirubin SMALL H (NEGATIVE) Urine Ictotest NEGATIVE Urine Urobilinogen 2.0 H (<2.0) EU/dL Ur Leukocyte Esterase NEGATIVE (NEGATIVE) 12/15/19 12/15/19 12/15/19 Range/Units 06:12 06:12 06:26 WBC 7.02 (4.0-11.0) K/uL RBC 3.34 L (4.30-5.90) M/uL Hgb 10.5 L (12.0-16.0) g/dL Hct 31.1 L (36.0-46.0) % MCV 93.1 (80.0-98.0) fL MCH 31.4 (27.0-32.0) pg MCHC 33.8 (31.0-37.0) g/dL RDW Std Deviation 52.1 (28.0-62.0) fl RDW Coeff of Ej 15 (11.0-15.0) % Plt Count 148 L (150-400) K/uL MPV 8.60 (7.40-12.00) fL Neut % (Auto) 69.5 (48.0-80.0) % Lymph % (Auto) 20.8 (16.0-40.0) % White % (Auto) 8.0 (0.0-15.0) % Eos % (Auto) 1.4 (0.0-7.0) % Baso % (Auto) 0.3 (0.0-1.5) % Neut # (Auto) 4.9 (1.4-5.7) K/uL Lymph # (Auto) 1.5 (0.6-2.4) K/uL White # (Auto) 0.6 (0.0-0.8) K/uL Eos # (Auto) 0.1 (0.0-0.7) K/uL Baso # (Auto) 0.0 (0.0-0.1) K/uL Nucleated RBC % 0.0 /100WBC Nucleated RBCs # 0 K/uL Sodium 137 (136-145) mmol/L Potassium 3.6 (3.5-5.1) mmol/L Chloride 102 (98-107) mmol/L Carbon Dioxide 21.6 (21.0-32.0) mmol/L BUN 10 (7.0-18.0) mg/dL Creatinine 0.8 (0.6-1.0) mg/dL Est Cr Clr Drug Dosing 60.62 mL/min Estimated GFR (MDRD) > 60.0 ml/min Glucose 102 (74-106) mg/dL POC Glucose 95 (60-110) mg/dL Calcium 7.7 L (8.5-10.1) mg/dL Total Bilirubin 1.8 H (0.2-1.0) mg/dL AST 37 (15-37) IU/L ALT 20 (14-63) IU/L Alkaline Phosphatase 292 H (46-116) U/L Total Protein 6.1 L (6.4-8.2) g/dL Albumin 2.5 L (3.4-5.0) g/dL Globulin 3.6 (2.6-4.0) g/dL Albumin/Globulin Ratio 0.7 L (0.9-1.6) Urine Color Urine Appearance Urine pH (5.0-8.0) Ur Specific [place] (1.001-1.035) Urine Protein (NEGATIVE) mg/dL Urine Glucose (UA) (NEGATIVE) mg/dL Urine Ketones (NEGATIVE) mg/dL Urine Occult Blood (NEGATIVE) Urine Nitrite (NEGATIVE) Urine Bilirubin (NEGATIVE) Urine Ictotest Urine Urobilinogen (<2.0) EU/dL Ur Leukocyte Esterase (NEGATIVE) Med Orders - Current: Current Medications Bisacodyl (Dulcolax) 10 mg RECTAL DAILY PRN PRN Reason: Constipation Docusate Sodium (Colace) 200 mg PO DAILY [facility] Last Admin: 12/15/19 10:10 Dose: 200 mg Hydromorphone HCl (Dilaudid) 1 mg IVPUSH Q3H PRN PRN Reason: Pain (severe 7-10) Last Admin: 12/15/19 09:57 Dose: 1 mg Ceftriaxone Sodium/Dextrose 1 (gm/ Premix) 50 mls @ 100 mls/hr IV Q24H [facility] Last Admin: 12/14/19 16:31 Dose: 100 mls/hr Pantoprazole Sodium 40 mg/ (Sodium Chloride) 10 mls @ 300 mls/hr IV Q24H [facility] Last Admin: 12/14/19 16:25 Dose: 300 mls/hr Insulin Aspart (Novolog) 0 unit SUBCUT TIDAC [facility]; Protocol Last Admin: 12/15/19 11:24 Dose: Not Given Lorazepam (Ativan) 1 mg IVPUSH Q6H PRN PRN Reason: Anxiety Last Admin: 12/15/19 06:28 Dose: 1 mg Ondansetron HCl (Zofran) 4 mg IVPUSH Q4H PRN PRN Reason: Nausea Last Admin: 12/15/19 10:04 Dose: 4 mg Discontinued Medications Bisacodyl (Dulcolax) 10 mg RECTAL DAILY [facility] Last Admin: 12/15/19 11:15 Dose: Not Given Sodium Chloride (Normal Saline) 1,000 mls @ 125 mls/hr IV Q8H [facility] Last Admin: 12/15/19 06:45 Dose: 125 mls/hr Potassium Phosphate 15 mmole/ (Sodium Chloride) 255 mls @ 63.75 mls/hr IV NOW ONE Stop: 12/13/19 20:59 Last Admin: 12/13/19 18:14 Dose: 63.75 mls/hr Insulin Aspart (Novolog) 0 unit SUBCUT Q6H [facility]; Protocol Last Admin: 12/15/19 04:30 Dose: Not Given Magnesium Citrate (Citrate Of Magnesia) 0 ml PO ONETIME ONE Stop: 12/14/19 10:19 Last Admin: 12/14/19 10:51 Dose: 148 ml
== END 2019-12-15 15:00 | disposition home or self-care (01) | DRG 392 ==
LOC: MW.MS 14:22
PROVIDERS: ADMIT Internal Medicine; ATTEND Internal Medicine
DX: K59.00 Constipation, unspecified (principal); C18.9 Malignant neoplasm of colon, unspecified; C78.7 Secondary malignant neoplasm of liver and intrahepatic bile duct; C78.6 Secondary malignant neoplasm of retroperitoneum and peritoneum; C79.2 Secondary malignant neoplasm of skin; E11.9 Type 2 diabetes mellitus without complications; K21.9 Gastro-esophageal reflux disease without esophagitis; I10 Essential (primary) hypertension; L03.031 Cellulitis of right toe; E78.00 Pure hypercholesterolemia, unspecified; F41.9 Anxiety disorder, unspecified; F32.9 Major depressive disorder, single episode, unspecified; Z90.49 Acquired absence of other specified parts of digestive tract; Z95.0 Presence of cardiac pacemaker; Z88.5 Allergy status to narcotic agent; Z88.6 Allergy status to analgesic agent; Z88.8 Allergy status to other drugs, medicaments and biological substances; Z79.4 Long term (current) use of insulin; Z79.899 Other long term (current) drug therapy
CPT/HCPCS: 36415; 74176; 74176-26; 80053; 81003; 82962; 83735; 84100; 85025; A9270-GY; C9113; J0696; J1170; J1642; J2060; J2405; J7030; J7050

== ENCOUNTER 2020-01-05 13:16 | Observation (INO) | payer OTHER ==
[2020-01-05] MEDS ORDERED: Sodium Chloride 0.9% 10 ML Syringe FLUSH PRN (13:33)
[2020-01-05] MEDS ORDERED: Sodium Chloride 0.9% 2.5 ML Syringe FLUSH PRN (13:33)
[2020-01-05] MEDS ORDERED: Sodium Chloride 0.9% 1,000 ML IV ONE (13:49)
[2020-01-05] MEDS ORDERED: Ondansetron 4 MG/2 ML SDV IVPUSH ONE ×2 (13:49→17:46)
[2020-01-05] MEDS ORDERED: HYDROmorphone 2 MG/ML Syringe IVPUSH ONE ×3 (13:50→18:22)
--- NOTE | 2020-01-05 13:56 | EDM.PDOC ---
ED HPI GENERAL MEDICAL PROBLEM - General Chief Complaint: Abdominal Pain Stated Complaint: ABDOMINAL PAIN Time Seen by Provider: 01/05/20 13:24 Source of Information: Reports: Patient History Limitations: Reports: No Limitations - History of Present Illness INITIAL COMMENTS - FREE TEXT/NARRATIVE: HISTORY AND PHYSICAL: History of present illness: Patient is a 59-year-old female with a history of stage IV metastatic colon cancer, who presents to the ED today with concern of abdominal pain with nausea. Patient states she has not had any episodes of vomiting and that this started last night. Patient states that she started having abdominal pain last night and thought it was related to constipation so took MiraLAX and Colace. Patient states she had a bowel movement earlier today and states this did not relieve her abdominal pain and despite having the bowel movement has had worsening abdominal pain so patient is worried she may have an obstruction. Patient states her abdominal pain today does feel similar to when she had a bowel obstruction in the past. She states she did not have to have surgery and that the bowel obstruction was relieved with fluids and being monitored in the hospital. Patient states she is taking a cancer drug and has so for the past couple weeks but is not doing radiation therapy. Patient states she does have a fentanyl patch that she put on this morning as well as takes 2 mg p.o. of Dilaudid every 4-6 hours for pain and states that she took her last dose of Dilaudid at noon today. Patient denies fever, chills, chest pain, shortness of breath, or cough. Denies headache, neck stiff ness, change in vision, syncope, or near syncope. Denies vomiting, diarrhea, or dysuria. Has not noted any blood in urine or stool. Review of systems: As per history of present illness and below otherwise all systems reviewed and negative. Past medical history: As per history of present illness and as reviewed below otherwise noncontributory. Surgical history: As per history of present illness and as reviewed below otherwise noncontributory. Social history: See social history for further information Family history: As per history of present illness and as reviewed below otherwise noncontributory. Physical exam: General: Patient is alert, oriented, and in no acute distress. Patient laying on exam table, mildly uncomfortable holding abdomen. HEENT: Atraumatic, normocephalic, pupils equal and reactive bilaterally, negative for conjunctival pallor or scleral icterus, mucous membranes moist, TMs normal bilaterally, throat clear, neck supple, nontender, trachea midline. No drooling or trismus noted. No meningeal signs. No hot potato voice noted. Lungs: Clear to auscultation, breath sounds equal bilaterally, chest nontender. Heart: S1S2, regular rate and rhythm without overt murmur Abdomen: Soft, nondistended, generalized moderate tenderness to palpation but negative for peritoneal signs or guarding. Negative for masses or hepatosplenomegaly. Negative for costovertebral tenderness. Pelvis: Stable nontender. Genitourinary: Deferred. Rectal: Deferred. Skin: Intact, warm, dry. No lesions or rashes noted. Extremities: Atraumatic, negative for cords or calf pain. Neurovascular unremarkable. Neuro: Awake, alert, oriented. Cranial nerves II through XII unremarkable. Cerebellum unremarkable. Motor and sensory unremarkable throughout. Exam nonfocal. Notes: After initial reading of the abdominal CT scan I did call and speak to the radiologist Dr. Ortiz and discussed a better way in order to see for potential bowel obstruction. Dr. Becker requests giving oral contrast and repeat study. Dr. Trevino consulted on patient and will admit to observation. Voices understanding and is agreeable to plan of care. Denies any further questions or concerns at this time. Diagnostics: CBC, CMP, UA, Lipase, Abd/Pelvic CT w/o cont (repeated with oral contrast) Therapeutics: NS, Zofran, Dilaudid 1mg IV x 3 Impression: Abdominal pain r/o small bowel obstruction H/O stage IV metastatic colon cancer Plan: Admit to observation to Dr. Trevino Definitive disposition and diagnosis as appropriate pending reevaluation and review of above. Abd Pain Pain Score (Numeric/FACES): 10 - Related Data Allergies Allergy/AdvReac Type Severity Reaction Status Date / Time hydrocodone Allergy Unknown Hives Verified 01/05/20 13:26 ibuprofen Allergy Unknown Hives Verified 01/05/20 13:26 morphine Allergy Unknown Seizure Verified 01/05/20 13:26 nitroglycerin Allergy Unknown Difficulty Verified 01/05/20 13:26 Breathing caffeine Allergy Vomiting Verified 01/05/20 13:26 cyanocobalamin (vitamin B12) Allergy Nausea and Verified 01/05/20 13:26 Vomiting diphenhydramine HCl Allergy Excitabilit Verified 01/05/20 13:26 [From Benadryl] y pyridoxine Allergy Nausea and Verified 01/05/20 13:26 Vomiting vitamin B6 Allergy Other Uncoded 01/05/20 14:08 Home Meds: Home Meds metFORMIN [Glucophage] 1,000 mg PO BIDMEALS 05/09/14 [History] LORazepam [Ativan] 1 mg PO BEDTIME PRN 12/26/15 [History] Insulin Glarg,Human.Rec.Analog [LantUS Solostar] 34 units SUBCUT BID 08/06/17 [ History] Pantoprazole [ProTONIX] 40 mg PO DAILY 08/06/17 [History] Insulin Aspart [NovoLOG] 14 unit SUBCUT TIDAC 02/04/18 [History] Loperamide [Imodium] 2 mg PO Q4H PRN MDD loose stool 07/20/18 [History] Estrogens, Conjugated [Premarin Vaginal Crm] 0.5 gram VAG ASDIRECTED 03/01/19 [ History] Loratadine [Claritin] 10 mg PO DAILY PRN 03/01/19 [History] atorvaSTATin Calcium [Lipitor] 80 mg PO DAILY 03/01/19 [History] Valsartan 160 mg PO DAILY 30 Days #30 tablet 03/02/19 [Rx] hydroCHLOROthiazide [Hydrochlorothiazide] 25 mg PO DAILY 30 Days #30 tablet [Rx] Diphenhyd/Lidocaine/Nystatin [Magic Mouthwash] 5 ml PO Q4H PRN MDD Oral Ulcers 11/01/19 [History] Magnesium Oxide 400 mg PO BID 11/01/19 [History] Ondansetron [Zofran ODT] 4 mg PO TID PRN 11/01/19 [History] Docusate Sodium [Colace] 100 mg PO BID #60 cap 12/15/19 [Rx] bisacodyL [Dulcolax] 10 mg RECTAL DAILY PRN #30 supp 12/15/19 [Rx] polyethylene glycoL 3350 [MiraLAX] 17 gm PO Q24H #1 packet 12/15/19 [Rx] Fluconazole [Diflucan] 150 mg PO ONETIME 01/05/20 [History] HYDROmorphone [Dilaudid] 4 mg PO Q4H PRN 01/05/20 [History] Potassium Chloride 40 mg PO ONETIME 01/05/20 [History] Prochlorperazine [Compazine] 10 mg PO TID 01/05/20 [History] Regorafenib [Stivarga] 160 mg PO BID 01/05/20 [History] amLODIPine [Norvasc] 5 mg PO DAILY 01/05/20 [History] fentaNYL [Fentanyl] 25 mcg PO Q72H 01/05/20 [History] Past Medical History HEENT History: Reports: Impaired Vision Other HEENT History: wears glasses Cardiovascular History: Reports: CAD, High Cholesterol, Hypertension, Pacemaker Other Cardiovascular History: Pacer on Righ Side. Port on Left side. Respiratory History: Reports: Pneumothorax Gastrointestinal History: Reports: GERD Other Gastrointestinal History: hernia, colon CA Genitourinary History: Reports: UTI, Recurrent COMMERCIAL DRAFTER History: Reports: , Other (See Below) Other COMMERCIAL DRAFTER History: x2 Musculoskeletal History: Reports: None Neurological History: Reports: None Psychiatric History: Reports: Anxiety, Depression Endocrine/Metabolic History: Reports: Diabetes, Type II Hematologic History: Reports: None Immunologic History: Reports: None Oncologic (Cancer) History: Reports: Colon, Liver, Metastatic Dermatologic History: Reports: None - Infectious Disease History Infectious Disease History: Reports: Measles Other Infectious Disease History: childhood - Past Surgical History HEENT Surgical History: Reports: Adenoidectomy, Tonsillectomy Cardiovascular Surgical History: Reports: None Respiratory Surgical History: Reports: Other (See Below) Other Respiratory Surgeries/Procedures: chest tube placements GI Surgical History: Reports: Cholecystectomy, Colon, Hernia Repair/Other Other GI Surgeries/Procedures: colectomy x2 Female Surgical History: Reports: Section, Hysterectomy, Salpingo- Oophorectomy Other Female Surgeries/Procedures: X2 Endocrine Surgical History: Reports: None Neurological Surgical History: Reports: None Musculoskeletal Surgical History: Reports: None, Other (See Below) Other Musculoskeletal Surgeries/Procedures:: rigth knee pain Oncologic Surgical History: Reports: Other (See Below) Other Oncologic Surgeries/Procedures: Patient currently on oral Chemo Dermatological Surgical History: Reports: None Social & Family History - Family History Family Medical History: Noncontributory GI: Reports: None - Tobacco Use Smoking Status *Q: Never Smoker - Caffeine Use Caffeine Use: Reports: None Caffeine Use Comment: allergic to caffeine - Recreational Drug Use Recreational Drug Use: No - Living Situation & Occupation Living situation: Reports: ED ROS GENERAL - Review of Systems Review Of Systems: Comprehensive ROS is negative, except as noted in HPI. ED EXAM, GENERAL - Physical Exam Exam: See Below (See dictation) Course - Vital Signs Last Recorded V/S: Last Vital Signs Temp 96.7 F L 01/05/20 13:26 Pulse 89 01/05/20 17:50 Resp 18 01/05/20 17:50 BP 132/80 01/05/20 17:50 Pulse Ox 96 01/05/20 17:50 - Orders/Labs/Meds Orders: Active Orders 24 hr Category Date Time Status Admission Status [Patient Status] [ADT] Stat ADT 01/05/20 18:20 Ordered Sodium Chloride 0.9% [Saline Flush] Med 01/05/20 13:33 Active 10 ml FLUSH ASDIRECTED PRN Sodium Chloride 0.9% [Saline Flush] Med 01/05/20 13:33 Active 2.5 ml FLUSH ASDIRECTED PRN Saline Lock Insert [OM.PC] Stat Oth 01/05/20 13:33 Ordered Medication Orders Sodium Chloride (Saline Flush) 10 ml FLUSH ASDIRECTED PRN PRN Reason: Keep Vein Open Last Admin: 01/05/20 14:38 Dose: 10 ml Sodium Chloride (Saline Flush) 2.5 ml FLUSH ASDIRECTED PRN PRN Reason: Keep Vein Open Last Admin: 01/05/20 14:38 Dose: 2.5 ml Labs: Laboratory Tests 01/05/20 01/05/20 01/05/20 Range/Units 14:28 14:28 17:05 WBC 7.97 (4.0-11.0) K/uL RBC 4.31 (4.30-5.90) M/uL Hgb 13.1 (12.0-16.0) g/dL Hct 39.0 (36.0-46.0) % MCV 90.5 (80.0-98.0) fL MCH 30.4 (27.0-32.0) pg MCHC 33.6 (31.0-37.0) g/dL RDW Std Deviation 50.7 (28.0-62.0) fl RDW Coeff of Ej 15 (11.0-15.0) % Plt Count 134 L (150-400) K/uL MPV 9.70 (7.40-12.00) fL Neut % (Auto) 75.3 (48.0-80.0) % Lymph % (Auto) 17.6 (16.0-40.0) % [place] % (Auto) 6.0 (0.0-15.0) % Eos % (Auto) 0.8 (0.0-7.0) % Baso % (Auto) 0.3 (0.0-1.5) % Neut # (Auto) 6.0 H (1.4-5.7) K/uL Lymph # (Auto) 1.4 (0.6-2.4) K/uL [place] # (Auto) 0.5 (0.0-0.8) K/uL Eos # (Auto) 0.1 (0.0-0.7) K/uL Baso # (Auto) 0.0 (0.0-0.1) K/uL Nucleated RBC % 0.0 /100WBC Nucleated RBCs # 0 K/uL Sodium 137 (136-145) mmol/L Potassium 3.4 L (3.5-5.1) mmol/L Chloride 101 (98-107) mmol/L Carbon Dioxide 23.8 (21.0-32.0) mmol/L BUN 36 H (7.0-18.0) mg/dL Creatinine 0.9 (0.6-1.0) mg/dL Est Cr Clr Drug Dosing 53.89 mL/min Estimated GFR (MDRD) > 60.0 ml/min Glucose 174 H (74-106) mg/dL Calcium 8.4 L (8.5-10.1) mg/dL Total Bilirubin 3.2 H (0.2-1.0) mg/dL AST 59 H (15-37) IU/L ALT 45 (14-63) IU/L Alkaline Phosphatase 405 H (46-116) U/L Total Protein 7.7 (6.4-8.2) g/dL Albumin 3.9 (3.4-5.0) g/dL Globulin 3.8 (2.6-4.0) g/dL Albumin/Globulin Ratio 1.0 (0.9-1.6) Lipase 74 (73-393) U/L Urine Color YELLOW Urine Appearance CLEAR Urine pH 6.0 (5.0-8.0) Ur Specific [place] 1.025 (1.001-1.035) Urine Protein NEGATIVE (NEGATIVE) mg/dL Urine Glucose (UA) NEGATIVE (NEGATIVE) mg/dL Urine Ketones NEGATIVE (NEGATIVE) mg/dL Urine Occult Blood NEGATIVE (NEGATIVE) Urine Nitrite NEGATIVE (NEGATIVE) Urine Bilirubin NEGATIVE (NEGATIVE) Urine Urobilinogen 0.2 (<2.0) EU/dL Ur Leukocyte Esterase NEGATIVE (NEGATIVE) Meds: Medications Generic Name Dose Route Start Last Admin Trade Name Freq PRN Reason Stop Dose Admin Sodium Chloride 10 ml 01/05/20 13:33 01/05/20 14:38 Saline Flush FLUSH 10 ml ASDIRECTED PRN Administration Keep Vein Open Sodium Chloride 2.5 ml 01/05/20 13:33 01/05/20 14:38 Saline Flush FLUSH 2.5 ml ASDIRECTED PRN Administration Keep Vein Open Discontinued Medications Generic Name Dose Route Start Last Admin Trade Name Freq PRN Reason Stop Dose Admin Hydromorphone HCl 1 mg 01/05/20 13:50 01/05/20 14:38 Dilaudid IVPUSH 01/05/20 13:51 1 mg ONETIME ONE Administration Hydromorphone HCl 1 mg 01/05/20 16:10 01/05/20 16:25 Dilaudid IVPUSH 01/05/20 16:11 1 mg ONETIME ONE Administration Sodium Chloride 1,000 mls @ 999 mls/hr 01/05/20 13:49 01/05/20 14:37 Normal Saline IV 01/05/20 14:49 999 mls/hr BOLUS ONE Administration Ondansetron HCl 4 mg 01/05/20 13:49 01/05/20 14:38 Zofran IVPUSH 01/05/20 13:50 4 mg ONETIME ONE Administration Ondansetron HCl 4 mg 01/05/20 17:46 01/05/20 18:07 Zofran IVPUSH 01/05/20 17:47 4 mg ONETIME ONE Administration Departure - Departure Time of Disposition: 18:24 Disposition: Refer to Observation Clinical Impression: History of malignant neoplasm metastatic to liver Abdominal pain Qualifiers: Abdominal location: generalized Qualified Code(s): R10.84 - Generalized abdominal pain - Discharge Information Referrals: Raman Cho MD [Primary Care Provider] - Forms: ED Department Discharge Sepsis Event Note - Evaluation Sepsis Screening Result: Possible Sepsis Risk - Focused Exam Vital Signs: Vital Signs Temp Pulse Resp BP Pulse Ox 01/05/20 17:50 89 18 132/80 96 01/05/20 16:15 84 18 127/84 98 01/05/20 15:30 84 18 124/69 99 01/05/20 14:25 84 18 133/72 98 01/05/20 13:26 96.7 F L 92 20 135/81 98 Date Exam was Performed: 01/05/20 Time Exam was Performed: 18:22 - My Orders Last 24 Hours: My Active Orders 01/05/20 13:33 Sodium Chloride 0.9% [Saline Flush] 10 ml FLUSH ASDIRECTED PRN Sodium Chloride 0.9% [Saline Flush] 2.5 ml FLUSH ASDIRECTED PRN Saline Lock Insert [OM.PC] Stat 01/05/20 18:20 Admission Status [Patient Status] [ADT] Stat - Assessment/Plan Last 24 Hours: My Active Orders 01/05/20 13:33 Sodium Chloride 0.9% [Saline Flush] 10 ml FLUSH ASDIRECTED PRN Sodium Chloride 0.9% [Saline Flush] 2.5 ml FLUSH ASDIRECTED PRN Saline Lock Insert [OM.PC] Stat 01/05/20 18:20 Admission Status [Patient Status] [ADT] Stat
[2020-01-05 15:08] LABS: BLOOD UREA NITROGEN,BUN 36 mg/dL (7.0-18.0); CARBON DIOXIDE,CO2 23.8 mmol/L (21.0-32.0); CHLORIDE,CL 101 mmol/L (98-107); GLUCOSE RANDOM 174 mg/dL (74-106); LIPASE 74 U/L (73-393); POTASSIUM,K 3.4 mmol/L (3.5-5.1); SODIUM,NA 137 mmol/L (136-145)
--- NOTE | 2020-01-05 15:44 | CT ---
CT abdomen and pelvis Technique: Multiple axial sections were obtained from above the dome of the diaphragm inferiorly to the pubic symphysis. Intravenous and oral contrast not utilized. Comparison: Prior CT abdomen and pelvis exam of 12/13/19. Findings: Multiple liver metastasis are seen which are believed to be stable from previous exam. Numerous calcifications are seen within the liver and spleen which appears stable. Visualized lung bases show nothing acute. Adrenal glands show no nodule. Kidneys show no abnormal calcifications or hydronephrosis. Pancreas shows no discrete abnormality. Surgical clips seen from prior cholecystectomy. Aorta shows diffuse atherosclerotic calcification which continues into the iliac vessels without aneurysm. Abdominal wall masses are noted which are felt to be stable. Pelvic mass is noted which also is felt to be stable. No retroperitoneal adenopathy is seen. Scattered loops of small bowel dilatation is seen which contain fluid. There appears to be a metastasis within a loop of small bowel within the right abdomen as well as several other vague mesenteric metastasis. These are not well seen without contrast. Impression: 1. Mildly dilated loops of fluid-filled small bowel scattered within the abdomen. Mesenteric metastasis are seen. One metastasis appears to involve small bowel within the right lower abdomen. Mesenteric metastasis are not well seen on current and previous studies due to lack of contrast. Uncertain as to the etiology of the mildly dilated small bowel which could represent adhesions as well as obstruction from metastasis. 2. Stable liver metastasis as well as abdominal wall metastasis and stable pelvic mass. 3. Other findings are felt to be stable as described above. Diagnostic code #9 Study was dictated in MDT
--- NOTE | 2020-01-05 18:12 | CT ---
CT abdomen and pelvis Technique: Multiple axial sections were obtained from above the dome of the diaphragm inferiorly through the pubic symphysis. Oral contrast has been given. No intravenous contrast was utilized. Comparison: Previous study performed earlier on the same day. Findings: Intra-abdominal metastasis are seen which appears stable and described on previous study. There is a small amount of ascites seen around the liver. Small bowel opacification is somewhat diluted due to fluid within the small bowel. Small bowel dilatation is noted. Transition point is still difficult to visualize but is most likely within the anterior lower pelvis in area of abdominal wall metastasis. Impression: 1. Continued small bowel dilatation. Dilution of the small bowel contrast due to fluid within the bowel is noted. Transition point is still difficult to see but most likely is an area of the anterior lower pelvis in an area of abdominal wall metastasis. Recommend follow-up radiographic study in the a.m. to allow for reevaluation of contrast transit. 2. Not mentioned on previous report is a small amount of fluid around the liver. 3. No change is otherwise seen from prior study performed on same day. Diagnostic code #9 Study was dictated in MDT
[2020-01-05] MEDS: HYDROmorphone 1 MG/ML Syringe IVPUSH PRN (21:52)
[2020-01-05] MEDS: Ondansetron 4 MG/2 ML SDV IVPUSH PRN (21:54)
[2020-01-05] MEDS: Sodium Chloride 0.9% 1,000 ML IV SCH (21:59)
--- NOTE | 2020-01-06 | PCM.HP.2 ---
H&P History of Present Illness - General Date of Service: 01/05/20 Admit Problem/Dx: Admission Diagnosis/Problem Admission Diagnosis/Problem Abdominal pain - History of Present Illness Initial Comments - Free Text/Narative: 59 yo female with past medical history of colon cancer with mesenteric metastasis and multiple admissions for abdominal pain and partial small bowel obstructions. She presented with one day history of abdominal pain. she denies any nausea, vomiting or fevers. Last bowel movement was one hour ago which was liquid. She had a CT scan done in the ED which showed possible small bowel obstruction. Patient is currently using a fentanyl patch and prn Dilaudid for her chronic abdominal pain. Abd Pain Pain Score (Numeric/FACES): 5 - Related Data Allergies/Adverse Reactions: Allergies Allergy/AdvReac Type Severity Reaction Status Date / Time hydrocodone Allergy Unknown Hives Verified 01/06/20 08:33 ibuprofen Allergy Unknown Hives Verified 01/06/20 08:33 morphine Allergy Unknown Seizure Verified 01/06/20 08:33 nitroglycerin Allergy Unknown Difficulty Verified 01/06/20 08:33 Breathing caffeine Allergy Vomiting Verified 01/06/20 08:33 cyanocobalamin (vitamin B12) Allergy Nausea and Verified 01/06/20 08:33 Vomiting diphenhydramine HCl Allergy Excitabilit Verified 01/06/20 08:33 [From Benadryl] y pyridoxine Allergy Nausea and Verified 01/06/20 08:33 Vomiting vitamin B6 Allergy Other Uncoded 01/05/20 14:08 Home Medications: Home Meds metFORMIN [Glucophage] 1,000 mg PO BIDMEALS 05/09/14 [History] LORazepam [Ativan] 1 mg PO BEDTIME PRN 12/26/15 [History] Insulin Glarg,Human.Rec.Analog [LantUS Solostar] 34 units SUBCUT BID 08/06/17 [ History] Pantoprazole [ProTONIX] 40 mg PO .BEFORESUPPER 08/06/17 [History] Insulin Aspart [NovoLOG] 14 unit SUBCUT TIDAC 02/04/18 [History] Loperamide [Imodium] 2 mg PO Q4H PRN MDD loose stool 07/20/18 [History] Estrogens, Conjugated [Premarin Vaginal Crm] 0.5 gram VAG ASDIRECTED 03/01/19 [ History] Loratadine [Claritin] 10 mg PO DAILY PRN 03/01/19 [History] atorvaSTATin Calcium [Lipitor] 80 mg PO DAILY 03/01/19 [History] Valsartan 160 mg PO DAILY 30 Days #30 tablet 03/02/19 [Rx] hydroCHLOROthiazide [Hydrochlorothiazide] 25 mg PO DAILY 30 Days #30 tablet [Rx] Diphenhyd/Lidocaine/Nystatin [Magic Mouthwash] 5 ml PO Q4H PRN MDD Oral Ulcers 11/01/19 [History] Magnesium Oxide 400 mg PO BID 11/01/19 [History] Ondansetron [Zofran ODT] 4 mg PO TID PRN 11/01/19 [History] Docusate Sodium [Colace] 100 mg PO BID #60 cap 12/15/19 [Rx] bisacodyL [Dulcolax] 10 mg RECTAL DAILY PRN #30 supp 12/15/19 [Rx] polyethylene glycoL 3350 [MiraLAX] 17 gm PO Q24H #1 packet 12/15/19 [Rx] HYDROmorphone [Dilaudid] 2 mg PO Q6H PRN 01/05/20 [History] Prochlorperazine [Compazine] 10 mg PO TID 01/05/20 [History] Regorafenib [Stivarga] 160 mg PO BID 01/05/20 [History] amLODIPine [Norvasc] 5 mg PO DAILY 01/05/20 [History] fentaNYL [Fentanyl] 25 mcg PO Q72H 01/05/20 [History] Past Medical History HEENT History: Reports: Impaired Vision Other HEENT History: wears glasses Cardiovascular History: Reports: CAD, High Cholesterol, Hypertension, Pacemaker Other Cardiovascular History: Pacer on Righ Side. Port on Left side. Respiratory History: Reports: Pneumothorax Gastrointestinal History: Reports: GERD Other Gastrointestinal History: hernia, colon CA Genitourinary History: Reports: UTI, Recurrent [employer] History: Reports: , Other (See Below) Other OB/BYN History: x2 Musculoskeletal History: Reports: None Neurological History: Reports: None Psychiatric History: Reports: Anxiety, Depression Endocrine/Metabolic History: Reports: Diabetes, Type II Hematologic History: Reports: None Immunologic History: Reports: None Oncologic (Cancer) History: Reports: Colon, Liver, Metastatic Dermatologic History: Reports: None - Infectious Disease History Infectious Disease History: Reports: Measles Other Infectious Disease History: childhood - Past Surgical History HEENT Surgical History: Reports: Adenoidectomy, Tonsillectomy Cardiovascular Surgical History: Reports: None Respiratory Surgical History: Reports: Other (See Below) Other Respiratory Surgeries/Procedures: chest tube placements GI Surgical History: Reports: Cholecystectomy, Colon, Hernia Repair/Other Other GI Surgeries/Procedures: colectomy x2 Female Surgical History: Reports: Section, Hysterectomy, Salpingo- Oophorectomy Other Female Surgeries/Procedures: X2 Endocrine Surgical History: Reports: None Neurological Surgical History: Reports: None Musculoskeletal Surgical History: Reports: None, Other (See Below) Other Musculoskeletal Surgeries/Procedures:: rigth knee pain Oncologic Surgical History: Reports: Other (See Below) Other Oncologic Surgeries/Procedures: Patient currently on oral Chemo Dermatological Surgical History: Reports: None Social & Family History - Family History Family Medical History: Noncontributory GI: Reports: None - Tobacco Use Smoking Status *Q: Never Smoker - Caffeine Use Caffeine Use: Reports: None Caffeine Use Comment: allergic to caffeine - Recreational Drug Use Recreational Drug Use: No - Living Situation & Occupation Living situation: Reports: H&P Review of Systems - Review of Systems: Review Of Systems: Comprehensive ROS is negative, except as noted in HPI. Exam - Exam Exam: See Below - Vital Signs Vital Signs: Last Vital Signs Temp 36.2 C 01/05/20 20:38 Pulse 88 01/05/20 20:38 Resp 18 01/05/20 20:38 BP 152/86 H 01/05/20 20:38 Pulse Ox 100 01/05/20 20:38 Weight: 60.781 kg - Exam General: Alert, Oriented HEENT: Mucosa Moist & [place]y Neck: Supple Lungs: Clear to Auscultation, Normal Respiratory Effort Cardiovascular: Regular Rate, Regular Rhythm GI/Abdominal Exam: Normal Bowel Sounds, Soft, Non-Tender, No Organomegaly, No Distention Extremities: Non-Tender, No Pedal Edema Skin: Warm, Dry, Intact - Patient Data Lab Results Last 24 hrs: Laboratory Results - last 24 hr 01/05/20 01/05/20 01/05/20 Range/Units 14:28 14:28 17:05 WBC 7.97 (4.0-11.0) K/uL RBC 4.31 (4.30-5.90) M/uL Hgb 13.1 (12.0-16.0) g/dL Hct 39.0 (36.0-46.0) % MCV 90.5 (80.0-98.0) fL MCH 30.4 (27.0-32.0) pg MCHC 33.6 (31.0-37.0) g/dL RDW Std Deviation 50.7 (28.0-62.0) fl RDW Coeff of Ej 15 (11.0-15.0) % Plt Count 134 L (150-400) K/uL MPV 9.70 (7.40-12.00) fL Neut % (Auto) 75.3 (48.0-80.0) % Lymph % (Auto) 17.6 (16.0-40.0) % [place] % (Auto) 6.0 (0.0-15.0) % Eos % (Auto) 0.8 (0.0-7.0) % Baso % (Auto) 0.3 (0.0-1.5) % Neut # (Auto) 6.0 H (1.4-5.7) K/uL Lymph # (Auto) 1.4 (0.6-2.4) K/uL [place] # (Auto) 0.5 (0.0-0.8) K/uL Eos # (Auto) 0.1 (0.0-0.7) K/uL Baso # (Auto) 0.0 (0.0-0.1) K/uL Nucleated RBC % 0.0 /100WBC Nucleated RBCs # 0 K/uL Sodium 137 (136-145) mmol/L Potassium 3.4 L (3.5-5.1) mmol/L Chloride 101 (98-107) mmol/L Carbon Dioxide 23.8 (21.0-32.0) mmol/L BUN 36 H (7.0-18.0) mg/dL Creatinine 0.9 (0.6-1.0) mg/dL Est Cr Clr Drug Dosing 53.89 mL/min Estimated GFR (MDRD) > 60.0 ml/min Glucose 174 H (74-106) mg/dL Calcium 8.4 L (8.5-10.1) mg/dL Total Bilirubin 3.2 H (0.2-1.0) mg/dL AST 59 H (15-37) IU/L ALT 45 (14-63) IU/L Alkaline Phosphatase 405 H (46-116) U/L Total Protein 7.7 (6.4-8.2) g/dL Albumin 3.9 (3.4-5.0) g/dL Globulin 3.8 (2.6-4.0) g/dL Albumin/Globulin Ratio 1.0 (0.9-1.6) Lipase 74 (73-393) U/L Urine Color YELLOW Urine Appearance CLEAR Urine pH 6.0 (5.0-8.0) Ur Specific [place] 1.025 (1.001-1.035) Urine Protein NEGATIVE (NEGATIVE) mg/dL Urine Glucose (UA) NEGATIVE (NEGATIVE) mg/dL Urine Ketones NEGATIVE (NEGATIVE) mg/dL Urine Occult Blood NEGATIVE (NEGATIVE) Urine Nitrite NEGATIVE (NEGATIVE) Urine Bilirubin NEGATIVE (NEGATIVE) Urine Urobilinogen 0.2 (<2.0) EU/dL Ur Leukocyte Esterase NEGATIVE (NEGATIVE) Result Diagrams: 01/06/20 06:10 01/06/20 06:10 Sepsis Event Note - Evaluation Sepsis Screening Result: No Definite Risk - Focused Exam Vital Signs: Vital Signs Temp Pulse Resp BP BP Pulse Ox 01/05/20 20:38 36.2 C 88 18 152/86 H 100 01/05/20 19:53 89 20 128/80 98 01/05/20 18:38 84 18 134/74 98 01/05/20 17:50 89 18 132/80 96 01/05/20 16:15 84 18 127/84 98 01/05/20 15:30 84 18 124/69 99 01/05/20 14:25 84 18 133/72 98 01/05/20 13:26 35.9 C L 92 20 135/81 98 Date Exam was Performed: 01/06/20 Time Exam was Performed: 19:56 Problem List Initiated/Reviewed/Updated: Yes Orders Last 24hrs: Active Orders 24 hr Category Date Time Status Admission Status [Patient Status] [ADT] Stat ADT 01/05/20 18:20 Active Accu Check [Blood Glucose Check, Bedside] [RC] Care 01/05/20 21:14 Active QIDACANDBED Antiembolic Devices [RC] PER UNIT ROUTINE Care 01/05/20 23:55 Ordered Oxygen Therapy [RC] PRN Care 01/05/20 23:55 Ordered Up ad Moira [RC] ASDIRECTED Care 01/05/20 23:55 Ordered VTE/DVT Education [RC] PER UNIT ROUTINE Care 01/05/20 23:55 Ordered Vital Signs [RC] Q4H Care 01/05/20 23:55 Ordered NPO [Nothing Per Oral Diet] [DIET] Diet 01/06/20 Breakfast Active CBC WITH AUTO DIFF [HEME] AM Lab 01/06/20 05:11 Ordered COMPREHENSIVE METABOLIC PN,CMP [CHEM] AM Lab 01/06/20 05:11 Ordered HYDROmorphone [Dilaudid] Med 01/05/20 21:21 Active 1 mg IVPUSH Q3H PRN Ondansetron [Zofran] Med 01/05/20 21:19 Active 4 mg IVPUSH Q4H PRN Sodium Chloride 0.9% [Normal Saline] 1,000 ml Med 01/05/20 21:30 Active IV ASDIRECTED Sodium Chloride 0.9% [Saline Flush] Med 01/05/20 13:33 Active 10 ml FLUSH ASDIRECTED PRN Sodium Chloride 0.9% [Saline Flush] Med 01/05/20 13:33 Active 2.5 ml FLUSH ASDIRECTED PRN Saline Lock Insert [OM.PC] Stat Oth 01/05/20 13:33 Ordered Sequential Compression Device [OM.PC] Per Unit Routine Oth 01/05/20 23:55 Ordered Resuscitation Status Routine Resus Stat 01/05/20 23:55 Ordered Medication Orders Hydromorphone HCl (Dilaudid) 1 mg IVPUSH Q3H PRN PRN Reason: Pain Last Admin: 01/05/20 21:52 Dose: 1 mg Sodium Chloride (Normal Saline) 1,000 mls @ 125 mls/hr IV ASDIRECTED MARIA T Last Admin: 01/05/20 21:59 Dose: 125 mls/hr Ondansetron HCl (Zofran) 4 mg IVPUSH Q4H PRN PRN Reason: Nausea Last Admin: 01/05/20 21:54 Dose: 4 mg Sodium Chloride (Saline Flush) 10 ml FLUSH ASDIRECTED PRN PRN Reason: Keep Vein Open Last Admin: 01/05/20 14:38 Dose: 10 ml Sodium Chloride (Saline Flush) 2.5 ml FLUSH ASDIRECTED PRN PRN Reason: Keep Vein Open Last Admin: 01/05/20 14:38 Dose: 2.5 ml Assessment/Plan Comment:: 59 yo female admitted with partial small bowel obstruction. We will treat with bowel rest and IV fluids.
[2020-01-06] MEDS ORDERED: LORazepam 2 MG/ML SDV IVPUSH ONE (00:21)
[2020-01-06] MEDS: HYDROmorphone 1 MG/ML Syringe IVPUSH PRN ×8 (01:17→23:45)
[2020-01-06] MEDS: Sodium Chloride 0.9% 1,000 ML IV SCH ×3 (06:30→22:02)
[2020-01-06 07:13] LABS: BLOOD UREA NITROGEN,BUN 25 mg/dL (7.0-18.0); CHLORIDE,CL 105 mmol/L (98-107); GLUCOSE RANDOM 145 mg/dL (74-106); POTASSIUM,K 3.5 mmol/L (3.5-5.1); SODIUM,NA 139 mmol/L (136-145)
--- NOTE | 2020-01-06 08:57 | PCM.PN ---
- General Info Date of Service: 01/06/20 Subjective Update: Reports abdominal pain slightly improved since yesterday, had 3 watery stools overnight, small vomit yesterday evening, no nausea currently. - Patient Data Vitals - Most Recent: Last Vital Signs Temp 97.3 F 01/06/20 04:00 Pulse 89 01/06/20 04:00 Resp 12 01/06/20 04:00 BP 122/72 01/06/20 04:00 Pulse Ox 97 01/06/20 04:00 Weight - Most Recent: 134 lb I&O - Last 24 Hours: Intake & Output 01/05/20 01/06/20 01/06/20 22:59 06:59 14:59 Intake Total 850 Balance 850 Lab Results Last 24 Hours: Laboratory Results - last 24 hr 01/05/20 01/05/20 01/05/20 Range/Units 14:28 14:28 17:05 WBC 7.97 (4.0-11.0) K/uL RBC 4.31 (4.30-5.90) M/uL Hgb 13.1 (12.0-16.0) g/dL Hct 39.0 (36.0-46.0) % MCV 90.5 (80.0-98.0) fL MCH 30.4 (27.0-32.0) pg MCHC 33.6 (31.0-37.0) g/dL RDW Std Deviation 50.7 (28.0-62.0) fl RDW Coeff of Ej 15 (11.0-15.0) % Plt Count 134 L (150-400) K/uL MPV 9.70 (7.40-12.00) fL Neut % (Auto) 75.3 (48.0-80.0) % Lymph % (Auto) 17.6 (16.0-40.0) % [place] % (Auto) 6.0 (0.0-15.0) % Eos % (Auto) 0.8 (0.0-7.0) % Baso % (Auto) 0.3 (0.0-1.5) % Neut # (Auto) 6.0 H (1.4-5.7) K/uL Lymph # (Auto) 1.4 (0.6-2.4) K/uL [place] # (Auto) 0.5 (0.0-0.8) K/uL Eos # (Auto) 0.1 (0.0-0.7) K/uL Baso # (Auto) 0.0 (0.0-0.1) K/uL Nucleated RBC % 0.0 /100WBC Nucleated RBCs # 0 K/uL Sodium 137 (136-145) mmol/L Potassium 3.4 L (3.5-5.1) mmol/L Chloride 101 (98-107) mmol/L Carbon Dioxide 23.8 (21.0-32.0) mmol/L BUN 36 H (7.0-18.0) mg/dL Creatinine 0.9 (0.6-1.0) mg/dL Est Cr Clr Drug Dosing 53.89 mL/min Estimated GFR (MDRD) > 60.0 ml/min Glucose 174 H (74-106) mg/dL POC Glucose (60-110) mg/dL Calcium 8.4 L (8.5-10.1) mg/dL Total Bilirubin 3.2 H (0.2-1.0) mg/dL AST 59 H (15-37) IU/L ALT 45 (14-63) IU/L Alkaline Phosphatase 405 H (46-116) U/L Total Protein 7.7 (6.4-8.2) g/dL Albumin 3.9 (3.4-5.0) g/dL Globulin 3.8 (2.6-4.0) g/dL Albumin/Globulin Ratio 1.0 (0.9-1.6) Lipase 74 (73-393) U/L Urine Color YELLOW Urine Appearance CLEAR Urine pH 6.0 (5.0-8.0) Ur Specific [place] 1.025 (1.001-1.035) Urine Protein NEGATIVE (NEGATIVE) mg/dL Urine Glucose (UA) NEGATIVE (NEGATIVE) mg/dL Urine Ketones NEGATIVE (NEGATIVE) mg/dL Urine Occult Blood NEGATIVE (NEGATIVE) Urine Nitrite NEGATIVE (NEGATIVE) Urine Bilirubin NEGATIVE (NEGATIVE) Urine Urobilinogen 0.2 (<2.0) EU/dL Ur Leukocyte Esterase NEGATIVE (NEGATIVE) 01/06/20 01/06/20 01/06/20 Range/Units 06:10 06:10 06:43 WBC 7.05 (4.0-11.0) K/uL RBC 3.94 L (4.30-5.90) M/uL Hgb 11.8 L (12.0-16.0) g/dL Hct 35.7 L (36.0-46.0) % MCV 90.6 (80.0-98.0) fL MCH 29.9 (27.0-32.0) pg MCHC 33.1 (31.0-37.0) g/dL RDW Std Deviation 51.0 (28.0-62.0) fl RDW Coeff of Ej 15 (11.0-15.0) % Plt Count 133 L (150-400) K/uL MPV 9.90 (7.40-12.00) fL Neut % (Auto) 59.7 (48.0-80.0) % Lymph % (Auto) 32.3 (16.0-40.0) % [place] % (Auto) 6.7 (0.0-15.0) % Eos % (Auto) 1.0 (0.0-7.0) % Baso % (Auto) 0.3 (0.0-1.5) % Neut # (Auto) 4.2 (1.4-5.7) K/uL Lymph # (Auto) 2.3 (0.6-2.4) K/uL [place] # (Auto) 0.5 (0.0-0.8) K/uL Eos # (Auto) 0.1 (0.0-0.7) K/uL Baso # (Auto) 0.0 (0.0-0.1) K/uL Nucleated RBC % 0.0 /100WBC Nucleated RBCs # 0 K/uL Sodium 139 (136-145) mmol/L Potassium 3.5 (3.5-5.1) mmol/L Chloride 105 (98-107) mmol/L Carbon Dioxide 27.0 (21.0-32.0) mmol/L BUN 25 H (7.0-18.0) mg/dL Creatinine 0.9 (0.6-1.0) mg/dL Est Cr Clr Drug Dosing 53.89 mL/min Estimated GFR (MDRD) > 60.0 ml/min Glucose 145 H (74-106) mg/dL POC Glucose 138 H (60-110) mg/dL Calcium 7.6 L (8.5-10.1) mg/dL Total Bilirubin 2.8 H (0.2-1.0) mg/dL AST 49 H (15-37) IU/L ALT 37 (14-63) IU/L Alkaline Phosphatase 327 H (46-116) U/L Total Protein 6.4 (6.4-8.2) g/dL Albumin 3.1 L (3.4-5.0) g/dL Globulin 3.3 (2.6-4.0) g/dL Albumin/Globulin Ratio 0.9 (0.9-1.6) Lipase (73-393) U/L Urine Color Urine Appearance Urine pH (5.0-8.0) Ur Specific [place] (1.001-1.035) Urine Protein (NEGATIVE) mg/dL Urine Glucose (UA) (NEGATIVE) mg/dL Urine Ketones (NEGATIVE) mg/dL Urine Occult Blood (NEGATIVE) Urine Nitrite (NEGATIVE) Urine Bilirubin (NEGATIVE) Urine Urobilinogen (<2.0) EU/dL Ur Leukocyte Esterase (NEGATIVE) Med Orders - Current: Current Medications Hydromorphone HCl (Dilaudid) 1 mg IVPUSH Q3H PRN PRN Reason: Pain Last Admin: 01/06/20 07:46 Dose: 1 mg Sodium Chloride (Normal Saline) 1,000 mls @ 125 mls/hr IV ASDIRECTED MARIA T Last Admin: 01/06/20 06:30 Dose: 125 mls/hr Ondansetron HCl (Zofran) 4 mg IVPUSH Q4H PRN PRN Reason: Nausea Last Admin: 01/05/20 21:54 Dose: 4 mg Sodium Chloride (Saline Flush) 10 ml FLUSH ASDIRECTED PRN PRN Reason: Keep Vein Open Last Admin: 01/05/20 14:38 Dose: 10 ml Sodium Chloride (Saline Flush) 2.5 ml FLUSH ASDIRECTED PRN PRN Reason: Keep Vein Open Last Admin: 01/05/20 14:38 Dose: 2.5 ml Discontinued Medications Hydromorphone HCl (Dilaudid) 1 mg IVPUSH ONETIME ONE Stop: 01/05/20 13:51 Last Admin: 01/05/20 14:38 Dose: 1 mg Hydromorphone HCl (Dilaudid) 1 mg IVPUSH ONETIME ONE Stop: 01/05/20 16:11 Last Admin: 01/05/20 16:25 Dose: 1 mg Hydromorphone HCl (Dilaudid) 1 mg IVPUSH ONETIME ONE Stop: 01/05/20 18:23 Last Admin: 01/05/20 18:36 Dose: 1 mg Sodium Chloride (Normal Saline) 1,000 mls @ 999 mls/hr IV BOLUS ONE Stop: 01/05/20 14:49 Last Admin: 01/05/20 14:37 Dose: 999 mls/hr Lorazepam (Ativan) 0.5 mg IVPUSH ONETIME ONE Stop: 01/06/20 00:22 Last Admin: 01/06/20 01:17 Dose: 0.5 mg Ondansetron HCl (Zofran) 4 mg IVPUSH ONETIME ONE Stop: 01/05/20 13:50 Last Admin: 01/05/20 14:38 Dose: 4 mg Ondansetron HCl (Zofran) 4 mg IVPUSH ONETIME ONE Stop: 01/05/20 17:47 Last Admin: 01/05/20 18:07 Dose: 4 mg - Exam General: Alert, Oriented, Cooperative, No Acute Distress Lungs: Clear to Auscultation, Normal Respiratory Effort Cardiovascular: Regular Rate, Regular Rhythm GI/Abdominal Exam: Normal Bowel Sounds, Soft, No Distention, Other (mild generalized ttp) Extremities: Normal Inspection, No Pedal Edema Sepsis Event Note - Evaluation Sepsis Screening Result: No Definite Risk - Focused Exam Vital Signs: Vital Signs Temp Pulse Resp BP Pulse Ox Pulse Ox 01/06/20 04:00 97.3 F 89 12 122/72 97 01/06/20 00:00 98.6 F 83 12 112/71 98 01/05/20 23:55 96 Date Exam was Performed: 01/06/20 Time Exam was Performed: 11:03 - Problem List Review Problem List Initiated/Reviewed/Updated: Yes - Plan Plan:: 59 yo female admitted with partial small bowel obstruction. We will treat with bowel rest and IV fluids. Assessment and Plan: 1. Partial small bowel obstruction: - Will advance to [facility] [place], continue IV NS 125 cc/hr, pain control with IV Dilaudid 1 mg q3 prn. - CT abd/pelvis showed small bowel dilatation, transition point difficult to see but most likely an area of anterior lower pelvis in an area of abdominal wall metastasis. As patient reports improvement in abdominal pain this morning, no nausea, increased appetite and having bowel movement, will not order repeat CT abd/pelvis at this time. 2. Metastatic colon cancer. 3. Diabetes mellitus type 2: - Accuchecks QID and SSI. 4. VTE prophylaxis: SCD's.
[2020-01-06] MEDS: Insulin Aspart 100 Units/ML 3 ML Pen SUBCUT SCH ×2 (14:00→17:47)
[2020-01-06] MEDS: Ondansetron 4 MG/2 ML SDV IVPUSH PRN ×2 (14:18→20:34)
[2020-01-07] MEDS: HYDROmorphone 1 MG/ML Syringe IVPUSH PRN ×7 (03:08→23:09)
[2020-01-07] MEDS: Ondansetron 4 MG/2 ML SDV IVPUSH PRN ×4 (03:09→19:49)
[2020-01-07] MEDS: Sodium Chloride 0.9% 1,000 ML IV SCH ×3 (06:02→22:06)
[2020-01-07 06:57] LABS: BLOOD UREA NITROGEN,BUN 16 mg/dL (7.0-18.0); CHLORIDE,CL 108 mmol/L (98-107); GLUCOSE RANDOM 128 mg/dL (74-106); POTASSIUM,K 3.1 mmol/L (3.5-5.1); SODIUM,NA 140 mmol/L (136-145)
[2020-01-07] MEDS: Insulin Aspart 100 Units/ML 3 ML Pen SUBCUT SCH ×3 (07:34→16:52)
[2020-01-07] MEDS ORDERED: Potassium Chloride 10% 20 MEQ/15 ML Soln 30 ML UD Cup PO ONE (09:20)
[2020-01-07] MEDS: Pantoprazole 40 MG in Sodium Chloride 0.9% 10 ML IV SCH (10:13)
[2020-01-07] MEDS: Vancomycin 125 MG Cap PO SCH ×3 (11:06→23:10)
--- NOTE | 2020-01-07 12:52 | PCM.PN ---
- General Info Date of Service: 01/07/20 Admission Dx/Problem (Free Text): Admission Diagnosis/Problem Admission Diagnosis/Problem Abdominal pain Subjective Update: Reports watery stools overnight, getting worse, pain is better, no nausea. Discussed Code status, patient wants DNR/DNI. - Review of Systems General: Reports: Weakness, Fatigue. Denies: Fever Pulmonary: Denies: Shortness of Breath, Pleuritic Chest Pain Cardiovascular: Denies: Chest Pain, Palpitations, Dyspnea on Exertion Gastrointestinal: Reports: Abdominal Pain, Diarrhea. Denies: Decreased Appetite , Difficulty Swallowing, Melena, Nausea Genitourinary: Denies: Frequency, Burning, Pain Musculoskeletal: Denies: Shoulder Pain, Arm Pain, Hand Pain Skin: Denies: Jaundice, Mottled, Diaphoresis - Patient Data Vitals - Most Recent: Last Vital Signs Temp 36.6 C 01/07/20 12:00 Pulse 76 01/07/20 12:00 Resp 18 01/07/20 12:00 BP 142/79 H 01/07/20 12:00 Pulse Ox 100 01/07/20 12:00 Weight - Most Recent: 60.781 kg I&O - Last 24 Hours: Intake & Output 01/06/20 01/07/20 01/07/20 22:59 06:59 14:59 Intake Total 60 2171 Output Total 150 600 Balance -90 1571 Lab Results Last 24 Hours: Laboratory Results - last 24 hr 01/06/20 01/07/20 01/07/20 Range/Units 17:29 03:18 06:00 WBC 5.37 (4.0-11.0) K/uL RBC 3.57 L (4.30-5.90) M/uL Hgb 10.8 L (12.0-16.0) g/dL Hct 32.5 L (36.0-46.0) % MCV 91.0 (80.0-98.0) fL MCH 30.3 (27.0-32.0) pg MCHC 33.2 (31.0-37.0) g/dL RDW Std Deviation 51.6 (28.0-62.0) fl RDW Coeff of Ej 15 (11.0-15.0) % Plt Count 109 L (150-400) K/uL MPV 9.30 (7.40-12.00) fL Neut % (Auto) 62.4 (48.0-80.0) % Lymph % (Auto) 29.1 (16.0-40.0) % [place] % (Auto) 6.3 (0.0-15.0) % Eos % (Auto) 2.0 (0.0-7.0) % Baso % (Auto) 0.2 (0.0-1.5) % Neut # (Auto) 3.4 (1.4-5.7) K/uL Lymph # (Auto) 1.6 (0.6-2.4) K/uL [place] # (Auto) 0.3 (0.0-0.8) K/uL Eos # (Auto) 0.1 (0.0-0.7) K/uL Baso # (Auto) 0.0 (0.0-0.1) K/uL Nucleated RBC % 0.0 /100WBC Nucleated RBCs # 0 K/uL Sodium (136-145) mmol/L Potassium (3.5-5.1) mmol/L Chloride (98-107) mmol/L Carbon Dioxide (21.0-32.0) mmol/L BUN (7.0-18.0) mg/dL Creatinine (0.6-1.0) mg/dL Est Cr Clr Drug Dosing mL/min Estimated GFR (MDRD) ml/min Glucose (74-106) mg/dL POC Glucose 107 79 (60-110) mg/dL Calcium (8.5-10.1) mg/dL Total Bilirubin (0.2-1.0) mg/dL AST (15-37) IU/L ALT (14-63) IU/L Alkaline Phosphatase (46-116) U/L Total Protein (6.4-8.2) g/dL Albumin (3.4-5.0) g/dL Globulin (2.6-4.0) g/dL Albumin/Globulin Ratio (0.9-1.6) 01/07/20 01/07/20 01/07/20 Range/Units 06:00 06:46 11:09 WBC (4.0-11.0) K/uL RBC (4.30-5.90) M/uL Hgb (12.0-16.0) g/dL Hct (36.0-46.0) % MCV (80.0-98.0) fL MCH (27.0-32.0) pg MCHC (31.0-37.0) g/dL RDW Std Deviation (28.0-62.0) fl RDW Coeff of Ej (11.0-15.0) % Plt Count (150-400) K/uL MPV (7.40-12.00) fL Neut % (Auto) (48.0-80.0) % Lymph % (Auto) (16.0-40.0) % [place] % (Auto) (0.0-15.0) % Eos % (Auto) (0.0-7.0) % Baso % (Auto) (0.0-1.5) % Neut # (Auto) (1.4-5.7) K/uL Lymph # (Auto) (0.6-2.4) K/uL [place] # (Auto) (0.0-0.8) K/uL Eos # (Auto) (0.0-0.7) K/uL Baso # (Auto) (0.0-0.1) K/uL Nucleated RBC % /100WBC Nucleated RBCs # K/uL Sodium 140 (136-145) mmol/L Potassium 3.1 L (3.5-5.1) mmol/L Chloride 108 H (98-107) mmol/L Carbon Dioxide 22.0 (21.0-32.0) mmol/L BUN 16 (7.0-18.0) mg/dL Creatinine 0.7 (0.6-1.0) mg/dL Est Cr Clr Drug Dosing 69.28 mL/min Estimated GFR (MDRD) > 60.0 ml/min Glucose 128 H (74-106) mg/dL POC Glucose 117 H 117 H (60-110) mg/dL Calcium 6.9 L (8.5-10.1) mg/dL Total Bilirubin 2.4 H (0.2-1.0) mg/dL AST 39 H (15-37) IU/L ALT 31 (14-63) IU/L Alkaline Phosphatase 250 H (46-116) U/L Total Protein 5.3 L (6.4-8.2) g/dL Albumin 2.6 L (3.4-5.0) g/dL Globulin 2.7 (2.6-4.0) g/dL Albumin/Globulin Ratio 1.0 (0.9-1.6) Guru Results Last 24 Hours: Microbiology 01/07/20 08:08 C. difficile Antigen & Toxins A,B - Final Stool / Feces Med Orders - Current: Current Medications Hydromorphone HCl (Dilaudid) 1 mg IVPUSH Q3H PRN PRN Reason: Pain Last Admin: 01/07/20 10:13 Dose: 1 mg Sodium Chloride (Normal Saline) 1,000 mls @ 125 mls/hr IV [facility]IRECTED [facility] Last Admin: 01/07/20 06:02 Dose: 125 mls/hr Pantoprazole Sodium 40 mg/ (Sodium Chloride) 10 mls @ 300 mls/hr IV Q24H [facility] Last Admin: 01/07/20 10:13 Dose: 300 mls/hr Insulin Aspart (Novolog) 0 unit SUBCUT TIDAC [facility]; Protocol Last Admin: 01/07/20 12:38 Dose: Not Given Ondansetron HCl (Zofran) 4 mg IVPUSH Q4H PRN PRN Reason: Nausea Last Admin: 01/07/20 07:53 Dose: 4 mg Sodium Chloride (Saline Flush) 10 ml FLUSH ASDIRECTED PRN PRN Reason: Keep Vein Open Last Admin: 01/05/20 14:38 Dose: 10 ml Sodium Chloride (Saline Flush) 2.5 ml FLUSH ASDIRECTED PRN PRN Reason: Keep Vein Open Last Admin: 01/05/20 14:38 Dose: 2.5 ml Vancomycin HCl (Vancomycin) 125 mg PO Q6HR [facility] Last Admin: 01/07/20 11:06 Dose: 125 mg Discontinued Medications Hydromorphone HCl (Dilaudid) 1 mg IVPUSH ONETIME ONE Stop: 01/05/20 13:51 Last Admin: 01/05/20 14:38 Dose: 1 mg Hydromorphone HCl (Dilaudid) 1 mg IVPUSH ONETIME ONE Stop: 01/05/20 16:11 Last Admin: 01/05/20 16:25 Dose: 1 mg Hydromorphone HCl (Dilaudid) 1 mg IVPUSH ONETIME ONE Stop: 01/05/20 18:23 Last Admin: 01/05/20 18:36 Dose: 1 mg Sodium Chloride (Normal Saline) 1,000 mls @ 999 mls/hr IV BOLUS ONE Stop: 01/05/20 14:49 Last Admin: 01/05/20 14:37 Dose: 999 mls/hr Lorazepam (Ativan) 0.5 mg IVPUSH ONETIME ONE Stop: 01/06/20 00:22 Last Admin: 01/06/20 01:17 Dose: 0.5 mg Ondansetron HCl (Zofran) 4 mg IVPUSH ONETIME ONE Stop: 01/05/20 13:50 Last Admin: 01/05/20 14:38 Dose: 4 mg Ondansetron HCl (Zofran) 4 mg IVPUSH ONETIME ONE Stop: 01/05/20 17:47 Last Admin: 01/05/20 18:07 Dose: 4 mg Potassium Chloride (Potassium Chloride) 40 meq PO ONETIME ONE Stop: 01/07/20 09:21 Last Admin: 01/07/20 10:12 Dose: 40 meq - Exam Quality Assessment: Supplemental Oxygen General: Alert, Oriented Lungs: Clear to Auscultation, Normal Respiratory Effort Cardiovascular: Regular Rate, Regular Rhythm GI/Abdominal Exam: Normal Bowel Sounds, Distended, Tender Extremities: Normal Inspection, Normal Range of Motion, Non-Tender Sepsis Event Note - Evaluation Sepsis Screening Result: No Definite Risk - Focused Exam Vital Signs: Vital Signs Temp Pulse Resp BP Pulse Ox 01/07/20 12:00 36.6 C 76 18 142/79 H 100 01/07/20 08:00 36.1 C 88 18 148/79 H 100 01/07/20 03:50 36.7 C 78 18 132/83 99 Date Exam was Performed: 01/07/20 Time Exam was Performed: 13:01 - Problem List & Annotations (1) Abdominal pain SNOMED Code(s): 12165993 Code(s): R10.9 - UNSPECIFIED ABDOMINAL PAIN Status: Acute Current Visit: Yes Qualifiers: Abdominal location: generalized Qualified Code(s): R10.84 - Generalized abdominal pain (2) History of malignant neoplasm metastatic to liver SNOMED Code(s): 8188894203410251 Code(s): Z85.05 - PERSONAL HISTORY OF MALIGNANT NEOPLASM OF LIVER Status: Chronic Priority: High Current Visit: Yes (3) C. difficile colitis SNOMED Code(s): 763068326 Code(s): A04.72 - ENTEROCOLITIS D/T CLOSTRIDIUM DIFFICILE, NOT SPCF RECUR Status: Acute Current Visit: No (4) Small bowel obstruction SNOMED Code(s): 165322726 Code(s): K56.609 - UNSP INTESTNL OBST, UNSP TO PARTIAL VERSUS COMPLETE OBST Status: Acute Current Visit: Yes - Problem List Review Problem List Initiated/Reviewed/Updated: Yes - My Orders Last 24 Hours: My Active Orders 01/07/20 08:08 C DIFICILE TOXIN BY PCR CONF [MREF] Routine 01/07/20 09:30 Pantoprazole [ProTONIX IV] 40 mg Sodium Chloride 0.9% [Normal Saline] 10 ml IV Q24H 01/07/20 12:00 Vancomycin 125 mg PO Q6HR - Plan Plan:: 59 yo female admitted with partial small bowel obstruction. Developed Diarrhea, positive for Cdiff antigen cont IVF fluids Cont pain control with Dilaudid Will start Vancomycin PO for Cdiff. DNR/DNI after extensive discussion about code status
[2020-01-07] MEDS ORDERED: LORazepam 0.5 MG Tab PO PRN (16:58)
[2020-01-08] MEDS: HYDROmorphone 1 MG/ML Syringe IVPUSH PRN ×3 (02:21→09:09)
[2020-01-08] MEDS: Ondansetron 4 MG/2 ML SDV IVPUSH PRN ×3 (02:23→12:41)
[2020-01-08] MEDS: Sodium Chloride 0.9% 1,000 ML IV SCH (05:48)
[2020-01-08] MEDS: Vancomycin 125 MG Cap PO SCH ×2 (05:52→12:35)
[2020-01-08] MEDS: Insulin Aspart 100 Units/ML 3 ML Pen SUBCUT SCH ×2 (07:14→11:56)
[2020-01-08] MEDS: Pantoprazole 40 MG in Sodium Chloride 0.9% 10 ML IV SCH (09:01)
[2020-01-08] MEDS ORDERED: HYDROmorphone 2 MG Tab PO PRN (09:32)
[2020-01-08 10:34] LABS: BLOOD UREA NITROGEN,BUN 6 mg/dL (7.0-18.0); CARBON DIOXIDE,CO2 20.3 mmol/L (21.0-32.0); CHLORIDE,CL 104 mmol/L (98-107); GLUCOSE RANDOM 132 mg/dL (74-106); POTASSIUM,K 3.5 mmol/L (3.5-5.1); SODIUM,NA 136 mmol/L (136-145)
[2020-01-08] MEDS ORDERED: Magnesium Sulfate/Water 2 GM in Premix Bag 1 BAG IV ONE (12:46)
[2020-01-08 13:21] VITALS: BP 158/73
[2020-01-08 13:22] VITALS: PULSE 80
--- NOTE | 2020-01-08 14:28 | PCM.DCSUM1 ---
Discharge Summary - Hospital Course Brief History: 59 yo female with past medical history of colon cancer with mesenteric metastasis and multiple admissions for abdominal pain and partial small bowel obstructions. She presented with one day history of abdominal pain. she denies any nausea, vomiting or fevers. Last bowel movement was one hour ago which was liquid. She had a CT scan done in the ED which showed possible small bowel obstruction. Patient is currently using a fentanyl patch and prn Dilaudid for her chronic abdominal pain. - Discharge Data Discharge Date: 01/08/20 Discharge Disposition: Home, Self-Care 01 Condition: Stable - Referral to Home Health Primary Care Physician: Raman Cho MD - Patient Summary/Data Hospital Course: Admitting Diagnoses SBO Metastatic colon cancer Discharge Diagnoses: SBO- resolved Metastatic colon cancer Cathleen Perdomo was admitted secondary to abdominal pain and SBO. She was treated with IV pain medications and IVFs. Diarrhea noted, cdiff antigen positive, toxin negative. Vancomycin 125 mcg PO QID started. diet was slowly increased to soft. She was transitioned t PO pain medications. She is able to be discharged today. Only 1 stool overnight and is more soft. Pain is tolerable. She did decide on DNR/DNI resuscitation status, but is not comfortable discussing end of life care yet. She is thinking about it and knows her prognosis is poor. She is to follow up with Dr Cho in Oncology. Return to the ED or clinic if concerns should arise sooner. - Patient Instructions Diet: Usual Diet as Tolerated Activity: As Tolerated, No Strenuous Activities Driving: Do Not Drive Showering/Bathing: May Shower Notify Provider of: Fever, Increased Pain, Swelling and Redness, Drainage, Nausea and/or Vomiting - Discharge Plan *PRESCRIPTION DRUG MONITORING PROGRAM REVIEWED*: Not Applicable *COPY OF PRESCRIPTION DRUG MONITORING REPORT IN PATIENT THELMA: Not Applicable Prescriptions/Med Rec: Vancomycin 125 mg PO Q6HR #32 cap Home Medications: Home Meds metFORMIN [Glucophage] 1,000 mg PO BIDMEALS 05/09/14 [History] LORazepam [Ativan] 1 mg PO BEDTIME PRN 12/26/15 [History] Insulin Glarg,Human.Rec.Analog [LantUS Solostar] 34 units SUBCUT BID 08/06/17 [ History] Pantoprazole [ProTONIX] 40 mg PO .BEFORESUPPER 08/06/17 [History] Insulin Aspart [NovoLOG] 14 unit SUBCUT TIDAC 02/04/18 [History] Loperamide [Imodium] 2 mg PO Q4H PRN MDD loose stool 07/20/18 [History] Estrogens, Conjugated [Premarin Vaginal Crm] 0.5 gram VAG ASDIRECTED 03/01/19 [ History] Loratadine [Claritin] 10 mg PO DAILY PRN 03/01/19 [History] atorvaSTATin Calcium [Lipitor] 80 mg PO DAILY 03/01/19 [History] Valsartan 160 mg PO DAILY 30 Days #30 tablet 03/02/19 [Rx] hydroCHLOROthiazide [Hydrochlorothiazide] 25 mg PO DAILY 30 Days #30 tablet [Rx] Diphenhyd/Lidocaine/Nystatin [Magic Mouthwash] 5 ml PO Q4H PRN MDD Oral Ulcers 11/01/19 [History] Magnesium Oxide 400 mg PO BID 11/01/19 [History] Ondansetron [Zofran ODT] 4 mg PO TID PRN 11/01/19 [History] Docusate Sodium [Colace] 100 mg PO BID #60 cap 12/15/19 [Rx] bisacodyL [Dulcolax] 10 mg RECTAL DAILY PRN #30 supp 12/15/19 [Rx] polyethylene glycoL 3350 [MiraLAX] 17 gm PO Q24H #1 packet 12/15/19 [Rx] HYDROmorphone [Dilaudid] 2 mg PO Q6H PRN 01/05/20 [History] Prochlorperazine [Compazine] 10 mg PO TID 01/05/20 [History] Regorafenib [Stivarga] 160 mg PO BID 01/05/20 [History] amLODIPine [Norvasc] 5 mg PO DAILY 01/05/20 [History] fentaNYL [Fentanyl] 25 mcg PO Q72H 01/05/20 [History] Vancomycin 125 mg PO Q6HR #32 cap 01/08/20 [Rx] Oxygen Therapy Mode: Room Air Patient Handouts: Bowel Obstruction, [id number], Vancomycin oral solution Referrals: Raman Cho MD [Primary Care Provider] - 01/17/20 4:20 am - Discharge Summary/Plan Comment DC Time >30 min.: No - Patient Data Vitals - Most Recent: Last Vital Signs Temp 97.0 F 01/08/20 12:47 Pulse 80 01/08/20 13:20 Resp 14 01/08/20 12:47 BP 158/73 H 01/08/20 13:20 Pulse Ox 99 01/08/20 12:47 Weight - Most Recent: 60.781 kg I&O - Last 24 hours: Intake & Output 01/07/20 01/08/20 01/08/20 22:59 06:59 14:59 Intake Total 1781 1863 Output Total 800 800 Balance 981 1063 Lab Results - Last 24 hrs: Laboratory Results - last 24 hr 01/07/20 01/07/20 01/08/20 Range/Units 16:47 23:07 06:42 WBC (4.0-11.0) K/uL RBC (4.30-5.90) M/uL Hgb (12.0-16.0) g/dL Hct (36.0-46.0) % MCV (80.0-98.0) fL MCH (27.0-32.0) pg MCHC (31.0-37.0) g/dL RDW Std Deviation (28.0-62.0) fl RDW Coeff of Ej (11.0-15.0) % Plt Count (150-400) K/uL MPV (7.40-12.00) fL Neut % (Auto) (48.0-80.0) % Lymph % (Auto) (16.0-40.0) % [place] % (Auto) (0.0-15.0) % Eos % (Auto) (0.0-7.0) % Baso % (Auto) (0.0-1.5) % Neut # (Auto) (1.4-5.7) K/uL Lymph # (Auto) (0.6-2.4) K/uL [place] # (Auto) (0.0-0.8) K/uL Eos # (Auto) (0.0-0.7) K/uL Baso # (Auto) (0.0-0.1) K/uL Nucleated RBC % /100WBC Nucleated RBCs # K/uL Sodium (136-145) mmol/L Potassium (3.5-5.1) mmol/L Chloride (98-107) mmol/L Carbon Dioxide (21.0-32.0) mmol/L BUN (7.0-18.0) mg/dL Creatinine (0.6-1.0) mg/dL Est Cr Clr Drug Dosing mL/min Estimated GFR (MDRD) ml/min Glucose (74-106) mg/dL POC Glucose 96 99 125 H (60-110) mg/dL Calcium (8.5-10.1) mg/dL Phosphorus (2.6-4.7) mg/dL Magnesium (1.8-2.4) mg/dL 01/08/20 01/08/20 Range/Units 10:05 10:05 WBC 5.08 (4.0-11.0) K/uL RBC 3.71 L (4.30-5.90) M/uL Hgb 11.3 L (12.0-16.0) g/dL Hct 33.6 L (36.0-46.0) % MCV 90.6 (80.0-98.0) fL MCH 30.5 (27.0-32.0) pg MCHC 33.6 (31.0-37.0) g/dL RDW Std Deviation 50.6 (28.0-62.0) fl RDW Coeff of Ej 15 (11.0-15.0) % Plt Count 111 L (150-400) K/uL MPV 9.10 (7.40-12.00) fL Neut % (Auto) 64.3 (48.0-80.0) % Lymph % (Auto) 23.8 (16.0-40.0) % [place] % (Auto) 9.3 (0.0-15.0) % Eos % (Auto) 2.4 (0.0-7.0) % Baso % (Auto) 0.2 (0.0-1.5) % Neut # (Auto) 3.3 (1.4-5.7) K/uL Lymph # (Auto) 1.2 (0.6-2.4) K/uL [place] # (Auto) 0.5 (0.0-0.8) K/uL Eos # (Auto) 0.1 (0.0-0.7) K/uL Baso # (Auto) 0.0 (0.0-0.1) K/uL Nucleated RBC % 0.0 /100WBC Nucleated RBCs # 0 K/uL Sodium 136 (136-145) mmol/L Potassium 3.5 (3.5-5.1) mmol/L Chloride 104 (98-107) mmol/L Carbon Dioxide 20.3 L (21.0-32.0) mmol/L BUN 6 L (7.0-18.0) mg/dL Creatinine 0.7 (0.6-1.0) mg/dL Est Cr Clr Drug Dosing 69.28 mL/min Estimated GFR (MDRD) > 60.0 ml/min Glucose 132 H (74-106) mg/dL POC Glucose (60-110) mg/dL Calcium 7.1 L (8.5-10.1) mg/dL Phosphorus 1.4 L (2.6-4.7) mg/dL Magnesium 1.7 L (1.8-2.4) mg/dL Med Orders - Current: Current Medications Hydromorphone HCl (Dilaudid) 2 mg PO Q6H PRN PRN Reason: Pain Last Admin: 01/08/20 12:36 Dose: 2 mg Sodium Chloride (Normal Saline) 1,000 mls @ 125 mls/hr IV ASDIRECTED [facility] Last Admin: 01/08/20 05:48 Dose: 125 mls/hr Pantoprazole Sodium 40 mg/ (Sodium Chloride) 10 mls @ 300 mls/hr IV Q24H [facility] Last Admin: 01/08/20 09:01 Dose: 300 mls/hr Insulin Aspart (Novolog) 0 unit SUBCUT TIDAC [facility]; Protocol Last Admin: 01/08/20 11:56 Dose: Not Given Ondansetron HCl (Zofran) 4 mg IVPUSH Q4H PRN PRN Reason: Nausea Last Admin: 01/08/20 12:41 Dose: 4 mg Sodium Chloride (Saline Flush) 10 ml FLUSH ASDIRECTED PRN PRN Reason: Keep Vein Open Last Admin: 01/05/20 14:38 Dose: 10 ml Sodium Chloride (Saline Flush) 2.5 ml FLUSH ASDIRECTED PRN PRN Reason: Keep Vein Open Last Admin: 01/05/20 14:38 Dose: 2.5 ml Vancomycin HCl (Vancomycin) 125 mg PO Q6HR [facility] Last Admin: 01/08/20 12:35 Dose: 125 mg Discontinued Medications Hydromorphone HCl (Dilaudid) 1 mg IVPUSH ONETIME ONE Stop: 01/05/20 13:51 Last Admin: 01/05/20 14:38 Dose: 1 mg Hydromorphone HCl (Dilaudid) 1 mg IVPUSH ONETIME ONE Stop: 01/05/20 16:11 Last Admin: 01/05/20 16:25 Dose: 1 mg Hydromorphone HCl (Dilaudid) 1 mg IVPUSH ONETIME ONE Stop: 01/05/20 18:23 Last Admin: 01/05/20 18:36 Dose: 1 mg Hydromorphone HCl (Dilaudid) 1 mg IVPUSH Q3H PRN PRN Reason: Pain Last Admin: 01/08/20 09:09 Dose: 1 mg Sodium Chloride (Normal Saline) 1,000 mls @ 999 mls/hr IV BOLUS ONE Stop: 01/05/20 14:49 Last Admin: 01/05/20 14:37 Dose: 999 mls/hr Magnesium Sulfate 2 gm/ Premix 50 mls @ 50 mls/hr IV ONETIME ONE Stop: 01/08/20 13:45 Last Admin: 01/08/20 13:11 Dose: 50 mls/hr Lorazepam (Ativan) 0.5 mg IVPUSH ONETIME ONE Stop: 01/06/20 00:22 Last Admin: 01/06/20 01:17 Dose: 0.5 mg Lorazepam (Ativan) 0.5 mg PO Q6H PRN PRN Reason: Anxiety Last Admin: 01/08/20 04:34 Dose: 0.5 mg Ondansetron HCl (Zofran) 4 mg IVPUSH ONETIME ONE Stop: 01/05/20 13:50 Last Admin: 01/05/20 14:38 Dose: 4 mg Ondansetron HCl (Zofran) 4 mg IVPUSH ONETIME ONE Stop: 01/05/20 17:47 Last Admin: 01/05/20 18:07 Dose: 4 mg Potassium Chloride (Potassium Chloride) 40 meq PO ONETIME ONE Stop: 01/07/20 09:21 Last Admin: 01/07/20 10:12 Dose: 40 meq - Exam General: Reports: Alert, Oriented, Cooperative Lungs: Reports: Clear to Auscultation, Normal Respiratory Effort Cardiovascular: Reports: Regular Rate, Regular Rhythm GI/Abdominal Exam: Normal Bowel Sounds, Soft, Non-Tender, Mass Psy/Mental Status: Reports: Alert, Normal Affect, Normal Mood
== END 2020-01-08 15:20 | disposition home or self-care (01) ==
LOC: MW.ED 13:16 → MW.MS 18:34
PROVIDERS: ADMIT Internal Medicine; ATTEND Internal Medicine
DX: K56.600 Partial intestinal obstruction, unspecified as to cause (principal); C18.9 Malignant neoplasm of colon, unspecified; C78.6 Secondary malignant neoplasm of retroperitoneum and peritoneum; C78.7 Secondary malignant neoplasm of liver and intrahepatic bile duct; A04.72 Enterocolitis due to Clostridium difficile, not specified as recurrent; E78.00 Pure hypercholesterolemia, unspecified; I10 Essential (primary) hypertension; E11.9 Type 2 diabetes mellitus without complications; K21.9 Gastro-esophageal reflux disease without esophagitis; Z79.4 Long term (current) use of insulin; Z79.899 Other long term (current) drug therapy; Z88.6 Allergy status to analgesic agent; Z88.8 Allergy status to other drugs, medicaments and biological substances; Z90.49 Acquired absence of other specified parts of digestive tract
CPT/HCPCS: 36415; 74176; 80048; 80053; 81003; 82962; 83690; 83735; 84100; 85025; 87324; 87493; 96361; 96374; 96375; 96376; 99285; A9270; C9113; G0378; J1170; J1642; J2060; J2405; J3475; J7030; J7050; 99284; J1815-GY

== ENCOUNTER 2020-01-12 13:51 | Inpatient (IN) | payer OTHER ==
[2020-01-12] MEDS ORDERED: Ondansetron 4 MG/2 ML SDV IVPUSH ONE ×2 (14:31→14:32)
[2020-01-12] MEDS ORDERED: Sodium Chloride 0.9% 1,000 ML IV ONE ×2 (14:31→16:56)
[2020-01-12] MEDS ORDERED: Sodium Chloride 0.9% 500 ML IV ONE (14:32)
[2020-01-12 14:53] LABS: BLOOD UREA NITROGEN,BUN 12 mg/dL (7.0-18.0); CARBON DIOXIDE,CO2 24.9 mmol/L (21.0-32.0); CHLORIDE,CL 101 mmol/L (98-107); GLUCOSE RANDOM 175 mg/dL (74-106); LIPASE 38 U/L (73-393); POTASSIUM,K 3.8 mmol/L (3.5-5.1); SODIUM,NA 138 mmol/L (136-145)
[2020-01-12] MEDS ORDERED: Metoclopramide 10 MG/2 ML SDV IVPUSH ONE (15:30)
[2020-01-12] MEDS ORDERED: Iopamidol 755 Mg/ML 100 ML Bottle IVPUSH STA (16:05)
[2020-01-12] MEDS ORDERED: HYDROmorphone 1 MG/ML Syringe IVPUSH PRN (16:23)
--- NOTE | 2020-01-12 16:31 | CR ---
INDICATION: Pain radiating to the arm. History of malignancy. TECHNIQUE: Two views. FINDINGS: Amorphous roughly 1 cm ill-defined mineralized density along the anterolateral cortical margin of the proximal humeral diaphysis. No lytic or blastic bone lesion. No fracture. Correlate with area of clinical concern. Contrast MRI of the upper extremity could be performed for better characterization if indicated. Dictated by Volodymyr Kent MD @ Jan 12 2020 4:29PM Signed by Dr. Volodymyr Kent @ Jan 12 2020 4:29PM
--- NOTE | 2020-01-12 16:43 | CT ---
INDICATION: Nausea, vomiting, recurrent small bowel obstruction, metastatic cancer TECHNIQUE: CT abdomen and pelvis acquired with 100 cc Isovue 370 IV contrast. COMPARISON: January 05, 2020 FINDINGS: Lower chest: Pacer wires in the right atrium and right ventricle. Liver: Multiple hypodense lesions throughout the liver unchanged. Calcified granulomata. Spleen: Calcified granulomata. Pancreas: Unremarkable. Gallbladder and bile ducts: S/p cholecystectomy. Adrenal glands: Unremarkable. Kidneys: Unremarkable. GI tract: Multiple loops of dilated small bowel reach a maximum diameter of 4.8 cm. Transition point is likely in the anterior abdomen near the level of the umbilicus where there are matted loops of small bowel and multiple peritoneal implants, best seen on image 67 series 504. No free air or pneumatosis. Anastomotic suture line in the mid descending colon. Vascular structures: Unremarkable. Lymph nodes: Unremarkable. Miscellaneous: Small amount of free fluid. Multiple peritoneal implants consistent with peritoneal carcinomatosis. There is also abnormal soft tissue density in the anterior abdominal wall near the umbilicus consistent with metastatic disease. Pelvic Organs: Status post hysterectomy. No change in appearance of multiloculated cystic lesion in the pelvis measuring approximately 8 x 5 x 10.0 cm. This directly abuts and causes mass effect on the superior portion of the urinary bladder. Bones: Unremarkable for age. IMPRESSION: Small-bowel obstruction. Transition point is likely in the anterior abdomen near the level of the umbilicus where there are matted loops of small bowel and multiple peritoneal implants. Small amount of free fluid. No extraluminal air. Multiple hypodense lesions throughout the liver consistent with metastatic disease. Diffuse peritoneal carcinomatosis. Stable appearance of multiloculated mass in the pelvis. Status post cholecystectomy and hysterectomy. Please note that all CT scans at this facility use dose modulation, iterative reconstruction, and/or weight-based dosing when appropriate to reduce radiation dose to as low as reasonably achievable. Dictated by Ailin Steven MD @ Jan 12 2020 4:32PM Signed by Dr. Ailin Steven @ Jan 12 2020 4:42PM
--- NOTE | 2020-01-12 16:52 | CT ---
INDICATION: Chest pain, metastatic disease TECHNIQUE: CT chest pulmonary PE protocol acquired with 100 cc Isovue 370 IV contrast. COMPARISON: November 30, 2019 FINDINGS: Cardiovascular structures: Normal vascular enhancement of the pulmonary arteries, no sign of pulmonary embolism. Heart size is normal. Coronary artery calcifications. Right-sided pacemaker again noted. No sign of aneurysm in the thoracic aorta. Mediastinum and diane: No mass or adenopathy. Lungs: 1.9 cm partially calcified granuloma. There are few pulmonary nodules bilaterally. The largest is in the left upper lobe and measures 1.7 x 1.0 cm, previously 1.3 x 0.8 cm. Pleura and pericardium: No effusions. Chest wall and axilla: No mass or adenopathy. Upper abdomen: Unremarkable. Bones: No significant findings. IMPRESSION: No pulmonary embolism or pneumonia. Several pulmonary nodules consistent with metastatic disease. The largest is in the left upper lobe and has slightly increased in size compared to the prior study. Coronary artery disease. Please note that all CT scans at this facility use dose modulation, iterative reconstruction, and/or weight-based dosing when appropriate to reduce radiation dose to as low as reasonably achievable. Dictated by Ailin Steven MD @ Jan 12 2020 4:42PM Signed by Dr. Ailin Steven @ Jan 12 2020 4:49PM
[2020-01-12] MEDS ORDERED: Lidocaine 2% Viscous Solution 15 ML Cup PO PRN (17:08)
[2020-01-12] MEDS ORDERED: HYDROmorphone 2 MG/ML Syringe IVPUSH ONE (17:08)
[2020-01-12] MEDS ORDERED: LORazepam 2 MG/ML SDV IVPUSH ONE (17:08)
--- NOTE | 2020-01-12 17:26 | EDM.PDOC ---
ED HPI GENERAL MEDICAL PROBLEM - General Chief Complaint: Chest Pain Stated Complaint: ABDOMINAL PAIN Time Seen by Provider: 01/12/20 13:55 - History of Present Illness INITIAL COMMENTS - FREE TEXT/NARRATIVE: HPI 59-year-old female with history of metastatic colon CA and multiple admissions for abdominal pain and partial SBOs presents with N/V of one day that is accompanied by poorly characterized chest discomfort and right mid upper arm tenderness to palpation. No identifiable provoking or relieving factors. Passed a small amount of stool this morning, no flatus, no dysuria, no urinary frequency. No recent trauma. M/S/F/SocHx notable for: please see HPI; remainder reviewed with patient and in chart. ROS: Negative constitutional, eye, cardiovascular, pulmonary, GI, , MSK, skin , neurologic, psychiatric, endocrine unless noted in the HPI. Exam HR 113, RR 20, BP 143/89, T 36.4C, SaO2 99% on room air. Gen: pleasant, uncomfortable appearing, appears chronically unwell. Not in extremis. HEENT: NC, AT, PEERL, EOMI. Resp: Clear to auscultation bilaterally, normal work of breathing, no accessory muscle usage. Card: Regular rate and rhythm with no murmurs, rubs, or gallops, extremities warm and well perfused. GI: mild diffuse tenderness palpation, no rebound, no guarding. : No suprapubic tenderness to palpation. MSK: No visible deformities, strength and tone without visually appreciable deficit. Mild diffuse tenderness palpation without visible or palpable abnormalities on the anterior lateral aspect on approximately the one third ( proximal aspect) part of the upper arm, hand warm and well perfused, muscle compartments soft and nontender to palpation. Skin: Normal color with no visible lesions. Neuro: alert and oriented 3, no facial asymmetry, vision and hearing WNL. Psych: Mood and affect appropriate. Labs / Imaging: EKG: ventricularly paced rhythm, negative modified Sgrabossa criteria. WBC 8.04, HB 12.8, d-dimer 5.74, sodium 138, potassium 3.8, glucose 175, calcium 8.0, total bilirubin 1.9, AST 30, ALT 19, alkaline phosphatase 214, troponin <0.050, lipase 38. CT Abd/Pelvis: Small-bowel obstruction. Transition point is likely in the anterior abdomen near the level of the umbilicus where there are matted loops of small bowel and multiple peritoneal implants Small amount of free fluid. No extraluminal air. Multiple hypodense lesions throughout the liver consistent with metastatic disease. Diffuse peritoneal carcinomatosis. Stable appearance of multiloculated mass in the pelvis. Status post cholecystectomy and hysterectomy. XR R Humerus: Amorphous roughly 1 cm ill-defined mineralized density along the anterolateral cortical margin of the proximal humeral diaphysis. No lytic or blastic bone lesion. No fracture. Correlate with area of clinical concern. Contrast MRI of the upper extremity could be performed for better characterization if indicated. CTA Chest: No pulmonary embolism or pneumonia MDM Previous chart, nursing note, labs, imaging, and vitals reviewed. A: 59-year-old female with history of metastatic colon CA and multiple admissions for abdominal pain and partial SBOs presents with N/V of one day that is accompanied by poorly characterized chest discomfort and right mid upper arm tenderness to palpation. DDx: PE, ACS, effusion (pericardial, pleural), dissection, SBO, partial SBO, dehydration, electrolyte abnormalities, RUE lytic lesion. Evaluation: imaging with a small bowel obstruction, management as below. Ventricularly paced ECG without evidence of ischemia, troponin negative. No clear evidence of infection or alternate process on history or exam. Right humeral x-ray with an ill-defined density, further evaluation deferred to the hospitalist, [facility] intact. ED Course: 500 mL NS given. Imaging resulted, no PE, patient with SBO, additional 1 L NS ordered. NG tube ordered. Update patient, patient with significant anxiety regarding NG tube placement , patient with significant opiate tolerance due to underlying metastatic cancer , a further 0.5 mg hydromorphone, 0.5 mg Ativan, and viscous lidocaine order to facilitate NG tube placement. Patient admitted to Dr. Kitchen for further management. Further management of the right humeral lesion deferred to the accepting physician. Impression: SBO. (please reference below for remainder of encounter information) Critical Care Time Organ system(s): gastrointestinal. Intervention: Assessment of the patient, interpretation of studies, communication related to patient care. Time: 30 minutes were spent directly related to patient care exclusive of separately billed procedures. chest pain Pain Score (Numeric/FACES): 8 - Related Data Allergies Allergy/AdvReac Type Severity Reaction Status Date / Time hydrocodone Allergy Unknown Hives Verified 01/12/20 13:58 ibuprofen Allergy Unknown Hives Verified 01/12/20 13:58 morphine Allergy Unknown Seizure Verified 01/12/20 13:58 nitroglycerin Allergy Unknown Difficulty Verified 01/12/20 13:58 Breathing caffeine Allergy Vomiting Verified 01/12/20 13:58 cyanocobalamin (vitamin B12) Allergy Nausea and Verified 01/12/20 13:58 Vomiting diphenhydramine HCl Allergy Excitabilit Verified 01/12/20 13:58 [From Benadryl] y pyridoxine Allergy Nausea and Verified 01/12/20 13:58 Vomiting vitamin B6 Allergy Other Uncoded 01/12/20 13:58 Home Meds: Home Meds metFORMIN [Glucophage] 1,000 mg PO BIDMEALS 05/09/14 [History] LORazepam [Ativan] 1 mg PO BEDTIME PRN 12/26/15 [History] Insulin Glarg,Human.Rec.Analog [LantUS Solostar] 34 units SUBCUT BID 08/06/17 [ History] Pantoprazole [ProTONIX] 40 mg PO .BEFORESUPPER 08/06/17 [History] Insulin Aspart [NovoLOG] 14 unit SUBCUT TIDAC 02/04/18 [History] Loperamide [Imodium] 2 mg PO Q4H PRN MDD loose stool 07/20/18 [History] Estrogens, Conjugated [Premarin Vaginal Crm] 0.5 gram VAG ASDIRECTED 03/01/19 [ History] Loratadine [Claritin] 10 mg PO DAILY PRN 03/01/19 [History] atorvaSTATin Calcium [Lipitor] 80 mg PO DAILY 03/01/19 [History] Valsartan 160 mg PO DAILY 30 Days #30 tablet 03/02/19 [Rx] hydroCHLOROthiazide [Hydrochlorothiazide] 25 mg PO DAILY 30 Days #30 tablet [Rx] Diphenhyd/Lidocaine/Nystatin [Magic Mouthwash] 5 ml PO Q4H PRN MDD Oral Ulcers 11/01/19 [History] Magnesium Oxide 400 mg PO BID 11/01/19 [History] Ondansetron [Zofran ODT] 4 mg PO TID PRN 11/01/19 [History] Docusate Sodium [Colace] 100 mg PO BID #60 cap 12/15/19 [Rx] bisacodyL [Dulcolax] 10 mg RECTAL DAILY PRN #30 supp 12/15/19 [Rx] HYDROmorphone [Dilaudid] 4 mg PO Q4HR PRN 01/05/20 [History] Prochlorperazine [Compazine] 10 mg PO TID PRN 01/05/20 [History] Regorafenib [Stivarga] 160 mg PO BID 01/05/20 [History] amLODIPine [Norvasc] 5 mg PO DAILY 01/05/20 [History] fentaNYL [Fentanyl] 25 mcg PO Q72H 01/05/20 [History] Vancomycin 125 mg PO Q6HR #32 cap 01/08/20 [Rx] Potassium Chloride [Klor-Con M20] 40 meq PO DAILY 01/12/20 [History] polyethylene glycoL 3350 [MiraLAX] 17 gm PO DAILY 01/12/20 [History] Past Medical History HEENT History: Reports: Impaired Vision Other HEENT History: wears glasses Cardiovascular History: Reports: CAD, High Cholesterol, Hypertension, Pacemaker Other Cardiovascular History: Pacer on Righ Side. Port on Left side. 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 LOCOMOTIVE ENGINEER History: x2 Musculoskeletal History: Reports: None Neurological History: Reports: None Psychiatric History: Reports: Anxiety, Depression Endocrine/Metabolic History: Reports: Diabetes, Type II Hematologic History: Reports: None Immunologic History: Reports: None Oncologic (Cancer) History: Reports: Colon, Liver, Metastatic Dermatologic History: Reports: None - Infectious Disease History Infectious Disease History: Reports: C-Difficile, Measles Other Infectious Disease History: childhood - Past Surgical History HEENT Surgical History: Reports: Adenoidectomy, Tonsillectomy Cardiovascular Surgical History: Reports: None Respiratory Surgical History: Reports: Other (See Below) Other Respiratory Surgeries/Procedures: chest tube placements GI Surgical History: Reports: Cholecystectomy, Colon, Hernia Repair/Other Other GI Surgeries/Procedures: colectomy x2 Female Surgical History: Reports: Section, Hysterectomy, Salpingo- Oophorectomy Other Female Surgeries/Procedures: X2 Endocrine Surgical History: Reports: None Neurological Surgical History: Reports: None Musculoskeletal Surgical History: Reports: Other (See Below) Other Musculoskeletal Surgeries/Procedures:: rigth knee pain Oncologic Surgical History: Reports: Other (See Below) Other Oncologic Surgeries/Procedures: Patient currently on oral Chemo Dermatological Surgical History: Reports: None Social & Family History - Family History Family Medical History: Noncontributory GI: Reports: None - Tobacco Use Smoking Status *Q: Never Smoker - Caffeine Use Caffeine Use: Reports: None Caffeine Use Comment: allergic to caffeine - Recreational Drug Use Recreational Drug Use: No - Living Situation & Occupation Living situation: Reports: ED ROS GENERAL - Review of Systems Review Of Systems: See Below ED EXAM, GENERAL - Physical Exam Exam: See Below Course - Vital Signs Last Recorded V/S: Last Vital Signs Temp 36.1 C 01/12/20 16:26 Pulse 119 H 01/12/20 16:26 Resp 20 01/12/20 16:26 BP 130/80 01/12/20 16:26 Pulse Ox 95 01/12/20 16:26 - Orders/Labs/Meds Orders: Active Orders 24 hr Category Date Time Status Patient Status [ADT] Stat ADT 01/12/20 17:58 Active Gastrointestinal Tube Mgmt [RC] ASDIRECTED Care 01/12/20 16:56 Active HYDROmorphone [Dilaudid] Med 01/12/20 16:23 Active 0.5 - 1 mg IVPUSH Q1H PRN Lidocaine 2% [Xylocaine 2% Viscous] Med 01/12/20 17:08 Active 15 ml PO ASDIRECTED PRN Nasogastric Orogastric Tube Insertion [OM.PC] Stat Oth 01/12/20 16:56 Ordered Medication Orders Hydromorphone HCl (Dilaudid) 0.5 - 1 mg IVPUSH Q1H PRN PRN Reason: Pain Last Admin: 01/12/20 16:27 Dose: 1 mg Lidocaine HCl (Xylocaine 2% Viscous) 15 ml PO ASDIRECTED PRN PRN Reason: Agitation Labs: Laboratory Tests 01/12/20 01/12/20 01/12/20 Range/Units 14:15 14:15 14:15 WBC 8.04 (4.0-11.0) K/uL RBC 4.24 L (4.30-5.90) M/uL Hgb 12.8 (12.0-16.0) g/dL Hct 38.6 (36.0-46.0) % MCV 91.0 (80.0-98.0) fL MCH 30.2 (27.0-32.0) pg MCHC 33.2 (31.0-37.0) g/dL RDW Std Deviation 53.7 (28.0-62.0) fl RDW Coeff of Ej 16 H (11.0-15.0) % Plt Count 205 (150-400) K/uL MPV 9.00 (7.40-12.00) fL Neut % (Auto) 70.1 (48.0-80.0) % Lymph % (Auto) 16.4 (16.0-40.0) % [place] % (Auto) 12.9 (0.0-15.0) % Eos % (Auto) 0.4 (0.0-7.0) % Baso % (Auto) 0.2 (0.0-1.5) % Neut # (Auto) 5.6 (1.4-5.7) K/uL Lymph # (Auto) 1.3 (0.6-2.4) K/uL [place] # (Auto) 1.0 H (0.0-0.8) K/uL Eos # (Auto) 0.0 (0.0-0.7) K/uL Baso # (Auto) 0.0 (0.0-0.1) K/uL Nucleated RBC % 0.0 /100WBC Nucleated RBCs # 0 K/uL D-Dimer, Quantitative 5.74 H (0.0-0.50) mg/L FEU Sodium 138 (136-145) mmol/L Potassium 3.8 (3.5-5.1) mmol/L Chloride 101 (98-107) mmol/L Carbon Dioxide 24.9 (21.0-32.0) mmol/L BUN 12 (7.0-18.0) mg/dL Creatinine 1.0 (0.6-1.0) mg/dL Est Cr Clr Drug Dosing 48.50 mL/min Estimated GFR (MDRD) 56.9 ml/min Glucose 175 H (74-106) mg/dL Calcium 8.0 L (8.5-10.1) mg/dL Total Bilirubin 1.8 H (0.2-1.0) mg/dL AST 30 (15-37) IU/L ALT 19 (14-63) IU/L Alkaline Phosphatase 214 H (46-116) U/L Troponin I < 0.050 (0.000-0.056) ng/mL Total Protein 6.5 (6.4-8.2) g/dL Albumin 3.1 L (3.4-5.0) g/dL Globulin 3.4 (2.6-4.0) g/dL Albumin/Globulin Ratio 0.9 (0.9-1.6) Lipase 38 L (73-393) U/L Meds: Medications Generic Name Dose Route Start Last Admin Trade Name Freq PRN Reason Stop Dose Admin Hydromorphone HCl 0.5 - 1 mg 01/12/20 16:23 01/12/20 16:27 Dilaudid IVPUSH 1 mg Q1H PRN Administration Pain Lidocaine HCl 15 ml 01/12/20 17:08 Xylocaine 2% Viscous PO ASDIRECTED PRN Agitation Discontinued Medications Generic Name Dose Route Start Last Admin Trade Name Freq PRN Reason Stop Dose Admin Hydromorphone HCl 0.5 mg 01/12/20 17:08 01/12/20 17:55 Dilaudid IVPUSH 01/12/20 17:09 0.5 mg ONETIME ONE Administration Sodium Chloride 1,000 mls @ 1,000 mls/hr 01/12/20 14:31 Normal Saline IV 01/12/20 15:30 .Bolus ONE Sodium Chloride 500 mls @ 1,000 mls/hr 01/12/20 14:32 01/12/20 14:55 Normal Saline IV 01/12/20 15:01 1,000 mls/hr .Bolus ONE Administration Sodium Chloride 1,000 mls @ 1,000 mls/hr 01/12/20 16:56 Normal Saline IV 01/12/20 17:55 .Bolus ONE Iopamidol 100 ml 01/12/20 16:05 01/12/20 16:14 Isovue-370 (76%) IVPUSH 01/12/20 16:06 100 ml ONETIME STA Administration Lorazepam 0.5 mg 01/12/20 17:08 Ativan IVPUSH 01/12/20 17:09 ONETIME ONE Metoclopramide HCl 10 mg 01/12/20 15:30 01/12/20 15:37 Reglan IVPUSH 01/12/20 15:31 10 mg ONETIME ONE Administration Ondansetron HCl 4 mg 01/12/20 14:31 Zofran IVPUSH 01/12/20 14:32 ONETIME ONE Ondansetron HCl 8 mg 01/12/20 14:32 01/12/20 14:50 Zofran IVPUSH 01/12/20 14:33 8 mg ONETIME ONE Administration Departure - Departure Time of Disposition: 17:16 Disposition: Admitted As Inpatient 67 Clinical Impression: SBO (small bowel obstruction) - Discharge Information Referrals: PCP,Unobtain [Primary Care Provider] - Forms: ED Department Discharge Sepsis Event Note - Evaluation Sepsis Screening Result: No Definite Risk - Focused Exam Vital Signs: Vital Signs Temp Pulse Resp BP Pulse Ox 01/12/20 16:26 36.1 C 119 H 20 130/80 95 01/12/20 15:40 114 H 18 140/83 97 01/12/20 14:24 36.8 C 109 H 16 131/82 95 01/12/20 13:55 36.4 C 113 H 20 143/89 H 99 Date Exam was Performed: 01/12/20 Time Exam was Performed: 17:59 - My Orders Last 24 Hours: My Active Orders 01/12/20 16:23 HYDROmorphone [Dilaudid] 0.5 - 1 mg IVPUSH Q1H PRN 01/12/20 16:56 Gastrointestinal Tube Mgmt [RC] ASDIRECTED Nasogastric Orogastric Tube Insertion [OM.PC] Stat 01/12/20 17:08 Lidocaine 2% [Xylocaine 2% Viscous] 15 ml PO ASDIRECTED PRN 01/12/20 17:58 Patient Status [ADT] Stat - Assessment/Plan Last 24 Hours: My Active Orders 01/12/20 16:23 HYDROmorphone [Dilaudid] 0.5 - 1 mg IVPUSH Q1H PRN 01/12/20 16:56 Gastrointestinal Tube Mgmt [RC] ASDIRECTED Nasogastric Orogastric Tube Insertion [OM.PC] Stat 01/12/20 17:08 Lidocaine 2% [Xylocaine 2% Viscous] 15 ml PO ASDIRECTED PRN 01/12/20 17:58 Patient Status [ADT] Stat
[2020-01-12] MEDS ORDERED: Albuterol/Ipratropium 3.0-0.5 MG/3 ML Neb Soln NEB PRN (18:34)
--- NOTE | 2020-01-12 19:01 | PCM.CONS ---
H&P History of Present Illness - General Date of Service: 01/12/20 Admit Problem/Dx: Admission Diagnosis/Problem Admission Diagnosis/Problem Small bowel obstruction Source of Information: Patient History Limitations: Reports: No Limitations - History of Present Illness Initial Comments - Free Text/Narative: Patient is a 59 year old female with a history of Stage IV colon cancer with mets to liver, peritoneum, and abdominal wall, HTN, CAD, Type II DM, and pacemaker who presents with a one day history of nausea and vomiting. This is associated with abdominal distension and pain. Her last BM was abnormal, but was this am. She was here one week ago with similar, but not as severe symptoms. She was managed conservatively and was discharged home. She has a history of pSBO's but has never required NG placement. She is still full code. She denies fevers or chills. On admission, she was slightly tachycardic but VS were stable. She had an NG placed and 800ml of bright green output was obtained immediately. CT abdomen pelvis shows an area of matted bowel along the anterior abdominal wall associated with peritoneal implants. There is no free air. chest pain Pain Score (Numeric/FACES): 8 - Related Data Allergies/Adverse Reactions: Allergies Allergy/AdvReac Type Severity Reaction Status Date / Time hydrocodone Allergy Unknown Hives Verified 01/12/20 13:58 ibuprofen Allergy Unknown Hives Verified 01/12/20 13:58 morphine Allergy Unknown Seizure Verified 01/12/20 13:58 nitroglycerin Allergy Unknown Difficulty Verified 01/12/20 13:58 Breathing caffeine Allergy Vomiting Verified 01/12/20 13:58 cyanocobalamin (vitamin B12) Allergy Nausea and Verified 01/12/20 13:58 Vomiting diphenhydramine HCl Allergy Excitabilit Verified 01/12/20 13:58 [From Benadryl] y pyridoxine Allergy Nausea and Verified 01/12/20 13:58 Vomiting vitamin B6 Allergy Other Uncoded 01/12/20 13:58 Home Medications: Home Meds metFORMIN [Glucophage] 1,000 mg PO BIDMEALS 05/09/14 [History] LORazepam [Ativan] 1 mg PO BEDTIME PRN 12/26/15 [History] Insulin Glarg,Human.Rec.Analog [LantUS Solostar] 34 units SUBCUT BID 08/06/17 [ History] Pantoprazole [ProTONIX] 40 mg PO .BEFORESUPPER 08/06/17 [History] Insulin Aspart [NovoLOG] 14 unit SUBCUT TIDAC 02/04/18 [History] Loperamide [Imodium] 2 mg PO Q4H PRN MDD loose stool 07/20/18 [History] Estrogens, Conjugated [Premarin Vaginal Crm] 0.5 gram VAG ASDIRECTED 03/01/19 [ History] Loratadine [Claritin] 10 mg PO DAILY PRN 03/01/19 [History] atorvaSTATin Calcium [Lipitor] 80 mg PO DAILY 03/01/19 [History] Valsartan 160 mg PO DAILY 30 Days #30 tablet 03/02/19 [Rx] hydroCHLOROthiazide [Hydrochlorothiazide] 25 mg PO DAILY 30 Days #30 tablet [Rx] Diphenhyd/Lidocaine/Nystatin [Magic Mouthwash] 5 ml PO Q4H PRN MDD Oral Ulcers 11/01/19 [History] Magnesium Oxide 400 mg PO BID 11/01/19 [History] Ondansetron [Zofran ODT] 4 mg PO TID PRN 11/01/19 [History] Docusate Sodium [Colace] 100 mg PO BID #60 cap 12/15/19 [Rx] bisacodyL [Dulcolax] 10 mg RECTAL DAILY PRN #30 supp 12/15/19 [Rx] HYDROmorphone [Dilaudid] 4 mg PO Q4HR PRN 01/05/20 [History] Prochlorperazine [Compazine] 10 mg PO TID PRN 01/05/20 [History] Regorafenib [Stivarga] 160 mg PO BID 01/05/20 [History] amLODIPine [Norvasc] 5 mg PO DAILY 01/05/20 [History] fentaNYL [Fentanyl] 25 mcg PO Q72H 01/05/20 [History] Vancomycin 125 mg PO Q6HR #32 cap 01/08/20 [Rx] Potassium Chloride [Klor-Con M20] 40 meq PO DAILY 01/12/20 [History] polyethylene glycoL 3350 [MiraLAX] 17 gm PO DAILY 01/12/20 [History] Past Medical History HEENT History: Reports: Impaired Vision Other HEENT History: wears glasses Cardiovascular History: Reports: CAD, High Cholesterol, Hypertension, Pacemaker Other Cardiovascular History: Pacer on Righ Side. Port on Left side. 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: , Other (See Below) Other OB/BYN History: x2 Musculoskeletal History: Reports: None Neurological History: Reports: None Psychiatric History: Reports: Anxiety, Depression Endocrine/Metabolic History: Reports: Diabetes, Type II Hematologic History: Reports: None Immunologic History: Reports: None Oncologic (Cancer) History: Reports: Colon, Liver, Metastatic Dermatologic History: Reports: None - Infectious Disease History Infectious Disease History: Reports: C-Difficile, Measles Other Infectious Disease History: childhood - Past Surgical History HEENT Surgical History: Reports: Adenoidectomy, Tonsillectomy Cardiovascular Surgical History: Reports: None Respiratory Surgical History: Reports: Other (See Below) Other Respiratory Surgeries/Procedures: chest tube placements GI Surgical History: Reports: Cholecystectomy, Colon, Hernia Repair/Other Other GI Surgeries/Procedures: colectomy x2 Female Surgical History: Reports: Section, Hysterectomy, Salpingo- Oophorectomy Other Female Surgeries/Procedures: X2 Endocrine Surgical History: Reports: None Neurological Surgical History: Reports: None Musculoskeletal Surgical History: Reports: Other (See Below) Other Musculoskeletal Surgeries/Procedures:: rigth knee pain Oncologic Surgical History: Reports: Other (See Below) Other Oncologic Surgeries/Procedures: Patient currently on oral Chemo Dermatological Surgical History: Reports: None Social & Family History - Family History Family Medical History: Noncontributory GI: Reports: None - Tobacco Use Smoking Status *Q: Never Smoker - Caffeine Use Caffeine Use: Reports: None Caffeine Use Comment: allergic to caffeine - Recreational Drug Use Recreational Drug Use: No - Living Situation & Occupation Living situation: Reports: H&P Review of Systems - Review of Systems: Review Of Systems: Comprehensive ROS is negative, except as noted in HPI. Exam - Exam Exam: See Below - Vital Signs Vital Signs: Last Vital Signs Temp 36.1 C 01/12/20 16:26 Pulse 124 H 01/12/20 17:26 Resp 16 01/12/20 17:26 BP 101/65 01/12/20 18:26 Pulse Ox 97 04/10/20 17:26 Weight: 160 kg - Exam Quality Assessment: Supplemental Oxygen General: Alert, Oriented, Moderate Distress HEENT: Conjunctiva Clear, Mucosa Moist & [place], Posterior Pharynx Clear, Other ( NG in place) Lungs: Clear to Auscultation, Normal Respiratory Effort Cardiovascular: Regular Rate, Regular Rhythm GI/Abdominal Exam: Soft, Distended, Tender (tender around the umbilicus but no tenderness anywhere else). No: Guarding, Rigid, Rebound Extremities: Normal Inspection - Patient Data Lab Results Last 24 hrs: Laboratory Results - last 24 hr 01/12/20 01/12/20 01/12/20 Range/Units 14:15 14:15 14:15 WBC 8.04 (4.0-11.0) K/uL RBC 4.24 L (4.30-5.90) M/uL Hgb 12.8 (12.0-16.0) g/dL Hct 38.6 (36.0-46.0) % MCV 91.0 (80.0-98.0) fL MCH 30.2 (27.0-32.0) pg MCHC 33.2 (31.0-37.0) g/dL RDW Std Deviation 53.7 (28.0-62.0) fl RDW Coeff of Ej 16 H (11.0-15.0) % Plt Count 205 (150-400) K/uL MPV 9.00 (7.40-12.00) fL Neut % (Auto) 70.1 (48.0-80.0) % Lymph % (Auto) 16.4 (16.0-40.0) % [place] % (Auto) 12.9 (0.0-15.0) % Eos % (Auto) 0.4 (0.0-7.0) % Baso % (Auto) 0.2 (0.0-1.5) % Neut # (Auto) 5.6 (1.4-5.7) K/uL Lymph # (Auto) 1.3 (0.6-2.4) K/uL [place] # (Auto) 1.0 H (0.0-0.8) K/uL Eos # (Auto) 0.0 (0.0-0.7) K/uL Baso # (Auto) 0.0 (0.0-0.1) K/uL Nucleated RBC % 0.0 /100WBC Nucleated RBCs # 0 K/uL D-Dimer, Quantitative 5.74 H (0.0-0.50) mg/L FEU Sodium 138 (136-145) mmol/L Potassium 3.8 (3.5-5.1) mmol/L Chloride 101 (98-107) mmol/L Carbon Dioxide 24.9 (21.0-32.0) mmol/L BUN 12 (7.0-18.0) mg/dL Creatinine 1.0 (0.6-1.0) mg/dL Est Cr Clr Drug Dosing 48.50 mL/min Estimated GFR (MDRD) 56.9 ml/min Glucose 175 H (74-106) mg/dL Calcium 8.0 L (8.5-10.1) mg/dL Total Bilirubin 1.8 H (0.2-1.0) mg/dL AST 30 (15-37) IU/L ALT 19 (14-63) IU/L Alkaline Phosphatase 214 H (46-116) U/L Troponin I < 0.050 (0.000-0.056) ng/mL Total Protein 6.5 (6.4-8.2) g/dL Albumin 3.1 L (3.4-5.0) g/dL Globulin 3.4 (2.6-4.0) g/dL Albumin/Globulin Ratio 0.9 (0.9-1.6) Lipase 38 L (73-393) U/L Result Diagrams: 01/12/20 14:15 01/12/20 14:15 Sepsis Event Note - Evaluation Sepsis Screening Result: No Definite Risk - Focused Exam Vital Signs: Vital Signs Temp Pulse Resp BP Pulse Ox 01/12/20 18:26 101/65 01/12/20 18:11 105/75 01/12/20 17:26 124 H 16 114/78 97 01/12/20 16:26 36.1 C 119 H 20 130/80 95 01/12/20 15:40 114 H 18 140/83 97 01/12/20 15:37 113 H 137/79 97 01/12/20 14:24 36.8 C 109 H 16 131/82 95 01/12/20 13:55 36.4 C 113 H 20 143/89 H 99 Date Exam was Performed: 01/12/20 Time Exam was Performed: 19:07 Consult PN Assessment/Plan Procedures: Procedures AGENT NOS ASSAY W/OPTIC (07/20/18) ASSAY OF AMYLASE (11/01/19) ASSAY OF CK (CPK) (12/30/18) ASSAY OF LACTIC ACID (11/01/19) ASSAY OF LIPASE (01/05/20) ASSAY OF MAGNESIUM (01/05/20) ASSAY OF NATRIURETIC PEPTIDE (01/22/19) ASSAY OF PARATHORMONE (07/20/18) ASSAY OF PHOSPHORUS (01/05/20) ASSAY OF PROTEIN URINE (04/05/18) ASSAY OF TROPONIN QUANT (05/21/19) ASSAY THYROID STIM HORMONE (03/01/19) BLOOD CULTURE FOR BACTERIA (01/22/19) C DIFF AMPLIFIED PROBE (01/05/20) CARCINOEMBRYONIC ANTIGEN (12/12/19) CHEMILUMINESCENT ASSAY (07/20/18) CHEMO IV INFUS EACH ADDL SEQ (09/20/19) CHEMO IV INFUSION 1 HR (09/20/19) CHEMO IV INFUSION ADDL HR (09/20/19) CHEMO IV PUSH ADDL DRUG (04/04/19) CHEMO PROLONG INFUSE W/PUMP (04/04/19) CHEST X-RAY 1 VIEW FRONTAL (08/27/17) CLOSTRIDIUM AG IA (01/05/20) COMPLETE CBC W/AUTO DIFF WBC (01/05/20) COMPREHEN METABOLIC PANEL (01/05/20) CRITICAL CARE ADDL 30 MIN (05/21/19) CRITICAL CARE FIRST HOUR (05/21/19) CT ABD & PELV 1/> REGNS (07/20/18) CT ABD & PELV W/CONTRAST (11/20/19) CT ABD & PELVIS W/O CONTRAST (01/05/20) CT ANGIOGRAPHY CHEST (05/21/19) CT HEAD/BRAIN W/O DYE (03/24/19) CT THORAX W/DYE (11/30/19) CULTURE SCREEN ONLY (08/27/17) DRAW BLOOD OFF VENOUS DEVICE (12/12/19) ECHO EXAM OF ABDOMEN (07/20/18) ELECTROCARDIOGRAM TRACING (11/20/19) EMERGENCY DEPT VISIT (01/05/20) EMERGENCY DEPT VISIT (05/29/19) EMERGENCY DEPT VISIT (03/01/19) EMERGENCY DEPT VISIT (08/27/17) EMERGENCY DEPT VISIT (08/06/17) EMERGENCY DEPT VISIT (08/02/17) EMERGENCY DEPT VISIT (04/08/17) EMERGENCY DEPT VISIT (02/02/16) EMERGENCY DEPT VISIT (12/26/15) EMERGENCY DEPT VISIT (12/26/14) EMERGENCY DEPT VISIT (12/02/14) EMERGENCY DEPT VISIT (09/15/14) EMERGENCY DEPT VISIT (05/12/14) EMERGENCY DEPT VISIT (05/12/14) EMERGENCY DEPT VISIT (05/09/14) EMERGENCY DEPT VISIT (05/09/14) EVALUATE PT USE OF INHALER (04/08/17) EXTREMITY STUDY (07/20/18) FIBRIN DEGRADATION QUANT (04/08/17) GLUCOSE BLOOD TEST (01/05/20) GLYCOSYLATED HEMOGLOBIN TEST (01/01/15) HYDRATE IV INFUSION ADD-ON (01/05/20) HYDRATION IV INFUSION INIT (08/27/17) IIV4 VACC NO PRSV 0.5 ML IM (07/04/19) IMMUNIZATION ADMIN (07/04/19) INSERTION OF CHEST TUBE (05/21/19) IRRIG DRUG DELIVERY DEVICE (12/12/19) LIPID PANEL (01/01/15) METABOLIC PANEL TOTAL CA (01/05/20) PROTHROMBIN TIME (05/21/19) ROUTINE VENIPUNCTURE (01/05/20) STOOL CULTR AEROBIC BACT EA (07/20/18) STREP A ASSAY W/OPTIC (08/27/17) TDAP VACCINE 7 YRS/> IM (02/02/16) THER/DIAG CONCURRENT INF (01/17/19) THER/PROPH/DIAG INJ IV PUSH (01/05/20) THER/PROPH/DIAG INJ SC/IM (04/05/18) THER/PROPH/DIAG IV INF ADDON (03/01/19) THER/PROPH/DIAG IV INF INIT (08/15/19) TTE W/DOPPLER COMPLETE (04/10/19) TX/PRO/DX INJ NEW DRUG ADDON (01/05/20) TX/PRO/DX INJ SAME DRUG 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 (01/05/20) TX/PROPH/DG ADDL SEQ IV INF (07/04/19) UR ALBUMIN SEMIQUANTITATIVE (01/01/15) URINALYSIS AUTO W/O SCOPE (01/05/20) URINALYSIS AUTO W/SCOPE (11/20/19) URINALYSIS NONAUTO W/SCOPE (07/03/14) URINE BACTERIA CULTURE (12/02/14) URINE CULTURE/COLONY COUNT (11/01/19) US EXAM ABDOM COMPLETE (03/11/18) VITAMIN D 25 HYDROXY (07/20/18) X-RAY EXAM ABDOMEN 1 VIEW (05/29/19) X-RAY EXAM ABDOMEN 2 VIEWS (11/01/19) X-RAY EXAM CHEST 1 VIEW (05/21/19) X-RAY EXAM OF ABDOMEN (08/06/17) X-RAY EXAM OF ANKLE (08/02/17) X-RAY EXAM OF FOOT (08/02/17) X-RAY EXAM OF FOOT (12/26/14) X-RAY EXAM OF KNEE 3 (08/02/17) X-RAY EXAM OF LOWER LEG (02/02/16) (1) Small bowel obstruction SNOMED Code(s): 232722975 Code(s): K56.609 - UNSP INTESTNL OBST, UNSP TO PARTIAL VERSUS COMPLETE OBST Current Visit: Yes Problem List Initiated/Reviewed/Updated: Yes Plan: The patient has a SBO secondary to her metastatic disease. NG output was high upon placement. She is not unstable at this point and her abdomen is showing no peritoneal signs. Will check lactate. Ok to treat with conservative measures at this point. Continue fluid resuscitation, strict NPO status with strict I and Os. Will monitor closely overnight. If patient is not showing signs of improvement in next 24-48 hours, may need to be transferred to hospital with colorectal surgeon and/or surgical oncologist for surgery. Will continue to follow. Appreciate medical teams care of patient. Please call with questions or concerns.
--- NOTE | 2020-01-12 19:14 | CR ---
Indication: Tube placement Technique: KUB 1 view Comparison: CT abdomen from same date Findings/Impression: : Gastric drainage tube tip terminates at the level of the distal stomach. There are few loops of air-filled, dilated small bowel in the upper abdomen. Residual intravenous contrast within the urinary bladder and renal collecting systems. Surgical clips in the right upper quadrant. Dictated by Ailin Steven MD @ Jan 12 2020 7:13PM Signed by Dr. Ailin Steven @ Jan 12 2020 7:13PM
[2020-01-12] MEDS: Enoxaparin 40 MG/0.4 ML Syringe SUBCUT SCH (19:40)
[2020-01-12] MEDS: Lactated Ringers 1,000 ML IV SCH (20:01)
--- NOTE | 2020-01-12 20:05 | PCM.HP.2 ---
H&P History of Present Illness - General Date of Service: 01/12/20 Admit Problem/Dx: Admission Diagnosis/Problem Admission Diagnosis/Problem Small bowel obstruction - History of Present Illness Initial Comments - Free Text/Narative: Patient is a 59 year old female with a history of Stage IV colon cancer with mets to liver, peritoneum, and abdominal wall, HTN, CAD, Type II DM, and pacemaker who presents to ER with c/p Nausea and vomiting that started today and has been getting worse. N/V is associated with abdominal distension and pain. States her last bowel moment was this AM and it was very small. Patient was admitted here one week ago with similar complaints but at that time her symptoms were not as bad and she was discharged after conservative management. Patient denied any fever, chills, syncope, fall, cough, In the ER NG placed and 800ml of bright green output was obtained immediately. CT abdomen pelvis shows an area of matted bowel along the anterior abdominal wall associated with peritoneal implants. There is no free air. Surgery was consulted and recommended conservative care for now. Patient is being admitted for further care. chest pain Pain Score (Numeric/FACES): 8 - Related Data Allergies/Adverse Reactions: Allergies Allergy/AdvReac Type Severity Reaction Status Date / Time hydrocodone Allergy Unknown Hives Verified 01/12/20 19:54 ibuprofen Allergy Unknown Hives Verified 01/12/20 19:54 morphine Allergy Unknown Seizure Verified 01/12/20 19:54 nitroglycerin Allergy Unknown Difficulty Verified 01/12/20 19:54 Breathing caffeine Allergy Vomiting Verified 01/12/20 19:54 cyanocobalamin (vitamin B12) Allergy Nausea and Verified 01/12/20 19:54 Vomiting diphenhydramine HCl Allergy Excitabilit Verified 01/12/20 19:54 [From Benadryl] y pyridoxine Allergy Nausea and Verified 01/12/20 19:54 Vomiting vitamin B6 Allergy Other Uncoded 01/12/20 19:54 Home Medications: Home Meds metFORMIN [Glucophage] 1,000 mg PO BIDMEALS 05/09/14 [History] LORazepam [Ativan] 1 mg PO BEDTIME PRN 12/26/15 [History] Insulin Glarg,Human.Rec.Analog [LantUS Solostar] 34 units SUBCUT BID PRN [History] Pantoprazole [ProTONIX] 40 mg PO . BEFORE SUPPER 08/06/17 [History] Insulin Aspart [NovoLOG] 14 unit SUBCUT TIDAC 02/04/18 [History] Loperamide [Imodium] 2 mg PO Q4H PRN MDD loose stool 07/20/18 [History] Estrogens, Conjugated [Premarin Vaginal Crm] 0.5 gram VAG ASDIRECTED 03/01/19 [ History] Loratadine [Claritin] 10 mg PO DAILY PRN 03/01/19 [History] atorvaSTATin Calcium [Lipitor] 80 mg PO DAILY 03/01/19 [History] Valsartan 160 mg PO DAILY 30 Days #30 tablet 03/02/19 [Rx] hydroCHLOROthiazide [Hydrochlorothiazide] 25 mg PO DAILY 30 Days #30 tablet [Rx] Diphenhyd/Lidocaine/Nystatin [Magic Mouthwash] 5 ml PO Q4H PRN MDD Oral Ulcers 11/01/19 [History] Magnesium Oxide 400 mg PO BID 11/01/19 [History] Ondansetron [Zofran ODT] 4 mg PO Q4HR PRN 11/01/19 [History] Docusate Sodium [Colace] 100 mg PO BID #60 cap 12/15/19 [Rx] bisacodyL [Dulcolax] 10 mg RECTAL DAILY PRN #30 supp 12/15/19 [Rx] HYDROmorphone [Dilaudid] 4 mg PO Q4HR PRN 01/05/20 [History] Prochlorperazine [Compazine] 10 mg PO TID PRN 01/05/20 [History] Regorafenib [Stivarga] 160 mg PO BID 01/05/20 [History] amLODIPine [Norvasc] 5 mg PO DAILY 01/05/20 [History] fentaNYL [Fentanyl] 25 mcg PO Q72H 01/05/20 [History] Vancomycin 125 mg PO Q6HR #32 cap 01/08/20 [Rx] Potassium Chloride [Klor-Con M20] 40 meq PO DAILY 01/12/20 [History] polyethylene glycoL 3350 [MiraLAX] 17 gm PO DAILY 01/12/20 [History] Past Medical History HEENT History: Reports: Impaired Vision Other HEENT History: wears glasses Cardiovascular History: Reports: CAD, High Cholesterol, Hypertension, Pacemaker Other Cardiovascular History: Pacer on Righ Side. Port on Left side. 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: , Other (See Below) Other OB/BYN History: x2 Musculoskeletal History: Reports: None Neurological History: Reports: None Psychiatric History: Reports: Anxiety, Depression Endocrine/Metabolic History: Reports: Diabetes, Type II Hematologic History: Reports: None Immunologic History: Reports: None Oncologic (Cancer) History: Reports: Colon, Liver, Metastatic Dermatologic History: Reports: None - Infectious Disease History Infectious Disease History: Reports: C-Difficile, Measles Other Infectious Disease History: childhood - Past Surgical History HEENT Surgical History: Reports: Adenoidectomy, Tonsillectomy Cardiovascular Surgical History: Reports: None Respiratory Surgical History: Reports: Other (See Below) Other Respiratory Surgeries/Procedures: chest tube placements GI Surgical History: Reports: Cholecystectomy, Colon, Hernia Repair/Other Other GI Surgeries/Procedures: colectomy x2 Female Surgical History: Reports: Section, Hysterectomy, Salpingo- Oophorectomy Other Female Surgeries/Procedures: X2 Endocrine Surgical History: Reports: None Neurological Surgical History: Reports: None Musculoskeletal Surgical History: Reports: Other (See Below) Other Musculoskeletal Surgeries/Procedures:: rigth knee pain Oncologic Surgical History: Reports: Other (See Below) Other Oncologic Surgeries/Procedures: Patient currently on oral Chemo Dermatological Surgical History: Reports: None Social & Family History - Family History Family Medical History: Noncontributory GI: Reports: None - Tobacco Use Smoking Status *Q: Never Smoker - Caffeine Use Caffeine Use: Reports: None Caffeine Use Comment: allergic to caffeine - Recreational Drug Use Recreational Drug Use: No - Living Situation & Occupation Living situation: Reports: H&P Review of Systems - Review of Systems: Review Of Systems: See Below General: Reports: Malaise, Weakness. Denies: Fever, Chills HEENT: Denies: Dysphasia, Eye Pain, Headaches Pulmonary: Denies: Shortness of Breath, Wheezing Cardiovascular: Reports: Dyspnea on Exertion. Denies: Palpitations Gastrointestinal: Reports: Abdominal Pain, Constipation, Decreased Appetite, Difficulty Swallowing, Distension, Nausea, Vomiting. Denies: Black Stool, Bloody Stool, Diarrhea, Hematemesis, Hematochezia Musculoskeletal: Denies: Neck Pain, Shoulder Pain, Arm Pain Skin: Denies: Cyanosis, Jaundice, Mottled Psychiatric: Reports: Anxiety. Denies: Confusion, Depression, Mood Lability Exam - Exam Exam: See Below - Vital Signs Vital Signs: Last Vital Signs Temp 36.1 C 01/12/20 16:26 Pulse 124 H 01/12/20 17:26 Resp 16 01/12/20 17:26 BP 101/65 01/12/20 18:26 Pulse Ox 97 01/12/20 17:26 Weight: 160 kg - Exam General: Alert, Oriented, Moderate Distress Neck: Supple Lungs: Clear to Auscultation, Normal Respiratory Effort Cardiovascular: Regular Rate, Regular Rhythm GI/Abdominal Exam: Distended, Tender, Abnormal Bowel Sounds - Patient Data Lab Results Last 24 hrs: Laboratory Results - last 24 hr 01/12/20 01/12/20 01/12/20 Range/Units 14:15 14:15 14:15 WBC 8.04 (4.0-11.0) K/uL RBC 4.24 L (4.30-5.90) M/uL Hgb 12.8 (12.0-16.0) g/dL Hct 38.6 (36.0-46.0) % MCV 91.0 (80.0-98.0) fL MCH 30.2 (27.0-32.0) pg MCHC 33.2 (31.0-37.0) g/dL RDW Std Deviation 53.7 (28.0-62.0) fl RDW Coeff of Ej 16 H (11.0-15.0) % Plt Count 205 (150-400) K/uL MPV 9.00 (7.40-12.00) fL Neut % (Auto) 70.1 (48.0-80.0) % Lymph % (Auto) 16.4 (16.0-40.0) % [place] % (Auto) 12.9 (0.0-15.0) % Eos % (Auto) 0.4 (0.0-7.0) % Baso % (Auto) 0.2 (0.0-1.5) % Neut # (Auto) 5.6 (1.4-5.7) K/uL Lymph # (Auto) 1.3 (0.6-2.4) K/uL [place] # (Auto) 1.0 H (0.0-0.8) K/uL Eos # (Auto) 0.0 (0.0-0.7) K/uL Baso # (Auto) 0.0 (0.0-0.1) K/uL Nucleated RBC % 0.0 /100WBC Nucleated RBCs # 0 K/uL D-Dimer, Quantitative 5.74 H (0.0-0.50) mg/L FEU Lactate (0.20-2.00) mmol/L Sodium 138 (136-145) mmol/L Potassium 3.8 (3.5-5.1) mmol/L Chloride 101 (98-107) mmol/L Carbon Dioxide 24.9 (21.0-32.0) mmol/L BUN 12 (7.0-18.0) mg/dL Creatinine 1.0 (0.6-1.0) mg/dL Est Cr Clr Drug Dosing 48.50 mL/min Estimated GFR (MDRD) 56.9 ml/min Glucose 175 H (74-106) mg/dL Calcium 8.0 L (8.5-10.1) mg/dL Total Bilirubin 1.8 H (0.2-1.0) mg/dL AST 30 (15-37) IU/L ALT 19 (14-63) IU/L Alkaline Phosphatase 214 H (46-116) U/L Troponin I < 0.050 (0.000-0.056) ng/mL Total Protein 6.5 (6.4-8.2) g/dL Albumin 3.1 L (3.4-5.0) g/dL Globulin 3.4 (2.6-4.0) g/dL Albumin/Globulin Ratio 0.9 (0.9-1.6) Lipase 38 L (73-393) U/L 01/12/20 Range/Units 19:20 WBC (4.0-11.0) K/uL RBC (4.30-5.90) M/uL Hgb (12.0-16.0) g/dL Hct (36.0-46.0) % MCV (80.0-98.0) fL MCH (27.0-32.0) pg MCHC (31.0-37.0) g/dL RDW Std Deviation (28.0-62.0) fl RDW Coeff of Ej (11.0-15.0) % Plt Count (150-400) K/uL MPV (7.40-12.00) fL Neut % (Auto) (48.0-80.0) % Lymph % (Auto) (16.0-40.0) % [place] % (Auto) (0.0-15.0) % Eos % (Auto) (0.0-7.0) % Baso % (Auto) (0.0-1.5) % Neut # (Auto) (1.4-5.7) K/uL Lymph # (Auto) (0.6-2.4) K/uL [place] # (Auto) (0.0-0.8) K/uL Eos # (Auto) (0.0-0.7) K/uL Baso # (Auto) (0.0-0.1) K/uL Nucleated RBC % /100WBC Nucleated RBCs # K/uL D-Dimer, Quantitative (0.0-0.50) mg/L FEU Lactate 1.1 (0.20-2.00) mmol/L Sodium (136-145) mmol/L Potassium (3.5-5.1) mmol/L Chloride (98-107) mmol/L Carbon Dioxide (21.0-32.0) mmol/L BUN (7.0-18.0) mg/dL Creatinine (0.6-1.0) mg/dL Est Cr Clr Drug Dosing mL/min Estimated GFR (MDRD) ml/min Glucose (74-106) mg/dL Calcium (8.5-10.1) mg/dL Total Bilirubin (0.2-1.0) mg/dL AST (15-37) IU/L ALT (14-63) IU/L Alkaline Phosphatase (46-116) U/L Troponin I (0.000-0.056) ng/mL Total Protein (6.4-8.2) g/dL Albumin (3.4-5.0) g/dL Globulin (2.6-4.0) g/dL Albumin/Globulin Ratio (0.9-1.6) Lipase (73-393) U/L Result Diagrams: 01/13/20 06:05 01/13/20 06:05 Sepsis Event Note - Evaluation Sepsis Screening Result: No Definite Risk - Focused Exam Vital Signs: Vital Signs Temp Pulse Resp BP Pulse Ox 01/12/20 18:26 101/65 01/12/20 18:11 105/75 01/12/20 17:26 124 H 16 114/78 97 01/12/20 16:26 36.1 C 119 H 20 130/80 95 01/12/20 15:40 114 H 18 140/83 97 01/12/20 15:37 113 H 137/79 97 01/12/20 14:24 36.8 C 109 H 16 131/82 95 01/12/20 13:55 36.4 C 113 H 20 143/89 H 99 Date Exam was Performed: 01/13/20 Time Exam was Performed: 11:32 - Problem List (1) Small bowel obstruction SNOMED Code(s): 981951645 ICD Code: K56.609 - UNSP INTESTNL OBST, UNSP TO PARTIAL VERSUS COMPLETE OBST Status: Acute Current Visit: Yes (2) Abdominal pain SNOMED Code(s): 31124953 ICD Code: R10.9 - UNSPECIFIED ABDOMINAL PAIN Status: Acute Current Visit : No Qualifiers: Abdominal location: generalized Qualified Code(s): R10.84 - Generalized abdominal pain (3) Metastatic colon cancer in female SNOMED Code(s): 404101222, 856404467 ICD Code: C18.9 - MALIGNANT NEOPLASM OF COLON, UNSPECIFIED Status: Acute Priority: High Current Visit: No (4) Diabetes type 2, controlled SNOMED Code(s): 57663146, 458437528 ICD Code: E11.9 - TYPE 2 DIABETES MELLITUS WITHOUT COMPLICATIONS Status: Chronic Priority: High Current Visit: No Qualifiers: 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: without [facility] use Diabetes mellitus complication status: without complication Qualified Code(s): E11.9 - Type 2 diabetes mellitus without complications (5) Hypertension SNOMED Code(s): 05510416 ICD Code: I10 - ESSENTIAL (PRIMARY) HYPERTENSION Status: Chronic Current Visit: No Qualifiers: Hypertension type: unspecified Qualified Code(s): I10 - Essential (primary ) hypertension (6) Pacemaker SNOMED Code(s): 023342675 ICD Code: Z95.0 - PRESENCE OF CARDIAC PACEMAKER Status: Chronic Current Visit: No Problem List Initiated/Reviewed/Updated: Yes Orders Last 24hrs: Active Orders 24 hr Category Date Time Status Patient Status [ADT] Stat ADT 01/12/20 17:58 Active Ambulate [RC] ASDIRECTED Care 01/12/20 18:34 Active Gastrointestinal Tube Mgmt [RC] ASDIRECTED Care 01/12/20 16:56 Active Oxygen Therapy [RC] PRN Care 01/12/20 18:34 Active Pulse Oximetry [RC] PRN Care 01/12/20 18:39 Active RT Aerosol Therapy [RC] ASDIRECTED Care 01/12/20 18:42 Active VTE/DVT Education [RC] PER UNIT ROUTINE Care 01/12/20 18:34 Active Vital Signs [RC] Q4H Care 01/12/20 18:34 Active Nothing per Oral Now Diet [DIET] Diet 01/12/20 Dinner Active CBC WITH AUTO DIFF [HEME] AM Lab 01/13/20 05:11 Ordered CMP [COMPREHENSIVE METABOLIC PN,CMP] [CHEM] AM Lab 01/13/20 05:11 Ordered MAGNESIUM [CHEM] AM Lab 01/13/20 05:11 Ordered PHOSPHORUS [CHEM] AM Lab 01/13/20 05:11 Ordered Albuterol/Ipratropium [DuoNeb 3.0-0.5 MG/3 ML] Med 01/12/20 18:34 Active 3 ml NEB Q4HRRT PRN Docusate Sodium/Sennosides [Senokot-S] Med 01/12/20 21:00 Active 2 each PO BEDTIME Enoxaparin [Lovenox] Med 01/12/20 18:45 Active 40 mg SUBCUT Q24H HYDROmorphone [Dilaudid] Med 01/12/20 18:34 Active 1 mg IVPUSH Q4H PRN Lactated Ringers [Ringers, Lactated] 1,000 ml Med 01/12/20 18:45 Active IV ASDIRECTED Lidocaine 2% [Xylocaine 2% Viscous] Med 01/12/20 17:08 Active 15 ml PO ASDIRECTED PRN Ondansetron [Zofran] Med 01/12/20 18:34 Active 4 mg IVPUSH Q4H PRN Pantoprazole [ProTONIX IV] Med 01/12/20 21:00 Active 40 mg IV Q12HR Nasogastric Orogastric Tube Insertion [OM.PC] Stat Oth 01/12/20 16:56 Ordered Medication Orders Albuterol/Ipratropium (Duoneb 3.0-0.5 Mg/3 Ml) 3 ml NEB Q4HRRT PRN PRN Reason: Shortness Of Breath/wheezing Enoxaparin Sodium (Lovenox) 40 mg SUBCUT Q24H MARIA T Last Admin: 01/12/20 19:40 Dose: 40 mg Hydromorphone HCl (Dilaudid) 1 mg IVPUSH Q4H PRN PRN Reason: Pain (severe 7-10) Lactated Ringer's (Ringers, Lactated) 1,000 mls @ 125 mls/hr IV ASDIRECTED [facility] Last Admin: 01/12/20 20:01 Dose: 125 mls/hr Lidocaine HCl (Xylocaine 2% Viscous) 15 ml PO ASDIRECTED PRN PRN Reason: Agitation Ondansetron HCl (Zofran) 4 mg IVPUSH Q4H PRN PRN Reason: Nausea/Vomiting Pantoprazole Sodium (Protonix Iv) 40 mg IV Q12HR [facility] Senna/Docusate Sodium (Senokot-S) 2 each PO BEDTIME [facility] Assessment/Plan Comment:: 59 y/o F admitted for SBO, NG tube in place Admit to [facility] Keep NPO Start IV fluids LR@ 125cc/hr Dilaudid for pain control PPI daily cont NG tube on intermittent suction Start Bowel regimen Surgery on board, appreciate recommendations cont to monitor closely Discussed code status again during this admission, Patient states she doesn't want to be resuscitated or intubated in even she stops breathing or her heart stops. Patient will be DNR/DNI.
[2020-01-12] MEDS: Docusate Sodium/Sennosides Tab PO SCH (21:33)
[2020-01-12] MEDS: Pantoprazole 40 MG Vial IV SCH (21:33)
[2020-01-12] MEDS: Ondansetron 4 MG/2 ML SDV IVPUSH PRN (21:43)
[2020-01-12] MEDS: HYDROmorphone 2 MG/ML Syringe IVPUSH PRN (22:25)
[2020-01-13] MEDS: HYDROmorphone 2 MG/ML Syringe IVPUSH PRN ×6 (02:38→23:52)
[2020-01-13] MEDS: Lactated Ringers 1,000 ML IV SCH ×3 (04:26→20:12)
[2020-01-13 07:06] LABS: BLOOD UREA NITROGEN,BUN 9 mg/dL (7.0-18.0); CARBON DIOXIDE,CO2 22.4 mmol/L (21.0-32.0); CHLORIDE,CL 103 mmol/L (98-107); GLUCOSE RANDOM 133 mg/dL (74-106); POTASSIUM,K 3.5 mmol/L (3.5-5.1); SODIUM,NA 140 mmol/L (136-145)
[2020-01-13] MEDS: Pantoprazole 40 MG Vial IV SCH ×2 (08:51→20:06)
--- NOTE | 2020-01-13 09:22 | PCM.CONSN ---
- General Info Date of Service: 01/13/20 Functional Status: Reports: Other (Patient still complaining of abdominal pain and diffuse body aches. ) - Review of Systems General: Reports: Weakness, Malaise HEENT: Reports: No Symptoms Pulmonary: Reports: No Symptoms Cardiovascular: Reports: No Symptoms Gastrointestinal: Reports: Abdominal Pain (mild, diffuse) Genitourinary: Reports: No Symptoms Musculoskeletal: Reports: No Symptoms Skin: Reports: No Symptoms - Patient Data Vitals - Most Recent: Last Vital Signs Temp 37.1 C 01/13/20 04:12 Pulse 105 H 01/13/20 04:12 Resp 17 01/13/20 04:12 BP 135/73 01/13/20 04:12 Pulse Ox 96 01/13/20 04:12 Weight - Most Recent: 160 kg I&O - Last 24 Hours: Intake & Output 01/12/20 01/13/20 01/13/20 22:59 06:59 14:59 Intake Total 1000 1010 Output Total 2000 Balance 1000 -990 Lab Results Last 24 Hours: Laboratory Results - last 24 hr 01/12/20 01/12/20 01/12/20 Range/Units 14:15 14:15 14:15 WBC 8.04 (4.0-11.0) K/uL RBC 4.24 L (4.30-5.90) M/uL Hgb 12.8 (12.0-16.0) g/dL Hct 38.6 (36.0-46.0) % MCV 91.0 (80.0-98.0) fL MCH 30.2 (27.0-32.0) pg MCHC 33.2 (31.0-37.0) g/dL RDW Std Deviation 53.7 (28.0-62.0) fl RDW Coeff of Ej 16 H (11.0-15.0) % Plt Count 205 (150-400) K/uL MPV 9.00 (7.40-12.00) fL Neut % (Auto) 70.1 (48.0-80.0) % Lymph % (Auto) 16.4 (16.0-40.0) % Z[place]ala % (Auto) 12.9 (0.0-15.0) % Eos % (Auto) 0.4 (0.0-7.0) % Baso % (Auto) 0.2 (0.0-1.5) % Neut # (Auto) 5.6 (1.4-5.7) K/uL Lymph # (Auto) 1.3 (0.6-2.4) K/uL [place]ala # (Auto) 1.0 H (0.0-0.8) K/uL Eos # (Auto) 0.0 (0.0-0.7) K/uL Baso # (Auto) 0.0 (0.0-0.1) K/uL Nucleated RBC % 0.0 /100WBC Nucleated RBCs # 0 K/uL D-Dimer, Quantitative 5.74 H (0.0-0.50) mg/L FEU Lactate (0.20-2.00) mmol/L Sodium 138 (136-145) mmol/L Potassium 3.8 (3.5-5.1) mmol/L Chloride 101 (98-107) mmol/L Carbon Dioxide 24.9 (21.0-32.0) mmol/L BUN 12 (7.0-18.0) mg/dL Creatinine 1.0 (0.6-1.0) mg/dL Est Cr Clr Drug Dosing 48.50 mL/min Estimated GFR (MDRD) 56.9 ml/min Glucose 175 H (74-106) mg/dL POC Glucose (60-110) mg/dL Calcium 8.0 L (8.5-10.1) mg/dL Phosphorus (2.6-4.7) mg/dL Magnesium (1.8-2.4) mg/dL Total Bilirubin 1.8 H (0.2-1.0) mg/dL AST 30 (15-37) IU/L ALT 19 (14-63) IU/L Alkaline Phosphatase 214 H (46-116) U/L Troponin I < 0.050 (0.000-0.056) ng/mL Total Protein 6.5 (6.4-8.2) g/dL Albumin 3.1 L (3.4-5.0) g/dL Globulin 3.4 (2.6-4.0) g/dL Albumin/Globulin Ratio 0.9 (0.9-1.6) Lipase 38 L (73-393) U/L 01/12/20 01/12/20 01/13/20 Range/Units 19:20 23:20 06:05 WBC 8.41 (4.0-11.0) K/uL RBC 4.11 L (4.30-5.90) M/uL Hgb 12.4 (12.0-16.0) g/dL Hct 37.7 (36.0-46.0) % MCV 91.7 (80.0-98.0) fL MCH 30.2 (27.0-32.0) pg MCHC 32.9 (31.0-37.0) g/dL RDW Std Deviation 54.7 (28.0-62.0) fl RDW Coeff of Ej 16 H (11.0-15.0) % Plt Count 220 (150-400) K/uL MPV 9.30 (7.40-12.00) fL Neut % (Auto) 60.3 (48.0-80.0) % Lymph % (Auto) 24.7 (16.0-40.0) % Z[place]ala % (Auto) 14.0 (0.0-15.0) % Eos % (Auto) 0.8 (0.0-7.0) % Baso % (Auto) 0.2 (0.0-1.5) % Neut # (Auto) 5.1 (1.4-5.7) K/uL Lymph # (Auto) 2.1 (0.6-2.4) K/uL Z[place]ala # (Auto) 1.2 H (0.0-0.8) K/uL Eos # (Auto) 0.1 (0.0-0.7) K/uL Baso # (Auto) 0.0 (0.0-0.1) K/uL Nucleated RBC % 0.0 /100WBC Nucleated RBCs # 0 K/uL D-Dimer, Quantitative (0.0-0.50) mg/L FEU Lactate 1.1 (0.20-2.00) mmol/L Sodium (136-145) mmol/L Potassium (3.5-5.1) mmol/L Chloride (98-107) mmol/L Carbon Dioxide (21.0-32.0) mmol/L BUN (7.0-18.0) mg/dL Creatinine (0.6-1.0) mg/dL Est Cr Clr Drug Dosing mL/min Estimated GFR (MDRD) ml/min Glucose (74-106) mg/dL POC Glucose 141 H (60-110) mg/dL Calcium (8.5-10.1) mg/dL Phosphorus (2.6-4.7) mg/dL Magnesium (1.8-2.4) mg/dL Total Bilirubin (0.2-1.0) mg/dL AST (15-37) IU/L ALT (14-63) IU/L Alkaline Phosphatase (46-116) U/L Troponin I (0.000-0.056) ng/mL Total Protein (6.4-8.2) g/dL Albumin (3.4-5.0) g/dL Globulin (2.6-4.0) g/dL Albumin/Globulin Ratio (0.9-1.6) Lipase (73-393) U/L 01/13/20 Range/Units 06:05 WBC (4.0-11.0) K/uL RBC (4.30-5.90) M/uL Hgb (12.0-16.0) g/dL Hct (36.0-46.0) % MCV (80.0-98.0) fL MCH (27.0-32.0) pg MCHC (31.0-37.0) g/dL RDW Std Deviation (28.0-62.0) fl RDW Coeff of Ej (11.0-15.0) % Plt Count (150-400) K/uL MPV (7.40-12.00) fL Neut % (Auto) (48.0-80.0) % Lymph % (Auto) (16.0-40.0) % Zavala % (Auto) (0.0-15.0) % Eos % (Auto) (0.0-7.0) % Baso % (Auto) (0.0-1.5) % Neut # (Auto) (1.4-5.7) K/uL Lymph # (Auto) (0.6-2.4) K/uL Z[place]ala # (Auto) (0.0-0.8) K/uL Eos # (Auto) (0.0-0.7) K/uL Baso # (Auto) (0.0-0.1) K/uL Nucleated RBC % /100WBC Nucleated RBCs # K/uL D-Dimer, Quantitative (0.0-0.50) mg/L FEU Lactate (0.20-2.00) mmol/L Sodium 140 (136-145) mmol/L Potassium 3.5 (3.5-5.1) mmol/L Chloride 103 (98-107) mmol/L Carbon Dioxide 22.4 (21.0-32.0) mmol/L BUN 9 (7.0-18.0) mg/dL Creatinine 0.9 (0.6-1.0) mg/dL Est Cr Clr Drug Dosing 53.89 mL/min Estimated GFR (MDRD) > 60.0 ml/min Glucose 133 H (74-106) mg/dL POC Glucose (60-110) mg/dL Calcium 7.6 L (8.5-10.1) mg/dL Phosphorus 2.2 L (2.6-4.7) mg/dL Magnesium 1.5 L (1.8-2.4) mg/dL Total Bilirubin 1.4 H (0.2-1.0) mg/dL AST 24 (15-37) IU/L ALT 14 (14-63) IU/L Alkaline Phosphatase 180 H (46-116) U/L Troponin I (0.000-0.056) ng/mL Total Protein 5.8 L (6.4-8.2) g/dL Albumin 2.7 L (3.4-5.0) g/dL Globulin 3.1 (2.6-4.0) g/dL Albumin/Globulin Ratio 0.9 (0.9-1.6) Lipase (73-393) U/L Med Orders - Current: Current Medications Albuterol/Ipratropium (Duoneb 3.0-0.5 Mg/3 Ml) 3 ml NEB Q4HRRT PRN PRN Reason: Shortness Of Breath/wheezing Enoxaparin Sodium (Lovenox) 40 mg SUBCUT Q24H [facility] Last Admin: 01/12/20 19:40 Dose: 40 mg Hydromorphone HCl (Dilaudid) 1 mg IVPUSH Q4H PRN PRN Reason: Pain (severe 7-10) Last Admin: 01/13/20 06:40 Dose: 1 mg Lactated Ringer's (Ringers, Lactated) 1,000 mls @ 125 mls/hr IV ASDIRECTED MARIA T Last Admin: 01/13/20 04:26 Dose: 125 mls/hr Lidocaine HCl (Xylocaine 2% Viscous) 15 ml PO ASDIRECTED PRN PRN Reason: Agitation Ondansetron HCl (Zofran) 4 mg IVPUSH Q4H PRN PRN Reason: Nausea/Vomiting Last Admin: 01/12/20 21:43 Dose: 4 mg Pantoprazole Sodium (Protonix Iv) 40 mg IV Q12HR MARIA T Last Admin: 01/13/20 08:51 Dose: 40 mg Senna/Docusate Sodium (Senokot-S) 2 each PO BEDTIME [facility] Last Admin: 01/12/20 21:33 Dose: 2 each Discontinued Medications Hydromorphone HCl (Dilaudid) 0.5 - 1 mg IVPUSH Q1H PRN PRN Reason: Pain Last Admin: 01/12/20 16:27 Dose: 1 mg Hydromorphone HCl (Dilaudid) 0.5 mg IVPUSH ONETIME ONE Stop: 01/12/20 17:09 Last Admin: 01/12/20 17:55 Dose: 0.5 mg Sodium Chloride (Normal Saline) 1,000 mls @ 1,000 mls/hr IV .Bolus ONE Stop: 01/12/20 15:30 Last Admin: 01/12/20 18:27 Dose: Not Given Sodium Chloride (Normal Saline) 500 mls @ 1,000 mls/hr IV .Bolus ONE Stop: 01/12/20 15:01 Last Admin: 01/12/20 14:55 Dose: 1,000 mls/hr Sodium Chloride (Normal Saline) 1,000 mls @ 1,000 mls/hr IV .Bolus ONE Stop: 01/12/20 17:55 Last Admin: 01/12/20 18:39 Dose: 1,000 mls/hr Iopamidol (Isovue-370 (76%)) 100 ml IVPUSH ONETIME STA Stop: 01/12/20 16:06 Last Admin: 01/12/20 16:14 Dose: 100 ml Lorazepam (Ativan) 0.5 mg IVPUSH ONETIME ONE Stop: 01/12/20 17:09 Last Admin: 01/12/20 17:58 Dose: 0.5 mg Metoclopramide HCl (Reglan) 10 mg IVPUSH ONETIME ONE Stop: 01/12/20 15:31 Last Admin: 01/12/20 15:37 Dose: 10 mg Ondansetron HCl (Zofran) 4 mg IVPUSH ONETIME ONE Stop: 01/12/20 14:32 Last Admin: 01/12/20 18:27 Dose: Not Given Ondansetron HCl (Zofran) 8 mg IVPUSH ONETIME ONE Stop: 01/12/20 14:33 Last Admin: 01/12/20 14:50 Dose: 8 mg - Exam General: Alert, Oriented, Mild Distress Lungs: Normal Respiratory Effort Cardiovascular: Tachycardia (mild (around 100) ) GI/Abdominal Exam: Soft, Other (Greatly improved abdominal distension. Mild tenderness around the periumbilical area. This area is firm and likely due to matted peritoneal mets and small bowel in the area. This is improved from admission. NG with green output. ) Sepsis Event Note - Evaluation Sepsis Screening Result: No Definite Risk - Focused Exam Vital Signs: Vital Signs Temp Pulse Resp BP Pulse Ox 01/13/20 04:12 37.1 C 105 H 17 135/73 96 01/12/20 23:25 37.2 C 111 H 18 138/75 96 Date Exam was Performed: 01/13/20 Time Exam was Performed: 09:14 Consult PN Assessment/Plan Procedures: Procedures AGENT NOS ASSAY W/OPTIC (07/20/18) ASSAY OF AMYLASE (11/01/19) ASSAY OF CK (CPK) (12/30/18) ASSAY OF LACTIC ACID (11/01/19) ASSAY OF LIPASE (01/05/20) ASSAY OF MAGNESIUM (01/05/20) ASSAY OF NATRIURETIC PEPTIDE (01/22/19) ASSAY OF PARATHORMONE (07/20/18) ASSAY OF PHOSPHORUS (01/05/20) ASSAY OF PROTEIN URINE (04/05/18) ASSAY OF TROPONIN QUANT (05/21/19) ASSAY THYROID STIM HORMONE (03/01/19) BLOOD CULTURE FOR BACTERIA (01/22/19) C DIFF AMPLIFIED PROBE (01/05/20) CARCINOEMBRYONIC ANTIGEN (12/12/19) CHEMILUMINESCENT ASSAY (07/20/18) CHEMO IV INFUS EACH ADDL SEQ (09/20/19) CHEMO IV INFUSION 1 HR (09/20/19) CHEMO IV INFUSION ADDL HR (09/20/19) CHEMO IV PUSH ADDL DRUG (04/04/19) CHEMO PROLONG INFUSE W/PUMP (04/04/19) CHEST X-RAY 1 VIEW FRONTAL (08/27/17) CLOSTRIDIUM AG IA (01/05/20) COMPLETE CBC W/AUTO DIFF WBC (01/05/20) COMPREHEN METABOLIC PANEL (01/05/20) CRITICAL CARE ADDL 30 MIN (05/21/19) CRITICAL CARE FIRST HOUR (05/21/19) CT ABD & PELV 1/> REGNS (07/20/18) CT ABD & PELV W/CONTRAST (11/20/19) CT ABD & PELVIS W/O CONTRAST (01/05/20) CT ANGIOGRAPHY CHEST (05/21/19) CT HEAD/BRAIN W/O DYE (03/24/19) CT THORAX W/DYE (11/30/19) CULTURE SCREEN ONLY (08/27/17) DRAW BLOOD OFF VENOUS DEVICE (12/12/19) ECHO EXAM OF ABDOMEN (07/20/18) ELECTROCARDIOGRAM TRACING (11/20/19) EMERGENCY DEPT VISIT (01/05/20) EMERGENCY DEPT VISIT (05/29/19) EMERGENCY DEPT VISIT (03/01/19) EMERGENCY DEPT VISIT (08/27/17) EMERGENCY DEPT VISIT (08/06/17) EMERGENCY DEPT VISIT (08/02/17) EMERGENCY DEPT VISIT (04/08/17) EMERGENCY DEPT VISIT (02/02/16) EMERGENCY DEPT VISIT (12/26/15) EMERGENCY DEPT VISIT (12/26/14) EMERGENCY DEPT VISIT (12/02/14) EMERGENCY DEPT VISIT (09/15/14) EMERGENCY DEPT VISIT (05/12/14) EMERGENCY DEPT VISIT (05/12/14) EMERGENCY DEPT VISIT (05/09/14) EMERGENCY DEPT VISIT (05/09/14) EVALUATE PT USE OF INHALER (04/08/17) EXTREMITY STUDY (07/20/18) FIBRIN DEGRADATION QUANT (04/08/17) GLUCOSE BLOOD TEST (01/05/20) GLYCOSYLATED HEMOGLOBIN TEST (01/01/15) HYDRATE IV INFUSION ADD-ON (01/05/20) HYDRATION IV INFUSION INIT (08/27/17) IIV4 VACC NO PRSV 0.5 ML IM (07/04/19) IMMUNIZATION ADMIN (07/04/19) INSERTION OF CHEST TUBE (05/21/19) IRRIG DRUG DELIVERY DEVICE (12/12/19) LIPID PANEL (01/01/15) METABOLIC PANEL TOTAL CA (01/05/20) PROTHROMBIN TIME (05/21/19) ROUTINE VENIPUNCTURE (01/05/20) STOOL CULTR AEROBIC BACT EA (07/20/18) STREP A ASSAY W/OPTIC (08/27/17) TDAP VACCINE 7 YRS/> IM (02/02/16) THER/DIAG CONCURRENT INF (01/17/19) THER/PROPH/DIAG INJ IV PUSH (01/05/20) THER/PROPH/DIAG INJ SC/IM (04/05/18) THER/PROPH/DIAG IV INF ADDON (03/01/19) THER/PROPH/DIAG IV INF INIT (08/15/19) TTE W/DOPPLER COMPLETE (04/10/19) TX/PRO/DX INJ NEW DRUG ADDON (01/05/20) TX/PRO/DX INJ SAME DRUG MATE SHIP (01/05/20) TX/PROPH/DG ADDL SEQ IV INF (07/04/19) UR ALBUMIN SEMIQUANTITATIVE (01/01/15) URINALYSIS AUTO W/O SCOPE (01/05/20) URINALYSIS AUTO W/SCOPE (11/20/19) URINALYSIS NONAUTO W/SCOPE (07/03/14) URINE BACTERIA CULTURE (12/02/14) URINE CULTURE/COLONY COUNT (11/01/19) US EXAM ABDOM COMPLETE (03/11/18) VITAMIN D 25 HYDROXY (07/20/18) X-RAY EXAM ABDOMEN 1 VIEW (05/29/19) X-RAY EXAM ABDOMEN 2 VIEWS (11/01/19) X-RAY EXAM CHEST 1 VIEW (05/21/19) X-RAY EXAM OF ABDOMEN (08/06/17) X-RAY EXAM OF ANKLE (08/02/17) X-RAY EXAM OF FOOT (08/02/17) X-RAY EXAM OF FOOT (12/26/14) X-RAY EXAM OF KNEE 3 (10/30/17) X-RAY EXAM OF LOWER LEG (02/02/16) (1) Small bowel obstruction SNOMED Code(s): 660319457 Code(s): K56.609 - UNSP INTESTNL OBST, UNSP TO PARTIAL VERSUS COMPLETE OBST Current Visit: Yes Problem List Initiated/Reviewed/Updated: Yes Plan: Patient has improved overnight. Labs are stable to improved this am. Distension and abdominal tenderness is much better on physical exam. Continue current treatments for now (strict npo, IVF resuscitation, strict I and O monitoring). The patient and I discussed the role of palliative surgery with SBO associated with stage IV disease. I explained that it is a possibility if this does not resolve on its own and would be worth a discussion with an experienced surgeon regarding the risks and benefits. This would require transfer and she understands this. At this point she is improving and it is worth ongoing monitoring here for now.
[2020-01-13] MEDS: Ondansetron 4 MG/2 ML SDV IVPUSH PRN ×3 (09:34→18:08)
--- NOTE | 2020-01-13 10:52 | PCM.PN ---
- General Info Date of Service: 01/13/20 Admission Dx/Problem (Free Text): Admission Diagnosis/Problem Admission Diagnosis/Problem Small bowel obstruction Subjective Update: seen at bedside, c/o nose pain and abdominal cramps - Review of Systems General: Reports: Weakness, Fatigue. Denies: Fever Pulmonary: Denies: Shortness of Breath, Pleuritic Chest Pain, Cough Cardiovascular: Reports: Dyspnea on Exertion. Denies: Chest Pain, Palpitations Gastrointestinal: Reports: Abdominal Pain, Difficulty Swallowing, Nausea. Denies: Diarrhea, Flatus, Vomiting Genitourinary: Denies: Dysuria, Frequency, Burning Musculoskeletal: Denies: Neck Pain, Shoulder Pain, Arm Pain Skin: Denies: Cyanosis, Jaundice, Mottled Neurological: Denies: Confusion, Dizziness, Headache - Patient Data Vitals - Most Recent: Last Vital Signs Temp 37.1 C 01/13/20 04:12 Pulse 105 H 01/13/20 04:12 Resp 17 01/13/20 04:12 BP 135/73 01/13/20 04:12 Pulse Ox 96 01/13/20 04:12 Weight - Most Recent: 160 kg I&O - Last 24 Hours: Intake & Output 01/12/20 01/13/20 01/13/20 22:59 06:59 14:59 Intake Total 1000 1010 Output Total 2000 Balance 1000 -990 Lab Results Last 24 Hours: Laboratory Results - last 24 hr 01/12/20 01/12/20 01/12/20 Range/Units 14:15 14:15 14:15 WBC 8.04 (4.0-11.0) K/uL RBC 4.24 L (4.30-5.90) M/uL Hgb 12.8 (12.0-16.0) g/dL Hct 38.6 (36.0-46.0) % MCV 91.0 (80.0-98.0) fL MCH 30.2 (27.0-32.0) pg MCHC 33.2 (31.0-37.0) g/dL RDW Std Deviation 53.7 (28.0-62.0) fl RDW Coeff of Ej 16 H (11.0-15.0) % Plt Count 205 (150-400) K/uL MPV 9.00 (7.40-12.00) fL Neut % (Auto) 70.1 (48.0-80.0) % Lymph % (Auto) 16.4 (16.0-40.0) % Wells % (Auto) 12.9 (0.0-15.0) % Eos % (Auto) 0.4 (0.0-7.0) % Baso % (Auto) 0.2 (0.0-1.5) % Neut # (Auto) 5.6 (1.4-5.7) K/uL Lymph # (Auto) 1.3 (0.6-2.4) K/uL Wells # (Auto) 1.0 H (0.0-0.8) K/uL Eos # (Auto) 0.0 (0.0-0.7) K/uL Baso # (Auto) 0.0 (0.0-0.1) K/uL Nucleated RBC % 0.0 /100WBC Nucleated RBCs # 0 K/uL D-Dimer, Quantitative 5.74 H (0.0-0.50) mg/L FEU Lactate (0.20-2.00) mmol/L Sodium 138 (136-145) mmol/L Potassium 3.8 (3.5-5.1) mmol/L Chloride 101 (98-107) mmol/L Carbon Dioxide 24.9 (21.0-32.0) mmol/L BUN 12 (7.0-18.0) mg/dL Creatinine 1.0 (0.6-1.0) mg/dL Est Cr Clr Drug Dosing 48.50 mL/min Estimated GFR (MDRD) 56.9 ml/min Glucose 175 H (74-106) mg/dL POC Glucose (60-110) mg/dL Calcium 8.0 L (8.5-10.1) mg/dL Phosphorus (2.6-4.7) mg/dL Magnesium (1.8-2.4) mg/dL Total Bilirubin 1.8 H (0.2-1.0) mg/dL AST 30 (15-37) IU/L ALT 19 (14-63) IU/L Alkaline Phosphatase 214 H (46-116) U/L Troponin I < 0.050 (0.000-0.056) ng/mL Total Protein 6.5 (6.4-8.2) g/dL Albumin 3.1 L (3.4-5.0) g/dL Globulin 3.4 (2.6-4.0) g/dL Albumin/Globulin Ratio 0.9 (0.9-1.6) Lipase 38 L (73-393) U/L 01/12/20 01/12/20 01/13/20 Range/Units 19:20 23:20 06:05 WBC 8.41 (4.0-11.0) K/uL RBC 4.11 L (4.30-5.90) M/uL Hgb 12.4 (12.0-16.0) g/dL Hct 37.7 (36.0-46.0) % MCV 91.7 (80.0-98.0) fL MCH 30.2 (27.0-32.0) pg MCHC 32.9 (31.0-37.0) g/dL RDW Std Deviation 54.7 (28.0-62.0) fl RDW Coeff of Ej 16 H (11.0-15.0) % Plt Count 220 (150-400) K/uL MPV 9.30 (7.40-12.00) fL Neut % (Auto) 60.3 (48.0-80.0) % Lymph % (Auto) 24.7 (16.0-40.0) % Wells % (Auto) 14.0 (0.0-15.0) % Eos % (Auto) 0.8 (0.0-7.0) % Baso % (Auto) 0.2 (0.0-1.5) % Neut # (Auto) 5.1 (1.4-5.7) K/uL Lymph # (Auto) 2.1 (0.6-2.4) K/uL Wells # (Auto) 1.2 H (0.0-0.8) K/uL Eos # (Auto) 0.1 (0.0-0.7) K/uL Baso # (Auto) 0.0 (0.0-0.1) K/uL Nucleated RBC % 0.0 /100WBC Nucleated RBCs # 0 K/uL D-Dimer, Quantitative (0.0-0.50) mg/L FEU Lactate 1.1 (0.20-2.00) mmol/L Sodium (136-145) mmol/L Potassium (3.5-5.1) mmol/L Chloride (98-107) mmol/L Carbon Dioxide (21.0-32.0) mmol/L BUN (7.0-18.0) mg/dL Creatinine (0.6-1.0) mg/dL Est Cr Clr Drug Dosing mL/min Estimated GFR (MDRD) ml/min Glucose (74-106) mg/dL POC Glucose 141 H (60-110) mg/dL Calcium (8.5-10.1) mg/dL Phosphorus (2.6-4.7) mg/dL Magnesium (1.8-2.4) mg/dL Total Bilirubin (0.2-1.0) mg/dL AST (15-37) IU/L ALT (14-63) IU/L Alkaline Phosphatase (46-116) U/L Troponin I (0.000-0.056) ng/mL Total Protein (6.4-8.2) g/dL Albumin (3.4-5.0) g/dL Globulin (2.6-4.0) g/dL Albumin/Globulin Ratio (0.9-1.6) Lipase (73-393) U/L 01/13/20 Range/Units 06:05 WBC (4.0-11.0) K/uL RBC (4.30-5.90) M/uL Hgb (12.0-16.0) g/dL Hct (36.0-46.0) % MCV (80.0-98.0) fL MCH (27.0-32.0) pg MCHC (31.0-37.0) g/dL RDW Std Deviation (28.0-62.0) fl RDW Coeff of Ej (11.0-15.0) % Plt Count (150-400) K/uL MPV (7.40-12.00) fL Neut % (Auto) (48.0-80.0) % Lymph % (Auto) (16.0-40.0) % Wells % (Auto) (0.0-15.0) % Eos % (Auto) (0.0-7.0) % Baso % (Auto) (0.0-1.5) % Neut # (Auto) (1.4-5.7) K/uL Lymph # (Auto) (0.6-2.4) K/uL Wells # (Auto) (0.0-0.8) K/uL Eos # (Auto) (0.0-0.7) K/uL Baso # (Auto) (0.0-0.1) K/uL Nucleated RBC % /100WBC Nucleated RBCs # K/uL D-Dimer, Quantitative (0.0-0.50) mg/L FEU Lactate (0.20-2.00) mmol/L Sodium 140 (136-145) mmol/L Potassium 3.5 (3.5-5.1) mmol/L Chloride 103 (98-107) mmol/L Carbon Dioxide 22.4 (21.0-32.0) mmol/L BUN 9 (7.0-18.0) mg/dL Creatinine 0.9 (0.6-1.0) mg/dL Est Cr Clr Drug Dosing 53.89 mL/min Estimated GFR (MDRD) > 60.0 ml/min Glucose 133 H (74-106) mg/dL POC Glucose (60-110) mg/dL Calcium 7.6 L (8.5-10.1) mg/dL Phosphorus 2.2 L (2.6-4.7) mg/dL Magnesium 1.5 L (1.8-2.4) mg/dL Total Bilirubin 1.4 H (0.2-1.0) mg/dL AST 24 (15-37) IU/L ALT 14 (14-63) IU/L Alkaline Phosphatase 180 H (46-116) U/L Troponin I (0.000-0.056) ng/mL Total Protein 5.8 L (6.4-8.2) g/dL Albumin 2.7 L (3.4-5.0) g/dL Globulin 3.1 (2.6-4.0) g/dL Albumin/Globulin Ratio 0.9 (0.9-1.6) Lipase (73-393) U/L Med Orders - Current: Current Medications Albuterol/Ipratropium (Duoneb 3.0-0.5 Mg/3 Ml) 3 ml NEB Q4HRRT PRN PRN Reason: Shortness Of Breath/wheezing Enoxaparin Sodium (Lovenox) 40 mg SUBCUT Q24H [facility] Last Admin: 01/12/20 19:40 Dose: 40 mg Hydromorphone HCl (Dilaudid) 1 mg IVPUSH Q4H PRN PRN Reason: Pain (severe 7-10) Last Admin: 01/13/20 06:40 Dose: 1 mg Lactated Ringer's (Ringers, Lactated) 1,000 mls @ 125 mls/hr IV ASDIRECTED MARIA T Last Admin: 01/13/20 04:26 Dose: 125 mls/hr Lidocaine HCl (Xylocaine 2% Viscous) 15 ml PO ASDIRECTED PRN PRN Reason: Agitation Ondansetron HCl (Zofran) 4 mg IVPUSH Q4H PRN PRN Reason: Nausea/Vomiting Last Admin: 01/13/20 09:34 Dose: 4 mg Pantoprazole Sodium (Protonix Iv) 40 mg IV Q12HR [facility] Last Admin: 01/13/20 08:51 Dose: 40 mg Senna/Docusate Sodium (Senokot-S) 2 each PO BEDTIME [facility] Last Admin: 01/12/20 21:33 Dose: 2 each Discontinued Medications Hydromorphone HCl (Dilaudid) 0.5 - 1 mg IVPUSH Q1H PRN PRN Reason: Pain Last Admin: 01/12/20 16:27 Dose: 1 mg Hydromorphone HCl (Dilaudid) 0.5 mg IVPUSH ONETIME ONE Stop: 01/12/20 17:09 Last Admin: 01/12/20 17:55 Dose: 0.5 mg Sodium Chloride (Normal Saline) 1,000 mls @ 1,000 mls/hr IV .Bolus ONE Stop: 01/12/20 15:30 Last Admin: 01/12/20 18:27 Dose: Not Given Sodium Chloride (Normal Saline) 500 mls @ 1,000 mls/hr IV .Bolus ONE Stop: 01/12/20 15:01 Last Admin: 01/12/20 14:55 Dose: 1,000 mls/hr Sodium Chloride (Normal Saline) 1,000 mls @ 1,000 mls/hr IV .Bolus ONE Stop: 01/12/20 17:55 Last Admin: 01/12/20 18:39 Dose: 1,000 mls/hr Iopamidol (Isovue-370 (76%)) 100 ml IVPUSH ONETIME STA Stop: 01/12/20 16:06 Last Admin: 01/12/20 16:14 Dose: 100 ml Lorazepam (Ativan) 0.5 mg IVPUSH ONETIME ONE Stop: 01/12/20 17:09 Last Admin: 01/12/20 17:58 Dose: 0.5 mg Metoclopramide HCl (Reglan) 10 mg IVPUSH ONETIME ONE Stop: 01/12/20 15:31 Last Admin: 01/12/20 15:37 Dose: 10 mg Ondansetron HCl (Zofran) 4 mg IVPUSH ONETIME ONE Stop: 01/12/20 14:32 Last Admin: 01/12/20 18:27 Dose: Not Given Ondansetron HCl (Zofran) 8 mg IVPUSH ONETIME ONE Stop: 01/12/20 14:33 Last Admin: 01/12/20 14:50 Dose: 8 mg - Exam General: Alert, Oriented, Moderate Distress Neck: Supple, Trachea Midline Lungs: Clear to Auscultation, Decreased Breath Sounds Cardiovascular: Regular Rate, Regular Rhythm GI/Abdominal Exam: Distended, Tender, Abnormal Bowel Sounds. No: Normal Bowel Sounds, Soft Sepsis Event Note - Evaluation Sepsis Screening Result: No Definite Risk - Focused Exam Vital Signs: Vital Signs Temp Pulse Resp BP Pulse Ox 01/13/20 04:12 37.1 C 105 H 17 135/73 96 01/12/20 23:25 37.2 C 111 H 18 138/75 96 Date Exam was Performed: 01/13/20 Time Exam was Performed: 10:52 - Problem List & Annotations (1) Small bowel obstruction SNOMED Code(s): 733009076 Code(s): K56.609 - UNSP INTESTNL OBST, UNSP TO PARTIAL VERSUS COMPLETE OBST Status: Acute Current Visit: Yes (2) Abdominal pain SNOMED Code(s): 77265258 Code(s): R10.9 - UNSPECIFIED ABDOMINAL PAIN Status: Acute Current Visit: No Qualifiers: Abdominal location: generalized Qualified Code(s): R10.84 - Generalized abdominal pain (3) Metastatic colon cancer in female SNOMED Code(s): 453156935, 431683936 Code(s): C18.9 - MALIGNANT NEOPLASM OF COLON, UNSPECIFIED Status: Acute Priority: High Current Visit: No (4) Diabetes type 2, controlled SNOMED Code(s): 74131379, 897198067 Code(s): E11.9 - TYPE 2 DIABETES MELLITUS WITHOUT COMPLICATIONS Status: Chronic Priority: High Current Visit: No Qualifiers: Diabetes mellitus ocean transportation intermediary insulin use: without group home use Diabetes mellitus complication status: without complication Qualified Code(s): E11.9 - Type 2 diabetes mellitus without complications (5) Hypertension SNOMED Code(s): 88431244 Code(s): I10 - ESSENTIAL (PRIMARY) HYPERTENSION Status: Chronic Current Visit: No Qualifiers: Hypertension type: unspecified Qualified Code(s): I10 - Essential (primary ) hypertension (6) Pacemaker SNOMED Code(s): 992801135 Code(s): Z95.0 - PRESENCE OF CARDIAC PACEMAKER Status: Chronic Current Visit: No (7) Hypomagnesemia SNOMED Code(s): 629693886 Code(s): E83.42 - HYPOMAGNESEMIA Status: Acute Current Visit: Yes - Problem List Review Problem List Initiated/Reviewed/Updated: Yes - My Orders Last 24 Hours: My Active Orders 01/12/20 18:34 Ambulate [RC] ASDIRECTED Oxygen Therapy [RC] PRN VTE/DVT Education [RC] PER UNIT ROUTINE Vital Signs [RC] Q4H Albuterol/Ipratropium [DuoNeb 3.0-0.5 MG/3 ML] 3 ml NEB Q4HRRT PRN HYDROmorphone [Dilaudid] 1 mg IVPUSH Q4H PRN Ondansetron [Zofran] 4 mg IVPUSH Q4H PRN 01/12/20 18:39 Pulse Oximetry [RC] PRN 01/12/20 18:42 RT Aerosol Therapy [RC] ASDIRECTED 01/12/20 18:45 Enoxaparin [Lovenox] 40 mg SUBCUT Q24H Lactated Ringers [Ringers, Lactated] 1,000 ml IV ASDIRECTED 01/12/20 21:00 Docusate Sodium/Sennosides [Senokot-S] 2 each PO BEDTIME Pantoprazole [ProTONIX IV] 40 mg IV Q12HR 04/10/20 21:37 Resuscitation Status Routine 01/12/20 Dinner Nothing per Oral Now Diet [DIET] 01/13/20 00:11 Accu Check [Blood Glucose Check, Bedside] [RC] QIDACANDBED - Plan Plan:: 59 y/o F admitted for SBO, NG tube in place Keep NPO, LFTs trending down cont IV fluids LR@ 125cc/hr Dilaudid for pain control PPI daily cont NG tube on intermittent suction cont Bowel regimen Surgery on board, appreciate recommendations, will monitor for another day, if palliative surgery is required will need to be transferred cont to monitor closely Lovenox for DVT ppx replete magnesium
[2020-01-13] MEDS ORDERED: Magnesium Sulfate/Water 2 GM in Premix Bag 1 BAG IV ONE (10:53)
[2020-01-13] MEDS ORDERED: Potassium Phosphates 15 MMOLE in Sodium Chloride 0.9% 250 ML IV ONE ×2 (11:30)
[2020-01-13] MEDS: Enoxaparin 40 MG/0.4 ML Syringe SUBCUT SCH (18:08)
[2020-01-13] MEDS: Docusate Sodium/Sennosides Tab PO SCH (21:31)
[2020-01-14] MEDS: Ondansetron 4 MG/2 ML SDV IVPUSH PRN ×3 (00:02→17:30)
[2020-01-14] MEDS: LORazepam 2 MG/ML SDV IVPUSH PRN ×2 (02:23→11:56)
[2020-01-14] MEDS: HYDROmorphone 2 MG/ML Syringe IVPUSH PRN ×5 (04:13→21:46)
[2020-01-14] MEDS: Lactated Ringers 1,000 ML IV SCH ×3 (04:13→19:02)
[2020-01-14 06:29] LABS: BLOOD UREA NITROGEN,BUN 7 mg/dL (7.0-18.0); CARBON DIOXIDE,CO2 23.7 mmol/L (21.0-32.0); CHLORIDE,CL 106 mmol/L (98-107); GLUCOSE RANDOM 121 mg/dL (74-106); POTASSIUM,K 3.6 mmol/L (3.5-5.1); SODIUM,NA 142 mmol/L (136-145)
[2020-01-14] MEDS: Pantoprazole 40 MG Vial IV SCH ×2 (08:35→19:59)
--- NOTE | 2020-01-14 09:11 | PCM.CONSN ---
- General Info Date of Service: 01/14/20 Functional Status: Reports: Pain Controlled, Other (NG output decreased significantly. Only 50ml out in 12 hours. NG output also clear to slightly green tinged. Abdomen feels better. Passing gas and had a BM yesterday. ) - Review of Systems General: Reports: No Symptoms HEENT: Reports: Sore Throat Pulmonary: Reports: No Symptoms Cardiovascular: Reports: No Symptoms Gastrointestinal: Reports: No Symptoms - Patient Data Vitals - Most Recent: Last Vital Signs Temp 36.6 C 01/14/20 08:00 Pulse 100 01/14/20 08:00 Resp 12 01/14/20 08:00 BP 142/84 H 01/14/20 08:00 Pulse Ox 96 01/14/20 08:00 Weight - Most Recent: 160 kg I&O - Last 24 Hours: Intake & Output 01/13/20 01/14/20 01/14/20 22:59 06:59 14:59 Intake Total 1300 1443 10 Output Total 850 250 Balance 450 1193 10 Lab Results Last 24 Hours: Laboratory Results - last 24 hr 01/13/20 01/13/20 01/14/20 Range/Units 06:34 17:28 02:53 WBC (4.0-11.0) K/uL RBC (4.30-5.90) M/uL Hgb (12.0-16.0) g/dL Hct (36.0-46.0) % MCV (80.0-98.0) fL MCH (27.0-32.0) pg MCHC (31.0-37.0) g/dL RDW Std Deviation (28.0-62.0) fl RDW Coeff of Ej (11.0-15.0) % Plt Count (150-400) K/uL MPV (7.40-12.00) fL Neut % (Auto) (48.0-80.0) % Lymph % (Auto) (16.0-40.0) % Tripp % (Auto) (0.0-15.0) % Eos % (Auto) (0.0-7.0) % Baso % (Auto) (0.0-1.5) % Neut # (Auto) (1.4-5.7) K/uL Lymph # (Auto) (0.6-2.4) K/uL Tripp # (Auto) (0.0-0.8) K/uL Eos # (Auto) (0.0-0.7) K/uL Baso # (Auto) (0.0-0.1) K/uL Nucleated RBC % /100WBC Nucleated RBCs # K/uL Sodium (136-145) mmol/L Potassium (3.5-5.1) mmol/L Chloride (98-107) mmol/L Carbon Dioxide (21.0-32.0) mmol/L BUN (7.0-18.0) mg/dL Creatinine (0.6-1.0) mg/dL Est Cr Clr Drug Dosing mL/min Estimated GFR (MDRD) ml/min Glucose (74-106) mg/dL POC Glucose 128 H 121 H 113 H (60-110) mg/dL Calcium (8.5-10.1) mg/dL Phosphorus (2.6-4.7) mg/dL Magnesium (1.8-2.4) mg/dL Total Bilirubin (0.2-1.0) mg/dL AST (15-37) IU/L ALT (14-63) IU/L Alkaline Phosphatase (46-116) U/L Total Protein (6.4-8.2) g/dL Albumin (3.4-5.0) g/dL Globulin (2.6-4.0) g/dL Albumin/Globulin Ratio (0.9-1.6) 01/14/20 01/14/20 01/14/20 Range/Units 06:00 06:00 06:54 WBC 8.77 (4.0-11.0) K/uL RBC 3.83 L (4.30-5.90) M/uL Hgb 11.2 L (12.0-16.0) g/dL Hct 35.5 L (36.0-46.0) % MCV 92.7 (80.0-98.0) fL MCH 29.2 (27.0-32.0) pg MCHC 31.5 (31.0-37.0) g/dL RDW Std Deviation 56.1 (28.0-62.0) fl RDW Coeff of Ej 17 H (11.0-15.0) % Plt Count 158 (150-400) K/uL MPV 9.00 (7.40-12.00) fL Neut % (Auto) 73.8 (48.0-80.0) % Lymph % (Auto) 15.5 L (16.0-40.0) % Tripp % (Auto) 9.5 (0.0-15.0) % Eos % (Auto) 1.0 (0.0-7.0) % Baso % (Auto) 0.2 (0.0-1.5) % Neut # (Auto) 6.5 H (1.4-5.7) K/uL Lymph # (Auto) 1.4 (0.6-2.4) K/uL Tripp # (Auto) 0.8 (0.0-0.8) K/uL Eos # (Auto) 0.1 (0.0-0.7) K/uL Baso # (Auto) 0.0 (0.0-0.1) K/uL Nucleated RBC % 0.0 /100WBC Nucleated RBCs # 0 K/uL Sodium 142 (136-145) mmol/L Potassium 3.6 (3.5-5.1) mmol/L Chloride 106 (98-107) mmol/L Carbon Dioxide 23.7 (21.0-32.0) mmol/L BUN 7 (7.0-18.0) mg/dL Creatinine 0.8 (0.6-1.0) mg/dL Est Cr Clr Drug Dosing 60.62 mL/min Estimated GFR (MDRD) > 60.0 ml/min Glucose 121 H (74-106) mg/dL POC Glucose 110 (60-110) mg/dL Calcium 7.3 L (8.5-10.1) mg/dL Phosphorus 2.2 L (2.6-4.7) mg/dL Magnesium 1.8 (1.8-2.4) mg/dL Total Bilirubin 1.1 H (0.2-1.0) mg/dL AST 19 (15-37) IU/L ALT 14 (14-63) IU/L Alkaline Phosphatase 149 H (46-116) U/L Total Protein 5.2 L (6.4-8.2) g/dL Albumin 2.3 L (3.4-5.0) g/dL Globulin 2.9 (2.6-4.0) g/dL Albumin/Globulin Ratio 0.8 L (0.9-1.6) Med Orders - Current: Current Medications Albuterol/Ipratropium (Duoneb 3.0-0.5 Mg/3 Ml) 3 ml NEB Q4HRRT PRN PRN Reason: Shortness Of Breath/wheezing Enoxaparin Sodium (Lovenox) 40 mg SUBCUT Q24H [facility] Last Admin: 01/13/20 18:08 Dose: 40 mg Hydromorphone HCl (Dilaudid) 1 mg IVPUSH Q4H PRN PRN Reason: Pain (severe 7-10) Last Admin: 01/14/20 08:27 Dose: 1 mg Lactated Ringer's (Ringers, Lactated) 1,000 mls @ 125 mls/hr IV ASDIRECTED MARIA T Last Admin: 01/14/20 04:13 Dose: 125 mls/hr Lidocaine HCl (Xylocaine 2% Viscous) 15 ml PO ASDIRECTED PRN PRN Reason: Agitation Last Admin: 01/13/20 19:47 Dose: 15 ml Lorazepam (Ativan) 1 mg IVPUSH Q6H PRN PRN Reason: Anxiety Last Admin: 01/14/20 02:23 Dose: 1 mg Ondansetron HCl (Zofran) 4 mg IVPUSH Q4H PRN PRN Reason: Nausea/Vomiting Last Admin: 01/14/20 00:02 Dose: 4 mg Pantoprazole Sodium (Protonix Iv) 40 mg IV Q12HR [facility] Last Admin: 01/14/20 08:35 Dose: 40 mg Senna/Docusate Sodium (Senokot-S) 2 each PO BEDTIME [facility] Last Admin: 01/13/20 21:31 Dose: Not Given Discontinued Medications Hydromorphone HCl (Dilaudid) 0.5 - 1 mg IVPUSH Q1H PRN PRN Reason: Pain Last Admin: 01/12/20 16:27 Dose: 1 mg Hydromorphone HCl (Dilaudid) 0.5 mg IVPUSH ONETIME ONE Stop: 01/12/20 17:09 Last Admin: 01/12/20 17:55 Dose: 0.5 mg Sodium Chloride (Normal Saline) 1,000 mls @ 1,000 mls/hr IV .Bolus ONE Stop: 01/12/20 15:30 Last Admin: 01/12/20 18:27 Dose: Not Given Sodium Chloride (Normal Saline) 500 mls @ 1,000 mls/hr IV .Bolus ONE Stop: 01/12/20 15:01 Last Admin: 01/12/20 14:55 Dose: 1,000 mls/hr Sodium Chloride (Normal Saline) 1,000 mls @ 1,000 mls/hr IV .Bolus ONE Stop: 01/12/20 17:55 Last Admin: 01/12/20 18:39 Dose: 1,000 mls/hr Magnesium Sulfate 2 gm/ Premix 50 mls @ 50 mls/hr IV ONETIME ONE Stop: 01/13/20 11:52 Last Admin: 01/13/20 11:22 Dose: 50 mls/hr Potassium Phosphate 15 mmole/ (Sodium Chloride) 255 mls @ 63.75 mls/hr IV NOW ONE Stop: 01/13/20 15:29 Last Admin: 01/13/20 13:01 Dose: 63.75 mls/hr Iopamidol (Isovue-370 (76%)) 100 ml IVPUSH ONETIME STA Stop: 01/12/20 16:06 Last Admin: 01/12/20 16:14 Dose: 100 ml Lorazepam (Ativan) 0.5 mg IVPUSH ONETIME ONE Stop: 01/12/20 17:09 Last Admin: 01/12/20 17:58 Dose: 0.5 mg Metoclopramide HCl (Reglan) 10 mg IVPUSH ONETIME ONE Stop: 01/12/20 15:31 Last Admin: 01/12/20 15:37 Dose: 10 mg Ondansetron HCl (Zofran) 4 mg IVPUSH ONETIME ONE Stop: 01/12/20 14:32 Last Admin: 01/12/20 18:27 Dose: Not Given Ondansetron HCl (Zofran) 8 mg IVPUSH ONETIME ONE Stop: 01/12/20 14:33 Last Admin: 01/12/20 14:50 Dose: 8 mg - Exam General: Alert, Oriented Lungs: Normal Respiratory Effort Cardiovascular: Regular Rate GI/Abdominal Exam: Soft, Non-Tender, No Distention, No Mass Sepsis Event Note - Evaluation Sepsis Screening Result: No Definite Risk - Focused Exam Vital Signs: Vital Signs Temp Pulse Resp BP BP Pulse Ox 01/14/20 08:00 36.6 C 100 12 142/84 H 96 01/14/20 04:16 36.8 C 102 H 18 162/81 H 96 01/13/20 23:58 37.2 C 104 H 18 140/74 96 Date Exam was Performed: 01/14/20 Time Exam was Performed: 09:07 Consult PN Assessment/Plan Procedures: Procedures AGENT NOS ASSAY W/OPTIC (07/20/18) ASSAY OF AMYLASE (11/01/19) ASSAY OF CK (CPK) (12/30/18) ASSAY OF LACTIC ACID (11/01/19) ASSAY OF LIPASE (01/05/20) ASSAY OF MAGNESIUM (01/05/20) ASSAY OF NATRIURETIC PEPTIDE (01/22/19) ASSAY OF PARATHORMONE (07/20/18) ASSAY OF PHOSPHORUS (01/05/20) ASSAY OF PROTEIN URINE (04/05/18) ASSAY OF TROPONIN QUANT (05/21/19) ASSAY THYROID STIM HORMONE (03/01/19) BLOOD CULTURE FOR BACTERIA (01/22/19) C DIFF AMPLIFIED PROBE (01/05/20) CARCINOEMBRYONIC ANTIGEN (12/12/19) CHEMILUMINESCENT ASSAY (07/20/18) CHEMO IV INFUS EACH ADDL SEQ (09/20/19) CHEMO IV INFUSION 1 HR (09/20/19) CHEMO IV INFUSION ADDL HR (09/20/19) CHEMO IV PUSH ADDL DRUG (04/04/19) CHEMO PROLONG INFUSE W/PUMP (04/04/19) CHEST X-RAY 1 VIEW FRONTAL (08/27/17) CLOSTRIDIUM AG IA (01/05/20) COMPLETE CBC W/AUTO DIFF WBC (01/05/20) COMPREHEN METABOLIC PANEL (01/05/20) CRITICAL CARE ADDL 30 MIN (05/21/19) CRITICAL CARE FIRST HOUR (05/21/19) CT ABD & PELV 1/> REGNS (07/20/18) CT ABD & PELV W/CONTRAST (11/20/19) CT ABD & PELVIS W/O CONTRAST (01/05/20) CT ANGIOGRAPHY CHEST (05/21/19) CT HEAD/BRAIN W/O DYE (03/24/19) CT THORAX W/DYE (11/30/19) CULTURE SCREEN ONLY (08/27/17) DRAW BLOOD OFF VENOUS DEVICE (12/12/19) ECHO EXAM OF ABDOMEN (07/20/18) ELECTROCARDIOGRAM TRACING (11/20/19) EMERGENCY DEPT VISIT (01/05/20) EMERGENCY DEPT VISIT (05/29/19) EMERGENCY DEPT VISIT (03/01/19) EMERGENCY DEPT VISIT (08/27/17) EMERGENCY DEPT VISIT (08/06/17) EMERGENCY DEPT VISIT (08/02/17) EMERGENCY DEPT VISIT (04/08/17) EMERGENCY DEPT VISIT (02/02/16) EMERGENCY DEPT VISIT (12/26/15) EMERGENCY DEPT VISIT (12/26/14) EMERGENCY DEPT VISIT (12/02/14) EMERGENCY DEPT VISIT (09/15/14) EMERGENCY DEPT VISIT (05/12/14) EMERGENCY DEPT VISIT (05/12/14) EMERGENCY DEPT VISIT (05/09/14) EMERGENCY DEPT VISIT (05/09/14) EVALUATE PT USE OF INHALER (04/08/17) EXTREMITY STUDY (07/20/18) FIBRIN DEGRADATION QUANT (04/08/17) GLUCOSE BLOOD TEST (01/05/20) GLYCOSYLATED HEMOGLOBIN TEST (01/01/15) HYDRATE IV INFUSION ADD-ON (01/05/20) HYDRATION IV INFUSION INIT (08/27/17) IIV4 VACC NO PRSV 0.5 ML IM (07/04/19) IMMUNIZATION ADMIN (07/04/19) INSERTION OF CHEST TUBE (05/21/19) IRRIG DRUG DELIVERY DEVICE (12/12/19) LIPID PANEL (01/01/15) METABOLIC PANEL TOTAL CA (01/05/20) PROTHROMBIN TIME (05/21/19) ROUTINE VENIPUNCTURE (01/05/20) STOOL CULTR AEROBIC BACT EA (07/20/18) STREP A ASSAY W/OPTIC (08/27/17) TDAP VACCINE 7 YRS/> IM (02/02/16) THER/DIAG CONCURRENT INF (01/17/19) THER/PROPH/DIAG INJ IV PUSH (01/05/20) THER/PROPH/DIAG INJ SC/IM (04/05/18) THER/PROPH/DIAG IV INF ADDON (03/01/19) THER/PROPH/DIAG IV INF INIT (08/15/19) TTE W/DOPPLER COMPLETE (04/10/19) TX/PRO/DX INJ NEW DRUG ADDON (01/05/20) TX/PRO/DX INJ SAME DRUG CLINICAL MANAGER (01/05/20) TX/PROPH/DG ADDL SEQ IV INF (07/04/19) UR ALBUMIN SEMIQUANTITATIVE (01/01/15) URINALYSIS AUTO W/O SCOPE (01/05/20) URINALYSIS AUTO W/SCOPE (11/20/19) URINALYSIS NONAUTO W/SCOPE (07/03/14) URINE BACTERIA CULTURE (12/02/14) URINE CULTURE/COLONY COUNT (11/01/19) US EXAM ABDOM COMPLETE (03/11/18) VITAMIN D 25 HYDROXY (07/20/18) X-RAY EXAM ABDOMEN 1 VIEW (05/29/19) X-RAY EXAM ABDOMEN 2 VIEWS (11/01/19) X-RAY EXAM CHEST 1 VIEW (05/21/19) X-RAY EXAM OF ABDOMEN (08/06/17) X-RAY EXAM OF ANKLE (08/02/17) X-RAY EXAM OF FOOT (08/02/17) X-RAY EXAM OF FOOT (12/26/14) X-RAY EXAM OF KNEE 3 (08/02/17) X-RAY EXAM OF LOWER LEG (02/02/16) (1) Small bowel obstruction SNOMED Code(s): 359195455 Code(s): K56.609 - UNSP INTESTNL OBST, UNSP TO PARTIAL VERSUS COMPLETE OBST Current Visit: Yes Problem List Initiated/Reviewed/Updated: Yes My Orders Last 24 Hours: NG clamped this morning. If no increased abdominal pain, nausea or vomiting can remove after 2 hours. Ok to advance diet to clears after that. If tolerated advance as necessary. Once tolerating regular diet ok to discharge home. Likely will go home tomorrow if all goes well. Discussed follow up with colorectal surgeon or surgical oncologist in future if this continues to happen. Will see in am if still here.
--- NOTE | 2020-01-14 11:10 | PCM.PN ---
- General Info Date of Service: 01/14/20 Admission Dx/Problem (Free Text): Admission Diagnosis/Problem Admission Diagnosis/Problem Small bowel obstruction Subjective Update: seen at bedside, had a bowel movement yesterday, pain is better today - Review of Systems General: Reports: Fatigue, Malaise. Denies: Fever, Weakness Pulmonary: Denies: Shortness of Breath, Pleuritic Chest Pain Cardiovascular: Denies: Chest Pain, Palpitations Gastrointestinal: Reports: Abdominal Pain, Decreased Appetite, Difficulty Swallowing Genitourinary: Denies: Dysuria, Frequency, Burning Musculoskeletal: Denies: Neck Pain, Shoulder Pain, Arm Pain Skin: Denies: Cyanosis, Jaundice, Mottled Neurological: Denies: Confusion, Dizziness, Headache - Patient Data Vitals - Most Recent: Last Vital Signs Temp 36.6 C 01/14/20 08:00 Pulse 100 01/14/20 08:00 Resp 12 01/14/20 08:00 BP 142/84 H 01/14/20 08:00 Pulse Ox 96 01/14/20 08:00 Weight - Most Recent: 160 kg I&O - Last 24 Hours: Intake & Output 01/13/20 01/14/20 01/14/20 22:59 06:59 14:59 Intake Total 1300 1443 10 Output Total 850 250 Balance 450 1193 10 Lab Results Last 24 Hours: Laboratory Results - last 24 hr 01/13/20 01/13/20 01/14/20 Range/Units 06:34 17:28 02:53 WBC (4.0-11.0) K/uL RBC (4.30-5.90) M/uL Hgb (12.0-16.0) g/dL Hct (36.0-46.0) % MCV (80.0-98.0) fL MCH (27.0-32.0) pg MCHC (31.0-37.0) g/dL RDW Std Deviation (28.0-62.0) fl RDW Coeff of Ej (11.0-15.0) % Plt Count (150-400) K/uL MPV (7.40-12.00) fL Neut % (Auto) (48.0-80.0) % Lymph % (Auto) (16.0-40.0) % Taylor % (Auto) (0.0-15.0) % Eos % (Auto) (0.0-7.0) % Baso % (Auto) (0.0-1.5) % Neut # (Auto) (1.4-5.7) K/uL Lymph # (Auto) (0.6-2.4) K/uL Taylor # (Auto) (0.0-0.8) K/uL Eos # (Auto) (0.0-0.7) K/uL Baso # (Auto) (0.0-0.1) K/uL Nucleated RBC % /100WBC Nucleated RBCs # K/uL Sodium (136-145) mmol/L Potassium (3.5-5.1) mmol/L Chloride (98-107) mmol/L Carbon Dioxide (21.0-32.0) mmol/L BUN (7.0-18.0) mg/dL Creatinine (0.6-1.0) mg/dL Est Cr Clr Drug Dosing mL/min Estimated GFR (MDRD) ml/min Glucose (74-106) mg/dL POC Glucose 128 H 121 H 113 H (60-110) mg/dL Calcium (8.5-10.1) mg/dL Phosphorus (2.6-4.7) mg/dL Magnesium (1.8-2.4) mg/dL Total Bilirubin (0.2-1.0) mg/dL AST (15-37) IU/L ALT (14-63) IU/L Alkaline Phosphatase (46-116) U/L Total Protein (6.4-8.2) g/dL Albumin (3.4-5.0) g/dL Globulin (2.6-4.0) g/dL Albumin/Globulin Ratio (0.9-1.6) 01/14/20 01/14/20 01/14/20 Range/Units 06:00 06:00 06:54 WBC 8.77 (4.0-11.0) K/uL RBC 3.83 L (4.30-5.90) M/uL Hgb 11.2 L (12.0-16.0) g/dL Hct 35.5 L (36.0-46.0) % MCV 92.7 (80.0-98.0) fL MCH 29.2 (27.0-32.0) pg MCHC 31.5 (31.0-37.0) g/dL RDW Std Deviation 56.1 (28.0-62.0) fl RDW Coeff of Ej 17 H (11.0-15.0) % Plt Count 158 (150-400) K/uL MPV 9.00 (7.40-12.00) fL Neut % (Auto) 73.8 (48.0-80.0) % Lymph % (Auto) 15.5 L (16.0-40.0) % Taylor % (Auto) 9.5 (0.0-15.0) % Eos % (Auto) 1.0 (0.0-7.0) % Baso % (Auto) 0.2 (0.0-1.5) % Neut # (Auto) 6.5 H (1.4-5.7) K/uL Lymph # (Auto) 1.4 (0.6-2.4) K/uL Taylor # (Auto) 0.8 (0.0-0.8) K/uL Eos # (Auto) 0.1 (0.0-0.7) K/uL Baso # (Auto) 0.0 (0.0-0.1) K/uL Nucleated RBC % 0.0 /100WBC Nucleated RBCs # 0 K/uL Sodium 142 (136-145) mmol/L Potassium 3.6 (3.5-5.1) mmol/L Chloride 106 (98-107) mmol/L Carbon Dioxide 23.7 (21.0-32.0) mmol/L BUN 7 (7.0-18.0) mg/dL Creatinine 0.8 (0.6-1.0) mg/dL Est Cr Clr Drug Dosing 60.62 mL/min Estimated GFR (MDRD) > 60.0 ml/min Glucose 121 H (74-106) mg/dL POC Glucose 110 (60-110) mg/dL Calcium 7.3 L (8.5-10.1) mg/dL Phosphorus 2.2 L (2.6-4.7) mg/dL Magnesium 1.8 (1.8-2.4) mg/dL Total Bilirubin 1.1 H (0.2-1.0) mg/dL AST 19 (15-37) IU/L ALT 14 (14-63) IU/L Alkaline Phosphatase 149 H (46-116) U/L Total Protein 5.2 L (6.4-8.2) g/dL Albumin 2.3 L (3.4-5.0) g/dL Globulin 2.9 (2.6-4.0) g/dL Albumin/Globulin Ratio 0.8 L (0.9-1.6) Med Orders - Current: Current Medications Albuterol/Ipratropium (Duoneb 3.0-0.5 Mg/3 Ml) 3 ml NEB Q4HRRT PRN PRN Reason: Shortness Of Breath/wheezing Enoxaparin Sodium (Lovenox) 40 mg SUBCUT Q24H MARIA T Last Admin: 01/13/20 18:08 Dose: 40 mg Hydromorphone HCl (Dilaudid) 1 mg IVPUSH Q4H PRN PRN Reason: Pain (severe 7-10) Last Admin: 01/14/20 08:27 Dose: 1 mg Lactated Ringer's (Ringers, Lactated) 1,000 mls @ 125 mls/hr IV ASDIRECTED MARIA T Last Admin: 01/14/20 04:13 Dose: 125 mls/hr Lidocaine HCl (Xylocaine 2% Viscous) 15 ml PO ASDIRECTED PRN PRN Reason: Agitation Last Admin: 01/13/20 19:47 Dose: 15 ml Lorazepam (Ativan) 1 mg IVPUSH Q6H PRN PRN Reason: Anxiety Last Admin: 01/14/20 02:23 Dose: 1 mg Ondansetron HCl (Zofran) 4 mg IVPUSH Q4H PRN PRN Reason: Nausea/Vomiting Last Admin: 01/14/20 00:02 Dose: 4 mg Pantoprazole Sodium (Protonix Iv) 40 mg IV Q12HR MARIA T Last Admin: 01/14/20 08:35 Dose: 40 mg Senna/Docusate Sodium (Senna Plus) 2 tab PO BEDTIME MARIA T Discontinued Medications Hydromorphone HCl (Dilaudid) 0.5 - 1 mg IVPUSH Q1H PRN PRN Reason: Pain Last Admin: 01/12/20 16:27 Dose: 1 mg Hydromorphone HCl (Dilaudid) 0.5 mg IVPUSH ONETIME ONE Stop: 01/12/20 17:09 Last Admin: 01/12/20 17:55 Dose: 0.5 mg Sodium Chloride (Normal Saline) 1,000 mls @ 1,000 mls/hr IV .Bolus ONE Stop: 01/12/20 15:30 Last Admin: 01/12/20 18:27 Dose: Not Given Sodium Chloride (Normal Saline) 500 mls @ 1,000 mls/hr IV .Bolus ONE Stop: 01/12/20 15:01 Last Admin: 01/12/20 14:55 Dose: 1,000 mls/hr Sodium Chloride (Normal Saline) 1,000 mls @ 1,000 mls/hr IV .Bolus ONE Stop: 01/12/20 17:55 Last Admin: 01/12/20 18:39 Dose: 1,000 mls/hr Magnesium Sulfate 2 gm/ Premix 50 mls @ 50 mls/hr IV ONETIME ONE Stop: 01/13/20 11:52 Last Admin: 01/13/20 11:22 Dose: 50 mls/hr Potassium Phosphate 15 mmole/ (Sodium Chloride) 255 mls @ 63.75 mls/hr IV NOW ONE Stop: 01/13/20 15:29 Last Admin: 01/13/20 13:01 Dose: 63.75 mls/hr Iopamidol (Isovue-370 (76%)) 100 ml IVPUSH ONETIME STA Stop: 01/12/20 16:06 Last Admin: 01/12/20 16:14 Dose: 100 ml Lorazepam (Ativan) 0.5 mg IVPUSH ONETIME ONE Stop: 01/12/20 17:09 Last Admin: 01/12/20 17:58 Dose: 0.5 mg Metoclopramide HCl (Reglan) 10 mg IVPUSH ONETIME ONE Stop: 01/12/20 15:31 Last Admin: 01/12/20 15:37 Dose: 10 mg Ondansetron HCl (Zofran) 4 mg IVPUSH ONETIME ONE Stop: 01/12/20 14:32 Last Admin: 01/12/20 18:27 Dose: Not Given Ondansetron HCl (Zofran) 8 mg IVPUSH ONETIME ONE Stop: 01/12/20 14:33 Last Admin: 01/12/20 14:50 Dose: 8 mg Senna/Docusate Sodium (Senokot-S) 2 each PO BEDTIME MARIA T Last Admin: 01/13/20 21:31 Dose: Not Given - Exam General: Alert, Oriented Neck: Supple, Trachea Midline Lungs: Clear to Auscultation, Normal Respiratory Effort Cardiovascular: Regular Rate, Regular Rhythm GI/Abdominal Exam: Soft, Distended, Tender Back Exam: Normal Inspection, Full Range of Motion Sepsis Event Note - Evaluation Sepsis Screening Result: No Definite Risk - Focused Exam Vital Signs: Vital Signs Temp Pulse Resp BP BP Pulse Ox 01/14/20 08:00 36.6 C 100 12 142/84 H 96 01/14/20 04:16 36.8 C 102 H 18 162/81 H 96 01/13/20 23:58 37.2 C 104 H 18 140/74 96 Date Exam was Performed: 01/14/20 Time Exam was Performed: 11:07 - Problem List & Annotations (1) Small bowel obstruction SNOMED Code(s): 927717050 Code(s): K56.609 - UNSP INTESTNL OBST, UNSP TO PARTIAL VERSUS COMPLETE OBST Status: Acute Current Visit: Yes (2) Abdominal pain SNOMED Code(s): 80975259 Code(s): R10.9 - UNSPECIFIED ABDOMINAL PAIN Status: Acute Current Visit: No Qualifiers: Abdominal location: generalized Qualified Code(s): R10.84 - Generalized abdominal pain (3) Metastatic colon cancer in female SNOMED Code(s): 502687252, 223634145 Code(s): C18.9 - MALIGNANT NEOPLASM OF COLON, UNSPECIFIED Status: Acute Priority: High Current Visit: No (4) Diabetes type 2, controlled SNOMED Code(s): 25824115, 710973157 Code(s): E11.9 - TYPE 2 DIABETES MELLITUS WITHOUT COMPLICATIONS Status: Chronic Priority: High Current Visit: No Qualifiers: Diabetes mellitus terminologist insulin use: without half-way use Diabetes mellitus complication status: without complication Qualified Code(s): E11.9 - Type 2 diabetes mellitus without complications (5) Hypertension SNOMED Code(s): 09705078 Code(s): I10 - ESSENTIAL (PRIMARY) HYPERTENSION Status: Chronic Current Visit: No Qualifiers: Hypertension type: unspecified Qualified Code(s): I10 - Essential (primary ) hypertension (6) Pacemaker SNOMED Code(s): 836604264 Code(s): Z95.0 - PRESENCE OF CARDIAC PACEMAKER Status: Chronic Current Visit: No (7) Hypomagnesemia SNOMED Code(s): 083583645 Code(s): E83.42 - HYPOMAGNESEMIA Status: Acute Current Visit: Yes - My Orders Last 24 Hours: My Active Orders 01/14/20 01:58 LORazepam [Ativan] 1 mg IVPUSH Q6H PRN 01/14/20 21:00 Docusate Sodium/Sennosides [Senna Plus] 2 tab PO BEDTIME - Plan Plan:: 59 y/o F admitted for SBO, NG tube in place NG tube has been clamped per surgeons direction If not increased pain, N/V will remove the NG tube Will start clear diet when NG is removed cont IV fluids LR@ 125cc/hr Dilaudid for pain control for now PPI daily cont Bowel regimen Magic mouth wash for throat pain likely due to abrasion caused by NG while it was put in. cont to monitor closely Lovenox for DVT ppx
[2020-01-14] MEDS ORDERED: Polyethylene Glycol 3350 Powder 17 GM Packet PO ONE (13:39)
[2020-01-14] MEDS: Diphenhydramine/Lidocaine/Nystatin Suspension 237 ML Bottle PO SCH ×3 (15:14→23:26)
[2020-01-14] MEDS: Enoxaparin 40 MG/0.4 ML Syringe SUBCUT SCH (17:47)
[2020-01-15] MEDS: HYDROmorphone 2 MG/ML Syringe IVPUSH PRN ×2 (01:53→06:00)
[2020-01-15] MEDS: Lactated Ringers 1,000 ML IV SCH ×3 (02:57→19:09)
[2020-01-15] MEDS: Diphenhydramine/Lidocaine/Nystatin Suspension 237 ML Bottle PO SCH ×4 (06:02→23:50)
[2020-01-15] MEDS: Ondansetron 4 MG/2 ML SDV IVPUSH PRN ×4 (06:06→21:57)
[2020-01-15 06:32] LABS: BLOOD UREA NITROGEN,BUN 6 mg/dL (7.0-18.0); CARBON DIOXIDE,CO2 25.7 mmol/L (21.0-32.0); CHLORIDE,CL 106 mmol/L (98-107); GLUCOSE RANDOM 109 mg/dL (74-106); POTASSIUM,K 3.5 mmol/L (3.5-5.1); SODIUM,NA 140 mmol/L (136-145)
[2020-01-15] MEDS: Pantoprazole 40 MG Vial IV SCH ×2 (08:19→21:08)
[2020-01-15] MEDS ORDERED: fentaNYL 25 MCG/HR Transdermal Patch TRDERM SCH (09:15)
--- NOTE | 2020-01-15 09:31 | PCM.PN ---
- General Info Date of Service: 01/15/20 Admission Dx/Problem (Free Text): Admission Diagnosis/Problem Admission Diagnosis/Problem Small bowel obstruction Subjective Update: Nausea is ok, no vomiting. Has abdominal pain. Tolerating CL diet, but eating small amounts. No chest pain. Passing gas, BM yesterday Functional Status: Reports: Pain Controlled, Tolerating Diet, Ambulating - Review of Systems General: Reports: Malaise HEENT: Reports: No Symptoms Pulmonary: Reports: No Symptoms. Denies: Shortness of Breath Cardiovascular: Reports: No Symptoms. Denies: Chest Pain Gastrointestinal: Reports: Abdominal Pain, Nausea. Denies: Vomiting Genitourinary: Reports: No Symptoms. Denies: Dysuria, Frequency, Burning Musculoskeletal: Reports: No Symptoms Skin: Reports: No Symptoms Neurological: Reports: No Symptoms Psychiatric: Reports: No Symptoms - Patient Data Vitals - Most Recent: Last Vital Signs Temp 98.9 F 01/15/20 07:00 Pulse 106 H 01/15/20 07:00 Resp 16 01/15/20 07:00 BP 137/81 01/15/20 07:00 Pulse Ox 98 01/15/20 07:00 Weight - Most Recent: 160 kg I&O - Last 24 Hours: Intake & Output 01/14/20 01/15/20 01/15/20 22:59 06:59 14:59 Intake Total 1556 1456 Output Total 545 300 Balance 1011 1156 Lab Results Last 24 Hours: Laboratory Results - last 24 hr 01/14/20 01/14/20 01/14/20 Range/Units 12:30 18:57 22:38 WBC (4.0-11.0) K/uL RBC (4.30-5.90) M/uL Hgb (12.0-16.0) g/dL Hct (36.0-46.0) % MCV (80.0-98.0) fL MCH (27.0-32.0) pg MCHC (31.0-37.0) g/dL RDW Std Deviation (28.0-62.0) fl RDW Coeff of Ej (11.0-15.0) % Plt Count (150-400) K/uL MPV (7.40-12.00) fL Neut % (Auto) (48.0-80.0) % Lymph % (Auto) (16.0-40.0) % [place] % (Auto) (0.0-15.0) % Eos % (Auto) (0.0-7.0) % Baso % (Auto) (0.0-1.5) % Neut # (Auto) (1.4-5.7) K/uL Lymph # (Auto) (0.6-2.4) K/uL [place] # (Auto) (0.0-0.8) K/uL Eos # (Auto) (0.0-0.7) K/uL Baso # (Auto) (0.0-0.1) K/uL Nucleated RBC % /100WBC Nucleated RBCs # K/uL Sodium (136-145) mmol/L Potassium (3.5-5.1) mmol/L Chloride (98-107) mmol/L Carbon Dioxide (21.0-32.0) mmol/L BUN (7.0-18.0) mg/dL Creatinine (0.6-1.0) mg/dL Est Cr Clr Drug Dosing mL/min Estimated GFR (MDRD) ml/min Glucose (74-106) mg/dL POC Glucose 124 H 124 H 108 (60-110) mg/dL Calcium (8.5-10.1) mg/dL Phosphorus (2.6-4.7) mg/dL Magnesium (1.8-2.4) mg/dL Total Bilirubin (0.2-1.0) mg/dL AST (15-37) IU/L ALT (14-63) IU/L Alkaline Phosphatase (46-116) U/L Total Protein (6.4-8.2) g/dL Albumin (3.4-5.0) g/dL Globulin (2.6-4.0) g/dL Albumin/Globulin Ratio (0.9-1.6) 01/15/20 01/15/20 01/15/20 Range/Units 06:00 06:00 06:10 WBC 8.17 (4.0-11.0) K/uL RBC 3.94 L (4.30-5.90) M/uL Hgb 11.7 L (12.0-16.0) g/dL Hct 36.5 (36.0-46.0) % MCV 92.6 (80.0-98.0) fL MCH 29.7 (27.0-32.0) pg MCHC 32.1 (31.0-37.0) g/dL RDW Std Deviation 55.4 (28.0-62.0) fl RDW Coeff of Ej 16 H (11.0-15.0) % Plt Count 153 (150-400) K/uL MPV 9.00 (7.40-12.00) fL Neut % (Auto) 67.4 (48.0-80.0) % Lymph % (Auto) 20.4 (16.0-40.0) % [place] % (Auto) 9.7 (0.0-15.0) % Eos % (Auto) 2.3 (0.0-7.0) % Baso % (Auto) 0.2 (0.0-1.5) % Neut # (Auto) 5.5 (1.4-5.7) K/uL Lymph # (Auto) 1.7 (0.6-2.4) K/uL [place] # (Auto) 0.8 (0.0-0.8) K/uL Eos # (Auto) 0.2 (0.0-0.7) K/uL Baso # (Auto) 0.0 (0.0-0.1) K/uL Nucleated RBC % 0.0 /100WBC Nucleated RBCs # 0 K/uL Sodium 140 (136-145) mmol/L Potassium 3.5 (3.5-5.1) mmol/L Chloride 106 (98-107) mmol/L Carbon Dioxide 25.7 (21.0-32.0) mmol/L BUN 6 L (7.0-18.0) mg/dL Creatinine 0.8 (0.6-1.0) mg/dL Est Cr Clr Drug Dosing 60.62 mL/min Estimated GFR (MDRD) > 60.0 ml/min Glucose 109 H (74-106) mg/dL POC Glucose 100 (60-110) mg/dL Calcium 7.3 L (8.5-10.1) mg/dL Phosphorus 1.7 L (2.6-4.7) mg/dL Magnesium 1.5 L (1.8-2.4) mg/dL Total Bilirubin 0.9 (0.2-1.0) mg/dL AST 20 (15-37) IU/L ALT 12 L (14-63) IU/L Alkaline Phosphatase 145 H (46-116) U/L Total Protein 5.2 L (6.4-8.2) g/dL Albumin 2.2 L (3.4-5.0) g/dL Globulin 3.0 (2.6-4.0) g/dL Albumin/Globulin Ratio 0.7 L (0.9-1.6) Med Orders - Current: Current Medications Albuterol/Ipratropium (Duoneb 3.0-0.5 Mg/3 Ml) 3 ml NEB Q4HRRT PRN PRN Reason: Shortness Of Breath/wheezing Diphenhydramine/Nystatin/Lidocaine (Magic Mouthwash) 15 ml PO QID [facility] Last Admin: 01/15/20 06:02 Dose: 15 ml Enoxaparin Sodium (Lovenox) 40 mg SUBCUT Q24H [facility] Last Admin: 01/14/20 17:47 Dose: 40 mg Fentanyl (Duragesic) 25 mcg TRDERM Q72H [facility] Hydromorphone HCl (Dilaudid) 1 mg IVPUSH Q4H PRN PRN Reason: Pain (severe 7-10) Lactated Ringer's (Ringers, Lactated) 1,000 mls @ 125 mls/hr IV ASDIRECTED [facility] Last Admin: 01/15/20 02:57 Dose: 125 mls/hr Lorazepam (Ativan) 1 mg IVPUSH Q6H PRN PRN Reason: Anxiety Last Admin: 01/14/20 11:56 Dose: 1 mg Ondansetron HCl (Zofran) 4 mg IVPUSH Q4H PRN PRN Reason: Nausea/Vomiting Last Admin: 01/15/20 06:06 Dose: 4 mg Pantoprazole Sodium (Protonix Iv) 40 mg IV Q12HR [facility] Last Admin: 01/15/20 08:19 Dose: 40 mg Senna/Docusate Sodium (Senna Plus) 2 tab PO BEDTIME [facility] Last Admin: 01/14/20 20:06 Dose: Not Given Discontinued Medications Hydromorphone HCl (Dilaudid) 0.5 - 1 mg IVPUSH Q1H PRN PRN Reason: Pain Last Admin: 01/12/20 16:27 Dose: 1 mg Hydromorphone HCl (Dilaudid) 0.5 mg IVPUSH ONETIME ONE Stop: 01/12/20 17:09 Last Admin: 01/12/20 17:55 Dose: 0.5 mg Hydromorphone HCl (Dilaudid) 1 mg IVPUSH Q4H PRN PRN Reason: Pain (severe 7-10) Last Admin: 01/15/20 06:00 Dose: 1 mg Sodium Chloride (Normal Saline) 1,000 mls @ 1,000 mls/hr IV .Bolus ONE Stop: 01/12/20 15:30 Last Admin: 01/12/20 18:27 Dose: Not Given Sodium Chloride (Normal Saline) 500 mls @ 1,000 mls/hr IV .Bolus ONE Stop: 01/12/20 15:01 Last Admin: 01/12/20 14:55 Dose: 1,000 mls/hr Sodium Chloride (Normal Saline) 1,000 mls @ 1,000 mls/hr IV .Bolus ONE Stop: 01/12/20 17:55 Last Admin: 01/12/20 18:39 Dose: 1,000 mls/hr Magnesium Sulfate 2 gm/ Premix 50 mls @ 50 mls/hr IV ONETIME ONE Stop: 01/13/20 11:52 Last Admin: 01/13/20 11:22 Dose: 50 mls/hr Potassium Phosphate 15 mmole/ (Sodium Chloride) 255 mls @ 63.75 mls/hr IV NOW ONE Stop: 01/13/20 15:29 Last Admin: 01/13/20 13:01 Dose: 63.75 mls/hr Iopamidol (Isovue-370 (76%)) 100 ml IVPUSH ONETIME STA Stop: 01/12/20 16:06 Last Admin: 01/12/20 16:14 Dose: 100 ml Lidocaine HCl (Xylocaine 2% Viscous) 15 ml PO ASDIRECTED PRN PRN Reason: Agitation Last Admin: 01/13/20 19:47 Dose: 15 ml Lorazepam (Ativan) 0.5 mg IVPUSH ONETIME ONE Stop: 01/12/20 17:09 Last Admin: 01/12/20 17:58 Dose: 0.5 mg Metoclopramide HCl (Reglan) 10 mg IVPUSH ONETIME ONE Stop: 01/12/20 15:31 Last Admin: 01/12/20 15:37 Dose: 10 mg Ondansetron HCl (Zofran) 4 mg IVPUSH ONETIME ONE Stop: 01/12/20 14:32 Last Admin: 01/12/20 18:27 Dose: Not Given Ondansetron HCl (Zofran) 8 mg IVPUSH ONETIME ONE Stop: 01/12/20 14:33 Last Admin: 01/12/20 14:50 Dose: 8 mg Polyethylene Glycol (Miralax) 17 gm PO ONETIME ONE Stop: 01/14/20 13:40 Last Admin: 01/14/20 14:55 Dose: 17 gm Senna/Docusate Sodium (Senokot-S) 2 each PO BEDTIME [facility] Last Admin: 01/13/20 21:31 Dose: Not Given - Exam General: Alert, Oriented, Cooperative, No Acute Distress Lungs: Clear to Auscultation, Normal Respiratory Effort Cardiovascular: Regular Rate, Regular Rhythm GI/Abdominal Exam: Normal Bowel Sounds, Soft, No Distention, Tender, Mass Extremities: Normal Inspection, Normal Range of Motion, Non-Tender Neurological: No New Focal Deficit Psy/Mental Status: Alert, Normal Affect, Normal Mood Sepsis Event Note - Evaluation Sepsis Screening Result: No Definite Risk - Focused Exam Vital Signs: Vital Signs Temp Pulse Resp BP Pulse Ox 01/15/20 07:00 98.9 F 106 H 16 137/81 98 01/15/20 03:02 97.8 F 88 16 148/86 H 97 01/14/20 23:27 98.4 F 94 18 159/84 H 98 Date Exam was Performed: 01/15/20 Time Exam was Performed: 09:59 - Problem List & Annotations (1) Small bowel obstruction SNOMED Code(s): 703161325 Code(s): K56.609 - UNSP INTESTNL OBST, UNSP TO PARTIAL VERSUS COMPLETE OBST Status: Acute Current Visit: Yes (2) Metastatic colon cancer in female SNOMED Code(s): 983107422, 589269291 Code(s): C18.9 - MALIGNANT NEOPLASM OF COLON, UNSPECIFIED Status: Acute Priority: High Current Visit: No (3) Diabetes type 2, controlled SNOMED Code(s): 82356286, 930606017 Code(s): E11.9 - TYPE 2 DIABETES MELLITUS WITHOUT COMPLICATIONS Status: Chronic Priority: High Current Visit: No Qualifiers: Diabetes mellitus intermediate designer insulin use: without custodial use Diabetes mellitus complication status: without complication Qualified Code(s): E11.9 - Type 2 diabetes mellitus without complications (4) GERD (gastroesophageal reflux disease) SNOMED Code(s): 540951209 Code(s): K21.9 - GASTRO-ESOPHAGEAL REFLUX DISEASE WITHOUT ESOPHAGITIS Status: Chronic Current Visit: No (5) History of malignant neoplasm metastatic to liver SNOMED Code(s): 6245602162537133 Code(s): Z85.05 - PERSONAL HISTORY OF MALIGNANT NEOPLASM OF LIVER Status: Chronic Priority: High Current Visit: No (6) Hypertension SNOMED Code(s): 09322794 Code(s): I10 - ESSENTIAL (PRIMARY) HYPERTENSION Status: Chronic Current Visit: No Qualifiers: Hypertension type: unspecified Qualified Code(s): I10 - Essential (primary ) hypertension (7) Pacemaker SNOMED Code(s): 842637056 Code(s): Z95.0 - PRESENCE OF CARDIAC PACEMAKER Status: Chronic Current Visit: No - Problem List Review Problem List Initiated/Reviewed/Updated: Yes - My Orders Last 24 Hours: My Active Orders 01/15/20 09:15 fentaNYL [Duragesic] 25 mcg TRDERM Q72H - Plan Plan:: 59 y/o F admitted for SBO 1. SBO - Resolved, passing gas and had BM yesterday. - Nausea tolerable. Pain is at baseline, and continues - Will continue Dilaudid and restart Fentanyl patch. - PPI daily - Secondary to metastatic disease, Dr Izquierdo consulted. Recommended possible colorectal surgeon consultation if this continues to happen. Discussed this with Leanne, she is unsure if she would even want surgery. She wonders what the benefits would be, if it only would extend her life significantly. She doesn't feel as though she has support at home. She is willing to speak with Hospice regarding palliative care vs Hospice. 2. Dm Type 2: - BS stable, not eating much. Will hold off on Insulin now, BS 100-115s - Check BS TIDAC 3. HTN: -Stable, BP 120-130 SBP. Hold off on antihypertensives currently due to stable BP. VTE prophylaxis: Lovenox Code Status: DNR/DNI Consults: Dr Izquierdo and Hospice Dispo: 1-2 days pending improvement
[2020-01-15] MEDS: HYDROmorphone 1 MG/ML Syringe IVPUSH PRN ×4 (09:38→21:56)
[2020-01-15] MEDS: Enoxaparin 40 MG/0.4 ML Syringe SUBCUT SCH (18:36)
[2020-01-16] MEDS: HYDROmorphone 1 MG/ML Syringe IVPUSH PRN ×2 (02:06→05:55)
[2020-01-16] MEDS: Ondansetron 4 MG/2 ML SDV IVPUSH PRN ×5 (02:06→20:00)
[2020-01-16] MEDS: Lactated Ringers 1,000 ML IV SCH (03:16)
[2020-01-16 05:52] LABS: BLOOD UREA NITROGEN,BUN 4 mg/dL (7.0-18.0); CHLORIDE,CL 103 mmol/L (98-107); GLUCOSE RANDOM 113 mg/dL (74-106); POTASSIUM,K 3.3 mmol/L (3.5-5.1); SODIUM,NA 137 mmol/L (136-145)
[2020-01-16] MEDS: Diphenhydramine/Lidocaine/Nystatin Suspension 237 ML Bottle PO SCH ×3 (05:54→18:01)
[2020-01-16] MEDS: Pantoprazole 40 MG Vial IV SCH ×2 (08:29→21:01)
[2020-01-16] MEDS ORDERED: Prochlorperazine 10 MG/2 ML SDV IVPUSH PRN (09:06)
[2020-01-16] MEDS: HYDROmorphone 2 MG Tab PO PRN ×3 (09:34→20:00)
[2020-01-16] MEDS ORDERED: Magnesium Sulfate 4 GM in Sodium Chloride 0.9% with KCl 1,000 ML IV ONE (10:18)
--- NOTE | 2020-01-16 10:19 | PCM.PN ---
- General Info Date of Service: 01/16/20 Admission Dx/Problem (Free Text): Admission Diagnosis/Problem Admission Diagnosis/Problem Small bowel obstruction Subjective Update: Feeling more nauseated today after Fentanyl patch was placed. Denies chest pain. Abdominal pain continues. Tolerating CL diet fairly, but not taking much due to nausea. Had 2 BMs yesterday. Discussed care with Hospice, will do Home Health for now. No decision made with Hospice or palliative care yet. Functional Status: Reports: Tolerating Diet, Ambulating, Urinating. Denies: Pain Controlled - Review of Systems General: Reports: No Symptoms HEENT: Reports: No Symptoms Pulmonary: Reports: No Symptoms. Denies: Shortness of Breath Cardiovascular: Reports: No Symptoms. Denies: Chest Pain Gastrointestinal: Reports: Abdominal Pain, Flatus, Nausea. Denies: Diarrhea, Vomiting Genitourinary: Reports: No Symptoms. Denies: Dysuria, Frequency, Burning Skin: Reports: No Symptoms Neurological: Reports: No Symptoms Psychiatric: Reports: No Symptoms - Patient Data Vitals - Most Recent: Last Vital Signs Temp 97.8 F 01/16/20 07:10 Pulse 90 01/16/20 07:10 Resp 16 01/16/20 07:10 BP 144/77 H 01/16/20 07:10 Pulse Ox 95 01/16/20 07:10 Weight - Most Recent: 160 kg I&O - Last 24 Hours: Intake & Output 01/15/20 01/16/20 01/16/20 22:59 06:59 14:59 Intake Total 1654 1550 Output Total 680 Balance 1654 870 Lab Results Last 24 Hours: Laboratory Results - last 24 hr 01/15/20 01/15/20 01/16/20 Range/Units 11:59 17:43 05:24 WBC 8.61 (4.0-11.0) K/uL RBC 3.85 L (4.30-5.90) M/uL Hgb 11.6 L (12.0-16.0) g/dL Hct 35.3 L (36.0-46.0) % MCV 91.7 (80.0-98.0) fL MCH 30.1 (27.0-32.0) pg MCHC 32.9 (31.0-37.0) g/dL RDW Std Deviation 54.4 (28.0-62.0) fl RDW Coeff of Ej 16 H (11.0-15.0) % Plt Count 167 (150-400) K/uL MPV 9.10 (7.40-12.00) fL Neut % (Auto) 68.7 (48.0-80.0) % Lymph % (Auto) 20.4 (16.0-40.0) % [place] % (Auto) 8.7 (0.0-15.0) % Eos % (Auto) 2.0 (0.0-7.0) % Baso % (Auto) 0.2 (0.0-1.5) % Neut # (Auto) 5.9 H (1.4-5.7) K/uL Lymph # (Auto) 1.8 (0.6-2.4) K/uL [place] # (Auto) 0.8 (0.0-0.8) K/uL Eos # (Auto) 0.2 (0.0-0.7) K/uL Baso # (Auto) 0.0 (0.0-0.1) K/uL Nucleated RBC % 0.0 /100WBC Nucleated RBCs # 0 K/uL Sodium (136-145) mmol/L Potassium (3.5-5.1) mmol/L Chloride (98-107) mmol/L Carbon Dioxide (21.0-32.0) mmol/L BUN (7.0-18.0) mg/dL Creatinine (0.6-1.0) mg/dL Est Cr Clr Drug Dosing mL/min Estimated GFR (MDRD) ml/min Glucose (74-106) mg/dL POC Glucose 155 H 132 H (60-110) mg/dL Calcium (8.5-10.1) mg/dL Magnesium (1.8-2.4) mg/dL Total Bilirubin (0.2-1.0) mg/dL AST (15-37) IU/L ALT (14-63) IU/L Alkaline Phosphatase (46-116) U/L Total Protein (6.4-8.2) g/dL Albumin (3.4-5.0) g/dL Globulin (2.6-4.0) g/dL Albumin/Globulin Ratio (0.9-1.6) 01/16/20 01/16/20 01/16/20 Range/Units 05:24 05:24 06:36 WBC (4.0-11.0) K/uL RBC (4.30-5.90) M/uL Hgb (12.0-16.0) g/dL Hct (36.0-46.0) % MCV (80.0-98.0) fL MCH (27.0-32.0) pg MCHC (31.0-37.0) g/dL RDW Std Deviation (28.0-62.0) fl RDW Coeff of Ej (11.0-15.0) % Plt Count (150-400) K/uL MPV (7.40-12.00) fL Neut % (Auto) (48.0-80.0) % Lymph % (Auto) (16.0-40.0) % [place] % (Auto) (0.0-15.0) % Eos % (Auto) (0.0-7.0) % Baso % (Auto) (0.0-1.5) % Neut # (Auto) (1.4-5.7) K/uL Lymph # (Auto) (0.6-2.4) K/uL [place] # (Auto) (0.0-0.8) K/uL Eos # (Auto) (0.0-0.7) K/uL Baso # (Auto) (0.0-0.1) K/uL Nucleated RBC % /100WBC Nucleated RBCs # K/uL Sodium 137 (136-145) mmol/L Potassium 3.3 L (3.5-5.1) mmol/L Chloride 103 (98-107) mmol/L Carbon Dioxide 25.0 (21.0-32.0) mmol/L BUN 4 L (7.0-18.0) mg/dL Creatinine 0.8 (0.6-1.0) mg/dL Est Cr Clr Drug Dosing 60.62 mL/min Estimated GFR (MDRD) > 60.0 ml/min Glucose 113 H (74-106) mg/dL POC Glucose 113 H (60-110) mg/dL Calcium 7.1 L (8.5-10.1) mg/dL Magnesium 1.3 L (1.8-2.4) mg/dL Total Bilirubin 0.9 (0.2-1.0) mg/dL AST 21 (15-37) IU/L ALT 11 L (14-63) IU/L Alkaline Phosphatase 141 H (46-116) U/L Total Protein 5.2 L (6.4-8.2) g/dL Albumin 2.3 L (3.4-5.0) g/dL Globulin 2.9 (2.6-4.0) g/dL Albumin/Globulin Ratio 0.8 L (0.9-1.6) Med Orders - Current: Current Medications Albuterol/Ipratropium (Duoneb 3.0-0.5 Mg/3 Ml) 3 ml NEB Q4HRRT PRN PRN Reason: Shortness Of Breath/wheezing Diphenhydramine/Nystatin/Lidocaine (Magic Mouthwash) 15 ml PO QID [facility] Last Admin: 01/16/20 05:54 Dose: 15 ml Enoxaparin Sodium (Lovenox) 40 mg SUBCUT Q24H [facility] Last Admin: 01/15/20 18:36 Dose: 40 mg Hydromorphone HCl (Dilaudid) 4 mg PO Q4HR PRN PRN Reason: Pain Last Admin: 01/16/20 09:34 Dose: 4 mg Lactated Ringer's (Ringers, Lactated) 1,000 mls @ 125 mls/hr IV ASDIRECTED [facility] Last Admin: 01/16/20 03:16 Dose: 125 mls/hr Lorazepam (Ativan) 1 mg IVPUSH Q6H PRN PRN Reason: Anxiety Last Admin: 01/14/20 11:56 Dose: 1 mg Ondansetron HCl (Zofran) 4 mg IVPUSH Q4H PRN PRN Reason: Nausea/Vomiting Last Admin: 01/16/20 09:35 Dose: 4 mg Pantoprazole Sodium (Protonix Iv) 40 mg IV Q12HR [facility] Last Admin: 01/16/20 08:29 Dose: 40 mg Prochlorperazine Edisylate (Compazine) 10 mg IVPUSH Q6H PRN PRN Reason: Nausea/Vomiting Senna/Docusate Sodium (Senna Plus) 2 tab PO BEDTIME [facility] Last Admin: 01/15/20 21:09 Dose: Not Given Discontinued Medications Fentanyl (Duragesic) 25 mcg TRDERM Q72H [facility] Last Admin: 01/15/20 09:40 Dose: 25 mcg Hydromorphone HCl (Dilaudid) 0.5 - 1 mg IVPUSH Q1H PRN PRN Reason: Pain Last Admin: 01/12/20 16:27 Dose: 1 mg Hydromorphone HCl (Dilaudid) 0.5 mg IVPUSH ONETIME ONE Stop: 01/12/20 17:09 Last Admin: 01/12/20 17:55 Dose: 0.5 mg Hydromorphone HCl (Dilaudid) 1 mg IVPUSH Q4H PRN PRN Reason: Pain (severe 7-10) Last Admin: 01/15/20 06:00 Dose: 1 mg Hydromorphone HCl (Dilaudid) 1 mg IVPUSH Q4H PRN PRN Reason: Pain (severe 7-10) Last Admin: 01/16/20 05:55 Dose: 1 mg Sodium Chloride (Normal Saline) 1,000 mls @ 1,000 mls/hr IV .Bolus ONE Stop: 01/12/20 15:30 Last Admin: 01/12/20 18:27 Dose: Not Given Sodium Chloride (Normal Saline) 500 mls @ 1,000 mls/hr IV .Bolus ONE Stop: 01/12/20 15:01 Last Admin: 01/12/20 14:55 Dose: 1,000 mls/hr Sodium Chloride (Normal Saline) 1,000 mls @ 1,000 mls/hr IV .Bolus ONE Stop: 01/12/20 17:55 Last Admin: 01/12/20 18:39 Dose: 1,000 mls/hr Magnesium Sulfate 2 gm/ Premix 50 mls @ 50 mls/hr IV ONETIME ONE Stop: 01/13/20 11:52 Last Admin: 01/13/20 11:22 Dose: 50 mls/hr Potassium Phosphate 15 mmole/ (Sodium Chloride) 255 mls @ 63.75 mls/hr IV NOW ONE Stop: 01/13/20 15:29 Last Admin: 01/13/20 13:01 Dose: 63.75 mls/hr Iopamidol (Isovue-370 (76%)) 100 ml IVPUSH ONETIME STA Stop: 01/12/20 16:06 Last Admin: 01/12/20 16:14 Dose: 100 ml Lidocaine HCl (Xylocaine 2% Viscous) 15 ml PO ASDIRECTED PRN PRN Reason: Agitation Last Admin: 01/13/20 19:47 Dose: 15 ml Lorazepam (Ativan) 0.5 mg IVPUSH ONETIME ONE Stop: 01/12/20 17:09 Last Admin: 01/12/20 17:58 Dose: 0.5 mg Metoclopramide HCl (Reglan) 10 mg IVPUSH ONETIME ONE Stop: 01/12/20 15:31 Last Admin: 01/12/20 15:37 Dose: 10 mg Ondansetron HCl (Zofran) 4 mg IVPUSH ONETIME ONE Stop: 01/12/20 14:32 Last Admin: 01/12/20 18:27 Dose: Not Given Ondansetron HCl (Zofran) 8 mg IVPUSH ONETIME ONE Stop: 01/12/20 14:33 Last Admin: 01/12/20 14:50 Dose: 8 mg Polyethylene Glycol (Miralax) 17 gm PO ONETIME ONE Stop: 01/14/20 13:40 Last Admin: 01/14/20 14:55 Dose: 17 gm Senna/Docusate Sodium (Senokot-S) 2 each PO BEDTIME [facility] Last Admin: 01/13/20 21:31 Dose: Not Given - Exam General: Alert, Oriented, Cooperative, No Acute Distress Lungs: Clear to Auscultation, Normal Respiratory Effort Cardiovascular: Regular Rate, Regular Rhythm GI/Abdominal Exam: Normal Bowel Sounds, Soft, Tender (throughout), Mass Extremities: Normal Inspection, Normal Range of Motion, Non-Tender, No Pedal Edema Neurological: No New Focal Deficit Psy/Mental Status: Alert, Normal Affect, Normal Mood Sepsis Event Note - Evaluation Sepsis Screening Result: No Definite Risk - Focused Exam Vital Signs: Vital Signs Temp Pulse Resp BP Pulse Ox 01/16/20 07:10 97.8 F 90 16 144/77 H 95 01/16/20 06:38 97.6 F 88 16 145/74 H 96 01/15/20 23:50 98.8 F 92 18 141/94 H 97 Date Exam was Performed: 01/16/20 Time Exam was Performed: 10:11 - Problem List & Annotations (1) Small bowel obstruction SNOMED Code(s): 280258225 Code(s): K56.609 - UNSP INTESTNL OBST, UNSP TO PARTIAL VERSUS COMPLETE OBST Status: Acute Current Visit: Yes (2) Metastatic colon cancer in female SNOMED Code(s): 591902056, 904186711 Code(s): C18.9 - MALIGNANT NEOPLASM OF COLON, UNSPECIFIED Status: Acute Priority: High Current Visit: No (3) Diabetes type 2, controlled SNOMED Code(s): 33570074, 363994452 Code(s): E11.9 - TYPE 2 DIABETES MELLITUS WITHOUT COMPLICATIONS Status: Chronic Priority: High Current Visit: No Qualifiers: 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 use: without fpc use Diabetes mellitus complication status: without complication Qualified Code(s): E11.9 - Type 2 diabetes mellitus without complications (4) GERD (gastroesophageal reflux disease) SNOMED Code(s): 346424851 Code(s): K21.9 - GASTRO-ESOPHAGEAL REFLUX DISEASE WITHOUT ESOPHAGITIS Status: Chronic Current Visit: No (5) History of malignant neoplasm metastatic to liver SNOMED Code(s): 8919245774483765 Code(s): Z85.05 - PERSONAL HISTORY OF MALIGNANT NEOPLASM OF LIVER Status: Chronic Priority: High Current Visit: No (6) Hypertension SNOMED Code(s): 67785157 Code(s): I10 - ESSENTIAL (PRIMARY) HYPERTENSION Status: Chronic Current Visit: No Qualifiers: Hypertension type: unspecified Qualified Code(s): I10 - Essential (primary ) hypertension (7) Pacemaker SNOMED Code(s): 094948933 Code(s): Z95.0 - PRESENCE OF CARDIAC PACEMAKER Status: Chronic Current Visit: No - Problem List Review Problem List Initiated/Reviewed/Updated: Yes - My Orders Last 24 Hours: My Active Orders 01/15/20 09:31 Consult to Hospice [CONS] Routine 01/16/20 09:06 HYDROmorphone [Dilaudid] 4 mg PO Q4HR PRN Prochlorperazine [Compazine] 10 mg IVPUSH Q6H PRN 01/16/20 Breakfast Soft Diet [DIET] 01/17/20 05:11 CBC WITH AUTO DIFF [HEME] AM COMPREHENSIVE METABOLIC PN,CMP [CHEM] AM 01/18/20 05:11 CBC WITH AUTO DIFF [HEME] AM COMPREHENSIVE METABOLIC PN,CMP [CHEM] AM - Plan Plan:: 59 y/o F admitted for SBO 1. Metastatic colon cancer - SBO Resolved, passing gas and had BMs - Nausea worsened after fentayl patch placed. Will remove and monitor. Add Compazine along with Zofran - Will continue Dilaudid change to PO and monitor. - PPI daily - Spoke to Hospice, at this time decided for Home health and will continue to think about Hospice. 2. Hypokalemia, hypomagnesemia - replace via IV today, recheck in am 3. Dm Type 2: - BS stable, not eating much. Will hold off on Insulin now, BS 100-115s - Check BS TIDAC 4. HTN: -Stable, BP 120-130 SBP. Hold off on antihypertensives currently due to stable BP. VTE prophylaxis: Lovenox Code Status: DNR/DNI Consults: Dr Izquierdo and Hospice Dispo: 1-2 days pending improvement
[2020-01-16] MEDS ORDERED: MAGNESIUM SULFATE IV ONE (10:45)
[2020-01-16] MEDS ORDERED: POTASSIUM CHLORIDE IV ONE (10:45)
[2020-01-16] MEDS ORDERED: SODIUM CHLORIDE 0.9% IV ONE (10:45)
[2020-01-16] MEDS: LORazepam 2 MG/ML SDV IVPUSH PRN (16:41)
[2020-01-16] MEDS: Enoxaparin 40 MG/0.4 ML Syringe SUBCUT SCH (18:02)
[2020-01-17] MEDS: Diphenhydramine/Lidocaine/Nystatin Suspension 237 ML Bottle PO SCH ×3 (00:14→11:28)
[2020-01-17] MEDS: Ondansetron 4 MG/2 ML SDV IVPUSH PRN ×2 (04:56→09:17)
[2020-01-17] MEDS: HYDROmorphone 2 MG Tab PO PRN ×2 (05:00→09:17)
[2020-01-17 05:57] LABS: BLOOD UREA NITROGEN,BUN 3 mg/dL (7.0-18.0); CARBON DIOXIDE,CO2 23.2 mmol/L (21.0-32.0); CHLORIDE,CL 105 mmol/L (98-107); GLUCOSE RANDOM 113 mg/dL (74-106); POTASSIUM,K 3.6 mmol/L (3.5-5.1); SODIUM,NA 138 mmol/L (136-145)
[2020-01-17 07:29] VITALS: BP 141/83; PULSE 98
[2020-01-17] MEDS: Pantoprazole 40 MG Vial IV SCH (08:35)
--- NOTE | 2020-01-17 10:10 | PCM.DCSUM1 ---
Discharge Summary - Hospital Course Brief History: Patient is a 59 year old female with a history of Stage IV colon cancer with mets to liver, peritoneum, and abdominal wall, HTN, CAD, Type II DM , and pacemaker who presents to ER with c/p Nausea and vomiting that started today and has been getting worse. N/V is associated with abdominal distension and pain. States her last bowel moment was this AM and it was very small. Patient was admitted here one week ago with similar complaints but at that time her symptoms were not as bad and she was discharged after conservative management. Patient denied any fever, chills, syncope, fall, cough,. In the ER NG placed and 800ml of bright green output was obtained immediately. CT abdomen pelvis shows an area of matted bowel along the anterior abdominal wall associated with peritoneal implants. There is no free air. Surgery was consulted and recommended conservative care for now. Patient is being admitted for further care. Diagnosis: Stroke: No - Discharge Data Discharge Date: 01/17/20 Discharge Disposition: Home, Home Health Agency 06 Condition: Stable - Referral to Home Health Date of Face to Face Encounter: 01/17/20 Reason for Homebound Status: Leanne is unable to drive due to chronic narcotic use and needs caregiver to drive her to appointments. Primary Care Physician: PCP Unobtainable Skilled Need: Leanne is in need of [facility] care to assess bowel function , pain management, and monitoring of vital signs. She is in need of support regarding palliative care measures with worsening metastatic disease and poor prognosis. 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 mellitus 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 insulin use: without 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 use Diabetes mellitus complication status: without complication Qualified Code(s): E11.9 - Type 2 diabetes mellitus without complications (4) GERD (gastroesophageal reflux disease) SNOMED Code(s): 929973463 ICD Code: K21.9 - GASTRO-ESOPHAGEAL REFLUX DISEASE WITHOUT ESOPHAGITIS Status: Chronic Current Visit: No (5) History of malignant neoplasm metastatic to liver SNOMED Code(s): 9692674844339564 ICD Code: Z85.05 - PERSONAL HISTORY OF MALIGNANT NEOPLASM OF LIVER Status: Chronic Priority: High Current Visit: No (6) Hypertension SNOMED Code(s): 69243009 ICD Code: I10 - ESSENTIAL (PRIMARY) HYPERTENSION Status: Chronic Current Visit: No Qualifiers: Hypertension type: unspecified Qualified Code(s): I10 - Essential (primary ) hypertension (7) Pacemaker SNOMED Code(s): 259528767 ICD Code: Z95.0 - PRESENCE OF CARDIAC PACEMAKER Status: Chronic Current Visit: No - Patient Summary/Data Consults: Consultations 01/15/20 09:31 Consult to Hospice [CONS] Routine Hospital Course: Admitting Diagnoses: SBO Metastatic disease Discharge Diagnoses: SBO- resolved Leanne was admitted secondary to SBO which is likely related to metastatic disease. Dr Izquierdo was consulted recommended conservative management. Did speak about if this continues to happen she may need to consider consultation with colorectal surgeon to help with this. Leanne is unsure if she would want surgery as it may not prolong her life. Hospice was consulted, at this time she is not sure about Palliative or Hospice care at this time. She knows prognosis is poor for her. She was treated with conservative therapy. She is having BMs, nausea was worse after Fentanyl patch was restarted. This was stopped and nausea improved. Continue Dilaudid 4 mg every 4 hours PRN pain along with zofran and compazine. She needs to keep up with bowel regimen and keep diet liquids to soft. She is to return to the ED or clinic if concerns should arise. She has follow up with Dr Cho, oncology next week. She will also go home with Home health. - Patient Instructions Diet: GI Soft/Low Residue/Low Fiber (encourage protein shakes. keep diet soft and more liquids) Activity: As Tolerated, No Strenuous Activities Driving: Do Not Drive Showering/Bathing: May Shower Notify Provider of: Fever, Increased Pain, Swelling and Redness, Drainage, Nausea and/or Vomiting - Discharge Plan *PRESCRIPTION DRUG MONITORING PROGRAM REVIEWED*: Not Applicable *COPY OF PRESCRIPTION DRUG MONITORING REPORT IN PATIENT THELMA: Not Applicable Prescriptions/Med Rec: HYDROmorphone [Dilaudid] 4 mg PO Q4HR PRN #30 tablet PRN Reason: Pain Ondansetron [Zofran ODT] 4 mg PO Q4HR PRN #30 tab.dis PRN Reason: Nausea and vomiting Docusate Sodium/Sennosides [Senna Plus] 2 tab PO BEDTIME #60 tablet Prochlorperazine [Compazine] 10 mg PO TID PRN #30 tablet PRN Reason: nausea and vomiting Home Medications: Home Meds metFORMIN [Glucophage] 1,000 mg PO BIDMEALS PRN 05/09/14 [History] LORazepam [Ativan] 1 mg PO BEDTIME PRN 12/26/15 [History] Insulin Glarg,Human.Rec.Analog [LantUS Solostar] 34 units SUBCUT BID PRN [History] Pantoprazole [ProTONIX] 40 mg PO . BEFORE SUPPER 08/06/17 [History] Insulin Aspart [NovoLOG] 14 unit SUBCUT TIDAC 02/04/18 [History] Loperamide [Imodium] 2 mg PO Q4H PRN MDD loose stool 07/20/18 [History] Loratadine [Claritin] 10 mg PO DAILY PRN 03/01/19 [History] atorvaSTATin Calcium [Lipitor] 80 mg PO DAILY 03/01/19 [History] Valsartan 160 mg PO DAILY 30 Days #30 tablet 03/02/19 [Rx] hydroCHLOROthiazide [Hydrochlorothiazide] 25 mg PO DAILY 30 Days #30 tablet [Rx] Diphenhyd/Lidocaine/Nystatin [Magic Mouthwash] 5 ml PO Q4H PRN MDD Oral Ulcers 11/01/19 [History] Magnesium Oxide 400 mg PO BID PRN 11/01/19 [History] bisacodyL [Dulcolax] 10 mg RECTAL DAILY PRN #30 supp 12/15/19 [Rx] Regorafenib [Stivarga] 160 mg PO BID 01/05/20 [History] amLODIPine [Norvasc] 5 mg PO DAILY 01/05/20 [History] Vancomycin 125 mg PO Q6HR #32 cap 01/08/20 [Rx] Potassium Chloride [Klor-Con M20] 40 meq PO DAILY PRN 01/12/20 [History] polyethylene glycoL 3350 [MiraLAX] 17 gm PO DAILY PRN 01/12/20 [History] Docusate Sodium/Sennosides [Senna Plus] 2 tab PO BEDTIME #60 tablet 01/17/20 [Rx ] HYDROmorphone [Dilaudid] 4 mg PO Q4HR PRN #30 tablet 01/17/20 [Rx] Ondansetron [Zofran ODT] 4 mg PO Q4HR PRN #30 tab.dis 01/17/20 [Rx] Prochlorperazine [Compazine] 10 mg PO TID PRN #30 tablet 01/17/20 [Rx] Oxygen Therapy Mode: Room Air Patient Handouts: Senna tablets or capsules, Ondansetron tablets, Bowel Obstruction, [id number], Prochlorperazine tablets, Hydromorphone tablets Referrals: Raman Cho MD [Ordering Only Provider] - 01/24/20 10:20 am - Discharge Summary/Plan Comment DC Time >30 min.: No - Patient Data Vitals - Most Recent: Last Vital Signs Temp 99.1 F 01/17/20 07:28 Pulse 98 01/17/20 07:28 Resp 16 01/17/20 07:28 BP 141/83 H 01/17/20 07:28 Pulse Ox 95 01/17/20 07:28 Weight - Most Recent: 160 kg I&O - Last 24 hours: Intake & Output 01/16/20 01/17/20 01/17/20 22:59 06:59 14:59 Intake Total 1997 200 Output Total 550 300 Balance 1448 -100 Lab Results - Last 24 hrs: Laboratory Results - last 24 hr 01/16/20 01/16/20 01/17/20 Range/Units 12:01 17:40 05:21 WBC 7.97 (4.0-11.0) K/uL RBC 3.73 L (4.30-5.90) M/uL Hgb 11.3 L (12.0-16.0) g/dL Hct 34.4 L (36.0-46.0) % MCV 92.2 (80.0-98.0) fL MCH 30.3 (27.0-32.0) pg MCHC 32.8 (31.0-37.0) g/dL RDW Std Deviation 55.4 (28.0-62.0) fl RDW Coeff of Ej 16 H (11.0-15.0) % Plt Count 149 L (150-400) K/uL MPV 9.20 (7.40-12.00) fL Neut % (Auto) 72.0 (48.0-80.0) % Lymph % (Auto) 16.6 (16.0-40.0) % Elk % (Auto) 9.5 (0.0-15.0) % Eos % (Auto) 1.8 (0.0-7.0) % Baso % (Auto) 0.1 (0.0-1.5) % Neut # (Auto) 5.7 (1.4-5.7) K/uL Lymph # (Auto) 1.3 (0.6-2.4) K/uL Elk # (Auto) 0.8 (0.0-0.8) K/uL Eos # (Auto) 0.1 (0.0-0.7) K/uL Baso # (Auto) 0.0 (0.0-0.1) K/uL Nucleated RBC % 0.0 /100WBC Nucleated RBCs # 0 K/uL Sodium (136-145) mmol/L Potassium (3.5-5.1) mmol/L Chloride (98-107) mmol/L Carbon Dioxide (21.0-32.0) mmol/L BUN (7.0-18.0) mg/dL Creatinine (0.6-1.0) mg/dL Est Cr Clr Drug Dosing mL/min Estimated GFR (MDRD) ml/min Glucose (74-106) mg/dL POC Glucose 118 H 108 (60-110) mg/dL Calcium (8.5-10.1) mg/dL Magnesium (1.8-2.4) mg/dL Total Bilirubin (0.2-1.0) mg/dL AST (15-37) IU/L ALT (14-63) IU/L Alkaline Phosphatase (46-116) U/L Total Protein (6.4-8.2) g/dL Albumin (3.4-5.0) g/dL Globulin (2.6-4.0) g/dL Albumin/Globulin Ratio (0.9-1.6) 01/17/20 Range/Units 05:21 WBC (4.0-11.0) K/uL RBC (4.30-5.90) M/uL Hgb (12.0-16.0) g/dL Hct (36.0-46.0) % MCV (80.0-98.0) fL MCH (27.0-32.0) pg MCHC (31.0-37.0) g/dL RDW Std Deviation (28.0-62.0) fl RDW Coeff of Ej (11.0-15.0) % Plt Count (150-400) K/uL MPV (7.40-12.00) fL Neut % (Auto) (48.0-80.0) % Lymph % (Auto) (16.0-40.0) % Elk % (Auto) (0.0-15.0) % Eos % (Auto) (0.0-7.0) % Baso % (Auto) (0.0-1.5) % Neut # (Auto) (1.4-5.7) K/uL Lymph # (Auto) (0.6-2.4) K/uL Elk # (Auto) (0.0-0.8) K/uL Eos # (Auto) (0.0-0.7) K/uL Baso # (Auto) (0.0-0.1) K/uL Nucleated RBC % /100WBC Nucleated RBCs # K/uL Sodium 138 (136-145) mmol/L Potassium 3.6 (3.5-5.1) mmol/L Chloride 105 (98-107) mmol/L Carbon Dioxide 23.2 (21.0-32.0) mmol/L BUN 3 L (7.0-18.0) mg/dL Creatinine 0.8 (0.6-1.0) mg/dL Est Cr Clr Drug Dosing 60.62 mL/min Estimated GFR (MDRD) > 60.0 ml/min Glucose 113 H (74-106) mg/dL POC Glucose (60-110) mg/dL Calcium 7.2 L (8.5-10.1) mg/dL Magnesium 1.9 (1.8-2.4) mg/dL Total Bilirubin 0.8 (0.2-1.0) mg/dL AST 22 (15-37) IU/L ALT 11 L (14-63) IU/L Alkaline Phosphatase 138 H (46-116) U/L Total Protein 5.1 L (6.4-8.2) g/dL Albumin 2.2 L (3.4-5.0) g/dL Globulin 2.9 (2.6-4.0) g/dL Albumin/Globulin Ratio 0.8 L (0.9-1.6) Med Orders - Current: Current Medications Albuterol/Ipratropium (Duoneb 3.0-0.5 Mg/3 Ml) 3 ml NEB Q4HRRT PRN PRN Reason: Shortness Of Breath/wheezing Diphenhydramine/Nystatin/Lidocaine (Magic Mouthwash) 15 ml PO QID [facility] Last Admin: 01/17/20 06:13 Dose: 15 ml Enoxaparin Sodium (Lovenox) 40 mg SUBCUT Q24H [facility] Last Admin: 01/16/20 18:02 Dose: 40 mg Hydromorphone HCl (Dilaudid) 4 mg PO Q4HR PRN PRN Reason: Pain Last Admin: 01/17/20 09:17 Dose: 4 mg Lorazepam (Ativan) 1 mg IVPUSH Q6H PRN PRN Reason: Anxiety Last Admin: 01/16/20 16:41 Dose: 1 mg Ondansetron HCl (Zofran) 4 mg IVPUSH Q4H PRN PRN Reason: Nausea/Vomiting Last Admin: 01/17/20 09:17 Dose: 4 mg Pantoprazole Sodium (Protonix Iv) 40 mg IV Q12HR [facility] Last Admin: 01/17/20 08:35 Dose: 40 mg Prochlorperazine Edisylate (Compazine) 10 mg IVPUSH Q6H PRN PRN Reason: Nausea/Vomiting Last Admin: 01/16/20 15:57 Dose: 10 mg Senna/Docusate Sodium (Senna Plus) 2 tab PO BEDTIME [facility] Last Admin: 01/16/20 21:09 Dose: Not Given Discontinued Medications Fentanyl (Duragesic) 25 mcg TRDERM Q72H MARIA T Last Admin: 01/15/20 09:40 Dose: 25 mcg Hydromorphone HCl (Dilaudid) 0.5 - 1 mg IVPUSH Q1H PRN PRN Reason: Pain Last Admin: 01/12/20 16:27 Dose: 1 mg Hydromorphone HCl (Dilaudid) 0.5 mg IVPUSH ONETIME ONE Stop: 01/12/20 17:09 Last Admin: 01/12/20 17:55 Dose: 0.5 mg Hydromorphone HCl (Dilaudid) 1 mg IVPUSH Q4H PRN PRN Reason: Pain (severe 7-10) Last Admin: 01/15/20 06:00 Dose: 1 mg Hydromorphone HCl (Dilaudid) 1 mg IVPUSH Q4H PRN PRN Reason: Pain (severe 7-10) Last Admin: 01/16/20 05:55 Dose: 1 mg Sodium Chloride (Normal Saline) 1,000 mls @ 1,000 mls/hr IV .Bolus ONE Stop: 01/12/20 15:30 Last Admin: 01/12/20 18:27 Dose: Not Given Sodium Chloride (Normal Saline) 500 mls @ 1,000 mls/hr IV .Bolus ONE Stop: 01/12/20 15:01 Last Admin: 01/12/20 14:55 Dose: 1,000 mls/hr Sodium Chloride (Normal Saline) 1,000 mls @ 1,000 mls/hr IV .Bolus ONE Stop: 01/12/20 17:55 Last Admin: 01/12/20 18:39 Dose: 1,000 mls/hr Lactated Ringer's (Ringers, Lactated) 1,000 mls @ 125 mls/hr IV ASDIRECTED [facility] Last Admin: 01/16/20 03:16 Dose: 125 mls/hr Magnesium Sulfate 2 gm/ Premix 50 mls @ 50 mls/hr IV ONETIME ONE Stop: 01/13/20 11:52 Last Admin: 01/13/20 11:22 Dose: 50 mls/hr Potassium Phosphate 15 mmole/ (Sodium Chloride) 255 mls @ 63.75 mls/hr IV NOW ONE Stop: 01/13/20 15:29 Last Admin: 01/13/20 13:01 Dose: 63.75 mls/hr Potassium Chloride 40 meq/Magnesium Sulfate 4 gm/ Sodium Chloride 1,028 mls @ 125 mls/hr IV ONETIME ONE Stop: 01/16/20 18:58 Last Admin: 01/16/20 10:56 Dose: 125 mls/hr Iopamidol (Isovue-370 (76%)) 100 ml IVPUSH ONETIME STA Stop: 01/12/20 16:06 Last Admin: 01/12/20 16:14 Dose: 100 ml Lidocaine HCl (Xylocaine 2% Viscous) 15 ml PO ASDIRECTED PRN PRN Reason: Agitation Last Admin: 01/13/20 19:47 Dose: 15 ml Lorazepam (Ativan) 0.5 mg IVPUSH ONETIME ONE Stop: 01/12/20 17:09 Last Admin: 01/12/20 17:58 Dose: 0.5 mg Metoclopramide HCl (Reglan) 10 mg IVPUSH ONETIME ONE Stop: 01/12/20 15:31 Last Admin: 01/12/20 15:37 Dose: 10 mg Ondansetron HCl (Zofran) 4 mg IVPUSH ONETIME ONE Stop: 01/12/20 14:32 Last Admin: 01/12/20 18:27 Dose: Not Given Ondansetron HCl (Zofran) 8 mg IVPUSH ONETIME ONE Stop: 01/12/20 14:33 Last Admin: 01/12/20 14:50 Dose: 8 mg Polyethylene Glycol (Miralax) 17 gm PO ONETIME ONE Stop: 01/14/20 13:40 Last Admin: 01/14/20 14:55 Dose: 17 gm Senna/Docusate Sodium (Senokot-S) 2 each PO BEDTIME MARIA T Last Admin: 01/13/20 21:31 Dose: Not Given - Exam General: Reports: Alert, Oriented, Cooperative, No Acute Distress GI/Abdominal Exam: Normal Bowel Sounds, Soft, Distended, Tender, Mass Back Exam: Reports: Normal Inspection, Full Range of Motion Extremities: Normal Inspection, Normal Range of Motion Skin: Reports: Warm Psy/Mental Status: Reports: Alert, Normal Affect, Normal Mood
== END 2020-01-17 12:10 | disposition home health service (06) | DRG 375 ==
LOC: MW.ED 13:51 → MW.MS 17:58
PROVIDERS: ADMIT Student in an Organized Health Care Education/Training Program; ATTEND Student in an Organized Health Care Education/Training Program
DX: K56.609 Unspecified intestinal obstruction, unspecified as to partial versus complete obstruction (principal); H54.7 Unspecified visual loss; C18.9 Malignant neoplasm of colon, unspecified; C78.7 Secondary malignant neoplasm of liver and intrahepatic bile duct; E78.00 Pure hypercholesterolemia, unspecified; C79.2 Secondary malignant neoplasm of skin; C78.6 Secondary malignant neoplasm of retroperitoneum and peritoneum; Z87.440 Personal history of urinary (tract) infections; K21.9 Gastro-esophageal reflux disease without esophagitis; Z66 Do not resuscitate; E11.9 Type 2 diabetes mellitus without complications; I10 Essential (primary) hypertension; F41.9 Anxiety disorder, unspecified; F32.9 Major depressive disorder, single episode, unspecified; E87.6 Hypokalemia; C79.89 Secondary malignant neoplasm of other specified sites; M89.9 Disorder of bone, unspecified; E83.42 Hypomagnesemia; I25.10 Atherosclerotic heart disease of native coronary artery without angina pectoris; Z95.0 Presence of cardiac pacemaker; Z88.5 Allergy status to narcotic agent; Z88.6 Allergy status to analgesic agent; Z88.8 Allergy status to other drugs, medicaments and biological substances; Z79.4 Long term (current) use of insulin; Z79.899 Other long term (current) drug therapy; Z90.49 Acquired absence of other specified parts of digestive tract; Z90.710 Acquired absence of both cervix and uterus
CPT/HCPCS: 36415; 71275; 71275-26; 73060-26-RT; 73060-RT; 74018; 74018-26; 74177; 74177-26; 80053; 82962; 83605; 83690; 83735; 84100; 84484; 85025; 85379; 93005; 96361; 96374; 96375; 96376; 99291; A9270-GY; C9113; J0780; J1170; J1642; J1650; J2060; J2405; J2765; J3475; J3480; J7030; J7050; J7120; Q9967

== ENCOUNTER 2020-01-20 17:27 | Inpatient (IN) | payer OTHER ==
[2020-01-20] MEDS ORDERED: Sodium Chloride 0.9% 1,000 ML IV ONE (17:33)
[2020-01-20] MEDS ORDERED: Sodium Chloride 0.9% 2.5 ML Syringe FLUSH PRN (17:33)
[2020-01-20] MEDS ORDERED: Ondansetron 4 MG/2 ML SDV IVPUSH ONE (17:33)
[2020-01-20] MEDS ORDERED: Sodium Chloride 0.9% 10 ML Syringe FLUSH PRN (17:33)
--- NOTE | 2020-01-20 17:44 | EDM.PDOC ---
ED HPI GENERAL MEDICAL PROBLEM - General Chief Complaint: Abdominal Pain Stated Complaint: ABDOMINAL PAIN & BOTH FEET ARE SWELLING Time Seen by Provider: 01/20/20 17:33 Source of Information: Reports: Patient History Limitations: Reports: No Limitations - History of Present Illness INITIAL COMMENTS - FREE TEXT/NARRATIVE: 59-year-old female with history of stage IV colon cancer with mets to liver, peritoneum, abdominal wall, HTN, CAD, DM II, C. difficile colitis, pacemaker presents with worsening abdominal pain today. Pain is diffuse, described as bloaty sensation, associated with nausea. Denies vomiting, diarrhea, fevers or chills, chest pain. She had a small bowel movement yesterday. She is currently DNR/DNI. She was recently discharged for small bowel obstruction with conservative management from surgical consult. ROS: A 10-point review of systems, other than pertinent positives and negatives as stated per HPI, is otherwise negative PHYSICAL EXAM General: AOx4, GCS = 15, moderate distress HEENT: dry mucous membrane Neck: supple, no meningismus, no Kernig or Brudzinski Cardiac: S1S2 tachycardia Respiratory: CTAB, no crackles or rales, no wheezing Abdomen: Soft, tender diffusely, no rebound or guarding, nondistended, no pulsatile mass. Back: nontender Musculoskeletal: NVI distally, no deformity Neuro: No focal deficits. MEDICAL DECISION MAKING: I reviewed the patients past medical records, lab and radiographic findings. I discussed the case with family members. My differential diagnosis included: SBO, LBL, ileus. Abdominal Pain Score (Numeric/FACES): 10 - Related Data Allergies Allergy/AdvReac Type Severity Reaction Status Date / Time hydrocodone Allergy Unknown Hives Verified 01/20/20 18:17 ibuprofen Allergy Unknown Hives Verified 01/20/20 18:17 morphine Allergy Unknown Seizure Verified 01/20/20 18:17 nitroglycerin Allergy Unknown Difficulty Verified 01/20/20 18:17 Breathing caffeine Allergy Vomiting Verified 01/20/20 18:17 cyanocobalamin (vitamin B12) Allergy Nausea and Verified 01/20/20 18:17 Vomiting diphenhydramine HCl Allergy Excitabilit Verified 01/20/20 18:17 [From Benadryl] y pyridoxine Allergy Nausea and Verified 01/20/20 18:17 Vomiting vitamin B6 Allergy Other Uncoded 01/20/20 18:17 Home Meds: Home Meds RX: metFORMIN [Glucophage] 1,000 mg PO BIDMEALS PRN 05/09/14 [History] RX: LORazepam [Ativan] 1 mg PO BEDTIME PRN 12/26/15 [History] RX: Insulin Glarg,Human.Rec.Analog [LantUS Solostar] 34 units SUBCUT BID PRN 12/18 [History] RX: Pantoprazole [ProTONIX] 40 mg PO . BEFORE SUPPER 08/06/17 [History] RX: Insulin Aspart [NovoLOG] 14 unit SUBCUT TIDAC 02/04/18 [History] RX: Loperamide [Imodium] 2 mg PO Q4H PRN MDD loose stool 07/20/18 [History] RX: Loratadine [Claritin] 10 mg PO DAILY PRN 03/01/19 [History] RX: atorvaSTATin Calcium [Lipitor] 80 mg PO DAILY 03/01/19 [History] RX: Valsartan 160 mg PO DAILY 30 Days #30 tablet 03/02/19 [Rx] RX: hydroCHLOROthiazide [Hydrochlorothiazide] 25 mg PO DAILY 30 Days #30 tablet 03/02/19 [Rx] RX: Diphenhyd/Lidocaine/Nystatin [Magic Mouthwash] 5 ml PO Q4H PRN MDD Oral Ulcers 11/01/19 [History] RX: Magnesium Oxide 400 mg PO BID PRN 11/01/19 [History] RX: bisacodyL [Dulcolax] 10 mg RECTAL DAILY PRN #30 supp 12/15/19 [Rx] RX: Regorafenib [Stivarga] 160 mg PO BID 01/05/20 [History] RX: amLODIPine [Norvasc] 5 mg PO DAILY 01/05/20 [History] RX: Vancomycin 125 mg PO Q6HR #32 cap 01/08/20 [Rx] RX: Potassium Chloride [Klor-Con M20] 40 meq PO DAILY PRN 01/12/20 [History] RX: polyethylene glycoL 3350 [MiraLAX] 17 gm PO DAILY PRN 01/12/20 [History] RX: Docusate Sodium/Sennosides [Senna Plus] 2 tab PO BEDTIME #60 tablet [Rx] RX: HYDROmorphone [Dilaudid] 4 mg PO Q4HR PRN #30 tablet 01/17/20 [Rx] RX: Ondansetron [Zofran ODT] 4 mg PO Q4HR PRN #30 tab.dis 01/17/20 [Rx] RX: Prochlorperazine [Compazine] 10 mg PO TID PRN #30 tablet 01/17/20 [Rx] Past Medical History HEENT History: Reports: Impaired Vision Other HEENT History: wears glasses Cardiovascular History: Reports: CAD, High Cholesterol, Hypertension, Pacemaker Other Cardiovascular History: Pacer on Righ Side. Port on Left side. 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 Musculoskeletal History: Reports: None Neurological History: Reports: None Psychiatric History: Reports: Anxiety, Depression Endocrine/Metabolic History: Reports: Diabetes, Type II Hematologic History: Reports: None Immunologic History: Reports: None Oncologic (Cancer) History: Reports: Colon, Liver, Metastatic Dermatologic History: Reports: None - Infectious Disease History Infectious Disease History: Reports: C-Difficile, Measles Other Infectious Disease History: childhood - Past Surgical History HEENT Surgical History: Reports: Adenoidectomy, Tonsillectomy Cardiovascular Surgical History: Reports: None Respiratory Surgical History: Reports: Other (See Below) Other Respiratory Surgeries/Procedures: chest tube placements GI Surgical History: Reports: Cholecystectomy, Colon, Hernia Repair/Other Other GI Surgeries/Procedures: colectomy x2 Female Surgical History: Reports: Section, Hysterectomy, Salpingo- Oophorectomy Other Female Surgeries/Procedures: X2 Endocrine Surgical History: Reports: None Neurological Surgical History: Reports: None Musculoskeletal Surgical History: Reports: Other (See Below) Other Musculoskeletal Surgeries/Procedures:: rigth knee pain Oncologic Surgical History: Reports: Other (See Below) Other Oncologic Surgeries/Procedures: Patient currently on oral Chemo Dermatological Surgical History: Reports: None Social & Family History - Family History Family Medical History: Noncontributory GI: Reports: None - Caffeine Use Caffeine Use: Reports: None Caffeine Use Comment: allergic to caffeine - Living Situation & Occupation Living situation: Reports: ED ROS GENERAL - Review of Systems Review Of Systems: See Below (see dictation) ED EXAM, GI/ABD - Physical Exam Exam: See Below (see dictation) EKG INTERPRETATION EKG Interpretation Comments: 100 Bpm, sinus tach, normal QRS interval, no STEMI. EKG and rhythm strip interpreted by me at 1802 Course - Vital Signs Last Recorded V/S: Last Vital Signs Temp 97.3 F 01/20/20 17:45 Pulse 99 01/20/20 17:45 Resp 17 01/20/20 17:45 BP 148/88 H 01/20/20 17:45 Pulse Ox 98 01/20/20 17:45 - Orders/Labs/Meds Orders: Active Orders 24 hr Category Date Time Status Admission Status [Patient Status] [ADT] Stat ADT 01/20/20 18:38 Ordered EKG 12 Lead [EKG Documentation Completion] [RC] STAT Care 01/20/20 17:44 Active Gastrointestinal Tube Mgmt [RC] ASDIRECTED Care 01/20/20 18:36 Active Abdomen 1V Flat [CR] Stat Exams 01/20/20 18:35 Ordered TROPONIN I [CHEM] Stat Lab 01/20/20 18:02 Received UA W/MICROSCOPIC [URIN] Stat Lab 01/20/20 17:33 Ordered Sodium Chloride 0.9% [Saline Flush] Med 01/20/20 17:33 Active 10 ml FLUSH ASDIRECTED PRN Sodium Chloride 0.9% [Saline Flush] Med 01/20/20 17:33 Active 2.5 ml FLUSH ASDIRECTED PRN Nasogastric Orogastric Tube Insertion [OM.PC] Stat Oth 01/20/20 18:35 Ordered Saline Lock Insert [OM.PC] Stat Oth 01/20/20 17:33 Ordered Medication Orders Sodium Chloride (Saline Flush) 10 ml FLUSH ASDIRECTED PRN PRN Reason: Keep Vein Open Last Admin: 01/20/20 18:02 Dose: 10 ml Sodium Chloride (Saline Flush) 2.5 ml FLUSH ASDIRECTED PRN PRN Reason: Keep Vein Open Last Admin: 01/20/20 18:02 Dose: 2.5 ml Labs: Laboratory Tests 01/20/20 01/20/20 01/20/20 Range/Units 18:02 18:02 18:02 WBC 8.10 (4.0-11.0) K/uL RBC 3.93 L (4.30-5.90) M/uL Hgb 11.9 L (12.0-16.0) g/dL Hct 35.9 L (36.0-46.0) % MCV 91.3 (80.0-98.0) fL MCH 30.3 (27.0-32.0) pg MCHC 33.1 (31.0-37.0) g/dL RDW Std Deviation 54.7 (28.0-62.0) fl RDW Coeff of Ej 16 H (11.0-15.0) % Plt Count 184 (150-400) K/uL MPV 9.30 (7.40-12.00) fL Neut % (Auto) 74.5 (48.0-80.0) % Lymph % (Auto) 13.2 L (16.0-40.0) % [place] % (Auto) 10.9 (0.0-15.0) % Eos % (Auto) 1.0 (0.0-7.0) % Baso % (Auto) 0.4 (0.0-1.5) % Neut # (Auto) 6.0 H (1.4-5.7) K/uL Lymph # (Auto) 1.1 (0.6-2.4) K/uL [place] # (Auto) 0.9 H (0.0-0.8) K/uL Eos # (Auto) 0.1 (0.0-0.7) K/uL Baso # (Auto) 0.0 (0.0-0.1) K/uL Nucleated RBC % 0.0 /100WBC Nucleated RBCs # 0 K/uL Lactate 0.8 (0.20-2.00) mmol/L Sodium 135 L (136-145) mmol/L Potassium 3.9 (3.5-5.1) mmol/L Chloride 99 (98-107) mmol/L Carbon Dioxide 25.1 (21.0-32.0) mmol/L BUN 5 L (7.0-18.0) mg/dL Creatinine 0.8 (0.6-1.0) mg/dL Est Cr Clr Drug Dosing 60.62 mL/min Estimated GFR (MDRD) > 60.0 ml/min Glucose 147 H (74-106) mg/dL Calcium 7.9 L (8.5-10.1) mg/dL Total Bilirubin 1.1 H (0.2-1.0) mg/dL AST 30 (15-37) IU/L ALT 17 (14-63) IU/L Alkaline Phosphatase 216 H (46-116) U/L Total Protein 6.4 (6.4-8.2) g/dL Albumin 2.8 L (3.4-5.0) g/dL Globulin 3.6 (2.6-4.0) g/dL Albumin/Globulin Ratio 0.8 L (0.9-1.6) Lipase 34 L (73-393) U/L Meds: Medications Generic Name Dose Route Start Last Admin Trade Name Freq PRN Reason Stop Dose Admin Sodium Chloride 10 ml 01/20/20 17:33 01/20/20 18:02 Saline Flush FLUSH 10 ml ASDIRECTED PRN Administration Keep Vein Open Sodium Chloride 2.5 ml 01/20/20 17:33 01/20/20 18:02 Saline Flush FLUSH 2.5 ml ASDIRECTED PRN Administration Keep Vein Open Discontinued Medications Generic Name Dose Route Start Last Admin Trade Name Freq PRN Reason Stop Dose Admin Sodium Chloride 1,000 mls @ 999 mls/hr 01/20/20 17:33 01/20/20 18:01 Normal Saline IV 01/20/20 18:33 999 mls/hr BOLUS ONE Administration Ondansetron HCl 4 mg 01/20/20 17:33 01/20/20 18:02 Zofran IVPUSH 01/20/20 17:34 4 mg ONETIME ONE Administration - Re-Assessments/Exams Free Text/Narrative Re-Assessment/Exam: 01/20/20 18:25 - paging Dr. Baljit Heart, and Dr. Trevino for admission. Free Text/Narrative Re-Assessment/Exam: 01/20/20 18:32 - case discussed with Dr. Trevino, who agrees to assume care at this point. The hospitalist's documentation supersedes all other documentation on this patient with regard to any conflicts or discrepancies from this point forward. Any emergency conditions have been treated to the ability of the ED prior to admission. Case d/w Dr. Baljit Heart, will consult on the floor, recommends NG tube. Departure - Departure Time of Disposition: 18:25 Disposition: Admitted As Inpatient 67 Condition: Good, Fair Clinical Impression: Small bowel obstruction - Discharge Information Referrals: PCP,None [Primary Care Provider] - Forms: ED Department Discharge Critical Care Note - Critical Care Note Total Time (mins): 40 Comments: Critical Care: The high probability of sudden, clinically significant deterioration in the patient's condition required the highest level of my preparedness to intervene urgently. The services I provided to this patient were to treat and/or prevent clinically significant deterioration. Services included the following: chart data review, reviewing nursing notes and/or old charts, documentation time, cardiology consultants collaboration regarding findings and treatment options, medication orders and management, direct patient care, vital sign assessments and ordering, interpreting and reviewing diagnostic studies/lab tests. Aggregate critical care time includes only time during which I was engaged in work directly related to the patient's care, as described above, whether at the bedside or elsewhere in the Emergency Department. It did not include time spent performing other reported procedures or the services of residents, students, nurses or physician assistants. Frequent interventions and/or frequent repeat evaluations were required as well as counseling and coordination of care regarding prognosis, treatments, and discussions with patient, staff and consultants. Critical Care (excluding other procedures): 40 minutes Sepsis Event Note - Focused Exam Vital Signs: Vital Signs Temp Pulse Resp BP Pulse Ox 01/20/20 17:45 97.3 F 99 17 148/88 H 98 Date Exam was Performed: 01/20/20 Time Exam was Performed: 18:42 - My Orders Last 24 Hours: My Active Orders 01/20/20 17:33 UA W/MICROSCOPIC [URIN] Stat Sodium Chloride 0.9% [Saline Flush] 10 ml FLUSH ASDIRECTED PRN Sodium Chloride 0.9% [Saline Flush] 2.5 ml FLUSH ASDIRECTED PRN Saline Lock Insert [OM.PC] Stat 01/20/20 17:44 EKG 12 Lead [EKG Documentation Completion] [RC] STAT 01/20/20 18:02 TROPONIN I [CHEM] Stat 01/20/20 18:35 Abdomen 1V Flat [CR] Stat Nasogastric Orogastric Tube Insertion [OM.PC] Stat 01/20/20 18:36 Gastrointestinal Tube Mgmt [RC] ASDIRECTED 01/20/20 18:38 Admission Status [Patient Status] [ADT] Stat - Assessment/Plan Last 24 Hours: My Active Orders 01/20/20 17:33 UA W/MICROSCOPIC [URIN] Stat Sodium Chloride 0.9% [Saline Flush] 10 ml FLUSH ASDIRECTED PRN Sodium Chloride 0.9% [Saline Flush] 2.5 ml FLUSH ASDIRECTED PRN Saline Lock Insert [OM.PC] Stat 01/20/20 17:44 EKG 12 Lead [EKG Documentation Completion] [RC] STAT 01/20/20 18:02 TROPONIN I [CHEM] Stat 01/20/20 18:35 Abdomen 1V Flat [CR] Stat Nasogastric Orogastric Tube Insertion [OM.PC] Stat 01/20/20 18:36 Gastrointestinal Tube Mgmt [RC] ASDIRECTED 01/20/20 18:38 Admission Status [Patient Status] [ADT] Stat
--- NOTE | 2020-01-20 18:22 | CT ---
TECHNIQUE: Noncontrast CT abdomen and pelvis. INDICATION: Abdominal pain. COMPARISON: 01/12/[address] FINDINGS: Large calcified granuloma in the inferior right middle lobe. Calcified right hilar lymph nodes. Coronary artery calcifications. Multiple metastases throughout the liver, unchanged. Numerous calcified hepatic and splenic granulomas. Trace right pleural effusion. Moderate ascites, increased from the prior exam. Diffuse subcutaneous edema is new. Extensive peritoneal carcinomatosis is unchanged. Cholecystectomy. Loops of fluid distended small bowel in the abdomen with transition point in the anterior pelvis in image 111 of series 201 compatible with persistent or recurrent small bowel obstruction. No free air. Soft tissue metastases in the anterior abdominal wall along the fascia as before. Large malignant pelvic mass is unchanged. IMPRESSION: 1. Persistent or recurrent small bowel obstruction with transition point in the anterior pelvis as before. 2. Extensive hepatic metastatic disease and peritoneal carcinomatosis. Soft tissue metastasis in the anterior abdominal wall. These findings are unchanged. 3. Mildly increased moderate ascites. New trace right pleural effusion and new extensive subcutaneous edema. 4. Stable malignant pelvic mass. Dictated by Jb Jain MD @ 01/20/2020 6:22:20 PM Please note that all CT scans at this facility use dose modulation, iterative reconstruction, and/or weight-based dosing when appropriate to reduce radiation dose to as low as reasonably achievable. Dictated by: Jb Jain MD @ 01/20/2020 18:22:29 (Electronically Signed)
[2020-01-20 18:39] LABS: BLOOD UREA NITROGEN,BUN 5 mg/dL (7.0-18.0); CARBON DIOXIDE,CO2 25.1 mmol/L (21.0-32.0); CHLORIDE,CL 99 mmol/L (98-107); GLUCOSE RANDOM 147 mg/dL (74-106); LIPASE 34 U/L (73-393); POTASSIUM,K 3.9 mmol/L (3.5-5.1); SODIUM,NA 135 mmol/L (136-145)
--- NOTE | 2020-01-20 19:30 | CR ---
NG tube insertion. KUB. Enteric tube within the stomach. Dictated by Mary Mason MD @ Jan 20 2020 7:28PM Signed by Dr. Mary Mason @ Jan 20 2020 7:28PM
[2020-01-20] MEDS ORDERED: fentaNYL 50 MCG/ML SDV IVPUSH ONE (19:45)
[2020-01-20] MEDS: Ondansetron 4 MG/2 ML SDV IVPUSH PRN (21:09)
[2020-01-20] MEDS: HYDROmorphone 1 MG/ML Syringe IVPUSH PRN ×2 (21:09→23:09)
[2020-01-20] MEDS: Heparin Sodium 5,000 Units/ML Vial SUBCUT SCH (22:09)
[2020-01-20] MEDS: Sodium Chloride 0.9% 1,000 ML IV SCH (22:09)
--- NOTE | 2020-01-20 22:13 | PCM.HP.2 ---
H&P History of Present Illness - General Date of Service: 01/20/20 Admit Problem/Dx: Admission Diagnosis/Problem Admission Diagnosis/Problem Small bowel obstruction - History of Present Illness Initial Comments - Free Text/Narative: Patient is a 59 year old female with a history of Stage IV colon cancer with mets to liver, peritoneum, and abdominal wall, HTN, CAD, Type II DM, and pacemaker who has had multiple admission for recurrent small bowel obstruction. She was discharge three day ago after being hospitalized for small bowel obstruction. Patient stats she had been doing ok until this afternoon when she developed severe abdominal pain nausea and vomiting. She reports last loose bowel movement was yesterday. She was passing gas this morning. Abdominal Pain Score (Numeric/FACES): 10 - Related Data Allergies/Adverse Reactions: Allergies Allergy/AdvReac Type Severity Reaction Status Date / Time hydrocodone Allergy Unknown Hives Verified 01/20/20 22:03 ibuprofen Allergy Unknown Hives Verified 01/20/20 22:03 morphine Allergy Unknown Seizure Verified 01/20/20 22:03 nitroglycerin Allergy Unknown Difficulty Verified 01/20/20 22:03 Breathing caffeine Allergy Vomiting Verified 01/20/20 22:03 cyanocobalamin (vitamin B12) Allergy Nausea and Verified 01/20/20 22:03 Vomiting diphenhydramine HCl Allergy Excitabilit Verified 01/20/20 22:03 [From Benadryl] y fentanyl Allergy Nausea Verified 01/20/20 22:03 pyridoxine Allergy Nausea and Verified 01/20/20 22:03 Vomiting vitamin B6 Allergy Other Uncoded 01/20/20 22:03 Home Medications: Home Meds metFORMIN [Glucophage] 1,000 mg PO BIDMEALS PRN 05/09/14 [History] LORazepam [Ativan] 1 mg PO BEDTIME PRN 12/26/15 [History] Insulin Glarg,Human.Rec.Analog [LantUS Solostar] 34 units SUBCUT BID PRN [History] Pantoprazole [ProTONIX] 40 mg PO . BEFORE SUPPER 08/06/17 [History] Insulin Aspart [NovoLOG] 14 unit SUBCUT TIDAC 02/04/18 [History] Loperamide [Imodium] 2 mg PO Q4H PRN MDD loose stool 07/20/18 [History] Loratadine [Claritin] 10 mg PO DAILY PRN 03/01/19 [History] atorvaSTATin Calcium [Lipitor] 80 mg PO DAILY 03/01/19 [History] Valsartan 160 mg PO DAILY 30 Days #30 tablet 03/02/19 [Rx] hydroCHLOROthiazide [Hydrochlorothiazide] 25 mg PO DAILY 30 Days #30 tablet [Rx] Diphenhyd/Lidocaine/Nystatin [Magic Mouthwash] 5 ml PO Q4H PRN MDD Oral Ulcers 11/01/19 [History] Magnesium Oxide 400 mg PO BID PRN 11/01/19 [History] bisacodyL [Dulcolax] 10 mg RECTAL DAILY PRN #30 supp 12/15/19 [Rx] Regorafenib [Stivarga] 160 mg PO BID 01/05/20 [History] amLODIPine [Norvasc] 5 mg PO DAILY 01/05/20 [History] Vancomycin 125 mg PO Q6HR #32 cap 01/08/20 [Rx] Potassium Chloride [Klor-Con M20] 40 meq PO DAILY PRN 01/12/20 [History] polyethylene glycoL 3350 [MiraLAX] 17 gm PO DAILY PRN 01/12/20 [History] Docusate Sodium/Sennosides [Senna Plus] 2 tab PO BEDTIME #60 tablet 01/17/20 [Rx ] HYDROmorphone [Dilaudid] 4 mg PO Q4HR PRN #30 tablet 01/17/20 [Rx] Ondansetron [Zofran ODT] 4 mg PO Q4HR PRN #30 tab.dis 01/17/20 [Rx] Prochlorperazine [Compazine] 10 mg PO TID PRN #30 tablet 01/17/20 [Rx] Past Medical History HEENT History: Reports: Impaired Vision Other HEENT History: wears glasses Cardiovascular History: Reports: CAD, High Cholesterol, Hypertension, Pacemaker Other Cardiovascular History: Pacer on Righ Side. Port on Left side. Respiratory History: Reports: Pneumothorax Gastrointestinal History: Reports: GERD Other Gastrointestinal History: hernia, colon CA Genitourinary History: Reports: UTI, Recurrent [employer] History: Reports: , Other (See Below) Other OB/BYN History: x2 Musculoskeletal History: Reports: None Neurological History: Reports: None Psychiatric History: Reports: Anxiety, Depression Endocrine/Metabolic History: Reports: Diabetes, Type II Hematologic History: Reports: None Immunologic History: Reports: None Oncologic (Cancer) History: Reports: Colon, Liver, Metastatic Dermatologic History: Reports: None - Infectious Disease History Infectious Disease History: Reports: C-Difficile, Measles Other Infectious Disease History: childhood - Past Surgical History HEENT Surgical History: Reports: Adenoidectomy, Tonsillectomy Cardiovascular Surgical History: Reports: None Respiratory Surgical History: Reports: Other (See Below) Other Respiratory Surgeries/Procedures: chest tube placements GI Surgical History: Reports: Cholecystectomy, Colon, Hernia Repair/Other Other GI Surgeries/Procedures: colectomy x2 Female Surgical History: Reports: Section, Hysterectomy, Salpingo- Oophorectomy Other Female Surgeries/Procedures: X2 Endocrine Surgical History: Reports: None Neurological Surgical History: Reports: None Musculoskeletal Surgical History: Reports: Other (See Below) Other Musculoskeletal Surgeries/Procedures:: rigth knee pain Oncologic Surgical History: Reports: Other (See Below) Other Oncologic Surgeries/Procedures: Patient currently on oral Chemo Dermatological Surgical History: Reports: None Social & Family History - Family History Family Medical History: Noncontributory GI: Reports: None - Tobacco Use Smoking Status *Q: Never Smoker - Caffeine Use Caffeine Use: Reports: None Caffeine Use Comment: allergic to caffeine - Recreational Drug Use Recreational Drug Use: No - Living Situation & Occupation Living situation: Reports: H&P Review of Systems - Review of Systems: Review Of Systems: Comprehensive ROS is negative, except as noted in HPI. Exam - Exam Exam: See Below - Vital Signs Vital Signs: Last Vital Signs Temp 36.8 C 01/20/20 20:36 Pulse 128 H 01/20/20 20:36 Resp 18 01/20/20 20:36 BP 140/82 01/20/20 20:36 Pulse Ox 98 01/20/20 20:36 Weight: 68.3 kg - Exam General: Alert, Oriented HEENT: Mucosa Moist & [place] Neck: Supple Lungs: Clear to Auscultation, Normal Respiratory Effort Cardiovascular: Regular Rate, Regular Rhythm GI/Abdominal Exam: Normal Bowel Sounds, Soft, No Distention Extremities: Non-Tender, No Pedal Edema Skin: Warm, Dry, Intact - Patient Data Lab Results Last 24 hrs: Laboratory Results - last 24 hr 01/20/20 01/20/20 01/20/20 Range/Units 18:02 18:02 18:02 WBC 8.10 (4.0-11.0) K/uL RBC 3.93 L (4.30-5.90) M/uL Hgb 11.9 L (12.0-16.0) g/dL Hct 35.9 L (36.0-46.0) % MCV 91.3 (80.0-98.0) fL MCH 30.3 (27.0-32.0) pg MCHC 33.1 (31.0-37.0) g/dL RDW Std Deviation 54.7 (28.0-62.0) fl RDW Coeff of Ej 16 H (11.0-15.0) % Plt Count 184 (150-400) K/uL MPV 9.30 (7.40-12.00) fL Neut % (Auto) 74.5 (48.0-80.0) % Lymph % (Auto) 13.2 L (16.0-40.0) % [place] % (Auto) 10.9 (0.0-15.0) % Eos % (Auto) 1.0 (0.0-7.0) % Baso % (Auto) 0.4 (0.0-1.5) % Neut # (Auto) 6.0 H (1.4-5.7) K/uL Lymph # (Auto) 1.1 (0.6-2.4) K/uL [place] # (Auto) 0.9 H (0.0-0.8) K/uL Eos # (Auto) 0.1 (0.0-0.7) K/uL Baso # (Auto) 0.0 (0.0-0.1) K/uL Nucleated RBC % 0.0 /100WBC Nucleated RBCs # 0 K/uL Lactate (0.20-2.00) mmol/L Sodium 135 L (136-145) mmol/L Potassium 3.9 (3.5-5.1) mmol/L Chloride 99 (98-107) mmol/L Carbon Dioxide 25.1 (21.0-32.0) mmol/L BUN 5 L (7.0-18.0) mg/dL Creatinine 0.8 (0.6-1.0) mg/dL Est Cr Clr Drug Dosing 60.62 mL/min Estimated GFR (MDRD) > 60.0 ml/min Glucose 147 H (74-106) mg/dL Calcium 7.9 L (8.5-10.1) mg/dL Total Bilirubin 1.1 H (0.2-1.0) mg/dL AST 30 (15-37) IU/L ALT 17 (14-63) IU/L Alkaline Phosphatase 216 H (46-116) U/L Troponin I < 0.050 (0.000-0.056) ng/mL Total Protein 6.4 (6.4-8.2) g/dL Albumin 2.8 L (3.4-5.0) g/dL Globulin 3.6 (2.6-4.0) g/dL Albumin/Globulin Ratio 0.8 L (0.9-1.6) Lipase 34 L (73-393) U/L Urine Color Urine Appearance Urine pH (5.0-8.0) Ur Specific [place] (1.001-1.035) Urine Protein (NEGATIVE) mg/dL Urine Glucose (UA) (NEGATIVE) mg/dL Urine Ketones (NEGATIVE) mg/dL Urine Occult Blood (NEGATIVE) Urine Nitrite (NEGATIVE) Urine Bilirubin (NEGATIVE) Urine Urobilinogen (<2.0) EU/dL Ur Leukocyte Esterase (NEGATIVE) Urine RBC (0-2/HPF) Urine WBC (0-5/HPF) Ur Epithelial Cells (NONE-FEW) Urine Bacteria (NEGATIVE) Urine Mucus (NONE-MOD) 01/20/20 01/20/20 Range/Units 18:02 19:58 WBC (4.0-11.0) K/uL RBC (4.30-5.90) M/uL Hgb (12.0-16.0) g/dL Hct (36.0-46.0) % MCV (80.0-98.0) fL MCH (27.0-32.0) pg MCHC (31.0-37.0) g/dL RDW Std Deviation (28.0-62.0) fl RDW Coeff of Ej (11.0-15.0) % Plt Count (150-400) K/uL MPV (7.40-12.00) fL Neut % (Auto) (48.0-80.0) % Lymph % (Auto) (16.0-40.0) % [place] % (Auto) (0.0-15.0) % Eos % (Auto) (0.0-7.0) % Baso % (Auto) (0.0-1.5) % Neut # (Auto) (1.4-5.7) K/uL Lymph # (Auto) (0.6-2.4) K/uL [place] # (Auto) (0.0-0.8) K/uL Eos # (Auto) (0.0-0.7) K/uL Baso # (Auto) (0.0-0.1) K/uL Nucleated RBC % /100WBC Nucleated RBCs # K/uL Lactate 0.8 (0.20-2.00) mmol/L Sodium (136-145) mmol/L Potassium (3.5-5.1) mmol/L Chloride (98-107) mmol/L Carbon Dioxide (21.0-32.0) mmol/L BUN (7.0-18.0) mg/dL Creatinine (0.6-1.0) mg/dL Est Cr Clr Drug Dosing mL/min Estimated GFR (MDRD) ml/min Glucose (74-106) mg/dL Calcium (8.5-10.1) mg/dL Total Bilirubin (0.2-1.0) mg/dL AST (15-37) IU/L ALT (14-63) IU/L Alkaline Phosphatase (46-116) U/L Troponin I (0.000-0.056) ng/mL Total Protein (6.4-8.2) g/dL Albumin (3.4-5.0) g/dL Globulin (2.6-4.0) g/dL Albumin/Globulin Ratio (0.9-1.6) Lipase (73-393) U/L Urine Color YELLOW Urine Appearance CLEAR Urine pH 7.0 (5.0-8.0) Ur Specific [place] 1.015 (1.001-1.035) Urine Protein NEGATIVE (NEGATIVE) mg/dL Urine Glucose (UA) NEGATIVE (NEGATIVE) mg/dL Urine Ketones 40 H (NEGATIVE) mg/dL Urine Occult Blood NEGATIVE (NEGATIVE) Urine Nitrite NEGATIVE (NEGATIVE) Urine Bilirubin NEGATIVE (NEGATIVE) Urine Urobilinogen 0.2 (<2.0) EU/dL Ur Leukocyte Esterase NEGATIVE (NEGATIVE) Urine RBC 0-1 (0-2/HPF) Urine WBC 1-3 (0-5/HPF) Ur Epithelial Cells RARE (NONE-FEW) Urine Bacteria RARE (NEGATIVE) Urine Mucus LIGHT (NONE-MOD) Result Diagrams: 01/21/20 06:10 01/21/20 06:10 Sepsis Event Note - Evaluation Sepsis Screening Result: No Definite Risk - Focused Exam Vital Signs: Vital Signs Temp Pulse Resp BP BP Pulse Ox Pulse Ox 01/20/20 20:36 36.8 C 128 H 18 140/82 98 98 01/20/20 19:17 36.6 C 108 H 20 155/82 H 98 01/20/20 17:45 36.3 C 99 17 148/88 H 98 Date Exam was Performed: 01/21/20 Time Exam was Performed: 11:24 Problem List Initiated/Reviewed/Updated: Yes Orders Last 24hrs: Active Orders 24 hr Category Date Time Status Admission Status [Patient Status] [ADT] Stat ADT 01/20/20 18:38 Active Antiembolic Devices [RC] PER UNIT ROUTINE Care 01/20/20 22:00 Active EKG 12 Lead [EKG Documentation Completion] [RC] STAT Care 01/20/20 17:44 Active Gastrointestinal Tube Mgmt [RC] ASDIRECTED Care 01/20/20 18:36 Active Oxygen Therapy [RC] PRN Care 01/20/20 21:59 Active VTE/DVT Education [RC] PER UNIT ROUTINE Care 01/20/20 21:59 Active Vital Signs [RC] Q4H Care 01/20/20 21:59 Active Nothing per Oral Now Diet [DIET] Diet 01/20/20 Breakfast Active CBC W/O DIFF,HEMOGRAM [HEME] AM Lab 01/21/20 05:11 Ordered CBC W/O DIFF,HEMOGRAM [HEME] AM Lab 01/22/20 05:11 Ordered COMPREHENSIVE METABOLIC PN,CMP [CHEM] AM Lab 01/21/20 05:11 Ordered COMPREHENSIVE METABOLIC PN,CMP [CHEM] AM Lab 01/22/20 05:11 Ordered HYDROmorphone [Dilaudid] Med 01/20/20 20:54 Active 1 mg IVPUSH Q2H PRN Heparin Sodium Med 01/20/20 22:00 Ordered 5,000 units SUBCUT Q8H Ondansetron [Zofran] Med 01/20/20 20:52 Active 4 mg IVPUSH Q4H PRN Promethazine [Phenergan] Med 01/20/20 21:59 Ordered 25 mg IM Q6H PRN Sodium Chloride 0.9% [Normal Saline] 1,000 ml Med 01/20/20 22:00 Ordered IV ASDIRECTED Sodium Chloride 0.9% [Saline Flush] Med 01/20/20 17:33 Active 10 ml FLUSH ASDIRECTED PRN Sodium Chloride 0.9% [Saline Flush] Med 01/20/20 17:33 Active 2.5 ml FLUSH ASDIRECTED PRN Nasogastric Orogastric Tube Insertion [OM.PC] Stat Ot 01/20/20 18:35 Ordered Saline Lock Insert [OM.PC] Stat Ot 01/20/20 17:33 Ordered Sequential Compression Device [OM.PC] Per Unit Routine Ot 01/20/20 21:59 Ordered Resuscitation Status Routine Resus Stat 01/20/20 21:59 Ordered Medication Orders Heparin Sodium (Porcine) (Heparin Sodium) 5,000 units SUBCUT Q8H MARIA T Hydromorphone HCl (Dilaudid) 1 mg IVPUSH Q2H PRN PRN Reason: Pain Last Admin: 01/20/20 21:09 Dose: 1 mg Sodium Chloride (Normal Saline) 1,000 mls @ 125 mls/hr IV ASDIRECTED MARIA T Ondansetron HCl (Zofran) 4 mg IVPUSH Q4H PRN PRN Reason: Nausea Last Admin: 01/20/20 21:09 Dose: 4 mg Promethazine HCl (Phenergan) 25 mg IM Q6H PRN PRN Reason: Nausea Sodium Chloride (Saline Flush) 10 ml FLUSH ASDIRECTED PRN PRN Reason: Keep Vein Open Last Admin: 01/20/20 18:02 Dose: 10 ml Sodium Chloride (Saline Flush) 2.5 ml FLUSH ASDIRECTED PRN PRN Reason: Keep Vein Open Last Admin: 01/20/20 18:02 Dose: 2.5 ml Assessment/Plan Comment:: 59 yo female with multiple recurrent small bowel obstructions due to metastatic colon cancer. Dr. Heart has been consulted. We will continue to treat medically with IV fluids, bowel rest, IV Dilaudid and prn antiemetics.
[2020-01-20] MEDS: LORazepam 2 MG/ML SDV IVPUSH PRN (23:35)
[2020-01-21] MEDS: HYDROmorphone 1 MG/ML Syringe IVPUSH PRN ×10 (01:57→22:09)
[2020-01-21] MEDS: Ondansetron 4 MG/2 ML SDV IVPUSH PRN ×5 (01:57→22:08)
[2020-01-21] MEDS: Sodium Chloride 0.9% 1,000 ML IV SCH ×3 (06:04→22:08)
[2020-01-21] MEDS: Heparin Sodium 5,000 Units/ML Vial SUBCUT SCH ×3 (06:05→22:08)
[2020-01-21 07:18] LABS: BLOOD UREA NITROGEN,BUN 5 mg/dL (7.0-18.0); CARBON DIOXIDE,CO2 24.9 mmol/L (21.0-32.0); CHLORIDE,CL 104 mmol/L (98-107); GLUCOSE RANDOM 115 mg/dL (74-106); POTASSIUM,K 3.4 mmol/L (3.5-5.1); SODIUM,NA 139 mmol/L (136-145)
--- NOTE | 2020-01-21 11:24 | PCM.PN ---
- General Info Date of Service: 01/21/20 - Review of Systems Systems Review Comment:: reports abdominal pain 06/13 - Patient Data Vitals - Most Recent: Last Vital Signs Temp 35.8 C L 01/21/20 07:05 Pulse 96 01/21/20 07:05 Resp 18 01/21/20 07:05 BP 147/77 H 01/21/20 07:05 Pulse Ox 96 01/21/20 07:05 Weight - Most Recent: 68.3 kg I&O - Last 24 Hours: Intake & Output 01/20/20 01/21/20 01/21/20 22:59 06:59 14:59 Intake Total 647 Output Total 1100 Balance -453 Lab Results Last 24 Hours: Laboratory Results - last 24 hr 01/20/20 01/20/20 01/20/20 Range/Units 18:02 18:02 18:02 WBC 8.10 (4.0-11.0) K/uL RBC 3.93 L (4.30-5.90) M/uL Hgb 11.9 L (12.0-16.0) g/dL Hct 35.9 L (36.0-46.0) % MCV 91.3 (80.0-98.0) fL MCH 30.3 (27.0-32.0) pg MCHC 33.1 (31.0-37.0) g/dL RDW Std Deviation 54.7 (28.0-62.0) fl RDW Coeff of Ej 16 H (11.0-15.0) % Plt Count 184 (150-400) K/uL MPV 9.30 (7.40-12.00) fL Neut % (Auto) 74.5 (48.0-80.0) % Lymph % (Auto) 13.2 L (16.0-40.0) % [place] % (Auto) 10.9 (0.0-15.0) % Eos % (Auto) 1.0 (0.0-7.0) % Baso % (Auto) 0.4 (0.0-1.5) % Neut # (Auto) 6.0 H (1.4-5.7) K/uL Lymph # (Auto) 1.1 (0.6-2.4) K/uL [place] # (Auto) 0.9 H (0.0-0.8) K/uL Eos # (Auto) 0.1 (0.0-0.7) K/uL Baso # (Auto) 0.0 (0.0-0.1) K/uL Nucleated RBC % 0.0 /100WBC Nucleated RBCs # 0 K/uL Lactate (0.20-2.00) mmol/L Sodium 135 L (136-145) mmol/L Potassium 3.9 (3.5-5.1) mmol/L Chloride 99 (98-107) mmol/L Carbon Dioxide 25.1 (21.0-32.0) mmol/L BUN 5 L (7.0-18.0) mg/dL Creatinine 0.8 (0.6-1.0) mg/dL Est Cr Clr Drug Dosing 60.62 mL/min Estimated GFR (MDRD) > 60.0 ml/min Glucose 147 H (74-106) mg/dL POC Glucose (60-110) mg/dL Calcium 7.9 L (8.5-10.1) mg/dL Total Bilirubin 1.1 H (0.2-1.0) mg/dL AST 30 (15-37) IU/L ALT 17 (14-63) IU/L Alkaline Phosphatase 216 H (46-116) U/L Troponin I < 0.050 (0.000-0.056) ng/mL Total Protein 6.4 (6.4-8.2) g/dL Albumin 2.8 L (3.4-5.0) g/dL Globulin 3.6 (2.6-4.0) g/dL Albumin/Globulin Ratio 0.8 L (0.9-1.6) Lipase 34 L (73-393) U/L Urine Color Urine Appearance Urine pH (5.0-8.0) Ur Specific [place] (1.001-1.035) Urine Protein (NEGATIVE) mg/dL Urine Glucose (UA) (NEGATIVE) mg/dL Urine Ketones (NEGATIVE) mg/dL Urine Occult Blood (NEGATIVE) Urine Nitrite (NEGATIVE) Urine Bilirubin (NEGATIVE) Urine Urobilinogen (<2.0) EU/dL Ur Leukocyte Esterase (NEGATIVE) Urine RBC (0-2/HPF) Urine WBC (0-5/HPF) Ur Epithelial Cells (NONE-FEW) Urine Bacteria (NEGATIVE) Urine Mucus (NONE-MOD) 01/20/20 01/20/20 01/21/20 Range/Units 18:02 19:58 06:07 WBC (4.0-11.0) K/uL RBC (4.30-5.90) M/uL Hgb (12.0-16.0) g/dL Hct (36.0-46.0) % MCV (80.0-98.0) fL MCH (27.0-32.0) pg MCHC (31.0-37.0) g/dL RDW Std Deviation (28.0-62.0) fl RDW Coeff of Ej (11.0-15.0) % Plt Count (150-400) K/uL MPV (7.40-12.00) fL Neut % (Auto) (48.0-80.0) % Lymph % (Auto) (16.0-40.0) % [place] % (Auto) (0.0-15.0) % Eos % (Auto) (0.0-7.0) % Baso % (Auto) (0.0-1.5) % Neut # (Auto) (1.4-5.7) K/uL Lymph # (Auto) (0.6-2.4) K/uL [place] # (Auto) (0.0-0.8) K/uL Eos # (Auto) (0.0-0.7) K/uL Baso # (Auto) (0.0-0.1) K/uL Nucleated RBC % /100WBC Nucleated RBCs # K/uL Lactate 0.8 (0.20-2.00) mmol/L Sodium (136-145) mmol/L Potassium (3.5-5.1) mmol/L Chloride (98-107) mmol/L Carbon Dioxide (21.0-32.0) mmol/L BUN (7.0-18.0) mg/dL Creatinine (0.6-1.0) mg/dL Est Cr Clr Drug Dosing mL/min Estimated GFR (MDRD) ml/min Glucose (74-106) mg/dL POC Glucose 105 (60-110) mg/dL Calcium (8.5-10.1) mg/dL Total Bilirubin (0.2-1.0) mg/dL AST (15-37) IU/L ALT (14-63) IU/L Alkaline Phosphatase (46-116) U/L Troponin I (0.000-0.056) ng/mL Total Protein (6.4-8.2) g/dL Albumin (3.4-5.0) g/dL Globulin (2.6-4.0) g/dL Albumin/Globulin Ratio (0.9-1.6) Lipase (73-393) U/L Urine Color YELLOW Urine Appearance CLEAR Urine pH 7.0 (5.0-8.0) Ur Specific [place] 1.015 (1.001-1.035) Urine Protein NEGATIVE (NEGATIVE) mg/dL Urine Glucose (UA) NEGATIVE (NEGATIVE) mg/dL Urine Ketones 40 H (NEGATIVE) mg/dL Urine Occult Blood NEGATIVE (NEGATIVE) Urine Nitrite NEGATIVE (NEGATIVE) Urine Bilirubin NEGATIVE (NEGATIVE) Urine Urobilinogen 0.2 (<2.0) EU/dL Ur Leukocyte Esterase NEGATIVE (NEGATIVE) Urine RBC 0-1 (0-2/HPF) Urine WBC 1-3 (0-5/HPF) Ur Epithelial Cells RARE (NONE-FEW) Urine Bacteria RARE (NEGATIVE) Urine Mucus LIGHT (NONE-MOD) 01/21/20 01/21/20 Range/Units 06:10 06:10 WBC 7.07 (4.0-11.0) K/uL RBC 3.55 L (4.30-5.90) M/uL Hgb 10.8 L (12.0-16.0) g/dL Hct 32.7 L (36.0-46.0) % MCV 92.1 (80.0-98.0) fL MCH 30.4 (27.0-32.0) pg MCHC 33.0 (31.0-37.0) g/dL RDW Std Deviation 55.2 (28.0-62.0) fl RDW Coeff of Ej 16 H (11.0-15.0) % Plt Count 186 (150-400) K/uL MPV 9.50 (7.40-12.00) fL Neut % (Auto) (48.0-80.0) % Lymph % (Auto) (16.0-40.0) % [place] % (Auto) (0.0-15.0) % Eos % (Auto) (0.0-7.0) % Baso % (Auto) (0.0-1.5) % Neut # (Auto) (1.4-5.7) K/uL Lymph # (Auto) (0.6-2.4) K/uL [place] # (Auto) (0.0-0.8) K/uL Eos # (Auto) (0.0-0.7) K/uL Baso # (Auto) (0.0-0.1) K/uL Nucleated RBC % 0.0 /100WBC Nucleated RBCs # 0 K/uL Lactate (0.20-2.00) mmol/L Sodium 139 (136-145) mmol/L Potassium 3.4 L (3.5-5.1) mmol/L Chloride 104 (98-107) mmol/L Carbon Dioxide 24.9 (21.0-32.0) mmol/L BUN 5 L (7.0-18.0) mg/dL Creatinine 0.7 (0.6-1.0) mg/dL Est Cr Clr Drug Dosing 69.28 mL/min Estimated GFR (MDRD) > 60.0 ml/min Glucose 115 H (74-106) mg/dL POC Glucose (60-110) mg/dL Calcium 7.2 L (8.5-10.1) mg/dL Total Bilirubin 0.8 (0.2-1.0) mg/dL AST 25 (15-37) IU/L ALT 14 (14-63) IU/L Alkaline Phosphatase 178 H (46-116) U/L Troponin I (0.000-0.056) ng/mL Total Protein 5.1 L (6.4-8.2) g/dL Albumin 2.2 L (3.4-5.0) g/dL Globulin 2.9 (2.6-4.0) g/dL Albumin/Globulin Ratio 0.8 L (0.9-1.6) Lipase (73-393) U/L Urine Color Urine Appearance Urine pH (5.0-8.0) Ur Specific [place] (1.001-1.035) Urine Protein (NEGATIVE) mg/dL Urine Glucose (UA) (NEGATIVE) mg/dL Urine Ketones (NEGATIVE) mg/dL Urine Occult Blood (NEGATIVE) Urine Nitrite (NEGATIVE) Urine Bilirubin (NEGATIVE) Urine Urobilinogen (<2.0) EU/dL Ur Leukocyte Esterase (NEGATIVE) Urine RBC (0-2/HPF) Urine WBC (0-5/HPF) Ur Epithelial Cells (NONE-FEW) Urine Bacteria (NEGATIVE) Urine Mucus (NONE-MOD) Med Orders - Current: Current Medications Heparin Sodium (Porcine) (Heparin Sodium) 5,000 units SUBCUT Q8H [facility] Last Admin: 01/21/20 06:05 Dose: 5,000 units Hydromorphone HCl (Dilaudid) 1 mg IVPUSH Q2H PRN PRN Reason: Pain Last Admin: 01/21/20 09:11 Dose: 1 mg Sodium Chloride (Normal Saline) 1,000 mls @ 125 mls/hr IV ASDIRECTED MARIA T Last Admin: 01/21/20 06:04 Dose: 125 mls/hr Lorazepam (Ativan) 1 mg IVPUSH Q8H PRN PRN Reason: Anxiety Last Admin: 01/20/20 23:35 Dose: 1 mg Ondansetron HCl (Zofran) 4 mg IVPUSH Q4H PRN PRN Reason: Nausea Last Admin: 01/21/20 06:09 Dose: 4 mg Promethazine HCl (Phenergan) 25 mg IM Q6H PRN PRN Reason: Nausea Sodium Chloride (Saline Flush) 10 ml FLUSH ASDIRECTED PRN PRN Reason: Keep Vein Open Last Admin: 01/20/20 18:02 Dose: 10 ml Sodium Chloride (Saline Flush) 2.5 ml FLUSH ASDIRECTED PRN PRN Reason: Keep Vein Open Last Admin: 01/20/20 18:02 Dose: 2.5 ml Discontinued Medications Fentanyl (Fentanyl) 25 mcg IVPUSH ONETIME ONE Stop: 01/20/20 19:46 Last Admin: 01/20/20 20:08 Dose: Not Given Sodium Chloride (Normal Saline) 1,000 mls @ 999 mls/hr IV BOLUS ONE Stop: 01/20/20 18:33 Last Infusion: 01/20/20 18:01 Dose: 500 mls/hr Ondansetron HCl (Zofran) 4 mg IVPUSH ONETIME ONE Stop: 01/20/20 17:34 Last Admin: 01/20/20 18:02 Dose: 4 mg - Exam General: Alert, Oriented HEENT: Mucous Membr. Moist/[place] Neck: Supple Lungs: Clear to Auscultation, Normal Respiratory Effort Cardiovascular: Regular Rate, Regular Rhythm GI/Abdominal Exam: Normal Bowel Sounds, Soft, Non-Tender, No Distention Extremities: Non-Tender, No Pedal Edema Skin: Warm, Dry, Intact Sepsis Event Note - Evaluation Sepsis Screening Result: No Definite Risk - Focused Exam Vital Signs: Vital Signs Temp Pulse Resp BP Pulse Ox 01/21/20 07:05 35.8 C L 96 18 147/77 H 96 01/21/20 03:24 36.4 C 95 18 147/82 H 98 Date Exam was Performed: 01/21/20 Time Exam was Performed: 11:20 - Problem List Review Problem List Initiated/Reviewed/Updated: Yes - My Orders Last 24 Hours: My Active Orders 01/20/20 20:52 Ondansetron [Zofran] 4 mg IVPUSH Q4H PRN 01/20/20 20:54 HYDROmorphone [Dilaudid] 1 mg IVPUSH Q2H PRN 01/20/20 21:59 Oxygen Therapy [RC] PRN VTE/DVT Education [RC] PER UNIT ROUTINE Vital Signs [RC] Q4H Promethazine [Phenergan] 25 mg IM Q6H PRN Sequential Compression Device [OM.PC] Per Unit Routine Resuscitation Status Routine 01/20/20 22:00 Antiembolic Devices [RC] PER UNIT ROUTINE Heparin Sodium 5,000 units SUBCUT Q8H Sodium Chloride 0.9% [Normal Saline] 1,000 ml IV ASDIRECTED 01/20/20 23:23 LORazepam [Ativan] 1 mg IVPUSH Q8H PRN 01/21/20 12:00 POC Glucose [Blood Glucose Check, Bedside] [RC] Q6H 01/22/20 05:11 CBC W/O DIFF,HEMOGRAM [HEME] AM COMPREHENSIVE METABOLIC PN,CMP [CHEM] AM - Plan Plan:: 59 yo female with multiple recurrent small bowel obstructions due to metastatic colon cancer. Dr. Heart has been consulted. We will continue NG tube, and pain control with IV Dilaudid with antiemetics. Patient is beginning to voice acceptance of her poor prognosis. We will continue palliative efforts.
--- NOTE | 2020-01-21 12:31 | PCM.SURGPN ---
- General Info Date of Service: 01/21/20 Functional Status: Reports: Pain Controlled (pain slightly better, got some sleep overnight, nausea improved) - Patient Data Vitals - Most Recent: Last Vital Signs Temp 98.2 F 01/21/20 11:00 Pulse 94 01/21/20 11:00 Resp 17 01/21/20 11:00 BP 137/77 01/21/20 11:00 Pulse Ox 97 01/21/20 11:00 Weight - Most Recent: 150 lb 9.211 oz I&O - Last 24 Hours: Intake & Output 01/20/20 01/21/20 01/21/20 22:59 06:59 14:59 Intake Total 647 Output Total 1100 Balance -453 Lab Results Last 24 Hrs: Laboratory Results - last 24 hr 01/20/20 01/20/20 01/20/20 Range/Units 18:02 18:02 18:02 WBC 8.10 (4.0-11.0) K/uL RBC 3.93 L (4.30-5.90) M/uL Hgb 11.9 L (12.0-16.0) g/dL Hct 35.9 L (36.0-46.0) % MCV 91.3 (80.0-98.0) fL MCH 30.3 (27.0-32.0) pg MCHC 33.1 (31.0-37.0) g/dL RDW Std Deviation 54.7 (28.0-62.0) fl RDW Coeff of Ej 16 H (11.0-15.0) % Plt Count 184 (150-400) K/uL MPV 9.30 (7.40-12.00) fL Neut % (Auto) 74.5 (48.0-80.0) % Lymph % (Auto) 13.2 L (16.0-40.0) % Steele % (Auto) 10.9 (0.0-15.0) % Eos % (Auto) 1.0 (0.0-7.0) % Baso % (Auto) 0.4 (0.0-1.5) % Neut # (Auto) 6.0 H (1.4-5.7) K/uL Lymph # (Auto) 1.1 (0.6-2.4) K/uL Steele # (Auto) 0.9 H (0.0-0.8) K/uL Eos # (Auto) 0.1 (0.0-0.7) K/uL Baso # (Auto) 0.0 (0.0-0.1) K/uL Nucleated RBC % 0.0 /100WBC Nucleated RBCs # 0 K/uL Lactate (0.20-2.00) mmol/L Sodium 135 L (136-145) mmol/L Potassium 3.9 (3.5-5.1) mmol/L Chloride 99 (98-107) mmol/L Carbon Dioxide 25.1 (21.0-32.0) mmol/L BUN 5 L (7.0-18.0) mg/dL Creatinine 0.8 (0.6-1.0) mg/dL Est Cr Clr Drug Dosing 60.62 mL/min Estimated GFR (MDRD) > 60.0 ml/min Glucose 147 H (74-106) mg/dL POC Glucose (60-110) mg/dL Calcium 7.9 L (8.5-10.1) mg/dL Total Bilirubin 1.1 H (0.2-1.0) mg/dL AST 30 (15-37) IU/L ALT 17 (14-63) IU/L Alkaline Phosphatase 216 H (46-116) U/L Troponin I < 0.050 (0.000-0.056) ng/mL Total Protein 6.4 (6.4-8.2) g/dL Albumin 2.8 L (3.4-5.0) g/dL Globulin 3.6 (2.6-4.0) g/dL Albumin/Globulin Ratio 0.8 L (0.9-1.6) Lipase 34 L (73-393) U/L Urine Color Urine Appearance Urine pH (5.0-8.0) Ur Specific Lisco (1.001-1.035) Urine Protein (NEGATIVE) mg/dL Urine Glucose (UA) (NEGATIVE) mg/dL Urine Ketones (NEGATIVE) mg/dL Urine Occult Blood (NEGATIVE) Urine Nitrite (NEGATIVE) Urine Bilirubin (NEGATIVE) Urine Urobilinogen (<2.0) EU/dL Ur Leukocyte Esterase (NEGATIVE) Urine RBC (0-2/HPF) Urine WBC (0-5/HPF) Ur Epithelial Cells (NONE-FEW) Urine Bacteria (NEGATIVE) Urine Mucus (NONE-MOD) 01/20/20 01/20/20 01/21/20 Range/Units 18:02 19:58 06:07 WBC (4.0-11.0) K/uL RBC (4.30-5.90) M/uL Hgb (12.0-16.0) g/dL Hct (36.0-46.0) % MCV (80.0-98.0) fL MCH (27.0-32.0) pg MCHC (31.0-37.0) g/dL RDW Std Deviation (28.0-62.0) fl RDW Coeff of Ej (11.0-15.0) % Plt Count (150-400) K/uL MPV (7.40-12.00) fL Neut % (Auto) (48.0-80.0) % Lymph % (Auto) (16.0-40.0) % Steele % (Auto) (0.0-15.0) % Eos % (Auto) (0.0-7.0) % Baso % (Auto) (0.0-1.5) % Neut # (Auto) (1.4-5.7) K/uL Lymph # (Auto) (0.6-2.4) K/uL Steele # (Auto) (0.0-0.8) K/uL Eos # (Auto) (0.0-0.7) K/uL Baso # (Auto) (0.0-0.1) K/uL Nucleated RBC % /100WBC Nucleated RBCs # K/uL Lactate 0.8 (0.20-2.00) mmol/L Sodium (136-145) mmol/L Potassium (3.5-5.1) mmol/L Chloride (98-107) mmol/L Carbon Dioxide (21.0-32.0) mmol/L BUN (7.0-18.0) mg/dL Creatinine (0.6-1.0) mg/dL Est Cr Clr Drug Dosing mL/min Estimated GFR (MDRD) ml/min Glucose (74-106) mg/dL POC Glucose 105 (60-110) mg/dL Calcium (8.5-10.1) mg/dL Total Bilirubin (0.2-1.0) mg/dL AST (15-37) IU/L ALT (14-63) IU/L Alkaline Phosphatase (46-116) U/L Troponin I (0.000-0.056) ng/mL Total Protein (6.4-8.2) g/dL Albumin (3.4-5.0) g/dL Globulin (2.6-4.0) g/dL Albumin/Globulin Ratio (0.9-1.6) Lipase (73-393) U/L Urine Color YELLOW Urine Appearance CLEAR Urine pH 7.0 (5.0-8.0) Ur Specific Lisco 1.015 (1.001-1.035) Urine Protein NEGATIVE (NEGATIVE) mg/dL Urine Glucose (UA) NEGATIVE (NEGATIVE) mg/dL Urine Ketones 40 H (NEGATIVE) mg/dL Urine Occult Blood NEGATIVE (NEGATIVE) Urine Nitrite NEGATIVE (NEGATIVE) Urine Bilirubin NEGATIVE (NEGATIVE) Urine Urobilinogen 0.2 (<2.0) EU/dL Ur Leukocyte Esterase NEGATIVE (NEGATIVE) Urine RBC 0-1 (0-2/HPF) Urine WBC 1-3 (0-5/HPF) Ur Epithelial Cells RARE (NONE-FEW) Urine Bacteria RARE (NEGATIVE) Urine Mucus LIGHT (NONE-MOD) 01/21/20 01/21/20 01/21/20 Range/Units 06:10 06:10 11:28 WBC 7.07 (4.0-11.0) K/uL RBC 3.55 L (4.30-5.90) M/uL Hgb 10.8 L (12.0-16.0) g/dL Hct 32.7 L (36.0-46.0) % MCV 92.1 (80.0-98.0) fL MCH 30.4 (27.0-32.0) pg MCHC 33.0 (31.0-37.0) g/dL RDW Std Deviation 55.2 (28.0-62.0) fl RDW Coeff of Ej 16 H (11.0-15.0) % Plt Count 186 (150-400) K/uL MPV 9.50 (7.40-12.00) fL Neut % (Auto) (48.0-80.0) % Lymph % (Auto) (16.0-40.0) % Steele % (Auto) (0.0-15.0) % Eos % (Auto) (0.0-7.0) % Baso % (Auto) (0.0-1.5) % Neut # (Auto) (1.4-5.7) K/uL Lymph # (Auto) (0.6-2.4) K/uL Steele # (Auto) (0.0-0.8) K/uL Eos # (Auto) (0.0-0.7) K/uL Baso # (Auto) (0.0-0.1) K/uL Nucleated RBC % 0.0 /100WBC Nucleated RBCs # 0 K/uL Lactate (0.20-2.00) mmol/L Sodium 139 (136-145) mmol/L Potassium 3.4 L (3.5-5.1) mmol/L Chloride 104 (98-107) mmol/L Carbon Dioxide 24.9 (21.0-32.0) mmol/L BUN 5 L (7.0-18.0) mg/dL Creatinine 0.7 (0.6-1.0) mg/dL Est Cr Clr Drug Dosing 69.28 mL/min Estimated GFR (MDRD) > 60.0 ml/min Glucose 115 H (74-106) mg/dL POC Glucose 110 (60-110) mg/dL Calcium 7.2 L (8.5-10.1) mg/dL Total Bilirubin 0.8 (0.2-1.0) mg/dL AST 25 (15-37) IU/L ALT 14 (14-63) IU/L Alkaline Phosphatase 178 H (46-116) U/L Troponin I (0.000-0.056) ng/mL Total Protein 5.1 L (6.4-8.2) g/dL Albumin 2.2 L (3.4-5.0) g/dL Globulin 2.9 (2.6-4.0) g/dL Albumin/Globulin Ratio 0.8 L (0.9-1.6) Lipase (73-393) U/L Urine Color Urine Appearance Urine pH (5.0-8.0) Ur Specific Lisco (1.001-1.035) Urine Protein (NEGATIVE) mg/dL Urine Glucose (UA) (NEGATIVE) mg/dL Urine Ketones (NEGATIVE) mg/dL Urine Occult Blood (NEGATIVE) Urine Nitrite (NEGATIVE) Urine Bilirubin (NEGATIVE) Urine Urobilinogen (<2.0) EU/dL Ur Leukocyte Esterase (NEGATIVE) Urine RBC (0-2/HPF) Urine WBC (0-5/HPF) Ur Epithelial Cells (NONE-FEW) Urine Bacteria (NEGATIVE) Urine Mucus (NONE-MOD) Med Orders - Current: Current Medications Heparin Sodium (Porcine) (Heparin Sodium) 5,000 units SUBCUT Q8H [facility] T Last Admin: 01/21/20 06:05 Dose: 5,000 units Hydromorphone HCl (Dilaudid) 1 mg IVPUSH Q2H PRN PRN Reason: Pain Last Admin: 01/21/20 11:27 Dose: 1 mg Sodium Chloride (Normal Saline) 1,000 mls @ 125 mls/hr IV ASDIRECTED MARIA T Last Admin: 01/21/20 06:04 Dose: 125 mls/hr Lorazepam (Ativan) 1 mg IVPUSH Q8H PRN PRN Reason: Anxiety Last Admin: 01/20/20 23:35 Dose: 1 mg Ondansetron HCl (Zofran) 4 mg IVPUSH Q4H PRN PRN Reason: Nausea Last Admin: 01/21/20 11:27 Dose: 4 mg Promethazine HCl (Phenergan) 25 mg IM Q6H PRN PRN Reason: Nausea Sodium Chloride (Saline Flush) 10 ml FLUSH ASDIRECTED PRN PRN Reason: Keep Vein Open Last Admin: 01/20/20 18:02 Dose: 10 ml Sodium Chloride (Saline Flush) 2.5 ml FLUSH ASDIRECTED PRN PRN Reason: Keep Vein Open Last Admin: 01/20/20 18:02 Dose: 2.5 ml Discontinued Medications Fentanyl (Fentanyl) 25 mcg IVPUSH ONETIME ONE Stop: 01/20/20 19:46 Last Admin: 01/20/20 20:08 Dose: Not Given Sodium Chloride (Normal Saline) 1,000 mls @ 999 mls/hr IV BOLUS ONE Stop: 01/20/20 18:33 Last Infusion: 01/20/20 18:01 Dose: 500 mls/hr Ondansetron HCl (Zofran) 4 mg IVPUSH ONETIME ONE Stop: 01/20/20 17:34 Last Admin: 01/20/20 18:02 Dose: 4 mg - Exam GI/Abdominal Exam: No Distention (abd mass at midline abd persisted;) Sepsis Event Note - Evaluation Sepsis Screening Result: No Definite Risk - Focused Exam Vital Signs: Vital Signs Temp Pulse Resp BP Pulse Ox 01/21/20 11:00 98.2 F 94 17 137/77 97 01/21/20 07:05 96.5 F L 96 18 147/77 H 96 01/21/20 03:24 97.5 F 95 18 147/82 H 98 Date Exam was Performed: 01/21/20 Time Exam was Performed: 12:29 - Problem List Review Problem List Initiated/Reviewed/Updated: Yes - My Orders Last 24 Hours: Active Orders 24 hr Category Date Time Status Admission Status [Patient Status] [ADT] Stat ADT 01/20/20 18:38 Active Antiembolic Devices [RC] PER UNIT ROUTINE Care 01/20/20 22:00 Active EKG 12 Lead [EKG Documentation Completion] [RC] STAT Care 01/20/20 17:44 Active Gastrointestinal Tube Mgmt [RC] ASDIRECTED Care 01/20/20 18:36 Active Oxygen Therapy [RC] PRN Care 01/20/20 21:59 Active POC Glucose [Blood Glucose Check, Bedside] [RC] Q6H Care 01/21/20 12:00 Active VTE/DVT Education [RC] PER UNIT ROUTINE Care 01/20/20 21:59 Active Vital Signs [RC] Q4H Care 01/20/20 21:59 Active CBC W/O DIFF,HEMOGRAM [HEME] AM Lab 01/22/20 05:11 Ordered COMPREHENSIVE METABOLIC PN,CMP [CHEM] AM Lab 01/22/20 05:11 Ordered HYDROmorphone [Dilaudid] Med 01/20/20 20:54 Active 1 mg IVPUSH Q2H PRN Heparin Sodium Med 01/20/20 22:00 Active 5,000 units SUBCUT Q8H LORazepam [Ativan] Med 01/20/20 23:23 Active 1 mg IVPUSH Q8H PRN Ondansetron [Zofran] Med 01/20/20 20:52 Active 4 mg IVPUSH Q4H PRN Promethazine [Phenergan] Med 01/20/20 21:59 Active 25 mg IM Q6H PRN Sodium Chloride 0.9% [Normal Saline] 1,000 ml Med 01/20/20 22:00 Active IV ASDIRECTED Sodium Chloride 0.9% [Saline Flush] Med 01/20/20 17:33 Active 10 ml FLUSH ASDIRECTED PRN Sodium Chloride 0.9% [Saline Flush] Med 01/20/20 17:33 Active 2.5 ml FLUSH ASDIRECTED PRN Nasogastric Orogastric Tube Insertion [OM.PC] Stat Ot 01/20/20 18:35 Ordered Saline Lock Insert [OM.PC] Stat Oth 01/20/20 17:33 Ordered Sequential Compression Device [OM.PC] Per Unit Routine Oth 01/20/20 21:59 Ordered Resuscitation Status Routine Resus Stat 01/20/20 21:59 Ordered Medication Orders Heparin Sodium (Porcine) (Heparin Sodium) 5,000 units SUBCUT Q8H [facility] Last Admin: 01/21/20 06:05 Dose: 5,000 units Admin: 01/20/20 22:09 Dose: 5,000 units Hydromorphone HCl (Dilaudid) 1 mg IVPUSH Q2H PRN PRN Reason: Pain Last Admin: 01/21/20 11:27 Dose: 1 mg Admin: 01/21/20 09:11 Dose: 1 mg Admin: 01/21/20 07:08 Dose: 1 mg Admin: 01/21/20 04:40 Dose: 1 mg Admin: 01/21/20 01:57 Dose: 1 mg Admin: 01/20/20 23:09 Dose: 1 mg Admin: 01/20/20 21:09 Dose: 1 mg Sodium Chloride (Normal Saline) 1,000 mls @ 125 mls/hr IV ASDIRECTED MARIA T Last Admin: 01/21/20 06:04 Dose: 125 mls/hr Infusion: 01/21/20 06:04 Dose: 125 mls/hr Admin: 01/20/20 22:09 Dose: 125 mls/hr Lorazepam (Ativan) 1 mg IVPUSH Q8H PRN PRN Reason: Anxiety Last Admin: 01/20/20 23:35 Dose: 1 mg Ondansetron HCl (Zofran) 4 mg IVPUSH Q4H PRN PRN Reason: Nausea Last Admin: 01/21/20 11:27 Dose: 4 mg Admin: 01/21/20 06:09 Dose: 4 mg Admin: 01/21/20 01:57 Dose: 4 mg Admin: 01/20/20 21:09 Dose: 4 mg Promethazine HCl (Phenergan) 25 mg IM Q6H PRN PRN Reason: Nausea Sodium Chloride (Saline Flush) 10 ml FLUSH ASDIRECTED PRN PRN Reason: Keep Vein Open Last Admin: 01/20/20 18:02 Dose: 10 ml Sodium Chloride (Saline Flush) 2.5 ml FLUSH ASDIRECTED PRN PRN Reason: Keep Vein Open Last Admin: 01/20/20 18:02 Dose: 2.5 ml - Assessment Assessment (Free Text/Narrative):: clinically improved; ngt output 300; wbc 7; continue present management; await bowel function - Plan Plan (Free Text/Narrative):: clinically improved; ngt output 300; wbc 7; continue present management; await bowel function
[2020-01-22] MEDS: HYDROmorphone 1 MG/ML Syringe IVPUSH PRN ×10 (00:15→22:21)
[2020-01-22] MEDS: Ondansetron 4 MG/2 ML SDV IVPUSH PRN (02:20)
[2020-01-22] MEDS: Promethazine 25 MG/ML SDV IM PRN ×3 (04:30→20:12)
[2020-01-22] MEDS: Heparin Sodium 5,000 Units/ML Vial SUBCUT SCH ×3 (05:51→21:15)
[2020-01-22] MEDS: Sodium Chloride 0.9% 1,000 ML IV SCH ×2 (05:53→21:15)
[2020-01-22 06:50] LABS: BLOOD UREA NITROGEN,BUN 4 mg/dL (7.0-18.0); CARBON DIOXIDE,CO2 22.5 mmol/L (21.0-32.0); CHLORIDE,CL 104 mmol/L (98-107); GLUCOSE RANDOM 91 mg/dL (74-106); POTASSIUM,K 3.2 mmol/L (3.5-5.1); SODIUM,NA 139 mmol/L (136-145)
[2020-01-22] MEDS ORDERED: Magnesium Sulfate 4 GM in Sodium Chloride 0.9% with KCl 1,000 ML IV ONE (08:28)
--- NOTE | 2020-01-22 09:30 | CONS ---
DATE OF CONSULTATION: 01/20/2020 DATE OF : 1960 PRIMARY CARE PHYSICIAN: None PCP REASON FOR CONSULTATION: Consult was called, the patient was seen shortly after. Concerning question is small bowel obstruction. HISTORY OF PRESENT ILLNESS: The patient is a 59-year-old lady, complained of worsening nausea and vomiting at home, and seen in the emergency room. CAT scan shows SBO with a transition point. The patient was admitted to the hospital for further management. The patient has a long history of stage IV colon cancer, metastatic to liver, peritoneum, abdominal wall, and also with comorbidity of hypertension, coronary artery disease, diabetic, history of C diff colitis, and pacemaker placement. This is the patient's 6th admission since October for similar symptoms. The patient had increasing pain, nausea, and vomiting, and treated with NG tube and sent home. The patient remarked that, when staying at home for the last 2 days, she was more or less doing fine and then pain increased and nausea increased, so sought help in the emergency room. PAST MEDICAL HISTORY: Significant for diabetic, hypertension, coronary artery disease, and colon stage IV cancer. PAST SURGICAL HISTORY: Chest tube placement to the right side and pacemaker placement. ALLERGIES: Please refer to nursing for details. MEDICATION: Please refer to nursing for details. FAMILY HISTORY: Noncontributory. PHYSICAL EXAMINATION: GENERAL: The patient is lying in the bed with NG tube and still feeling nauseated. HEENT: Significant for normocephalic, atraumatic. Sclerae anicteric. LUNGS: Clear to auscultation, a bit diminished on the right side breath sounds. HEART: Regular rate and rhythm. ABDOMEN: Distended, but soft with palpable mass on the midline from epigastrium to umbilicus and with minimal tenderness. Surgical midline incision. Diminished bowel sounds. There are no high-pitched bowel sounds. LABORATORY DATA: Whereupon consultation; white count was 8, H and H were 12 and 36, platelet was 184,000. INR was 0.9 and dimer was 5.7, lactate is 0.8. Sodium and potassium 135 and 3.9, BUN is 5, creatinine is 0.8, glucose is 147, magnesium is 1.9, and T bilirubin is 1.1. AST and ALT of 30 and 17, alkaline phosphatase is 216. BNP 7. CT report, multiple metastases throughout the liver and with moderate ascites increased, loops of fluid distended small bowel in abdomen and the anterior pelvis consistent with persistence of recurrent small bowel obstruction. No free air. Large malignant pelvic mass, unchanged. IMPRESSION: Advanced stage of stage IV colon cancer with another bout of recurrent small- bowel obstruction. The patient is not clear whether she would like to have surgery at her stage. I made it very clear to the patient the surgery intervention is mainly trying to increase her quality of life if it worked, and it is not to cure her disease, and with her current situation and comorbidity of coronary artery disease, diabetic, hypertension, and advanced cancer stage with ascites, if she preferred to have surgery, probably will need to be transferred to a higher level of care, where they have fellowship-trained colorectal surgeon. The patient is not a surgical candidate in this hospital, and her prognosis poor. The patient voiced understanding. We will follow the patient with you. For the time being, conservative management, NG tube, pain management as you are doing. As always, thank you for the kind referral. KEVAN HANNA /[id number] MIRTA
--- NOTE | 2020-01-22 11:15 | PCM.PN ---
- General Info Date of Service: 01/22/20 Admission Dx/Problem (Free Text): Admission Diagnosis/Problem Admission Diagnosis/Problem Small bowel obstruction Subjective Update: Continues to have nausea and intermittent pain, 06/13. No chest pain or SOB. Feels weak. Functional Status: Reports: Ambulating, Urinating. Denies: Pain Controlled, Tolerating Diet - Review of Systems General: Reports: No Symptoms. Denies: Fever, Weakness, Fatigue HEENT: Reports: No Symptoms. Denies: Headaches, Sore Throat, Visual Changes Pulmonary: Reports: No Symptoms. Denies: Shortness of Breath Cardiovascular: Reports: No Symptoms. Denies: Chest Pain Gastrointestinal: Reports: No Symptoms. Denies: Abdominal Pain, Nausea, Vomiting Genitourinary: Reports: No Symptoms. Denies: Dysuria, Frequency, Burning Musculoskeletal: Reports: No Symptoms Skin: Reports: Pallor Neurological: Reports: No Symptoms Psychiatric: Reports: No Symptoms - Patient Data Vitals - Most Recent: Last Vital Signs Temp 97.3 F 01/22/20 07:53 Pulse 87 01/22/20 07:53 Resp 16 01/22/20 07:53 BP 141/80 H 01/22/20 07:53 Pulse Ox 93 L 01/22/20 07:53 Weight - Most Recent: 68.3 kg I&O - Last 24 Hours: Intake & Output 01/21/20 01/22/20 01/22/20 22:59 06:59 14:59 Intake Total 1495 1556 Output Total 500 700 Balance 995 856 Lab Results Last 24 Hours: Laboratory Results - last 24 hr 01/21/20 01/21/20 01/22/20 Range/Units 11:28 17:55 00:16 WBC (4.0-11.0) K/uL RBC (4.30-5.90) M/uL Hgb (12.0-16.0) g/dL Hct (36.0-46.0) % MCV (80.0-98.0) fL MCH (27.0-32.0) pg MCHC (31.0-37.0) g/dL RDW Std Deviation (28.0-62.0) fl RDW Coeff of Ej (11.0-15.0) % Plt Count (150-400) K/uL MPV (7.40-12.00) fL Nucleated RBC % /100WBC Nucleated RBCs # K/uL Sodium (136-145) mmol/L Potassium (3.5-5.1) mmol/L Chloride (98-107) mmol/L Carbon Dioxide (21.0-32.0) mmol/L BUN (7.0-18.0) mg/dL Creatinine (0.6-1.0) mg/dL Est Cr Clr Drug Dosing mL/min Estimated GFR (MDRD) ml/min Glucose (74-106) mg/dL POC Glucose 110 104 96 (60-110) mg/dL Calcium (8.5-10.1) mg/dL Magnesium (1.8-2.4) mg/dL Total Bilirubin (0.2-1.0) mg/dL AST (15-37) IU/L ALT (14-63) IU/L Alkaline Phosphatase (46-116) U/L Total Protein (6.4-8.2) g/dL Albumin (3.4-5.0) g/dL Globulin (2.6-4.0) g/dL Albumin/Globulin Ratio (0.9-1.6) 01/22/20 01/22/20 01/22/20 Range/Units 05:49 05:50 05:50 WBC 7.02 (4.0-11.0) K/uL RBC 3.50 L (4.30-5.90) M/uL Hgb 10.3 L (12.0-16.0) g/dL Hct 32.6 L (36.0-46.0) % MCV 93.1 (80.0-98.0) fL MCH 29.4 (27.0-32.0) pg MCHC 31.6 (31.0-37.0) g/dL RDW Std Deviation 57.1 (28.0-62.0) fl RDW Coeff of Ej 17 H (11.0-15.0) % Plt Count 181 (150-400) K/uL MPV 9.20 (7.40-12.00) fL Nucleated RBC % 0.0 /100WBC Nucleated RBCs # 0 K/uL Sodium 139 (136-145) mmol/L Potassium 3.2 L (3.5-5.1) mmol/L Chloride 104 (98-107) mmol/L Carbon Dioxide 22.5 (21.0-32.0) mmol/L BUN 4 L (7.0-18.0) mg/dL Creatinine 0.7 (0.6-1.0) mg/dL Est Cr Clr Drug Dosing 69.28 mL/min Estimated GFR (MDRD) > 60.0 ml/min Glucose 91 (74-106) mg/dL POC Glucose 90 (60-110) mg/dL Calcium 7.1 L (8.5-10.1) mg/dL Magnesium (1.8-2.4) mg/dL Total Bilirubin 0.9 (0.2-1.0) mg/dL AST 24 (15-37) IU/L ALT 13 L (14-63) IU/L Alkaline Phosphatase 161 H (46-116) U/L Total Protein 5.0 L (6.4-8.2) g/dL Albumin 2.1 L (3.4-5.0) g/dL Globulin 2.9 (2.6-4.0) g/dL Albumin/Globulin Ratio 0.7 L (0.9-1.6) 01/22/20 Range/Units 05:50 WBC (4.0-11.0) K/uL RBC (4.30-5.90) M/uL Hgb (12.0-16.0) g/dL Hct (36.0-46.0) % MCV (80.0-98.0) fL MCH (27.0-32.0) pg MCHC (31.0-37.0) g/dL RDW Std Deviation (28.0-62.0) fl RDW Coeff of Ej (11.0-15.0) % Plt Count (150-400) K/uL MPV (7.40-12.00) fL Nucleated RBC % /100WBC Nucleated RBCs # K/uL Sodium (136-145) mmol/L Potassium (3.5-5.1) mmol/L Chloride (98-107) mmol/L Carbon Dioxide (21.0-32.0) mmol/L BUN (7.0-18.0) mg/dL Creatinine (0.6-1.0) mg/dL Est Cr Clr Drug Dosing mL/min Estimated GFR (MDRD) ml/min Glucose (74-106) mg/dL POC Glucose (60-110) mg/dL Calcium (8.5-10.1) mg/dL Magnesium 1.5 L (1.8-2.4) mg/dL Total Bilirubin (0.2-1.0) mg/dL AST (15-37) IU/L ALT (14-63) IU/L Alkaline Phosphatase (46-116) U/L Total Protein (6.4-8.2) g/dL Albumin (3.4-5.0) g/dL Globulin (2.6-4.0) g/dL Albumin/Globulin Ratio (0.9-1.6) Med Orders - Current: Current Medications Heparin Sodium (Porcine) (Heparin Sodium) 5,000 units SUBCUT Q8H [facility] Last Admin: 01/22/20 05:51 Dose: 5,000 units Hydromorphone HCl (Dilaudid) 1 mg IVPUSH Q2H PRN PRN Reason: Pain Last Admin: 01/22/20 09:23 Dose: 1 mg Sodium Chloride (Normal Saline) 1,000 mls @ 125 mls/hr IV ASDIRECTED [facility] Last Admin: 01/22/20 05:53 Dose: 125 mls/hr Magnesium Sulfate 4 gm/Potassium Chloride/Sodium Chloride 1,008 mls @ 125 mls/ hr IV ONETIME ONE Stop: 01/22/20 16:31 Last Admin: 01/22/20 09:27 Dose: 125 mls/hr Lorazepam (Ativan) 1 mg IVPUSH Q8H PRN PRN Reason: Anxiety Last Admin: 01/20/20 23:35 Dose: 1 mg Ondansetron HCl (Zofran) 4 mg IVPUSH Q4H PRN PRN Reason: Nausea Last Admin: 01/22/20 02:20 Dose: 4 mg Promethazine HCl (Phenergan) 25 mg IM Q6H PRN PRN Reason: Nausea Last Admin: 01/22/20 04:30 Dose: 25 mg Sodium Chloride (Saline Flush) 10 ml FLUSH ASDIRECTED PRN PRN Reason: Keep Vein Open Last Admin: 01/20/20 18:02 Dose: 10 ml Sodium Chloride (Saline Flush) 2.5 ml FLUSH ASDIRECTED PRN PRN Reason: Keep Vein Open Last Admin: 04/18/20 18:02 Dose: 2.5 ml Discontinued Medications Fentanyl (Fentanyl) 25 mcg IVPUSH ONETIME ONE Stop: 01/20/20 19:46 Last Admin: 01/20/20 20:08 Dose: Not Given Sodium Chloride (Normal Saline) 1,000 mls @ 999 mls/hr IV BOLUS ONE Stop: 01/20/20 18:33 Last Infusion: 01/20/20 18:01 Dose: 500 mls/hr Ondansetron HCl (Zofran) 4 mg IVPUSH ONETIME ONE Stop: 01/20/20 17:34 Last Admin: 01/20/20 18:02 Dose: 4 mg - Exam General: Alert, Oriented, Cooperative, No Acute Distress Lungs: Clear to Auscultation, Normal Respiratory Effort Cardiovascular: Regular Rate, Regular Rhythm GI/Abdominal Exam: Distended, Tender, Mass. No: Normal Bowel Sounds Extremities: Normal Inspection, Normal Range of Motion, Non-Tender, No Pedal Edema Neurological: No New Focal Deficit Psy/Mental Status: Alert, Normal Affect, Normal Mood Sepsis Event Note - Evaluation Sepsis Screening Result: No Definite Risk - Focused Exam Vital Signs: Vital Signs Temp Pulse Resp BP BP Pulse Ox 01/22/20 07:53 97.3 F 87 16 141/80 H 93 L 01/22/20 04:13 98.1 F 93 16 157/86 H 96 01/22/20 00:20 98.3 F 92 18 152/80 H 96 Date Exam was Performed: 01/22/20 Time Exam was Performed: 12:33 - Problem List & Annotations (1) Small bowel obstruction SNOMED Code(s): 843259440 Code(s): K56.609 - UNSP INTESTNL OBST, UNSP TO PARTIAL VERSUS COMPLETE OBST Status: Acute Priority: Medium Current Visit: Yes (2) Colon cancer SNOMED Code(s): 702939790 Code(s): C18.9 - MALIGNANT NEOPLASM OF COLON, UNSPECIFIED Status: Chronic Priority: High Current Visit: No Qualifiers: Colon location: unspecified part of colon Qualified Code(s): C18.9 - Malignant neoplasm of colon, unspecified (3) Diabetes SNOMED Code(s): 10765802 Code(s): E11.9 - TYPE 2 DIABETES MELLITUS WITHOUT COMPLICATIONS Status: Chronic Current Visit: No (4) Hypomagnesemia SNOMED Code(s): 043895658 Code(s): E83.42 - HYPOMAGNESEMIA Status: Acute Current Visit: No (5) GERD (gastroesophageal reflux disease) SNOMED Code(s): 453966994 Code(s): K21.9 - GASTRO-ESOPHAGEAL REFLUX DISEASE WITHOUT ESOPHAGITIS Status: Chronic Current Visit: No (6) Hypertension SNOMED Code(s): 28351828 Code(s): I10 - ESSENTIAL (PRIMARY) HYPERTENSION Status: Chronic Current Visit: No Qualifiers: Hypertension type: unspecified Qualified Code(s): I10 - Essential (primary ) hypertension (7) Pacemaker SNOMED Code(s): 223098369 Code(s): Z95.0 - PRESENCE OF CARDIAC PACEMAKER Status: Chronic Current Visit: No - Problem List Review Problem List Initiated/Reviewed/Updated: Yes - My Orders Last 24 Hours: My Active Orders 01/22/20 08:28 Magnesium Sulfate [Magnesium Sulfate 50%] 4 gm Sodium Chloride 0.9% with KCl [ Normal Saline with 40 mEq KCl] 1,000 ml IV ONETIME - Plan Plan:: 59 y/o F admitted for SBO likely secondary to metastatic disease 1. Metastatic colon cancer - SBO continues, reports scant flatus. No BM. NG output lessening. - Nausea ok, continue Zofran and Phenergan - Continue Dilaudid - Spoke with Dr Cho, Oncology. Will speak with Leanne, but recommends Hospice is likely best option. 2. Hypokalemia, hypomagnesemia - replace via IV today, recheck in am 3. Dm Type 2: - BS stable, not eating much. Will hold off on Insulin now, BS 100-115s - Check BS TIDAC 4. HTN: -Stable, BP 120-130 SBP. Hold off on antihypertensives currently due to stable BP. VTE prophylaxis: Heparin Code Status: DNR/DNI Consults: Dr Heart, general surgery Dispo: 1-2 days pending improvement
--- NOTE | 2020-01-22 11:23 | PCM.SURGPN ---
- General Info Date of Service: 01/22/20 Functional Status: Reports: Pain Controlled (no bowel function, pain is better, ngt output low 350) - Patient Data Vitals - Most Recent: Last Vital Signs Temp 97.3 F 01/22/20 07:53 Pulse 87 01/22/20 07:53 Resp 16 01/22/20 07:53 BP 141/80 H 01/22/20 07:53 Pulse Ox 93 L 01/22/20 07:53 Weight - Most Recent: 150 lb 9.211 oz I&O - Last 24 Hours: Intake & Output 01/21/20 01/22/20 01/22/20 22:59 06:59 14:59 Intake Total 1495 1556 Output Total 500 700 Balance 995 856 Lab Results Last 24 Hrs: Laboratory Results - last 24 hr 01/21/20 01/21/20 01/22/20 Range/Units 11:28 17:55 00:16 WBC (4.0-11.0) K/uL RBC (4.30-5.90) M/uL Hgb (12.0-16.0) g/dL Hct (36.0-46.0) % MCV (80.0-98.0) fL MCH (27.0-32.0) pg MCHC (31.0-37.0) g/dL RDW Std Deviation (28.0-62.0) fl RDW Coeff of Ej (11.0-15.0) % Plt Count (150-400) K/uL MPV (7.40-12.00) fL Nucleated RBC % /100WBC Nucleated RBCs # K/uL Sodium (136-145) mmol/L Potassium (3.5-5.1) mmol/L Chloride (98-107) mmol/L Carbon Dioxide (21.0-32.0) mmol/L BUN (7.0-18.0) mg/dL Creatinine (0.6-1.0) mg/dL Est Cr Clr Drug Dosing mL/min Estimated GFR (MDRD) ml/min Glucose (74-106) mg/dL POC Glucose 110 104 96 (60-110) mg/dL Calcium (8.5-10.1) mg/dL Magnesium (1.8-2.4) mg/dL Total Bilirubin (0.2-1.0) mg/dL AST (15-37) IU/L ALT (14-63) IU/L Alkaline Phosphatase (46-116) U/L Total Protein (6.4-8.2) g/dL Albumin (3.4-5.0) g/dL Globulin (2.6-4.0) g/dL Albumin/Globulin Ratio (0.9-1.6) 01/22/20 01/22/20 01/22/20 Range/Units 05:49 05:50 05:50 WBC 7.02 (4.0-11.0) K/uL RBC 3.50 L (4.30-5.90) M/uL Hgb 10.3 L (12.0-16.0) g/dL Hct 32.6 L (36.0-46.0) % MCV 93.1 (80.0-98.0) fL MCH 29.4 (27.0-32.0) pg MCHC 31.6 (31.0-37.0) g/dL RDW Std Deviation 57.1 (28.0-62.0) fl RDW Coeff of Ej 17 H (11.0-15.0) % Plt Count 181 (150-400) K/uL MPV 9.20 (7.40-12.00) fL Nucleated RBC % 0.0 /100WBC Nucleated RBCs # 0 K/uL Sodium 139 (136-145) mmol/L Potassium 3.2 L (3.5-5.1) mmol/L Chloride 104 (98-107) mmol/L Carbon Dioxide 22.5 (21.0-32.0) mmol/L BUN 4 L (7.0-18.0) mg/dL Creatinine 0.7 (0.6-1.0) mg/dL Est Cr Clr Drug Dosing 69.28 mL/min Estimated GFR (MDRD) > 60.0 ml/min Glucose 91 (74-106) mg/dL POC Glucose 90 (60-110) mg/dL Calcium 7.1 L (8.5-10.1) mg/dL Magnesium (1.8-2.4) mg/dL Total Bilirubin 0.9 (0.2-1.0) mg/dL AST 24 (15-37) IU/L ALT 13 L (14-63) IU/L Alkaline Phosphatase 161 H (46-116) U/L Total Protein 5.0 L (6.4-8.2) g/dL Albumin 2.1 L (3.4-5.0) g/dL Globulin 2.9 (2.6-4.0) g/dL Albumin/Globulin Ratio 0.7 L (0.9-1.6) 01/22/20 Range/Units 05:50 WBC (4.0-11.0) K/uL RBC (4.30-5.90) M/uL Hgb (12.0-16.0) g/dL Hct (36.0-46.0) % MCV (80.0-98.0) fL MCH (27.0-32.0) pg MCHC (31.0-37.0) g/dL RDW Std Deviation (28.0-62.0) fl RDW Coeff of Ej (11.0-15.0) % Plt Count (150-400) K/uL MPV (7.40-12.00) fL Nucleated RBC % /100WBC Nucleated RBCs # K/uL Sodium (136-145) mmol/L Potassium (3.5-5.1) mmol/L Chloride (98-107) mmol/L Carbon Dioxide (21.0-32.0) mmol/L BUN (7.0-18.0) mg/dL Creatinine (0.6-1.0) mg/dL Est Cr Clr Drug Dosing mL/min Estimated GFR (MDRD) ml/min Glucose (74-106) mg/dL POC Glucose (60-110) mg/dL Calcium (8.5-10.1) mg/dL Magnesium 1.5 L (1.8-2.4) mg/dL Total Bilirubin (0.2-1.0) mg/dL AST (15-37) IU/L ALT (14-63) IU/L Alkaline Phosphatase (46-116) U/L Total Protein (6.4-8.2) g/dL Albumin (3.4-5.0) g/dL Globulin (2.6-4.0) g/dL Albumin/Globulin Ratio (0.9-1.6) Med Orders - Current: Current Medications Heparin Sodium (Porcine) (Heparin Sodium) 5,000 units SUBCUT Q8H MARIA T Last Admin: 01/22/20 05:51 Dose: 5,000 units Hydromorphone HCl (Dilaudid) 1 mg IVPUSH Q2H PRN PRN Reason: Pain Last Admin: 01/22/20 09:23 Dose: 1 mg Sodium Chloride (Normal Saline) 1,000 mls @ 125 mls/hr IV ASDIRECTED [facility] Last Admin: 01/22/20 05:53 Dose: 125 mls/hr Magnesium Sulfate 4 gm/Potassium Chloride/Sodium Chloride 1,008 mls @ 125 mls/ hr IV ONETIME ONE Stop: 01/22/20 16:31 Last Admin: 01/22/20 09:27 Dose: 125 mls/hr Lorazepam (Ativan) 1 mg IVPUSH Q8H PRN PRN Reason: Anxiety Last Admin: 01/20/20 23:35 Dose: 1 mg Ondansetron HCl (Zofran) 4 mg IVPUSH Q4H PRN PRN Reason: Nausea Last Admin: 01/22/20 02:20 Dose: 4 mg Promethazine HCl (Phenergan) 25 mg IM Q6H PRN PRN Reason: Nausea Last Admin: 01/22/20 04:30 Dose: 25 mg Sodium Chloride (Saline Flush) 10 ml FLUSH ASDIRECTED PRN PRN Reason: Keep Vein Open Last Admin: 01/20/20 18:02 Dose: 10 ml Sodium Chloride (Saline Flush) 2.5 ml FLUSH ASDIRECTED PRN PRN Reason: Keep Vein Open Last Admin: 01/20/20 18:02 Dose: 2.5 ml Discontinued Medications Fentanyl (Fentanyl) 25 mcg IVPUSH ONETIME ONE Stop: 01/20/20 19:46 Last Admin: 01/20/20 20:08 Dose: Not Given Sodium Chloride (Normal Saline) 1,000 mls @ 999 mls/hr IV BOLUS ONE Stop: 01/20/20 18:33 Last Infusion: 01/20/20 18:01 Dose: 500 mls/hr Ondansetron HCl (Zofran) 4 mg IVPUSH ONETIME ONE Stop: 01/20/20 17:34 Last Admin: 01/20/20 18:02 Dose: 4 mg - Exam GI/Abdominal Exam: Soft (minimal tenderness, abd mass persisted) Sepsis Event Note - Evaluation Sepsis Screening Result: No Definite Risk - Focused Exam Vital Signs: Vital Signs Temp Pulse Resp BP BP Pulse Ox 01/22/20 07:53 97.3 F 87 16 141/80 H 93 L 01/22/20 04:13 98.1 F 93 16 157/86 H 96 01/22/20 00:20 98.3 F 92 18 152/80 H 96 Date Exam was Performed: 01/22/20 Time Exam was Performed: 11:20 - Problem List Review Problem List Initiated/Reviewed/Updated: Yes - My Orders Last 24 Hours: Active Orders 24 hr Category Date Time Status POC Glucose [Blood Glucose Check, Bedside] [RC] Q6H Care 01/21/20 12:00 Active Magnesium Sulfate [Magnesium Sulfate 50%] 4 gm Med 01/22/20 08:28 Active Sodium Chloride 0.9% with KCl [Normal Saline with 40 mEq KCl] 1,000 ml IV ONETIME Medication Orders Heparin Sodium (Porcine) (Heparin Sodium) 5,000 units SUBCUT Q8H MARIA T Last Admin: 01/22/20 05:51 Dose: 5,000 units Admin: 01/21/20 22:08 Dose: 5,000 units Admin: 01/21/20 13:33 Dose: 5,000 units Admin: 01/21/20 06:05 Dose: 5,000 units Admin: 01/20/20 22:09 Dose: 5,000 units Hydromorphone HCl (Dilaudid) 1 mg IVPUSH Q2H PRN PRN Reason: Pain Last Admin: 01/22/20 09:23 Dose: 1 mg Admin: 01/22/20 06:41 Dose: 1 mg Admin: 01/22/20 04:35 Dose: 1 mg Admin: 01/22/20 02:20 Dose: 1 mg Admin: 01/22/20 00:15 Dose: 1 mg Admin: 01/21/20 22:09 Dose: 1 mg Admin: 01/21/20 19:45 Dose: 1 mg Admin: 01/21/20 17:48 Dose: 1 mg Admin: 01/21/20 15:31 Dose: 1 mg Admin: 01/21/20 13:34 Dose: 1 mg Admin: 01/21/20 11:27 Dose: 1 mg Admin: 01/21/20 09:11 Dose: 1 mg Admin: 01/21/20 07:08 Dose: 1 mg Admin: 01/21/20 04:40 Dose: 1 mg Admin: 01/21/20 01:57 Dose: 1 mg Admin: 01/20/20 23:09 Dose: 1 mg Admin: 01/20/20 21:09 Dose: 1 mg Sodium Chloride (Normal Saline) 1,000 mls @ 125 mls/hr IV ASDIRECTED MARIA T Last Admin: 01/22/20 05:53 Dose: 125 mls/hr Infusion: 01/22/20 05:53 Dose: 125 mls/hr Admin: 01/21/20 22:08 Dose: 125 mls/hr Infusion: 01/21/20 22:03 Dose: 125 mls/hr Admin: 01/21/20 14:03 Dose: 125 mls/hr Infusion: 01/21/20 14:03 Dose: 125 mls/hr Admin: 01/21/20 06:04 Dose: 125 mls/hr Infusion: 01/21/20 06:04 Dose: 125 mls/hr Admin: 01/20/20 22:09 Dose: 125 mls/hr Magnesium Sulfate 4 gm/Potassium Chloride/Sodium Chloride 1,008 mls @ 125 mls/ hr IV ONETIME ONE Stop: 01/22/20 16:31 Last Admin: 01/22/20 09:27 Dose: 125 mls/hr Lorazepam (Ativan) 1 mg IVPUSH Q8H PRN PRN Reason: Anxiety Last Admin: 01/20/20 23:35 Dose: 1 mg Ondansetron HCl (Zofran) 4 mg IVPUSH Q4H PRN PRN Reason: Nausea Last Admin: 01/22/20 02:20 Dose: 4 mg Admin: 01/21/20 22:08 Dose: 4 mg Admin: 01/21/20 17:48 Dose: 4 mg Admin: 01/21/20 11:27 Dose: 4 mg Admin: 01/21/20 06:09 Dose: 4 mg Admin: 01/21/20 01:57 Dose: 4 mg Admin: 01/20/20 21:09 Dose: 4 mg Promethazine HCl (Phenergan) 25 mg IM Q6H PRN PRN Reason: Nausea Last Admin: 01/22/20 04:30 Dose: 25 mg Sodium Chloride (Saline Flush) 10 ml FLUSH ASDIRECTED PRN PRN Reason: Keep Vein Open Last Admin: 01/20/20 18:02 Dose: 10 ml Sodium Chloride (Saline Flush) 2.5 ml FLUSH ASDIRECTED PRN PRN Reason: Keep Vein Open Last Admin: 01/20/20 18:02 Dose: 2.5 ml - Assessment Assessment (Free Text/Narrative):: WBC normal, pain better controlled, nausea continued, but ngt output is under 500; continue present treatment - Plan Plan (Free Text/Narrative):: WBC normal, pain better controlled, nausea continued, but ngt output is under 500; continue present treatment
[2020-01-23] MEDS: HYDROmorphone 1 MG/ML Syringe IVPUSH PRN ×10 (00:22→22:55)
[2020-01-23] MEDS: Sodium Chloride 0.9% 1,000 ML IV SCH (04:58)
[2020-01-23] MEDS: Heparin Sodium 5,000 Units/ML Vial SUBCUT SCH ×2 (04:59→15:08)
[2020-01-23] MEDS ORDERED: 50% Dextrose in Water 50 ML Syringe IVPUSH ONE (05:13)
[2020-01-23] MEDS: Dextrose 5%-0.9% NaCl 1,000 ML IV SCH ×3 (05:23→20:31)
[2020-01-23 05:59] LABS: BLOOD UREA NITROGEN,BUN 4 mg/dL (7.0-18.0); CARBON DIOXIDE,CO2 19.4 mmol/L (21.0-32.0); CHLORIDE,CL 108 mmol/L (98-107); GLUCOSE RANDOM 82 mg/dL (74-106); POTASSIUM,K 3.7 mmol/L (3.5-5.1); SODIUM,NA 140 mmol/L (136-145)
[2020-01-23] MEDS: LORazepam 2 MG/ML SDV IVPUSH PRN ×2 (09:09→15:18)
--- NOTE | 2020-01-23 10:38 | PCM.PN ---
- General Info Date of Service: 01/23/20 Admission Dx/Problem (Free Text): Admission Diagnosis/Problem Admission Diagnosis/Problem Small bowel obstruction Subjective Update: Feeling anxious this morning regarding prognosis of care. No chest pain or SOB. mild nausea and abdominal pain continues. Functional Status: Denies: Tolerating Diet - Review of Systems General: Reports: Fatigue, Malaise Pulmonary: Reports: No Symptoms. Denies: Shortness of Breath Cardiovascular: Reports: No Symptoms. Denies: Chest Pain Gastrointestinal: Reports: Abdominal Pain, Constipation, Flatus, Nausea. Denies : Vomiting Genitourinary: Reports: No Symptoms. Denies: Dysuria, Frequency, Burning Musculoskeletal: Reports: No Symptoms Skin: Reports: No Symptoms Neurological: Reports: No Symptoms Psychiatric: Reports: No Symptoms - Patient Data Vitals - Most Recent: Last Vital Signs Temp 98.5 F 01/23/20 07:10 Pulse 81 01/23/20 07:10 Resp 17 01/23/20 07:10 BP 143/81 H 01/23/20 07:10 Pulse Ox 95 01/23/20 07:10 Weight - Most Recent: 68.3 kg I&O - Last 24 Hours: Intake & Output 01/22/20 01/23/20 01/23/20 22:59 06:59 14:59 Intake Total 1623 0 Output Total 450 350 Balance 1173 -350 Lab Results Last 24 Hours: Laboratory Results - last 24 hr 01/22/20 01/22/20 01/23/20 Range/Units 11:25 17:23 00:21 WBC (4.0-11.0) K/uL RBC (4.30-5.90) M/uL Hgb (12.0-16.0) g/dL Hct (36.0-46.0) % MCV (80.0-98.0) fL MCH (27.0-32.0) pg MCHC (31.0-37.0) g/dL RDW Std Deviation (28.0-62.0) fl RDW Coeff of Ej (11.0-15.0) % Plt Count (150-400) K/uL MPV (7.40-12.00) fL Neut % (Auto) (48.0-80.0) % Lymph % (Auto) (16.0-40.0) % [place] % (Auto) (0.0-15.0) % Eos % (Auto) (0.0-7.0) % Baso % (Auto) (0.0-1.5) % Neut # (Auto) (1.4-5.7) K/uL Lymph # (Auto) (0.6-2.4) K/uL [place] # (Auto) (0.0-0.8) K/uL Eos # (Auto) (0.0-0.7) K/uL Baso # (Auto) (0.0-0.1) K/uL Nucleated RBC % /100WBC Nucleated RBCs # K/uL Sodium (136-145) mmol/L Potassium (3.5-5.1) mmol/L Chloride (98-107) mmol/L Carbon Dioxide (21.0-32.0) mmol/L BUN (7.0-18.0) mg/dL Creatinine (0.6-1.0) mg/dL Est Cr Clr Drug Dosing mL/min Estimated GFR (MDRD) ml/min Glucose (74-106) mg/dL POC Glucose 90 85 74 (60-110) mg/dL Calcium (8.5-10.1) mg/dL Magnesium (1.8-2.4) mg/dL Total Bilirubin (0.2-1.0) mg/dL AST (15-37) IU/L ALT (14-63) IU/L Alkaline Phosphatase (46-116) U/L Total Protein (6.4-8.2) g/dL Albumin (3.4-5.0) g/dL Globulin (2.6-4.0) g/dL Albumin/Globulin Ratio (0.9-1.6) 01/23/20 01/23/20 01/23/20 Range/Units 05:05 05:05 05:06 WBC 8.74 (4.0-11.0) K/uL RBC 3.52 L (4.30-5.90) M/uL Hgb 10.7 L (12.0-16.0) g/dL Hct 33.0 L (36.0-46.0) % MCV 93.8 (80.0-98.0) fL MCH 30.4 (27.0-32.0) pg MCHC 32.4 (31.0-37.0) g/dL RDW Std Deviation 58.9 (28.0-62.0) fl RDW Coeff of Ej 17 H (11.0-15.0) % Plt Count 201 (150-400) K/uL MPV 9.20 (7.40-12.00) fL Neut % (Auto) 73.9 (48.0-80.0) % Lymph % (Auto) 14.5 L (16.0-40.0) % [place] % (Auto) 9.8 (0.0-15.0) % Eos % (Auto) 1.5 (0.0-7.0) % Baso % (Auto) 0.3 (0.0-1.5) % Neut # (Auto) 6.5 H (1.4-5.7) K/uL Lymph # (Auto) 1.3 (0.6-2.4) K/uL [place] # (Auto) 0.9 H (0.0-0.8) K/uL Eos # (Auto) 0.1 (0.0-0.7) K/uL Baso # (Auto) 0.0 (0.0-0.1) K/uL Nucleated RBC % 0.0 /100WBC Nucleated RBCs # 0 K/uL Sodium 140 (136-145) mmol/L Potassium 3.7 (3.5-5.1) mmol/L Chloride 108 H (98-107) mmol/L Carbon Dioxide 19.4 L (21.0-32.0) mmol/L BUN 4 L (7.0-18.0) mg/dL Creatinine 0.7 (0.6-1.0) mg/dL Est Cr Clr Drug Dosing 69.28 mL/min Estimated GFR (MDRD) > 60.0 ml/min Glucose 82 (74-106) mg/dL POC Glucose 69 (60-110) mg/dL Calcium 7.1 L (8.5-10.1) mg/dL Magnesium 1.9 (1.8-2.4) mg/dL Total Bilirubin 0.9 (0.2-1.0) mg/dL AST 27 (15-37) IU/L ALT 15 (14-63) IU/L Alkaline Phosphatase 161 H (46-116) U/L Total Protein 5.1 L (6.4-8.2) g/dL Albumin 2.0 L (3.4-5.0) g/dL Globulin 3.1 (2.6-4.0) g/dL Albumin/Globulin Ratio 0.7 L (0.9-1.6) 01/23/20 Range/Units 06:15 WBC (4.0-11.0) K/uL RBC (4.30-5.90) M/uL Hgb (12.0-16.0) g/dL Hct (36.0-46.0) % MCV (80.0-98.0) fL MCH (27.0-32.0) pg MCHC (31.0-37.0) g/dL RDW Std Deviation (28.0-62.0) fl RDW Coeff of Ej (11.0-15.0) % Plt Count (150-400) K/uL MPV (7.40-12.00) fL Neut % (Auto) (48.0-80.0) % Lymph % (Auto) (16.0-40.0) % [place] % (Auto) (0.0-15.0) % Eos % (Auto) (0.0-7.0) % Baso % (Auto) (0.0-1.5) % Neut # (Auto) (1.4-5.7) K/uL Lymph # (Auto) (0.6-2.4) K/uL [place] # (Auto) (0.0-0.8) K/uL Eos # (Auto) (0.0-0.7) K/uL Baso # (Auto) (0.0-0.1) K/uL Nucleated RBC % /100WBC Nucleated RBCs # K/uL Sodium (136-145) mmol/L Potassium (3.5-5.1) mmol/L Chloride (98-107) mmol/L Carbon Dioxide (21.0-32.0) mmol/L BUN (7.0-18.0) mg/dL Creatinine (0.6-1.0) mg/dL Est Cr Clr Drug Dosing mL/min Estimated GFR (MDRD) ml/min Glucose (74-106) mg/dL POC Glucose 167 H (60-110) mg/dL Calcium (8.5-10.1) mg/dL Magnesium (1.8-2.4) mg/dL Total Bilirubin (0.2-1.0) mg/dL AST (15-37) IU/L ALT (14-63) IU/L Alkaline Phosphatase (46-116) U/L Total Protein (6.4-8.2) g/dL Albumin (3.4-5.0) g/dL Globulin (2.6-4.0) g/dL Albumin/Globulin Ratio (0.9-1.6) Med Orders - Current: Current Medications Heparin Sodium (Porcine) (Heparin Sodium) 5,000 units SUBCUT Q8H MARIA T Last Admin: 01/23/20 04:59 Dose: 5,000 units Hydromorphone HCl (Dilaudid) 1 mg IVPUSH Q2H PRN PRN Reason: Pain Last Admin: 01/23/20 10:06 Dose: 1 mg Dextrose/Sodium Chloride (Dextrose 5%-Normal Saline) 1,000 mls @ 125 mls/hr IV ASDIRECTED MARIA T Last Admin: 01/23/20 09:12 Dose: 125 mls/hr Lorazepam (Ativan) 1 mg IVPUSH Q8H PRN PRN Reason: Anxiety Last Admin: 01/23/20 09:09 Dose: 1 mg Ondansetron HCl (Zofran) 4 mg IVPUSH Q4H PRN PRN Reason: Nausea Last Admin: 01/22/20 02:20 Dose: 4 mg Phenol/Menthol (Chloraseptic Throat [place]) 1 ml MUCMEM Q2H PRN PRN Reason: throat spray Promethazine HCl (Phenergan) 25 mg IM Q6H PRN PRN Reason: Nausea Last Admin: 01/22/20 20:12 Dose: 25 mg Sodium Chloride (Saline Flush) 10 ml FLUSH ASDIRECTED PRN PRN Reason: Keep Vein Open Last Admin: 01/20/20 18:02 Dose: 10 ml Sodium Chloride (Saline Flush) 2.5 ml FLUSH ASDIRECTED PRN PRN Reason: Keep Vein Open Last Admin: 01/20/20 18:02 Dose: 2.5 ml Discontinued Medications Dextrose/Water (Dextrose 50% In Water) 50 ml IVPUSH ONETIME ONE Stop: 01/23/20 05:14 Last Admin: 01/23/20 05:25 Dose: 50 ml Fentanyl (Fentanyl) 25 mcg IVPUSH ONETIME ONE Stop: 01/20/20 19:46 Last Admin: 01/20/20 20:08 Dose: Not Given Sodium Chloride (Normal Saline) 1,000 mls @ 999 mls/hr IV BOLUS ONE Stop: 01/20/20 18:33 Last Infusion: 01/20/20 18:01 Dose: 500 mls/hr Sodium Chloride (Normal Saline) 1,000 mls @ 125 mls/hr IV ASDIRECTED [facility] Last Admin: 01/23/20 04:58 Dose: 125 mls/hr Magnesium Sulfate 4 gm/Potassium Chloride/Sodium Chloride 1,008 mls @ 125 mls/ hr IV ONETIME ONE Stop: 01/22/20 16:31 Last Admin: 01/22/20 09:27 Dose: 125 mls/hr Ondansetron HCl (Zofran) 4 mg IVPUSH ONETIME ONE Stop: 01/20/20 17:34 Last Admin: 01/20/20 18:02 Dose: 4 mg - Exam General: Alert, Oriented, Cooperative Lungs: Clear to Auscultation, Normal Respiratory Effort Cardiovascular: Regular Rate, Regular Rhythm GI/Abdominal Exam: Distended, Tender, Mass. No: Normal Bowel Sounds Extremities: Normal Inspection, Normal Range of Motion, Non-Tender, No Pedal Edema Neurological: No New Focal Deficit Psy/Mental Status: Alert, Normal Affect, Anxious Sepsis Event Note - Evaluation Sepsis Screening Result: No Definite Risk - Focused Exam Vital Signs: Vital Signs Temp Pulse Resp BP BP Pulse Ox 01/23/20 07:10 98.5 F 81 17 143/81 H 95 01/23/20 04:42 98.5 F 86 16 145/78 H 95 01/23/20 00:16 98.7 F 88 16 152/87 H 95 Date Exam was Performed: 01/23/20 Time Exam was Performed: 10:25 - Problem List & Annotations (1) Small bowel obstruction SNOMED Code(s): 568184231 Code(s): K56.609 - UNSP INTESTNL OBST, UNSP TO PARTIAL VERSUS COMPLETE OBST Status: Acute Priority: Medium Current Visit: Yes (2) Colon cancer SNOMED Code(s): 411747530 Code(s): C18.9 - MALIGNANT NEOPLASM OF COLON, UNSPECIFIED Status: Chronic Priority: High Current Visit: No Qualifiers: Colon location: unspecified part of colon Qualified Code(s): C18.9 - Malignant neoplasm of colon, unspecified (3) Diabetes SNOMED Code(s): 91429004 Code(s): E11.9 - TYPE 2 DIABETES MELLITUS WITHOUT COMPLICATIONS Status: Chronic Current Visit: No (4) Hypomagnesemia SNOMED Code(s): 855145710 Code(s): E83.42 - HYPOMAGNESEMIA Status: Acute Current Visit: No (5) GERD (gastroesophageal reflux disease) SNOMED Code(s): 648678941 Code(s): K21.9 - GASTRO-ESOPHAGEAL REFLUX DISEASE WITHOUT ESOPHAGITIS Status: Chronic Current Visit: No (6) Hypertension SNOMED Code(s): 49299726 Code(s): I10 - ESSENTIAL (PRIMARY) HYPERTENSION Status: Chronic Current Visit: No Qualifiers: Hypertension type: unspecified Qualified Code(s): I10 - Essential (primary ) hypertension (7) Pacemaker SNOMED Code(s): 424980771 Code(s): Z95.0 - PRESENCE OF CARDIAC PACEMAKER Status: Chronic Current Visit: No - Problem List Review Problem List Initiated/Reviewed/Updated: Yes - My Orders Last 24 Hours: My Active Orders 01/23/20 07:50 Phenol [Chloraseptic Throat [place]] 1 ml MUCMEM Q2H PRN 01/23/20 09:28 Consult to Hospice [CONS] Routine 01/24/20 05:11 CBC WITH AUTO DIFF [HEME] AM COMPREHENSIVE METABOLIC PN,CMP [CHEM] AM MAGNESIUM [CHEM] AM 01/25/20 05:11 CBC WITH AUTO DIFF [HEME] AM COMPREHENSIVE METABOLIC PN,CMP [CHEM] AM MAGNESIUM [CHEM] AM - Plan Plan:: 59 y/o F admitted for SBO likely secondary to metastatic disease 1. Metastatic colon cancer - SBO continues, reports scant flatus. No BM. NG output lessening. - Nausea ok, continue Zofran and Phenergan - Continue Dilaudid - Spoke with Dr Cho, Oncology, recommends Hospice care. I discussed this with Leanne. She would like to speak with Hospice again as she is leaning towards palliative measures. 2. Dm Type 2: - BS stable, not eating much. Will hold off on Insulin now, BS 100-115s - Check BS TIDAC, D5 NS started due to hypoglycemia. 3. HTN: -Stable, BP 120-130 SBP. Hold off on antihypertensives currently due to stable BP. VTE prophylaxis: Heparin Code Status: DNR/DNI Consults: Dr Heart, general surgery Dispo: 1-2 days pending improvement
--- NOTE | 2020-01-23 12:42 | PCM.SURGPN ---
- General Info Date of Service: 01/23/20 Functional Status: Reports: Pain Controlled (still nausea, passing a bit flatus , pain in control) - Patient Data Vitals - Most Recent: Last Vital Signs Temp 98.1 F 01/23/20 12:00 Pulse 86 01/23/20 12:00 Resp 18 01/23/20 12:00 BP 139/77 01/23/20 12:00 Pulse Ox 95 01/23/20 12:00 Weight - Most Recent: 150 lb 9.211 oz I&O - Last 24 Hours: Intake & Output 01/22/20 01/23/20 01/23/20 22:59 06:59 14:59 Intake Total 1623 0 Output Total 450 350 Balance 1173 -350 Lab Results Last 24 Hrs: Laboratory Results - last 24 hr 01/22/20 01/23/20 01/23/20 Range/Units 17:23 00:21 05:05 WBC 8.74 (4.0-11.0) K/uL RBC 3.52 L (4.30-5.90) M/uL Hgb 10.7 L (12.0-16.0) g/dL Hct 33.0 L (36.0-46.0) % MCV 93.8 (80.0-98.0) fL MCH 30.4 (27.0-32.0) pg MCHC 32.4 (31.0-37.0) g/dL RDW Std Deviation 58.9 (28.0-62.0) fl RDW Coeff of Ej 17 H (11.0-15.0) % Plt Count 201 (150-400) K/uL MPV 9.20 (7.40-12.00) fL Neut % (Auto) 73.9 (48.0-80.0) % Lymph % (Auto) 14.5 L (16.0-40.0) % [place] % (Auto) 9.8 (0.0-15.0) % Eos % (Auto) 1.5 (0.0-7.0) % Baso % (Auto) 0.3 (0.0-1.5) % Neut # (Auto) 6.5 H (1.4-5.7) K/uL Lymph # (Auto) 1.3 (0.6-2.4) K/uL [place] # (Auto) 0.9 H (0.0-0.8) K/uL Eos # (Auto) 0.1 (0.0-0.7) K/uL Baso # (Auto) 0.0 (0.0-0.1) K/uL Nucleated RBC % 0.0 /100WBC Nucleated RBCs # 0 K/uL Sodium (136-145) mmol/L Potassium (3.5-5.1) mmol/L Chloride (98-107) mmol/L Carbon Dioxide (21.0-32.0) mmol/L BUN (7.0-18.0) mg/dL Creatinine (0.6-1.0) mg/dL Est Cr Clr Drug Dosing mL/min Estimated GFR (MDRD) ml/min Glucose (74-106) mg/dL POC Glucose 85 74 (60-110) mg/dL Calcium (8.5-10.1) mg/dL Magnesium (1.8-2.4) mg/dL Total Bilirubin (0.2-1.0) mg/dL AST (15-37) IU/L ALT (14-63) IU/L Alkaline Phosphatase (46-116) U/L Total Protein (6.4-8.2) g/dL Albumin (3.4-5.0) g/dL Globulin (2.6-4.0) g/dL Albumin/Globulin Ratio (0.9-1.6) 01/23/20 01/23/20 01/23/20 Range/Units 05:05 05:06 06:15 WBC (4.0-11.0) K/uL RBC (4.30-5.90) M/uL Hgb (12.0-16.0) g/dL Hct (36.0-46.0) % MCV (80.0-98.0) fL MCH (27.0-32.0) pg MCHC (31.0-37.0) g/dL RDW Std Deviation (28.0-62.0) fl RDW Coeff of Ej (11.0-15.0) % Plt Count (150-400) K/uL MPV (7.40-12.00) fL Neut % (Auto) (48.0-80.0) % Lymph % (Auto) (16.0-40.0) % [place] % (Auto) (0.0-15.0) % Eos % (Auto) (0.0-7.0) % Baso % (Auto) (0.0-1.5) % Neut # (Auto) (1.4-5.7) K/uL Lymph # (Auto) (0.6-2.4) K/uL [place] # (Auto) (0.0-0.8) K/uL Eos # (Auto) (0.0-0.7) K/uL Baso # (Auto) (0.0-0.1) K/uL Nucleated RBC % /100WBC Nucleated RBCs # K/uL Sodium 140 (136-145) mmol/L Potassium 3.7 (3.5-5.1) mmol/L Chloride 108 H (98-107) mmol/L Carbon Dioxide 19.4 L (21.0-32.0) mmol/L BUN 4 L (7.0-18.0) mg/dL Creatinine 0.7 (0.6-1.0) mg/dL Est Cr Clr Drug Dosing 69.28 mL/min Estimated GFR (MDRD) > 60.0 ml/min Glucose 82 (74-106) mg/dL POC Glucose 69 167 H (60-110) mg/dL Calcium 7.1 L (8.5-10.1) mg/dL Magnesium 1.9 (1.8-2.4) mg/dL Total Bilirubin 0.9 (0.2-1.0) mg/dL AST 27 (15-37) IU/L ALT 15 (14-63) IU/L Alkaline Phosphatase 161 H (46-116) U/L Total Protein 5.1 L (6.4-8.2) g/dL Albumin 2.0 L (3.4-5.0) g/dL Globulin 3.1 (2.6-4.0) g/dL Albumin/Globulin Ratio 0.7 L (0.9-1.6) 01/23/20 Range/Units 11:56 WBC (4.0-11.0) K/uL RBC (4.30-5.90) M/uL Hgb (12.0-16.0) g/dL Hct (36.0-46.0) % MCV (80.0-98.0) fL MCH (27.0-32.0) pg MCHC (31.0-37.0) g/dL RDW Std Deviation (28.0-62.0) fl RDW Coeff of Ej (11.0-15.0) % Plt Count (150-400) K/uL MPV (7.40-12.00) fL Neut % (Auto) (48.0-80.0) % Lymph % (Auto) (16.0-40.0) % [place] % (Auto) (0.0-15.0) % Eos % (Auto) (0.0-7.0) % Baso % (Auto) (0.0-1.5) % Neut # (Auto) (1.4-5.7) K/uL Lymph # (Auto) (0.6-2.4) K/uL [place] # (Auto) (0.0-0.8) K/uL Eos # (Auto) (0.0-0.7) K/uL Baso # (Auto) (0.0-0.1) K/uL Nucleated RBC % /100WBC Nucleated RBCs # K/uL Sodium (136-145) mmol/L Potassium (3.5-5.1) mmol/L Chloride (98-107) mmol/L Carbon Dioxide (21.0-32.0) mmol/L BUN (7.0-18.0) mg/dL Creatinine (0.6-1.0) mg/dL Est Cr Clr Drug Dosing mL/min Estimated GFR (MDRD) ml/min Glucose (74-106) mg/dL POC Glucose 162 H (60-110) mg/dL Calcium (8.5-10.1) mg/dL Magnesium (1.8-2.4) mg/dL Total Bilirubin (0.2-1.0) mg/dL AST (15-37) IU/L ALT (14-63) IU/L Alkaline Phosphatase (46-116) U/L Total Protein (6.4-8.2) g/dL Albumin (3.4-5.0) g/dL Globulin (2.6-4.0) g/dL Albumin/Globulin Ratio (0.9-1.6) Med Orders - Current: Current Medications Heparin Sodium (Porcine) (Heparin Sodium) 5,000 units SUBCUT Q8H MARIA T Last Admin: 01/23/20 04:59 Dose: 5,000 units Hydromorphone HCl (Dilaudid) 1 mg IVPUSH Q2H PRN PRN Reason: Pain Last Admin: 01/23/20 12:16 Dose: 1 mg Dextrose/Sodium Chloride (Dextrose 5%-Normal Saline) 1,000 mls @ 125 mls/hr IV ASDIRECTED ON LICENSE OF [facility] Last Admin: 01/23/20 09:12 Dose: 125 mls/hr Lorazepam (Ativan) 1 mg IVPUSH Q8H PRN PRN Reason: Anxiety Last Admin: 01/23/20 09:09 Dose: 1 mg Ondansetron HCl (Zofran) 4 mg IVPUSH Q4H PRN PRN Reason: Nausea Last Admin: 01/22/20 02:20 Dose: 4 mg Phenol/Menthol (Chloraseptic Throat [place]) 1 ml MUCMEM Q2H PRN PRN Reason: throat spray Promethazine HCl (Phenergan) 25 mg IM Q6H PRN PRN Reason: Nausea Last Admin: 01/22/20 20:12 Dose: 25 mg Sodium Chloride (Saline Flush) 10 ml FLUSH ASDIRECTED PRN PRN Reason: Keep Vein Open Last Admin: 01/20/20 18:02 Dose: 10 ml Sodium Chloride (Saline Flush) 2.5 ml FLUSH ASDIRECTED PRN PRN Reason: Keep Vein Open Last Admin: 01/20/20 18:02 Dose: 2.5 ml Discontinued Medications Dextrose/Water (Dextrose 50% In Water) 50 ml IVPUSH ONETIME ONE Stop: 01/23/20 05:14 Last Admin: 01/23/20 05:25 Dose: 50 ml Fentanyl (Fentanyl) 25 mcg IVPUSH ONETIME ONE Stop: 01/20/20 19:46 Last Admin: 01/20/20 20:08 Dose: Not Given Sodium Chloride (Normal Saline) 1,000 mls @ 999 mls/hr IV BOLUS ONE Stop: 01/20/20 18:33 Last Infusion: 01/20/20 18:01 Dose: 500 mls/hr Sodium Chloride (Normal Saline) 1,000 mls @ 125 mls/hr IV ASDIRECTED ON LICENSE OF [facility] Last Admin: 01/23/20 04:58 Dose: 125 mls/hr Magnesium Sulfate 4 gm/Potassium Chloride/Sodium Chloride 1,008 mls @ 125 mls/ hr IV ONETIME ONE Stop: 01/22/20 16:31 Last Admin: 01/22/20 09:27 Dose: 125 mls/hr Ondansetron HCl (Zofran) 4 mg IVPUSH ONETIME ONE Stop: 01/20/20 17:34 Last Admin: 01/20/20 18:02 Dose: 4 mg - Exam GI/Abdominal Exam: No Distention (hard abd mass persisted) Sepsis Event Note - Evaluation Sepsis Screening Result: No Definite Risk - Focused Exam Vital Signs: Vital Signs Temp Pulse Resp BP Pulse Ox 01/23/20 12:00 98.1 F 86 18 139/77 95 01/23/20 07:10 98.5 F 81 17 143/81 H 95 01/23/20 04:42 98.5 F 86 16 145/78 H 95 Date Exam was Performed: 01/23/20 Time Exam was Performed: 12:39 - Problem List Review Problem List Initiated/Reviewed/Updated: Yes - My Orders Last 24 Hours: Active Orders 24 hr Category Date Time Status Consult to Hospice [CONS] Routine Cons 01/23/20 09:28 Active Clear Liquid Diet [DIET] Diet 01/23/20 Lunch Active CBC WITH AUTO DIFF [HEME] AM Lab 01/24/20 05:11 Ordered CBC WITH AUTO DIFF [HEME] AM Lab 01/25/20 05:11 Ordered COMPREHENSIVE METABOLIC PN,CMP [CHEM] AM Lab 01/24/20 05:11 Ordered COMPREHENSIVE METABOLIC PN,CMP [CHEM] AM Lab 01/25/20 05:11 Ordered MAGNESIUM [CHEM] AM Lab 01/24/20 05:11 Ordered MAGNESIUM [CHEM] AM Lab 01/25/20 05:11 Ordered Dextrose 5%-0.9% NaCl [Dextrose 5%-Normal Saline] 1,000 Med 01/23/20 05:15 Active ml IV ASDIRECTED Phenol [Chloraseptic Throat [place]] Med 01/23/20 07:50 Active 1 ml MUCMEM Q2H PRN Medication Orders Heparin Sodium (Porcine) (Heparin Sodium) 5,000 units SUBCUT Q8H MARIA T Last Admin: 01/23/20 04:59 Dose: 5,000 units Admin: 01/22/20 21:15 Dose: 5,000 units Admin: 01/22/20 14:12 Dose: 5,000 units Admin: 01/22/20 05:51 Dose: 5,000 units Admin: 01/21/20 22:08 Dose: 5,000 units Admin: 01/21/20 13:33 Dose: 5,000 units Admin: 01/21/20 06:05 Dose: 5,000 units Admin: 01/20/20 22:09 Dose: 5,000 units Hydromorphone HCl (Dilaudid) 1 mg IVPUSH Q2H PRN PRN Reason: Pain Last Admin: 01/23/20 12:16 Dose: 1 mg Admin: 01/23/20 10:06 Dose: 1 mg Admin: 01/23/20 07:58 Dose: 1 mg Admin: 01/23/20 04:53 Dose: 1 mg Admin: 01/23/20 02:34 Dose: 1 mg Admin: 01/23/20 00:22 Dose: 1 mg Admin: 01/22/20 22:21 Dose: 1 mg Admin: 01/22/20 20:02 Dose: 1 mg Admin: 01/22/20 17:34 Dose: 1 mg Admin: 01/22/20 14:06 Dose: 1 mg Admin: 01/22/20 11:22 Dose: 1 mg Admin: 01/22/20 09:23 Dose: 1 mg Admin: 01/22/20 06:41 Dose: 1 mg Admin: 01/22/20 04:35 Dose: 1 mg Admin: 01/22/20 02:20 Dose: 1 mg Admin: 01/22/20 00:15 Dose: 1 mg Admin: 01/21/20 22:09 Dose: 1 mg Admin: 01/21/20 19:45 Dose: 1 mg Admin: 01/21/20 17:48 Dose: 1 mg Admin: 01/21/20 15:31 Dose: 1 mg Admin: 01/21/20 13:34 Dose: 1 mg Admin: 01/21/20 11:27 Dose: 1 mg Admin: 01/21/20 09:11 Dose: 1 mg Admin: 01/21/20 07:08 Dose: 1 mg Admin: 01/21/20 04:40 Dose: 1 mg Admin: 01/21/20 01:57 Dose: 1 mg Admin: 01/20/20 23:09 Dose: 1 mg Admin: 01/20/20 21:09 Dose: 1 mg Dextrose/Sodium Chloride (Dextrose 5%-Normal Saline) 1,000 mls @ 125 mls/hr IV ASDIRECTED MARIA T Last Admin: 01/23/20 09:12 Dose: 125 mls/hr Infusion: 01/23/20 09:12 Dose: 125 mls/hr Admin: 01/23/20 05:23 Dose: 125 mls/hr Lorazepam (Ativan) 1 mg IVPUSH Q8H PRN PRN Reason: Anxiety Last Admin: 01/23/20 09:09 Dose: 1 mg Admin: 01/20/20 23:35 Dose: 1 mg Ondansetron HCl (Zofran) 4 mg IVPUSH Q4H PRN PRN Reason: Nausea Last Admin: 01/22/20 02:20 Dose: 4 mg Admin: 01/21/20 22:08 Dose: 4 mg Admin: 01/21/20 17:48 Dose: 4 mg Admin: 01/21/20 11:27 Dose: 4 mg Admin: 01/21/20 06:09 Dose: 4 mg Admin: 01/21/20 01:57 Dose: 4 mg Admin: 01/20/20 21:09 Dose: 4 mg Phenol/Menthol (Chloraseptic Throat [place]) 1 ml MUCMEM Q2H PRN PRN Reason: throat spray Promethazine HCl (Phenergan) 25 mg IM Q6H PRN PRN Reason: Nausea Last Admin: 01/22/20 20:12 Dose: 25 mg Admin: 01/22/20 11:15 Dose: 25 mg Admin: 01/22/20 04:30 Dose: 25 mg Sodium Chloride (Saline Flush) 10 ml FLUSH ASDIRECTED PRN PRN Reason: Keep Vein Open Last Admin: 01/20/20 18:02 Dose: 10 ml Sodium Chloride (Saline Flush) 2.5 ml FLUSH ASDIRECTED PRN PRN Reason: Keep Vein Open Last Admin: 01/20/20 18:02 Dose: 2.5 ml - Assessment Assessment (Free Text/Narrative):: carcinomatosis, stage IV colon ca w mets; prognosis grim, if want something to be done, may go higher level of care, where colorectal surgeons/oncology accessible; hospice is more realistic; pt concurs; will sign off, recall if question - Plan Plan (Free Text/Narrative):: carcinomatosis, stage IV colon ca w mets; prognosis grim, if want something to be done, may go higher level of care, where colorectal surgeons/oncology accessible; hospice is more realistic; pt concurs; will sign off, recall if question
--- NOTE | 2020-01-23 15:02 | PCM.SN.2 ---
- Free Text/Narrative Note: Had phone conference with Maxwell and daughter Celia with Hospice. Discussed care and goals of Hospice. They are all in agreement of plan of care. We will arrange Hospice care at home. is working to move daughter here to [place] from [place]. They are needing time to do so. It is not safe for Leanne to return home at this time while the is out of town moving daughter home. They feel Wednesday would be the best time frame for discharge to allow them time to move her daughter back here. Leanne otherwise has no other family or caregivers to take care of her at home under Hospice care until then. Hospice will work with us to get pain management under control and a good regimen at home. She will go home with NG in place for comfort and nausea relief due to obstruction from metastatic colon cancer. Prognosis is poor and family was counseled on this.
[2020-01-23] MEDS: Phenol 1.4% Oral Spray 177 ML Bottle MUCMEM PRN (20:35)
[2020-01-24] MEDS: HYDROmorphone 1 MG/ML Syringe IVPUSH PRN ×9 (04:26→23:25)
[2020-01-24] MEDS: Dextrose 5%-0.9% NaCl 1,000 ML IV SCH ×3 (04:33→15:50)
[2020-01-24] MEDS: Ondansetron 4 MG/2 ML SDV IVPUSH PRN ×2 (04:41→10:40)
--- NOTE | 2020-01-24 07:48 | PCM.PN ---
- General Info Date of Service: 01/24/20 Admission Dx/Problem (Free Text): Admission Diagnosis/Problem Admission Diagnosis/Problem Small bowel obstruction Subjective Update: Resting well, pain controlled. No concerns. - Review of Systems General: Reports: Malaise Pulmonary: Reports: No Symptoms. Denies: Shortness of Breath Cardiovascular: Reports: No Symptoms. Denies: Chest Pain Gastrointestinal: Reports: Abdominal Pain, Nausea Skin: Reports: No Symptoms Neurological: Reports: No Symptoms Psychiatric: Reports: No Symptoms - Patient Data Vitals - Most Recent: Last Vital Signs Temp 97.3 F 01/24/20 07:41 Pulse 77 01/24/20 07:41 Resp 16 01/24/20 07:41 BP 151/81 H 01/24/20 07:41 Pulse Ox 95 01/24/20 07:41 Weight - Most Recent: 68.3 kg I&O - Last 24 Hours: Intake & Output 01/23/20 01/24/20 01/24/20 22:59 06:59 14:59 Intake Total 1715 1570 Output Total 950 900 Balance 765 670 Lab Results Last 24 Hours: Laboratory Results - last 24 hr 01/23/20 01/23/20 01/24/20 Range/Units 11:56 18:31 00:21 POC Glucose 162 H 157 H 163 H (60-110) mg/dL 01/24/20 Range/Units 06:24 POC Glucose 160 H (60-110) mg/dL Med Orders - Current: Current Medications Hydromorphone HCl (Dilaudid) 1 mg IVPUSH Q2H PRN PRN Reason: Pain Last Admin: 01/24/20 06:29 Dose: 1 mg Dextrose/Sodium Chloride (Dextrose 5%-Normal Saline) 1,000 mls @ 125 mls/hr IV ASDIRECTED MARIA T Last Admin: 01/24/20 04:33 Dose: 125 mls/hr Lorazepam (Ativan) 1 mg IVPUSH Q4H PRN PRN Reason: Anxiety Last Admin: 01/23/20 15:18 Dose: 1 mg Ondansetron HCl (Zofran) 4 mg IVPUSH Q4H PRN PRN Reason: Nausea Last Admin: 01/24/20 04:41 Dose: 4 mg Phenol/Menthol (Chloraseptic Throat [place]) 1 ml MUCMEM Q2H PRN PRN Reason: throat spray Last Admin: 01/23/20 20:35 Dose: 1 spray Promethazine HCl (Phenergan) 25 mg IM Q6H PRN PRN Reason: Nausea Last Admin: 01/22/20 20:12 Dose: 25 mg Sodium Chloride (Saline Flush) 10 ml FLUSH ASDIRECTED PRN PRN Reason: Keep Vein Open Last Admin: 01/20/20 18:02 Dose: 10 ml Sodium Chloride (Saline Flush) 2.5 ml FLUSH ASDIRECTED PRN PRN Reason: Keep Vein Open Last Admin: 01/20/20 18:02 Dose: 2.5 ml Discontinued Medications Dextrose/Water (Dextrose 50% In Water) 50 ml IVPUSH ONETIME ONE Stop: 01/23/20 05:14 Last Admin: 01/23/20 05:25 Dose: 50 ml Fentanyl (Fentanyl) 25 mcg IVPUSH ONETIME ONE Stop: 01/20/20 19:46 Last Admin: 01/20/20 20:08 Dose: Not Given Heparin Sodium (Porcine) (Heparin Sodium) 5,000 units SUBCUT Q8H [facility] Last Admin: 01/23/20 15:08 Dose: Not Given Sodium Chloride (Normal Saline) 1,000 mls @ 999 mls/hr IV BOLUS ONE Stop: 01/20/20 18:33 Last Infusion: 01/20/20 18:01 Dose: 500 mls/hr Sodium Chloride (Normal Saline) 1,000 mls @ 125 mls/hr IV ASDIRECTED MARIA T Last Admin: 01/23/20 04:58 Dose: 125 mls/hr Magnesium Sulfate 4 gm/Potassium Chloride/Sodium Chloride 1,008 mls @ 125 mls/ hr IV ONETIME ONE Stop: 01/22/20 16:31 Last Admin: 01/22/20 09:27 Dose: 125 mls/hr Lorazepam (Ativan) 1 mg IVPUSH Q8H PRN PRN Reason: Anxiety Last Admin: 01/23/20 09:09 Dose: 1 mg Ondansetron HCl (Zofran) 4 mg IVPUSH ONETIME ONE Stop: 01/20/20 17:34 Last Admin: 01/20/20 18:02 Dose: 4 mg - Exam General: Alert, Oriented, Cooperative HEENT: Other (NG to L nare) Lungs: Clear to Auscultation, Normal Respiratory Effort Cardiovascular: Regular Rate, Regular Rhythm GI/Abdominal Exam: Distended, Tender, Mass Extremities: Normal Inspection, Normal Range of Motion, Non-Tender, No Pedal Edema Psy/Mental Status: Alert, Normal Affect, Normal Mood Sepsis Event Note - Evaluation Sepsis Screening Result: No Definite Risk - Focused Exam Vital Signs: Vital Signs Temp Pulse Resp BP BP Pulse Ox 01/24/20 07:41 97.3 F 77 16 151/81 H 95 01/24/20 00:24 98.1 F 84 16 143/77 H 96 Date Exam was Performed: 01/24/20 Time Exam was Performed: 11:26 - Problem List & Annotations (1) Palliative care status SNOMED Code(s): 160340656 Code(s): Z51.5 - ENCOUNTER FOR PALLIATIVE CARE Status: Acute Current Visit: Yes (2) Small bowel obstruction SNOMED Code(s): 244059125 Code(s): K56.609 - UNSP INTESTNL OBST, UNSP TO PARTIAL VERSUS COMPLETE OBST Status: Acute Priority: Medium Current Visit: Yes (3) Colon cancer SNOMED Code(s): 939151710 Code(s): C18.9 - MALIGNANT NEOPLASM OF COLON, UNSPECIFIED Status: Chronic Priority: High Current Visit: No Qualifiers: Colon location: unspecified part of colon Qualified Code(s): C18.9 - Malignant neoplasm of colon, unspecified (4) Diabetes SNOMED Code(s): 23908494 Code(s): E11.9 - TYPE 2 DIABETES MELLITUS WITHOUT COMPLICATIONS Status: Chronic Current Visit: No (5) Hypomagnesemia SNOMED Code(s): 993519902 Code(s): E83.42 - HYPOMAGNESEMIA Status: Acute Current Visit: No (6) GERD (gastroesophageal reflux disease) SNOMED Code(s): 849543683 Code(s): K21.9 - GASTRO-ESOPHAGEAL REFLUX DISEASE WITHOUT ESOPHAGITIS Status: Chronic Current Visit: No (7) Hypertension SNOMED Code(s): 84538465 Code(s): I10 - ESSENTIAL (PRIMARY) HYPERTENSION Status: Chronic Current Visit: No Qualifiers: Hypertension type: unspecified Qualified Code(s): I10 - Essential (primary ) hypertension (8) Pacemaker SNOMED Code(s): 154582819 Code(s): Z95.0 - PRESENCE OF CARDIAC PACEMAKER Status: Chronic Current Visit: No - Problem List Review Problem List Initiated/Reviewed/Updated: Yes - My Orders Last 24 Hours: My Active Orders 01/23/20 07:50 Phenol [Chloraseptic Throat [place]] 1 ml MUCMEM Q2H PRN 01/23/20 09:28 Consult to Hospice [CONS] Routine 01/23/20 14:56 LORazepam [Ativan] 1 mg IVPUSH Q4H PRN Comfort Measures [OM.PC] Routine 01/23/20 Lunch Clear Liquid Diet [DIET] - Plan Plan:: 59 y/o F admitted for SBO likely secondary to metastatic disease 1. Palliative Care for metastatic colon cancer - Palliative care. - Hospice is planned upon discharge - Continue Dilaudid for pain control, Phenergan, Zofran and Ativan as well. - Will discuss pain control with Hospice, may need to consider Methadone due to allergy to Morphine and Dilaudid does not come in a concentrate liquid. - Will be arranging care at home, NG tube to remain in place and will be discharged home with this. Code Status: DNR/DNI/comfort measures Dispo: pending safe arrangements at home. Family is moving here this weekend to provide care for her at home. Denies wanting care home placement.
[2020-01-24] MEDS: Promethazine 25 MG/ML SDV IM PRN ×2 (14:01→23:36)
[2020-01-24] MEDS: Insulin Aspart 100 Units/ML 3 ML Pen SUBCUT SCH (17:33)
[2020-01-25] MEDS: HYDROmorphone 1 MG/ML Syringe IVPUSH PRN ×8 (02:23→23:05)
[2020-01-25] MEDS: Promethazine 25 MG/ML SDV IM PRN ×2 (07:21→13:50)
[2020-01-25] MEDS: Insulin Aspart 100 Units/ML 3 ML Pen SUBCUT SCH ×3 (07:57→17:53)
[2020-01-25] MEDS ORDERED: METHADONE PO SCH ×2 (09:30→11:00)
[2020-01-25] MEDS: Dextrose 5%-0.9% NaCl 1,000 ML IV SCH (10:43)
--- NOTE | 2020-01-25 10:45 | PCM.PN ---
- General Info Date of Service: 01/25/20 Admission Dx/Problem (Free Text): Admission Diagnosis/Problem Admission Diagnosis/Problem Small bowel obstruction Subjective Update: Pain is ok today, having more nausea. ASking about transitioning to different medications to have at home for pain control. Functional Status: Reports: Pain Controlled, Tolerating Diet, Ambulating - Review of Systems General: Reports: Weakness, Malaise Pulmonary: Reports: No Symptoms. Denies: Shortness of Breath Cardiovascular: Reports: No Symptoms. Denies: Chest Pain Gastrointestinal: Reports: Abdominal Pain, Nausea. Denies: Vomiting Genitourinary: Reports: No Symptoms Musculoskeletal: Reports: No Symptoms Skin: Reports: No Symptoms Neurological: Reports: No Symptoms Psychiatric: Reports: No Symptoms - Patient Data Vitals - Most Recent: Last Vital Signs Temp 98.2 F 01/25/20 07:20 Pulse 85 01/25/20 07:20 Resp 17 01/25/20 07:20 BP 156/82 H 01/25/20 07:20 Pulse Ox 95 01/25/20 07:20 Weight - Most Recent: 68.3 kg I&O - Last 24 Hours: Intake & Output 01/24/20 01/25/20 01/25/20 22:59 06:59 14:59 Intake Total 1390 708 Output Total 990 450 Balance 400 258 Lab Results Last 24 Hours: Laboratory Results - last 24 hr 01/24/20 01/24/20 01/24/20 Range/Units 12:14 17:26 23:50 POC Glucose 182 H 143 H 131 H (60-110) mg/dL 01/25/20 Range/Units 07:44 POC Glucose 131 H (60-110) mg/dL Med Orders - Current: Current Medications Dextrose/Sodium Chloride (Dextrose 5%-Normal Saline) 1,000 mls @ 50 mls/hr IV Q20H [facility] Last Admin: 01/25/20 10:43 Dose: 50 mls/hr Insulin Aspart (Novolog) 0 unit SUBCUT TIDAC [facility]; Protocol Last Admin: 01/25/20 07:57 Dose: Not Given Lorazepam (Ativan) 1 mg IVPUSH Q4H PRN PRN Reason: Anxiety Last Admin: 01/23/20 15:18 Dose: 1 mg Methadone HCl (Methadone Intensol) 5 mg PO Q3H [facility] Ondansetron HCl (Zofran) 4 mg IVPUSH Q4H PRN PRN Reason: Nausea Last Admin: 01/24/20 10:40 Dose: 4 mg Phenol/Menthol (Chloraseptic Throat [place]) 1 ml MUCMEM Q2H PRN PRN Reason: throat spray Last Admin: 01/23/20 20:35 Dose: 1 spray Promethazine HCl (Phenergan) 25 mg IM Q6H PRN PRN Reason: Nausea Last Admin: 01/25/20 07:21 Dose: 25 mg Sodium Chloride (Saline Flush) 10 ml FLUSH ASDIRECTED PRN PRN Reason: Keep Vein Open Last Admin: 01/20/20 18:02 Dose: 10 ml Sodium Chloride (Saline Flush) 2.5 ml FLUSH ASDIRECTED PRN PRN Reason: Keep Vein Open Last Admin: 01/20/20 18:02 Dose: 2.5 ml Discontinued Medications Dextrose/Water (Dextrose 50% In Water) 50 ml IVPUSH ONETIME ONE Stop: 01/23/20 05:14 Last Admin: 01/23/20 05:25 Dose: 50 ml Fentanyl (Fentanyl) 25 mcg IVPUSH ONETIME ONE Stop: 01/20/20 19:46 Last Admin: 01/20/20 20:08 Dose: Not Given Heparin Sodium (Porcine) (Heparin Sodium) 5,000 units SUBCUT Q8H [facility] Last Admin: 01/23/20 15:08 Dose: Not Given Hydromorphone HCl (Dilaudid) 1 mg IVPUSH Q2H PRN PRN Reason: Pain Last Admin: 01/25/20 07:12 Dose: 1 mg Sodium Chloride (Normal Saline) 1,000 mls @ 999 mls/hr IV BOLUS ONE Stop: 01/20/20 18:33 Last Infusion: 01/20/20 18:01 Dose: 500 mls/hr Sodium Chloride (Normal Saline) 1,000 mls @ 125 mls/hr IV ASDIRECTED [facility]IA T Last Admin: 01/23/20 04:58 Dose: 125 mls/hr Magnesium Sulfate 4 gm/Potassium Chloride/Sodium Chloride 1,008 mls @ 125 mls/ hr IV ONETIME ONE Stop: 01/22/20 16:31 Last Admin: 01/22/20 09:27 Dose: 125 mls/hr Dextrose/Sodium Chloride (Dextrose 5%-Normal Saline) 1,000 mls @ 125 mls/hr IV ASDIRECTED [facility]IA T Last Admin: 01/24/20 12:14 Dose: 125 mls/hr Lorazepam (Ativan) 1 mg IVPUSH Q8H PRN PRN Reason: Anxiety Last Admin: 01/23/20 09:09 Dose: 1 mg Ondansetron HCl (Zofran) 4 mg IVPUSH ONETIME ONE Stop: 01/20/20 17:34 Last Admin: 01/20/20 18:02 Dose: 4 mg - Exam General: Alert, Oriented, Cooperative, No Acute Distress Lungs: Clear to Auscultation, Normal Respiratory Effort Cardiovascular: Regular Rate, Regular Rhythm GI/Abdominal Exam: Distended, Tender, Mass Extremities: Normal Inspection, Normal Range of Motion, Non-Tender, No Pedal Edema Psy/Mental Status: Alert, Normal Affect, Normal Mood Sepsis Event Note - Evaluation Sepsis Screening Result: No Definite Risk - Focused Exam Vital Signs: Vital Signs Temp Pulse Resp BP Pulse Ox Pulse Ox 01/25/20 07:20 98.2 F 85 17 156/82 H 95 01/24/20 23:00 96 Date Exam was Performed: 01/25/20 Time Exam was Performed: 10:46 - Problem List & Annotations (1) Palliative care status SNOMED Code(s): 270363489 Code(s): Z51.5 - ENCOUNTER FOR PALLIATIVE CARE Status: Acute Current Visit: Yes (2) Small bowel obstruction SNOMED Code(s): 346941983 Code(s): K56.609 - UNSP INTESTNL OBST, UNSP TO PARTIAL VERSUS COMPLETE OBST Status: Acute Priority: Medium Current Visit: Yes (3) Colon cancer SNOMED Code(s): 764382433 Code(s): C18.9 - MALIGNANT NEOPLASM OF COLON, UNSPECIFIED Status: Chronic Priority: High Current Visit: No Qualifiers: Colon location: unspecified part of colon Qualified Code(s): C18.9 - Malignant neoplasm of colon, unspecified (4) Diabetes SNOMED Code(s): 03187569 Code(s): E11.9 - TYPE 2 DIABETES MELLITUS WITHOUT COMPLICATIONS Status: Chronic Current Visit: No (5) Hypomagnesemia SNOMED Code(s): 572006140 Code(s): E83.42 - HYPOMAGNESEMIA Status: Acute Current Visit: No (6) GERD (gastroesophageal reflux disease) SNOMED Code(s): 765573262 Code(s): K21.9 - GASTRO-ESOPHAGEAL REFLUX DISEASE WITHOUT ESOPHAGITIS Status: Chronic Current Visit: No (7) Hypertension SNOMED Code(s): 39564415 Code(s): I10 - ESSENTIAL (PRIMARY) HYPERTENSION Status: Chronic Current Visit: No Qualifiers: Hypertension type: unspecified Qualified Code(s): I10 - Essential (primary ) hypertension (8) Pacemaker SNOMED Code(s): 639306665 Code(s): Z95.0 - PRESENCE OF CARDIAC PACEMAKER Status: Chronic Current Visit: No - Problem List Review Problem List Initiated/Reviewed/Updated: Yes - My Orders Last 24 Hours: My Active Orders 01/24/20 15:15 Dextrose 5%-0.9% NaCl [Dextrose 5%-Normal Saline] 1,000 ml IV Q20H 01/24/20 17:00 Insulin Aspart [NovoLOG] See Protocol SUBCUT TIDAC 01/25/20 09:30 Methadone [Methadone IntensoL] 5 mg PO Q3H - Plan Plan:: 59 y/o F admitted for SBO likely secondary to metastatic disease 1. Palliative Care for metastatic colon cancer - Palliative care. - Hospice is planned upon discharge - Phenergan, Zofran and Ativan PRN - Transition to methadone today, start 5 mg eery 3 hours, holding for sedation. Reach steady state prior to discharge to ensure good management of pain. - Will be arranging care at home, NG tube to remain in place and will be discharged home with this. Code Status: DNR/DNI/comfort measures Dispo: Reaching steady state of methadone. Family is moving here this weekend to provide care for her at home. Denies wanting [facility] placement.
[2020-01-25] MEDS: Phenol 1.4% Oral Spray 177 ML Bottle MUCMEM PRN (13:49)
[2020-01-25] MEDS: LORazepam 2 MG/ML SDV IVPUSH PRN (19:11)
[2020-01-26] MEDS: Ondansetron 4 MG/2 ML SDV IVPUSH PRN (01:47)
[2020-01-26] MEDS: HYDROmorphone 1 MG/ML Syringe IVPUSH PRN ×5 (01:51→13:25)
[2020-01-26] MEDS: Dextrose 5%-0.9% NaCl 1,000 ML IV SCH (07:20)
--- NOTE | 2020-01-26 07:49 | PCM.PN ---
- General Info Date of Service: 01/26/20 Admission Dx/Problem (Free Text): Admission Diagnosis/Problem Admission Diagnosis/Problem Small bowel obstruction Subjective Update: Feeling ok this morning, having some pain and mild nausea. Functional Status: Reports: Urinating. Denies: Tolerating Diet - Review of Systems Pulmonary: Reports: No Symptoms. Denies: Shortness of Breath Cardiovascular: Reports: No Symptoms. Denies: Chest Pain Gastrointestinal: Reports: Abdominal Pain, Nausea Genitourinary: Reports: No Symptoms Musculoskeletal: Reports: No Symptoms Skin: Reports: No Symptoms Psychiatric: Reports: No Symptoms - Patient Data Vitals - Most Recent: Last Vital Signs Temp 97.7 F 01/26/20 07:12 Pulse 81 01/26/20 07:12 Resp 17 01/26/20 07:12 BP 141/84 H 01/26/20 07:12 Pulse Ox 95 01/26/20 07:12 Weight - Most Recent: 68.3 kg I&O - Last 24 Hours: Intake & Output 01/25/20 01/26/20 01/26/20 22:59 06:59 14:59 Intake Total 634 746 Output Total 1165 300 Balance -531 446 Lab Results Last 24 Hours: Laboratory Results - last 24 hr 01/25/20 01/25/20 01/25/20 Range/Units 07:44 11:12 16:58 POC Glucose 131 H 157 H 135 H (60-110) mg/dL Med Orders - Current: Current Medications Hydromorphone HCl (Dilaudid) 1 mg IVPUSH Q2H PRN PRN Reason: Pain Stop: 01/26/20 10:30 Last Admin: 01/26/20 06:24 Dose: 1 mg Dextrose/Sodium Chloride (Dextrose 5%-Normal Saline) 1,000 mls @ 50 mls/hr IV Q20H [facility] Last Admin: 01/26/20 07:20 Dose: 50 mls/hr Hydromorphone HCl 25 mg/ (Sodium Chloride) 87.5 mls @ 2 mls/hr IV Q43H [facility] T Insulin Aspart (Novolog) 0 unit SUBCUT TIDAC [facility]; Protocol Last Admin: 01/25/20 17:53 Dose: Not Given Lorazepam (Ativan) 1 mg IVPUSH Q4H PRN PRN Reason: Anxiety Last Admin: 01/25/20 19:11 Dose: 1 mg Ondansetron HCl (Zofran) 4 mg IVPUSH Q4H PRN PRN Reason: Nausea Last Admin: 01/26/20 01:47 Dose: 4 mg Phenol/Menthol (Chloraseptic Throat [place]) 1 ml MUCMEM Q2H PRN PRN Reason: throat spray Last Admin: 01/25/20 13:49 Dose: 1 spray Promethazine HCl (Phenergan) 25 mg IM Q6H PRN PRN Reason: Nausea Last Admin: 01/25/20 13:50 Dose: 25 mg Sodium Chloride (Saline Flush) 10 ml FLUSH ASDIRECTED PRN PRN Reason: Keep Vein Open Last Admin: 01/20/20 18:02 Dose: 10 ml Sodium Chloride (Saline Flush) 2.5 ml FLUSH ASDIRECTED PRN PRN Reason: Keep Vein Open Last Admin: 01/20/20 18:02 Dose: 2.5 ml Discontinued Medications Dextrose/Water (Dextrose 50% In Water) 50 ml IVPUSH ONETIME ONE Stop: 01/23/20 05:14 Last Admin: 01/23/20 05:25 Dose: 50 ml Fentanyl (Fentanyl) 25 mcg IVPUSH ONETIME ONE Stop: 01/20/20 19:46 Last Admin: 01/20/20 20:08 Dose: Not Given Heparin Sodium (Porcine) (Heparin Sodium) 5,000 units SUBCUT Q8H [facility] Last Admin: 01/23/20 15:08 Dose: Not Given Hydromorphone HCl (Dilaudid) 1 mg IVPUSH Q2H PRN PRN Reason: Pain Last Admin: 01/25/20 07:12 Dose: 1 mg Sodium Chloride (Normal Saline) 1,000 mls @ 999 mls/hr IV BOLUS ONE Stop: 01/20/20 18:33 Last Infusion: 01/20/20 18:01 Dose: 500 mls/hr Sodium Chloride (Normal Saline) 1,000 mls @ 125 mls/hr IV ASDIRECTED [facility]IA T Last Admin: 01/23/20 04:58 Dose: 125 mls/hr Magnesium Sulfate 4 gm/Potassium Chloride/Sodium Chloride 1,008 mls @ 125 mls/ hr IV ONETIME ONE Stop: 01/22/20 16:31 Last Admin: 01/22/20 09:27 Dose: 125 mls/hr Dextrose/Sodium Chloride (Dextrose 5%-Normal Saline) 1,000 mls @ 125 mls/hr IV ASDIRECTED [facility] T Last Admin: 01/24/20 12:14 Dose: 125 mls/hr Lorazepam (Ativan) 1 mg IVPUSH Q8H PRN PRN Reason: Anxiety Last Admin: 01/23/20 09:09 Dose: 1 mg Methadone HCl (Methadone Intensol) 5 mg PO Q3H [facility] T Methadone HCl (Methadone Intensol) 5 mg PO Q3H [facility] T Last Admin: 01/25/20 10:51 Dose: 5 mg Ondansetron HCl (Zofran) 4 mg IVPUSH ONETIME ONE Stop: 01/20/20 17:34 Last Admin: 01/20/20 18:02 Dose: 4 mg - Exam General: Alert, Oriented, Cooperative, No Acute Distress GI/Abdominal Exam: Distended, Tender, Mass Extremities: Normal Inspection, Normal Range of Motion, Non-Tender, No Pedal Edema Neurological: No New Focal Deficit Psy/Mental Status: Alert, Normal Affect, Normal Mood Sepsis Event Note - Evaluation Sepsis Screening Result: No Definite Risk - Focused Exam Vital Signs: Vital Signs Temp Pulse Resp BP Pulse Ox Pulse Ox 01/26/20 07:12 97.7 F 81 17 141/84 H 95 01/25/20 23:21 95 01/25/20 23:17 98.4 F 87 16 140/78 95 Date Exam was Performed: 01/26/20 Time Exam was Performed: 09:17 - Problem List & Annotations (1) Palliative care status SNOMED Code(s): 832386404 Code(s): Z51.5 - ENCOUNTER FOR PALLIATIVE CARE Status: Acute Current Visit: Yes (2) Small bowel obstruction SNOMED Code(s): 881476291 Code(s): K56.609 - UNSP INTESTNL OBST, UNSP TO PARTIAL VERSUS COMPLETE OBST Status: Acute Priority: Medium Current Visit: Yes (3) Colon cancer SNOMED Code(s): 165878130 Code(s): C18.9 - MALIGNANT NEOPLASM OF COLON, UNSPECIFIED Status: Chronic Priority: High Current Visit: No Qualifiers: Colon location: unspecified part of colon Qualified Code(s): C18.9 - Malignant neoplasm of colon, unspecified (4) Diabetes SNOMED Code(s): 88951638 Code(s): E11.9 - TYPE 2 DIABETES MELLITUS WITHOUT COMPLICATIONS Status: Chronic Current Visit: No (5) Hypomagnesemia SNOMED Code(s): 681665381 Code(s): E83.42 - HYPOMAGNESEMIA Status: Acute Current Visit: No (6) GERD (gastroesophageal reflux disease) SNOMED Code(s): 945336457 Code(s): K21.9 - GASTRO-ESOPHAGEAL REFLUX DISEASE WITHOUT ESOPHAGITIS Status: Chronic Current Visit: No (7) Hypertension SNOMED Code(s): 77852172 Code(s): I10 - ESSENTIAL (PRIMARY) HYPERTENSION Status: Chronic Current Visit: No Qualifiers: Hypertension type: unspecified Qualified Code(s): I10 - Essential (primary ) hypertension (8) Pacemaker SNOMED Code(s): 021734279 Code(s): Z95.0 - PRESENCE OF CARDIAC PACEMAKER Status: Chronic Current Visit: No - Problem List Review Problem List Initiated/Reviewed/Updated: Yes - My Orders Last 24 Hours: My Active Orders 01/25/20 11:23 HYDROmorphone [Dilaudid] 1 mg IVPUSH Q2H PRN 01/26/20 10:00 HYDROmorphone [Dilaudid] 25 mg Sodium Chloride 0.9% [Normal Saline] 75 ml IV Q43H - Plan Plan:: 59 y/o F admitted for SBO likely secondary to metastatic disease 1. Palliative Care for metastatic colon cancer - Palliative care. - Hospice is planned upon discharge - Phenergan, Zofran and Ativan PRN - Attempted transition to methadone, after one dose, she vomited and become very anxious. Discussed with Tanvi Robbins. She spoke with Hospice, plan to start Dilaudid CADD pump today and monitor how pain is controlled over the weekend. She will receive 0.5 mg/hr. - Will be arranging care at home, NG tube to remain in place and will be discharged home with this. Code Status: DNR/DNI/comfort measures Dispo: Safe disposition gretta be set for Wednesday. Family is moving here this weekend to provide care for her at home. Denies wanting group home placement.
[2020-01-26] MEDS: Insulin Aspart 100 Units/ML 3 ML Pen SUBCUT SCH ×3 (08:05→17:56)
[2020-01-26] MEDS ORDERED: HYDROMORPHONE IV SCH (10:00)
[2020-01-26] MEDS ORDERED: SODIUM CHLORIDE 0.9% IV SCH (10:00)
[2020-01-26] MEDS ORDERED: HYDROmorphone 2 MG/ML Syringe IVPUSH PRN (10:53)
[2020-01-26] MEDS: LORazepam 2 MG/ML SDV IVPUSH PRN ×2 (13:22→21:52)
[2020-01-26] MEDS: Promethazine 25 MG/ML SDV IM PRN (13:32)
[2020-01-26] MEDS: HYDROMORPHONE IV SCH (16:01)
[2020-01-26] MEDS: SODIUM CHLORIDE 0.9% IV SCH (16:01)
[2020-01-26] MEDS: Phenol 1.4% Oral Spray 177 ML Bottle MUCMEM PRN (22:03)
[2020-01-27] MEDS: Dextrose 5%-0.9% NaCl 1,000 ML IV SCH ×2 (03:25→23:02)
[2020-01-27] MEDS: Insulin Aspart 100 Units/ML 3 ML Pen SUBCUT SCH ×3 (07:04→17:18)
[2020-01-27] MEDS: Ondansetron 4 MG/2 ML SDV IVPUSH PRN ×3 (07:09→22:09)
[2020-01-27] MEDS: LORazepam 2 MG/ML SDV IVPUSH PRN ×2 (07:20→15:56)
--- NOTE | 2020-01-27 10:59 | PCM.PN ---
- General Info Date of Service: 01/27/20 Admission Dx/Problem (Free Text): Admission Diagnosis/Problem Admission Diagnosis/Problem Small bowel obstruction Subjective Update: Pain is well controlled with CAD pump, resting comfortably - Review of Systems General: Reports: Weakness, Fatigue. Denies: Fever Pulmonary: Denies: Shortness of Breath, Pleuritic Chest Pain Cardiovascular: Denies: Chest Pain, Palpitations Gastrointestinal: Reports: Abdominal Pain, Constipation, Decreased Appetite, Difficulty Swallowing, Flatus. Denies: Diarrhea Genitourinary: Denies: Dysuria, Frequency, Burning Musculoskeletal: Denies: Neck Pain, Shoulder Pain, Arm Pain Skin: Denies: Cyanosis, Jaundice, Mottled Neurological: Denies: Confusion, Dizziness, Headache Psychiatric: Reports: Anxiety. Denies: Confusion, Depression - Patient Data Vitals - Most Recent: Last Vital Signs Temp 36.9 C 01/27/20 07:43 Pulse 104 H 01/27/20 07:43 Resp 16 01/27/20 07:43 BP 141/81 H 01/27/20 07:43 Pulse Ox 93 L 01/27/20 07:43 Weight - Most Recent: 68.3 kg I&O - Last 24 Hours: Intake & Output 01/26/20 01/27/20 01/27/20 22:59 06:59 14:59 Intake Total 760 770 Output Total 700 650 Balance 60 120 Lab Results Last 24 Hours: Laboratory Results - last 24 hr 01/25/20 01/26/20 01/26/20 Range/Units 23:24 06:29 11:19 POC Glucose 140 H 131 H 143 H (60-110) mg/dL 01/26/20 01/27/20 01/27/20 Range/Units 17:34 00:04 06:08 POC Glucose 147 H 136 H 162 H (60-110) mg/dL Med Orders - Current: Current Medications Dextrose/Sodium Chloride (Dextrose 5%-Normal Saline) 1,000 mls @ 50 mls/hr IV Q20H [facility] Last Admin: 01/27/20 03:25 Dose: 50 mls/hr Hydromorphone HCl 25 mg/ (Sodium Chloride) 100 mls @ 2 mls/hr IV Q50H [facility] Last Admin: 01/26/20 16:01 Dose: 2 mls/hr [facility] Last Admin: 01/27/20 07:04 Dose: 1 unit Lorazepam (Ativan) 1 mg IVPUSH Q4H PRN PRN Reason: Anxiety Last Admin: 01/27/20 07:20 Dose: 1 mg Ondansetron HCl (Zofran) 4 mg IVPUSH Q4H PRN PRN Reason: Nausea Last Admin: 01/27/20 07:09 Dose: 4 mg Phenol/Menthol (Chloraseptic Throat [place]) 1 ml MUCMEM Q2H PRN PRN Reason: throat spray Last Admin: 01/26/20 22:03 Dose: 1 spray Promethazine HCl (Phenergan) 25 mg IM Q6H PRN PRN Reason: Nausea Last Admin: 01/26/20 13:32 Dose: 25 mg Sodium Chloride (Saline Flush) 10 ml FLUSH ASDIRECTED PRN PRN Reason: Keep Vein Open Last Admin: 01/20/20 18:02 Dose: 10 ml Sodium Chloride (Saline Flush) 2.5 ml FLUSH ASDIRECTED PRN PRN Reason: Keep Vein Open Last Admin: 01/20/20 18:02 Dose: 2.5 ml Discontinued Medications Dextrose/Water (Dextrose 50% In Water) 50 ml IVPUSH ONETIME ONE Stop: 01/23/20 05:14 Last Admin: 01/23/20 05:25 Dose: 50 ml Fentanyl (Fentanyl) 25 mcg IVPUSH ONETIME ONE Stop: 01/20/20 19:46 Last Admin: 01/20/20 20:08 Dose: Not Given Heparin Sodium (Porcine) (Heparin Sodium) 5,000 units SUBCUT Q8H [facility] Last Admin: 01/23/20 15:08 Dose: Not Given Hydromorphone HCl (Dilaudid) 1 mg IVPUSH Q2H PRN PRN Reason: Pain Last Admin: 01/25/20 07:12 Dose: 1 mg Hydromorphone HCl (Dilaudid) 1 mg IVPUSH Q2H PRN PRN Reason: Pain Stop: 01/26/20 10:30 Last Admin: 01/26/20 08:51 Dose: 1 mg Hydromorphone HCl (Dilaudid) 1 mg IVPUSH Q2H PRN PRN Reason: Pain Last Admin: 01/26/20 13:25 Dose: 1 mg Sodium Chloride (Normal Saline) 1,000 mls @ 999 mls/hr IV BOLUS ONE Stop: 01/20/20 18:33 Last Infusion: 01/20/20 18:01 Dose: 500 mls/hr Sodium Chloride (Normal Saline) 1,000 mls @ 125 mls/hr IV ASDIRECTED [facility] Last Admin: 01/23/20 04:58 Dose: 125 mls/hr Magnesium Sulfate 4 gm/Potassium Chloride/Sodium Chloride 1,008 mls @ 125 mls/ hr IV ONETIME ONE Stop: 01/22/20 16:31 Last Admin: 01/22/20 09:27 Dose: 125 mls/hr Dextrose/Sodium Chloride (Dextrose 5%-Normal Saline) 1,000 mls @ 125 mls/hr IV ASDIRECTED [facility] Last Admin: 01/24/20 12:14 Dose: 125 mls/hr Lorazepam (Ativan) 1 mg IVPUSH Q8H PRN PRN Reason: Anxiety Last Admin: 01/23/20 09:09 Dose: 1 mg Methadone HCl (Methadone Intensol) 5 mg PO Q3H [facility] Last Admin: 01/27/20 06:39 Dose: Not Given Methadone HCl (Methadone Intensol) 5 mg PO Q3H [facility] Last Admin: 01/25/20 10:51 Dose: 5 mg Ondansetron HCl (Zofran) 4 mg IVPUSH ONETIME ONE Stop: 01/20/20 17:34 Last Admin: 01/20/20 18:02 Dose: 4 mg - Exam General: Alert, Oriented Neck: Supple, Trachea Midline Lungs: Clear to Auscultation, Normal Respiratory Effort Cardiovascular: Regular Rate, Regular Rhythm GI/Abdominal Exam: Distended, Tender, Abnormal Bowel Sounds, Mass Peripheral Pulses: 3+: Dorsalis Pedis (L), Dorsalis Pedis (R) Skin: Warm, Dry Neurological: No New Focal Deficit Psy/Mental Status: Alert, Normal Affect, Anxious Sepsis Event Note - Evaluation Sepsis Screening Result: No Definite Risk - Focused Exam Vital Signs: Vital Signs Temp Pulse Resp BP Pulse Ox Pulse Ox 01/27/20 07:43 36.9 C 104 H 16 141/81 H 93 L 01/27/20 03:31 37.1 C 103 H 17 132/76 92 L 01/27/20 00:00 37.2 C 100 17 142/70 H 92 L 01/26/20 23:00 92 L Date Exam was Performed: 01/27/20 Time Exam was Performed: 10:56 - Problem List & Annotations (1) Palliative care status SNOMED Code(s): 983262570 Code(s): Z51.5 - ENCOUNTER FOR PALLIATIVE CARE Status: Acute Current Visit: Yes (2) Abdominal pain SNOMED Code(s): 20562815 Code(s): R10.9 - UNSPECIFIED ABDOMINAL PAIN Status: Acute Current Visit: No Qualifiers: Abdominal location: generalized Qualified Code(s): R10.84 - Generalized abdominal pain (3) Metastatic colon cancer in female SNOMED Code(s): 720805754, 835130946 Code(s): C18.9 - MALIGNANT NEOPLASM OF COLON, UNSPECIFIED Status: Acute Priority: High Current Visit: No - Problem List Review Problem List Initiated/Reviewed/Updated: Yes - Plan Plan:: 59 y/o F admitted for SBO likely secondary to metastatic disease 1. Palliative Care for metastatic colon cancer - cont Palliative care. - Hospice is planned upon discharge - cont Phenergan, Zofran and Ativan PRN - cont Dilaudid CADD pump @ 0.5 mg/hr. - Will be arranging care at home, NG tube to remain in place and will be discharged home with this. Code Status: DNR/DNI/comfort measures Dispo: Safe disposition gretta be set for Wednesday. Family is moving here this weekend to provide care for her at home. Denies wanting detention placement.
--- NOTE | 2020-01-27 18:19 | CR ---
Abdomen: Supine view of the abdomen was obtained utilizing portable technique. Comparison: Previous CT abdomen and pelvis exam of 01/05/20. Nasogastric tube is seen. Tip lies in the area of the stomach. Pacemaker is noted. Thick area of atelectasis is seen within the right lung base. Lungs otherwise are clear as seen. Visualized bowel gas is normal. Impression: 1. Tip of nasogastric tube is felt to be within the stomach. 2. Thick area of atelectasis within the right lung base. Diagnostic code #2 This report was dictated in MDT
[2020-01-28] MEDS: Insulin Aspart 100 Units/ML 3 ML Pen SUBCUT SCH ×3 (07:46→17:54)
[2020-01-28] MEDS: LORazepam 2 MG/ML SDV IVPUSH PRN ×2 (10:34→20:02)
--- NOTE | 2020-01-28 11:41 | PCM.PN ---
- General Info Date of Service: 01/28/20 Admission Dx/Problem (Free Text): Admission Diagnosis/Problem Admission Diagnosis/Problem Small bowel obstruction Subjective Update: Pain is well controlled with CAD pump, resting comfortably , events from yesterday noted - Review of Systems General: Reports: Weakness, Fatigue. Denies: Fever HEENT: Reports: Dysphasia, Sore Throat. Denies: Ear Pain, Eye Pain Pulmonary: Denies: Shortness of Breath, Pleuritic Chest Pain Cardiovascular: Denies: Chest Pain, Palpitations, Dyspnea on Exertion Gastrointestinal: Reports: Abdominal Pain, Constipation, Decreased Appetite, Difficulty Swallowing, Flatus, Nausea. Denies: Hematochezia, Melena, Vomiting Genitourinary: Denies: Dysuria, Frequency, Burning, Pain Musculoskeletal: Denies: Neck Pain, Shoulder Pain, Arm Pain Skin: Denies: Cyanosis, Jaundice, Mottled Neurological: Denies: Confusion, Dizziness, Headache - Patient Data Vitals - Most Recent: Last Vital Signs Temp 37.4 C 01/27/20 19:00 Pulse 98 01/27/20 19:00 Resp 17 01/27/20 19:00 BP 157/91 H 01/27/20 19:00 Pulse Ox 96 01/27/20 23:00 Weight - Most Recent: 68.3 kg I&O - Last 24 Hours: Intake & Output 01/27/20 01/28/20 01/28/20 22:59 06:59 14:59 Intake Total 727 724 Output Total 350 450 Balance 377 274 Lab Results Last 24 Hours: Laboratory Results - last 24 hr 01/27/20 01/27/20 01/27/20 Range/Units 11:38 17:17 23:42 POC Glucose 158 H 155 H 139 H (60-110) mg/dL 01/28/20 Range/Units 05:57 POC Glucose 149 H (60-110) mg/dL Med Orders - Current: Current Medications Dextrose/Sodium Chloride (Dextrose 5%-Normal Saline) 1,000 mls @ 50 mls/hr IV Q20H [facility] Last Admin: 01/27/20 23:02 Dose: 50 mls/hr Hydromorphone HCl 25 mg/ (Sodium Chloride) 100 mls @ 2 mls/hr IV Q50H [facility] Last Admin: 01/26/20 16:01 Dose: 2 mls/hr Insulin Aspart (Novolog) 0 unit SUBCUT TIDAC [facility]; Protocol Last Admin: 01/28/20 07:46 Dose: Not Given Lorazepam (Ativan) 1 mg IVPUSH Q4H PRN PRN Reason: Anxiety Last Admin: 01/28/20 10:34 Dose: 1 mg Ondansetron HCl (Zofran) 4 mg IVPUSH Q4H PRN PRN Reason: Nausea Last Admin: 01/27/20 22:09 Dose: 4 mg Phenol/Menthol (Chloraseptic Throat [place]) 1 ml MUCMEM Q2H PRN PRN Reason: throat spray Last Admin: 01/26/20 22:03 Dose: 1 spray Promethazine HCl (Phenergan) 25 mg IM Q6H PRN PRN Reason: Nausea Last Admin: 01/26/20 13:32 Dose: 25 mg Sodium Chloride (Saline Flush) 10 ml FLUSH ASDIRECTED PRN PRN Reason: Keep Vein Open Last Admin: 01/20/20 18:02 Dose: 10 ml Sodium Chloride (Saline Flush) 2.5 ml FLUSH ASDIRECTED PRN PRN Reason: Keep Vein Open Last Admin: 01/20/20 18:02 Dose: 2.5 ml Discontinued Medications Dextrose/Water (Dextrose 50% In Water) 50 ml IVPUSH ONETIME ONE Stop: 01/23/20 05:14 Last Admin: 01/23/20 05:25 Dose: 50 ml Fentanyl (Fentanyl) 25 mcg IVPUSH ONETIME ONE Stop: 01/20/20 19:46 Last Admin: 01/20/20 20:08 Dose: Not Given Heparin Sodium (Porcine) (Heparin Sodium) 5,000 units SUBCUT Q8H [facility] Last Admin: 01/23/20 15:08 Dose: Not Given Hydromorphone HCl (Dilaudid) 1 mg IVPUSH Q2H PRN PRN Reason: Pain Last Admin: 01/25/20 07:12 Dose: 1 mg Hydromorphone HCl (Dilaudid) 1 mg IVPUSH Q2H PRN PRN Reason: Pain Stop: 01/26/20 10:30 Last Admin: 01/26/20 08:51 Dose: 1 mg Hydromorphone HCl (Dilaudid) 1 mg IVPUSH Q2H PRN PRN Reason: Pain Last Admin: 01/26/20 13:25 Dose: 1 mg Sodium Chloride (Normal Saline) 1,000 mls @ 999 mls/hr IV BOLUS ONE Stop: 01/20/20 18:33 Last Infusion: 01/20/20 18:01 Dose: 500 mls/hr Sodium Chloride (Normal Saline) 1,000 mls @ 125 mls/hr IV ASDIRECTED [facility] Last Admin: 01/23/20 04:58 Dose: 125 mls/hr Magnesium Sulfate 4 gm/Potassium Chloride/Sodium Chloride 1,008 mls @ 125 mls/ hr IV ONETIME ONE Stop: 01/22/20 16:31 Last Admin: 01/22/20 09:27 Dose: 125 mls/hr Dextrose/Sodium Chloride (Dextrose 5%-Normal Saline) 1,000 mls @ 125 mls/hr IV ASDIRECTED [facility] Last Admin: 01/24/20 12:14 Dose: 125 mls/hr Lorazepam (Ativan) 1 mg IVPUSH Q8H PRN PRN Reason: Anxiety Last Admin: 01/23/20 09:09 Dose: 1 mg Methadone HCl (Methadone Intensol) 5 mg PO Q3H [facility] Last Admin: 01/27/20 06:39 Dose: Not Given Methadone HCl (Methadone Intensol) 5 mg PO Q3H [facility] Last Admin: 01/25/20 10:51 Dose: 5 mg Ondansetron HCl (Zofran) 4 mg IVPUSH ONETIME ONE Stop: 01/20/20 17:34 Last Admin: 01/20/20 18:02 Dose: 4 mg - Exam General: Alert, Oriented, Mild Distress Neck: Supple, Trachea Midline Lungs: Clear to Auscultation, Decreased Breath Sounds Cardiovascular: Regular Rate, Regular Rhythm GI/Abdominal Exam: Distended, Guarding, Abnormal Bowel Sounds, Mass Sepsis Event Note - Evaluation Sepsis Screening Result: No Definite Risk - Problem List & Annotations (1) Palliative care status SNOMED Code(s): 655991521 Code(s): Z51.5 - ENCOUNTER FOR PALLIATIVE CARE Status: Acute Current Visit: Yes (2) Abdominal pain SNOMED Code(s): 90472888 Code(s): R10.9 - UNSPECIFIED ABDOMINAL PAIN Status: Acute Current Visit: No Qualifiers: Abdominal location: generalized Qualified Code(s): R10.84 - Generalized abdominal pain (3) Metastatic colon cancer in female SNOMED Code(s): 942163006, 292768973 Code(s): C18.9 - MALIGNANT NEOPLASM OF COLON, UNSPECIFIED Status: Acute Priority: High Current Visit: No - Problem List Review Problem List Initiated/Reviewed/Updated: Yes - Plan Plan:: 59 y/o F admitted for SBO likely secondary to metastatic disease 1. Palliative Care for metastatic colon cancer - cont Palliative care. - Hospice is planned upon discharge - cont Phenergan, Zofran and Ativan PRN - cont Dilaudid CADD pump @ 0.5 mg/hr. - Will be arranging care at home, NG tube to remain in place, was replaced yesterday, and will be discharged home with this. Code Status: DNR/DNI/comfort measures Dispo: Safe disposition will be set for Wednesday. Family is moving here this weekend to provide care for her at home. Denies wanting [facility] placement.
[2020-01-28] MEDS ORDERED: HYDROMORPHONE IV SCH (16:00)
[2020-01-28] MEDS ORDERED: SODIUM CHLORIDE 0.9% IV SCH (16:00)
[2020-01-28] MEDS: Dextrose 5%-0.9% NaCl 1,000 ML IV SCH ×2 (17:50→20:58)
[2020-01-28] MEDS: SODIUM CHLORIDE 0.9% IV SCH (18:37)
[2020-01-28] MEDS: HYDROMORPHONE IV SCH (18:37)
[2020-01-28] MEDS: Ondansetron 4 MG/2 ML SDV IVPUSH PRN (20:06)
[2020-01-29] MEDS: Insulin Aspart 100 Units/ML 3 ML Pen SUBCUT SCH ×2 (07:57→12:41)
[2020-01-29 07:59] VITALS: BP 141/84; PULSE 83
[2020-01-29] MEDS: LORazepam 2 MG/ML SDV IVPUSH PRN (09:56)
--- NOTE | 2020-01-29 10:07 | PCM.DCSUM1 ---
Discharge Summary - Hospital Course Brief History: Patient is a 59 year old female with a history of Stage IV colon cancer with mets to liver, peritoneum, and abdominal wall, HTN, CAD, Type II DM , and pacemaker who has had multiple admission for recurrent small bowel obstruction. She was discharge three day ago after being hospitalized for small bowel obstruction. Patient stats she had been doing ok until this afternoon when she developed severe abdominal pain nausea and vomiting. She reports last loose bowel movement was yesterday. She was passing gas this morning. Diagnosis: Stroke: No - Discharge Data Discharge Date: 01/29/20 Discharge Disposition: DC/Tfer to Hospice - Home 51 Condition: Fair - Referral to Home Health Primary Care Physician: PCP None - Discharge Diagnosis/Problem(s) (1) Palliative care status SNOMED Code(s): 306756493 ICD Code: Z51.5 - ENCOUNTER FOR PALLIATIVE CARE Status: Acute Current Visit: Yes (2) Small bowel obstruction SNOMED Code(s): 132170746 ICD Code: K56.609 - UNSP INTESTNL OBST, UNSP TO PARTIAL VERSUS COMPLETE OBST Status: Acute Priority: Medium Current Visit: Yes (3) Colon cancer SNOMED Code(s): 913413104 ICD Code: C18.9 - MALIGNANT NEOPLASM OF COLON, UNSPECIFIED Status: Chronic Priority: High Current Visit: No Qualifiers: Colon location: unspecified part of colon Qualified Code(s): C18.9 - Malignant neoplasm of colon, unspecified (4) Diabetes SNOMED Code(s): 85712827 ICD Code: E11.9 - TYPE 2 DIABETES MELLITUS WITHOUT COMPLICATIONS Status: Chronic Current Visit: No (5) Hypomagnesemia SNOMED Code(s): 250272989 ICD Code: E83.42 - HYPOMAGNESEMIA Status: Acute Current Visit: No (6) GERD (gastroesophageal reflux disease) SNOMED Code(s): 609700414 ICD Code: K21.9 - GASTRO-ESOPHAGEAL REFLUX DISEASE WITHOUT ESOPHAGITIS Status: Chronic Current Visit: No (7) Hypertension SNOMED Code(s): 42313305 ICD Code: I10 - ESSENTIAL (PRIMARY) HYPERTENSION Status: Chronic Current Visit: No Qualifiers: Hypertension type: unspecified Qualified Code(s): I10 - Essential (primary ) hypertension (8) Pacemaker SNOMED Code(s): 316457172 ICD Code: Z95.0 - PRESENCE OF CARDIAC PACEMAKER Status: Chronic Current Visit: No - Patient Summary/Data Consults: Consultations 01/23/20 09:28 Consult to Hospice [CONS] Routine Hospital Course: Admitting Diagnoses: Abdominal pain SBO secondary to metastatic colon cancer Discharge Diagnoses: SBO secondary to Metastatic colon cancer Hospice Palliative care Leanne was admitted secondary to recurring SBO secondary to progressive metastatic colon cancer. NG tube was placed. She was kept comfortable with Dilaudid. General Surgery was consulted, no surgical intervention. I discussed care with Dr Cho Oncology. He agreed with recommendation of Hospice. After long discussion with patient and her family they decided on Hospice. We will keep NG tube in for comfort, may be clamped or set to gravity PRN. May also remain to intermittent suction for comfort. Bowel regimen for rectal use available by Hospice. She was set up on CADD pump last week for pain control with Dilaudid 0.5 mg/hr, she has been very comfortable. She has beenmore anxious, which Ativan helps with. Today she is ready for discharge as family is now in town and the home is ready. Hospice to admit when she arrives at home. She is to reach out to Hospice for concerns. - Patient Instructions Diet: Clear Liquid Diet Driving: Do Not Drive Showering/Bathing: May Shower Notify Provider of: Fever, Increased Pain, Swelling and Redness, Drainage, Nausea and/or Vomiting Other/Special Instructions: Hospice to provide all medications. NG tube to remain in. Clamp PRN or leave to intermittent low suction. - Discharge Plan *PRESCRIPTION DRUG MONITORING PROGRAM REVIEWED*: Not Applicable *COPY OF PRESCRIPTION DRUG MONITORING REPORT IN PATIENT THELMA: Not Applicable Home Medications: Home Meds Diphenhyd/Lidocaine/Nystatin [Magic Mouthwash] 5 ml PO Q4H PRN MDD Oral Ulcers 11/01/19 [History] bisacodyL [Dulcolax] 10 mg RECTAL DAILY PRN #30 supp 12/15/19 [Rx] Ondansetron [Zofran ODT] 4 mg PO Q4HR PRN #30 tab.dis 01/17/20 [Rx] HYDROmorphone [Dilaudid] 25 mg IV Q50H syringe 01/29/20 [Rx] Phenol [Chloraseptic Throat [address]] 1 ml MUCMEM Q2H PRN bottle 01/29/20 [Rx] Oxygen Therapy Mode: Room Air Patient Handouts: Bowel Obstruction, [id number] Referrals: Raman Cho MD [Ordering Only Provider] - - Discharge Summary/Plan Comment DC Time >30 min.: No - Patient Data Vitals - Most Recent: Last Vital Signs Temp 99.4 F 01/29/20 07:58 Pulse 83 01/29/20 07:58 Resp 18 01/29/20 07:58 BP 141/84 H 01/29/20 07:58 Pulse Ox 95 01/29/20 07:58 Weight - Most Recent: 68.3 kg I&O - Last 24 hours: Intake & Output 01/28/20 01/29/20 01/29/20 22:59 06:59 14:59 Intake Total 756 830 Output Total 600 700 Balance 156 130 Lab Results - Last 24 hrs: Laboratory Results - last 24 hr 01/28/20 01/28/20 01/29/20 Range/Units 11:51 17:49 00:10 POC Glucose 150 H 144 H 152 H (60-110) mg/dL 01/29/20 Range/Units 06:21 POC Glucose 158 H (60-110) mg/dL Med Orders - Current: Current Medications Dextrose/Sodium Chloride (Dextrose 5%-Normal Saline) 1,000 mls @ 50 mls/hr IV Q20H [facility] Last Admin: 01/28/20 20:58 Dose: Not Given Hydromorphone HCl 25 mg/ (Sodium Chloride) 100 mls @ 2 mls/hr IV Q50H [facility] Last Admin: 01/28/20 18:37 Dose: 2 mls/hr [facility]ulin Asp[facility] ([facility]) [facility]; Protocol Last Admin: 01/29/20 07:57 Dose: Not Given Lorazepam (Ativan) 1 mg IVPUSH Q4H PRN PRN Reason: Anxiety Last Admin: 01/29/20 09:56 Dose: 1 mg Ondansetron HCl (Zofran) 4 mg IVPUSH Q4H PRN PRN Reason: Nausea Last Admin: 01/28/20 20:06 Dose: 4 mg Phenol/Menthol (Chloraseptic Throat [address]) 1 ml MUCMEM Q2H PRN PRN Reason: throat spray Last Admin: 01/26/20 22:03 Dose: 1 spray Promethazine HCl (Phenergan) 25 mg IM Q6H PRN PRN Reason: Nausea Last Admin: 01/26/20 13:32 Dose: 25 mg Sodium Chloride (Saline Flush) 10 ml FLUSH ASDIRECTED PRN PRN Reason: Keep Vein Open Last Admin: 01/20/20 18:02 Dose: 10 ml Sodium Chloride (Saline Flush) 2.5 ml FLUSH ASDIRECTED PRN PRN Reason: Keep Vein Open Last Admin: 01/20/20 18:02 Dose: 2.5 ml Discontinued Medications Dextrose/Water (Dextrose 50% In Water) 50 ml IVPUSH ONETIME ONE Stop: 01/23/20 05:14 Last Admin: 01/23/20 05:25 Dose: 50 ml Fentanyl (Fentanyl) 25 mcg IVPUSH ONETIME ONE Stop: 01/20/20 19:46 Last Admin: 01/20/20 20:08 Dose: Not Given Heparin Sodium (Porcine) (Heparin Sodium) 5,000 units SUBCUT Q8H [facility] Last Admin: 01/23/20 15:08 Dose: Not Given Hydromorphone HCl (Dilaudid) 1 mg IVPUSH Q2H PRN PRN Reason: Pain Last Admin: 01/25/20 07:12 Dose: 1 mg Hydromorphone HCl (Dilaudid) 1 mg IVPUSH Q2H PRN PRN Reason: Pain Stop: 01/26/20 10:30 Last Admin: 01/26/20 08:51 Dose: 1 mg Hydromorphone HCl (Dilaudid) 1 mg IVPUSH Q2H PRN PRN Reason: Pain Last Admin: 01/26/20 13:25 Dose: 1 mg Sodium Chloride (Normal Saline) 1,000 mls @ 999 mls/hr IV BOLUS ONE Stop: 01/20/20 18:33 Last Infusion: 01/20/20 18:01 Dose: 500 mls/hr Sodium Chloride (Normal Saline) 1,000 mls @ 125 mls/hr IV ASDIRECTED [facility] Last Admin: 01/23/20 04:58 Dose: 125 mls/hr Magnesium Sulfate 4 gm/Potassium Chloride/Sodium Chloride 1,008 mls @ 125 mls/ hr IV ONETIME ONE Stop: 01/22/20 16:31 Last Admin: 01/22/20 09:27 Dose: 125 mls/hr Dextrose/Sodium Chloride (Dextrose 5%-Normal Saline) 1,000 mls @ 125 mls/hr IV ASDIRECTED [facility] Last Admin: 01/24/20 12:14 Dose: 125 mls/hr Lorazepam (Ativan) 1 mg IVPUSH Q8H PRN PRN Reason: Anxiety Last Admin: 01/23/20 09:09 Dose: 1 mg Methadone HCl (Methadone Intensol) 5 mg PO Q3H [facility] Last Admin: 01/27/20 06:39 Dose: Not Given Methadone HCl (Methadone Intensol) 5 mg PO Q3H [facility] Last Admin: 01/25/20 10:51 Dose: 5 mg Ondansetron HCl (Zofran) 4 mg IVPUSH ONETIME ONE Stop: 01/20/20 17:34 Last Admin: 01/20/20 18:02 Dose: 4 mg
[2020-01-29] MEDS: Ondansetron 4 MG/2 ML SDV IVPUSH PRN (12:42)
== END 2020-01-29 13:15 | disposition hospice, home (50) | DRG 375 ==
LOC: MW.ED 17:27 → MW.MS 18:38
PROVIDERS: ADMIT Internal Medicine; ATTEND Internal Medicine
PROC: 0D9670Z Drainage of Stomach with Drainage Device, Via Natural or Artificial Opening (ICD-10-PCS; principal; 2020-01-20)
DX: K56.699 Other intestinal obstruction unspecified as to partial versus complete obstruction (principal); C18.9 Malignant neoplasm of colon, unspecified; K56.609 Unspecified intestinal obstruction, unspecified as to partial versus complete obstruction; C78.7 Secondary malignant neoplasm of liver and intrahepatic bile duct; C78.6 Secondary malignant neoplasm of retroperitoneum and peritoneum; I10 Essential (primary) hypertension; I25.10 Atherosclerotic heart disease of native coronary artery without angina pectoris; E11.9 Type 2 diabetes mellitus without complications; Z51.5 Encounter for palliative care; H54.7 Unspecified visual loss; Z79.84 Long term (current) use of oral hypoglycemic drugs; E83.42 Hypomagnesemia; Z85.038 Personal history of other malignant neoplasm of large intestine; Z85.05 Personal history of malignant neoplasm of liver; Z66 Do not resuscitate; E87.6 Hypokalemia; K21.9 Gastro-esophageal reflux disease without esophagitis; E78.00 Pure hypercholesterolemia, unspecified; F41.9 Anxiety disorder, unspecified; F32.9 Major depressive disorder, single episode, unspecified; Z90.89 Acquired absence of other organs; Z90.49 Acquired absence of other specified parts of digestive tract; Z90.710 Acquired absence of both cervix and uterus; Z90.79 Acquired absence of other genital organ(s); Z79.899 Other long term (current) drug therapy; Z88.5 Allergy status to narcotic agent; Z88.8 Allergy status to other drugs, medicaments and biological substances; Z79.4 Long term (current) use of insulin; Z95.0 Presence of cardiac pacemaker
CPT/HCPCS: 36415; 74018; 74018-26; 74176; 74176-26; 80053; 81001; 82962; 83605; 83690; 83735; 84484; 85025; 85027; 93005; 96374; 99291; A9270-GY; J1170; J1644; J1815-GY; J2060; J2405; J2550; J3475; J3480; J7030; J7042; J7050